=== PATIENT | female | born 1930 | race Caucasian/White ===

== ENCOUNTER → 2017-01-19 | Outpatient (CLI) | payer OTHER ==
[~2017-01-19] MED LIST: ALBU1AER9 INH; ASPCH81X PO; AZEL30SP NAE; CALC0.2510 PO; CALC500C3 PO; CEPH500C PO; CHOL20009 PO; DOCU100C31 PO; FLUC100T4 PO; FLUT0.15 NAE; FRS/40 PO; FURO-85 PO; INSDGI SC; INSU100I SQ; IPRASOL4 INH; KFL500 PO; LOSA1TAB PO; METO25TA56 PO; MONT1TAB3 PO; NTRSL3 UT; NYSCR30 EXT; PANT40TA PO; PRED20TA2 PO; SIME80CH PO; SYMIN160 INH; WARF5TAB90 PO
--- NOTE | 2017-01-19 14:24 | DIAGNOSTIC IMAGING REPORT ---
VIDEO SWALLOW STUDY CLINICAL HISTORY: Dyspepsia. COMPARISON STUDY: Video swallow dated 12/21/2009. Fluoroscopy time: 2.4 minutes. FINDINGS: Fluoroscopic guidance was provided to the department of speech pathology in performing a video swallow study. The patient consumed barium-impregnated pudding, cracker with paste, nectar thick liquid, and thin barium while the swallowing mechanism was observed in real-time. No penetration or aspiration was seen with any of the sampled textures. Mild esophageal dysmotility was observed. IMPRESSION: No penetration or aspiration was seen with any of the sampled textures. See dedicated speech pathology report for detailed findings and recommendations. Dictated: 01/19/2017 1:15 PM Transcribed: 01/19/2017 2:24 PM [facility] Electronically signed by: Dinh Skelton M.D. 01/19/2017 2:27 PM Dictated Date/Time: 01/19/2017 1:15 PM
--- NOTE | 2017-01-20 10:17 | SWALLOWING EVALUATION ---
HISTORY: This 86 year old woman was referred for a video swallow study at [facility] in order to rule out aspiration and identify the safest consistencies for optimal oral intake. The patient is reporting persistent solid food dysphagia. She often feels as though food becomes stuck in her throat, takes very small bites of food, and also reports frequent globus sensation. PMH is significant for heart failure, CAD, PVD, hypertension, hyperlipidemia, A-fib, DM type 2, asthma, CRI, and EF in the 50's. She has participated 2 previous EGD's (2013 and 2015) with dilatation and is scheduled for another in January 2017. An upper GI was performed in 2012 which identified esophageal dysmotility. A previous video swallow was completed as well in 2009, where poornima-pharyngeal swallowing was wnl, but had signs of esophageal dysfunction. Currently the patient describes a mechanical soft diet at home. PROCEDURE: The patient was seen in the Radiology Department of [facility] for the [facility]. Cursory examination of the oral cavity revealed upper and lower dentures of adequate fit. Movement of the articulators was wnl. The patient was seated upright in a wheelchair and was viewed in both the Anterior-Posterior (A-P) and Lateral planes. Volitional phonation exercises completed in the A-P plane revealed bilateral vocal fold movement and vocal intensity was judged to be low. In the lateral plane, the patient was given the following boluses: 1 tsp. thin liquid barium x 2, single swallow thin liquid barium self-presented from a cup, serial swallows of thin liquid barium self-presented via straw, 1 tsp. nectar-thick liquid barium, single swallow nectar-thick liquid barium self-presented from a cup, 1 tsp. barium pudding, and 1 club cracker with barium paste. The patient was then repositioned into the A-P plane and given the following boluses: 1 tsp. nectar-thick liquid barium and 1 tsp. barium pudding. Of note, this patient had difficulty with accepting any more than 1/2 teaspoon presentations. Even when she self-presented she took very small amounts. When educated and provided with prompts to take larger boluses for assessment purposes, she stated "I can't". RESULTS: Oral Stage: Lip closure was reduced as there was escape that progressed toward the mid-chin, mainly with teaspoon sips of liquids. The patient presented with premature spillage of less than half of the bolus during the liquid bolus task. Mastication and lingual motion for bolus transport was slow. There was trace retention lining the tongue and palate after the swallow. The initiation of the pharyngeal swallow was delayed, and triggered when the bolus head reached the pyriforms. Pharyngeal Stage: Soft palate elevation was complete. Laryngeal elevation revealed complete superior movement of the thyroid cartilage with complete approximation of the arytenoids to the epiglottic base. Anterior hyoid excursion and epiglottic deflection were complete. Laryngeal vestibular closure was complete with no evidence of contrast or air located in the vestibule at the height of the swallow. The pharyngeal stripping wave and pharyngeal contraction were also complete. The opening to the pharyngoesophageal segment (PES) was partially reduced, with partial distention and duration of the opening, but no significant bolus flow obstruction. Tongue base retraction was mildly reduced, with a narrow column of contrast being located between the tongue base and pharyngeal wall during the swallow. There was trace retention located in the valleculae and pyriforms after the swallow. There was no evidence of laryngeal penetration or aspiration during this study. Esophageal stage: There was mild mid esophageal retention noted. SUMMARY/RECOMMENDATIONS: This patient presents normal poornima-pharyngeal swallowing mechanics. She also presents with some mild signs and symptoms of esophageal dysfunction. The following is recommended: 1. Mechanical soft diet, slippery, and thin liquids. 2. Aspiration and GERD precautions. Fully upright for all p.o. intake and for 30-60 minutes after meals. HOB elevated to at least 30 degrees at all times, to include while sleeping. 3. Safe swallow strategies: Alternate solids and liquids as needed. Rest breaks and small frequent meals (already follows this). A summary of the results and recommendations was discussed with the patient with verbal understanding immediately following the study. She was also provided with both verbal and written education regarding a "slippery" diet to assist with improved comfort while eating. She typically already avoids dry, thick, and pasty foods as well. Verbal understanding was given. Thank you for referral of this patient. Please contact me at if any additional information is needed.
== END | disposition home or self-care (01) ==
LOC: C.RAD 10:29
PROVIDERS: ATTEND Nurse Practitioner Family
DX: R13.13 Dysphagia, pharyngeal phase (principal); K21.9 Gastro-esophageal reflux disease without esophagitis

== ENCOUNTER → 2017-02-01 | Day surgery (SDC) | payer OTHER ==
[2017-01-25 10:33] VITALS: Ht 165.1 cm; Wt 95.5 kg
[~2017-02-01] VITALS: Ht 165.1 cm; Wt 95.5 kg
[~2017-02-01] MED LIST changes: -CALC500C3 PO; -FLUC100T4 PO; -FURO-85 PO; +LIDOCAINE HCL 2% 2 ML VIAL (20MG/ML) ONE; -LOSA1TAB PO; -PRED20TA2 PO; +PROPOFOL IV EMULSION 10 MG/ML 20 ML VIAL IV ONE; -SIME80CH PO
[2017-02-01 08:20] VITALS: TEMP 36.4
--- NOTE | 2017-02-01 08:35 | Endo History and Physical ---
History & Physical Date of Service: February 01, 2017. Chief Complaint: dysphagia Referring Physician: Dr. Agustina Mock History of Present Illness History of recurrent solid food dysphagia + a tubular adenoma of the doudenum. Past Medical History Atrial Fibrillation, Diabetes, Angioplasty/Stent, Arthritis, Asthma, Gastrointestinal Disorder, Reflux, Blood Dyscrasias, High Cholesterol, Heart Disease, CHF, Hypertension, Kidney Disease Past Surgical History Hx Cardiac Surgery: Yes (CARDIAC CATH X 2 (5 TOTAL STENTS PLACED), CARDIOVERSION) Hx Internal Defibrillator: No Hx Pacemaker: No Hx Abdominal Surgery: Yes (BRIAN, NITHYA) Hx of Implantable Prosthesis: No Hx Post-Op Nausea and Vomiting: No Hx Cancer Surgery: No Hx Thoracic Surgery: No Hx Orthopedic: No Hx Urinary Tract Surgery: No Family History IBD Social History Smoking Status: Never Smoker Hx Substance Use: No Hx Alcohol Use: No Allergies Coded Allergies: Clofibrate (Verified Allergy, Severe, SWELLING, 01/25/17) SWELLING Rabeprazole (Verified Allergy, Intermediate, SOB/COUGHING AND THROAT FELT TIGHT/ABD. CRAMPING, 01/25/17) Fexofenadine (Verified Allergy, Mild, RASH, 01/25/17) Fluvastatin (Verified Allergy, Mild, HIVES, 01/25/17) Metformin (Verified Allergy, Mild, URINARY FREQUENCY/RASH/ITCH, 01/25/17) URINARY FREQUENCY Penicillins (Verified Allergy, Mild, HIVES, 01/25/17) (PER GEIGINGER NOTES, TOLERATES AMOXICILLIN FINE) Quinolones (Verified Allergy, Mild, RASH, 01/25/17) Chlorpropamide (Verified Allergy, Unknown, 01/25/17) Fibrates (Verified Allergy, Unknown, SWELLING, 01/25/17) Morphine and Related (Verified Allergy, Unknown, ITCHY/HIVES, 01/25/17) Moxifloxacin (Verified Allergy, Unknown, ITCHY/NAUSEA, 01/25/17) NSAIDs (Verified Allergy, Unknown, NAPROSYN, 01/25/17) Sulfa Drugs (Verified Allergy, Unknown, 01/25/17) Codeine (Verified Adverse Reaction, Mild, FEELS "HIGH" ON/ITCHING, 01/25/17) FEELS "HIGH" ON Gemfibrozil (Verified Adverse Reaction, Mild, ABDOMINAL CRAMPS AND DIZZINESS, 01/25/17) ABDOMINAL CRAMPS Rofecoxib (Verified Adverse Reaction, Mild, INDIGESTION, 01/25/17) INDIGESTION CI Pigment Blue 63 (Verified Adverse Reaction, Unknown, MYALGIAS AND CRAMPS, 01/25/17) Dexlansoprazole (Verified Adverse Reaction, Unknown, MYALGIAS AND CRAMPS, 01/25/17) Lisinopril (Verified Adverse Reaction, Unknown, COUGH, 01/25/17) Current Medications Reported Home Medications Medications Dose Route/Sig Max Daily Dose Days Date Category Dose Instructions Nystatin Cream (Nystatin) 90 Appln/30 Gm Cr 0 EXT PRN 01/25/17 Reported APPLY TO AFFECTED AREA BID Dymista (Azelastine Hcl-Fluticasone Pro) 1 Spr Spr 1 [place] JACOBO BID 30 01/25/17 Reported Vitamin D (Cholecalciferol) 2,000 Unit Tab 1 Tab PO BID 01/25/17 Reported Flonase Allergy Relief (Fluticasone Propionate (Nasal)) 50 Mcg/Act Spr 1 [place] JACOBO BID 01/25/17 Reported Symbicort 160/4.5 Inhaler (Budesonide/Formoterol Fumarate) Aero 2 Puffs INH BID 09/21/16 Reported Humalog (Insulin Lispro (Human)) 100 Unit/Ml Inj 2 Units SQ TIDM 09/21/16 Reported Lopressor (Metoprolol Tartrate) 25 Mg Tab 12.5 Mg PO BID 09/21/16 Reported Docusate Sodium 100 Mg Cap 100 Mg PO HS 09/21/16 Reported Lasix (Furosemide) 40 Mg Tab 40 Mg PO DAILY 09/21/16 Reported Nitrostat (Nitroglycerin) 0.3 Mg Tab 0.3 Mg UT UD PRN 08/31/[address] 1 TAB UNDER TONGUE EVERY 5 MINUTES NEEDED UP TO 3 DOSES IN 15 MINUTES Aspirin Chewable (Aspirin) 81 Mg Chew 81 Mg PO QPM 08/31/15 Reported Coumadin (Warfarin Sodium) 5 Mg Tab 5 Mg PO 2XWK 08/31/15 Reported TAKES MONDAY AND MONDAY Coumadin (Warfarin Sodium) 5 Mg Tab 2.5 Tab PO 4XWK 08/31/15 Reported TAKE 1/2 TABLET MONDAY, MONDAY, MON, MONDAY, MONDAY Proair Hfa (Albuterol) Aers 2 Puffs INH Q4 PRN 08/31/15 Reported Lantus (Insulin Glargine) Vial 24 Units SC QAM 07/11/14 Reported Duoneb (Ipratropium-Albuterol) 3 Ml Nebu 1 Treatment INH QID PRN 07/11/14 Reported Singulair (Montelukast Sodium) 10 Mg Tab 10 Mg PO QAM 07/11/14 Reported Rocaltrol Cap (Calcitriol) 0.25 Mcg Cap 0.25 Mcg PO QAM 07/11/14 Reported Protonix (Pantoprazole Sodium) 40 Mg Tab 40 Mg PO QAM 07/11/14 Reported Vital Signs Weight (Kilograms): 95.45 Height (Feet): 5 Height (Inches): 5 Date Time Temp Pulse Resp B/P Pulse Ox O2 Delivery O2 Flow Rate FiO2 02/01/17 08:20 36.4 73 20 180/65 98 Room Air Physical Exam General Appearance: no apparent distress Cardiovascular: Heart Auscultation: II/ ARTURO Abdomen: Inspection & Palpation: soft Liver: non-tender Assessment and Plan Evaluation for recurrent dysphagia, for EGD today. We have discussed the risks to include bleeding, infection, perforation, pain, and infection.
--- NOTE | 2017-02-01 09:05 | Discharge Instructions ---
Endoscopy Patient Instructions Date / Procedure(s) Performed February 01, 2017. EGD Allergy Information Coded Allergies: Clofibrate (Verified Allergy, Severe, SWELLING, 01/25/17) SWELLING Rabeprazole (Verified Allergy, Intermediate, SOB/COUGHING AND THROAT FELT TIGHT/ABD. CRAMPING, 01/25/17) Fexofenadine (Verified Allergy, Mild, RASH, 01/25/17) Fluvastatin (Verified Allergy, Mild, HIVES, 01/25/17) Metformin (Verified Allergy, Mild, URINARY FREQUENCY/RASH/ITCH, 01/25/17) URINARY FREQUENCY Penicillins (Verified Allergy, Mild, HIVES, 01/25/17) (PER GEIGINGER NOTES, TOLERATES AMOXICILLIN FINE) Quinolones (Verified Allergy, Mild, RASH, 01/25/17) Chlorpropamide (Verified Allergy, Unknown, 01/25/17) Fibrates (Verified Allergy, Unknown, SWELLING, 01/25/17) Morphine and Related (Verified Allergy, Unknown, ITCHY/HIVES, 01/25/17) Moxifloxacin (Verified Allergy, Unknown, ITCHY/NAUSEA, 01/25/17) NSAIDs (Verified Allergy, Unknown, NAPROSYN, 01/25/17) Sulfa Drugs (Verified Allergy, Unknown, 01/25/17) Codeine (Verified Adverse Reaction, Mild, FEELS "HIGH" ON/ITCHING, 01/25/17) FEELS "HIGH" ON Gemfibrozil (Verified Adverse Reaction, Mild, ABDOMINAL CRAMPS AND DIZZINESS, 01/25/17) ABDOMINAL CRAMPS Rofecoxib (Verified Adverse Reaction, Mild, INDIGESTION, 01/25/17) INDIGESTION CI Pigment Blue 63 (Verified Adverse Reaction, Unknown, MYALGIAS AND CRAMPS, 01/25/17) Dexlansoprazole (Verified Adverse Reaction, Unknown, MYALGIAS AND CRAMPS, 01/25/17) Lisinopril (Verified Adverse Reaction, Unknown, COUGH, 01/25/17) Discharge Date / Findings February 01, 2017. Normal esophagus 2 gastric polyps 1 small duodenal polyp Medication Instructions Stopped Medication(s): last dose Warfarin on Reported Home Medications Medications Dose Route/Sig Max Daily Dose Days Date Category Dose Instructions Nystatin Cream (Nystatin) 90 Appln/30 Gm Cr 0 EXT PRN 01/25/17 Reported APPLY TO AFFECTED AREA BID Dymista (Azelastine Hcl-Fluticasone Pro) 1 Spr Spr 1 [place] JACOBO BID 30 01/25/17 Reported Vitamin D (Cholecalciferol) 2,000 Unit Tab 1 Tab PO BID 01/25/17 Reported Flonase Allergy Relief (Fluticasone Propionate (Nasal)) 50 Mcg/Act Spr 1 [place] JACOBO BID 01/25/17 Reported Symbicort 160/4.5 Inhaler (Budesonide/Formoterol Fumarate) Aero 2 Puffs INH BID 09/21/16 Reported Humalog (Insulin Lispro (Human)) 100 Unit/Ml Inj 2 Units SQ TIDM 09/21/16 Reported Lopressor (Metoprolol Tartrate) 25 Mg Tab 12.5 Mg PO BID 09/21/16 Reported Docusate Sodium 100 Mg Cap 100 Mg PO HS 09/21/16 Reported Lasix (Furosemide) 40 Mg Tab 40 Mg PO DAILY 09/21/16 Reported Nitrostat (Nitroglycerin) 0.3 Mg Tab 0.3 Mg UT UD PRN 08/31/[address] 1 TAB UNDER TONGUE EVERY 5 MINUTES NEEDED UP TO 3 DOSES IN 15 MINUTES Aspirin Chewable (Aspirin) 81 Mg Chew 81 Mg PO QPM 08/31/15 Reported Coumadin (Warfarin Sodium) 5 Mg Tab 5 Mg PO 2XWK 08/31/15 Reported TAKES MONDAY AND MONDAY Coumadin (Warfarin Sodium) 5 Mg Tab 2.5 Tab PO 4XWK 08/31/15 Reported TAKE 1/2 TABLET MONDAY, MONDAY, MON, MONDAY, MONDAY Proair Hfa (Albuterol) Aers 2 Puffs INH Q4 PRN 08/31/15 Reported Lantus (Insulin Glargine) Vial 24 Units SC QAM 07/11/14 Reported Duoneb (Ipratropium-Albuterol) 3 Ml Nebu 1 Treatment INH QID PRN 07/11/14 Reported Singulair (Montelukast Sodium) 10 Mg Tab 10 Mg PO QAM 07/11/14 Reported Rocaltrol Cap (Calcitriol) 0.25 Mcg Cap 0.25 Mcg PO QAM 07/11/14 Reported Protonix (Pantoprazole Sodium) 40 Mg Tab 40 Mg PO QAM 07/11/14 Reported Provider Instructions Activity Restrictions - No exercising or heavy lifting for 24 hours. - Do not drink alcohol the day of the procedure. - Do not drive a car or operate machinery until the day after the procedure. - Do not make any important decisions or sign important papers in 24 hours after the procedure. Following Day: - Return to full activity which may include returning to work/school. Diet Start your diet with liquids and light foods (jello, soup, juice, toast). Then eat your usual diet if not nauseated. Treatment For Common After Affects For mild abdominal pain, bloating, or excessive gas: - Rest - Eat lightly - Lie on right side Follow-Up Information Follow-up with Dr. Agustina Mock as scheduled Await pathology results If difficulty swallowing persists would consider an ENT evaluation Anesthesia Information What You Should Know You have had a procedure that required some medicine to reduce anxiety and discomfort. This treatment is called moderate sedation. After receiving the treatment, you may be sleepy, but you will be able to breathe on your own. The effects of the treatment may last for several hours. Follow these instructions along with Activity/Diet recommendations noted above: * Do NOT do anything where dizziness or clumsiness would be dangerous. * Rest quietly at home today, then you can be up and about tomorrow. * Have a responsible person stay with you the rest of today. * You may have had an I.V. today. If so, you may take the dressing off later today. Recommendations Call your doctor if: * Trouble breathing * Continuous vomiting for more than 24 hours * Temperature above 101 degrees * Severe abdominal pain or bloating * Pain not relieved by pain medicine ordered * There is increased drainage or redness from any incision * A large amount of rectal bleeding greater than 2-3 tablespoons. (If you had a polyp/s removed or have hemorrhoids, a small amount of blood - from the rectum is to be expected.) * You have any unanswered questions or concerns. IN THE EVENT OF A SERIOUS EMERGENCY, GO TO THE NEAREST EMERGENCY ROOM Your discharge instructions were prepared by provider Gisselle Cooley. Patient Instructions Signature Page Traci Christensen Patient (or Guardian) Signature/Date: I have read and understand the instructions given to me by my caregivers. Caregiver/RN/Doctor Signature/Date: The above-named patient and/or guardian has received patient instructions on this date. + Original Patient Signature Page (only) stays with chart. Please make copy for patient.
[2017-02-01 09:30] VITALS: BP 133/51; PULSE 71; O2SAT 97
--- NOTE | 2017-02-01 09:44 | Anesthesiology Progress Note ---
Anesthesia Post Op Note Date & Time February 01, 2017 at 09:43 Vital Signs Pain Intensity: 0 Vital Signs Past 12 Hours Date Time Temp Pulse Resp B/P Pulse Ox O2 Delivery O2 Flow Rate FiO2 02/01/17 09:30 71 20 133/51 97 Room Air 02/01/17 09:15 71 20 130/52 98 Room Air 02/01/17 09:00 61 20 102/41 98 Room Air 02/01/17 08:20 36.4 73 20 180/65 98 Room Air Notes Mental Status: alert / awake / arousable, participated in evaluation Pt Amnestic to Procedure: Yes Nausea / Vomiting: adequately controlled Pain: adequately controlled Airway Patency, RR, SpO2: stable & adequate BP & HR: stable & adequate Hydration State: stable & adequate Anesthetic Complications: no major complications apparent
--- NOTE | 2017-02-01 09:46 | GI REPORT ---
Procedure Date: 02/01/2017 8:18 AM Procedure: Upper GI endoscopy Indications: Dysphagia Medicines: Monitored Anesthesia Care Complications: No immediate complications. Estimated blood loss: Minimal. Estimated Blood Loss: Estimated blood loss was minimal. Procedure: Pre-Anesthesia Assessment: - Prior to the procedure, a History and Physical was performed, and patient medications, allergies and sensitivities were reviewed. The patient's tolerance of previous anesthesia was reviewed. - The risks and benefits of the procedure and the sedation options and risks were discussed with the patient. All questions were answered and informed consent was obtained. - Patient identification and proposed procedure were verified prior to the procedure by the physician, the nurse and the system support developer. The procedure was verified in the procedure room. - Pre-procedure physical examination revealed no contraindications to sedation. - ASA Grade Assessment: III - A patient with severe systemic disease. - After reviewing the risks and benefits, the patient was deemed in satisfactory condition to undergo the procedure. - The anesthesia plan was to use monitored anesthesia care (MAC). - Immediately prior to administration of medications, the patient was re-assessed for adequacy to receive sedatives. - The heart rate, respiratory rate, oxygen saturations, blood pressure, adequacy of pulmonary ventilation, and response to care were monitored throughout the procedure. - The physical status of the patient was re-assessed after the procedure. After obtaining informed consent, the endoscope was passed under direct vision. Throughout the procedure, the patient's blood pressure, pulse, and oxygen saturations were monitored continuously. The scope was introduced through the mouth, and advanced to the second part of duodenum. The upper GI endoscopy was accomplished without difficulty. The patient tolerated the procedure well. Findings: No endoscopic abnormality was evident in the esophagus to explain the patient's complaint of dysphagia. It was decided, however, to proceed with dilation of the entire esophagus. A guidewire was placed and the scope was withdrawn. Dilation was performed with a Savary dilator with no resistance at 54 Fr. The endoscope was then reinserted to evaluate the success of the procedure. Estimated blood loss: none. The Z-line was regular and was found 36 cm from the incisors. Two 7 to 10 mm semi-sessile polyps with no bleeding and no stigmata of recent bleeding were found in the gastric body. Biopsies were taken with a cold forceps for histology. Estimated blood loss was minimal. The duodenal bulb was normal. One 5 mm sessile polyp with no bleeding was found in the second part of the duodenum. The polyp was removed with a cold biopsy forceps. Resection and retrieval were complete. Estimated blood loss was minimal. The gastric fundus, incisura and gastric antrum were normal. Impression: - No endoscopic esophageal abnormality to explain patient's dysphagia. Esophagus dilated. Dilated. - Z-line regular, 36 cm from the incisors. - Two gastric polyps. Biopsied. - Normal duodenal bulb. - One duodenal polyp. Resected and retrieved. - Normal gastric fundus, incisura and antrum. Recommendation: - Discharge patient to home (ambulatory). - Advance diet as tolerated today. - Observe patient's clinical course following today's procedure with therapeutic intervention. - Await pathology results. - Repeat the upper endoscopy PRN for retreatment. Consider ENT evalaution if symptoms persist. Gisselle Cooley D.O. Gisselle Cooley DO 02/01/2017 9:45:57 AM This report has been signed electronically. Note Initiated On: 02/01/2017 8:18 AM I attest to the content of the Intraoperative Record and orders documented therein, exceptions below
== END | disposition home or self-care (01) ==
LOC: C.GI 07:47
PROVIDERS: ATTEND Internal Medicine Gastroenterology
DX: R13.10 Dysphagia, unspecified (principal); K31.7 Polyp of stomach and duodenum; E11.22 Type 2 diabetes mellitus with diabetic chronic kidney disease; N18.3 Chronic kidney disease, stage 3 (moderate); I12.9 Hypertensive chronic kidney disease with stage 1 through stage 4 chronic kidney disease, or unspecified chronic kidney disease; I48.91 Unspecified atrial fibrillation; J45.909 Unspecified asthma, uncomplicated; E78.00 Pure hypercholesterolemia, unspecified; I50.9 Heart failure, unspecified; J44.9 Chronic obstructive pulmonary disease, unspecified; Z90.49 Acquired absence of other specified parts of digestive tract; Z88.0 Allergy status to penicillin; Z88.5 Allergy status to narcotic agent; Z88.2 Allergy status to sulfonamides; Z79.4 Long term (current) use of insulin; Z79.82 Long term (current) use of aspirin; Z79.01 Long term (current) use of anticoagulants; Z68.35 Body mass index [BMI] 35.0-35.9, adult

== ENCOUNTER 2018-05-04 10:51 | Inpatient (IN) | payer OTHER ==
[~2018-05-04] VITALS: Ht 162.6 cm; Wt 100.5 kg
[~2018-05-04 10:51] MED LIST changes: +ACET-1256 PO; -ALBU1AER9 INH; -CEPH500C PO; -CHOL20009 PO; -INSDGI SC; +INSU100I23 SC; +IPRA-64 INH; -IPRASOL4 INH; -KFL500 PO; +LCTX PO; -LIDOCAINE HCL 2% 2 ML VIAL (20MG/ML) ONE; -NYSCR30 EXT; -PROPOFOL IV EMULSION 10 MG/ML 20 ML VIAL IV ONE; +VNTHFA/IN INH
--- NOTE | 2018-05-04 11:49 | EMERGENCY ROOM VISIT NOTE ---
History Report prepared by Luis: Ly Huber Under the Supervision of: Dr. Yomi Denny M.D. 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 She states her wound is seeping and quite painful. She went to the wound clinic where she was supposed to receive an outpatient PICC line however, she had no one who could help her at home so she was sent to the ED for possible further evaluation. Pt has some nausea but denies any fevers, vomiting. She has a hx of diabetes. 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 A total of ten systems were reviewed and were otherwise negative. Past Medical & Surgical Medical Problems: (1) Bronchitis (2) Cellulitis (3) Chest pain (4) Open wound of left hip (5) Venous stasis Family History Heart disease Social History Smoking Status: Never Smoker Drug Use: none Marital Status: Occupation Status: retired Current/Historical Medications Scheduled Aspirin (Aspirin Chewable), 81 MG PO QPM Azelastine Hcl-Fluticasone Pro (Dymista), 2 SPRY JACOBO BID Budesonide/Formoterol Fumarate (Symbicort 160/4.5 Inhaler ), 2 PUFFS INH BID Calcitriol (Calcitriol), 0.5 MCG PO DAILY Furosemide (Lasix), 20 MG PO BID Hydrocortisone 2.5% (Rectal) (Anusol-Hc 2.5%), 1 APPLN TOP TID Hydrocortisone Acetate (Anucort-Hc), 1 SUPP AK BID Insulin Glargine (Basaglar Kwikpen), 30 UNITS SC DAILY Losartan Potassium (Losartan Potassium), 12.5 MG PO DAILY Metoprolol Tartrate (Lopressor) (Lopressor), 12.5 MG PO BID Montelukast Sodium (Singulair), 10 MG PO QAM Nystatin (Nystatin Cream), 0 EXT PRN Pantoprazole (Protonix), 40 MG PO QAM Warfarin Sodium (Coumadin), 2.5 TAB PO 3XWK Warfarin Sodium (Coumadin), 5 MG PO 4XWK Scheduled PRN Albuterol Hfa (Ventolin Hfa), 2 PUFFS INH Q4 PRN for SOB/Wheezing Allergies Coded Allergies: Clofibrate (Verified Allergy, Severe, SWELLING, 05/04/18) SWELLING Rabeprazole (Verified Allergy, Intermediate, SOB/COUGHING AND THROAT FELT TIGHT/ABD. CRAMPING, 05/04/18) Fexofenadine (Verified Allergy, Mild, RASH, 05/04/18) Fibrates (Verified Allergy, Mild, SWELLING, 05/04/18) Fluvastatin (Verified Allergy, Mild, HIVES, 05/04/18) Metformin (Verified Allergy, Mild, URINARY FREQUENCY/RASH/ITCH, 05/04/18) URINARY FREQUENCY Morphine and Related (Verified Allergy, Mild, ITCHY/HIVES, 05/04/18) Moxifloxacin (Verified Allergy, Mild, ITCHY/NAUSEA, 05/04/18) Penicillins (Verified Allergy, Mild, HIVES, 05/04/18) (PER GEIGINGER NOTES, TOLERATES AMOXICILLIN FINE) Quinolones (Verified Allergy, Mild, RASH, 05/04/18) Chlorpropamide (Verified Allergy, Unknown, UNKNOWN, 05/04/18) NSAIDs (Verified Allergy, Unknown, UNKNOWN, 05/04/18) Sulfa Drugs (Verified Allergy, Unknown, UNKNOWN, 05/04/18) CI Pigment Blue 63 (Verified Adverse Reaction, Mild, MYALGIAS AND CRAMPS, 05/04/18) Codeine (Verified Adverse Reaction, Mild, FEELS "HIGH" ON/ITCHING, 05/04/18 ) FEELS "HIGH" ON Dexlansoprazole (Verified Adverse Reaction, Mild, MYALGIAS AND CRAMPS, 07/12) Gemfibrozil (Verified Adverse Reaction, Mild, ABDOMINAL CRAMPS AND DIZZINESS, 05/04/18) ABDOMINAL CRAMPS Lisinopril (Verified Adverse Reaction, Mild, COUGH, 05/04/18) Rofecoxib (Verified Adverse Reaction, Mild, INDIGESTION, 05/04/18) INDIGESTION Physical Exam Vital Signs Date Time Temp Pulse Resp B/P (MAP) Pulse Ox O2 Delivery O2 Flow Rate FiO2 05/04/18 12:33 61 191/64 98 Room Air 05/04/18 10:55 36.3 69 18 174/69 99 Room Air Physical Exam Physical Exam GENERAL: She is oriented to person, place, and time. She appears well- developed and well-nourished. She does not appear distressed. HENT: Exam performed. Head: Normocephalic and atraumatic. Right Ear: External ear normal. No mastoid tenderness. Left Ear: External ear normal. No mastoid tenderness. Mouth/Throat: The oropharynx is clear and moist. No trismus in the jaw. No dental abscesses or uvula swelling. No oropharyngeal exudate or tonsillar abscesses. EYES: Conjunctivae and EOM are normal. Pupils are equal, round, and reactive to light. Right eye exhibits no discharge. Left eye exhibits no discharge. No scleral icterus. NECK: Normal range of motion. Neck supple. No JVD present. No spinous process tenderness present. No carotid bruit present. No rigidity. No tracheal deviation and normal range of motion present. No Brudzinski's sign and no Kernig 's sign noted. CV: Normal rate, regular rhythm, normal heart sounds and intact distal pulses. There is no peripheral edema. Palpable radial pulses bue. PULM/CHEST: Effort normal and breath sounds normal. No respiratory distress. No stridor. She has no wheezes. She has no rales. Chest Wall: She exhibits no tenderness. ABD: The abdomen is soft. Bowel sounds are normal. She has no distension. No mass is present. There is no tenderness. There is no rebound, no guarding, no Blanton's sign and no tenderness at McBurney's point. Rovsig negative MUSC/SKEL: Normal range of motion. There is no peripheral edema, tenderness or deformity. LYMPH: No cervical adenopathy. NEURO: She is alert and oriented to person, place, and time. She has normal strength. No cranial nerve deficit or sensory deficit. Coordination and gait normal. GCS eye subscore is 4. GCS verbal subscore is 5. GCS motor subscore is 6. Cerebellar tests wnl. SKIN: Skin is warm and dry. She is not diaphoretic. Stage II pressure ulcer with purulent foul-smelling discharge, minimal surrounding erythema. No fluctuance.. PSYCH: She has a normal mood and affect. Behavior is normal. Judgment and thought content normal. Medical Decision & Procedures Laboratory Results 05/04/18 12:19 Red Blood Count 3.71, Mean Corpuscular Volume 86.0, Mean Corpuscular Hemoglobin 27.5, Mean Corpuscular Hemoglobin Concent 32.0, Mean Platelet Volume 10.2, Neutrophils (%) (Auto) 72.9, Lymphocytes (%) (Auto) 18.5, Monocytes (%) (Auto) 6.5, Eosinophils (%) (Auto) 1.4, Basophils (%) (Auto) 0.5, Neutrophils # (Auto) 4.80, Lymphocytes # (Auto) 1.22, Monocytes # (Auto) 0.43, Eosinophils # (Auto) 0.09, Basophils # (Auto) 0.03 05/04/18 12:19 Test 05/04/18 11:22 05/04/18 12:19 Bedside Glucose 91 mg/dl (70-90) White Blood Count 6.58 K/uL (4.8-10.8) Red Blood Count 3.71 M/uL (4.2-5.4) Hemoglobin 10.2 g/dL (12.0-16.0) Hematocrit 31.9 % (37-47) Mean Corpuscular Volume 86.0 fL (80-100) Mean Corpuscular Hemoglobin 27.5 pg (25-34) Mean Corpuscular Hemoglobin Concent 32.0 g/dl (32-36) Platelet Count 203 K/uL (130-400) Mean Platelet Volume 10.2 fL (7.4-10.4) Neutrophils (%) (Auto) 72.9 % Lymphocytes (%) (Auto) 18.5 % Monocytes (%) (Auto) 6.5 % Eosinophils (%) (Auto) 1.4 % Basophils (%) (Auto) 0.5 % Neutrophils # (Auto) 4.80 K/uL (1.4-6.5) Lymphocytes # (Auto) 1.22 K/uL (1.2-3.4) Monocytes # (Auto) 0.43 K/uL (0.11-0.59) Eosinophils # (Auto) 0.09 K/uL (0-0.5) Basophils # (Auto) 0.03 K/uL (0-0.2) RDW Standard Deviation 51.2 fL (36.4-46.3) RDW Coefficient of Variation 16.2 % (11.5-14.5) Immature Granulocyte % (Auto) 0.2 % Immature Granulocyte # (Auto) 0.01 K/uL (0.00-0.02) Anion Gap 6.0 mmol/L (3-11) Estimated GFR () 30.5 Estimated GFR (Non- 26.3 BUN/Creatinine Ratio 21.9 (10-20) Lactic Acid Level 1.2 mmol/L (0.4-2.0) Calcium Level 9.8 mg/dl (8.5-10.1) Laboratory results reviewed by me Medications Administered Medications (Trade) Dose Ordered Sig/Amanda Route Start Time Stop Time Status Last Admin Dose Admin Cefepime HCl 1000 mg/Dextrose 111 ml @ 200 mls/hr NOW STAT IV 05/04/18 12:07 05/04/18 12:40 DC 05/04/18 12:32 200 MLS/HR ED Course 1138: The patient was evaluated in room C3. A complete history and physical exam was performed. 1204: Wound culture from April 23 grew out pseudomonas. There is a note on April 30 from the wound care center from Dr. Zuniga which stated that she cannot take quinolones due to her allergy and she wanted to start her on Cefepime. 1207: Ordered Cefepime HCl 1000 m /Dextrose 111 ml @ 200 mls/hr IV 1321: Labs within normal limits. [employer] Driller evaluated the patient and there is no way to set up for the patient have outpatient infusions of cefepime, therefore she will be admitted to the hospital. Discussed the patient's case with Dr. Suni Mcmillan PA-C. The patient will be evaluated for further treatment and disposition. Medical Decision 1138: The patient was evaluated in room C3. A complete history and physical exam was performed. 1204: Wound culture from April 23 grew out pseudomonas. There is a note on April 30 from the wound care center from Dr. Zuniga which stated that she cannot take quinolones due to her allergy and she wanted to start her on Cefepime. 1207: Ordered Cefepime HCl 1000 m /Dextrose 111 ml @ 200 mls/hr IV 1321: Labs within normal limits. [employer] Driller evaluated the patient and there is no way to set up for the patient have outpatient infusions of cefepime, therefore she will be admitted to the hospital. Discussed the patient's case with Dr. Suni Mcmillan PA-C. The patient will be evaluated for further treatment and disposition. Medication Reconcilliation Current Medication List: was personally reviewed by me Blood Pressure Screening Patient's blood pressure: Elevated blood pressure Referred to Hospitalist Consults Time Called: [id number] Consulting Physician: Dr. Suni Mcmillan PA-C Returned Call: 1321 Discussed the patient's case with Dr. Suni Mcmillan PA-C. The patient will be evaluated for further treatment and disposition. Impression Primary Impression: Pseudomonas aeruginosa infection Additional Impressions: Wound of skin Failure of outpatient treatment Scribe Attestation The scribe's documentation has been prepared under my direction and personally reviewed by me in its entirety. I confirm that the note above accurately reflects all work, treatment, procedures, and medical decision making performed by me. The chart was completed utilizing [employer] Speech voice recognition software. Grammatical errors, random word insertions, pronoun errors, and incomplete sentences are an occasional consequence of this system due to software limitations, ambient noise, and hardware issues. Any formal questions or concerns about the content, text, or information contained within the body of this dictation should be directly addressed to the physician for clarification. Departure Information Dispostion Being Evaluated By Hospitalist (Dr. Suni Mcmillan PA-C) Referrals Agustina Mock D.O. (PCP) Patient Instructions My [facility] Problem Qualifiers
[2018-05-04] MEDS ORDERED: CEFEPIME IV 1,000 MG in DEXTROSE 5% 100ML 100 ML IV STA (12:07)
[2018-05-04 12:32] LABS: BASO % 0.5 %; BASO ABS # 0.03 K/uL (0-0.2); EOS % 1.4 %; EOS ABS # 0.09 K/uL (0-0.5); HEMATOCRIT 31.9 % (37-47); HEMOGLOBIN 10.2 g/dL (12.0-16.0); IG# 0.01 K/uL (0.00-0.02); LYMPH % 18.5 %; LYMPH ABS # 1.22 K/uL (1.2-3.4); MEAN CORPUSCULAR HEMOGLOBIN 27.5 pg (25-34); MEAN PLATELET VOLUME 10.2 fL (7.4-10.4); MONO % 6.5 %; MONO ABS # 0.43 K/uL (0.11-0.59); NEUT % 72.9 %; PLATELET COUNT 203 K/uL (130-400); RED CELL DISTRIBUTION WIDTH CV 16.2 % (11.5-14.5); RED CELL DISTRIBUTION WIDTH SD 51.2 fL (36.4-46.3); WHITE BLOOD COUNT 6.58 K/uL (4.8-10.8)
[2018-05-04] MEDS ORDERED: CALC0.5C PO (12:38)
[2018-05-04] MEDS ORDERED: CZR25 PO (12:38)
[2018-05-04] MEDS ORDERED: FURO-85 PO (12:38)
[2018-05-04] MEDS ORDERED: HYDR2.5C37 TOP (12:38)
[2018-05-04] MEDS ORDERED: ANSHCS PR (12:38)
[2018-05-04 12:48] LABS: BLOOD UREA NITROGEN 38 mg/dl (7-18); CALCIUM 9.8 mg/dl (8.5-10.1); CARBON DIOXIDE 29 mmol/L (21-32); CREATININE 1.72 mg/dl (0.60-1.20); GLUCOSE 73 mg/dl (70-99); POTASSIUM 3.9 mmol/L (3.5-5.1); SODIUM 132 mmol/L (136-145)
[2018-05-04 13:45] VITALS: O2SAT 98; Ht 162.6 cm; Wt 100.5 kg
[2018-05-04] MEDS ORDERED: CARBOHYDRATES FOR HYPOGLYCEMIA PO PRN (14:15)
[2018-05-04] MEDS ORDERED: GLUCAGON FOR INJ 1 MG VIAL SQ PRN (14:15)
[2018-05-04] MEDS ORDERED: GLUCOSE 40% GEL 15 GM TUBE PO PRN (14:15)
[2018-05-04] MEDS ORDERED: GLUCOSE 10 TABS/TUBE PO PRN (14:15)
[2018-05-04] MEDS ORDERED: DEXTROSE 50% 50 ML SYR IV PRN (14:15)
[2018-05-04] MEDS ORDERED: FLUT0.15 (14:27)
[2018-05-04] MEDS ORDERED: DOCU-94 PO (14:27)
[2018-05-04] MEDS ORDERED: IV FLUIDS COMPLETED PRN (14:30)
--- NOTE | 2018-05-04 15:31 | History and Physical ---
History & Physical Date & Time of Service: May 04, 2018 at 14:47 Chief Complaint: Left Leg Infection Sent For Iv Meds,Hypoglycemia Primary Care Physician: Agustina Mock D.O. 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 Son is present at bedside. She was last seen in outpatient wound clinic on 04/30/18 in which she underwent debridement of left hip wound. She had recent wound culture done on 04/23/18 which grew pansensitive Pseudomonas. Due to patient's multiple drug allergies, failed outpatient Keflex therapy and it was recommended she begin IV cefepime [address] Zuniga. Patient lives alone at home and unable to administer antibiotics therefore she was referred to ED for admission for IV antibiotic therapy. She elicits she has had a wound for 2-3 months, unsure how obtained wound, denies fall, has been following wound clinic for 4 weeks. Her next follow-up is on 05/14/18. Overall she complains of chronic shortness of breath secondary to asthma, occassional cough that is productive with clear, white sputum, hemorrhoids, constipation, nausea. She denies fever, chills, sweats, lightheadedness, dizziness, chest pain, palpitations, hemoptysis, emesis, diarrhea. Last BM was yesterday, but difficulty moving bowels. Urinating with out difficulty and denies dysuria, hematuria, increased urgency with urination. She does complain of left hip pain however states, "it does not hurt as bad as it did." Lately her blood sugars have been running on the lower side in which he checks blood sugars regularly, usually runs between 120 and 140. Her last A1C was done on 01/31/18 and was 7.3 Past Medical/Surgical History Medical Problems: (1) Anemia of chronic disease Status: Chronic (2) Asthma, moderate Status: Chronic (3) CAD (coronary artery disease) Status: Chronic (4) Chronic a-fib Status: Chronic (5) CKD (chronic kidney disease), stage IV Status: Chronic (6) Diastolic CHF Permanent Comment: last echo 04/14/09 LVEF 60-65% with mild LVH Status: Chronic (7) Esophageal dysmotility Status: Chronic (8) GERD (gastroesophageal reflux disease) Status: Chronic (9) HTN (hypertension) Status: Chronic (10) Hyperparathyroidism Status: Chronic (11) Mild nonproliferative diabetic retinopathy associated with type 2 diabetes mellitus Status: Chronic (12) Obesity (BMI 30-39.9) Status: Chronic (13) PVD (peripheral vascular disease) Status: Chronic (14) Type 2 diabetes mellitus Status: Chronic (15) Venous stasis Status: Chronic Surgical Problems: (1) History of cholecystectomy Status: Chronic (2) History of coronary artery stent placement Permanent Comment: x 5 today, initially done 01/2007 at [facility] in [place], in 2006, and 2010 Status: Chronic (3) History of esophagogastroduodenoscopy (EGD) Permanent Comment: multiple done in past, most recent 03/2018 with dilation. 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 CRAMPING, 05/04/18) Fexofenadine (Verified Allergy, Mild, RASH, 05/04/18) Fibrates (Verified Allergy, Mild, SWELLING, 05/04/18) Fluvastatin (Verified Allergy, Mild, HIVES, 05/04/18) Metformin (Verified Allergy, Mild, URINARY FREQUENCY/RASH/ITCH, 05/04/18) URINARY FREQUENCY Morphine and Related (Verified Allergy, Mild, ITCHY/HIVES, 05/04/18) Moxifloxacin (Verified Allergy, Mild, ITCHY/NAUSEA, 05/04/18) Penicillins (Verified Allergy, Mild, HIVES, 05/04/18) (PER GEIGINGER NOTES, TOLERATES AMOXICILLIN FINE) Quinolones (Verified Allergy, Mild, RASH, 05/04/18) Chlorpropamide (Verified Allergy, Unknown, UNKNOWN, 05/04/18) NSAIDs (Verified Allergy, Unknown, UNKNOWN, 05/04/18) Sulfa Drugs (Verified Allergy, Unknown, UNKNOWN, 05/04/18) CI Pigment Blue 63 (Verified Adverse Reaction, Mild, MYALGIAS AND CRAMPS, 05/04/18) Codeine (Verified Adverse Reaction, Mild, FEELS "HIGH" ON/ITCHING, 05/04/18 ) FEELS "HIGH" ON Dexlansoprazole (Verified Adverse Reaction, Mild, MYALGIAS AND CRAMPS, 07/12) Gemfibrozil (Verified Adverse Reaction, Mild, ABDOMINAL CRAMPS AND DIZZINESS, 05/04/18) ABDOMINAL CRAMPS Lisinopril (Verified Adverse Reaction, Mild, COUGH, 05/04/18) Rofecoxib (Verified Adverse Reaction, Mild, INDIGESTION, 05/04/18) INDIGESTION Home Medications Scheduled Aspirin (Aspirin Chewable), 81 MG PO QPM Azelastine Hcl-Fluticasone Pro (Dymista), 2 SPRY JACOBO BID Budesonide/Formoterol Fumarate (Symbicort 160/4.5 Inhaler ), 2 PUFFS INH BID Calcitriol (Calcitriol), 0.5 MCG PO DAILY Docusate Sodium (Colace), 1 CAP PO BID Fluticasone Propionate (Nasal) (Flonase Allergy Relief), BID Furosemide (Lasix), 20 MG PO BID Hydrocortisone 2.5% (Rectal) (Anusol-Hc 2.5%), 1 APPLN TOP TID Hydrocortisone Acetate (Anucort-Hc), 1 SUPP FL BID Insulin Glargine (Basaglar Kwikpen), 28 UNITS SC DAILY Losartan Potassium (Losartan Potassium), 12.5 MG PO DAILY Metoprolol Tartrate (Lopressor) (Lopressor), 12.5 MG PO BID Montelukast Sodium (Singulair), 10 MG PO QAM Nystatin (Nystatin Cream), 0 EXT PRN Pantoprazole (Protonix), 40 MG PO QAM Warfarin Sodium (Coumadin), 2.5 TAB PO 3XWK Warfarin Sodium (Coumadin), 5 MG PO 4XWK Scheduled PRN Albuterol Hfa (Ventolin Hfa), 2 PUFFS INH Q4 PRN for SOB/Wheezing Review of Systems As noted per HPI, 10 systems reviewed and negative unless noted above. Physical Exam Vital Signs Date Time Temp Pulse Resp B/P (MAP) Pulse Ox O2 Delivery O2 Flow Rate FiO2 05/04/18 14:29 63 171/58 100 Room Air 05/04/18 13:45 98 Room Air 05/04/18 12:33 61 191/64 98 Room Air 05/04/18 10:55 36.3 69 18 174/69 99 Room Air General Appearance: WD/WN (Elderly female), no apparent distress, + obese Head: normocephalic, atraumatic Eyes: normal inspection, sclerae normal ENT: normal ENT inspection, hearing grossly normal, + pertinent finding (mucus membranes moist) Neck: supple, no adenopathy, no JVD Respiratory/Chest: chest non-tender, lungs clear, no accessory muscle use, + decreased breath sounds (poor inspiratory effort), + crackles (mild bibasilar) Cardiovascular: no murmur, + irregularly irregular, + abnormal peripheral pulses (diminished pedal pulses b/l, +1) Abdomen/GI: normal bowel sounds, non tender, soft, no organomegaly, + distended (secondary to obesity) Back: normal inspection, no CVA tenderness, no muscle spasm, normal range of motion Extremities/Musculoskelatal: no pedal edema, + pertinent finding (b/l lower extremity compression dressings bilaterally) Neurologic/Psych: alert, normal mood/affect, oriented x 3 Skin: normal color, no rash, + pertinent finding (+ left, lateral superifical hip wound x 2, erythematous base with minimal slough on periphery, no drainage, approx 1cm x 1cm) Diagnostics Laboratory Results Results Past 24 Hours Test 05/04/18 11:01 05/04/18 11:22 05/04/18 12:19 Range/Units Bedside Glucose 69 91 70-90 mg/dl White Blood Count 6.58 4.8-10.8 K/uL Red Blood Count 3.71 4.2-5.4 M/uL Hemoglobin 10.2 12.0-16.0 g/dL Hematocrit 31.9 37-47 % Mean Corpuscular Volume 86.0 80-100 fL Mean Corpuscular Hemoglobin 27.5 25-34 pg Mean Corpuscular Hemoglobin Concent 32.0 32-36 g/dl Platelet Count 203 130-400 K/uL Mean Platelet Volume 10.2 7.4-10.4 fL Neutrophils (%) (Auto) 72.9 % Lymphocytes (%) (Auto) 18.5 % Monocytes (%) (Auto) 6.5 % Eosinophils (%) (Auto) 1.4 % Basophils (%) (Auto) 0.5 % Neutrophils # (Auto) 4.80 1.4-6.5 K/uL Lymphocytes # (Auto) 1.22 1.2-3.4 K/uL Monocytes # (Auto) 0.43 0.11-0.59 K/uL Eosinophils # (Auto) 0.09 0-0.5 K/uL Basophils # (Auto) 0.03 0-0.2 K/uL RDW Standard Deviation 51.2 36.4-46.3 fL RDW Coefficient of Variation 16.2 11.5-14.5 % Immature Granulocyte % (Auto) 0.2 % Immature Granulocyte # (Auto) 0.01 0.00-0.02 K/uL Sodium Level 132 136-145 mmol/L Potassium Level 3.9 3.5-5.1 mmol/L Chloride Level 97 98-107 mmol/L Carbon Dioxide Level 29 21-32 mmol/L Anion Gap 6.0 3-11 mmol/L Blood Urea Nitrogen 38 7-18 mg/dl Creatinine 1.72 0.60-1.20 mg/dl Estimated GFR () 30.5 Estimated GFR (Non- 26.3 BUN/Creatinine Ratio 21.9 10-20 Random Glucose 73 70-99 mg/dl Lactic Acid Level 1.2 0.4-2.0 mmol/L Calcium Level 9.8 8.5-10.1 mg/dl Microbiology Results 05/04/18 Blood Culture, Received Pending 05/04/18 Blood Culture, Received Pending GRAM STAIN Final 04/24/18-920 RESULT NO ORGANISMS SEEN NO WBCs SEEN SURFACE WOUND CULTURE Final 04/25/18-834 Organism 1 PSEUDOMONAS AERUGINOSA QUANITY RARE SENS SENSITIVITY TO FOLLOW +MIXWOUND PLUS LOW COUNTS OF PROBABLE SKIN EVELIA 1. PSEUDOMONAS AERUGINOSA Target Route Dose RX AB Cost M.I.C. IQ ------ ----- ------ -- ------ -------- - ------ CEFTAZIDIME S 4 CEFEPIME S <=4 IMIPENEM S <=1 AZTREONAM S <=4 GENTAMICIN S <=4 TOBRAMYCIN S <=4 AMIKACIN S <=16 CIPROFLOXACIN S <=1 LEVOFLOXACIN S <=2 PIP/TAZO S <=16 S = SENSITIVE I = INTERMEDIATE R = RESISTANT Impression Assessment and Plan (1) Pseudomonas aeruginosa infection Assessment & Plan: This is a 88 year old F who has a significant PMH of insulin dependent T2DM, HTN, Chronic Afib on assisted warfarin therapy, CKD-4, DHF, CAD, PVD, Anemia of chronic disease, hyperparathyroidism and obesity who presents to [facility] secondary to 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 Son is present at bedside. She was last seen in outpatient wound clinic on 04/30/18 in which she underwent debridement of left hip wound. She had recent wound culture done on 04/23/18 which grew pansensitive Pseudomonas. Due to patient's multiple drug allergies, failed outpatient Keflex therapy, she will be admitted for IV antibiotic therapy [address] Zuniga. -IV Cefepime 2g daily x 14 days -Consult [facility] ID, Dr Toht for antibiotic management -Await blood cultures -Check CBC, BMP, INR, A1C in a.m. -Nursing wound care consult (2) Stage II pressure ulcer of left hip Assessment & Plan: Recently underwent debridement by wound clinic on 04/30/18. Consult wound nurse for local wound care (3) Type 2 diabetes mellitus Assessment & Plan: Last A1C 01/31/18 7.3. Repeat A1C in a.m. Place on Basaglar 9 units SQ q12 hour and novolog sliding scale At home she has been taking Basaglar 26units daily, but notes blood sugars have been on low side She is prescribed novolog 4 units with meals, but has not been taking this (4) Chronic a-fib Assessment & Plan: Continue metoprolol for rate and rhythm control Warfarin 2.5mg Tu//Sat and 5mg all other days. Last PT/INR was 1.7 on 04/27/18. (5) CKD (chronic kidney disease), stage IV Assessment & Plan: renal function at baseline monitor renal function avoid nephrotoxic agents (6) HTN (hypertension) Assessment & Plan: blood pressure high on admission. On Lasix, Metoprolol and Losartan. Monitor and adjust accordingly (7) CAD (coronary artery disease) Assessment & Plan: continue ASA, ARB, BB therapy. Has allergy to statin. No active chest pain or cardiac symptoms. Follows Dr. Harper on outpatient basis. (8) Asthma, moderate Assessment & Plan: controlled with symbicort and albuterol prn. (9) GERD (gastroesophageal reflux disease) Assessment & Plan: Continue PPI. recently had EGD on 04/18/[address] Bosch secondary to dysphagia (10) Esophageal dysmotility Assessment & Plan: recently had EGD on 04/18/[address] Bosch secondary to dysphagia s/p dilation. (11) Anemia of chronic disease Assessment & Plan: H/H Stable at 10.2 and 31.9. No s/sx of bleeding (12) Hyperparathyroidism Assessment & Plan: continue calcitriol (13) Obesity (BMI 30-39.9) Assessment & Plan: encourage lifestyle modifications Advanced Directives Existing Living Will: Yes Existing Power of Ux Designer: Yes (Luis Christensen, son) Resuscitation Status Full Code Discussed in detail with patient and son at bedside. Son is POA and she does have a living will. She wishes to be Full Code VTE Prophylaxis Will order VTE Prophylaxis: Yes (Patient on warfarin therapy) Note Dr. Lang Attending physician Addendum I have seen and examined the patient with our medical team's physician instructional assistant and agree with the assessment and plan as above and would like to comment that patient's left hip wounds are not very large in size and however given history of Pseudomonas and multiple drug allergies there appears to be a number of limitations on antibiotic choices. Patient received Cefepime in the ED x 1 dose. Will continue as daily dose for now unless infectious disease consult has alternative recommendations. Also awaiting blood culture results which were drawn in the ED and this may help guide the antibiotic therapy. Physical Exam General: no acute distress Heart rate: rate is normal Lungs: CTABL, no wheezing Abdomen: truncal obesity, soft, nontender, bowel sounds present Left hip has areas of 2 ulcers Extremities: moves extremities
[2018-05-04 17:00] VITALS: BP 191/72; PULSE 64; TEMP 36.3; O2SAT 99
[2018-05-04] MEDS: INSULIN ASPART 100 UNITS/ML 3 ML PEN SC SCH ×2 (17:53→19:46)
[2018-05-04] MEDS: FUROSEMIDE 20 MG TAB PO SCH (17:54)
[2018-05-04] MEDS ORDERED: ALUMINUM/MAGNESIUM SUSP 30 ML UDC PO STA (19:17)
[2018-05-04] MEDS ORDERED: ALUMINUM/MAGNESIUM SUSP 30 ML UDC PO PRN (19:30)
[2018-05-04] MEDS: WARFARIN SOD 5 MG TAB PO SCH (19:39)
[2018-05-04] MEDS: ASPIRIN 81 MG ECTAB PO SCH (19:40)
[2018-05-04] MEDS: DOCUSATE SODIUM 100 MG CAP PO SCH (19:41)
[2018-05-04] MEDS: BUDESONIDE/FORMOTEROL FUMARATE 160/4.5 60 PUFFS/INHALER INH SCH (19:43)
[2018-05-04] MEDS: FLUTICASONE PROPIONATE NA SPR 16 GM BTL SCH (19:44)
[2018-05-04] MEDS: METOPROLOL TARTRATE 25 MG TAB PO SCH (19:53)
[2018-05-04] MEDS: HYDROCORTISONE ACETATE 25 MG SUPP PR SCH (19:53)
[2018-05-04] MEDS: INSULIN GLARGINE SOLOSTAR 100 UNITS/ML 3 ML PEN SC SCH (19:55)
[2018-05-04] MEDS: ALUMINUM/MAGNESIUM/SIMETH (MAALOX MAX) 30 ML UDC PO PRN (21:31)
[2018-05-04] MEDS: ACETAMINOPHEN 325 MG TAB PO PRN (21:32)
[2018-05-05] VITALS (8 sets, daily range): BP systolic 129–191; BP diastolic 60–82; PULSE 57–87; TEMP 36.6–36.9; O2SAT 93–97
[2018-05-05] MEDS ORDERED: CLONIDINE HCL 0.1 MG TAB PO PRN (01:00)
[2018-05-05] MEDS ORDERED: HydrALAZINE HCL 20 MG/ML VIAL IV. PRN (01:15)
[2018-05-05] MEDS: ALBUTEROL HFA 8 GM INHALER INH PRN ×2 (04:28→21:50)
[2018-05-05 06:08] LABS: HEMATOCRIT 30.3 % (37-47); HEMOGLOBIN 9.8 g/dL (12.0-16.0); MEAN CELL VOLUME 85.4 fL (80-100); MEAN CORPUSCULAR HEMOGLOBIN 27.6 pg (25-34); MEAN CORPUSCULAR HGB CONC 32.3 g/dl (32-36); PLATELET COUNT 207 K/uL (130-400); RED CELL DISTRIBUTION WIDTH CV 16.1 % (11.5-14.5); WHITE BLOOD COUNT 6.18 K/uL (4.8-10.8)
[2018-05-05 06:39] LABS: CALCIUM 9.7 mg/dl (8.5-10.1); CREATININE 1.61 mg/dl (0.60-1.20); POTASSIUM 3.9 mmol/L (3.5-5.1)
[2018-05-05 07:17] LABS: HEMOGLOBIN A1C 6.8 % (4.5-5.6)
[2018-05-05] MEDS: HYDROCORTISONE ACETATE 25 MG SUPP PR SCH ×2 (08:00→20:53)
[2018-05-05] MEDS: BUDESONIDE/FORMOTEROL FUMARATE 160/4.5 60 PUFFS/INHALER INH SCH ×2 (08:16→20:45)
[2018-05-05] MEDS: INSULIN ASPART 100 UNITS/ML 3 ML PEN SC SCH ×4 (08:29→20:50)
[2018-05-05] MEDS: FLUTICASONE PROPIONATE NA SPR 16 GM BTL SCH ×2 (08:30→20:46)
[2018-05-05] MEDS: INSULIN GLARGINE SOLOSTAR 100 UNITS/ML 3 ML PEN SC SCH (08:30)
[2018-05-05] MEDS: FUROSEMIDE 20 MG TAB PO SCH ×2 (08:32→17:51)
[2018-05-05] MEDS: MONTELUKAST SOD 10 MG TAB PO SCH (08:33)
[2018-05-05] MEDS: CALCITRIOL 0.5 MCG CAP PO SCH (08:33)
[2018-05-05] MEDS: LOSARTAN POTASSIUM 25 MG TAB PO SCH (08:34)
[2018-05-05] MEDS: METOPROLOL TARTRATE 25 MG TAB PO SCH ×2 (08:35→20:48)
[2018-05-05] MEDS: PANTOprazole SOD 40 MG TAB PO SCH (08:35)
[2018-05-05] MEDS: DOCUSATE SODIUM 100 MG CAP PO SCH ×2 (08:35→20:47)
--- NOTE | 2018-05-05 08:35 | Progress Note ---
Progress Note Date of Service May 05, 2018. Progress Note ID Consult Dictated #[id number] A/P: 1. Left hip wound - pseudomonas -Continue cefepime x 14 days -Will follow in wound center post d/c, thank you
--- NOTE | 2018-05-05 08:47 | INFECT. DISEASE CONSULTATION ---
DATE OF CONSULTATION: 05/05/2018 HISTORY OF PRESENT ILLNESS: This is an 88-year-old female who was recently seen in the wound center. She has a left hip wound, which is growing pseudomonas. She has multiple allergies and the decision was made to place the patient on IV cefepime; however, she does not feel that she would be able to do this at home and she does not have transportation to come to [facility] for additional antibiotics. The decision was made to admit the patient and then transfer her to nursing home facility to complete a 14-day course of cefepime. She was started on this last night. She believes that the pain in her hip is improved. She denies any fevers or chills. Her only complaint is some shortness of breath and wheezing from underlying asthma. She is asking for nebulizer treatments. She denies any chest pain, cough. She denies any nausea, vomiting, diarrhea or abdominal pain. She is tolerating antibiotics well. She is eating breakfast on my examination. REVIEW OF SYSTEMS: Her remaining review of systems is reviewed and unremarkable. PAST MEDICAL HISTORY: Significant for anemia, asthma, coronary artery disease, AFib, chronic kidney disease, CHF, esophageal dysmotility with dilation, GERD, hypertension, hyperparathyroidism, diabetes, obesity, peripheral vascular disease, venous stasis ulcers on the left hip wound. PAST SURGICAL HISTORY: Significant for cholecystectomy, coronary artery stent, EGD, hysterectomy, ganglion cyst removal. FAMILY HISTORY: Noncontributory. SOCIAL HISTORY: Negative for tobacco use, alcohol use or drug use. She lives alone. ALLERGIES: SHE HAS MULTIPLE ALLERGIES INCLUDING LISINOPRIL, GEMFIBROZIL, DEXLANSOPRAZOLE, CODEINE, SULFA, NSAIDS, CHLORPROPAMIDE, QUINOLONES, PENICILLIN, MORPHINE, METFORMIN, FLUVASTATIN, CLOFIBRATE. CURRENT MEDICATIONS: Coumadin, cefepime, calcitriol, Cozaar, Singulair, Protonix, hydralazine, insulin, aspirin, Symbicort, Colace, Flonase, Lopressor, Maalox, Lasix, Ventolin, Tylenol. PHYSICAL EXAMINATION: VITAL SIGNS: She is afebrile, pulse 69, respiratory rate 18, blood pressure 146/78, oxygen saturation is 96% on room air. GENERAL: She is awake, alert and oriented x3. She is in no acute distress. HEENT: Mucous membranes are moist. Extraocular muscles are intact. HEART: Regular. LUNGS: Clear. ABDOMEN: Soft. There is no edema. LABORATORY STUDIES: CBC: White blood cell count 6.1, hemoglobin 9.8, platelets 207. Chemistry panel: Sodium 135, potassium 3.9, chloride 99, bicarbonate 28, BUN 38, creatinine 1.6, glucose 128. Blood cultures are pending. Previous wound culture is growing pseudomonas. ASSESSMENT AND PLAN: Infected left hip wound with pseudomonas. She will need 14 days of IV cefepime and likely transition to SNF to complete antibiotic course. Thank you for this consultation. She can follow with ID in the wound care center post discharge. GENARO
[2018-05-05] MEDS ORDERED: CEFEPIME IV 2,000 MG in DEXTROSE 5% 100ML 100 ML IV SCH (12:00)
[2018-05-05] MEDS ORDERED: ALBUTEROL 0.5% NEB SOLN 2.5 MG/0.5 ML VIAL INH PRN (13:00)
[2018-05-05] MEDS: CEFEPIME IV 2,000 MG in SYRINGE 7.5 ML IV SCH (13:01)
[2018-05-05] MEDS ORDERED: WARFARIN SOD 2.5 MG TAB PO SCH (16:00)
--- NOTE | 2018-05-05 16:28 | Progress Note ---
Progress Note Date of Service May 05, 2018. Progress Note Subjective: Patient reported feeling shortness of breath yesterday but feels better today. Patient reports of issues in the past with swallowing but denies recent choking. Patient denies chest pain or abdominal pain Physical Exam General Appearance: no apparent distress Head: normocephalic, atraumatic Eyes: normal inspection, sclerae normal ENT: normal ENT inspection, hearing grossly normal Neck: supple, no adenopathy, no JVD Respiratory/Chest: chest non-tender, lungs clear, no accessory muscle use Cardiovascular: no murmur, irregularly irregular Abdomen/GI: normal bowel sounds, non tender, soft, no organomegaly, obesity Back: normal inspection, no CVA tenderness, no muscle spasm, normal range of motion Extremities/Musculoskelatal: moves extremities Neurologic/Psych: alert, normal mood/affect, oriented x 3 Skin: left lateral superficial hip wound x 2, erythematous base with minimal slough on periphery, no drainage, approx 1cm x 1cm Assessment and Plan Pseudomonas aeruginosa infection / Stage II pressure ulcer of left hip -As per Infectious Disease consult patient will need 14 days of IV cefepime -wound care Type 2 diabetes mellitus -HbA1C 6.8 -Blood sugars appear well controlled, Will have on Lantus 9unit daily and sliding scale aspart Chronic a-fib -Continue metoprolol for rate and rhythm control -Warfarin 2.5mg //Sat and 5mg all other days -INR at goal between 2 to 3 CAD (coronary artery disease) continue ASA, ARB, BB therapy. Has allergy to statin. HTN (hypertension) On Lasix, Metoprolol and Losartan. CKD (chronic kidney disease) stage IV monitor renal function avoid nephrotoxic agents Anemia of chronic disease Asthma symbicort albuterol / nebulizer prn. GERD (gastroesophageal reflux disease) History of Esophageal dysmotility with EGD on 04/18/[address] Bosch and s/ p dilation -continue PPI Hyperparathyroidism Assessment & Plan: continue calcitriol Obesity (BMI 30-39.9) encourage activity PT/OT Disposition: inpatient for IV antibiotics for infection
[2018-05-05] MEDS: ASPIRIN 81 MG ECTAB PO SCH (20:49)
[2018-05-05] MEDS: ACETAMINOPHEN 325 MG TAB PO PRN (21:50)
[2018-05-05] MEDS ORDERED: COUGH DROP (SUGAR FREE) LOZ 24 LOZ/1 BOX LOZ PRN (22:15)
[2018-05-05] MEDS ORDERED: COUGH DROP (SUGAR FREE) LOZ 24 LOZ/1 BOX LOZ ONE (22:15)
[2018-05-06 07:49] VITALS: BP 156/72; PULSE 67; TEMP 36.8; O2SAT 94
[2018-05-06] MEDS: BUDESONIDE/FORMOTEROL FUMARATE 160/4.5 60 PUFFS/INHALER INH SCH ×2 (08:10→20:48)
[2018-05-06] MEDS: FLUTICASONE PROPIONATE NA SPR 16 GM BTL SCH ×2 (08:10→20:48)
[2018-05-06] MEDS: CALCITRIOL 0.5 MCG CAP PO SCH (08:11)
[2018-05-06] MEDS: PANTOprazole SOD 40 MG TAB PO SCH (08:11)
[2018-05-06] MEDS: HYDROCORTISONE ACETATE 25 MG SUPP PR SCH ×2 (08:11→20:50)
[2018-05-06] MEDS: DOCUSATE SODIUM 100 MG CAP PO SCH ×2 (08:12→20:50)
[2018-05-06] MEDS: MONTELUKAST SOD 10 MG TAB PO SCH (08:12)
[2018-05-06] MEDS: FUROSEMIDE 20 MG TAB PO SCH ×2 (08:12→17:42)
[2018-05-06] MEDS: LOSARTAN POTASSIUM 25 MG TAB PO SCH (08:13)
[2018-05-06] MEDS: METOPROLOL TARTRATE 25 MG TAB PO SCH ×2 (08:13→20:51)
[2018-05-06] MEDS: INSULIN ASPART 100 UNITS/ML 3 ML PEN SC SCH ×4 (08:21→21:15)
[2018-05-06] MEDS: INSULIN GLARGINE SOLOSTAR 100 UNITS/ML 3 ML PEN SC SCH (08:22)
--- NOTE | 2018-05-06 10:01 | Progress Note ---
Progress Note Date of Service May 06, 2018. Progress Note Subjective: Patient denies shortness of breath today Patient denies choking. She reports that she is aware that she is to eat meals slowly and in small portions Patient denies chest pain or abdominal pain Physical Exam General Appearance: no apparent distress Head: normocephalic, atraumatic Eyes: normal inspection, sclerae normal ENT: normal ENT inspection, hearing grossly normal Neck: supple, no adenopathy, no JVD Respiratory/Chest: chest non-tender, lungs clear, no accessory muscle use Cardiovascular: no murmur, irregularly irregular Abdomen/GI: normal bowel sounds, non tender, soft, no organomegaly, obesity Back: normal inspection, no CVA tenderness, no muscle spasm, normal range of motion Extremities/Musculoskelatal: moves extremities Neurologic/Psych: alert, normal mood/affect, oriented x 3 Skin: left lateral superficial hip wound x 2, erythematous base with minimal slough on periphery, no drainage, approx 1cm x 1cm Assessment and Plan Pseudomonas aeruginosa infection / Stage II pressure ulcer of left hip -As per Infectious Disease consult patient will need 14 days of IV cefepime -wound care Type 2 diabetes mellitus -HbA1C 6.8 -Blood sugars appear well controlled, -continue Lantus 9unit daily and sliding scale aspart Chronic a-fib -Continue metoprolol for rate and rhythm control -Warfarin 2.5mg //Mon and 5mg all other days -INR at goal between 2 to 3 CAD (coronary artery disease) continue ASA, ARB, BB therapy. Has allergy to statin. HTN (hypertension) On Lasix, Metoprolol and Losartan. CKD (chronic kidney disease) stage IV monitor renal function avoid nephrotoxic agents Anemia of chronic disease Asthma symbicort albuterol / nebulizer prn. GERD (gastroesophageal reflux disease) History of Esophageal dysmotility with EGD on 04/18/[address] Bosch and s/ p dilation -continue PPI Hyperparathyroidism continue calcitriol Obesity (BMI 30-39.9) encourage activity PT/OT As per Case management note on 05/05/18 "Case Management Note- Received consult for discharge planning. Per MD, patient is going to need 2 weeks total of IV abx. Met with patient at bedside. Patient states that she lives alone and her son is out of town for about a month. Discussed different options for IV abx. Patient would not have anyone to learn at home to assist with administration. She drives short distances only , so will not be able to come to [facility] every day. Patient agrees to a SNF and chose [facility]. Coagulator to fax referral. Patient declines to have her son notified at this time. Asked MD for admission order. Patient will need 3 midnight stay (until 05/08). " Disposition: inpatient for IV antibiotics for infection
[2018-05-06] MEDS: CEFEPIME IV 2,000 MG in SYRINGE 7.5 ML IV SCH (12:47)
[2018-05-06 15:38] VITALS: BP 171/70; PULSE 69; TEMP 36.9; O2SAT 98
[2018-05-06] MEDS: WARFARIN SOD 5 MG TAB PO SCH (15:54)
[2018-05-06] MEDS: ALBUTEROL HFA 8 GM INHALER INH PRN (15:54)
[2018-05-06] MEDS: ASPIRIN 81 MG ECTAB PO SCH (20:48)
[2018-05-06 21:07] VITALS: BP 167/76; PULSE 80
[2018-05-06 22:44] VITALS: BP 191/79; PULSE 71; TEMP 36.4; O2SAT 92
[2018-05-07 05:00] VITALS: BP 152/64
[2018-05-07 05:58] LABS: BASO % 0.9 %; BASO ABS # 0.06 K/uL (0-0.2); EOS ABS # 0.13 K/uL (0-0.5); HEMATOCRIT 30.7 % (37-47); HEMOGLOBIN 9.7 g/dL (12.0-16.0); IG# 0.01 K/uL (0.00-0.02); LYMPH % 24.4 %; LYMPH ABS # 1.61 K/uL (1.2-3.4); MEAN CELL VOLUME 86.2 fL (80-100); MEAN CORPUSCULAR HEMOGLOBIN 27.2 pg (25-34); MEAN CORPUSCULAR HGB CONC 31.6 g/dl (32-36); MEAN PLATELET VOLUME 9.7 fL (7.4-10.4); MONO % 7.1 %; MONO ABS # 0.47 K/uL (0.11-0.59); NEUT % 65.4 %; NEUT ABS # 4.31 K/uL (1.4-6.5); PLATELET COUNT 184 K/uL (130-400); RED CELL DISTRIBUTION WIDTH CV 16.2 % (11.5-14.5); RED CELL DISTRIBUTION WIDTH SD 51.5 fL (36.4-46.3); WHITE BLOOD COUNT 6.59 K/uL (4.8-10.8)
[2018-05-07 06:11] LABS: INR 1.8 (0.9-1.1)
[2018-05-07 06:36] LABS: ALBUMIN 2.6 gm/dl (3.4-5.0); CALCIUM 9.6 mg/dl (8.5-10.1); CREATININE 1.88 mg/dl (0.60-1.20); POTASSIUM 4.2 mmol/L (3.5-5.1)
[2018-05-07] MEDS ORDERED: WARFARIN SOD 1 MG TAB PO ONE (07:15)
[2018-05-07] MEDS: MONTELUKAST SOD 10 MG TAB PO SCH (07:39)
[2018-05-07] MEDS: FUROSEMIDE 20 MG TAB PO SCH ×2 (07:39→16:44)
[2018-05-07] MEDS: CALCITRIOL 0.5 MCG CAP PO SCH (07:39)
[2018-05-07] MEDS: DOCUSATE SODIUM 100 MG CAP PO SCH ×2 (07:39→20:41)
[2018-05-07 07:40] VITALS: BP 159/77; PULSE 59; TEMP 36.8; O2SAT 95
[2018-05-07] MEDS: HYDROCORTISONE ACETATE 25 MG SUPP PR SCH ×2 (07:40→11:46)
[2018-05-07] MEDS: LOSARTAN POTASSIUM 25 MG TAB PO SCH (07:40)
[2018-05-07] MEDS: FLUTICASONE PROPIONATE NA SPR 16 GM BTL SCH ×2 (07:40→20:40)
[2018-05-07] MEDS: BUDESONIDE/FORMOTEROL FUMARATE 160/4.5 60 PUFFS/INHALER INH SCH ×2 (07:40→20:40)
[2018-05-07] MEDS: METOPROLOL TARTRATE 25 MG TAB PO SCH ×2 (07:41→20:41)
[2018-05-07] MEDS: PANTOprazole SOD 40 MG TAB PO SCH (07:41)
[2018-05-07] MEDS ORDERED: AMLODIPINE BESYLATE 5 MG TAB PO STA (08:12)
[2018-05-07] MEDS: INSULIN GLARGINE SOLOSTAR 100 UNITS/ML 3 ML PEN SC SCH (08:16)
[2018-05-07] MEDS: INSULIN ASPART 100 UNITS/ML 3 ML PEN SC SCH ×4 (08:17→20:45)
[2018-05-07 10:52] VITALS: BP 167/75; PULSE 73; O2SAT 97
--- NOTE | 2018-05-07 11:00 | Progress Note ---
Internal Med Progress Note Date of Service: May 07, 2018. Provider Documentation: Subjective: Patient denies shortness of breath today Patient denies choking. She reports that she is aware that she is to eat meals slowly and in small portions Patient denies chest pain or abdominal pain Patient consented to placement of midline. Midline was placed Physical Exam General Appearance: no apparent distress Head: normocephalic, atraumatic Eyes: normal inspection, sclerae normal ENT: normal ENT inspection, hearing grossly normal Neck: supple, no adenopathy, no JVD Respiratory/Chest: chest non-tender, lungs clear, no accessory muscle use Cardiovascular: no murmur, irregularly irregular Abdomen/GI: normal bowel sounds, non tender, soft, no organomegaly, obesity Back: normal inspection, no CVA tenderness, no muscle spasm, normal range of motion Extremities/Musculoskelatal: moves extremities Neurologic/Psych: alert, normal mood/affect, oriented x 3 Skin: left lateral superficial hip wound x 2, erythematous base with minimal slough on periphery, no drainage, approx 1cm x 1cm ASSESSMENT & PLAN: This is a 88 year old F who has a significant PMH of insulin dependent T2DM, HTN , 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 She was seen in outpatient wound clinic on 04/30/18 in which she underwent debridement of left hip wound. She had recent wound culture done on 04/23/18 which grew pansensitive Pseudomonas. Due to patient's multiple drug allergies, failed outpatient Keflex therapy and it was recommended she begin IV cefepime [address] Zuniga. Patient lives alone at home and unable to administer antibiotics therefore she was referred to ED for admission for IV antibiotic therapy. Pseudomonas aeruginosa infection / Stage II pressure ulcer of left hip -As per Infectious Disease consult patient will need 14 days of IV cefepime (Cefepime was started on 05/04/18 on admission with last day of on 05/17/18) currently the cefepime dosage is 2 grams IV daily -Patient had midline placed on 05/07/18 -wound care Type 2 diabetes mellitus -HbA1C 6.8 -Blood sugars appear well controlled -at home patient takes Glargine 28 units daily -appears to be doing well on reduced insulin so far with Glargine 9 units daily and sliding scale aspart, continue Chronic a-fib -Continue metoprolol for rate and rhythm control -Warfarin 2.5mg //Mon and 5mg all other days -INR goal is between 2 to 3 -INR was 1.8 and additional 1 mg coumadin and to received usual scheduled dose of warfarin later today CAD (coronary artery disease) -continue ASA, ARB, BB therapy. Has allergy to statin. HTN (hypertension) -On Lasix, Metoprolol and Losartan -Amlodipine added today for hypertension and for daily CKD (chronic kidney disease) stage IV monitor renal function avoid nephrotoxic agents Anemia of chronic disease Asthma symbicort albuterol / nebulizer prn. GERD (gastroesophageal reflux disease) History of Esophageal dysmotility with EGD on 04/18/[address] Bosch and s/ p dilation -continue PPI Hyperparathyroidism continue calcitriol Obesity (BMI 30-39.9) encourage activity PT/OT requested OT evaluation on 05/06/18 that patient would benefit from short-term rehab at [facility] upon discharge Disposition: keep as inpatient for further IV antibiotics. Case Management is applying for placement to [facility] Vital Signs: Date Time Temp Pulse Resp B/P (MAP) Pulse Ox O2 Delivery O2 Flow Rate FiO2 05/07/18 08:10 Room Air 05/07/18 07:40 36.8 59 16 159/77 (104) 95 Room Air 05/07/18 05:00 152/64 (93) 05/06/18 22:44 36.4 71 18 191/79 (116) 92 Room Air 05/06/18 22:00 Room Air 05/06/18 21:07 80 167/76 (106) 05/06/18 15:38 36.9 69 18 171/70 (103) 98 Room Air Lab Results: Results Past 24 Hours Test 05/06/18 16:45 05/06/18 20:20 05/07/18 05:44 05/07/18 07:59 Range/Units Bedside Glucose 179 263 109 70-90 mg/dl White Blood Count 6.59 4.8-10.8 K/uL Red Blood Count 3.56 4.2-5.4 M/uL Hemoglobin 9.7 12.0-16.0 g/dL Hematocrit 30.7 37-47 % Mean Corpuscular Volume 86.2 80-100 fL Mean Corpuscular Hemoglobin 27.2 25-34 pg Mean Corpuscular Hemoglobin Concent 31.6 32-36 g/dl Platelet Count 184 130-400 K/uL Mean Platelet Volume 9.7 7.4-10.4 fL Neutrophils (%) (Auto) 65.4 % Lymphocytes (%) (Auto) 24.4 % Monocytes (%) (Auto) 7.1 % Eosinophils (%) (Auto) 2.0 % Basophils (%) (Auto) 0.9 % Neutrophils # (Auto) 4.31 1.4-6.5 K/uL Lymphocytes # (Auto) 1.61 1.2-3.4 K/uL Monocytes # (Auto) 0.47 0.11-0.59 K/uL Eosinophils # (Auto) 0.13 0-0.5 K/uL Basophils # (Auto) 0.06 0-0.2 K/uL RDW Standard Deviation 51.5 36.4-46.3 fL RDW Coefficient of Variation 16.2 11.5-14.5 % Immature Granulocyte % (Auto) 0.2 % Immature Granulocyte # (Auto) 0.01 0.00-0.02 K/uL Prothrombin Time 18.6 9.0-12.0 SECONDS Prothromb Time International Ratio 1.8 0.9-1.1 Sodium Level 137 136-145 mmol/L Potassium Level 4.2 3.5-5.1 mmol/L Chloride Level 101 98-107 mmol/L Carbon Dioxide Level 27 21-32 mmol/L Anion Gap 9.0 3-11 mmol/L Blood Urea Nitrogen 32 7-18 mg/dl Creatinine 1.88 0.60-1.20 mg/dl Est Creatinine Clear Calc Drug Dose 24.3 ml/min Estimated GFR () 27.3 Estimated GFR (Non- 23.6 BUN/Creatinine Ratio 17.0 10-20 Random Glucose 132 70-99 mg/dl Calcium Level 9.6 8.5-10.1 mg/dl Phosphorus Level 3.0 2.5-4.9 mg/dl Albumin 2.6 3.4-5.0 gm/dl Test 05/07/18 11:42 Range/Units Bedside Glucose 166 70-90 mg/dl
[2018-05-07] MEDS ORDERED: POLYETHYLENE (MIRALAX) 17 GM PACK PO PRN (12:00)
[2018-05-07] MEDS ORDERED: NURSING VERBAL MED ORDER ONE (12:00)
[2018-05-07] MEDS: CEFEPIME IV 2,000 MG in SYRINGE 7.5 ML IV SCH (12:39)
[2018-05-07 16:10] VITALS: BP 172/69; PULSE 82; TEMP 36.5; O2SAT 98
[2018-05-07] MEDS: WARFARIN SOD 5 MG TAB PO SCH (16:44)
[2018-05-07] MEDS: ALUMINUM/MAGNESIUM/SIMETH (MAALOX MAX) 30 ML UDC PO PRN (20:39)
[2018-05-07] MEDS: ASPIRIN 81 MG ECTAB PO SCH (20:42)
[2018-05-07] MEDS ORDERED: ALBUT/IPRATROP 3MG/0.5MG NEB 3 ML VIAL INH PRN (21:15)
[2018-05-07 21:31] VITALS: PULSE 79; O2SAT 95
[2018-05-07 23:22] VITALS: BP 177/77; PULSE 68; TEMP 36.5; O2SAT 95
[2018-05-08 06:09] LABS: BASO % 0.8 %; BASO ABS # 0.06 K/uL (0-0.2); EOS % 2.2 %; EOS ABS # 0.16 K/uL (0-0.5); HEMATOCRIT 29.7 % (37-47); HEMOGLOBIN 9.8 g/dL (12.0-16.0); IG# 0.02 K/uL (0.00-0.02); MEAN CELL VOLUME 86.3 fL (80-100); MEAN CORPUSCULAR HEMOGLOBIN 28.5 pg (25-34); MEAN PLATELET VOLUME 10.2 fL (7.4-10.4); MONO % 10.8 %; MONO ABS # 0.78 K/uL (0.11-0.59); NEUT % 67.9 %; NEUT ABS # 4.91 K/uL (1.4-6.5); PLATELET COUNT 189 K/uL (130-400); RED CELL DISTRIBUTION WIDTH CV 16.3 % (11.5-14.5); RED CELL DISTRIBUTION WIDTH SD 51.8 fL (36.4-46.3); WHITE BLOOD COUNT 7.23 K/uL (4.8-10.8)
[2018-05-08 06:30] LABS: INR 1.7 (0.9-1.1)
[2018-05-08 06:43] LABS: ALBUMIN 2.6 gm/dl (3.4-5.0); CALCIUM 9.5 mg/dl (8.5-10.1); CREATININE 1.67 mg/dl (0.60-1.20); PHOSPHORUS 2.8 mg/dl (2.5-4.9)
[2018-05-08 07:46] VITALS: BP 161/72; PULSE 63; TEMP 36.4; O2SAT 96
[2018-05-08] MEDS: LOSARTAN POTASSIUM 25 MG TAB PO SCH (08:27)
[2018-05-08] MEDS: PANTOprazole SOD 40 MG TAB PO SCH (08:28)
[2018-05-08] MEDS: METOPROLOL TARTRATE 25 MG TAB PO SCH (08:28)
[2018-05-08] MEDS: DOCUSATE SODIUM 100 MG CAP PO SCH (08:28)
[2018-05-08] MEDS: FLUTICASONE PROPIONATE NA SPR 16 GM BTL SCH (08:29)
[2018-05-08] MEDS: CALCITRIOL 0.5 MCG CAP PO SCH (08:29)
[2018-05-08] MEDS: BUDESONIDE/FORMOTEROL FUMARATE 160/4.5 60 PUFFS/INHALER INH SCH (08:29)
[2018-05-08] MEDS: FUROSEMIDE 20 MG TAB PO SCH (08:30)
[2018-05-08] MEDS: MONTELUKAST SOD 10 MG TAB PO SCH (08:30)
[2018-05-08] MEDS: INSULIN GLARGINE SOLOSTAR 100 UNITS/ML 3 ML PEN SC SCH (08:34)
[2018-05-08] MEDS: INSULIN ASPART 100 UNITS/ML 3 ML PEN SC SCH ×2 (08:37→12:25)
[2018-05-08] MEDS ORDERED: AMLODIPINE BESYLATE 5 MG TAB PO SCH (09:00)
[2018-05-08 11:17] VITALS: BP 161/72; PULSE 63; TEMP 36.4; O2SAT 96
[2018-05-08] MEDS: CEFEPIME IV 2,000 MG in SYRINGE 7.5 ML IV SCH (12:27)
--- NOTE | 2018-05-08 14:43 | Progress Note ---
Subjective Date of Service: May 08, 2018. Subjective Pt evaluation today including: conversation w/ patient, physical exam, lab review, review of studies, review of inpatient medication list Saw/examined the patient in room 411 She's c/o dysphagia issues - states she's had esophageal dilatations in the past Denies any other symptoms at this time Problem List Medical Problems: (1) Failure of outpatient treatment Status: Acute (2) Pseudomonas aeruginosa infection Status: Acute (3) Shortness of breath Status: Acute (4) Wound of skin Status: Acute Review of Systems Constitutional: No fever, No chills ENT: + trouble swallowing Respiratory: No cough, No sputum, No shortness of breath Cardiac: No chest pain, No edema, No palpitations Medications Current Inpatient Medications Medications (Trade) Dose Ordered Sig/Amanda Route Start Time Stop Time Status Last Admin Dose Admin Acetaminophen (Tylenol Tab) 650 mg Q4H PRN PO 05/04/18 14:15 06/03/18 14:14 05/05/18 21:50 650 MG Glucose (Glucose 40% Gel) 15-30 GRAMS 15 GRAMS... UD PRN PO 05/04/18 14:15 06/03/18 14:14 Glucose (Glucose Chew Tab) 4-8 Tablets 4 Tabl... UD PRN PO 05/04/18 14:15 06/03/18 14:14 Dextrose (Dextrose 50% 50ML Syringe) 25-50ML 25ML FOR ... UD PRN IV 05/04/18 14:15 06/03/18 14:14 Glucagon (Glucagon Inj) 1 mg UD PRN SQ 05/04/18 14:15 06/03/18 14:14 Carbohydrates (Carbohydrates For Hypoglycemia) 15-30 GRAMS 15 grams if BSG 54-69... UD PRN PO 05/04/18 14:15 06/03/18 14:14 Miscellaneous (Iv Fluids Completed) 1 ea PRN PRN N/A 05/04/18 14:30 05/04/19 14:29 Insulin Aspart (novoLOG ASPART) SLIDING SCALE If C... ACHS SC 05/04/18 16:00 06/03/18 15:59 05/08/18 08:37 6 UNITS Albuterol (Ventolin Hfa Inhaler) 2 puffs Q4 PRN INH 05/04/18 14:45 06/03/18 14:44 05/06/18 15:54 2 PUFFS Aspirin (Ecotrin Tab) 81 mg QPM PO 05/04/18 21:00 06/03/18 20:59 05/07/18 20:42 81 MG Budesonide/ Formoterol Fumarate (Symbicort 160/ 4.5 Inh) 2 puffs BID INH 05/04/18 20:00 06/03/18 20:59 05/08/18 08:29 2 PUFFS Calcitriol (Rocaltrol Cap) 0.5 mcg DAILY PO 05/05/18 08:00 06/04/18 08:59 05/08/18 08:29 0.5 MCG Docusate Sodium (coLACE CAP) 100 mg BID PO 05/04/18 20:00 06/03/18 20:59 05/08/18 08:28 100 MG Fluticasone Propionate (Flonase Nasal [place]) 1 sprays BID NA 05/04/18 20:00 06/03/18 20:59 05/08/18 08:29 1 SPRAYS Furosemide (Lasix Tab) 20 mg BID17 PO 05/04/18 17:00 06/03/18 16:59 05/08/18 08:30 20 MG Losartan Potassium (coZAAR TAB) 12.5 mg DAILY PO 05/05/18 08:00 06/04/18 08:59 05/08/18 08:27 12.5 MG Metoprolol Tartrate (Lopressor Tab) 12.5 mg BID PO 05/04/18 20:00 06/03/18 20:59 05/08/18 08:28 12.5 MG Montelukast Sodium (Singulair Tab) 10 mg QAM PO 05/05/18 08:00 06/04/18 08:59 05/08/18 08:30 10 MG Pantoprazole Sodium (Protonix Tab) 40 mg QAM PO 05/05/18 08:00 06/04/18 08:59 05/08/18 08:28 40 MG Warfarin Sodium (Coumadin Tab) 5 mg SuMoWeFr@1600 PO 05/04/18 18:30 06/03/18 15:59 05/07/18 16:44 5 MG Warfarin Sodium (Coumadin Tab) 2.5 mg TuThSa@1600 PO 05/05/18 16:00 06/04/18 15:59 05/05/18 16:50 2.5 MG Cefepime HCl 2000 mg/Syringe 20 ml @ 5 mls/min DAILY@1200 IV 05/05/18 12:00 05/14/18 11:59 05/08/18 12:27 5 MLS/MIN Al Hydrox/Mg Hydrox/Simethicone (Maalox Max Susp) 30 ml Q6H PRN PO 05/04/18 19:15 06/03/18 19:14 05/07/18 20:39 30 ML Al Hydroxide/Mg Hydroxide (Maalox Susp) 15 ml Q6H PRN PO 05/04/18 19:30 06/03/18 19:29 Insulin Glargine (Lantus Solostar Pen) 9 units DAILY SC 05/06/18 08:00 06/03/18 20:59 05/08/18 08:34 9 UNITS Menthol (Nice Tabitha) 1 tabitha PRN PRN TABITHA 05/05/18 22:15 06/04/18 22:14 Amlodipine Besylate (Norvasc Tab) 5 mg QAM PO 05/08/18 09:00 06/07/18 08:59 05/08/18 08:28 5 MG Polyethylene (Miralax Powder Packet) 17 gm DAILY PRN PO 05/07/18 12:00 06/06/18 11:59 05/07/18 12:38 17 GM Albuterol/ Ipratropium (Duoneb) 3 ml Q4R PRN INH 05/07/18 21:15 06/06/18 21:14 05/07/18 21:31 3 ML Heparin Sodium (Porcine) (Heparin 10 Unit/ ml 5 ml Flush) 5 ml PRN PRN FLUSH 05/08/18 00:30 06/07/18 00:29 05/08/18 05:50 5 ML Objective Vital Signs Date Time Temp Pulse Resp B/P (MAP) Pulse Ox O2 Delivery O2 Flow Rate FiO2 05/08/18 11:17 36.4 63 16 96 Room Air 05/08/18 08:58 Room Air 05/08/18 07:46 36.4 63 16 161/72 (101) 96 Room Air 05/07/18 23:22 36.5 68 20 177/77 (110) 95 Room Air 05/07/18 21:31 79 18 95 Room Air 05/07/18 17:15 Room Air 05/07/18 16:10 36.5 82 18 172/69 (103) 98 Room Air Physical Exam General Appearance: no apparent distress Respiratory/Chest: chest non-tender, lungs clear, normal breath sounds, no respiratory distress, no accessory muscle use Cardiovascular: regular rate, rhythm, no edema, no murmur Neurologic/Psychiatric: no motor/sensory deficits, alert, normal mood/affect Laboratory Results Last 24 Hours Test 05/07/18 16:43 05/07/18 20:36 05/08/18 05:49 05/08/18 07:57 Bedside Glucose 135 mg/dl 198 mg/dl 121 mg/dl White Blood Count 7.23 K/uL Red Blood Count 3.44 M/uL Hemoglobin 9.8 g/dL Hematocrit 29.7 % Mean Corpuscular Volume 86.3 fL Mean Corpuscular Hemoglobin 28.5 pg Mean Corpuscular Hemoglobin Concent 33.0 g/dl Platelet Count 189 K/uL Mean Platelet Volume 10.2 fL Neutrophils (%) (Auto) 67.9 % Lymphocytes (%) (Auto) 18.0 % Monocytes (%) (Auto) 10.8 % Eosinophils (%) (Auto) 2.2 % Basophils (%) (Auto) 0.8 % Neutrophils # (Auto) 4.91 K/uL Lymphocytes # (Auto) 1.30 K/uL Monocytes # (Auto) 0.78 K/uL Eosinophils # (Auto) 0.16 K/uL Basophils # (Auto) 0.06 K/uL RDW Standard Deviation 51.8 fL RDW Coefficient of Variation 16.3 % Immature Granulocyte % (Auto) 0.3 % Immature Granulocyte # (Auto) 0.02 K/uL Prothrombin Time 17.7 SECONDS Prothromb Time International Ratio 1.7 Sodium Level 135 mmol/L Potassium Level 4.0 mmol/L Chloride Level 99 mmol/L Carbon Dioxide Level 29 mmol/L Anion Gap 7.0 mmol/L Blood Urea Nitrogen 33 mg/dl Creatinine 1.67 mg/dl Est Creatinine Clear Calc Drug Dose 27.4 ml/min Estimated GFR () 31.6 Estimated GFR (Non- 27.2 BUN/Creatinine Ratio 19.8 Random Glucose 120 mg/dl Calcium Level 9.5 mg/dl Phosphorus Level 2.8 mg/dl Albumin 2.6 gm/dl Test 05/08/18 11:43 Bedside Glucose 130 mg/dl Assessment and Plan This is an 88 year old female with a past medical history of insulin dependent DM2, chronic atrial fibrillation on long-term anticoagulation, CKD stage 4, chronic diastolic CHF, CAD, PVD, anemia of chronic disease, hyperparathyroidism and obesity - presents with an infected L hip pressure wound Infected L Hip Wound Ulcerations - failed outpatient Keflex - multiple abx. allergies noted - pansensitive pseudomonas noted on cultures - Cefepime recommended as per ID x14 days - midline placed - plan for d/c to [facility] Insulin Dependent DM2 - Ha1c = 6.8% - lower dose of Lantus and insulin sliding scale - can monitor BSGs at [facility] and adjust accordingly Chronic A. Fib - continue b-abi - continue Coumadin with goal INR of 2-3 Chronic/Recurrent Dysphagia - outpatient GI follow-up, may need another esophageal dilatation CAD - continue aspirin, b-abi, ARB HTN - On Lasix, Metoprolol and Losartan - will increase Amlodipine for discharge CKD (chronic kidney disease) stage IV - monitor renal function - avoid nephrotoxic agents Anemia of chronic disease Asthma - continue Symbicort Hyperparathyroidism - continue calcitriol DVT ppx - Coumadin FULL CODE
[2018-05-08] MEDS ORDERED: NRV/10 PO (14:54)
[2018-05-08] MEDS ORDERED: INSU100I23 SC (14:54)
--- NOTE | 2018-05-08 15:00 | Discharge Instructions ---
Discharge Instructions Date of Service May 08, 2018. Admission Reason for Admission: Wound Infection Discharge Discharge Diagnosis / Problem: Infected Wound of Left hip Discharge Goals Goal(s): Decrease discomfort, Improve function, Diagnostic testing, Therapeutic intervention Activity Recommendations Activity Level: Up Ad Luz Therapies: Physical Therapy, Occupational Therapy, Speech Therapy Lifting Limitations: none Exercise/Sports Limitations: none Shower/Bathe: no limitations . Additional Information Patient informed of condition: Yes Advance Directives: No DNR: No Level of Care: Skilled Communicable Disease: No Prognosis: Stable Espinosa Catheter: No Instructions / Follow-Up Instructions / Follow-Up Please follow-up with primary care physician after stay at [facility] INR goal of 2-3 Cefepime 2 Grams for a total of 14 days, last dose on 05/17 outpatient GI evaluation for dysphagia, possible esophageal dilatation Current Hospital Diet Patient's current hospital diet: Diabetes Type 2 Diet, AHA Diet (Heart Healthy) Discharge Diet Recommended Diet: AHA Diet (Heart Healthy), Diabetes Type 2 Diet Pending Studies Studies pending at discharge: no Laboratory Results Hemoglobin A1c Test 05/05/18 05:47 Range/Units Estimated Average Glucose 148 mg/dl Hemoglobin A1c 6.8 H 4.5-5.6 % Medical Emergencies . Who to Call and When: Medical Emergencies: If at any time you feel your situation is an emergency, please call 911 immediately. . Non-Emergent Contact Non-Emergency issues call your: Primary Care Provider, Application Integrator . . "Provider Documentation" section prepared by Alba Morales. . Core Measure Problem Core Measures: None
[2018-05-08] MEDS ORDERED: CEFE2INJ2 IV (15:02)
--- NOTE | 2018-05-08 15:12 | Discharge Summary ---
Discharge Summary Date of Service May 08, 2018. Discharge Summary Admission Date: May 05, 2018 at 13:22 Discharge Date: May 08, 2018 Discharge Disposition: group home facility Principal Diagnosis: Infected L Hip Wound Ulceration Insulin Dependent DM2 CAD Medication Reconciliation New Medications: Cefepime Hcl (Cefepime) 2 Gm Inj 2 GM IV DAILY for 9 Days, GM Amlodipine Besylate (Amlodipine Besylate) 10 Mg Tab 10 MG PO DAILY for 30 Days, #30 TABS Changed Medications: Insulin Glargine (Basaglar Kwikpen) 100 Unit/Ml Inj 20 UNITS SC DAILY for 30 Days, #1 PEN (Changed from: 28 UNITS) Continued Medications: Albuterol Hfa (Ventolin Hfa) 200 Puffs/39005 Mcg Aers 2 PUFFS INH Q4 PRN for SOB/Wheezing, #1 INHALER Aspirin (Aspirin Chewable) 81 Mg Chew 81 MG PO QPM Azelastine Hcl-Fluticasone Pro (Dymista) 1 Spr Spr 2 SPRY JACOBO BID Budesonide/Formoterol Fumarate (Symbicort 160/4.5 Inhaler ) Aero 2 PUFFS INH BID, INHALER Calcitriol (Calcitriol) 0.5 Mcg Cap 0.5 MCG PO DAILY Docusate Sodium (Colace) 100 Mg Cap 1 CAP PO BID for 15 Days, #30 CAP Fluticasone Propionate (Nasal) (Flonase Allergy Relief) 50 Mcg/Act Spr BID Furosemide (Lasix) 20 Mg Tab 20 MG PO BID TAKE AT LEAST 4 HOURS APART Hydrocortisone 2.5% (Rectal) (Anusol-Hc 2.5%) 2.5 % Cre 1 APPLN TOP TID Losartan Potassium (Losartan Potassium) 25 Mg Tab 12.5 MG PO DAILY 1/2 OF A 25 MG TABLET Metoprolol Tartrate (Lopressor) (Lopressor) 25 Mg Tab 12.5 MG PO BID 1/2 OF A 25 MG TABLET TWICE DAILY Montelukast Sodium (Singulair) 10 Mg Tab 10 MG PO QAM Nystatin (Nystatin Cream) 90 Appln/30 Gm Cr 0 EXT PRN, #15 GM APPLY TO AFFECTED AREA BID Pantoprazole (Protonix) 40 Mg Tab 40 MG PO QAM Warfarin Sodium (Coumadin) 5 Mg Tab 2.5 TAB PO 3XWK HALF OF A 5 MG TABLET ON , , SAT Warfarin Sodium (Coumadin) 5 Mg Tab 5 MG PO 4XWK ONE 5 MG TABLET ON SUN, MON, WED, FRI Admission Information HPI (per Admitting provider): This is a 88 year old F who has a significant PMH of insulin dependent T2DM, HTN , 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 Son is present at bedside. She was last seen in outpatient wound clinic on 04/30/18 in which she underwent debridement of left hip wound. She had recent wound culture done on 04/23/18 which grew pansensitive Pseudomonas. Due to patient's multiple drug allergies, failed outpatient Keflex therapy and it was recommended she begin IV cefepime [address] Zuniga. Patient lives alone at home and unable to administer antibiotics therefore she was referred to ED for admission for IV antibiotic therapy. She elicits she has had a wound for 2-3 months, unsure how obtained wound, denies fall, has been following wound clinic for 4 weeks. Her next follow-up is on 05/14/18. Overall she complains of chronic shortness of breath secondary to asthma, occassional cough that is productive with clear, white sputum, hemorrhoids, constipation, nausea. She denies fever, chills, sweats, lightheadedness, dizziness, chest pain, palpitations, hemoptysis, emesis, diarrhea. Last BM was yesterday, but difficulty moving bowels. Urinating with out difficulty and denies dysuria, hematuria, increased urgency with urination. She does complain of left hip pain however states, "it does not hurt as bad as it did." Lately her blood sugars have been running on the lower side in which he checks blood sugars regularly, usually runs between 120 and 140. Her last A1C was done on 01/31/18 and was 7.3 Physical Exam (per Admitting): General Appearance: WD/WN (Elderly female), no apparent distress, + obese Head: normocephalic, atraumatic Eyes: normal inspection, sclerae normal ENT: normal ENT inspection, hearing grossly normal, + pertinent finding ( mucus membranes moist) Neck: supple, no adenopathy, no JVD Respiratory/Chest: chest non-tender, lungs clear, no accessory muscle use, + decreased breath sounds (poor inspiratory effort), + crackles (mild bibasilar) Cardiovascular: no murmur, + irregularly irregular, + abnormal peripheral pulses (diminished pedal pulses b/l, +1) Abdomen/GI: normal bowel sounds, non tender, soft, no organomegaly, + distended (secondary to obesity) Back: normal inspection, no CVA tenderness, no muscle spasm, normal range of motion Extremities/Musculoskelatal: no pedal edema, + pertinent finding (b/l lower extremity compression dressings bilaterally) Neurologic/Psych: alert, normal mood/affect, oriented x 3 Skin: normal color, no rash, + pertinent finding (+ left, lateral superifical hip wound x 2, erythematous base with minimal slough on periphery, no drainage, approx 1cm x 1cm) Hospital Course This is an 88 year old female with a past medical history of insulin dependent DM2, chronic atrial fibrillation on long-term anticoagulation, CKD stage 4, chronic diastolic CHF, CAD, PVD, anemia of chronic disease, hyperparathyroidism and obesity - presents with an infected L hip pressure wound Infected L Hip Wound Ulcerations - failed outpatient Keflex - multiple abx. allergies noted - pansensitive pseudomonas noted on cultures - Cefepime recommended as per ID x14 days - midline placed - plan for d/c to [facility] Insulin Dependent DM2 - Ha1c = 6.8% - lower dose of Lantus and insulin sliding scale - can monitor BSGs at [facility] and adjust accordingly Chronic A. Fib - continue b-abi - continue Coumadin with goal INR of 2-3 Chronic/Recurrent Dysphagia - outpatient GI follow-up, may need another esophageal dilatation CAD - continue aspirin, b-abi, ARB HTN - On Lasix, Metoprolol and Losartan - will increase Amlodipine for discharge CKD (chronic kidney disease) stage IV - monitor renal function - avoid nephrotoxic agents Anemia of chronic disease Asthma - continue Symbicort Hyperparathyroidism - continue calcitriol DVT ppx - Coumadin FULL CODE Total time spent on discharge = 50 minutes This includes examination of the patient, discharge planning, medication reconciliation, and communication with other providers. Discharge Instructions Please follow-up with primary care physician after stay at [facility] INR goal of 2-3 Cefepime 2 Grams for a total of 14 days, last dose on 05/17 outpatient GI evaluation for dysphagia, possible esophageal dilatation
[2018-05-09] MEDS ORDERED: NYSCR30 EXT (10:48)
[2018-05-09] MEDS ORDERED: ZINC20OI TOP (23:48)
[2018-05-10] MEDS ORDERED: [UNRECOGNIZED DRUG - CODE] IV (23:29)
== END 2018-05-08 15:00 | DRG 603 ==
LOC: C.EDB 10:52 → C.4E 14:19 → ENRESERV 15:27 → OBSVTOIN 05-05 13:22
PROVIDERS: ADMIT Hospitalist; ATTEND Family Medicine
PROC: 02HV33Z Insertion of Infusion Device into Superior Vena Cava, Percutaneous Approach (ICD-10-PCS; principal; 2018-05-07)
DX: L03.116 Cellulitis of left lower limb (principal); I13.0 Hypertensive heart and chronic kidney disease with heart failure and stage 1 through stage 4 chronic kidney disease, or unspecified chronic kidney disease; I50.30 Unspecified diastolic (congestive) heart failure; N18.4 Chronic kidney disease, stage 4 (severe); Z79.82 Long term (current) use of aspirin; Z79.01 Long term (current) use of anticoagulants; Z88.2 Allergy status to sulfonamides; Z88.8 Allergy status to other drugs, medicaments and biological substances; I87.8 Other specified disorders of veins; Z88.5 Allergy status to narcotic agent; Z88.0 Allergy status to penicillin; B96.5 Pseudomonas (aeruginosa) (mallei) (pseudomallei) as the cause of diseases classified elsewhere; E11.649 Type 2 diabetes mellitus with hypoglycemia without coma; I48.2 Chronic atrial fibrillation; E11.3299 Type 2 diabetes mellitus with mild nonproliferative diabetic retinopathy without macular edema, unspecified eye; E66.9 Obesity, unspecified; Z68.39 Body mass index [BMI] 39.0-39.9, adult; E21.3 Hyperparathyroidism, unspecified; E11.51 Type 2 diabetes mellitus with diabetic peripheral angiopathy without gangrene; Z83.3 Family history of diabetes mellitus

== ENCOUNTER 2018-05-13 20:17 | Inpatient (IN) | payer OTHER ==
[~2018-05-13] VITALS: Ht 162.6 cm; Wt 97.0 kg
[~2018-05-13 20:17] MED LIST changes: -ACET-1256 PO; -CALC0.2510 PO; +CALC0.5C PO; +CEFE2INJ2 IV; +CZR25 PO; +DOCU-94 PO; -DOCU100C31 PO; +FLUT0.15; -FLUT0.15 NAE; -FRS/40 PO; +FURO-85 PO; +HYDR2.5C37 TOP; -INSU100I SQ; -IPRA-64 INH; -LCTX PO; +NRV/10 PO; -NTRSL3 UT; +NYSCR30 EXT; +ZINC20OI TOP; +[UNRECOGNIZED DRUG - CODE] IV
--- NOTE | 2018-05-13 21:27 | DIAGNOSTIC IMAGING REPORT ---
CHEST ONE VIEW PORTABLE CLINICAL HISTORY: Altered mental status. COMPARISON STUDY: Chest radiograph and chest CT August 31, 2015. FINDINGS: Patient is rotated. Allowing for patient rotation, cardiomediastinal silhouette is stable. There is no evidence for pulmonary edema. No lobar consolidation is present. Lung volumes are within normal limits. IMPRESSION: No acute cardiopulmonary findings. Rotated study. Electronically signed by: Declan Person M.D. 05/13/2018 9:26 PM Dictated Date/Time: 05/13/2018 9:25 PM
[2018-05-13 21:44] LABS: BASO % 0.5 %; BASO ABS # 0.05 K/uL (0-0.2); EOS % 0.4 %; EOS ABS # 0.04 K/uL (0-0.5); HEMATOCRIT 35.8 % (37-47); HEMOGLOBIN 11.4 g/dL (12.0-16.0); IG# 0.03 K/uL (0.00-0.02); LYMPH % 10.8 %; LYMPH ABS # 1.19 K/uL (1.2-3.4); MEAN CELL VOLUME 87.3 fL (80-100); MEAN CORPUSCULAR HEMOGLOBIN 27.8 pg (25-34); MEAN CORPUSCULAR HGB CONC 31.8 g/dl (32-36); MEAN PLATELET VOLUME 9.9 fL (7.4-10.4); MONO % 8.7 %; MONO ABS # 0.96 K/uL (0.11-0.59); NEUT % 79.3 %; NEUT ABS # 8.74 K/uL (1.4-6.5); PLATELET COUNT 232 K/uL (130-400); RED CELL DISTRIBUTION WIDTH CV 16.3 % (11.5-14.5); RED CELL DISTRIBUTION WIDTH SD 52.4 fL (36.4-46.3); WHITE BLOOD COUNT 11.01 K/uL (4.8-10.8)
--- NOTE | 2018-05-13 21:50 | DIAGNOSTIC IMAGING REPORT ---
CT OF THE HEAD WITHOUT CONTRAST CLINICAL HISTORY: Altered mental status. COMPARISON STUDY: No previous studies for comparison. CT DOSE: 537.48 mGy.cm TECHNIQUE: Helical axial images of the head were obtained without IV contrast. Automated exposure control was utilized for the study. A dose lowering technique was utilized adhering to the principles of ALARA. FINDINGS: No acute intracranial hemorrhage, midline shift or mass effect is present. Ventricular system is unremarkable for age. Basilar cisterns are patent. There are no extra axial collections. Mild atrophy is noted. White matter hypodensity suggests small vessel disease. There are no findings to suggest acute dural sinus thrombosis or acute territorial infarct. Visualized portions of the sinuses and mastoid air cells are clear. There are no significant calvarial abnormalities. IMPRESSION: No acute intracranial findings. Electronically signed by: Declan Person M.D. 05/13/2018 9:48 PM Dictated Date/Time: 05/13/2018 9:46 PM
[2018-05-13 22:02] LABS: INR 2.6 (0.9-1.1); PTT PATIENT 43.3 SECONDS (21.0-31.0)
[2018-05-13 22:05] LABS: ALBUMIN 2.8 gm/dl (3.4-5.0); CALCIUM 9.8 mg/dl (8.5-10.1); CREATININE 2.04 mg/dl (0.60-1.20); POTASSIUM 3.5 mmol/L (3.5-5.1); TOTAL PROTEIN 7.6 gm/dl (6.4-8.2)
--- NOTE | 2018-05-13 22:38 | EMERGENCY ROOM VISIT NOTE ---
History Report prepared by Luis: Anna Perez Under the Supervision of: Dr. Yemi Llanos D.O. First contact with patient: 20:39 Chief Complaint: ALTERED MENTAL STATUS Stated Complaint: AMS History of Present Illness The patient is an 88 year old female who presents to the Emergency Room with complaints of sudden altered mental status starting yesterday. The patient's son states that she was in the hospital till 5 days ago for an infected ulcer on her left hip. He states that she has been doing well since leaving, but yesterday he received a call from Alicia Benjamin stating that she had fallen in the bathroom. He states that she did not truly fall as she was caught by staff and they laid her on the floor. He states that since then she has been lethargic, weak, and confused. He states that when you ask her any questions she responds with I don't know which is unlike her baseline. He states that prior to this the patient was able to drive herself to the grocery store to do grocery shopping. The patient complains of leg weakness. The patient's son complains of the patient not eating for the past few days. The patient's son denies the patient having a history of dementia. The patient denies abdominal pain, chest pain, cough, runny nose, numbness, vomiting, and arm weakness. Source of History: patient Onset: yesterday Position: head Quality: other (altered mental status) Timing: other (sudden) Associated Symptoms: + weakness (leg), No cough, No chest pain, No vomiting , No abdominal pain, No numbness Note: The patient's son complains of the patient being lethargic, confused, and not eating for the past few days. The patient denies a runny nose and arm weakness. Review of Systems See HPI for pertinent positives & negatives. A total of 10 systems reviewed and were otherwise negative. Past Medical & Surgical Medical Problems: (1) Anemia of chronic disease (2) Asthma, moderate (3) Bronchitis (4) CAD (coronary artery disease) (5) Chronic a-fib (6) CKD (chronic kidney disease), stage IV (7) Delirium (8) Diastolic CHF (9) Esophageal dysmotility (10) GERD (gastroesophageal reflux disease) (11) HTN (hypertension) (12) Hyperparathyroidism (13) Mild nonproliferative diabetic retinopathy associated with type 2 diabetes mellitus (14) Obesity (BMI 30-39.9) (15) Pseudomonas infection (16) PVD (peripheral vascular disease) (17) Stage II pressure ulcer of left hip (18) Type 2 diabetes mellitus (19) Venous stasis Surgical Problems: (1) History of cholecystectomy (2) History of coronary artery stent placement (3) History of esophagogastroduodenoscopy (EGD) (4) History of hysterectomy (5) History of surgical removal of ganglion cyst Family History Diabetes mellitus BROTHER SON Heart disease MOTHER (Heart Valve disorder, age 72) SISTER ( of [place] at age 63) Hypertension SON Simple silicosis FATHER ( at 56) Social History Smoking Status: Never Smoker Drug Use: none Marital Status: Occupation Status: retired Current/Historical Medications Scheduled Amlodipine (Norvasc), 10 MG PO DAILY Antacid (Antacid), 30 ML PO AC Aspirin (Aspirin Chewable), 81 MG PO QPM Azelastine Hcl-Fluticasone Pro (Dymista), 2 SPRY JACOBO BID Budesonide/Formoterol Fumarate (Symbicort 160/4.5 Inhaler ), 2 PUFFS INH BID Calcitriol (Calcitriol), 0.5 MCG PO DAILY Cefepime Hcl (Maxipime), 2 GM IV DAILY Docusate Sodium (Colace), 1 CAP PO BID Furosemide (Lasix), 20 MG PO BID Hydrocortisone (Hydrocortisone), 1 APPLN TOP UD Insulin Glargine (Basaglar Kwikpen), 20 UNITS SQ DAILY Losartan Potassium (Losartan Potassium), 12.5 MG PO DAILY Metoprolol Tartrate (Lopressor) (Lopressor), 12.5 MG PO BID Montelukast Sodium (Singulair), 10 MG PO QAM Montelukast Sodium (Singulair), 10 MG PO DAILY Nutritional Supplements (Nutritional Supplement), 90 ML PO TID Nystatin (Nystatin Cream), 1 APPLN EXT BID Pantoprazole (Protonix), 40 MG PO QAM Tuberculin Ppd (Tubersol), 0.1 ML ID UD Wound Dressings (Allevyn Gentle Border Lit), 1 TD UD Zinc Oxide (Topical) (Zinc Oxide), 1 APPLN TOP QS Scheduled PRN Acetaminophen (Tylenol), 650 MG PO Q4 PRN for Pain Acetaminophen (Tylenol), 650 MG PO Q4 PRN for Fever Albuterol Hfa (Ventolin Hfa), 2 PUFFS INH Q4 PRN for SOB/Wheezing Hydrocortisone 2.5% (Rectal) (Anusol-Hc 2.5%), 1 APPLN TOP TID PRN for discomfort Lorazepam (Ativan), 0.25 MG PO TID PRN for Anxiety Allergies Coded Allergies: Clofibrate (Verified Allergy, Severe, SWELLING, 05/13/18) SWELLING Rabeprazole (Verified Allergy, Intermediate, SOB/COUGHING AND THROAT FELT TIGHT/ABD. CRAMPING, 05/13/18) Fexofenadine (Verified Allergy, Mild, RASH, 05/13/18) Fibrates (Verified Allergy, Mild, SWELLING, 05/13/18) Fluvastatin (Verified Allergy, Mild, HIVES, 05/13/18) Metformin (Verified Allergy, Mild, URINARY FREQUENCY/RASH/ITCH, 05/13/18) URINARY FREQUENCY Morphine and Related (Verified Allergy, Mild, ITCHY/HIVES, 05/13/18) Moxifloxacin (Verified Allergy, Mild, ITCHY/NAUSEA, 05/13/18) Penicillins (Verified Allergy, Mild, HIVES, 05/13/18) (PER GEIGINGER NOTES, TOLERATES AMOXICILLIN FINE) Quinolones (Verified Allergy, Mild, RASH, 05/13/18) Chlorpropamide (Verified Allergy, Unknown, UNKNOWN, 05/13/18) NSAIDs (Verified Allergy, Unknown, UNKNOWN, 05/13/18) Sulfa Drugs (Verified Allergy, Unknown, UNKNOWN, 05/13/18) CI Pigment Blue 63 (Verified Adverse Reaction, Mild, MYALGIAS AND CRAMPS, 05/13/18) Codeine (Verified Adverse Reaction, Mild, FEELS "HIGH" ON/ITCHING, 05/13/18 ) FEELS "HIGH" ON Dexlansoprazole (Verified Adverse Reaction, Mild, MYALGIAS AND CRAMPS, ) Gemfibrozil (Verified Adverse Reaction, Mild, ABDOMINAL CRAMPS AND DIZZINESS, 05/13/18) ABDOMINAL CRAMPS Lisinopril (Verified Adverse Reaction, Mild, COUGH, 05/13/18) Rofecoxib (Verified Adverse Reaction, Mild, INDIGESTION, 05/13/18) INDIGESTION Physical Exam Vital Signs Date Time Temp Pulse Resp B/P (MAP) Pulse Ox O2 Delivery O2 Flow Rate FiO2 05/14/18 00:07 80 18 146/67 98 Room Air 05/13/18 22:24 84 18 162/99 94 Room Air 05/13/18 20:52 37.4 93 16 180/75 95 Room Air Physical Exam GENERAL: Sitting up in bed, confused, disheveled, chronically ill appearing EYE EXAM: normal conjunctiva. OROPHARYNX: Dry mucous membranes with thrush on tongue NECK: supple, no nuchal rigidity, no adenopathy, non-tender LUNGS: Clear to auscultation. Normal chest wall mechanics HEART: no murmurs, S1 normal and S2 normal ABDOMEN: abdomen soft, non-tender, normo-active bowel sounds, no masses, no rebound or guarding. BACK: Back is symmetrical on inspection and there is no deformity, no midline tenderness, no CVA tenderness. SKIN: no rashes and no bruising UPPER EXTREMITIES: upper extremities are grossly normal. LOWER EXTREMITIES: No pitting edema. NEURO EXAM: Awake. Oriented to person, but not year or month. Moving all extremities. Nonfocal. Medical Decision & Procedures ER Provider Diagnostic Interpretation: Radiology results as stated below per my review and the radiologist's interpretation: CT OF THE HEAD WITHOUT CONTRAST CLINICAL HISTORY: Altered mental status. COMPARISON STUDY: No previous studies for comparison. CT DOSE: 537.48 mGy.cm TECHNIQUE: Helical axial images of the head were obtained without IV contrast. Automated exposure control was utilized for the study. A dose lowering technique was utilized adhering to the principles of ALARA. FINDINGS: No acute intracranial hemorrhage, midline shift or mass effect is present. Ventricular system is unremarkable for age. Basilar cisterns are patent. There are no extra axial collections. Mild atrophy is noted. White matter hypodensity suggests small vessel disease. There are no findings to suggest acute dural sinus thrombosis or acute territorial infarct. Visualized portions of the sinuses and mastoid air cells are clear. There are no significant calvarial abnormalities. IMPRESSION: No acute intracranial findings. Electronically signed by: Declan Person M.D. 05/13/2018 9:48 PM Dictated Date/Time: 05/13/2018 9:46 PM CHEST ONE VIEW PORTABLE CLINICAL HISTORY: Altered mental status. COMPARISON STUDY: Chest radiograph and chest CT August 31, 2015. FINDINGS: Patient is rotated. Allowing for patient rotation, cardiomediastinal silhouette is stable. There is no evidence for pulmonary edema. No lobar consolidation is present. Lung volumes are within normal limits. IMPRESSION: No acute cardiopulmonary findings. Rotated study. Electronically signed by: Declan Person M.D. 05/13/2018 9:26 PM Dictated Date/Time: 05/13/2018 9:25 PM Laboratory Results 05/13/18 21:30 Red Blood Count 4.10, Mean Corpuscular Volume 87.3, Mean Corpuscular Hemoglobin 27.8, Mean Corpuscular Hemoglobin Concent 31.8, Mean Platelet Volume 9.9, Neutrophils (%) (Auto) 79.3, Lymphocytes (%) (Auto) 10.8, Monocytes (%) (Auto) 8.7, Eosinophils (%) (Auto) 0.4, Basophils (%) (Auto) 0.5, Neutrophils # (Auto) 8.74, Lymphocytes # (Auto) 1.19, Monocytes # (Auto) 0.96, Eosinophils # (Auto) 0.04, Basophils # (Auto) 0.05 05/13/18 21:30 Test 05/13/18 21:30 05/13/18 22:15 05/14/18 00:14 White Blood Count 11.01 K/uL (4.8-10.8) Red Blood Count 4.10 M/uL (4.2-5.4) Hemoglobin 11.4 g/dL (12.0-16.0) Hematocrit 35.8 % (37-47) Mean Corpuscular Volume 87.3 fL (80-100) Mean Corpuscular Hemoglobin 27.8 pg (25-34) Mean Corpuscular Hemoglobin Concent 31.8 g/dl (32-36) Platelet Count 232 K/uL (130-400) Mean Platelet Volume 9.9 fL (7.4-10.4) Neutrophils (%) (Auto) 79.3 % Lymphocytes (%) (Auto) 10.8 % Monocytes (%) (Auto) 8.7 % Eosinophils (%) (Auto) 0.4 % Basophils (%) (Auto) 0.5 % Neutrophils # (Auto) 8.74 K/uL (1.4-6.5) Lymphocytes # (Auto) 1.19 K/uL (1.2-3.4) Monocytes # (Auto) 0.96 K/uL (0.11-0.59) Eosinophils # (Auto) 0.04 K/uL (0-0.5) Basophils # (Auto) 0.05 K/uL (0-0.2) RDW Standard Deviation 52.4 fL (36.4-46.3) RDW Coefficient of Variation 16.3 % (11.5-14.5) Immature Granulocyte % (Auto) 0.3 % Immature Granulocyte # (Auto) 0.03 K/uL (0.00-0.02) Prothrombin Time 26.4 SECONDS (9.0-12.0) Prothromb Time International Ratio 2.6 (0.9-1.1) Activated Partial Thromboplast Time 43.3 SECONDS (21.0-31.0) Partial Thromboplastin Ratio 1.7 Anion Gap 11.0 mmol/L (3-11) Est Creatinine Clear Calc Drug Dose 21.5 ml/min Estimated GFR () 24.8 Estimated GFR (Non- 21.4 BUN/Creatinine Ratio 21.6 (10-20) Calcium Level 9.8 mg/dl (8.5-10.1) Total Bilirubin 0.5 mg/dl (0.2-1) Direct Bilirubin 0.2 mg/dl (0-0.2) Aspartate Amino Transf (AST/SGOT) 18 U/L (15-37) Alanine Aminotransferase (ALT/SGPT) 16 U/L (12-78) Alkaline Phosphatase 87 U/L (45-117) Troponin I 0.030 ng/ml (0-0.045) Total Protein 7.6 gm/dl (6.4-8.2) Albumin 2.8 gm/dl (3.4-5.0) Thyroid Stimulating Hormone (TSH) 0.782 uIu/ml (0.300-4.500) Urine Color YELLOW Urine Appearance CLEAR (CLEAR) Urine pH 5.0 (4.5-7.5) Urine Specific [employer] 1.013 (1.000-1.030) Urine Protein 2+ (NEG) Urine Glucose (UA) NEG (NEG) Urine Ketones NEG (NEG) Urine Occult Blood 1+ (NEG) Urine Nitrite NEG (NEG) Urine Bilirubin NEG (NEG) Urine Urobilinogen NEG (NEG) Urine Leukocyte Esterase NEG (NEG) Urine WBC (Auto) 0 /hpf (0-5) Urine RBC (Auto) 0-4 /hpf (0-4) Urine Hyaline Casts (Auto) 0 /lpf (0-5) Urine Epithelial Cells (Auto) 0-5 /lpf (0-5) Urine Bacteria (Auto) NEG (NEG) Laboratory results per my review. Medications Administered Medications (Trade) Dose Ordered Sig/Amanda Route Start Time Stop Time Status Last Admin Dose Admin Lactated Ringer's 1,000 ml @ 50 mls/hr Q20H IV 05/13/18 22:45 06/12/18 22:44 05/13/18 23:34 50 MLS/HR Nystatin (Mycostatin Susp) 5 ml NOW STAT PO 05/13/18 22:44 05/13/18 22:46 DC 05/13/18 23:19 5 ML ECG Per My Interpretation Indication: altered mental status Rate (beats per minute): 85 Rhythm: atrial fibrillation Findings: PVC, Q waves (Septal), ST depression (inferior, anterior, and lateral leads), left axis deviation Comparison ECG Date: 09/01/2018 Change: Septal Q waves are old. Inferior is old. Anterior ST depressions are new. Atrial fibrillation is old. ED Course ED COURSE: Vital signs were reviewed and showed situational hypertension. The patients medical record was reviewed The above diagnostic studies were performed and reviewed. ED treatments and interventions as stated above. 9: The patient was evaluated in room A10. A complete history and physical examination was performed. 7: Upon reevaluation, the patient is resting comfortably. I discussed my findings with the patient and her family and they understand and agree with the treatment plan. Based on the patients age, coexisting illnesses, exam and lab findings the decision to treat as an inpatient was made. The patient remained stable while under my care. The patient will be evaluated for further management. 2243: I reviewed the patient's case with Dr. Sanchez Hospitalist. He will evaluate the patient for further management. 2244: Ordered Nystatin 5 ml PO. Medical Decision Differential diagnoses includes but is not limited to toxic, metabolic, infectious, traumatic, cardiac, neurologic, hematologic, psychiatric and inflammatory etiologies. Patient is an 88-year-old female who presents the ER for confusion. She lives at [facility] and has been on antibiotics for left hip infection. Family notes she has been very tired and lethargic. CBC shows a mild leukocytosis BMP with a creatinine of 2. LFTs and bilirubin was unremarkable. Troponin was detectable but not positive. TSH was normal. UA was negative. INR was 2.6. CT head was negative. Chest x-ray was unremarkable. EKG shows slightly worsening ST changes. Patient denies any chest pain/shortness of breath. Patient is neurologically intact without signs of a stroke. UA was unremarkable. Family was updated bedside and discussed with the hospitalist due to confusion patient will be observed overnight. No new medications. No benzos for the past 24 hours. Medication Reconcilliation Current Medication List: was personally reviewed by me Blood Pressure Screening Patient's blood pressure: Elevated blood pressure Blood pressure disposition: Elevated BP felt to be situational Consults Time Called: 2241 Consulting Physician: Dr. Sanchez Hospitalist Returned Call: [phone] I reviewed the patient's case with Dr. Daniel Ayersist. He will evaluate the patient for further management. Impression Primary Impression: Altered mental status Additional Impression: Thrush Scribe Attestation The scribe's documentation has been prepared under my direction and personally reviewed by me in its entirety. I confirm that the note above accurately reflects all work, treatment, procedures, and medical decision making performed by me. Departure Information Dispostion Being Evaluated By Hospitalist Referrals Agustina Mock D.O. (PCP) Patient Instructions My [facility] Problem Qualifiers Primary Impression: Altered mental status Altered mental status type: unspecified Qualified Codes: R41.82 - Altered mental status, unspecified
[2018-05-13] MEDS ORDERED: NYSTATIN SUSP 500,000 U/5 ML UDC PO STA (22:44)
[2018-05-13] MEDS ORDERED: LACTATED RINGER'S 1000ML 1,000 ML IV SCH (22:45)
[2018-05-13] MEDS ORDERED: ANT PO (23:26)
[2018-05-13] MEDS ORDERED: AMLO10TA3 PO (23:31)
[2018-05-13] MEDS ORDERED: AMLO5TAB3 PO (23:31)
[2018-05-13] MEDS ORDERED: NUTR1LIQ55 PO (23:34)
[2018-05-13] MEDS ORDERED: MONT1TAB3 PO (23:34)
[2018-05-13] MEDS ORDERED: TUBE5INJ3 ID (23:36)
[2018-05-13] MEDS ORDERED: LORA-741 PO (23:37)
[2018-05-13] MEDS ORDERED: INSU100I23 SQ (23:38)
[2018-05-13] MEDS ORDERED: HYDR2.5C37 TOP (23:43)
[2018-05-13] MEDS ORDERED: ACET-1311 PO (23:45)
[2018-05-13] MEDS ORDERED: HYDCR25 TOP (23:52)
[2018-05-13] MEDS ORDERED: WOUN1PAD TD (23:55)
[2018-05-13] MEDS ORDERED: [UNRECOGNIZED DRUG - CODE] TD (23:57)
[2018-05-14] VITALS (8 sets, daily range): BP systolic 123–178; BP diastolic 39–84; PULSE 59–86; TEMP 36.6–37.6; O2SAT 91–100; Ht 162.6 cm; Wt 97.0 kg
[2018-05-14] MEDS ORDERED: TRAMADOL HCL 50 MG TAB PO PRN (00:30)
[2018-05-14] MEDS ORDERED: ACETAMINOPHEN 325 MG TAB PO PRN (00:30)
[2018-05-14] MEDS ORDERED: PROCHLORPERAZINE INJ 5 MG in SYRINGE 4 ML IV PRN (00:30)
[2018-05-14] MEDS ORDERED: GLUCOSE 40% GEL 15 GM TUBE PO PRN (00:30)
[2018-05-14] MEDS ORDERED: DEXTROSE 50% 50 ML SYR IV PRN (00:30)
[2018-05-14] MEDS ORDERED: GLUCOSE 10 TABS/TUBE PO PRN (00:30)
[2018-05-14] MEDS ORDERED: GLUCAGON FOR INJ 1 MG VIAL SQ PRN (00:30)
[2018-05-14] MEDS ORDERED: CARBOHYDRATES FOR HYPOGLYCEMIA PO PRN (00:30)
[2018-05-14] MEDS ORDERED: HYDROmorphone INJ 0.5 MG/0.5 ML SYR IV PRN (00:30)
[2018-05-14] MEDS ORDERED: NITROGLYCERIN 0.4 MG SL PER TAB CHARGE SL PRN (00:30)
[2018-05-14] MEDS ORDERED: FLUCONAZOLE / NSS 200 MG in PREMIXED NSS 100 ML IV ONE (01:30)
[2018-05-14] MEDS ORDERED: INSULIN ASPART 100 UNITS/ML 3 ML PEN SC ONE (01:45)
--- NOTE | 2018-05-14 03:30 | HISTORY & PHYSICAL EXAMINATION ---
DATE OF ADMISSION: 05/13/2018 PRIMARY CARE DOCTOR: Dr. Capone. CHIEF COMPLAINT: Confusion as per records. HISTORY OF PRESENT ILLNESS: History obtained from the patient, family, records. Limited history from patient secondary to confusion. Medical history is significant for hypertension, chronic diastolic heart failure. coronary artery disease sp stenting, peripheral vascular disease as per records ; atrial fibrillation on Coumadin, DM2, insulin requiring, esophageal dysmotility as per records, chronic kidney disease (baseline creatinine of 1.6). Recent confinement last week for infected left hip wound ulceration (Pseudomonas on growth). IV Cefepime recommended for 2 weeks via PICC line, last dose 05/17/2018 as per discharge summary. Patient discharged to [facility] rehab/facilitation of IV antibiotics. As per [facility] rehab notes, patient is having issues with chronic dysphagia, throat burning, difficulty eating. No improvement with antacid regimen. No concerns from [facility] speech therapy as per notes. Lorazepam started for anxiety. Patient was subsequently noted to be more confused at the home in the last two days. Mechanical fall from leg weakness. No head trauma. Somewhat sleepy, poor appetite, having trouble swallowing. "White stuff" in the mouth noted. Patient denies chest pain, shortness of breath, abdominal pain. Tonight the patient pulled out her PICC line. Patient brought to the Emergency Room by family. At the ER, the patient noted to be coughing following with oral Nystatin order. MEDICAL HISTORY: As above. Most recent EGD from March 2018 showed no endoscopic abnormality to explain dysphagia, esophagus dilated. OPERATIONS: She has had cholecystectomy, hysterectomy, ganglion cyst removal. HOME MEDICATIONS: Include Coumadin, Colace, Lasix, fluticasone, Anusol, Losartan, Ventolin, aspirin, Symbicort, calcitriol, Metoprolol ALLERGIES: CHLORPROPAMIDE, CODEINE, GEMFIBROZIL, LISINOPRIL, METFORMIN, SIMVASTATIN, FEXOFENADINE, OMEPRAZOLE, ROFECOXIB, MOXIFLOXACIN, PENICILLIN, SULFA, QUINOLONE, NSAIDS, MORPHINE. FAMILY HISTORY: Could not be obtained. PERSONAL AND SOCIAL HISTORY: Could not be obtained. REVIEW OF SYSTEMS: Could not be obtained. PHYSICAL EXAMINATION: VITAL SIGNS: Blood pressure was noted to be 180/75, later 160/99, pulse rate 84, RR 18, temperature 37, sats 94 on room air. GENERAL: Noted to be laconic, hard of hearing. Oriented to month. Obese. SKIN: Pallor, warm. HEENT: Bespectacled. Pale palpebral conjunctivae. No ptosis. White patches on the tongue. No posterior pharyngeal wall plaques. NECK: Short, supple. CHEST: Decreased breath sounds. No tenderness. HEART: Irregular, no murmur. ABDOMEN: Some distention, nontender. EXTREMITIES: Dressing on the left hip. Minimal LE edema, no tenderness. NEUROLOGIC: Coherent, but hard of hearing, but is oriented to month. No facial asymmetry. Gait and stance not assessed. LABORATORY DATA: Hemoglobin was 11.4, hematocrit 35.8, white blood cells 11, platelets noted to be 200. Sodium 141, potassium 3.5, BUN 44, creatinine 2, glucose 175. Serum ammonia was less than 10. Troponin 0.03. INR was noted to be 2.6. Hemoglobin A1c from April 2018 was 6.8. Chest x-ray rotated. No infiltrate EKG as per my interpretation, rate 85, AFib. ST depression on the inferolateral leads, PVCs, PRWP. UA, epithelial cells. ASSESSMENT: 1. Delirium multifactorial : Hypertensive urgency. Acute renal failure on chronic renal insufficiency secondary to poor p.o. intake secondary to thrush/swallowing issues Recent benzodiazapine as needed medication for anxiety possibly contributory. 2. Atrial fibrillation, rate controlled on Coumadin. INR therapeutic. 3. Coronary artery disease status post stenting 4. Chronic diastolic heart failure, patient slightly on the dry side 5. chronic anemia secondary to chronic kidney disease. Hemoglobin at baseline. 6. DM2, insulin requiring, well controlled as of recent inpatient HgA1c. 7. Left hip wound (Pseudomonas), on Cefepime completion rx until 05/17/18 via PICC line PICC line pulled out by patient secondary to delirium. PLAN: PCU. Continue anti-HTN meds, may need titration. Monitor creatinine response to IV fluids. Hold home ARB/diuretic for now until creatinine at baseline. Swallow eval RE aspiration risk IV fluconazole for now for thrush due to concerns about aspiration risk until swallow eval completed Hold Lorazepam, add to ADR list Consider MRI of the brain if patient's mentation is not improved in AM to rule out CVA. Wound care nurse consult RE L hip wound May need PICC line reinsertion to facilitate IV Cefepime outpatient beyond 05/17 if warranted pending evaluation. basal insulin adjusted for n.p.o. state until swallow evaluation done. ISS BG goal 140-180. Deep venous thrombosis prophylaxis, Coumadin, INR 2-3. Full code. The patient's son requesting for updates from providers. Mr. Luis Christensen, contact number is [phone], . [facility]
[2018-05-14] MEDS: INSULIN ASPART 100 UNITS/ML 3 ML PEN SC SCH ×5 (06:00→21:25)
[2018-05-14] MEDS: CEFEPIME IV 2,000 MG in SYRINGE 7.5 ML IV SCH (06:13)
[2018-05-14 06:29] LABS: BASO % 0.5 %; BASO ABS # 0.05 K/uL (0-0.2); EOS % 0.7 %; EOS ABS # 0.07 K/uL (0-0.5); HEMATOCRIT 34.7 % (37-47); HEMOGLOBIN 11.1 g/dL (12.0-16.0); IG# 0.03 K/uL (0.00-0.02); LYMPH % 12.3 %; LYMPH ABS # 1.19 K/uL (1.2-3.4); MEAN CELL VOLUME 87.2 fL (80-100); MEAN CORPUSCULAR HEMOGLOBIN 27.9 pg (25-34); MONO % 8.6 %; MONO ABS # 0.83 K/uL (0.11-0.59); NEUT % 77.6 %; NEUT ABS # 7.49 K/uL (1.4-6.5); PLATELET COUNT 206 K/uL (130-400); RED CELL DISTRIBUTION WIDTH CV 16.3 % (11.5-14.5); RED CELL DISTRIBUTION WIDTH SD 52.3 fL (36.4-46.3); WHITE BLOOD COUNT 9.66 K/uL (4.8-10.8)
[2018-05-14 06:41] LABS: INR 2.7 (0.9-1.1); PTT PATIENT 44.4 SECONDS (21.0-31.0)
[2018-05-14 07:02] LABS: CALCIUM 9.3 mg/dl (8.5-10.1); CREATININE 2.16 mg/dl (0.60-1.20); POTASSIUM 3.5 mmol/L (3.5-5.1)
[2018-05-14] MEDS ORDERED: LACTATED RINGER'S 1000ML 1,000 ML IV SCH (07:45)
[2018-05-14] MEDS ORDERED: CEFEPIME CONSULT ACTIVE PRN (09:00)
[2018-05-14] MEDS: INSULIN GLARGINE SOLOSTAR 100 UNITS/ML 3 ML PEN SQ SCH (10:50)
[2018-05-14] MEDS: METOPROLOL TARTRATE 25 MG TAB PO SCH ×2 (11:13→21:22)
[2018-05-14] MEDS: DOCUSATE SODIUM 100 MG CAP PO SCH ×2 (11:13→21:21)
[2018-05-14] MEDS: MONTELUKAST SOD 10 MG TAB PO SCH (11:13)
[2018-05-14] MEDS: AMLODIPINE BESYLATE 5 MG TAB PO SCH (11:13)
[2018-05-14] MEDS: PANTOprazole SOD 40 MG TAB PO SCH (11:14)
[2018-05-14] MEDS ORDERED: NURSING VERBAL MED ORDER ONE (15:30)
--- NOTE | 2018-05-14 18:51 | Progress Note ---
Subjective Date of Service: May 14, 2018. Subjective Pt evaluation today including: conversation w/ patient, physical exam, lab review, review of studies, review of inpatient medication list Saw/examined the patient in room 203 She is more alert today, oriented x2 (person and place) Denies any shortness of breath/chest pain c/o dysphagia even to liquids; spitting up her food Problem List Medical Problems: (1) Altered mental status Status: Acute (2) Failure of outpatient treatment Status: Acute (3) Pseudomonas aeruginosa infection Status: Acute (4) Shortness of breath Status: Acute (5) Thrush Status: Acute (6) Wound of skin Status: Acute Review of Systems Constitutional: No fever, No chills ENT: + trouble swallowing Respiratory: No cough, No sputum, No shortness of breath Cardiac: No chest pain, No edema, No palpitations Abdomen: No pain, No nausea, No vomiting, No diarrhea Musculoskeletal: No joint pain Medications Current Inpatient Medications Medications (Trade) Dose Ordered Sig/Amanda Route Start Time Stop Time Status Last Admin Dose Admin Acetaminophen (Tylenol Tab) 650 mg Q4H PRN PO 05/14/18 00:30 06/13/18 00:29 Nitroglycerin (Nitrostat Tab) 0.4 mg UD PRN SL 05/14/18 00:30 06/13/18 00:29 Glucose (Glucose 40% Gel) 15-30 GRAMS 15 GRAMS... UD PRN PO 05/14/18 00:30 06/13/18 00:29 Glucose (Glucose Chew Tab) 4-8 Tablets 4 Tabl... UD PRN PO 05/14/18 00:30 06/13/18 00:29 Dextrose (Dextrose 50% 50ML Syringe) 25-50ML 25ML FOR ... UD PRN IV 05/14/18 00:30 06/13/18 00:29 Glucagon (Glucagon Inj) 1 mg UD PRN SQ 05/14/18 00:30 06/13/18 00:29 Carbohydrates (Carbohydrates For Hypoglycemia) 15-30 GRAMS 15 grams if BSG 54-69... UD PRN PO 05/14/18 00:30 06/13/18 00:29 Hydromorphone HCl (Dilaudid Inj) 0.25 mg Q6H PRN IV 05/14/18 00:30 05/28/18 00:29 Tramadol HCl (Ultram Tab) 25 mg Q6H PRN PO 05/14/18 00:30 06/13/18 00:29 Amlodipine Besylate (Norvasc Tab) 10 mg DAILY PO 05/14/18 09:00 06/13/18 08:59 05/14/18 11:13 10 MG Aspirin (Aspirin Chew) 81 mg QPM PO 05/14/18 21:00 06/13/18 20:59 Docusate Sodium (coLACE CAP) 100 mg BID PO 05/14/18 09:00 06/13/18 08:59 05/14/18 11:13 100 MG Insulin Glargine (Lantus Solostar Pen) 5 units DAILY SQ 05/14/18 09:00 06/13/18 08:59 05/14/18 10:50 5 UNITS Metoprolol Tartrate (Lopressor Tab) 12.5 mg BID PO 05/14/18 09:00 06/13/18 08:59 05/14/18 11:13 12.5 MG Montelukast Sodium (Singulair Tab) 10 mg DAILY PO 05/14/18 09:00 06/13/18 08:59 05/14/18 11:13 10 MG Pantoprazole Sodium (Protonix Tab) 40 mg QAM PO 05/14/18 09:00 06/13/18 08:59 05/14/18 11:14 40 MG Miscellaneous Information (Order Awaiting Action) 1 ea QS N/A 05/14/18 08:00 06/13/18 07:59 Prochlorperazine Edisylate 5 mg/ Syringe 5 ml @ 5 mls/min Q6H PRN IV 05/14/18 00:30 06/13/18 00:29 Cefepime HCl (Consult) 1 ea UD PRN N/A 05/14/18 09:00 05/18/18 08:59 Cefepime HCl 2000 mg/Syringe 20 ml @ 5 mls/min Q24H IV 05/14/18 06:00 05/18/18 05:59 05/14/18 06:13 5 MLS/MIN Insulin Aspart (novoLOG ASPART) SLIDING SCALE If C... ACHS SC 05/14/18 16:15 06/13/18 16:14 05/14/18 17:47 3 UNITS Objective Vital Signs Date Time Temp Pulse Resp B/P (MAP) Pulse Ox O2 Delivery O2 Flow Rate FiO2 05/14/18 13:01 62 16 154/59 (90) 95 Room Air 05/14/18 12:00 36.6 64 16 139/77 (97) 100 Nasal Cannula 2.0 05/14/18 08:00 Nasal Cannula 2.0 05/14/18 08:00 36.6 86 178/74 (108) 99 Nasal Cannula 2.0 05/14/18 04:00 Room Air 05/14/18 03:41 37.0 59 16 130/72 (91) 92 Room Air 05/14/18 00:59 36.6 84 18 154/65 95 Room Air 05/14/18 00:07 80 18 146/67 98 Room Air 05/13/18 22:24 84 18 162/99 94 Room Air 05/13/18 20:52 37.4 93 16 180/75 95 Room Air Physical Exam General Appearance: no apparent distress, + pertinent finding (underlying dementia, pleasant; spitting up food; coughing) Respiratory/Chest: lungs clear, normal breath sounds, no respiratory distress, no accessory muscle use Cardiovascular: regular rate, rhythm, no edema, no murmur Extremities: normal inspection, no pedal edema Neurologic/Psychiatric: no motor/sensory deficits, alert, normal mood/affect, + pertinent finding (oriented x2) Laboratory Results Last 24 Hours Test 05/13/18 21:30 05/13/18 22:15 05/14/18 00:14 05/14/18 01:51 White Blood Count 11.01 K/uL Red Blood Count 4.10 M/uL Hemoglobin 11.4 g/dL Hematocrit 35.8 % Mean Corpuscular Volume 87.3 fL Mean Corpuscular Hemoglobin 27.8 pg Mean Corpuscular Hemoglobin Concent 31.8 g/dl Platelet Count 232 K/uL Mean Platelet Volume 9.9 fL Neutrophils (%) (Auto) 79.3 % Lymphocytes (%) (Auto) 10.8 % Monocytes (%) (Auto) 8.7 % Eosinophils (%) (Auto) 0.4 % Basophils (%) (Auto) 0.5 % Neutrophils # (Auto) 8.74 K/uL Lymphocytes # (Auto) 1.19 K/uL Monocytes # (Auto) 0.96 K/uL Eosinophils # (Auto) 0.04 K/uL Basophils # (Auto) 0.05 K/uL RDW Standard Deviation 52.4 fL RDW Coefficient of Variation 16.3 % Immature Granulocyte % (Auto) 0.3 % Immature Granulocyte # (Auto) 0.03 K/uL Prothrombin Time 26.4 SECONDS Prothromb Time International Ratio 2.6 Activated Partial Thromboplast Time 43.3 SECONDS Partial Thromboplastin Ratio 1.7 Sodium Level 141 mmol/L Potassium Level 3.5 mmol/L Chloride Level 103 mmol/L Carbon Dioxide Level 27 mmol/L Anion Gap 11.0 mmol/L Blood Urea Nitrogen 44 mg/dl Creatinine 2.04 mg/dl Est Creatinine Clear Calc Drug Dose 21.5 ml/min Estimated GFR () 24.8 Estimated GFR (Non- 21.4 BUN/Creatinine Ratio 21.6 Random Glucose 175 mg/dl Calcium Level 9.8 mg/dl Total Bilirubin 0.5 mg/dl Direct Bilirubin 0.2 mg/dl Aspartate Amino Transf (AST/SGOT) 18 U/L Alanine Aminotransferase (ALT/SGPT) 16 U/L Alkaline Phosphatase 87 U/L Troponin I 0.030 ng/ml Total Protein 7.6 gm/dl Albumin 2.8 gm/dl Thyroid Stimulating Hormone (TSH) 0.782 uIu/ml Urine Color YELLOW Urine Appearance CLEAR Urine pH 5.0 Urine Specific [place] 1.013 Urine Protein 2+ Urine Glucose (UA) NEG Urine Ketones NEG Urine Occult Blood 1+ Urine Nitrite NEG Urine Bilirubin NEG Urine Urobilinogen NEG Urine Leukocyte Esterase NEG Urine WBC (Auto) 0 /hpf Urine RBC (Auto) 0-4 /hpf Urine Hyaline Casts (Auto) 0 /lpf Urine Epithelial Cells (Auto) 0-5 /lpf Urine Bacteria (Auto) NEG Ammonia < 10.0 umol/L Bedside Glucose 170 mg/dl Test 05/14/18 06:09 05/14/18 06:11 05/14/18 11:11 05/14/18 16:09 Bedside Glucose 138 mg/dl 155 mg/dl 233 mg/dl White Blood Count 9.66 K/uL Red Blood Count 3.98 M/uL Hemoglobin 11.1 g/dL Hematocrit 34.7 % Mean Corpuscular Volume 87.2 fL Mean Corpuscular Hemoglobin 27.9 pg Mean Corpuscular Hemoglobin Concent 32.0 g/dl Platelet Count 206 K/uL Mean Platelet Volume 10.0 fL Neutrophils (%) (Auto) 77.6 % Lymphocytes (%) (Auto) 12.3 % Monocytes (%) (Auto) 8.6 % Eosinophils (%) (Auto) 0.7 % Basophils (%) (Auto) 0.5 % Neutrophils # (Auto) 7.49 K/uL Lymphocytes # (Auto) 1.19 K/uL Monocytes # (Auto) 0.83 K/uL Eosinophils # (Auto) 0.07 K/uL Basophils # (Auto) 0.05 K/uL RDW Standard Deviation 52.3 fL RDW Coefficient of Variation 16.3 % Immature Granulocyte % (Auto) 0.3 % Immature Granulocyte # (Auto) 0.03 K/uL Prothrombin Time 28.3 SECONDS Prothromb Time International Ratio 2.7 Activated Partial Thromboplast Time 44.4 SECONDS Partial Thromboplastin Ratio 1.7 Sodium Level 141 mmol/L Potassium Level 3.5 mmol/L Chloride Level 104 mmol/L Carbon Dioxide Level 27 mmol/L Anion Gap 10.0 mmol/L Blood Urea Nitrogen 48 mg/dl Creatinine 2.16 mg/dl Est Creatinine Clear Calc Drug Dose 20.3 ml/min Estimated GFR () 23.1 Estimated GFR (Non- 19.9 BUN/Creatinine Ratio 22.2 Random Glucose 147 mg/dl Calcium Level 9.3 mg/dl Assessment and Plan This is an 88 year old female with a past medical history of insulin dependent DM2, chronic atrial fibrillation on long-term anticoagulation, CKD stage 4, chronic diastolic CHF, CAD, PVD, anemia of chronic disease, hyperparathyroidism and obesity - presents with confusion; dysphagia Dysphagia Esophageal Stricture? - patient presented with difficulty swallowing - she is spitting up food, even broth - denies any chest pain/shortness of breath - has had a hx. of esophageal stricture s/p esophageal dilatation about 3-4 weeks ago at [place] - speech eval placed - GI consulted Altered Mental Status - possible underlying dementia - received some Ativan in the SNF - oriented x2; will monitor Infected Hip Wound Ulceration - patient had been on Cefepime - last dose was to be on 05/17 - PICC line was pulled out by the patient when she her mental status was altered - plan to continue Cefepime while here until 05/17 Insulin Dependent DM2 - continue Lantus and sliding scale - monitor BSGs Chronic Atrial Fibrillation - on long-term anticoagulation - continue Coumadin in AM (it is currently held) - continue b-abi DVT ppx - Coumadin, INR goal of 2-3 FULL CODE
[2018-05-14] MEDS: ASPIRIN 81 MG CHEW PO SCH (21:21)
[2018-05-15] VITALS (8 sets, daily range): BP systolic 135–171; BP diastolic 60–84; PULSE 62–88; TEMP 36.4–37.6; O2SAT 92–94
[2018-05-15] MEDS: CEFEPIME IV 2,000 MG in SYRINGE 7.5 ML IV SCH (05:20)
[2018-05-15 06:30] LABS: INR 3.1 (0.9-1.1)
[2018-05-15 06:52] LABS: CALCIUM 9.3 mg/dl (8.5-10.1); CREATININE 2.65 mg/dl (0.60-1.20); POTASSIUM 3.7 mmol/L (3.5-5.1)
[2018-05-15] MEDS: INSULIN ASPART 100 UNITS/ML 3 ML PEN SC SCH ×4 (07:00→21:02)
--- NOTE | 2018-05-15 07:34 | Clinical Documentation Query ---
CLINICAL DOCUMENTATION QUERY 88 yo female admitted with confusion and AMS. In your clinical opinion is this patient being managed for: ( ) Encephalopathy ( ) Not Agree ( ) Other explanation of clinical findings (No explanation is considered a No Response) ( x ) Unable to determine ( ) Need to Discuss (Phone CDS or qliq) (No discussion is considered a No Response) The medical record reflects the following clinical findings, treatment, and risk factors. Clinical Indicators: As above Treatment: Wound consult, ICU, IV Cefepime, IV hydration, fall/aspiration precautions Risk Factors: WBC 11.01, infected ulceration left hip, dysphagia, JOANN, +MRSA Please clarify and document your clinical opinion in the progress notes and discharge summary. Terms such as "probable", "suspected", "likely", "questionable", "possible", or "still to be ruled out" are acceptable. IF IN AGREEMENT, YOU MUST DOCUMENT ABOVE DIAGNOSTIC STATEMENT IN DAILY PROGRESS NOTES AND DISCHARGE SUMMARY. This document is not part of the patient's record. Thank You, Jessica Dunn RN, MSN [id number]
[2018-05-15] MEDS: SODIUM CHLORIDE 0.9% 1000ML 1,000 ML IV SCH ×2 (08:31→20:41)
[2018-05-15] MEDS: AMLODIPINE BESYLATE 5 MG TAB PO SCH (09:00)
[2018-05-15] MEDS: METOPROLOL TARTRATE 25 MG TAB PO SCH ×2 (09:28→21:00)
[2018-05-15] MEDS: PANTOprazole SOD 40 MG TAB PO SCH (09:28)
[2018-05-15] MEDS: DOCUSATE SODIUM 100 MG CAP PO SCH ×2 (09:29→20:58)
[2018-05-15] MEDS: MONTELUKAST SOD 10 MG TAB PO SCH (09:29)
[2018-05-15] MEDS: INSULIN GLARGINE SOLOSTAR 100 UNITS/ML 3 ML PEN SQ SCH (09:31)
--- NOTE | 2018-05-15 10:59 | Gastrointestinal Consultation ---
Gastrointestinal Consultation Date of Consultation: May 15, 2018 Attending Physician: Meng Lang Consulting Physician: Gisselle Cooley Reason for Consultation: ? esophageal stricture History of Present Illness Patient is a 88 year old female seen for possible esophageal stricture. She presented to ED yesterday w confusion. Recently admitted for infected L hip wound (Pseudomonas), currently on Cefepime. WBC 11 on presentation. Cr rising now 2.6. Ammonia leve was [address] negative for acute changes. This AM pt is awake, alert and answering questions appropriately. She has been c/o chronic dysphagia, seen in outpt GI clinic by Dr. Cooley and HASEEB Kelley previously. She has trouble with food sticking in mid neck area. Can swallow soft foods well. Has trouble with big pills being stuck as well. Denies any painful swallowing. She feels neck is swollen sometimes. It was also noted on admission H&P that there are reports of "white stuff" on mouth. Has improvement of dysphagia previously with esophageal dilation. Last EGD w dilation done on 04/18/[address] Bosch w/o improvement of dysphagia symptoms. Esophagus and stomach exams were unremarkable then. She denies any associated n/v, abd pain. She does c/o constipation, on Colace 100mg BID now. She had been evaluated by speech therapist and recommended to be on slipper, dental soft diet. Past Medical/Surgical History Medical Problems: (1) Altered mental status Status: Acute (2) Failure of outpatient treatment Status: Acute (3) Pseudomonas aeruginosa infection Status: Acute (4) Shortness of breath Status: Acute (5) Thrush Status: Acute (6) Wound of skin Status: Acute Past Medical History: See above, also HTN, chronic diastolic HF, CAD s/p stent placement, PVD, Afib on Coumadin, DM II, CKD. Past Surgical History: As above, also hysterectomy, ganglion cyst removal, cholecystectomy Family History Diabetes mellitus BROTHER SON Heart disease MOTHER (Heart Valve disorder, age 72) SISTER ( of [place] at age 63) Hypertension SON Simple silicosis FATHER ( at 56) Social History Smoking Status: Never Smoker Drug Use: none Marital Status: Occupation Status: retired Allergies Coded Allergies: Clofibrate (Verified Allergy, Severe, SWELLING, 05/13/18) SWELLING Rabeprazole (Verified Allergy, Intermediate, SOB/COUGHING AND THROAT FELT TIGHT/ABD. CRAMPING, 05/13/18) Fexofenadine (Verified Allergy, Mild, RASH, 05/13/18) Fibrates (Verified Allergy, Mild, SWELLING, 05/13/18) Fluvastatin (Verified Allergy, Mild, HIVES, 05/13/18) Metformin (Verified Allergy, Mild, URINARY FREQUENCY/RASH/ITCH, 05/13/18) URINARY FREQUENCY Morphine and Related (Verified Allergy, Mild, ITCHY/HIVES, 05/13/18) Moxifloxacin (Verified Allergy, Mild, ITCHY/NAUSEA, 05/13/18) Penicillins (Verified Allergy, Mild, HIVES, 05/13/18) (PER GEIGINGER NOTES, TOLERATES AMOXICILLIN FINE) Quinolones (Verified Allergy, Mild, RASH, 05/13/18) Chlorpropamide (Verified Allergy, Unknown, UNKNOWN, 05/13/18) NSAIDs (Verified Allergy, Unknown, UNKNOWN, 05/13/18) Sulfa Drugs (Verified Allergy, Unknown, UNKNOWN, 05/13/18) CI Pigment Blue 63 (Verified Adverse Reaction, Mild, MYALGIAS AND CRAMPS, 05/13/18) Codeine (Verified Adverse Reaction, Mild, FEELS "HIGH" ON/ITCHING, 05/13/18 ) FEELS "HIGH" ON Dexlansoprazole (Verified Adverse Reaction, Mild, MYALGIAS AND CRAMPS, ) Gemfibrozil (Verified Adverse Reaction, Mild, ABDOMINAL CRAMPS AND DIZZINESS, 05/13/18) ABDOMINAL CRAMPS Lisinopril (Verified Adverse Reaction, Mild, COUGH, 05/13/18) Lorazepam (Verified Adverse Reaction, Mild, 0, 05/14/18) confusion Rofecoxib (Verified Adverse Reaction, Mild, INDIGESTION, 05/13/18) INDIGESTION Current Medications Home Meds and Scripts Medications Dose Route/Sig Max Daily Dose Days Date Category Dose Instructions Allevyn Gentle Border Lit (Wound Dressings) 1 Pad Pad 1 TD UD 05/13/18 Reported apply aquacel ag to left hip pressure ulcers cleanse wound with normal saline,pat dry,apply skin pre an dapply allevyn gentle border lite every 5 days and prn. Hydrocortisone 90 Appln/30 Gm Cr 1 Appln TOP UD 05/13/18 Reported apply thin layer of cream along left hip incision before application of allevyn q 3 days Zinc Oxide (Zinc Oxide (Topical)) 20 % Oin 1 Appln TOP QS 05/13/18 Reported apply to buttocks begin 05/09/18 end 05/29/18 Tylenol (Acetaminophen) 325 Mg Tab 650 Mg PO Q4 PRN 05/13/18 Reported use for temp > 100 do not exceed 3000mg/24hr Tylenol (Acetaminophen) 325 Mg Tab 650 Mg PO Q4 PRN 05/13/18 Reported do not exceed 3000mg/24hr Anusol-Hc 2.5% (Hydrocortisone 2.5% (Rectal)) 2.5 % Cre 1 Appln TOP TID PRN 05/13/18 Reported apply to rectal hemorrhoids as needed for discomfort Basaglar Kwikpen (Insulin Glargine) 100 Unit/Ml Inj 20 Units SQ DAILY 05/13/18 Reported Ativan (Lorazepam) 0.5 Mg Tab 0.25 Mg PO TID PRN 05/13/18 Reported 1/2 tablet dose Tubersol (Tuberculin Ppd) 5 Unit/0.1 Ml Inj 0.1 Ml ID UD 05/13/18 Reported ( 2nd ) step-administer 0.1 ml intradermal 7 days after 1st step Singulair (Montelukast Sodium) 10 Mg Tab 10 Mg PO DAILY 05/13/18 Reported Nutritional Supplement (Nutritional Supplements) 1 Liq Liq 90 Ml PO TID 05/13/18 Reported med pass supplement Norvasc (Amlodipine Besylate) 10 Mg Tab 10 Mg PO DAILY 05/13/18 Reported Maxipime (Cefepime Hcl) 2 Gm Inj 2 Gm IV DAILY 05/13/18 Reported 2 gm in 50 ml normal saline iv over 30 minutes daily start 05/10/18 end 05/17/18 Antacid (Miscellaneous) . 30 Ml PO AC 05/13/18 Reported Colace (Docusate Sodium) 100 Mg Cap 1 Cap PO BID 15 05/04/18 Reported Lasix (Furosemide) 20 Mg Tab 20 Mg PO BID 05/04/18 Reported TAKE AT LEAST 4 HOURS APART Losartan Potassium 25 Mg Tab 12.5 Mg PO DAILY 05/04/18 Reported 1/2 OF A 25 MG TABLET Calcitriol 0.5 Mcg Cap 0.5 Mcg PO DAILY 05/04/18 Reported Ventolin Hfa (Albuterol) 200 Puffs/11742 Mcg Aers 2 Puffs INH Q4 PRN 04/13/18 Reported Nystatin Cream (Nystatin) 90 Appln/30 Gm Cr 1 Appln EXT BID 01/25/17 Reported apply to bilateral groin end 05/29/18 Dymista (Azelastine Hcl-Fluticasone Pro) 1 Spr Spr 2 Blessing JACOBO BID 01/25/17 Reported Symbicort 160/4.5 Inhaler (Budesonide/Formoterol Fumarate) Aero 2 Puffs INH BID 09/21/16 Reported Lopressor (Metoprolol Tartrate) 25 Mg Tab 12.5 Mg PO BID 09/21/16 Reported 1/2 OF A 25 MG TABLET TWICE DAILY Aspirin Chewable (Aspirin) 81 Mg Chew 81 Mg PO QPM 08/31/15 Reported Singulair (Montelukast Sodium) 10 Mg Tab 10 Mg PO QAM 07/11/14 Reported Protonix (Pantoprazole Sodium) 40 Mg Tab 40 Mg PO QAM 07/11/14 Reported Review of Systems Constitutional: No fever ENT: + trouble swallowing, No pain on swallowing Respiratory: No cough, No shortness of breath Cardiac: No chest pain Abdomen: + constipation, No pain, No nausea, No vomiting Skin: No rash, No itch Physical Exam Date Time Temp Pulse Resp B/P (MAP) Pulse Ox O2 Delivery O2 Flow Rate FiO2 05/15/18 10:00 36.4 76 19 93 2.0 05/15/18 08:00 Room Air 05/15/18 07:36 36.4 76 19 171/84 (113) 93 Room Air 05/15/18 04:30 37.2 71 20 140/60 (86) 93 Room Air 05/14/18 23:05 37.3 75 20 123/39 (67) 91 Room Air 05/14/18 20:00 92 Room Air 05/14/18 19:18 37.6 70 26 148/84 (105) 92 Room Air 05/14/18 13:01 62 16 154/59 (90) 95 Room Air 05/14/18 12:00 36.6 64 16 139/77 (97) 100 Nasal Cannula 2.0 General Appearance: WD/WN, no apparent distress Eyes: normal inspection, PERRL, EOMI ENT: pharynx normal, + pertinent finding (whitish coating on tongue. ) Neck: supple, no JVD, trachea midline Respiratory/Chest: normal breath sounds, no respiratory distress, no accessory muscle use Cardiovascular: regular rate, rhythm, no gallop, no murmur Abdomen: normal bowel sounds, non tender, soft Extremities: normal inspection, no pedal edema, no calf tenderness Neurologic/Psych: alert, normal mood/affect, oriented x 3 Skin: normal color, no jaundice, no rash Laboratory Results Last 24 Hours Test 05/14/18 11:11 05/14/18 16:09 05/14/18 20:36 05/15/18 06:08 Bedside Glucose 155 mg/dl 233 mg/dl 183 mg/dl Prothrombin Time 32.1 SECONDS Prothromb Time International Ratio 3.1 Sodium Level 141 mmol/L Potassium Level 3.7 mmol/L Chloride Level 105 mmol/L Carbon Dioxide Level 28 mmol/L Anion Gap 8.0 mmol/L Blood Urea Nitrogen 62 mg/dl Creatinine 2.65 mg/dl Est Creatinine Clear Calc Drug Dose 16.6 ml/min Estimated GFR () 18.1 Estimated GFR (Non- 15.6 BUN/Creatinine Ratio 23.4 Random Glucose 144 mg/dl Calcium Level 9.3 mg/dl Test 05/15/18 07:20 Bedside Glucose 148 mg/dl Impression Patient is a 88 year old female seen for possible esophageal stricture. She has chronic issues of dysphagia, previously improved w empiric dilation of esophagus during EGD procedures. However symptoms not improved after dilation done on 04/18/18. Esophagus and stomach exams are grossly normal otherwise. On exam today may have thrush on tongue. Plan - No indication for repeat EGD - Will obtain UGI series to r/o esophageal dysmotility, diverticulum - Start Nystatin 5mL QID for thrush. - Advance diet per ST recommendations. Continue eval and treatment w ST - Another consideration is Neurology eval for neurogenic causes of dysphagia if confusion & difficulty swallowing continues. - Will consider esophageal manometry study in the future once she is DC'd if symptoms persist I saw and evaluated the patient. We are consulted for evaluation of recurrent dysphagia The patient has long history of difficulty swallowing and recently had an upper endoscopy with in late March were a large diameter dilation was performed. Of note he saw no obvious cause of her symptoms during the examination. Patient reports having some solids and occasionally tablets. She has been seen by speech pathology in the past was suggested have a slippery diet. Physical examination No obvious distress, pleasant appearing elderly female No scleral icterus noted Impression: Patient with recurrent solid food dysphagia with a negative endoscopic evaluation. Given this in the recent dilation there is no obvious role of a repeat endoscopic evaluation or dilation for the present time. Her symptoms do not appear to be esophageal in nature and are likely related to transfer dysphagia. Perhaps the patient would benefit from an upper GI series. If this is negative for evidence of achalasia or a Zenker's diverticulum I would suggest further evaluation with speech pathology and perhaps ENT or neurology. Recommendations Consider an upper GI series If upper GI series is negative would suggest further evaluation with speech pathology and perhaps ENT. Please call with any questions or concerns
[2018-05-15] MEDS: NYSTATIN SUSP 500,000 U/5 ML UDC PO SCH ×3 (12:58→21:00)
--- NOTE | 2018-05-15 15:58 | Progress Note ---
Progress Note Date of Service May 15, 2018. Progress Note Subjective Patient seen and examined at bedside. She cannot tell hospitalist the course of her previous hospital stay and subsequent discharge to [facility]. Patient's family at bedside did report that her memory and cognition appears better but they report that the patient's memory is not at baseline. Patient denies headache or chest pain or shortness of breath or abdominal pain. Patient was transferred from telemetry pederson to medical pederson. Patient has chronic atrial fibrillation Physical Exam General: obese Neck: No JVD Lungs: lungs clear, normal breath sounds, no respiratory distress, no accessory muscle use Heart: rate controlled, irregular rhythm Abdomen: soft, nontender, nondistended Neurology: awake, verbal, responds to questions Assessment and Plan This is an 88 year old female with a past medical history of insulin dependent DM2, chronic atrial fibrillation on long-term anticoagulation, CKD stage 4, chronic diastolic CHF, CAD, PVD, anemia of chronic disease, hyperparathyroidism and obesity - presents with confusion; dysphagia Altered mental status Admission CT head negative Confusion appears to be resolving as per patient's family member However concern whether there is still memory deficits - continue to monitor it is unclear as to what initially led to the confusion at [facility] during which patient was on IV antibiotic of Cefepime Infected Hip Wound Ulceration patient had been on Cefepime from previous hospital admission and last dose is due on 05/17/18 patient no longer has midline which was placed from previous admission since it was pulled out by her when the mental status was presumed to be worse continue Cefepime last dose to be on 05/17 Dysphagia; hx. of esophageal stricture s/p esophageal dilatation -Speech Therapy Discharge Instructions It is recommended that the patient continue a SLIPPERY Dental Soft diet upon discharge. This diet includes avoiding foods that are "pasty", "doughy", thick or dry, adding condiments or extra sauce/gravy to foods to make the moist/wet/slippery in texture, and choosing softer foods that will be easy for the patient to chew without dentures. It is recommended that the patient utilize the following aspiration/GERD precautions: Straws are okay to use; the patient should be sitting FULLY upright during and for up to 30 minutes following meals; the head of bed should be elevated to 30 degrees at ALL TIMES to unclude while sleeping; the patient should alternate liquids and solids during meals (one sip for every bite of food); the patient should take her time while eating to allow food to move through her esophagus; and she should take small bites and sips. Drinking a warm beverage before or during meals is also suggested. - GI service recommended swallowing studies Insulin Dependent DM2 - continue Lantus and sliding scale - monitor BSGs Chronic Atrial Fibrillation - continue b-abi - history of coumadin use -INR on 05/15/18 is 3.1. will continue to hold coumadin for now DVT ppx - Coumadin, INR goal of 2-3 FULL CODE
[2018-05-15] MEDS: ASPIRIN 81 MG CHEW PO SCH (21:06)
[2018-05-16] MEDS: CEFEPIME IV 2,000 MG in SYRINGE 7.5 ML IV SCH (05:16)
[2018-05-16 07:15] VITALS: BP 174/75; PULSE 84; TEMP 37.2; O2SAT 92
[2018-05-16] MEDS: INSULIN ASPART 100 UNITS/ML 3 ML PEN SC SCH ×4 (07:15→21:44)
[2018-05-16 07:30] VITALS: O2SAT 92
[2018-05-16 07:33] LABS: INR 3.1 (0.9-1.1)
[2018-05-16 07:54] LABS: CALCIUM 9.7 mg/dl (8.5-10.1); CREATININE 2.45 mg/dl (0.60-1.20); POTASSIUM 3.6 mmol/L (3.5-5.1)
[2018-05-16] MEDS: AMLODIPINE BESYLATE 5 MG TAB PO SCH (08:05)
[2018-05-16] MEDS: DOCUSATE SODIUM 100 MG CAP PO SCH ×2 (08:05→21:40)
[2018-05-16] MEDS: SODIUM CHLORIDE 0.9% 1000ML 1,000 ML IV SCH (08:05)
[2018-05-16] MEDS: NYSTATIN SUSP 500,000 U/5 ML UDC PO SCH ×4 (08:05→21:45)
[2018-05-16] MEDS: PANTOprazole SOD 40 MG TAB PO SCH (08:05)
[2018-05-16] MEDS: METOPROLOL TARTRATE 25 MG TAB PO SCH ×2 (08:05→21:41)
[2018-05-16] MEDS: MONTELUKAST SOD 10 MG TAB PO SCH (08:06)
[2018-05-16] MEDS: INSULIN GLARGINE SOLOSTAR 100 UNITS/ML 3 ML PEN SQ SCH ×2 (08:11→21:45)
[2018-05-16 09:31] VITALS: BP 138/67; PULSE 77; TEMP 36.8; O2SAT 90
[2018-05-16] MEDS ORDERED: NURSING DECISION MEDICATION ORDER SCH (10:00)
[2018-05-16] MEDS ORDERED: MICONAZOLE NITRATE POWDER 43 GM EXT PRN (10:15)
--- NOTE | 2018-05-16 10:48 | Progress Note ---
Progress Note Date of Service May 16, 2018. Progress Note GI short note: I was contacted by Radiology yesterday - pt unable to stand for prolonged period of time enough to complete UGI series. Recommended to have video swallow study instead. This is already ordered, awaiting Speech Therapy to perform. Will f/u results once completed.
--- NOTE | 2018-05-16 12:34 | DIAGNOSTIC IMAGING REPORT ---
VIDEO SWALLOW CLINICAL HISTORY: dysphagia COMPARISON STUDY: Modified barium swallow January 19, 2017. Fluoroscopy time: 3.3 minutes. FINDINGS: Cine fluoroscopic imaging was performed. No penetration or aspiration was noted within liquids, nectar thick liquids, honey thick liquids or pudding consistencies. Mild residual were noted within the vallecula. IMPRESSION: 1. No tracheal aspiration. 2. Full recommendations by speech pathology to follow. Electronically signed by: Declan Person M.D. 05/16/2018 12:33 PM Dictated Date/Time: 05/16/2018 12:31 PM
--- NOTE | 2018-05-16 14:32 | Progress Note ---
Progress Note Date of Service May 16, 2018. Progress Note Subjective Patient seen and examined at bedside. She reports that she is in hospital in [facility]. She denies acute pain. She denies shortness of breath. Patient has been behaving appropriately as per nursing staff Physical Exam General: obese Neck: No JVD Lungs: lungs clear, normal breath sounds, no respiratory distress, no accessory muscle use Heart: rate controlled, irregular rhythm Abdomen: soft, nontender, nondistended Neurology: awake, verbal, responds to questions Assessment and Plan This is an 88 year old female with a past medical history of insulin dependent DM2, chronic atrial fibrillation on long-term anticoagulation, CKD stage 4, chronic diastolic CHF, CAD, PVD, anemia of chronic disease, hyperparathyroidism and obesity - presents with confusion; dysphagia Altered mental status Admission CT head negative Confusion appears to be resolving it is unclear as to what initially led to the confusion at [facility] during which patient was on IV antibiotic of Cefepime Infected Hip Wound Ulceration patient had been on Cefepime from previous hospital admission and last dose is due on 05/17/18 patient no longer has midline which was placed from previous admission since it was pulled out by her when the mental status was presumed to be worse continue Cefepime last dose to be on 05/17 Dysphagia; hx. of esophageal stricture s/p esophageal dilatation -Speech Therapy services evaluated the patient -GI service recommended swallowing studies -videofluoroscopy No tracheal aspiration JOANN on CKD -on admission creatinine was 2 with subsequent rise to 2.65 -after being on IV fluids, creatinine is downtrending to 2.45 -continue IV fluids Insulin Dependent DM2 - continue Lantus and sliding scale - monitor BSGs Chronic Atrial Fibrillation - continue b-abi - history of coumadin use -INR on 05/15/18 is 3.1. INR on 05/16/18 remains 3.1. will continue to hold coumadin for now DVT ppx - Coumadin, INR goal of 2-3 FULL CODE
[2018-05-16 15:30] VITALS: BP 172/74; PULSE 92; TEMP 36.6; O2SAT 95
[2018-05-16] MEDS: ASPIRIN 81 MG CHEW PO SCH (21:45)
[2018-05-16 23:58] VITALS: BP 146/65; PULSE 75; TEMP 37.2; O2SAT 92
[2018-05-17] MEDS: SODIUM CHLORIDE 0.9% 1000ML 1,000 ML IV SCH (01:18)
[2018-05-17] MEDS ORDERED: NURSING VERBAL MED ORDER ONE (01:30)
[2018-05-17] MEDS: CEFEPIME IV 2,000 MG in SYRINGE 7.5 ML IV SCH (05:56)
[2018-05-17] MEDS: INSULIN ASPART 100 UNITS/ML 3 ML PEN SC SCH ×2 (06:30→12:34)
[2018-05-17 07:11] LABS: BASO % 0.5 %; BASO ABS # 0.04 K/uL (0-0.2); EOS % 1.5 %; EOS ABS # 0.13 K/uL (0-0.5); HEMATOCRIT 30.1 % (37-47); HEMOGLOBIN 9.5 g/dL (12.0-16.0); IG# 0.02 K/uL (0.00-0.02); LYMPH % 14.1 %; LYMPH ABS # 1.22 K/uL (1.2-3.4); MEAN CELL VOLUME 86.7 fL (80-100); MEAN CORPUSCULAR HEMOGLOBIN 27.4 pg (25-34); MEAN CORPUSCULAR HGB CONC 31.6 g/dl (32-36); MONO % 6.5 %; MONO ABS # 0.56 K/uL (0.11-0.59); NEUT % 77.2 %; NEUT ABS # 6.71 K/uL (1.4-6.5); PLATELET COUNT 207 K/uL (130-400); RED CELL DISTRIBUTION WIDTH CV 16.2 % (11.5-14.5); RED CELL DISTRIBUTION WIDTH SD 51.6 fL (36.4-46.3); WHITE BLOOD COUNT 8.68 K/uL (4.8-10.8)
[2018-05-17 07:29] VITALS: BP 171/74; PULSE 92; TEMP 37.2; O2SAT 92
[2018-05-17 07:33] LABS: INR 2.9 (0.9-1.1)
[2018-05-17 07:49] LABS: ALBUMIN 2.2 gm/dl (3.4-5.0); CALCIUM 9.3 mg/dl (8.5-10.1); CREATININE 2.23 mg/dl (0.60-1.20); POTASSIUM 3.6 mmol/L (3.5-5.1); TOTAL PROTEIN 6.8 gm/dl (6.4-8.2)
[2018-05-17 08:10] VITALS: O2SAT 92
[2018-05-17] MEDS: NYSTATIN SUSP 500,000 U/5 ML UDC PO SCH ×2 (08:29→12:32)
[2018-05-17] MEDS: METOPROLOL TARTRATE 25 MG TAB PO SCH (08:29)
[2018-05-17] MEDS: MONTELUKAST SOD 10 MG TAB PO SCH (08:29)
[2018-05-17] MEDS: PANTOprazole SOD 40 MG TAB PO SCH (08:29)
[2018-05-17] MEDS: AMLODIPINE BESYLATE 5 MG TAB PO SCH (08:30)
[2018-05-17] MEDS: DOCUSATE SODIUM 100 MG CAP PO SCH (08:30)
[2018-05-17] MEDS: INSULIN GLARGINE SOLOSTAR 100 UNITS/ML 3 ML PEN SQ SCH (08:33)
[2018-05-17] MEDS ORDERED: INSULIN GLARGINE SOLOSTAR 100 UNITS/ML 3 ML PEN SQ SCH (09:00)
[2018-05-17] MEDS ORDERED: WARFARIN SOD 2 MG TAB PO STA (09:56)
--- NOTE | 2018-05-17 11:49 | Progress Note ---
Progress Note Date of Service May 17, 2018. (Marai Elena Brown CRNP) Progress Note GI short note: Pt f/u for dysphagia. Completed Video swallow eval yesterday. No aspiration noted. She does have esophageal dysmotility w oral dysphagia, delayed transfer of food to posterior mouth which ST noted may be anxiety related or fear of not being able to swallow food. Recommended to be on MS, slippery diet w thin liquids, possible downgrade to puree, aspiration and GERD precautions. Pt seen up in bed, taking a nap, easily woken up when name called. Tolerated diet this AM w/o abd pain, n/v, swallowing well. She is going to be transferred to [place] today. VS, labs reviewed. Exam: Awake, oriented to self mostly HR regular no murmur or gallops Chest slightly diminished bilaterally Abd soft, non tender, BS present RECS: - No new GI plans; pt wouldn't benefit from repeat EGD w dilation - Continue diet per ST recommendations. - Consider ENT or Neurology eval in the future if dysphagia continues (Maria Elena Brown CRNP) I saw and evaluated the patient with Ms. Brown agree with her assessment as above. The patient's swallowing study does not seem to indicate an esophageal nature of her dysphagia. It appears the patient does have transfer dysphagia. I would suggest continued follow-up with speech pathology. If further guidance is needed perhaps the patient would benefit from an ear nose and throat evaluation. Please call with any additional questions or concerns (Gisselle Cooley, )
--- NOTE | 2018-05-17 12:05 | Progress Note ---
Internal Med Progress Note Date of Service: May 17, 2018. Provider Documentation: Subjective Patient seen and examined at bedside. She denies acute pain. She denies shortness of breath. She denies problems with urination or bowel movements Physical Exam General: obese Neck: No JVD Lungs: lungs clear, normal breath sounds, no respiratory distress, no accessory muscle use Heart: rate controlled, irregular rhythm Abdomen: soft, nontender, nondistended Neurology: awake, verbal, responds to questions ASSESSMENT & PLAN: Hospital Course and Discharge Plans This is an 88 year old female with a past medical history of insulin dependent DM2, chronic atrial fibrillation on long-term anticoagulation, CKD stage 4, chronic diastolic CHF, CAD, PVD, anemia of chronic disease, hyperparathyroidism and obesity - presents with confusion; dysphagia Altered mental status Admission CT head negative Confusion appears to be resolving it is unclear as to what initially led to the confusion at [facility] during which patient was on IV antibiotic of Cefepime mental status has improved during hospital stay and patient finished last dose of 2 week course of cefepime on 05/17/18 Infected Hip Wound Ulceration patient had been on Cefepime from previous hospital admission and last dose is due on 05/17/18 patient no longer has midline which was placed from previous admission since it was pulled out by her when the mental status was presumed to be worse patient finished last dose of 2 week course of cefepime on 05/17/18 Dysphagia; hx. of esophageal stricture s/p esophageal dilatation -Speech Therapy services evaluated the patient -GI service recommended swallowing studies -videofluoroscopy No tracheal aspiration Discharge speech recommendations 1. Mechanical soft slippery diet with thin liquids 2. Downgrade to puree if pt. is not consuming adequate amounts of mechanical soft food items. 3. Aspiration precautions alternate consistencies, make sure pt. is alert and awake befire feeding 4. GERD precautions upright for all intake, remain upright for 30 min after all intake, no intake 30 min before bed, keep head of bed elevated at least 30 degrees at all times even for sleep JOANN on CKD -on admission creatinine was 2 with subsequent rise to 2.65 -after being on IV fluids, creatinine has downtrended to 2.23 -IV fluids stopped on 05/17/18 -patient can resume home dose Losartan -patient to be discharged on reduced dose of Lasix as Lasix 20 mg daily instead of BID Hypertension -on amlodipine 10 mg daily -can resume Losartan history of chronic diastolic CHF -patient did not have breathing difficulties hwen she was off the Lasix due to JOANN -patient to be discharged on reduced dose of Lasix as Lasix 20 mg daily instead of BID Insulin Dependent DM2 -Patient to be discharged on reduced dose of Glargine as 10 units daily rather than 28 units daily to avoid hypoglycemia Chronic Atrial Fibrillation - continue Metoprolol - history of coumadin use -during hospital tsay patient's INR has been high normal levels of INR or mildly supratherapeutic with INR 3.1 on 05/15/18 to 05/16/18 despite having coumadin held. INR is 2.9 on 05/17/18. 2 mg of coumadin given on 05/17/18. Patient should resume outpatient regimen as coumadin 2mg daily starting on and needs follow up INR check and has appointment for 05/18/2018 6:15 PM [facility], [facility] Discharge Instructions Patient is discharged with prescriptions for reduced Lasix and Coumadin and Glargine insulin dosing Follow up with 05/18/2018 6:15 PM [facility], [facility] 05/23/2018 11:00 AM Kylah Carroll MD Internal Medicine [facility] 05/29/2018 2:40 PM Jessica Sutton PA-C Internal Medicine [facility] 06/07/2018 11:45 AM Estefanía Cooley MD General Surgery, [facility] 06/12/2018 3:00 PM John Goldstein DO Cardiology [facility] 06/18/2018 10:00 AM Deandra Heredia PA-C Allergy/Immunology [facility] 06/28/2018 11:10 AM Wendie Samaniego MD Nephrology [facility] Discharge speech recommendations 1. Mechanical soft slippery diet with thin liquids 2. Downgrade to puree if pt. is not consuming adequate amounts of mechanical soft food items. 3. Aspiration precautions alternate consistencies, make sure pt. is alert and awake befire feeding 4. GERD precautions upright for all intake, remain upright for 30 min after all intake, no intake 30 min before bed, keep head of bed elevated at least 30 degrees at all times even for sleep Vital Signs: Date Time Temp Pulse Resp B/P (MAP) Pulse Ox O2 Delivery O2 Flow Rate FiO2 05/17/18 08:10 92 Room Air 05/17/18 07:29 37.2 92 18 171/74 (106) 92 Room Air 05/17/18 00:00 Room Air 05/16/18 23:58 37.2 75 20 146/65 (92) 92 Room Air 05/16/18 16:10 Room Air 05/16/18 15:30 36.6 92 20 172/74 (106) 95 Room Air Lab Results: Results Past 24 Hours Test 05/16/18 16:41 05/16/18 20:18 05/17/18 06:28 05/17/18 07:46 Range/Units Bedside Glucose 265 200 164 70-90 mg/dl White Blood Count 8.68 4.8-10.8 K/uL Red Blood Count 3.47 4.2-5.4 M/uL Hemoglobin 9.5 12.0-16.0 g/dL Hematocrit 30.1 37-47 % Mean Corpuscular Volume 86.7 80-100 fL Mean Corpuscular Hemoglobin 27.4 25-34 pg Mean Corpuscular Hemoglobin Concent 31.6 32-36 g/dl Platelet Count 207 130-400 K/uL Mean Platelet Volume 10.0 7.4-10.4 fL Neutrophils (%) (Auto) 77.2 % Lymphocytes (%) (Auto) 14.1 % Monocytes (%) (Auto) 6.5 % Eosinophils (%) (Auto) 1.5 % Basophils (%) (Auto) 0.5 % Neutrophils # (Auto) 6.71 1.4-6.5 K/uL Lymphocytes # (Auto) 1.22 1.2-3.4 K/uL Monocytes # (Auto) 0.56 0.11-0.59 K/uL Eosinophils # (Auto) 0.13 0-0.5 K/uL Basophils # (Auto) 0.04 0-0.2 K/uL RDW Standard Deviation 51.6 36.4-46.3 fL RDW Coefficient of Variation 16.2 11.5-14.5 % Immature Granulocyte % (Auto) 0.2 % Immature Granulocyte # (Auto) 0.02 0.00-0.02 K/uL Prothrombin Time 29.6 9.0-12.0 SECONDS Prothromb Time International Ratio 2.9 0.9-1.1 Sodium Level 142 136-145 mmol/L Potassium Level 3.6 3.5-5.1 mmol/L Chloride Level 109 98-107 mmol/L Carbon Dioxide Level 24 21-32 mmol/L Anion Gap 9.0 3-11 mmol/L Blood Urea Nitrogen 62 7-18 mg/dl Creatinine 2.23 0.60-1.20 mg/dl Est Creatinine Clear Calc Drug Dose 20.1 ml/min Estimated GFR () 22.2 Estimated GFR (Non- 19.2 BUN/Creatinine Ratio 27.7 10-20 Random Glucose 155 70-99 mg/dl Calcium Level 9.3 8.5-10.1 mg/dl Total Bilirubin 0.3 0.2-1 mg/dl Aspartate Amino Transf (AST/SGOT) 12 15-37 U/L Alanine Aminotransferase (ALT/SGPT) 12 12-78 U/L Alkaline Phosphatase 73 45-117 U/L Total Protein 6.8 6.4-8.2 gm/dl Albumin 2.2 3.4-5.0 gm/dl Globulin 4.6 2.5-4.0 gm/dl Albumin/Globulin Ratio 0.5 0.9-2 Test 05/17/18 11:40 Range/Units Bedside Glucose 232 70-90 mg/dl
[2018-05-17] MEDS ORDERED: FURO-85 PO (12:09)
[2018-05-17] MEDS ORDERED: INSDGIPEN SQ (12:09)
[2018-05-17] MEDS ORDERED: CMD2 OR (12:16)
[2018-05-17] MEDS ORDERED: LOSARTAN POTASSIUM 25 MG TAB PO STA (12:36)
--- NOTE | 2018-05-17 12:45 | Discharge Instructions ---
Discharge Instructions Date of Service May 17, 2018. Admission Reason for Admission: Delirium Discharge Discharge Diagnosis / Problem: Altered mental status possibly from delirium, acute kidney Injury, IV abx Discharge Goals Goal(s): Improve disease control Activity Recommendations Activity Limitations: per Instructions/Follow-up section . Instructions / Follow-Up Instructions / Follow-Up Hospital Course and Discharge Plans This is an 88 year old female with a past medical history of insulin dependent DM2, chronic atrial fibrillation on long-term anticoagulation, CKD stage 4, chronic diastolic CHF, CAD, PVD, anemia of chronic disease, hyperparathyroidism and obesity - presents with confusion; dysphagia Altered mental status Admission CT head negative Confusion appears to be resolving it is unclear as to what initially led to the confusion at [facility] during which patient was on IV antibiotic of Cefepime mental status has improved during hospital stay and patient finished last dose of 2 week course of cefepime on 05/17/18 Infected Hip Wound Ulceration patient had been on Cefepime from previous hospital admission and last dose is due on 05/17/18 patient no longer has midline which was placed from previous admission since it was pulled out by her when the mental status was presumed to be worse patient finished last dose of 2 week course of cefepime on 05/17/18 Dysphagia; hx. of esophageal stricture s/p esophageal dilatation -Speech Therapy services evaluated the patient -GI service recommended swallowing studies -videofluoroscopy No tracheal aspiration Discharge speech recommendations 1. Mechanical soft slippery diet with thin liquids 2. Downgrade to puree if pt. is not consuming adequate amounts of mechanical soft food items. 3. Aspiration precautions alternate consistencies, make sure pt. is alert and awake befire feeding 4. GERD precautions upright for all intake, remain upright for 30 min after all intake, no intake 30 min before bed, keep head of bed elevated at least 30 degrees at all times even for sleep JOANN on CKD -on admission creatinine was 2 with subsequent rise to 2.65 -after being on IV fluids, creatinine has downtrended to 2.23 -IV fluids stopped on 05/17/18 -patient can resume home dose Losartan -patient to be discharged on reduced dose of Lasix as Lasix 20 mg daily instead of BID Hypertension -on amlodipine 10 mg daily -can resume Losartan history of chronic diastolic CHF -patient did not have breathing difficulties hwen she was off the Lasix due to JOANN -patient to be discharged on reduced dose of Lasix as Lasix 20 mg daily instead of BID Insulin Dependent DM2 -Patient to be discharged on reduced dose of Glargine as 10 units daily rather than 28 units daily to avoid hypoglycemia Chronic Atrial Fibrillation - continue Metoprolol - history of coumadin use -during hospital tsay patient's INR has been high normal levels of INR or mildly supratherapeutic with INR 3.1 on 05/15/18 to 05/16/18 despite having coumadin held. INR is 2.9 on 05/17/18. 2 mg of coumadin given on 05/17/18. Patient should resume outpatient regimen as coumadin 2mg daily starting on and needs follow up INR check and has appointment for 05/18/2018 6:15 PM [facility], [facility] Discharge Instructions Patient is discharged with prescriptions for reduced Lasix and Coumadin and Glargine insulin dosing Follow up with 05/18/2018 6:15 PM [facility], [facility] 05/23/2018 11:00 AM Kylah Carroll MD Internal Medicine [facility] 05/29/2018 2:40 PM Jessica Sutton PA-C Internal Medicine [facility] 06/07/2018 11:45 AM Estefanía Cooley MD General Surgery, [facility] 06/12/2018 3:00 PM John Goldstein DO Cardiology [facility] 06/18/2018 10:00 AM Deandra Heredia PA-C Allergy/Immunology [facility] 06/28/2018 11:10 AM Wendie Samaniego MD Nephrology [facility] Discharge speech recommendations 1. Mechanical soft slippery diet with thin liquids 2. Downgrade to puree if pt. is not consuming adequate amounts of mechanical soft food items. 3. Aspiration precautions alternate consistencies, make sure pt. is alert and awake befire feeding 4. GERD precautions upright for all intake, remain upright for 30 min after all intake, no intake 30 min before bed, keep head of bed elevated at least 30 degrees at all times even for sleep Current Hospital Diet Patient's current hospital diet: Diabetes Type 2 Diet Discharge Diet Recommended Diet: Diabetes Type 2 Diet Pending Studies Studies pending at discharge: no Laboratory Results 05/17/18 06:28 Red Blood Count 3.47, Mean Corpuscular Volume 86.7, Mean Corpuscular Hemoglobin 27.4, Mean Corpuscular Hemoglobin Concent 31.6, Mean Platelet Volume 10.0, Neutrophils (%) (Auto) 77.2, Lymphocytes (%) (Auto) 14.1, Monocytes (%) (Auto) 6.5, Eosinophils (%) (Auto) 1.5, Basophils (%) (Auto) 0.5, Neutrophils # (Auto) 6.71, Lymphocytes # (Auto) 1.22, Monocytes # (Auto) 0.56, Eosinophils # (Auto) 0.13, Basophils # (Auto) 0.04 05/17/18 06:28 Test 05/13/18 21:30 05/13/18 22:15 05/14/18 00:14 05/14/18 06:11 Direct Bilirubin 0.2 mg/dl (0-0.2) Troponin I 0.030 ng/ml (0-0.045) Thyroid Stimulating Hormone (TSH) 0.782 uIu/ml (0.300-4.500) Urine Color YELLOW Urine Appearance CLEAR (CLEAR) Urine pH 5.0 (4.5-7.5) Urine Specific [place] 1.013 (1.000-1.030) Urine Protein 2+ (NEG) Urine Glucose (UA) NEG (NEG) Urine Ketones NEG (NEG) Urine Occult Blood 1+ (NEG) Urine Nitrite NEG (NEG) Urine Bilirubin NEG (NEG) Urine Urobilinogen NEG (NEG) Urine Leukocyte Esterase NEG (NEG) Urine WBC (Auto) 0 /hpf (0-5) Urine RBC (Auto) 0-4 /hpf (0-4) Urine Hyaline Casts (Auto) 0 /lpf (0-5) Urine Epithelial Cells (Auto) 0-5 /lpf (0-5) Urine Bacteria (Auto) NEG (NEG) Ammonia < 10.0 umol/L (11-32) Activated Partial Thromboplast Time 44.4 SECONDS (21.0-31.0) Partial Thromboplastin Ratio 1.7 Test 05/17/18 06:28 05/17/18 11:40 White Blood Count 8.68 K/uL (4.8-10.8) Red Blood Count 3.47 M/uL (4.2-5.4) Hemoglobin 9.5 g/dL (12.0-16.0) Hematocrit 30.1 % (37-47) Mean Corpuscular Volume 86.7 fL (80-100) Mean Corpuscular Hemoglobin 27.4 pg (25-34) Mean Corpuscular Hemoglobin Concent 31.6 g/dl (32-36) Platelet Count 207 K/uL (130-400) Mean Platelet Volume 10.0 fL (7.4-10.4) Neutrophils (%) (Auto) 77.2 % Lymphocytes (%) (Auto) 14.1 % Monocytes (%) (Auto) 6.5 % Eosinophils (%) (Auto) 1.5 % Basophils (%) (Auto) 0.5 % Neutrophils # (Auto) 6.71 K/uL (1.4-6.5) Lymphocytes # (Auto) 1.22 K/uL (1.2-3.4) Monocytes # (Auto) 0.56 K/uL (0.11-0.59) Eosinophils # (Auto) 0.13 K/uL (0-0.5) Basophils # (Auto) 0.04 K/uL (0-0.2) RDW Standard Deviation 51.6 fL (36.4-46.3) RDW Coefficient of Variation 16.2 % (11.5-14.5) Immature Granulocyte % (Auto) 0.2 % Immature Granulocyte # (Auto) 0.02 K/uL (0.00-0.02) Prothrombin Time 29.6 SECONDS (9.0-12.0) Prothromb Time International Ratio 2.9 (0.9-1.1) Anion Gap 9.0 mmol/L (3-11) Est Creatinine Clear Calc Drug Dose 20.1 ml/min Estimated GFR () 22.2 Estimated GFR (Non- 19.2 BUN/Creatinine Ratio 27.7 (10-20) Calcium Level 9.3 mg/dl (8.5-10.1) Total Bilirubin 0.3 mg/dl (0.2-1) Aspartate Amino Transf (AST/SGOT) 12 U/L (15-37) Alanine Aminotransferase (ALT/SGPT) 12 U/L (12-78) Alkaline Phosphatase 73 U/L (45-117) Total Protein 6.8 gm/dl (6.4-8.2) Albumin 2.2 gm/dl (3.4-5.0) Globulin 4.6 gm/dl (2.5-4.0) Albumin/Globulin Ratio 0.5 (0.9-2) Bedside Glucose 232 mg/dl (70-90) Date/Time Source Procedure Growth Status 05/14/18 01:50 Nasal MRSA DNA Surveillance Screen - Final Specimen Positive for MRSA by DNA Probe Complete Hemoglobin A1c Test 05/05/18 05:47 Range/Units Estimated Average Glucose 148 mg/dl Hemoglobin A1c 6.8 H 4.5-5.6 % Medical Emergencies . Who to Call and When: Medical Emergencies: If at any time you feel your situation is an emergency, please call 911 immediately. . Non-Emergent Contact Non-Emergency issues call your: Primary Care Provider Call Non-Emergent contact if: you have any medication questions . . "Provider Documentation" section prepared by Meng Lang. .
--- NOTE | 2018-05-17 12:46 | Discharge Summary ---
Discharge Summary Date of Service May 17, 2018. 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, diabetes controlled Chronic Atrial Fibrillation anticoagulated on coumadin, INR monitoring Medication Reconciliation New Medications: Warfarin Sod (Coumadin) 2 Mg Tab 2 MG OR DAILY for 30 Days, #30 TAB Insulin Glargine (Lantus Solostar) 100 Unit/Ml Inj 10 UNITS SQ DAILY for 30 Days, #30 PEN Changed Medications: Furosemide (Lasix) 20 Mg Tab 20 MG PO DAILY for 30 Days, #30 TAB (Changed from: BID) TAKE AT LEAST 4 HOURS APART Continued Medications: Acetaminophen (Tylenol) 325 Mg Tab 650 MG PO Q4 PRN for Pain do not exceed 3000mg/24hr Acetaminophen (Tylenol) 325 Mg Tab 650 MG PO Q4 PRN for Fever use for temp > 100 do not exceed 3000mg/24hr Albuterol Hfa (Ventolin Hfa) 200 Puffs/12423 Mcg Aers 2 PUFFS INH Q4 PRN for SOB/Wheezing, #1 INHALER Amlodipine (Norvasc) 10 Mg Tab 10 MG PO DAILY, TAB Antacid (Antacid) . 30 ML PO AC Aspirin (Aspirin Chewable) 81 Mg Chew 81 MG PO QPM Azelastine Hcl-Fluticasone Pro (Dymista) 1 Spr Spr 2 SPRY JACOBO BID Budesonide/Formoterol Fumarate (Symbicort 160/4.5 Inhaler ) Aero 2 PUFFS INH BID, INHALER Calcitriol (Calcitriol) 0.5 Mcg Cap 0.5 MCG PO DAILY Docusate Sodium (Colace) 100 Mg Cap 1 CAP PO BID for 15 Days, #30 CAP Hydrocortisone (Hydrocortisone) 90 Appln/30 Gm Cr 1 APPLN TOP UD apply thin layer of cream along left hip incision before application of allevyn q 3 days Hydrocortisone 2.5% (Rectal) (Anusol-Hc 2.5%) 2.5 % Cre 1 APPLN TOP TID PRN for discomfort apply to rectal hemorrhoids as needed for discomfort Lorazepam (Ativan) 0.5 Mg Tab 0.25 MG PO TID PRN for Anxiety 1/2 tablet dose Losartan Potassium (Losartan Potassium) 25 Mg Tab 12.5 MG PO DAILY 1/2 OF A 25 MG TABLET Metoprolol Tartrate (Lopressor) (Lopressor) 25 Mg Tab 12.5 MG PO BID 1/2 OF A 25 MG TABLET TWICE DAILY Montelukast Sodium (Singulair) 10 Mg Tab 10 MG PO QAM Montelukast Sodium (Singulair) 10 Mg Tab 10 MG PO DAILY, TAB Nutritional Supplements (Nutritional Supplement) 1 Liq Liq 90 ML PO TID med pass supplement Nystatin (Nystatin Cream) 90 Appln/30 Gm Cr 1 APPLN EXT BID apply to bilateral groin end 05/29/18 Pantoprazole (Protonix) 40 Mg Tab 40 MG PO QAM Wound Dressings (Allevyn Gentle Border Lit) 1 Pad Pad 1 TD UD apply aquacel ag to left hip pressure ulcers cleanse wound with normal saline,pat dry,apply skin pre an dapply allevyn gentle border lite every 5 days and prn. Zinc Oxide (Topical) (Zinc Oxide) 20 % Oin 1 APPLN TOP QS apply to buttocks begin 05/09/18 end 05/29/18 Discontinued Medications: Cefepime Hcl (Maxipime) 2 Gm Inj 2 GM IV DAILY 2 gm in 50 ml normal saline iv over 30 minutes daily start 05/10/18 end 05/17/18 Insulin Glargine (Basaglar Kwikpen) 100 Unit/Ml Inj 20 UNITS SQ DAILY Tuberculin Ppd (Tubersol) 5 Unit/0.1 Ml Inj 0.1 ML ID UD ( 2nd ) step-administer 0.1 ml intradermal 7 days after 1st step Admission Information HPI (per Admitting provider): CHIEF COMPLAINT: Confusion as per records. HISTORY OF PRESENT ILLNESS: History obtained from the patient, family, records. Limited history from patient secondary to confusion. Medical history is significant for hypertension, chronic diastolic heart failure. coronary artery disease sp stenting, peripheral vascular disease as per records ; atrial fibrillation on Coumadin, DM2, insulin requiring, esophageal dysmotility as per records, chronic kidney disease (baseline creatinine of 1.6). Recent confinement last week for infected left hip wound ulceration (Pseudomonas on growth). IV Cefepime recommended for 2 weeks via PICC line, last dose 05/17/2018 as per discharge summary. Patient discharged to [facility] rehab/facilitation of IV antibiotics. As per [facility] rehab notes, patient is having issues with chronic dysphagia, throat burning, difficulty eating. No improvement with antacid regimen. No concerns from [facility] speech therapy as per notes. Lorazepam started for anxiety. Patient was subsequently noted to be more confused at the home in the last two days. Mechanical fall from leg weakness. No head trauma. Somewhat sleepy, poor appetite, having trouble swallowing. "White stuff" in the mouth noted. Patient denies chest pain, shortness of breath, abdominal pain. Tonight the patient pulled out her PICC line. Patient brought to the Emergency Room by family. At the ER, the patient noted to be coughing following with oral Nystatin order. MEDICAL HISTORY: As above. Most recent EGD from March 2018 showed no endoscopic abnormality to explain dysphagia, esophagus dilated. OPERATIONS: She has had cholecystectomy, hysterectomy, ganglion cyst removal. HOME MEDICATIONS: Include Coumadin, Colace, Lasix, fluticasone, Anusol, Losartan, Ventolin, aspirin, Symbicort, calcitriol, Metoprolol ALLERGIES: CHLORPROPAMIDE, CODEINE, GEMFIBROZIL, LISINOPRIL, METFORMIN, SIMVASTATIN, FEXOFENADINE, OMEPRAZOLE, ROFECOXIB, MOXIFLOXACIN, PENICILLIN, SULFA, QUINOLONE, NSAIDS, MORPHINE. FAMILY HISTORY: Could not be obtained. PERSONAL AND SOCIAL HISTORY: Could not be obtained. REVIEW OF SYSTEMS: Could not be obtained. Physical Exam (per Admitting): PHYSICAL EXAMINATION: VITAL SIGNS: Blood pressure was noted to be 180/75, later 160/99, pulse rate 84, RR 18, temperature 37, sats 94 on room air. GENERAL: Noted to be laconic, hard of hearing. Oriented to month. Obese. SKIN: Pallor, warm. HEENT: Bespectacled. Pale palpebral conjunctivae. No ptosis. White patches on the tongue. No posterior pharyngeal wall plaques. NECK: Short, supple. CHEST: Decreased breath sounds. No tenderness. HEART: Irregular, no murmur. ABDOMEN: Some distention, nontender. EXTREMITIES: Dressing on the left hip. Minimal LE edema, no tenderness. NEUROLOGIC: Coherent, but hard of hearing, but is oriented to month. No facial asymmetry. Gait and stance not assessed. Hospital Course Hospital Course and Discharge Plans This is an 88 year old female with a past medical history of insulin dependent DM2, chronic atrial fibrillation on long-term anticoagulation, CKD stage 4, chronic diastolic CHF, CAD, PVD, anemia of chronic disease, hyperparathyroidism and obesity - presents with confusion; dysphagia Altered mental status Admission CT head negative Confusion appears to be resolving it is unclear as to what initially led to the confusion at [facility] during which patient was on IV antibiotic of Cefepime mental status has improved during hospital stay and patient finished last dose of 2 week course of cefepime on 05/17/18 Infected Hip Wound Ulceration patient had been on Cefepime from previous hospital admission and last dose is due on 05/17/18 patient no longer has midline which was placed from previous admission since it was pulled out by her when the mental status was presumed to be worse patient finished last dose of 2 week course of cefepime on 05/17/18 Dysphagia; hx. of esophageal stricture s/p esophageal dilatation -Speech Therapy services evaluated the patient -GI service recommended swallowing studies -videofluoroscopy No tracheal aspiration Discharge speech recommendations 1. Mechanical soft slippery diet with thin liquids 2. Downgrade to puree if pt. is not consuming adequate amounts of mechanical soft food items. 3. Aspiration precautions alternate consistencies, make sure pt. is alert and awake befire feeding 4. GERD precautions upright for all intake, remain upright for 30 min after all intake, no intake 30 min before bed, keep head of bed elevated at least 30 degrees at all times even for sleep JOANN on CKD -on admission creatinine was 2 with subsequent rise to 2.65 -after being on IV fluids, creatinine has downtrended to 2.23 -IV fluids stopped on 05/17/18 -patient can resume home dose Losartan -patient to be discharged on reduced dose of Lasix as Lasix 20 mg daily instead of BID Hypertension -on amlodipine 10 mg daily -can resume Losartan history of chronic diastolic CHF -patient did not have breathing difficulties hwen she was off the Lasix due to JOANN -patient to be discharged on reduced dose of Lasix as Lasix 20 mg daily instead of BID Insulin Dependent DM2 -Patient to be discharged on reduced dose of Glargine as 10 units daily rather than 28 units daily to avoid hypoglycemia Chronic Atrial Fibrillation - continue Metoprolol - history of coumadin use -during hospital tsay patient's INR has been high normal levels of INR or mildly supratherapeutic with INR 3.1 on 05/15/18 to 05/16/18 despite having coumadin held. INR is 2.9 on 05/17/18. 2 mg of coumadin given on 05/17/18. Patient should resume outpatient regimen as coumadin 2mg daily starting on and needs follow up INR check and has appointment for 05/18/2018 6:15 PM [facility] Patient is discharged with prescriptions for reduced Lasix and Coumadin and Glargine insulin dosing Follow up with 05/18/2018 6:15 PM [facility], [facility] 05/23/2018 11:00 AM Kylah Carroll MD Internal Medicine [facility] 05/29/2018 2:40 PM Jessica Sutton PA-C Internal Medicine [facility] 06/07/2018 11:45 AM Estefanía Cooley MD General Surgery, [facility] 06/12/2018 3:00 PM John Goldstein DO Cardiology [facility] 06/18/2018 10:00 AM Deandra Heredia PA-C Allergy/Immunology [facility] 06/28/2018 11:10 AM Wendie Samaniego MD Nephrology [facility] Discharge speech recommendations 1. Mechanical soft slippery diet with thin liquids 2. Downgrade to puree if pt. is not consuming adequate amounts of mechanical soft food items. 3. Aspiration precautions alternate consistencies, make sure pt. is alert and awake befire feeding 4. GERD precautions upright for all intake, remain upright for 30 min after all intake, no intake 30 min before bed, keep head of bed elevated at least 30 degrees at all times even for sleep Total time spent on discharge = 40 minutes This includes examination of the patient, discharge planning, medication reconciliation, and communication with other providers. Discharge Instructions see above
[2018-05-17 13:47] VITALS: BP 171/74; PULSE 92; TEMP 37.2; O2SAT 92
== END 2018-05-17 17:58 | DRG 392 ==
LOC: EDBD 20:17 → C.EDA 20:18 → C.2T 23:49 → ENRESERV 05-14 00:06 → C.MSICU 05-14 05:54 → C.2E 05-14 15:45 → ENRESERV 05-15 09:12 → C.MS2W 05-15 10:38
PROVIDERS: ADMIT Internal Medicine; ATTEND Hospitalist
DX: R13.10 Dysphagia, unspecified (principal); I13.0 Hypertensive heart and chronic kidney disease with heart failure and stage 1 through stage 4 chronic kidney disease, or unspecified chronic kidney disease; N17.9 Acute kidney failure, unspecified; I50.32 Chronic diastolic (congestive) heart failure; B37.0 Candidal stomatitis; E11.22 Type 2 diabetes mellitus with diabetic chronic kidney disease; N18.4 Chronic kidney disease, stage 4 (severe); D63.1 Anemia in chronic kidney disease; I16.0 Hypertensive urgency; I25.10 Atherosclerotic heart disease of native coronary artery without angina pectoris; I48.2 Chronic atrial fibrillation; K21.9 Gastro-esophageal reflux disease without esophagitis; L89.222 Pressure ulcer of left hip, stage 2; R41.0 Disorientation, unspecified; Z79.82 Long term (current) use of aspirin; Z79.899 Other long term (current) drug therapy

== ENCOUNTER 2019-03-05 11:25 | Inpatient (IN) ==
[2019-03-05] MEDS ORDERED: FUROSEMIDE 40 MG/4 ML VIAL IV STA (11:56)
--- NOTE | 2019-03-05 12:20 | XRay Report ---
XR chest 1V portable HISTORY: 89 years-old Female Chest Pain acute atypical chest pain with shortness of breath COMPARISON: Chest radiograph 05/13/2018 TECHNIQUE: Portable AP view of the chest FINDINGS: Cardiac silhouette is mildly enlarged. 10 mm nodular opacity of the left midlung. Calcification of th e thoracic aortic arch. No pneumothorax. Small bilateral pleural effusions with bibasilar opacities. No overt pulmonary edema. Degenerative changes of the shoulders and spine. IMPRESSION: 1. Small bilateral pleural effusions with bibasilar opacities suggestive of atelectasis or pneumoniti s. 2. Mild cardiomegaly without overt pulmonary edema. 3. 10 mm left midlung opacity may reflect summation density from pulmonary vasculature. The above report was generated using voice recognition software. It may contain grammatical, syntax o r spelling errors. Electronically signed by: Beto Eddy M.D. 03/05/2019 12:19 PM
[2019-03-05 12:26] LABS: Basophils # (auto) 0.03 K/uL (0-0.2); Basophils % (auto) 0.4 %; Eosinophils # (auto) 0.26 K/uL (0-0.5); Eosinophils % (auto) 3.1 %; Hematocrit (blood only) 33.8 % (37-47); Hemoglobin 11.2 g/dL (12.0-16.0); Immature Granulocytes # (auto) 0.02 K/uL (0.00-0.02); Immature Granulocytes % (auto) 0.2 %; Lymphocytes # (auto) 1.62 K/uL (1.2-3.4); Lymphocytes % (auto) 19.1 %; Mean Corpuscular Hgb Conc 33.1 g/dL (32-36); Mean Corpuscular Volume 96.3 fL (80-100); Mean Platelet Volume 9.9 fL (7.4-10.4); Monocytes # (auto) 0.39 K/uL (0.11-0.59); Monocytes % (auto) 4.6 %; Neutrophils # (auto) 6.18 K/uL (1.4-6.5); Neutrophils % (auto) 72.6 %; Platelet Count 185 K/uL (130-400); RDW Coefficient of Variation 15.1 % (11.5-14.5); RDW Standard Deviation 52.9 fL (36.4-46.3); Red Blood Count 3.51 M/uL (4.2-5.4)
[2019-03-05 12:33] LABS: Appearance Urine Clear (Clear); Bacteria Urine Automated 1+ (Negative); Bilirubin Urine Negative (Negative); Blood Urine Negative (Negative); Cast Urine Automated 0 /lpf (0-5); Color Urine Yellow; Glucose Urine UA Negative (Negative); Ketones Urine Negative (Negative); Leukocyte Esterase Urine 1+ (Negative); Nitrite Urine Negative (Negative); Protein Urine Negative (Negative); Specific Gravity Urine 1.014 (1.000-1.030); Urobilinogen Urine Negative (Negative)
[2019-03-05 12:47] LABS: Alanine Aminotransferase 18 U/L (12-78); Albumin Level 2.9 gm/dl (3.4-5.0); Aspartate Aminotransferase 19 U/L (15-37); BUN Creatinine Ratio 23.7 (10-20); Blood Urea Nitrogen 45 mg/dl (7-18); Calcium 9.4 mg/dl (8.5-10.1); Carbon Dioxide 30 mmol/L (21-32); Chloride 104 mmol/L (98-107); Creatinine Clr Calc Pharmacy 23.9 ml/min; Est GFR (African American) 26.6; Glucose 106 mg/dl (70-99); Potassium 4.1 mmol/L (3.5-5.1); Sodium 141 mmol/L (136-145)
[2019-03-05 12:51] LABS: RBC Urine Automated 0-4 /hpf (0-4)
[2019-03-05 12:52] LABS: Albumin Globulin Ratio 0.7 (0.9-2); Alkaline Phosphatase 140 U/L (45-117); Bilirubin,Total 0.3 mg/dl (0.2-1); Creatine Kinase 76 U/L (26-192); Creatine Kinase MB 2.3 ng/ml (0.5-3.6); Globulin 4.2 gm/dl (2.5-4.0); NT Pro B Type Natriuretic Pept 4424 pg/ml (0-1800); Total Protein 7.1 gm/dl (6.4-8.2); Troponin I < 0.015 ng/ml (0-0.045)
--- NOTE | 2019-03-05 13:06 | History & Physical Report ---
Date of Service March 05, 2019 Assessment & Plan (1) CHF exacerbation: Acute on chronic Diastolic CHF exacerbation Hypoxia CXR showed: Small bilateral pleural effusions with bibasilar opacities suggestive of atelectasis or pneumonitis. Mild cardiomegaly without overt pulmonary edema. Last ECHO: EF:55-59% Hold PO diuretics Start IV Lasix 40mg BID Update ECHO Daily weight, I/Os, Low sodium diet Oxygen support PRN Monitor renal function/electrolytes Cardiology consulted Abnormal UA: Presents with dysuria Start Rocephin Urine Culture:pending No signs of sepsis Atrial fibrillation Rate Controlled PT/INR:2.9 Continue Metoprolol, Coumadin CKD stage IV Cr at baseline Monitor renal function while on IV diuretics Hold Losartan for now--Likely need to be discontinued CAD Peripheral vascular disease s/p stents Continue aspirin, metoprolol Losartan L Intolerance to statins Asthma No signs of exacerbation Continue home inhalers Nebs as needed DM II Last A1c: 6.8 on 05/05/18 Continue ISS, basal insulin Monitor BGs GERD Continue PPI Chronic dysphagia No acute issues Pured diet DVT Px: Coumadin CODE STATUS: Full code Disposition: Expect to discharge home in stable PT OT prior to discharge May need 2 step prior to discharge History of Present Illness Chief Complaint: Shortness of breath, hypoxia Primary Care Provider: Agustina Mock DO Patient is an 83-year-old female with history of atrial fibrillation on chronic anticoagulation, CKD stage IV, coronary artery disease S/P stents, asthma, peripheral vascular disease,DM II, GERD, hypertension, hyperparathyroidism, dysphagia and other problems presents with shortness of breath, hypoxia. Patient is a very poor historian. Patient was evaluated by her PCP today for worsening shortness of breath and was found to be hypoxic at 80% on room air. She was sent to ED for further evaluation. Patient complains of worsening shortness of breath on exertion since last 2 days. Currently she is not on home oxygen. She was also noted to be hypoxic yesterday while getting physical therapy. Reports bilateral lower extremity edema which has been gradually worsening since 1 week. Also reports having dysuria since 3 weeks duration, denies hematuria, increased urinary frequency. She was noted to have small bilateral pleural effusions with bibasilar opacities suggestive of possible atelectasis. Procalcitonin was normal. She was hypoxic at 88% on room air in ED. Denies any history of chest pain, dizziness, diaphoresis, cough, hemoptysis, fever, chills, headache, nausea, vomiting, abdominal pain, blood in stools, diarrhea, hematuria, recent change in medications Allergies Allergy/AdvReac Type Severity Reaction Status Date / Time clofibrate Allergy Severe SWELLING Verified 03/05/19 12:21 rabeprazole Allergy Intermediate SOB/COUGHING Verified 03/05/19 12:21 AND THROAT FELT TIGHT/ABD. CRAMPING fexofenadine Allergy Mild RASH Verified 03/05/19 12:21 Fibrate Anti-Lipidemics Allergy Mild SWELLING Verified 03/05/19 12:21 fluvastatin Allergy Mild HIVES Verified 03/05/19 12:21 metformin Allergy Mild URINARY Verified 03/05/19 12:21 FREQUENCY/RASH/ITCH morphine Allergy Mild ITCHY/HIVES Verified 03/05/19 12:21 moxifloxacin Allergy Mild ITCHY/NAUSE Verified 03/05/19 12:21 A Penicillins Allergy Mild HIVES Verified 03/05/19 14:48 Quinolones Allergy Mild RASH Verified 03/05/19 12:21 chlorpropamide Allergy Unknown UNKNOWN Verified 03/05/19 12:21 NSAIDS (Non-Steroidal Allergy Unknown UNKNOWN Verified 03/05/19 12:21 Anti-Inflamma Sulfa (Sulfonamide Allergy Unknown UNKNOWN Verified 03/05/19 12:21 Antibiotics) blue dye AdvReac Mild MYALGIAS Verified 03/05/19 12:21 AND CRAMPS codeine AdvReac Mild FEELS Verified 03/05/19 12:21 "HIGH" ON/ITCHING dexlansoprazole AdvReac Mild MYALGIAS Verified 03/05/19 12:21 AND CRAMPS gemfibrozil AdvReac Mild ABDOMINAL Verified 03/05/19 12:21 CRAMPS AND DIZZINESS lisinopril AdvReac Mild COUGH Verified 03/05/19 12:21 lorazepam AdvReac Mild 0 Verified 03/05/19 12:21 rofecoxib AdvReac Mild INDIGESTION Verified 03/05/19 12:21 Home Medications Home Medications Medication Instructions Recorded Confirmed Type albuterol sulfate HFA 90 2 puffs INH Q4H PRN gm 01/22/19 03/05/19 History mcg/actuation aerosol inhaler amlodipine 10 mg tablet 10 mg PO DAILY 01/22/19 03/05/19 History aspirin 81 mg tablet,delayed 81 mg PO DAILY 01/22/19 03/05/19 History release azelastine 137 mcg (0.1 %) nasal 1 sprays INTNAS BID 01/22/19 03/05/19 History spray aerosol docusate sodium 100 mg capsule 100 mg PO BID 01/22/19 03/05/19 History hydrocortisone 2.5 % topical cream 1 appln TOP BID PRN 01/22/19 03/05/19 History lorazepam 0.5 mg tablet 0.25 mg PO TID PRN tab 01/22/19 03/05/19 History losartan 25 mg tablet 12.5 mg PO DAILY tab 01/22/19 03/05/19 History metoprolol tartrate 50 mg tablet 12.5 mg PO BID tab 01/22/19 03/05/19 History montelukast 10 mg tablet 10 mg PO QPM 01/22/19 03/05/19 History nystatin 100,000 unit/gram topical 1 appln TOP BID 01/22/19 03/05/19 History cream zinc oxide 22 % topical cream 20 % TOP TID gm 01/22/19 03/05/19 History allopurinol 200 mg PO DAILY 03/05/19 03/05/19 History calcium carbonate 400 mg PO TIDM 03/05/19 03/05/19 History docusate sodium 100 mg PO BID 03/05/19 03/05/19 History fluticasone propion-salmeterol 1 inh INHALATION BID 03/05/19 03/05/19 History [Advair Diskus] fluticasone propionate [Flonase 2 spray INTRANASAL DAILY 03/05/19 03/05/19 History Allergy Relief] furosemide 40 mg PO BID 03/05/19 03/05/19 History insulin glargine [Basaglar KwikPen 28 unit SUBCUT DAILY 03/05/19 03/05/19 History U-100 Insulin] loratadine 10 mg PO DAILY 03/05/19 03/05/19 History multivitamin 1 tab PO DAILY 03/05/19 03/05/19 History omeprazole 20 mg PO DAILY 03/05/19 03/05/19 History sennosides-docusate sodium 1 tab PO BID 03/05/19 03/05/19 History [Senna-S] warfarin 2.5 mg PO UD 03/05/19 03/05/19 History warfarin 5 mg PO UD 03/05/19 03/05/19 History Past Med/Surg History Medical History Anemia (Chronic) Asthma (Chronic) CAD (coronary atherosclerotic disease) (Chronic) CKD (chronic kidney disease) stage 4, GFR 15-29 ml/min (Chronic) Diabetes (Chronic) GERD (gastroesophageal reflux disease) (Chronic) HTN, goal to be determined (Chronic) Hyperparathyroidism (Chronic) Obesity (Chronic) PVD (peripheral vascular disease) (Chronic) Surgical History H/O right coronary artery stent placement (Resolved) S/P abdominal hysterectomy (Resolved) S/P cholecystectomy (Resolved) Social History Preferred Language: Andorran Visual Impairment: Limited Hearing Ability: Hard of Hearing Beliefs That Will Affect Care: None marital status: / Current Living Situation: Alone current occupational status: retired Feels Safe at Home: Yes Smoking Status: Never smoker Hx Alcohol Use: No Hx Substance Use: No Review of Systems Review of Systems: All systems reviewed & are unremarkable except as noted in HPI & below Physical Exam Physical Exam: Physical Exam: Vitals signs as noted above General Appearance:Obese, no apparent distress Head: normocephalic, Atraumatic Eyes: normal inspection, EOMI Neck: supple, Trachea midline Respiratory/Chest: Normal breath sounds, + Basal Crackles Cardiovascular: Irregularly irregular ,No murmur Abdomen/GI:Soft, Non tender, Bowel sounds present Extremities/Musculoskelatal:normal inspection, 2 + B/L LE edema Neurologic/Psych:AAOX3, grossly no focal neurological deficits Skin: normal color, warm Results & Data Vital Signs (Past 12 Hours) Vital Signs Temp Pulse Pulse Resp BP BP Pulse Ox 03/05/19 12:30 67 20 155/61 H 94 03/05/19 12:00 71 20 157/71 H 94 03/05/19 11:25 37 C 66 66 20 171/70 H 171/70 H 94 Laboratory Results Short CBC 03/05/19 Range/Units 12:12 WBC 8.50 (4.8-10.8) K/uL Hgb 11.2 L (12.0-16.0) g/dL Hct 33.8 L (37-47) % Plt Count 185 (130-400) K/uL BMP 03/05/19 12:12 Sodium 141 Potassium 4.1 Chloride 104 Carbon Dioxide 30 BUN 45 H Creatinine 1.91 H Glucose 106 H Calcium 9.4 Cardiac Enzymes 03/05/19 Range/Units 12:12 Total Creatine Kinase 76 (26-192) U/L CK-MB (CK-2) 2.3 (0.5-3.6) ng/ml Troponin I < 0.015 (0-0.045) ng/ml Liver Function 03/05/19 Range/Units 12:12 Total Bilirubin 0.3 (0.2-1) mg/dl AST 19 (15-37) U/L ALT 18 (12-78) U/L Alkaline Phosphatase 140 H (45-117) U/L Albumin 2.9 L (3.4-5.0) gm/dl Urine 03/05/19 Range/Units 11:44 Urine Color Yellow Urine Appearance Clear (Clear) Urine pH 7.0 (4.5-7.5) Ur Specific Tyner 1.014 (1.000-1.030) Urine Protein Negative (Negative) Urine Glucose (UA) Negative (Negative) Diagnostic Findings CXR: 1. Small bilateral pleural effusions with bibasilar opacities suggestive of atelectasis or pneumonitis. 2. Mild cardiomegaly without overt pulmonary edema. 3. 10 mm left midlung opacity may reflect summation density from pulmonary vasculature. EKG: Atrial fibrillation Left axis deviation QTc 440 (1) CHF exacerbation Heart failure type: unspecified Qualified Code(s): I50.9 - Heart failure, unspecified
[2019-03-05] MEDS ORDERED: CARBOHYDRATES FOR HYPOGLYCEMIA PO PRN (15:07)
[2019-03-05] MEDS ORDERED: GLUCOSE 10 TABS/TUBE PO PRN (15:07)
[2019-03-05] MEDS ORDERED: ALBUT/IPRATROP 3MG/0.5MG NEB 3 ML VIAL NEB PRN (15:07)
[2019-03-05] MEDS ORDERED: GLUCOSE 40% GEL 15 GM TUBE PO PRN (15:07)
[2019-03-05] MEDS ORDERED: ONDANSETRON INJ 2 MG/ML 2 ML VIAL IV PRN (15:07)
[2019-03-05] MEDS ORDERED: DEXTROSE 50% 50 ML SYRINGE IV PRN (15:07)
[2019-03-05] MEDS ORDERED: GLUCAGON FOR INJ 1 MG VIAL SQ PRN (15:07)
[2019-03-05] MEDS ORDERED: LORazepam 0.5 MG TAB PO PRN (15:07)
[2019-03-05] MEDS ORDERED: POLYETHYLENE (MIRALAX) 17 GM PACK PO PRN (15:07)
[2019-03-05] MEDS: cefTRIAXone SODIUM 2,000 MG in DEXTROSE 5% 50 ML IV SCH (16:00)
[2019-03-05 16:02] LABS: Prothrombin Time 19.3 Seconds (9.0-12.0)
[2019-03-05] MEDS ORDERED: WARFARIN SOD 2.5 MG TAB PO SCH (16:30)
[2019-03-05] MEDS: FUROSEMIDE 40 MG in SYRINGE 0 ML IV SCH (17:02)
[2019-03-05] MEDS: INSULIN ASPART 100 UNITS/ML 3 ML PEN SC SCH ×2 (17:25→20:48)
[2019-03-05] MEDS ORDERED: Nursing to Pharmacy Communication ONE (17:29)
[2019-03-05] MEDS: DOCUSATE SODIUM 100 MG CAP PO SCH (22:00)
[2019-03-05] MEDS: MONTELUKAST SODIUM 10 MG TABLET PO SCH (22:01)
[2019-03-05] MEDS: WARFARIN SOD 2.5 MG TAB PO SCH (22:01)
[2019-03-05] MEDS: ACETAMINOPHEN 325 MG TAB PO PRN (22:01)
[2019-03-05] MEDS: METOPROLOL TARTRATE 25 MG TAB PO SCH (22:04)
[2019-03-05] MEDS: DOCUSATE SODIUM/SENNA 50/8.6MG TAB PO SCH (22:04)
[2019-03-05] MEDS: FLUTICASONE/SALMETEROL 250/50 (ADVAIR) 14 PUFF/1 INHALER INH SCH (22:06)
[2019-03-06 06:13] LABS: Hematocrit (blood only) 31.5 % (37-47); Hemoglobin 10.2 g/dL (12.0-16.0); Mean Corpuscular Hgb Conc 32.4 g/dL (32-36); Mean Corpuscular Volume 96.9 fL (80-100); Mean Platelet Volume 9.7 fL (7.4-10.4); Platelet Count 169 K/uL (130-400); RDW Standard Deviation 53.6 fL (36.4-46.3); Red Blood Count 3.25 M/uL (4.2-5.4); White Blood Count 6.02 K/uL (4.8-10.8)
[2019-03-06 06:31] LABS: Prothrombin Time 19.8 Seconds (9.0-12.0)
[2019-03-06 06:35] LABS: Estimated Average Glucose 160 mg/dl; Hemoglobin A1C 7.2 % (4.5-5.6)
[2019-03-06 06:44] LABS: BUN Creatinine Ratio 23.7 (10-20); Calcium 9.1 mg/dl (8.5-10.1); Creatinine Clr Calc Pharmacy 22.9 ml/min; Est GFR (African American) 24.7; Est GFR (Non-African American) 21.4; Magnesium 2.2 mg/dl (1.8-2.4); Potassium 4.3 mmol/L (3.5-5.1)
[2019-03-06] MEDS: ALLOPURINOL 100 MG TAB PO SCH (08:28)
[2019-03-06] MEDS: FLUTICASONE/SALMETEROL 250/50 (ADVAIR) 14 PUFF/1 INHALER INH SCH ×2 (08:28→20:59)
[2019-03-06] MEDS: PANTOprazole 40 MG TAB PO SCH (08:29)
[2019-03-06] MEDS: DOCUSATE SODIUM 100 MG CAP PO SCH ×2 (08:29→21:37)
[2019-03-06] MEDS: AMLODIPINE BESYLATE 5 MG TAB PO SCH (08:29)
[2019-03-06] MEDS: ASPIRIN 81 MG ECTAB PO SCH (08:30)
[2019-03-06] MEDS: METOPROLOL TARTRATE 25 MG TAB PO SCH (08:30)
[2019-03-06] MEDS: DOCUSATE SODIUM/SENNA 50/8.6MG TAB PO SCH ×2 (08:31→21:36)
[2019-03-06] MEDS: LORATADINE 10 MG TAB PO SCH (08:31)
[2019-03-06] MEDS: INSULIN GLARGINE SOLOSTAR 100 UNITS/ML 3 ML PEN SQ SCH (08:32)
[2019-03-06] MEDS: INSULIN ASPART 100 UNITS/ML 3 ML PEN SC SCH ×4 (08:32→21:05)
[2019-03-06] MEDS: FLUTICASONE PROPIONATE NA SPR 16 GM BTL SCH (08:32)
[2019-03-06] MEDS: FUROSEMIDE 40 MG in SYRINGE 0 ML IV SCH ×2 (08:48→16:19)
--- NOTE | 2019-03-06 13:24 | Hospitalist Progress Note ---
Date of Service March 06, 2019 Assessment & Plan (1) CHF exacerbation: Acute on chronic Diastolic CHF exacerbation Hypoxia on admission -CXR showed: Small bilateral pleural effusions with bibasilar opacities suggestive of atelectasis or pneumonitis. Mild cardiomegaly without overt pulmonary edema. -EF is 55 % with severely dilated left atrium -was started on on IV Lasix 40mg BID in place of home oral Lasix, will continue IV Lasix at this time -patient breathing on room air as of 03/06/19 -Daily weight, I/Os, Low sodium diet Chronic Atrial fibrillation -Rate Controlled -change Metoprolol 12.5 mg BID to daily to avoid night time bradycardia -Continue Coumadin , INR is 2 CKD stage IV -hold home dose losartan while on IV Lasix CAD Peripheral vascular disease -continue aspirin, on metoprolol Urinary Tract Infection -continue Ceftriaxone -awaiting speciation of urine culture with gram negative bacilli CAD Continue aspirin, metoprolol Asthma -Continue home inhalers -Nebs as needed Diabetes Mellitus Type II controlled with penitentiary current use of insulin -HbA1c 7.2 -Continue ISS, basal insulin -Monitor BGs GERD -Continue PPI Chronic dysphagia -Pured diet DVT Px: Coumadin CODE STATUS: Full code patient's son Luis ([phone]; [phone]) Subjective Patient seen and examined this AM breathing on room air. has godfrey. patient's son Luis ([phone]; [phone]) at bedside. Patient reports the main reason for her to come to hospital was shortness of breath. Currently she is feeling better. Lung exam with some congestion. patient is not in distress. denies chest pain. denies abdomen pain. patient's family concerned about patient with urinary tract infection symptoms prior to coming to the hospital. Patient is on IV antibiotics. patient's family notes that patient does not follow salt restrictions at home. night time bradycardia into the 30s noted on telemetry overnight . Physical Exam Constitutional: WD/WN, vitals as above Eyes: PERRL, conjunctivae normal, anicteric sclerae EOM intact bilaterally ENMT: external ear and nose normal, oropharynx normal Neck: trachea midline, no thyromegaly normal visual inspection Respiratory: normal respiratory effort Auscultation: + diminished lung s ounds Cardiovascular: Rate/Rhythm: + bradycardic and + irregularly irregular Gastrointestinal (Abdomen): normal bowel sounds, soft, nontender, no hepatosplenomegaly Musculoskeletal: Head/Neck/Chest: normocephalic and head atraumatic Neurologic: PERRL, EOMI, accommodation nl, no face palsy, no dysarthria CN's II-XI intact bilaterally Psychiatric: A+Ox3, euthymic affect Results & Data Vital Signs (Past 12 Hours) Vital Signs Temp Pulse Resp BP Pulse Ox Pulse Ox 03/06/19 11:37 96 03/06/19 11:28 36.3 C L 60 21 149/63 H 98 03/06/19 06:55 36.4 C L 59 L 17 149/75 H 98 03/06/19 03:55 36.8 C 65 18 114/56 L 94 (1) CHF exacerbation Heart failure type: unspecified Qualified Code(s): I50.9 - Heart failure, unspecified
--- NOTE | 2019-03-06 15:16 | Emergency Department Note ---
Entered by Cindy Cisneros acting as a scribe for History of Present Illness General Chief complaint: Shortness of Breath/Dyspnea Time Seen by Provider: 03/05/19 11:47 Source: patient and RN notes reviewed Mode of arrival: EMS Limitations: no limitations History of Present Illness Provider complaint: SOB Onset (ago): day(s) (a few) Location: chest Pain Consistency: + other (persistent) Quality: + other (BA) Exacerbated By: + movement (exertion) Associated symptoms: no chest pain The patient is an 89 year old female with a past medical history of CHF and stage 4 kidney disease who presents to the ER via EMS with complaints of a persistent shortness of breath that began a few days ago. The patient reports that she was being evaluated at her PCPs office this morning and was referred here secondary to her symptoms. She denies any chest pain. She RN states that the patients symptoms are worse with exertion and explains that her oxygen saturation went down to 87% when she was walking. The patient notes that she does have 5 stents in her heart. She also reports that she feels as if she is filled with fluid. Home Medications Home Medications Medication Instructions Recorded Confirmed Type albuterol sulfate HFA 90 2 puffs INH Q4H PRN gm 01/22/19 03/05/19 History mcg/actuation aerosol inhaler amlodipine 10 mg tablet 10 mg PO DAILY 01/22/19 03/05/19 History aspirin 81 mg tablet,delayed 81 mg PO DAILY 01/22/19 03/05/19 History release azelastine 137 mcg (0.1 %) nasal 1 sprays INTNAS BID 01/22/19 03/05/19 History spray aerosol docusate sodium 100 mg capsule 100 mg PO BID 01/22/19 03/05/19 History hydrocortisone 2.5 % topical cream 1 appln TOP BID PRN 01/22/19 03/05/19 History lorazepam 0.5 mg tablet 0.25 mg PO TID PRN tab 01/22/19 03/05/19 History losartan 25 mg tablet 12.5 mg PO DAILY tab 01/22/19 03/05/19 History metoprolol tartrate 50 mg tablet 12.5 mg PO BID tab 01/22/19 03/05/19 History montelukast 10 mg tablet 10 mg PO QPM 01/22/19 03/05/19 History nystatin 100,000 unit/gram topical 1 appln TOP BID 01/22/19 03/05/19 History cream zinc oxide 22 % topical cream 20 % TOP TID gm 01/22/19 03/05/19 History allopurinol 200 mg PO DAILY 03/05/19 03/05/19 History calcium carbonate 400 mg PO TIDM 03/05/19 03/05/19 History docusate sodium 100 mg PO BID 03/05/19 03/05/19 History fluticasone propion-salmeterol 1 inh INHALATION BID 03/05/19 03/05/19 History [Advair Diskus] fluticasone propionate [Flonase 2 spray INTRANASAL DAILY 03/05/19 03/05/19 History Allergy Relief] furosemide 40 mg PO BID 03/05/19 03/05/19 History insulin glargine [Basaglar KwikPen 28 unit SUBCUT DAILY 03/05/19 03/05/19 History U-100 Insulin] loratadine 10 mg PO DAILY 03/05/19 03/05/19 History multivitamin 1 tab PO DAILY 03/05/19 03/05/19 History omeprazole 20 mg PO DAILY 03/05/19 03/05/19 History sennosides-docusate sodium 1 tab PO BID 03/05/19 03/05/19 History [Senna-S] warfarin 2.5 mg PO UD 03/05/19 03/05/19 History warfarin 5 mg PO UD 03/05/19 03/05/19 History Allergies Allergy/AdvReac Type Severity Reaction Status Date / Time clofibrate Allergy Severe SWELLING Verified 03/05/19 12:21 rabeprazole Allergy Intermediate SOB/COUGHING Verified 03/05/19 12:21 AND THROAT FELT TIGHT/ABD. CRAMPING fexofenadine Allergy Mild RASH Verified 03/05/19 12:21 Fibrate Anti-Lipidemics Allergy Mild SWELLING Verified 03/05/19 12:21 fluvastatin Allergy Mild HIVES Verified 03/05/19 12:21 metformin Allergy Mild URINARY Verified 03/05/19 12:21 FREQUENCY/RASH/ITCH morphine Allergy Mild ITCHY/HIVES Verified 03/05/19 12:21 moxifloxacin Allergy Mild ITCHY/NAUSE Verified 03/05/19 12:21 A Penicillins Allergy Mild HIVES Verified 03/05/19 14:48 Quinolones Allergy Mild RASH Verified 03/05/19 12:21 chlorpropamide Allergy Unknown UNKNOWN Verified 03/05/19 12:21 NSAIDS (Non-Steroidal Allergy Unknown UNKNOWN Verified 03/05/19 12:21 Anti-Inflamma Sulfa (Sulfonamide Allergy Unknown UNKNOWN Verified 03/05/19 12:21 Antibiotics) blue dye AdvReac Mild MYALGIAS Verified 03/05/19 12:21 AND CRAMPS codeine AdvReac Mild FEELS Verified 03/05/19 12:21 "HIGH" ON/ITCHING dexlansoprazole AdvReac Mild MYALGIAS Verified 03/05/19 12:21 AND CRAMPS gemfibrozil AdvReac Mild ABDOMINAL Verified 03/05/19 12:21 CRAMPS AND DIZZINESS lisinopril AdvReac Mild COUGH Verified 03/05/19 12:21 lorazepam AdvReac Mild 0 Verified 03/05/19 12:21 rofecoxib AdvReac Mild INDIGESTION Verified 03/05/19 12:21 Past Med/Surg History Medical History Anemia (Chronic) Asthma (Chronic) CAD (coronary atherosclerotic disease) (Chronic) CKD (chronic kidney disease) stage 4, GFR 15-29 ml/min (Chronic) Diabetes (Chronic) GERD (gastroesophageal reflux disease) (Chronic) HTN, goal to be determined (Chronic) Hyperparathyroidism (Chronic) Obesity (Chronic) PVD (peripheral vascular disease) (Chronic) Surgical History H/O right coronary artery stent placement (Resolved) S/P abdominal hysterectomy (Resolved) S/P cholecystectomy (Resolved) Social History Preferred Language: Filipino Communication Ability: Effective Visual Impairment: Limited Hearing Ability: Hard of Hearing Knitted Garment Finisher Required: No Beliefs That Will Affect Care: None marital status: / Current Living Situation: Personal Care Facility Current Living Situation Comment: [place] [employer] current occupational status: retired Other Information That Helps Us Care for You: No Feels Safe at Home: Yes Safety Concerns: Feels Safe At This Time Smoking Status: Never smoker Hx Alcohol Use: No Hx Substance Use: No Review of Systems See HPI for pertinent positives & negatives. and A total of 10 systems reviewed and were otherwise negative Physical Exam Vital Signs Vital Signs - 24 hr 03/05/19 11:25 03/05/19 12:00 03/05/19 12:30 Temperature 98.6 F Temperature Source Oral Sepsis Recent Fever Within 48 Hours No Sepsis New/Unexplained Change in Mental Status No Sepsis Action Taken by Nursing No Action Required Pulse Rate 66 Pulse Rate [Apical] 66 71 67 Pulse Rhythm Irregular Pulse Rhythm [Apical] Irregular Irregular Irregular Respiratory Rate 20 20 20 Respiratory Effort / Characteristics SOB on Exertion SOB on Exertion SOB on Exertion Respiratory Depth Normal Normal Normal Respiratory Pattern Regular Regular Regular Blood Pressure 171/70 H Blood Pressure [Left Arm] 171/70 H 157/71 H 155/61 H Blood Pressure Mean 103 Blood Pressure Mean [Left Arm] 103 99 92 Blood Pressure Position Sitting Blood Pressure Position [Left Arm] Sitting Sitting Sitting Pulse Oximetry 94 94 94 Oxygen Delivery Method Room Air Room Air Room Air GENERAL: Awake, alert, well-appearing, in no acute distress HENT: Normocephalic, atraumatic. Oropharynx unremarkable. EYES: Normal conjunctiva. Sclera non-icteric. NECK: Supple. No nuchal rigidity. FROM. No JVD. RESPIRATORY: Rales at the bases. CARDIAC: Regular rate, normal rhythm. Extremities warm and well perfused. Pulses equal. ABDOMEN: Soft, non-distended. No tenderness to palpation. No rebound or guarding. No masses. RECTAL: Deferred. MUSCULOSKELETAL: Chest examination reveals no tenderness. The back is symmetrical on inspection without obvious abnormality. There is no CVA tenderness to palpation. No joint edema. LOWER EXTREMITIES: Calves are equal size bilaterally and non-tender. No edema. No discoloration. NEURO: Normal sensorium. No sensory or motor deficits noted. SKIN: No rash or jaundice noted. Course 1151: Past medical records reviewed. The patient was evaluated in room C3. A complete history and physical examination was performed. 1301: I reviewed the patient's case with Dr. Rigo Mabry Hospitalist. He will evaluate the patient for further management. 1310: I updated the patient and she is agreeable with the treatment plan. Administered Medications Acetaminophen (Tylenol) 650 mg PO Q4H PRN PRN Reason: Pain or Fever Stop: 04/04/19 15:06 Last Admin: 03/05/19 22:01 Dose: 650 mg Documented by: [id number] Allopurinol (Zyloprim) 200 mg PO DAILY [facility] Stop: 04/05/19 08:59 Last Admin: 03/06/19 08:28 Dose: 200 mg Documented by: [id number] Amlodipine Besylate (Norvasc) 10 mg PO DAILY [facility] Stop: 04/05/19 08:59 Last Admin: 03/06/19 08:29 Dose: 10 mg Documented by: [id number] Aspirin (Ecotrin Ectab) 81 mg PO DAILY [facility] Stop: 04/05/19 08:59 Last Admin: 03/06/19 08:30 Dose: 81 mg Documented by: [id number] Docusate Sodium (Colace) 100 mg PO BID [facility] Stop: 04/04/19 20:59 Last Admin: 03/06/19 08:29 Dose: 100 mg Documented by: [id number] Admin: 03/05/19 22:00 Dose: 100 mg Documented by: [id number] Fluticasone Propionate (Flonase) 2 sprays NA DAILY [facility] Stop: 04/05/19 08:59 Last Admin: 03/06/19 08:32 Dose: Not Given Documented by: [id number] Furosemide 40 mg/ Syringe 4 mls @ 4 mls/min IV [id number] [facility] Stop: 04/04/19 16:59 Last Admin: 03/06/19 08:48 Dose: 4 mls/min Documented by: [id number] Admin: 03/05/19 17:02 Dose: 4 mls/min Documented by: [id number] Ceftriaxone Sodium 2,000 mg/ (Dextrose) 50 mls @ 100 mls/hr IV Q24H [facility]; Protocol Stop: 03/10/19 15:29 Last Infusion: 03/05/19 17:02 Dose: 0 mls/hr Documented by: [id number] Admin: 03/05/19 16:00 Dose: 100 mls/hr Documented by: [id number] Insulin Aspart (Novolog Flexpen) 0 units SC ACHS [facility] Stop: 04/04/19 16:29 Last Admin: 03/06/19 12:36 Dose: 4 units Documented by: [id number] Cosigned by: [id number] Admin: 03/06/19 08:32 Dose: Not Given Documented by: [id number] Cosigned by: [id number] Admin: 03/05/19 20:48 Dose: Not Given Documented by: [id number] Admin: 03/05/19 17:25 Dose: Not Given Documented by: [id number] Cosigned by: [id number] Insulin Glargine (Lantus Solostar Pen) 28 units SQ DAILY [facility] Stop: 04/05/19 08:59 Last Admin: 03/06/19 08:32 Dose: 28 units Documented by: [id number] Cosigned by: [id number] Loratadine (Claritin) 10 mg PO DAILY [facility] Stop: 04/05/19 08:59 Last Admin: 03/06/19 08:31 Dose: 10 mg Documented by: [id number] Montelukast Sodium (Singulair) 10 mg PO QPM [facility] Stop: 04/04/19 20:59 Last Admin: 03/05/19 22:01 Dose: 10 mg Documented by: [id number] Pantoprazole Sodium (Protonix) 40 mg PO QAM [facility]; Protocol Stop: 04/05/19 08:59 Last Admin: 03/06/19 08:29 Dose: 40 mg Documented by: [id number] Fluticasone/Salmeterol (Advair Diskus 250/50) 1 puffs INH BID [facility] Stop: 04/04/19 20:59 Last Admin: 03/06/19 08:28 Dose: 1 puffs Documented by: [id number] Admin: 03/05/19 22:06 Dose: Not Given Documented by: [id number] Senna/Docusate Sodium (Senokot S) 1 tab PO BID [facility] Stop: 04/04/19 20:59 Last Admin: 03/06/19 08:31 Dose: 1 tab Documented by: [id number] Admin: 03/05/19 22:04 Dose: 1 tab Documented by: [id number] Warfarin Sodium (Coumadin) 2.5 mg PO TuThSa@2100 [facility] Stop: 04/04/19 20:59 Last Admin: 03/05/19 22:01 Dose: 2.5 mg Documented by: [id number] Discontinued Medications Furosemide (Lasix) 40 mg IV NOW [facility] Stop: 03/05/19 11:57 Last Admin: 03/05/19 12:31 Dose: 40 mg Documented by: [id number] Metoprolol Tartrate (Lopressor) 12.5 mg PO BID [facility] Stop: 04/04/19 20:59 Last Admin: 03/06/19 08:30 Dose: 12.5 mg Documented by: [id number] Admin: 03/05/19 22:04 Dose: 12.5 mg Documented by: [id number] Miscellaneous (Order Awaiting Action) 1 ea N/A QS [facility] Stop: 04/04/19 15:59 Last Admin: 03/06/19 08:28 Dose: Not Given Documented by: [id number] Admin: 03/05/19 23:54 Dose: Not Given Documented by: [id number] Admin: 03/05/19 16:03 Dose: Not Given Documented by: [id number] Warfarin Sodium (Coumadin) 2.5 mg PO TuThSa@1600 [facility] Stop: 04/04/19 16:29 Last Admin: 03/05/19 18:43 Dose: Not Given Documented by: [id number] Medical Decision Making Differential Diagnosis Differential diagnoses includes: pneumonia, bronchitis, COPD/Asthma exacerbation, pneumothorax, pulmonary embolism, congestive heart failure, and acute coronary syndrome amongst others. Medical Records Attestation: I reviewed the patient's medical records. Home Medications Current Medication List: was personally reviewed by me Laboratory Data Attestation: I reviewed the patient's lab results. Result diagrams: 03/06/19 06:02 03/06/19 06:02 Lab Results 03/05/19 03/05/19 03/05/19 Range/Units 11:44 12:12 12:12 WBC 8.50 (4.8-10.8) K/uL RBC 3.51 L (4.2-5.4) M/uL Hgb 11.2 L (12.0-16.0) g/dL Hct 33.8 L (37-47) % MCV 96.3 (80-100) fL MCH 31.9 (25-34) pg MCHC 33.1 (32-36) g/dL RDW Std Deviation 52.9 H (36.4-46.3) fL RDW Coeff of Adolph 15.1 H (11.5-14.5) % Plt Count 185 (130-400) K/uL MPV 9.9 (7.4-10.4) fL Immature Gran % (Auto) 0.2 % Neut % (Auto) 72.6 % Lymph % (Auto) 19.1 % Williams % (Auto) 4.6 % Eos % (Auto) 3.1 % Baso % (Auto) 0.4 % Immature Gran # (Auto) 0.02 (0.00-0.02) K/uL Neut # (Auto) 6.18 (1.4-6.5) K/uL Lymph # (Auto) 1.62 (1.2-3.4) K/uL Williams # (Auto) 0.39 (0.11-0.59) K/uL Eos # (Auto) 0.26 (0-0.5) K/uL Baso # (Auto) 0.03 (0-0.2) K/uL Sodium 141 (136-145) mmol/L Potassium 4.1 (3.5-5.1) mmol/L Chloride 104 (98-107) mmol/L Carbon Dioxide 30 (21-32) mmol/L Anion Gap 8.0 (3-11) BUN 45 H (7-18) mg/dl Creatinine 1.91 H (0.6-1.2) mg/dl Est Cr Clr Drug Dosing 23.9 ml/min Est GFR ( Amer) 26.6 Est GFR (Non-Af Amer) 23.0 BUN/Creatinine Ratio 23.7 H (10-20) Glucose 106 H (70-99) mg/dl Calcium 9.4 (8.5-10.1) mg/dl Total Bilirubin 0.3 (0.2-1) mg/dl AST 19 (15-37) U/L ALT 18 (12-78) U/L Alkaline Phosphatase 140 H (45-117) U/L Total Creatine Kinase 76 (26-192) U/L CK-MB (CK-2) 2.3 (0.5-3.6) ng/ml CK/CKMB % Calc 3.0 (0-3.0) Troponin I < 0.015 (0-0.045) ng/ml NT-Pro-B Natriuret Pep 4424 H (0-1800) pg/ml Total Protein 7.1 (6.4-8.2) gm/dl Albumin 2.9 L (3.4-5.0) gm/dl Globulin 4.2 H (2.5-4.0) gm/dl Albumin/Globulin Ratio 0.7 L (0.9-2) Lipase 52 L (73-393) U/L Procalcitonin (0-0.5) ng/ml Urine Color Yellow Urine Appearance Clear (Clear) Urine pH 7.0 (4.5-7.5) Ur Specific [place] 1.014 (1.000-1.030) Urine Protein Negative (Negative) Urine Glucose (UA) Negative (Negative) Urine Ketones Negative (Negative) Urine Blood Negative (Negative) Urine Nitrite Negative (Negative) Urine Bilirubin Negative (Negative) Urine Urobilinogen Negative (Negative) Ur Leukocyte Esterase 1+ H (Negative) Urine WBC (Auto) 5-10 H (0-5) /hpf Urine RBC (Auto) 0-4 (0-4) /hpf U Hyaline Cast (Auto) 0 (0-5) /lpf U Epithel Cells (Auto) 10-20 H (0-5) /lpf Urine Bacteria (Auto) 1+ H (Negative) 03/05/19 Range/Units 12:12 WBC (4.8-10.8) K/uL RBC (4.2-5.4) M/uL Hgb (12.0-16.0) g/dL Hct (37-47) % MCV (80-100) fL MCH (25-34) pg MCHC (32-36) g/dL RDW Std Deviation (36.4-46.3) fL RDW Coeff of Adolph (11.5-14.5) % Plt Count (130-400) K/uL MPV (7.4-10.4) fL Immature Gran % (Auto) % Neut % (Auto) % Lymph % (Auto) % Williams % (Auto) % Eos % (Auto) % Baso % (Auto) % Immature Gran # (Auto) (0.00-0.02) K/uL Neut # (Auto) (1.4-6.5) K/uL Lymph # (Auto) (1.2-3.4) K/uL Williams # (Auto) (0.11-0.59) K/uL Eos # (Auto) (0-0.5) K/uL Baso # (Auto) (0-0.2) K/uL Sodium (136-145) mmol/L Potassium (3.5-5.1) mmol/L Chloride (98-107) mmol/L Carbon Dioxide (21-32) mmol/L Anion Gap (3-11) BUN (7-18) mg/dl Creatinine (0.6-1.2) mg/dl Est Cr Clr Drug Dosing ml/min Est GFR ( Amer) Est GFR (Non-Af Amer) BUN/Creatinine Ratio (10-20) Glucose (70-99) mg/dl Calcium (8.5-10.1) mg/dl Total Bilirubin (0.2-1) mg/dl AST (15-37) U/L ALT (12-78) U/L Alkaline Phosphatase (45-117) U/L Total Creatine Kinase (26-192) U/L CK-MB (CK-2) (0.5-3.6) ng/ml CK/CKMB % Calc (0-3.0) Troponin I (0-0.045) ng/ml NT-Pro-B Natriuret Pep (0-1800) pg/ml Total Protein (6.4-8.2) gm/dl Albumin (3.4-5.0) gm/dl Globulin (2.5-4.0) gm/dl Albumin/Globulin Ratio (0.9-2) Lipase (73-393) U/L Procalcitonin < 0.05 (0-0.5) ng/ml Urine Color Urine Appearance (Clear) Urine pH (4.5-7.5) Ur Specific [place] (1.000-1.030) Urine Protein (Negative) Urine Glucose (UA) (Negative) Urine Ketones (Negative) Urine Blood (Negative) Urine Nitrite (Negative) Urine Bilirubin (Negative) Urine Urobilinogen (Negative) Ur Leukocyte Esterase (Negative) Urine WBC (Auto) (0-5) /hpf Urine RBC (Auto) (0-4) /hpf U Hyaline Cast (Auto) (0-5) /lpf U Epithel Cells (Auto) (0-5) /lpf Urine Bacteria (Auto) (Negative) Imaging Data Radiologist's Impression: Radiology results as stated below per my review and the radiologist's interpretation: XR chest 1V portable HISTORY: 89 years-old Female Chest Pain acute atypical chest pain with shortness of breath COMPARISON: Chest radiograph 05/13/2018 TECHNIQUE: Portable AP view of the chest FINDINGS: Cardiac silhouette is mildly enlarged. 10 mm nodular opacity of the left midlung. Calcification of the thoracic aortic arch. No pneumothorax. Small bilateral pleural effusions with bibasilar opacities. No overt pulmonary edema. Degenerative changes of the shoulders and spine. IMPRESSION: 1. Small bilateral pleural effusions with bibasilar opacities suggestive of atelectasis or pneumonitis. 2. Mild cardiomegaly without overt pulmonary edema. 3. 10 mm left midlung opacity may reflect summation density from pulmonary vasculature. The above report was generated using voice recognition software. It may contain grammatical, syntax or spelling errors. Electronically signed by: Beto dEdy M.D. 03/05/2019 12:19 PM ECG Data Attestation: I personally reviewed and interpreted this ECG as follows: Indication: SOB/dyspnea Rate (beats per minute): 70 Findings: + other (old anteroseptal infarct); no ST depression and no ST elevation Comparison ECG Date: from (13-MAY-2018) Change: no significant change Blood Pressure Blood Pressure Findings: Elevated blood pressure Blood Pressure Disposition: further management by hospitalist MDM Narrative This is an 89-year-old female who presents emergency department complaining of shortness of breath. The patient was given Lasix here in the emergency department. She is hypoxic therefore I did discuss the case with the hospitalist service who agreed to admit the patient. Patient family were in agreement with the treatment plan. Impression & Plan CHF exacerbation Discharge Plan Visit Data *Final* Discharge Date/Time: 03/05/19 14:40 Chief Complaint: Shortness of Breath/Dyspnea ED Provider: Ankit Topete Discharge Problem: CHF exacerbation Patient Disposition: Admitted As Inpatient Discharge Instructions Interventions: ED Discharge Assessment Last Done: 03/05/19 14:40 Discharge Problem: CHF exacerbation Qualifiers: Heart failure type: unspecified Qualified Code(s): I50.9 - Heart failure, unspecified The scribe's documentation has been prepared under my direction and personally reviewed by me in its entirety. I confirm that the note above accurately reflects all work, treatment, procedures, and medical decision making performed by me.
[2019-03-06] MEDS ORDERED: WARFARIN SOD 5 MG TAB PO SCH ×2 (16:00→21:00)
[2019-03-06] MEDS: cefTRIAXone SODIUM 2,000 MG in DEXTROSE 5% 50 ML IV SCH (16:19)
--- NOTE | 2019-03-06 20:31 | Cardiology Consultation ---
Date of Consultation March 06, 2019 Assessment & Plan (1) (HFpEF) heart failure with preserved ejection fraction: Acute on chronic heart failure with preserved ejection fraction. Echocardiogram performed today revealed mild concentric left ventricular hypertrophy with preserved LVEF, 55 percent. Mild mitral regurgitation Mild tricuspid regurgitation Review of historical creatinine levels reveal baseline in the range of 1.9-2.5. Her current creatinine level of 2.03 mg/dL is therefore reasonable. Continue furosemide 40 mg IV twice daily. Patient is on low-dose metoprolol tartrate 12.5 mg twice daily. Due to slow rates while hospitalized, this was reduced to once per day, will continue this for now. Future considerations include weaning down her amlodipine dose because of her chronic venous insufficiency and edema, but it does appear that she has significant hypertension, and therefore this medication may be necessary, and certainly still heart would not tolerate additional AV whit blocking blood pressure medications. Hydralazine as a alternative would potentially also co ntribute to fluid retention. So we will reassess this as her hospital stay develops. Continue Coumadin. Continue aspirin. (2) Chronic a-fib: (3) Chronic venous insufficiency: History of Present Illness Attending Physician: Meng Lang MD History of Present Illness Traci Christensen is an 89 year old female seen in cardiology consultation per the request of Dr Sierra for the evaluation of congestive heart failure. On the day of admission she had been evaluated by primary care and was found to be hypoxic with a pulse oximetry of 80% on room air. She has chronic bilateral lower extremity edema, which was worse on arrival. She also reports recent dysuria. Chest x-ray was suggestive of bilateral pleural effusions. She has received several doses of IV furosemide, and had 3.3 L of urine output as of 659 this morning, continues to have good urine output in the meantime. She notes feeling markedly improved. Although residual lower extremity edema is present, she states it is improved. 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 History of coronary heart disease, previous coronary stents placed many years ago in [place], anatomical details unavailable. History of decubitus ulcer on her left hip after which she spent 6 months at [facility] before returning to home. Chronic atrial fibrillation Allergies Allergy/AdvReac Type Severity Reaction Status Date / Time clofibrate Allergy Severe SWELLING Verified 03/05/19 12:21 rabeprazole Allergy Intermediate SOB/COUGHING Verified 03/05/19 12:21 AND THROAT FELT TIGHT/ABD. CRAMPING fexofenadine Allergy Mild RASH Verified 03/05/19 12:21 Fibrate Anti-Lipidemics Allergy Mild SWELLING Verified 03/05/19 12:21 fluvastatin Allergy Mild HIVES Verified 03/05/19 12:21 metformin Allergy Mild URINARY Verified 03/05/19 12:21 FREQUENCY/RASH/ITCH morphine Allergy Mild ITCHY/HIVES Verified 03/05/19 12:21 moxifloxacin Allergy Mild ITCHY/NAUSE Verified 03/05/19 12:21 A Penicillins Allergy Mild HIVES Verified 03/05/19 14:48 Quinolones Allergy Mild RASH Verified 03/05/19 12:21 chlorpropamide Allergy Unknown UNKNOWN Verified 03/05/19 12:21 NSAIDS (Non-Steroidal Allergy Unknown UNKNOWN Verified 03/05/19 12:21 Anti-Inflamma Sulfa (Sulfonamide Allergy Unknown UNKNOWN Verified 03/05/19 12:21 Antibiotics) blue dye AdvReac Mild MYALGIAS Verified 03/05/19 12:21 AND CRAMPS codeine AdvReac Mild FEELS Verified 03/05/19 12:21 "HIGH" ON/ITCHING dexlansoprazole AdvReac Mild MYALGIAS Verified 03/05/19 12:21 AND CRAMPS gemfibrozil AdvReac Mild ABDOMINAL Verified 03/05/19 12:21 CRAMPS AND DIZZINESS lisinopril AdvReac Mild COUGH Verified 03/05/19 12:21 lorazepam AdvReac Mild 0 Verified 03/05/19 12:21 rofecoxib AdvReac Mild INDIGESTION Verified 03/05/19 12:21 Home Medications Home Medications Medication Instructions Recorded Confirmed Type albuterol sulfate HFA 90 2 puffs INH Q4H PRN gm 01/22/19 03/05/19 History mcg/actuation aerosol inhaler amlodipine 10 mg tablet 10 mg PO DAILY 01/22/19 03/05/19 History aspirin 81 mg tablet,delayed 81 mg PO DAILY 01/22/19 03/05/19 History release azelastine 137 mcg (0.1 %) nasal 1 sprays INTNAS BID 01/22/19 03/05/19 History spray aerosol docusate sodium 100 mg capsule 100 mg PO BID 01/22/19 03/05/19 History hydrocortisone 2.5 % topical cream 1 appln TOP BID PRN 01/22/19 03/05/19 History lorazepam 0.5 mg tablet 0.25 mg PO TID PRN tab 01/22/19 03/05/19 History losartan 25 mg tablet 12.5 mg PO DAILY tab 01/22/19 03/05/19 History metoprolol tartrate 50 mg tablet 12.5 mg PO BID tab 01/22/19 03/05/19 History montelukast 10 mg tablet 10 mg PO QPM 01/22/19 03/05/19 History nystatin 100,000 unit/gram topical 1 appln TOP BID 01/22/19 03/05/19 History cream zinc oxide 22 % topical cream 20 % TOP TID gm 01/22/19 03/05/19 History allopurinol 200 mg PO DAILY 03/05/19 03/05/19 History calcium carbonate 400 mg PO TIDM 03/05/19 03/05/19 History docusate sodium 100 mg PO BID 03/05/19 03/05/19 History fluticasone propion-salmeterol 1 inh INHALATION BID 03/05/19 03/05/19 History [Advair Diskus] fluticasone propionate [Flonase 2 spray INTRANASAL DAILY 03/05/19 03/05/19 History Allergy Relief] furosemide 40 mg PO BID 03/05/19 03/05/19 History insulin glargine [Basaglar KwikPen 28 unit SUBCUT DAILY 03/05/19 03/05/19 History U-100 Insulin] loratadine 10 mg PO DAILY 03/05/19 03/05/19 History multivitamin 1 tab PO DAILY 03/05/19 03/05/19 History omeprazole 20 mg PO DAILY 03/05/19 03/05/19 History sennosides-docusate sodium 1 tab PO BID 03/05/19 03/05/19 History [Senna-S] warfarin 2.5 mg PO UD 03/05/19 03/05/19 History warfarin 5 mg PO UD 03/05/19 03/05/19 History Patient History Medical History Anemia (Chronic) Asthma (Chronic) CAD (coronary atherosclerotic disease) (Chronic) CKD (chronic kidney disease) stage 4, GFR 15-29 ml/min (Chronic) Diabetes (Chronic) GERD (gastroesophageal reflux disease) (Chronic) HTN, goal to be determined (Chronic) Hyperparathyroidism (Chronic) Obesity (Chronic) PVD (peripheral vascular disease) (Chronic) Surgical History H/O right coronary artery stent placement (Resolved) S/P abdominal hysterectomy (Resolved) S/P cholecystectomy (Resolved) Social History Preferred Language: Maltese Communication Ability: Effective Visual Impairment: Limited Hearing Ability: Hard of Hearing 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 Beliefs That Will Affect Care: None marital status: / Current Living Situation: Personal Care Facility Current Living Situation Comment: [facility] current occupational status: retired Other Information That Helps Us Care for You: No Feels Safe at Home: Yes Safety Concerns: Feels Safe At This Time Smoking Status: Never smoker Hx Alcohol Use: No Hx Substance Use: No Physical Exam Physical Exam: General: no acute distress and stated age Eyes: conjunctiva are pink and non-injected, sclera clear Neck: normal jugular venous pulse, no hepatojugular reflux Chest: normal shape and normal respiratory effort Lungs: Mildly decreased breath sounds at the base Cardiac Exam: -Regular rhythm, 1/6 systolic murmur Abdomen: abdomen soft, non-tender, no abnormal masses and no hepatosplenomegaly Extremities: 1+ bilateral lower extremity edema Neuro:awake, coversant, follows commands, no focal motor deficits Results & Data Vital Signs (Past 12 Hours) Vital Signs Temp Pulse Resp BP BP Pulse Ox Pulse Ox 03/06/19 19:45 36.3 C L 65 19 150/65 H 96 03/06/19 15:41 36.5 C 66 19 142/59 H 93 03/06/19 11:37 96 03/06/19 11:28 36.3 C L 60 21 149/63 H 98 Laboratory Results Coagulation INR 03/06/2019: 2 03/06/19 Range/Units 06:02 PT 19.8 H (9.0-12.0) Seconds CBC 03/06/19 Range/Units 06:02 WBC 6.02 (4.8-10.8) K/uL RBC 3.25 L (4.2-5.4) M/uL Hgb 10.2 L (12.0-16.0) g/dL Hct 31.5 L (37-47) % Plt Count 169 (130-400) K/uL Comprehensive Metabolic Panel 03/06/19 Range/Units 06:02 Sodium 140 (136-145) mmol/L Potassium 4.3 (3.5-5.1) mmol/L Chloride 105 (98-107) mmol/L Carbon Dioxide 33 H (21-32) mmol/L BUN 48 H (7-18) mg/dl Creatinine 2.03 H (0.6-1.2) mg/dl Glucose 93 (70-99) mg/dl Calcium 9.1 (8.5-10.1) mg/dl Intake and Output 03/06/19 03/06/19 03/06/19 06:59 14:59 22:59 Intake Total 120 / 645 915 / 965 50 / 965 Output Total 300 / 3351 500 / 500 Balance -180 / -2706 415 / 465 50 / 465 Intake: IV 50 / 50 Rocephin 2,000 mg In D5w 50 ml 50 / 50 @ 100 mls/hr IV Q24H [facility] Rx#: [id number] Oral 120 / 595 915 / 915 Output: Urine Amount (Catheter) 300 / 300 500 / 500 Espinosa/Indwelling 300 / 300 500 / 500 Other: Weight 107.2 kg 107.2 kg Patient Weight 03/07/19 06:59 Weight 107.2 kg Diagnostic Findings EKG performed 03/05/2019 revealed atrial fibrillation 70 bpm, age undetermined anteroseptal infarction with poor R wave progression noted in leads V2 and V3, unchanged compared to 2015. Repeat EKG 03/06/2019: Atrial fibrillation at 52 bpm, ongoing septal infarction pattern, unchanged, no significant ST changes
[2019-03-06] MEDS: AZELASTINE SCH (20:57)
[2019-03-06] MEDS: MONTELUKAST SODIUM 10 MG TABLET PO SCH (21:37)
[2019-03-06] MEDS ORDERED: D5W AND NSS 1,000 ML IV SCH (22:15)
[2019-03-06] MEDS: ACETAMINOPHEN 325 MG TAB PO PRN (22:22)
[2019-03-07 06:35] LABS: Basophils # (auto) 0.04 K/uL (0-0.2); Basophils % (auto) 0.7 %; Eosinophils # (auto) 0.26 K/uL (0-0.5); Eosinophils % (auto) 4.5 %; Hematocrit (blood only) 31.8 % (37-47); Hemoglobin 10.4 g/dL (12.0-16.0); Immature Granulocytes # (auto) 0.01 K/uL (0.00-0.02); Immature Granulocytes % (auto) 0.2 %; Lymphocytes # (auto) 1.81 K/uL (1.2-3.4); Lymphocytes % (auto) 31.4 %; Mean Corpuscular Hgb Conc 32.7 g/dL (32-36); Mean Corpuscular Volume 95.8 fL (80-100); Mean Platelet Volume 10.8 fL (7.4-10.4); Monocytes # (auto) 0.39 K/uL (0.11-0.59); Monocytes % (auto) 6.8 %; Neutrophils # (auto) 3.26 K/uL (1.4-6.5); Neutrophils % (auto) 56.4 %; Platelet Count 185 K/uL (130-400); RDW Standard Deviation 52.5 fL (36.4-46.3); Red Blood Count 3.32 M/uL (4.2-5.4); White Blood Count 5.77 K/uL (4.8-10.8)
[2019-03-07 06:42] LABS: INR 1.6 (0.9-1.1); Prothrombin Time 16.1 Seconds (9.0-12.0)
[2019-03-07 07:05] LABS: Albumin Level 2.5 gm/dl (3.4-5.0); BUN Creatinine Ratio 28.9 (10-20); Calcium 9.1 mg/dl (8.5-10.1); Creatinine Clr Calc Pharmacy 21.1 ml/min; Est GFR (African American) 22.7; Est GFR (Non-African American) 19.6; Magnesium 2.2 mg/dl (1.8-2.4); Potassium 4.5 mmol/L (3.5-5.1)
[2019-03-07 07:08] LABS: Albumin Globulin Ratio 0.7 (0.9-2); Bilirubin,Total 0.2 mg/dl (0.2-1); Globulin 3.8 gm/dl (2.5-4.0); Total Protein 6.3 gm/dl (6.4-8.2)
[2019-03-07] MEDS: INSULIN ASPART 100 UNITS/ML 3 ML PEN SC SCH ×5 (08:21→22:11)
[2019-03-07] MEDS: INSULIN GLARGINE SOLOSTAR 100 UNITS/ML 3 ML PEN SQ SCH (08:22)
[2019-03-07] MEDS: DOCUSATE SODIUM 100 MG CAP PO SCH ×2 (08:23→21:50)
[2019-03-07] MEDS: FUROSEMIDE 40 MG in SYRINGE 0 ML IV SCH (08:23)
[2019-03-07] MEDS: FLUTICASONE/SALMETEROL 250/50 (ADVAIR) 14 PUFF/1 INHALER INH SCH ×2 (08:23→21:49)
[2019-03-07] MEDS: DOCUSATE SODIUM/SENNA 50/8.6MG TAB PO SCH ×2 (08:23→21:52)
[2019-03-07] MEDS: AZELASTINE SCH ×2 (08:24→21:51)
[2019-03-07] MEDS: METOPROLOL TARTRATE 25 MG TAB PO SCH (08:24)
[2019-03-07] MEDS: FLUTICASONE PROPIONATE NA SPR 16 GM BTL SCH (08:25)
[2019-03-07] MEDS: LORATADINE 10 MG TAB PO SCH (09:13)
[2019-03-07] MEDS: PANTOprazole 40 MG TAB PO SCH (09:13)
[2019-03-07] MEDS: ASPIRIN 81 MG ECTAB PO SCH (09:13)
[2019-03-07] MEDS: ALLOPURINOL 100 MG TAB PO SCH (09:14)
[2019-03-07] MEDS: AMLODIPINE BESYLATE 5 MG TAB PO SCH (09:14)
--- NOTE | 2019-03-07 13:38 | XRay Report ---
TWO VIEW CHEST CLINICAL HISTORY: Follow-up airspace consolidation. FINDINGS: AP and lateral chest radiographs are compared to study dated 03/05/2019 and correlated with chest CT dated 08/31/2015. The AP view is degraded by patient rotation. The heart is mildly enlarged a nd there is atherosclerotic calcification of the thoracic aorta. The pulmonary vasculature is noncong ested. There are small pleural effusions with bibasilar airspace opacities. There is no pneumothorax. The skeletal structures are osteopenic. Degenerative change and scoliosis are noted in the thoracic spine. Arthritic change is seen in the shoulders. IMPRESSION: 1. Cardiomegaly without radiographic evidence of congestive failure. 2. Small pleural effusions with bibasilar airspace opacities. This likely represents atelectasis. Cli nical correlation will be required. Electronically signed by: Dinh Skelton M.D. 03/07/2019 1:36 PM
--- NOTE | 2019-03-07 15:49 | Hospitalist Progress Note ---
Date of Service March 07, 2019 Assessment & Plan (1) CHF exacerbation: Acute on chronic Diastolic CHF exacerbation Hypoxia on admission -BNP 4400 on admission -admission CXR showed: Small bilateral pleural effusions with bibasilar opacities suggestive of atelectasis or pneumonitis. Mild cardiomegaly without overt pulmonary edema. -EF is 55 % with severely dilated left atrium -was started on on IV Lasix 40mg BID in place of home oral Lasix -patient breathing on room air as of 03/06/19 -follow up CXR on 03/07/19 :Cardiomegaly without radiographic evidence of congestive failure; Small pleural effusions with bibasilar airspace opacities. -imaging with overall improvements and with continued clinical stability, patient will be transition from IV lasix to home dose oral Lasix on 03/07/19 -Low sodium diet Chronic Atrial fibrillation -Rate Controlled -had changed Metoprolol 12.5 mg BID to daily to avoid night time bradycardia, continue single daily dose metoprolol -Continue Coumadin , INR is 1.6 on 03/07/19 which is first subtherapeutic INR, continue home regimen and adjust if needed CKD stage IV -hold home dose losartan while on increase diuretic during hospital stay CAD Peripheral vascular disease -continue aspirin, on metoprolol Urinary Tract Infection -speciation of urine culture with gram negative bacilli as pansensitive -patient has received ceftriaxone 2 gram IV daily from 03/05/19 to current, will continue for now -remove godfrey and do trial of void on 03/07/19, plan to repeat urine analysis when patient voids without godfrey CAD -Continue aspirin, metoprolol Asthma -Continue home inhalers -Nebs as needed 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 breathing on room air and has godfrey. She subjectively does not feel that her breathing is significantly better but lung exam is improved and Chest Xray imaging better. no labored breathing. no use of acessory muscles. no chest pain. no abdomen pain. no vomiting. no fever. patient has godfrey and will need trial of void Physical Exam Constitutional: WD/WN, vitals as above Eyes: PERRL, conjunctivae normal, anicteric sclerae EOM intact bilaterally ENMT: external ear and nose normal, oropharynx normal Neck: trachea midline, no thyromegaly normal visual inspection Respiratory: normal respiratory effort, lungs clear to auscultation Cardiovascular: Rate/Rhythm: + bradycardic and + irregularly irregular Gastrointestinal (Abdomen): normal bowel sounds, soft, nontender, no hepatosplenomegaly Musculoskeletal: Head/Neck/Chest: normocephalic and head atraumatic Neurologic: PERRL, EOMI, accommodation nl, no face palsy, no dysarthria CN's II-XI intact bilaterally Psychiatric: A+Ox3, euthymic affect Results & Data Vital Signs (Past 12 Hours) Vital Signs Temp Pulse Pulse Resp BP BP Pulse Ox 03/07/19 15:01 36.3 C L 60 20 157/82 H 97 03/07/19 11:30 36.3 C L 47 L 18 151/62 H 94 03/07/19 07:17 67 03/07/19 07:00 36.5 C 69 17 146/76 H 95 03/07/19 04:00 36.7 C 70 17 147/74 H 95 (1) CHF exacerbation Heart failure type: unspecified Qualified Code(s): I50.9 - Heart failure, unspecified
[2019-03-07] MEDS: cefTRIAXone SODIUM 2,000 MG in DEXTROSE 5% 50 ML IV SCH (17:06)
[2019-03-07] MEDS: FUROSEMIDE 40 MG TAB PO SCH (17:09)
[2019-03-07] MEDS: WARFARIN SOD 2.5 MG TAB PO SCH (21:50)
[2019-03-07] MEDS: MONTELUKAST SODIUM 10 MG TABLET PO SCH (21:52)
[2019-03-07 23:26] LABS: Appearance Urine Clear (Clear); Bacteria Urine Automated Negative (Negative); Bilirubin Urine Negative (Negative); Blood Urine Negative (Negative); Color Urine Yellow; Glucose Urine UA Negative (Negative); Ketones Urine Negative (Negative); Leukocyte Esterase Urine Trace (Negative); Nitrite Urine Negative (Negative); Protein Urine Negative (Negative); RBC Urine Automated 0-4 /hpf (0-4); Specific Gravity Urine 1.013 (1.000-1.030); Urobilinogen Urine Negative (Negative); pH Urine 6.5 (4.5-7.5)
[2019-03-08 06:50] LABS: INR 1.6 (0.9-1.1); Prothrombin Time 15.5 Seconds (9.0-12.0)
[2019-03-08 07:09] LABS: Albumin Level 2.6 gm/dl (3.4-5.0); BUN Creatinine Ratio 35.2 (10-20); Calcium 9.5 mg/dl (8.5-10.1); Est GFR (African American) 23.8; Est GFR (Non-African American) 20.5; Magnesium 2.2 mg/dl (1.8-2.4); Potassium 4.3 mmol/L (3.5-5.1)
[2019-03-08 07:12] LABS: Albumin Globulin Ratio 0.7 (0.9-2); Bilirubin,Total 0.2 mg/dl (0.2-1); Globulin 3.8 gm/dl (2.5-4.0); Total Protein 6.4 gm/dl (6.4-8.2)
[2019-03-08] MEDS: FLUTICASONE/SALMETEROL 250/50 (ADVAIR) 14 PUFF/1 INHALER INH SCH (08:52)
[2019-03-08] MEDS: LORATADINE 10 MG TAB PO SCH (08:52)
[2019-03-08] MEDS: DOCUSATE SODIUM 100 MG CAP PO SCH (08:53)
[2019-03-08] MEDS: ASPIRIN 81 MG ECTAB PO SCH (08:54)
[2019-03-08] MEDS: FLUTICASONE PROPIONATE NA SPR 16 GM BTL SCH (08:56)
[2019-03-08] MEDS: FUROSEMIDE 40 MG TAB PO SCH (08:57)
[2019-03-08] MEDS: AZELASTINE SCH (08:58)
[2019-03-08] MEDS: AMLODIPINE BESYLATE 5 MG TAB PO SCH (08:59)
[2019-03-08] MEDS: PANTOprazole 40 MG TAB PO SCH (08:59)
[2019-03-08] MEDS: DOCUSATE SODIUM/SENNA 50/8.6MG TAB PO SCH (08:59)
[2019-03-08] MEDS: ALLOPURINOL 100 MG TAB PO SCH (09:00)
[2019-03-08] MEDS ORDERED: SENNA 8.6 MG TAB PO SCH (09:00)
--- NOTE | 2019-03-08 09:02 | Hospitalist Progress Note ---
Date of Service March 08, 2019 Assessment & Plan (1) CHF exacerbation: Acute on chronic Diastolic CHF exacerbation Hypoxia on admission -BNP 4400 on admission -admission CXR showed: Small bilateral pleural effusions with bibasilar opacities suggestive of atelectasis or pneumonitis. Mild cardiomegaly without overt pulmonary edema. -EF is 55 % with severely dilated left atrium -was started on on IV Lasix 40mg BID in place of home oral Lasix -patient breathing on room air as of 03/06/19 -follow up CXR on 03/07/19 :Cardiomegaly without radiographic evidence of congestive failure; Small pleural effusions with bibasilar airspace opacities. -imaging with overall improvements and with continued clinical stability, patient will be transition from IV lasix to home dose oral Lasix on 03/07/19 -Low sodium diet -continue home Lasix 40 mg BID on discharge Chronic Atrial fibrillation -Rate Controlled -had changed Metoprolol 12.5 mg BID to daily to avoid night time bradycardia, continue single daily dose metoprolol -Continue Coumadin , INR is 1.6 on 03/07/19 which is first subtherapeutic INR, I NR continues to be 1.6 on 03/08/19 -discharge day INR is 1.6, will expect patient's INR levels to be between 2 to 3 as she continues her home dose coumadin and usual home diet but will recommend salt restrictions in the food to less than 2 grams as per congestive heart failure discharge instructions -Patient should have INR checked by outpatient providers while on coumadi CKD stage IV -may resume home dose losartan which was held while on IV Lasix CAD Peripheral vascular disease -continue aspirin, on metoprolol Urinary Tract Infection -speciation of urine culture with gram negative bacilli as pansensitive -patient has received ceftriaxone 2 gram IV daily from 03/05/19 to 03/07/19, will continue for now -remove godfrey and do trial of void on 03/07/19, repeat urine analysis when patient voided without godfrey with no bacteria -completed antibiotic treatment at this time CAD -Continue aspirin, metoprolol Asthma -Continue home inhalers 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 current use of insulin -HbA1c 7.2 -ISS, basal insulin while inpatient -patient may resume home dose insulin on discharge GERD -Continue PPI Chronic dysphagia -Pured diet DVT Px: Coumadin CODE STATUS: Full code patient's son Luis ([phone]; [phone]) Discharge Diagnosis Acute on chronic Diastolic CHF exacerbation, urinary tract infection, Diabetes Mellitus Type II controlled with jail current use of insulin, chronic atrial fibrillation, anticoagulated on coumadin, CKD stage IV Discharge to home -discharge day INR is 1.6, will expect patient's INR levels to be between 2 to 3 as she continues her home dose coumadin and usual home diet but will recommend salt restrictions in the food to less than 2 grams as per congestive heart failure discharge instructions -Patient should have INR checked by outpatient providers while on coumadin 03/11/2019 11:30 AM Provider Wendie Samaniego MD Department Nephrology [facility] 03/12/2019 10:00 AM Provider Kylah Carroll MD Department Internal Medicine [facility] 04/11/2019 4:00 PM Provider John Goldstein DO Department Cardiology [facility] CHF Instructions Call your Primary Care doctor if any of the following symptoms or problems start or get worse: * Shortness of breath or difficulty breathing * Wake up at night short of breath * Chest pain * Cough * Swelling of your hands, feet, or legs * More fatigued or tired with your normal activity * Palpitations - sudden fast heart beats WEIGHT * Weigh yourself every morning after using the bathroom. * Use the same scale. * Wear the same amount of clothing. * Write your weight down on a chart. * Call your Primary Care doctor if you gain more than 2-3 pounds in 1-2 days. MEDICATIONS * Use this discharge instruction sheet for medication instructions. * Take your medications at the time your doctor ordered. * Do not skip a dose of your medicines. * If you miss a dose of medicine, take it as soon as possible, but DO NOT DOUBLE A DOSE. * Read your medicine information when you get home. * Know all of the side effects of your medicine. If in doubt, ask your pharmacist * Call your Primary Care doctor's office if you have any side effects. * Be sure all of your doctors know what medicine and herbs you take (including cold, flu, and herbal medicine). Take the following with you to your follow-up doctor appointments: * Weight Chart * Medication List * List of questions Do not drink excessive alcohol, beer or wine. Subjective Patient was able to void without godfrey. urine analysis with no bacteria. patient breathing on room air and subjectively feels that her breathing is improved. no chest pain. no abdomen pain. no vomiting. heart rate controlled. chronic atrial fibrillation Physical Exam Constitutional: WD/WN, vitals as above Eyes: PERRL, conjunctivae normal, anicteric sclerae EOM intact bilaterally ENMT: external ear and nose normal, oropharynx normal Neck: trachea midline, no thyromegaly normal visual inspection Respiratory: normal respiratory effort, lungs clear to auscultation Cardiovascular: Rate/Rhythm: regular rhythm and + irregularly irregular Gastrointestinal (Abdomen): normal bowel sounds, soft, nontender, no hepatosplenomegaly Musculoskeletal: Head/Neck/Chest: normocephalic and head atraumatic Neurologic: PERRL, EOMI, accommodation nl, no face palsy, no dysarthria CN's II-XI intact bilaterally Psychiatric: A+Ox3, euthymic affect Results & Data Vital Signs (Past 12 Hours) Vital Signs Temp Pulse Resp BP BP Pulse Ox 03/08/19 07:00 36.7 C 70 20 136/75 95 03/08/19 04:31 36.7 C 71 19 148/79 H 95 03/07/19 23:05 36.5 C 75 20 168/74 H 98 (1) CHF exacerbation Heart failure type: unspecified Qualified Code(s): I50.9 - Heart failure, unspecified
--- NOTE | 2019-03-08 09:10 | Discharge Summary ---
Date of Service March 08, 2019 Admission HPI Per Admitting Provider Patient is an 83-year-old female with history of atrial fibrillation on chronic anticoagulation, CKD stage IV, coronary artery disease S/P stents, asthma, peripheral vascular disease,DM II, GERD, hypertension, hyperparathyroidism, dysphagia and other problems presents with shortness of breath, hypoxia. Patient is a very poor historian. Patient was evaluated by her PCP today for worsening shortness of breath and was found to be hypoxic at 80% on room air. She was sent to ED for further evaluation. Patient complains of worsening shortness of breath on exertion since last 2 days. Currently she is not on home oxygen. She was also noted to be hypoxic yesterday while getting physical therapy. Reports bilateral lower extremity edema which has been gradually worsening since 1 week. Also reports having dysuria since 3 weeks duration, denies hematuria, increased urinary frequency. She was noted to have small bilateral pleural effusions with bibasilar opacities suggestive of possible atelectasis. Procalcitonin was normal. She was hypoxic at 88% on room air in ED. Denies any history of chest pain, dizziness, diaphoresis, cough, hemoptysis, fever, chills, headache, nausea, vomiting, abdominal pain, blood in stools, diarrhea, hematuria, recent change in medications Admission Exam Per Admitting Provider Physical Exam: Vitals signs as noted above General Appearance:Obese, no apparent distress Head: normocephalic, Atraumatic Eyes: normal inspection, EOMI Neck: supple, Trachea midline Respiratory/Chest: Normal breath sounds, + Basal Crackles Cardiovascular: Irregularly irregular ,No murmur Abdomen/GI:Soft, Non tender, Bowel sounds present Extremities/Musculoskelatal:normal inspection, 2 + B/L LE edema Neurologic/Psych:AAOX3, grossly no focal neurological deficits Skin: normal color, warm Principal Diagnosis Acute on chronic Diastolic CHF exacerbation, urinary tract infection, Diabetes Mellitus Type II 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, chronic atrial fibrillation, anticoagulated on coumadin, CKD stage IV Discharge Exam Constitutional WD/WN, vitals as above Eyes PERRL, conjunctivae normal, anicteric sclerae EOM intact bilaterally ENMT external ear and nose normal, oropharynx normal Neck trachea midline, no thyromegaly normal visual inspection Respiratory normal respiratory effort, lungs clear to auscultation Cardiovascular Rate/Rhythm: regular rhythm and + irregularly irregular Gastrointestinal (Abdomen) normal bowel sounds, soft, nontender, no hepatosplenomegaly Musculoskeletal Head/Neck/Chest: normocephalic and head atraumatic Neurologic PERRL, EOMI, accommodation nl, no face palsy, no dysarthria CN's II-XI intact bilaterally Psychiatric A+Ox3, euthymic affect Discharge Data Allergies Allergy/AdvReac Type Severity Reaction Status Date / Time clofibrate Allergy Severe SWELLING Verified 03/05/19 12:21 rabeprazole Allergy Intermediate SOB/COUGHING Verified 03/05/19 12:21 AND THROAT FELT TIGHT/ABD. CRAMPING fexofenadine Allergy Mild RASH Verified 03/05/19 12:21 Fibrate Anti-Lipidemics Allergy Mild SWELLING Verified 03/05/19 12:21 fluvastatin Allergy Mild HIVES Verified 03/05/19 12:21 metformin Allergy Mild URINARY Verified 03/05/19 12:21 FREQUENCY/RASH/ITCH morphine Allergy Mild ITCHY/HIVES Verified 03/05/19 12:21 moxifloxacin Allergy Mild ITCHY/NAUSE Verified 03/05/19 12:21 A Penicillins Allergy Mild HIVES Verified 03/05/19 14:48 Quinolones Allergy Mild RASH Verified 03/05/19 12:21 chlorpropamide Allergy Unknown UNKNOWN Verified 03/05/19 12:21 NSAIDS (Non-Steroidal Allergy Unknown UNKNOWN Verified 03/05/19 12:21 Anti-Inflamma Sulfa (Sulfonamide Allergy Unknown UNKNOWN Verified 03/05/19 12:21 Antibiotics) blue dye AdvReac Mild MYALGIAS Verified 03/05/19 12:21 AND CRAMPS codeine AdvReac Mild FEELS Verified 03/05/19 12:21 "HIGH" ON/ITCHING dexlansoprazole AdvReac Mild MYALGIAS Verified 03/05/19 12:21 AND CRAMPS gemfibrozil AdvReac Mild ABDOMINAL Verified 03/05/19 12:21 CRAMPS AND DIZZINESS lisinopril AdvReac Mild COUGH Verified 03/05/19 12:21 lorazepam AdvReac Mild 0 Verified 03/05/19 12:21 rofecoxib AdvReac Mild INDIGESTION Verified 03/05/19 12:21 Consultations 03/05/19 13:02 ED Decision to Admit Stat 03/05/19 15:07 Consult Cardiology Routine Consult Case Management - Discharge Planning Routine Hospital Course (1) CHF exacerbation: Acute on chronic Diastolic CHF exacerbation Hypoxia on admission -BNP 4400 on admission -admission CXR showed: Small bilateral pleural effusions with bibasilar opacities suggestive of atelectasis or pneumonitis. Mild cardiomegaly without overt pulmonary edema. -EF is 55 % with severely dilated left atrium -was started on on IV Lasix 40mg BID in place of home oral Lasix -patient breathing on room air as of 03/06/19 -follow up CXR on 03/07/19 :Cardiomegaly without radiographic evidence of congestive failure; Small pleural effusions with bibasilar airspace opacities. -imaging with overall improvements and with continued clinical stability, patient will be transition from IV lasix to home dose oral Lasix on 03/07/19 -Low sodium diet -continue home Lasix 40 mg BID on discharge Chronic Atrial fibrillation -Rate Controlled -had changed Metoprolol 12.5 mg BID to daily to avoid night time bradycardia, continue single daily dose metoprolol -Continue Coumadin , INR is 1.6 on 03/07/19 which is first subtherapeutic INR, INR continues to be 1.6 on 03/08/19 -discharge day INR is 1.6, will expect patient's INR levels to be between 2 to 3 as she continues her home dose coumadin and usual home diet but will recommend salt restrictions in the food to less than 2 grams as per congestive heart failure discharge instructions -Patient should have INR checked by outpatient providers while on coumadi CKD stage IV -may resume home dose losartan which was held while on IV Lasix CAD Peripheral vascular disease -continue aspirin, on metoprolol Urinary Tract Infection -speciation of urine culture with gram negative bacilli as pansensitive -patient has received ceftriaxone 2 gram IV daily from 03/05/19 to 03/07/19, will continue for now -remove godfrey and do trial of void on 03/07/19, repeat urine analysis when patient voided without godfrey with no bacteria -completed antibiotic treatment at this time CAD -Continue aspirin, metoprolol Asthma -Continue home inhalers Diabetes Mellitus Type II 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 -HbA1c 7.2 -ISS, basal insulin while inpatient -patient may resume home dose insulin on discharge GERD -Continue PPI Chronic dysphagia -Pured diet DVT Px: Coumadin CODE STATUS: Full code patient's son Luis ([phone]; [phone]) Discharge Diagnosis Acute on chronic Diastolic CHF exacerbation, urinary tract infection, Diabetes Mellitus Type II controlled with prison current use of insulin, chronic atrial fibrillation, anticoagulated on coumadin, CKD stage IV Discharge to home -discharge day INR is 1.6, will expect patient's INR levels to be between 2 to 3 as she continues her home dose coumadin and usual home diet but will recommend salt restrictions in the food to less than 2 grams as per congestive heart failure discharge instructions -Patient should have INR checked by outpatient providers while on coumadin 03/11/2019 11:30 AM Provider Wendie Samaniego MD Department Nephrology [facility] 03/12/2019 10:00 AM Provider Kylah Carroll MD Department Internal Medicine [facility] 04/11/2019 4:00 PM Provider John Goldstein DO Department Cardiology [facility] CHF Instructions Call your Primary Care doctor if any of the following symptoms or problems start or get worse: * Shortness of breath or difficulty breathing * Wake up at night short of breath * Chest pain * Cough * Swelling of your hands, feet, or legs * More fatigued or tired with your normal activity * Palpitations - sudden fast heart beats WEIGHT * Weigh yourself every morning after using the bathroom. * Use the same scale. * Wear the same amount of clothing. * Write your weight down on a chart. * Call your Primary Care doctor if you gain more than 2-3 pounds in 1-2 days. MEDICATIONS * Use this discharge instruction sheet for medication instructions. * Take your medications at the time your doctor ordered. * Do not skip a dose of your medicines. * If you miss a dose of medicine, take it as soon as possible, but DO NOT DOUBLE A DOSE. * Read your medicine information when you get home. * Know all of the side effects of your medicine. If in doubt, ask your pharmacist * Call your Primary Care doctor's office if you have any side effects. * Be sure all of your doctors know what medicine and herbs you take (including cold, flu, and herbal medicine). Take the following with you to your follow-up doctor appointments: * Weight Chart * Medication List * List of questions Do not drink excessive alcohol, beer or wine. Total Time Total Time Spent Total Time Spent (In Minutes): 40 Total Time Includes: Examination of the Patient, Discharge Planning, Medication Reconciliation and Communication With Other Providers Discharge Plan Discharge Items Patient Disposition: Home - Home Health Services Reason For Visit: SHORTNESS OF BREATH Discharge Diagnosis: Acute on chronic Diastolic CHF exacerbation, urinary tract infection, Diabetes Mellitus Type II 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, chronic atrial fibrillation, anticoagulated on coumadin, CKD stage IV Condition: Good Discharge Goals: Improve disease control Activity: Resume your previous activity Non-emergency contact: Primary Care Provider Call non-emergency contact if: you have any medication questions Follow-up/Referrals: Agustina Mock DO [Primary Care Provider] - Diet: Carb Consistent or DM2 and Low Sodium (2gm) Diet Texture: Pureed (blended smooth) Addtl Provider Instructions: Discharge to home -discharge day INR is 1.6, will expect patient's INR levels to be between 2 to 3 as she continues her home dose coumadin and usual home diet but will recommend salt restrictions in the food to less than 2 grams as per congestive heart failure discharge instructions -Patient should have INR checked by outpatient providers while on coumadin 03/11/2019 11:30 AM Provider Wendie Samaniego MD Department Nephrology [facility] 03/12/2019 10:00 AM Provider Kylah Carroll MD Department Internal Medicine [facility] 04/11/2019 4:00 PM Provider John Goldstein DO Department Cardiology [facility] CHF Instructions Call your Primary Care doctor if any of the following symptoms or problems start or get worse: * Shortness of breath or difficulty breathing * Wake up at night short of breath * Chest pain * Cough * Swelling of your hands, feet, or legs * More fatigued or tired with your normal activity * Palpitations - sudden fast heart beats WEIGHT * Weigh yourself every morning after using the bathroom. * Use the same scale. * Wear the same amount of clothing. * Write your weight down on a chart. * Call your Primary Care doctor if you gain more than 2-3 pounds in 1-2 days. MEDICATIONS * Use this discharge instruction sheet for medication instructions. * Take your medications at the time your doctor ordered. * Do not skip a dose of your medicines. * If you miss a dose of medicine, take it as soon as possible, but DO NOT DOUBLE A DOSE. * Read your medicine information when you get home. * Know all of the side effects of your medicine. If in doubt, ask your pharmacist * Call your Primary Care doctor's office if you have any side effects. * Be sure all of your doctors know what medicine and herbs you take (including cold, flu, and herbal medicine). Take the following with you to your follow-up doctor appointments: * Weight Chart * Medication List * List of questions Do not drink excessive alcohol, beer or wine. Prescriptions: Continued albuterol sulfate 90 mcg/actuation HFA aerosol inhaler 2 puffs INH Q4H PRN (Reason: wheezing) RF: 0 amlodipine [Norvasc] 10 mg tablet 10 mg PO DAILY RF: 0 aspirin [Adult Aspirin Regimen] 81 mg tablet,delayed release (DR/EC) 81 mg PO DAILY RF: 0 azelastine 137 mcg (0.1 %) aerosol,spray 1 sprays INTNAS BID RF: 0 docusate sodium [Colace] 100 mg capsule 100 mg PO BID RF: 0 hydrocortisone 2.5 % cream 1 appln TOP BID PRN (Reason: Rash) RF: 0 lorazepam [Ativan] 0.5 mg tablet 0.25 mg PO TID PRN (Reason: Anxiety) RF: 0 losartan 25 mg tablet 12.5 mg PO DAILY RF: 0 metoprolol tartrate [Lopressor] 50 mg tablet 12.5 mg PO BID RF: 0 montelukast [Singulair] 10 mg tablet 10 mg PO QPM RF: 0 nystatin 100,000 unit/gram cream 1 appln TOP BID RF: 0 zinc oxide 22 % cream 20 % TOP TID RF: 0 multivitamin Tablet 1 tab PO DAILY RF: 0 furosemide 40 mg tablet 40 mg PO BID RF: 0 sennosides-docusate sodium [Senna-S] 8.6-50 mg Tablet 1 tab PO BID RF: 0 warfarin 2.5 mg tablet 2.5 mg PO UD RF: 0 warfarin 2.5 mg tablet 5 mg PO UD RF: 0 allopurinol 100 mg tablet 200 mg PO DAILY RF: 0 omeprazole 20 mg Capsule,Delayed Release(Dr/Ec) 20 mg PO DAILY RF: 0 fluticasone propionate [Flonase Allergy Relief] 50 mcg/actuation [place],Suspension 2 spray INTRANASAL DAILY RF: 0 Basaglar KwikPen U-100 Insulin 100 unit/mL (3 mL) insulin pen 28 unit subcut DAILY RF: 0 calcium carbonate 400 mg/5 mL Suspension 400 mg PO TIDM RF: 0 fluticasone propion-salmeterol [Advair Diskus] 250-50 mcg/dose Blister With Device 1 inh INHALATION BID RF: 0 docusate sodium 100 mg Tablet 100 mg PO BID RF: 0 loratadine 10 mg Tablet 10 mg PO DAILY RF: 0 Stand-Alone Forms: [facility] Discharge Orders: Discharge Order (Routine); Ordered 03/08/19 Ordered By: Meng Lang Admission Data Admit Date/Time: 03/05/19 13:59 Attending Provider: Meng Lang Admit Provider: Carlos Sierra Primary Care Provider: Agustina Mock Other Providers: Carlos Sierra ; Aguila Lee Service: Telemetry Medical
[2019-03-08] MEDS: METOPROLOL TARTRATE 25 MG TAB PO SCH (09:54)
[2019-03-08] MEDS: INSULIN ASPART 100 UNITS/ML 3 ML PEN SC SCH (09:57)
[2019-03-08] MEDS: INSULIN GLARGINE SOLOSTAR 100 UNITS/ML 3 ML PEN SQ SCH (09:58)
== END 2019-03-08 11:55 | disposition home health service (06) | DRG 291 ==
LOC: ED 11:25 → 2N 13:59 → SUATTDRO 13:59 → 2N 14:40

== ENCOUNTER 2020-06-23 13:36 | Inpatient (IN) ==
[2020-06-23] MEDS ORDERED: SODIUM CHLORIDE 0.9% 1000ML 500 ML IV ONE (13:53)
[2020-06-23 14:01] LABS: Basophils # (auto) 0.01 K/uL (0-0.2); Basophils % (auto) 0.1 %; Hematocrit (blood only) 40.4 % (37-47); Hemoglobin 13.4 g/dL (12.0-16.0); Immature Granulocytes # (auto) 0.05 K/uL (0.00-0.02); Immature Granulocytes % (auto) 0.3 %; Lymphocytes # (auto) 0.89 K/uL (1.2-3.4); Mean Corpuscular Hemoglobin 32.3 pg (25-34); Mean Corpuscular Hgb Conc 33.2 g/dL (32-36); Mean Corpuscular Volume 97.3 fL (80-100); Mean Platelet Volume 13.1 fL (7.4-10.4); Monocytes # (auto) 0.74 K/uL (0.11-0.59); Monocytes % (auto) 4.2 %; Neutrophils # (auto) 16.02 K/uL (1.4-6.5); Neutrophils % (auto) 90.4 %; Platelet Count 181 K/uL (130-400); RDW Coefficient of Variation 16.8 % (11.5-14.5); Red Blood Count 4.15 M/uL (4.2-5.4); White Blood Count 17.71 K/uL (4.8-10.8)
[2020-06-23 14:30] LABS: Albumin Globulin Ratio 0.6 (0.9-2); Albumin Level 2.5 gm/dl (3.4-5.0); BUN Creatinine Ratio 24.3 (10-20); Bilirubin,Total 0.8 mg/dl (0.2-1); Calcium 9.3 mg/dl (8.5-10.1); Creatinine Clr Calc Pharmacy 12.8 ml/min; Est GFR (African American) 15.2; Est GFR (Non-African American) 13.1; Magnesium 2.4 mg/dl (1.8-2.4); Total Protein 6.5 gm/dl (6.4-8.2); Troponin I 0.574 ng/ml (0-0.045)
[2020-06-23 14:57] LABS: Appearance Urine Cloudy (Clear); Bacteria Urine Automated 4+ (Negative); Blood Urine Negative (Negative); Color Urine Dark Yellow; Epithelial Cell Urine Auto 0-5 /lpf (0-5); Glucose Urine UA Negative (Negative); Ketones Urine Trace (Negative); Leukocyte Esterase Urine 3+ (Negative); Nitrite Urine Negative (Negative); Protein Urine 1+ (Negative); RBC Urine Automated 0-4 /hpf (0-4); Specific Gravity Urine 1.014 (1.000-1.030); Urobilinogen Urine Negative (Negative); WBC Urine Automated >30 /hpf (0-5)
--- NOTE | 2020-06-23 15:05 | Emergency Department Note ---
Impression & Plan Urinary tract infection, Acute kidney injury, Fever, Abnormal EKG ED Provider Note NAME: JOSE GODINEZ AGE: 89 SEX: F : 1930 ARRIVES VIA: Ambulance INFORMANT: Patient, prehospital personnel ED PROVIDER(S): Fernando Warren DO CHIEF COMPLAINT: Fever HPI: The patient is an 89-year-old female who presented to the emergency depa rtment from a personal [place] health care facility for an evaluation of difficulty breathing and fever. The patient has had exposure to COVID-19 according to the prehospital personnel. She started having difficulty breathing yesterday. Difficulty breathing worsened throughout the day. She was noted to have a fever today and was sent to the emergency department for further evaluation. The patient herself does not complain of any swelling in the legs but does complain of difficulty breathing. She does complain of a cough which is nonproductive. She also complains of lower abdominal tenderness. She denies having any dysuria or frequency. She denies having any back pain or rashes. ROS: See above HPI for pertinent positives & negatives. A total of 10 systems reviewed and were otherwise negative. PAST MEDICAL HISTORY: See Below PAST SURGICAL HISTORY: See Below FAMILY HISTORY: See Below SOCIAL HISTORY: See Below HOME MEDICATIONS: See Below ALLERGIES: See Below VITALS: See Below PHYSICAL EXAMINATION: GENERAL: The patient is awake and alert. She is somewhat listless appearing. EYES: The conjunctivae are clear. The pupils are round and reactive. EARS, NOSE, MOUTH AND THROAT: The nose is without any evidence of any deformity. Mucous membranes are dry. NECK: The neck is nontender and supple. RESPIRATORY: Shallow respirations were noted. There were diminished breath sounds in the right lung field. CARDIOVASCULAR: Regular rate and rhythm noted there no murmurs rubs or gallops normal S1 normal S2. GASTROINTESTINAL: The abdomen is soft. Abdomen is nontender. MUSCULOSKELETAL/EXTREMITIES: There is no evidence of gross deformity full range of motion is noted in the hips and shoulders. SKIN: There is no obvious evidence of any rash. Trace pedal edema was noted b ilaterally. NEUROLOGIC: The patient is awake and alert. She makes good eye contact and follows commands. Strength is diminished but symmetric. MEDICAL DECISION MAKING: The patient is an 89-year-old female who presented to the emergency department for an evaluation of fever. The patient also complained of some shortness of breath as well as some flank pain. The patient presented from a personal [place] health care facility with known COVID-19 exposure. Her COVID-19 swab here was negative. The patient was treated with IV fluids and IV antibiotics for presumed urinary tract infection noted on urinalysis. She was also noted to have a significant elevation in her creatinine from baseline as well as an elevation in her white blood cell count. Given these findings I [facility] the [facility] have agreed to evaluate the patient in the emergency department for further management and disposition. The patient may require further imaging specifically of her chest abdomen and pelvis to evaluate the cause of her abnormal findings on EKG. Her troponin was also abnormal. Triage Nursing notes reviewed. Prior medical records reviewed Vital Signs: reviewed and remarkable for no significant abnormalities Differential diagnosis: Viral syndrome, otitis, pharyngitis, pneumonia, influenza, meningitis, urinary tract infection, sepsis, bacteremia, as well as other pathologies. ER treatment provided: See below Diagnostics interpreted by me: ECG: EKG was obtained in the emergency department. My interpretation is atrial fibrillation at [address] and lateral [address] depressions were noted. Inferior and lateral T wave versions were noted. This was compared to a tracing from September 162018. The T wave abnormalities are new compared to the previous tracing. Cardiac Monitoring: An order was placed for continuous cardiac monitoring. The monitor shows a rate of 95 bpm with sinus rhythm. Laboratory studies: As stated above and show below. Imaging studies: See below Consultation(s): [id number]: I discussed this case with Kuldeep Fair. [facility] ED COURSE: Procedures: none PDMP:reviewed and no issues Critical Care: None Past Med/Surg History Medical History Anemia Asthma CAD (coronary atherosclerotic disease) CKD (chronic kidney disease) stage 4, GFR 15-29 ml/min Diabetes GERD (gastroesophageal reflux disease) HTN, goal to be determined Hyperparathyroidism Obesity PVD (peripheral vascular disease) Surgical History H/O right coronary artery stent placement S/P abdominal hysterectomy S/P cholecystectomy Family History Other No pertinent family history in first degree relatives Social History Smoking Status: Never smoker Hx Alcohol Use: No Hx Substance Use: No Preferred Language: Ukrainian Communication Ability: Effective Visual Impairment: Limited Hearing Ability: Hard of Hearing Dye Winch Operator Required: No Beliefs That Will Affect Care: None marital status: / Current Living Situation: Personal Care Facility Current Living Situation Comment: [facility] current occupational status: retired Feels Safe at Home: Yes Assistive Devices: Denture - Upper, Denture - Lower, Glasses and Walker Allergies Allergies Allergy/AdvReac Type Severity Reaction Status Date / Time clofibrate Allergy Severe SWELLING Verified 09/16/19 00:55 rabeprazole Allergy Intermediate SOB/COUGHING Verified 09/16/19 00:55 AND THROAT FELT TIGHT/ABD. CRAMPING fexofenadine Allergy Mild RASH Verified 09/16/19 00:55 Fibrate Anti-Lipidemics Allergy Mild SWELLING Verified 09/16/19 00:55 fluvastatin Allergy Mild HIVES Verified 09/16/19 00:55 metformin Allergy Mild URINARY Verified 09/16/19 00:55 FREQUENCY/RASH/ITCH morphine Allergy Mild ITCHY/HIVES Verified 09/16/19 00:55 moxifloxacin Allergy Mild ITCHY/NAUSE Verified 09/16/19 00:55 A Penicillins Allergy Mild HIVES Verified 09/16/19 00:55 Quinolones Allergy Mild RASH Verified 09/16/19 00:55 chlorpropamide Allergy Unknown UNKNOWN Verified 09/16/19 00:55 NSAIDS (Non-Steroidal Allergy Unknown UNKNOWN Verified 09/16/19 00:55 Anti-Inflamma Sulfa (Sulfonamide Allergy Unknown UNKNOWN Verified 09/16/19 00:55 Antibiotics) blue dye AdvReac Mild MYALGIAS Verified 09/16/19 00:55 AND CRAMPS codeine AdvReac Mild FEELS Verified 09/16/19 00:55 "HIGH" ON/ITCHING dexlansoprazole AdvReac Mild MYALGIAS Verified 09/16/19 00:55 AND CRAMPS gemfibrozil AdvReac Mild ABDOMINAL Verified 09/16/19 00:55 CRAMPS AND DIZZINESS lisinopril AdvReac Mild COUGH Verified 09/16/19 00:55 lorazepam AdvReac Mild 0 Verified 09/16/19 00:55 rofecoxib AdvReac Mild INDIGESTION Verified 09/16/19 00:55 Home Meds Home Medications Medication Instructions Recorded Confirmed albuterol sulfate 90 mcg/actuation 2 puffs INH Q4H PRN gm 01/22/19 09/16/19 aerosol inhaler amlodipine 10 mg tablet 10 mg PO DAILY 01/22/19 09/16/19 azelastine 137 mcg (0.1 %) nasal 1 sprays INTNAS BID 01/22/19 09/16/19 spray aerosol docusate sodium 100 mg capsule 100 mg PO BID 01/22/19 09/16/19 hydrocortisone 2.5 % topical cream 1 appln TOP BID PRN 01/22/19 09/16/19 lorazepam 0.5 mg tablet 0.25 mg PO TID PRN tab 01/22/19 09/16/19 losartan 25 mg tablet 12.5 mg PO DAILY tab 01/22/19 09/16/19 montelukast 10 mg tablet 10 mg PO QPM 01/22/19 09/16/19 nystatin 100,000 unit/gram topical 1 appln TOP BID 01/22/19 09/16/19 cream zinc oxide 22 % topical cream 20 % TOP TID gm 01/22/19 09/16/19 Basaglar MariikPen U-100 Insulin 28 unit SUBCUT QID 03/05/19 09/16/19 allopurinol 200 mg PO DAILY 03/05/19 09/16/19 calcium carbonate 400 mg PO TIDM 03/05/19 09/16/19 fluticasone propion-salmeterol 1 inh INHALATION BID 03/05/19 09/16/19 [Advair Diskus] fluticasone propionate [Flonase 2 spray INTRANASAL DAILY 03/05/19 09/16/19 Allergy Relief] furosemide 40 mg PO BID 03/05/19 09/16/19 loratadine 10 mg PO DAILY 03/05/19 09/16/19 multivitamin 1 tab PO DAILY 03/05/19 09/16/19 omeprazole 20 mg PO DAILY 03/05/19 09/16/19 sennosides-docusate sodium 1 tab PO BID 03/05/19 09/16/19 [Senna-S] warfarin 2.5 mg PO UD 03/05/19 09/16/19 warfarin 5 mg PO UD 03/05/19 09/16/19 metoclopramide HCl 5 mg PO BIDM 06/23/19 09/16/19 metolazone 2.5 mg PO UD 06/23/19 09/16/19 metoprolol tartrate 12.5 mg PO DAILY 06/23/19 09/16/19 ticjlnccddmh-kqmj-lzfqd acid 1 tab PO DAILY 06/23/19 09/16/19 [Cerovite Advanced Formula] Previous Rx's Medication Instructions Recorded clobetasol 0.05 % topical cream 1 appln TOP DAILY #15 gm 04/29/19 Results & Data (ED) Vital Signs Vital Signs - 24 hr 06/23/20 13:53 06/23/20 14:00 06/23/20 14:15 Temperature 37.1 C Temperature Source Oral Pulse Rate 95 H 105 H 93 H Pulse Rate from SpO2 Sensor 102 H 100 H Respiratory Rate 22 22 24 Respiratory Effort / Characteristics Non-Labored Spontaneous Short of Breath Respiratory Depth Normal Blood Pressure 101/67 117/57 L 117/60 Blood Pressure Mean 78 81 89 Blood Pressure Position Lying Pulse Oximetry 96 97 97 Oxygen Delivery Method Room Air Sepsis Recent Fever Within 48 Hours Yes Sepsis New/Unexplained Change in Mental Status No Sepsis Action Taken by Nursing No Action Required 06/23/20 14:30 06/23/20 14:45 06/23/20 15:15 Temperature Temperature Source Pulse Rate 92 H 102 H 90 Pulse Rate from SpO2 Sensor 94 H 92 H Respiratory Rate 21 20 24 Respiratory Effort / Characteristics Respiratory Depth Blood Pressure 121/55 L 124/70 137/78 Blood Pressure Mean 82 85 91 Blood Pressure Position Pulse Oximetry 97 96 Oxygen Delivery Method Sepsis Recent Fever Within 48 Hours Sepsis New/Unexplained Change in Mental Status Sepsis Action Taken by Correction Medications Current Medication List: was personally reviewed by me Laboratory Data Attestation: I reviewed the patient's lab results. Result diagrams: 06/23/20 13:12 06/23/20 13:12 Lab Results 06/23/20 06/23/20 06/23/20 Range/Units 13:12 13:12 13:12 WBC 17.71 H (4.8-10.8) K/uL RBC 4.15 L (4.2-5.4) M/uL Hgb 13.4 (12.0-16.0) g/dL Hct 40.4 (37-47) % MCV 97.3 (80-100) fL MCH 32.3 (25-34) pg MCHC 33.2 (32-36) g/dL RDW Std Deviation 59.0 H (36.4-46.3) fL RDW Coeff of Adolph 16.8 H (11.5-14.5) % Plt Count 181 (130-400) K/uL MPV 13.1 H (7.4-10.4) fL Immature Gran % (Auto) 0.3 % Neut % (Auto) 90.4 % Lymph % (Auto) 5.0 % Ida % (Auto) 4.2 % Eos % (Auto) 0.0 % Baso % (Auto) 0.1 % Neut # (Auto) 16.02 H (1.4-6.5) K/uL Lymph # (Auto) 0.89 L (1.2-3.4) K/uL Ida # (Auto) 0.74 H (0.11-0.59) K/uL Eos # (Auto) 0.00 (0-0.5) K/uL Baso # (Auto) 0.01 (0-0.2) K/uL Immature Gran # (Auto) 0.05 H (0.00-0.02) K/uL PT Cancelled INR Cancelled APTT Cancelled PTT Ratio Cancelled Sodium 143 (136-145) mmol/L Potassium 5.0 (3.5-5.1) mmol/L Chloride 107 (98-107) mmol/L Carbon Dioxide 23 (21-32) mmol/L Anion Gap 13.0 H (3-11) BUN 73 H (7-18) mg/dl Creatinine 3.02 H (0.6-1.2) mg/dl Est Cr Clr Drug Dosing 12.8 ml/min Est GFR ( Amer) 15.2 Est GFR (Non-Af Amer) 13.1 BUN/Creatinine Ratio 24.3 H (10-20) Glucose 149 H (70-99) mg/dl Lactate (0.4-2.0) mmol/L Calcium 9.3 (8.5-10.1) mg/dl Magnesium 2.4 (1.8-2.4) mg/dl Total Bilirubin 0.8 (0.2-1) mg/dl AST 15 (15-37) U/L ALT 10 L (12-78) U/L Alkaline Phosphatase 104 (45-117) U/L Troponin I 0.574 H* (0-0.045) ng/ml Total Protein 6.5 (6.4-8.2) gm/dl Albumin 2.5 L (3.4-5.0) gm/dl Globulin 4.0 (2.5-4.0) gm/dl Albumin/Globulin Ratio 0.6 L (0.9-2) Procalcitonin (0-0.5) ng/ml Specimen Hemolysis Urine Color Urine Appearance (Clear) Urine pH (4.5-7.5) Ur Specific [place] (1.000-1.030) Urine Protein (Negative) Urine Glucose (UA) (Negative) Urine Ketones (Negative) Urine Blood (Negative) Urine Nitrite (Negative) Urine Bilirubin (Negative) Urine Urobilinogen (Negative) Ur Leukocyte Esterase (Negative) Urine WBC (Auto) (0-5) /hpf Urine RBC (Auto) (0-4) /hpf U Hyaline Cast (Auto) (0-5) /lpf U Epithel Cells (Auto) (0-5) /lpf Urine Bacteria (Auto) (Negative) Urine Yeast COVID-19 Eval Order COVID-19 PCR (Negative) Influenza Type A (PCR) (Neg) Influenza Type B (PCR) (Neg) 06/23/20 06/23/20 06/23/20 Range/Units 13:12 13:57 13:57 WBC (4.8-10.8) K/uL RBC (4.2-5.4) M/uL Hgb (12.0-16.0) g/dL Hct (37-47) % MCV (80-100) fL MCH (25-34) pg MCHC (32-36) g/dL RDW Std Deviation (36.4-46.3) fL RDW Coeff of Adolph (11.5-14.5) % Plt Count (130-400) K/uL MPV (7.4-10.4) fL Immature Gran % (Auto) % Neut % (Auto) % Lymph % (Auto) % Ida % (Auto) % Eos % (Auto) % Baso % (Auto) % Neut # (Auto) (1.4-6.5) K/uL Lymph # (Auto) (1.2-3.4) K/uL Ida # (Auto) (0.11-0.59) K/uL Eos # (Auto) (0-0.5) K/uL Baso # (Auto) (0-0.2) K/uL Immature Gran # (Auto) (0.00-0.02) K/uL PT INR APTT PTT Ratio Sodium (136-145) mmol/L Potassium (3.5-5.1) mmol/L Chloride (98-107) mmol/L Carbon Dioxide (21-32) mmol/L Anion Gap (3-11) BUN (7-18) mg/dl Creatinine (0.6-1.2) mg/dl Est Cr Clr Drug Dosing ml/min Est GFR ( Amer) Est GFR (Non-Af Amer) BUN/Creatinine Ratio (10-20) Glucose (70-99) mg/dl Lactate (0.4-2.0) mmol/L Calcium (8.5-10.1) mg/dl Magnesium (1.8-2.4) mg/dl Total Bilirubin (0.2-1) mg/dl AST (15-37) U/L ALT (12-78) U/L Alkaline Phosphatase (45-117) U/L Troponin I (0-0.045) ng/ml Total Protein (6.4-8.2) gm/dl Albumin (3.4-5.0) gm/dl Globulin (2.5-4.0) gm/dl Albumin/Globulin Ratio (0.9-2) Procalcitonin 0.69 H (0-0.5) ng/ml Specimen Hemolysis Urine Color Urine Appearance (Clear) Urine pH (4.5-7.5) Ur Specific [place] (1.000-1.030) Urine Protein (Negative) Urine Glucose (UA) (Negative) Urine Ketones (Negative) Urine Blood (Negative) Urine Nitrite (Negative) Urine Bilirubin (Negative) Urine Urobilinogen (Negative) Ur Leukocyte Esterase (Negative) Urine WBC (Auto) (0-5) /hpf Urine RBC (Auto) (0-4) /hpf U Hyaline Cast (Auto) (0-5) /lpf U Epithel Cells (Auto) (0-5) /lpf Urine Bacteria (Auto) (Negative) Urine Yeast COVID-19 Eval Order Covid19 Done at [facility] COVID-19 PCR (Negative) Influenza Type A (PCR) Neg for Influ A (Neg) Influenza Type B (PCR) Neg for Influ B (Neg) 06/23/20 06/23/20 06/23/20 Range/Units 13:57 14:06 15:10 WBC (4.8-10.8) K/uL RBC (4.2-5.4) M/uL Hgb (12.0-16.0) g/dL Hct (37-47) % MCV (80-100) fL MCH (25-34) pg MCHC (32-36) g/dL RDW Std Deviation (36.4-46.3) fL RDW Coeff of Adolph (11.5-14.5) % Plt Count (130-400) K/uL MPV (7.4-10.4) fL Immature Gran % (Auto) % Neut % (Auto) % Lymph % (Auto) % Ida % (Auto) % Eos % (Auto) % Baso % (Auto) % Neut # (Auto) (1.4-6.5) K/uL Lymph # (Auto) (1.2-3.4) K/uL Ida # (Auto) (0.11-0.59) K/uL Eos # (Auto) (0-0.5) K/uL Baso # (Auto) (0-0.2) K/uL Immature Gran # (Auto) (0.00-0.02) K/uL PT INR APTT PTT Ratio Sodium (136-145) mmol/L Potassium (3.5-5.1) mmol/L Chloride (98-107) mmol/L Carbon Dioxide (21-32) mmol/L Anion Gap (3-11) BUN (7-18) mg/dl Creatinine (0.6-1.2) mg/dl Est Cr Clr Drug Dosing ml/min Est GFR ( Amer) Est GFR (Non-Af Amer) BUN/Creatinine Ratio (10-20) Glucose (70-99) mg/dl Lactate 2.0 (0.4-2.0) mmol/L Calcium (8.5-10.1) mg/dl Magnesium (1.8-2.4) mg/dl Total Bilirubin (0.2-1) mg/dl AST (15-37) U/L ALT (12-78) U/L Alkaline Phosphatase (45-117) U/L Troponin I (0-0.045) ng/ml Total Protein (6.4-8.2) gm/dl Albumin (3.4-5.0) gm/dl Globulin (2.5-4.0) gm/dl Albumin/Globulin Ratio (0.9-2) Procalcitonin (0-0.5) ng/ml Specimen Hemolysis Urine Color Dark Yellow Urine Appearance Cloudy A (Clear) Urine pH 6.0 (4.5-7.5) Ur Specific [place] 1.014 (1.000-1.030) Urine Protein 1+ H (Negative) Urine Glucose (UA) Negative (Negative) Urine Ketones Trace H (Negative) Urine Blood Negative (Negative) Urine Nitrite Negative (Negative) Urine Bilirubin Negative (Negative) Urine Urobilinogen Negative (Negative) Ur Leukocyte Esterase 3+ H (Negative) Urine WBC (Auto) >30 H (0-5) /hpf Urine RBC (Auto) 0-4 (0-4) /hpf U Hyaline Cast (Auto) 1-5 (0-5) /lpf U Epithel Cells (Auto) 0-5 (0-5) /lpf Urine Bacteria (Auto) 4+ H (Negative) Urine Yeast Not Reportable COVID-19 Eval Order COVID-19 PCR NEGATIVE (Negative) Influenza Type A (PCR) (Neg) Influenza Type B (PCR) (Neg) 06/23/20 Range/Units 15:10 WBC (4.8-10.8) K/uL RBC (4.2-5.4) M/uL Hgb (12.0-16.0) g/dL Hct (37-47) % MCV (80-100) fL MCH (25-34) pg MCHC (32-36) g/dL RDW Std Deviation (36.4-46.3) fL RDW Coeff of Adolph (11.5-14.5) % Plt Count (130-400) K/uL MPV (7.4-10.4) fL Immature Gran % (Auto) % Neut % (Auto) % Lymph % (Auto) % Ida % (Auto) % Eos % (Auto) % Baso % (Auto) % Neut # (Auto) (1.4-6.5) K/uL Lymph # (Auto) (1.2-3.4) K/uL Ida # (Auto) (0.11-0.59) K/uL Eos # (Auto) (0-0.5) K/uL Baso # (Auto) (0-0.2) K/uL Immature Gran # (Auto) (0.00-0.02) K/uL PT Cancelled INR Cancelled APTT Cancelled PTT Ratio Cancelled Sodium (136-145) mmol/L Potassium (3.5-5.1) mmol/L Chloride (98-107) mmol/L Carbon Dioxide (21-32) mmol/L Anion Gap (3-11) BUN (7-18) mg/dl Creatinine (0.6-1.2) mg/dl Est Cr Clr Drug Dosing ml/min Est GFR ( Amer) Est GFR (Non-Af Amer) BUN/Creatinine Ratio (10-20) Glucose (70-99) mg/dl Lactate (0.4-2.0) mmol/L Calcium (8.5-10.1) mg/dl Magnesium (1.8-2.4) mg/dl Total Bilirubin (0.2-1) mg/dl AST (15-37) U/L ALT (12-78) U/L Alkaline Phosphatase (45-117) U/L Troponin I (0-0.045) ng/ml Total Protein (6.4-8.2) gm/dl Albumin (3.4-5.0) gm/dl Globulin (2.5-4.0) gm/dl Albumin/Globulin Ratio (0.9-2) Procalcitonin (0-0.5) ng/ml Specimen Hemolysis Urine Color Urine Appearance (Clear) Urine pH (4.5-7.5) Ur Specific [place] (1.000-1.030) Urine Protein (Negative) Urine Glucose (UA) (Negative) Urine Ketones (Negative) Urine Blood (Negative) Urine Nitrite (Negative) Urine Bilirubin (Negative) Urine Urobilinogen (Negative) Ur Leukocyte Esterase (Negative) Urine WBC (Auto) (0-5) /hpf Urine RBC (Auto) (0-4) /hpf U Hyaline Cast (Auto) (0-5) /lpf U Epithel Cells (Auto) (0-5) /lpf Urine Bacteria (Auto) (Negative) Urine Yeast COVID-19 Eval Order COVID-19 PCR (Negative) Influenza Type A (PCR) (Neg) Influenza Type B (PCR) (Neg) Administered Medications Discontinued Medications Sodium Chloride (Nss 1000ml) 500 mls @ 999 mls/hr IV .Q31M ONE Stop: 06/23/20 14:23 Last Infusion: 06/23/20 15:07 Dose: 0 mls/hr Documented by: [id number] Admin: 06/23/20 14:25 Dose: 999 mls/hr Documented by: [id number] Ceftriaxone Sodium (Rocephin) 1,000 mg in 50 mls @ 100 mls/hr IV NOW STA Stop: 06/23/20 15:35 Last Admin: 06/23/20 15:54 Dose: 100 mls/hr Documented by: [id number] Imaging Data Radiologist's Impression: KUB HISTORY: Generalized abdominal pain COMPARISON: None. FINDINGS: Mildly dilated gas-filled loops of small bowel seen within the right side of the abdomen. There is gas within the nondistended colon and stomach. Fi ndings favor a mild ileus. Vascular calcifications are noted. Cholecystectomy. No renal calculi. No ureteral calculi. No pneumoperitoneum or pneumatosis. IMPRESSION: A few mildly dilated gas-filled loops of small bowel seen within the right side of the abdomen. This may represent a mild ileus. No evidence for bowel obstruction. ACT 112: Negative or not required by law. Electronically signed by: Zoltan Correia M.D. 06/23/2020 4:00 PM Dictated: 06/23/20 1558 Transcribed: 06/23/20 1558 XR chest 1V portable CLINICAL HISTORY: SEPSIS COMPARISON STUDY: Chest radiograph September 16, 2019. FINDINGS: Lung volumes are diminished. There is mild left basilar opacity which favors atelectasis. Cardiomegaly is noted without evidence for pulmonary edema. There is no pneumothorax or pleural effusion. IMPRESSION: Low lung volumes with left basilar opacity that favors atelectasis. ACT 112: Negative or not required by law. Electronically signed by: Declan Person M.D. 06/23/2020 3:56 PM Dictated: 06/23/20 1554 Transcribed: 06/23/20 1555 Blood Pressure Blood Pressure Findings: Normal blood pressure Discharge Plan Visit Data Chief Complaint: Fever ED Provider: Fernando Warren Discharge Problem: Urinary tract infection, Acute kidney injury, Fever, Abnormal EKG Patient Disposition: Being Evaluated by Hospitalist Condition: Good Forms Stand Alone Forms: [facility] Prescriptions Prescriptions: No Action albuterol sulfate 90 mcg/actuation HFA aerosol inhaler 2 puffs INH Q4H PRN (Reason: wheezing) RF: 0 amlodipine [Norvasc] 10 mg tablet 10 mg PO DAILY RF: 0 azelastine 137 mcg (0.1 %) aerosol,spray 1 sprays INTNAS BID RF: 0 docusate sodium [Colace] 100 mg capsule 100 mg PO BID RF: 0 hydrocortisone 2.5 % cream 1 appln TOP BID PRN (Reason: Rash) RF: 0 lorazepam [Ativan] 0.5 mg tablet 0.25 mg PO TID PRN (Reason: Anxiety) RF: 0 losartan 25 mg tablet 12.5 mg PO DAILY RF: 0 montelukast [Singulair] 10 mg tablet 10 mg PO QPM RF: 0 nystatin 100,000 unit/gram cream 1 appln TOP BID RF: 0 zinc oxide 22 % cream 20 % TOP TID RF: 0 clobetasol 0.05 % cream 1 appln TOP DAILY Qty: 15 RF: 1 multivitamin Tablet 1 tab PO DAILY RF: 0 furosemide 40 mg tablet 40 mg PO BID RF: 0 sennosides-docusate sodium [Senna-S] 8.6-50 mg Tablet 1 tab PO BID RF: 0 warfarin 2.5 mg tablet 2.5 mg PO UD RF: 0 warfarin 2.5 mg tablet 5 mg PO UD RF: 0 allopurinol 100 mg tablet 200 mg PO DAILY RF: 0 omeprazole 20 mg Capsule,Delayed Release(Dr/Ec) 20 mg PO DAILY RF: 0 fluticasone propionate [Flonase Allergy Relief] 50 mcg/actuation [place],Suspension 2 spray INTRANASAL DAILY RF: 0 Basaglar KwikPen U-100 Insulin 100 unit/mL (3 mL) insulin pen 28 unit subcut QID RF: 0 calcium carbonate 400 mg/5 mL Suspension 400 mg PO TIDM RF: 0 fluticasone propion-salmeterol [Advair Diskus] 250-50 mcg/dose Blister With Device 1 inh INHALATION BID RF: 0 loratadine 10 mg Tablet 10 mg PO DAILY RF: 0 metolazone 2.5 mg Tablet 2.5 mg PO UD RF: 0 metoclopramide HCl 5 mg Tablet 5 mg PO BIDM RF: 0 metoprolol tartrate 25 mg Tablet 12.5 mg PO DAILY RF: 0 Cerovite Advanced Formula 18-400 mg-mcg Tablet 1 tab PO DAILY RF: 0 Referrals Referrals: Agustina Mock DO [Primary Care Provider] - Discharge Problem: Urinary tract infection Qualifiers: Urinary tract infection type: site unspecified Hematuria presence: without jone turia Qualified Code(s): N39.0 - Urinary tract infection, site not specified Fever Qualifiers: Fever type: unspecified Qualified Code(s): R50.9 - Fever, unspecified
[2020-06-23] MEDS ORDERED: cefTRIAXone SODIUM 1,000 MG/50 ML BAG IV STA (15:06)
[2020-06-23 15:10] LABS: Bilirubin Urine Negative (Negative); Ictotest Urine Negative (Negative)
[2020-06-23 15:19] LABS: Influenza A virus by PCR Neg for Influ A (Neg); Influenza B virus by PCR Neg for Influ B (Neg)
--- NOTE | 2020-06-23 15:58 | XRay Report ---
XR chest 1V portable CLINICAL HISTORY: SEPSIS COMPARISON STUDY: Chest radiograph September 16, 2019. FINDINGS: Lung volumes are diminished. There is mild left basilar opacity which favors atelectasis. C ardiomegaly is noted without evidence for pulmonary edema. There is no pneumothorax or pleural effusi on. IMPRESSION: Low lung volumes with left basilar opacity that favors atelectasis. ACT 112: Negative or not required by law. Electronically signed by: Declan Person M.D. 06/23/2020 3:56 PM
--- NOTE | 2020-06-23 16:01 | XRay Report ---
KUB HISTORY: Generalized abdominal pain COMPARISON: None. FINDINGS: Mildly dilated gas-filled loops of small bowel seen within the right side of the abdomen. T here is gas within the nondistended colon and stomach. Findings favor a mild ileus. Vascular calcific ations are noted. Cholecystectomy. No renal calculi. No ureteral calculi. No pneumoperitoneum or pne umatosis. IMPRESSION: A few mildly dilated gas-filled loops of small bowel seen within the right side of the abdomen. This may represent a mild ileus. No evidence for bowel obstruction. ACT 112: Negative or not required by law. Electronically signed by: Zoltan Correia M.D. 06/23/2020 4:00 PM
[2020-06-23 16:31] LABS: Partial Thromboplastin Ratio 0.9; Partial Thromboplastin Time 25.4 Seconds (21.0-31.0); Prothrombin Time 10.9 Seconds (9.0-12.0)
--- NOTE | 2020-06-23 17:53 | History & Physical Report ---
Date of Service June 23, 2020 Assessment & Plan (1) Urinary tract infection: Presented with anorexia and nausea with vomiting Noted to have high white count of 17,000 with urine examination suggestive of infection Did not have any fever at presentation and tachycardia did not persist. Doubt any sepsis Urine has been sent for culture and blood has been sent for culture to Started with intravenous ceftriaxone Covid-Negative (2) Acute kidney injury superimposed on chronic kidney disease: Has history of chronic kidney disease stage IV Has acute on chronic kidney disease secondary to dehydration and use of diuretics and lisinopril Will hold diuretics and lisinopril for now Start adequate amount of intravenous fluid Monitor PRP (3) Esophageal dysmotility: Under care of [facility] Will ask for speech therapy evaluation The left clears orally as of today (4) (HFpEF) heart failure with preserved ejection fraction: Has history of atrial fibrillation and heart failure with preserved EF No signs of fluid overload Will give cautious amount of intravenous fluid for acute dehydration Hold lisinopril and furosemide for now Mild elevation of troponin Acute secondary to acute on chronic kidney disease EKG shows atrial fibrillation with right axis deviation, inferior infarct age undetermined lateral T wave inversion Doubt any ACS will repeat second set of troponin (5) Type 2 diabetes mellitus: Continue current medications Her on SSI (6) Asthma, moderate: No acute symptoms (7) Chronic a-fib: Chronic atrial fibrillation Rate is controlled now As per the epic note she has not been on any Coumadin DVT prophylaxis Heparin SQ CODE STATUS Full History of Present Illness Chief Complaint: Decreased oral intake, nausea vomiting, fever with shortness of breath Primary Care Provider: Agustina Mock DO She is an 89-year-old female with significant past medical history of CAD, CHF, atrial fibrillation, CKD stage IV with anemia, diabetes with PVD apparently was sent in from [facility] with multitude of symptoms. The main complaints seems to be failure to thrive with weight loss and decreased oral intake with decreasing appetite. Also noted to have nausea with vomiting and fever with shortness of breath. She has been a poor historian and she has been telling that she has shortness of breath denies any other symptoms. She has seen by her primary care this morning at [facility] and following discussion with the POA , her son for further evaluation. She denies any chest pain and/or palpitation, any abdominal pain, denies any problem with urine and her bowel habit, noted to have fever and some sweating, has been very weak and lethargic. She did not have any neurological symptoms. She was noted to have very high white count with a UA suggestive of infection. She also has severe dehydration and from that point she was admitted to medical telemetry unit for continuation of care. Allergies Allergy/AdvReac Type Severity Reaction Status Date / Time clofibrate Allergy Severe SWELLING Verified 06/23/20 18:17 rabeprazole Allergy Intermediate SOB/COUGHING Verified 06/23/20 18:17 AND THROAT FELT TIGHT/ABD. CRAMPING fexofenadine Allergy Mild RASH Verified 06/23/20 18:17 Fibrate Anti-Lipidemics Allergy Mild SWELLING Verified 06/23/20 18:17 fluvastatin Allergy Mild HIVES Verified 06/23/20 18:17 metformin Allergy Mild URINARY Verified 06/23/20 18:17 FREQUENCY/RASH/ITCH morphine Allergy Mild ITCHY/HIVES Verified 06/23/20 18:17 moxifloxacin Allergy Mild ITCHY/NAUSE Verified 06/23/20 18:17 A Penicillins Allergy Mild HIVES Verified 06/23/20 18:17 Quinolones Allergy Mild RASH Verified 06/23/20 18:17 amoxicillin Allergy Unknown Unknown Verified 06/23/20 18:17 chlorpropamide Allergy Unknown UNKNOWN Verified 06/23/20 18:17 NSAIDS (Non-Steroidal Allergy Unknown UNKNOWN Verified 06/23/20 18:17 Anti-Inflamma ranitidine Allergy Unknown Unknown Verified 06/23/20 18:17 Sulfa (Sulfonamide Allergy Unknown UNKNOWN Verified 06/23/20 18:17 Antibiotics) blue dye AdvReac Mild MYALGIAS Verified 06/23/20 18:17 AND CRAMPS codeine AdvReac Mild FEELS Verified 06/23/20 18:17 "HIGH" ON/ITCHING dexlansoprazole AdvReac Mild MYALGIAS Verified 06/23/20 18:17 AND CRAMPS gemfibrozil AdvReac Mild ABDOMINAL Verified 06/23/20 18:17 CRAMPS AND DIZZINESS lisinopril AdvReac Mild COUGH Verified 06/23/20 18:17 lorazepam AdvReac Mild 0 Verified 06/23/20 18:17 rofecoxib AdvReac Mild INDIGESTION Verified 06/23/20 18:17 Home Medications Home Medications Medication Instructions Recorded Confirmed Type losartan 25 mg tablet 25 mg PO DAILY tab 01/22/19 06/23/20 History montelukast 10 mg tablet 10 mg PO DAILY 01/22/19 06/23/20 History Yao Dior U-100 Insulin 4 unit SUBCUT DAILY 03/05/19 06/23/20 History allopurinol 200 mg PO DAILY 03/05/19 06/23/20 History fluticasone propionate [Flonase 2 spray INTRANASAL DAILY 03/05/19 06/23/20 History Allergy Relief] loratadine 10 mg PO DAILY 03/05/19 06/23/20 History sennosides-docusate sodium 2 tab PO BID 03/05/19 06/23/20 History [Senna-S] metoprolol tartrate 25 mg PO QAM 06/23/19 06/23/20 History Aroma Therapy See Rx Instructions .ROUTE .COMPLEX 06/23/20 06/23/20 History acetaminophen 500 mg PO HS MDD 3000 MG APAP/24 06/23/20 06/23/20 History HOURS acetaminophen 650 mg PO Q4H PRN MDD 3000 MG 06/23/20 06/23/20 History APAP/24 HOURS alum-mag hydroxide-simeth [Antacid 30 ml PO ACHS 06/23/20 06/23/20 History Anti-Gas] amlodipine 5 mg PO DAILY 06/23/20 06/23/20 History aspirin 81 mg PO DAILY 06/23/20 06/23/20 History azelastine 2 spray INTRANASAL AMHS 06/23/20 06/23/20 History bumetanide 1 mg PO DAILY 06/23/20 06/23/20 History fluticasone furoate-vilanterol 1 inh INHALATION DAILY 06/23/20 06/23/20 History [Breo Ellipta] ipratropium-albuterol 3 ml INHALATION BID 06/23/20 06/23/20 History ipratropium-albuterol 3 ml INHALATION Q4H PRN 06/23/20 06/23/20 History iron,carbonyl-vitamin C [Vitron-C] 1 tab PO DAILY 06/23/20 06/23/20 History isosorbide dinitrate 30 mg PO QAM 06/23/20 06/23/20 History lanolin gvnumjp-kz-k.pet-ceres 1 applic TOPICAL BID 06/23/20 06/23/20 History [Eucerin] mirtazapine 30 mg PO HS 06/23/20 06/23/20 History omeprazole 40 mg PO QAM 06/23/20 06/23/20 History ondansetron HCl [Zofran] 4 mg PO Q6H PRN 06/23/20 06/23/20 History polyethylene glycol 3350 17 g PO DAILY 06/23/20 06/23/20 History sodium chloride [Saline Nasal] 2 spray INTRANASAL DIRECTED 06/23/20 06/23/20 History Past Med/Surg History Medical History Anemia Asthma CAD (coronary atherosclerotic disease) CKD (chronic kidney disease) stage 4, GFR 15-29 ml/min Diabetes GERD (gastroesophageal reflux disease) HTN, goal to be determined Hyperparathyroidism Obesity PVD (peripheral vascular disease) Surgical History H/O right coronary artery stent placement S/P abdominal hysterectomy S/P cholecystectomy Family History Other No pertinent family history in first degree relatives Social History Smoking Status: Unknown if ever smoked Hx Alcohol Use: No Hx Substance Use: No Preferred Language: French Communication Ability: Effective Visual Impairment: Limited Hearing Ability: Hard of Hearing 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 Beliefs That Will Affect Care: None marital status: / Current Living Situation: Personal Care Facility Current Living Situation Comment: [facility] current occupational status: retired Feels Safe at Home: Yes Assistive Devices: Glasses Review of Systems Review of Systems: All systems reviewed & are unremarkable except as noted in HPI & below Physical Exam Physical Exam: Lying in bed comfortably Constitutional: + thin; no acute distress and not ill appearing Eyes: PERRL, conjunctivae normal, anicteric sclerae ENMT: external ear and nose normal, oropharynx normal Neck: trachea midline, no thyromegaly Respiratory: normal respiratory effort; no respiratory distress Auscultation: lungs clear to auscultation bilaterally Cardiovascular: Rate/Rhythm: + abnormal rate and + abnormal rhythm Heart Sounds: + murmur (2/6 ESM over precordium) Gastrointestinal (Abdomen): Inspection/Auscultation: abdomen normal to inspection and normal bowel sounds; abdomen not distended Percussion/Palpation: abdomen soft Musculoskeletal: No acute arthritis involving any joints Neurologic: moves all extremities; no focal motor deficits Lymphatic: no cervical or axillary lymphadenopathy Results & Data Results & Data ([facility]) Vital Signs (Past 12 Hours) Vital Signs Temp Pulse Resp BP Pulse Ox 06/23/20 16:45 94 H 15 98 06/23/20 16:31 94 H 24 151/71 H 98 06/23/20 16:30 85 28 H 98 06/23/20 16:15 88 21 99 06/23/20 16:00 93 H 24 150/99 H 95 06/23/20 15:45 93 H 19 98 06/23/20 15:30 107 H 29 H 96 06/23/20 15:15 90 24 137/78 96 06/23/20 14:45 102 H 20 124/70 06/23/20 14:30 92 H 21 121/55 L 97 06/23/20 14:15 93 H 24 117/60 97 06/23/20 14:00 105 H 22 117/57 L 97 06/23/20 13:53 37.1 C 95 H 22 101/67 96 Laboratory Results Short CBC 06/23/20 Range/Units 13:12 WBC 17.71 H (4.8-10.8) K/uL Hgb 13.4 (12.0-16.0) g/dL Hct 40.4 (37-47) % Plt Count 181 (130-400) K/uL BMP 06/23/20 13:12 Sodium 143 Potassium 5.0 Chloride 107 Carbon Dioxide 23 BUN 73 H Creatinine 3.02 H Glucose 149 H Calcium 9.3 Cardiac Enzymes 06/23/20 Range/Units 13:12 Troponin I 0.574 H* (0-0.045) ng/ml Liver Function 06/23/20 Range/Units 13:12 Total Bilirubin 0.8 (0.2-1) mg/dl AST 15 (15-37) U/L ALT 10 L (12-78) U/L Alkaline Phosphatase 104 (45-117) U/L Albumin 2.5 L (3.4-5.0) gm/dl Urine 06/23/20 Range/Units 14:06 Urine Color Dark Yellow Urine Appearance Cloudy A (Clear) Urine pH 6.0 (4.5-7.5) Ur Specific Simpson 1.014 (1.000-1.030) Urine Protein 1+ H (Negative) Urine Glucose (UA) Negative (Negative) Medications Administered Current Inpatient Medications Heparin Sodium (Porcine) (Heparin Sod 5,000 Unit/0.5 Ml Vial) 5,000 units SQ Q12 BRANDON Stop: 07/23/20 20:59 Ceftriaxone Sodium 1,000 mg/ (Dextrose) 50 mls @ 100 mls/hr IV Q24H BRANDON; Protocol Stop: 06/28/20 17:44 Sodium Chloride (Nss 1000ml) 1,000 mls @ 125 mls/hr IV .Q8H BRANDON Stop: 06/24/20 17:44 Code Status & VTE Plan VTE Prophylaxis Plan VTE Prophylaxis will be ordered: Yes (1) Urinary tract infection Hematuria presence: without hematuria Urinary tract infection type: site unspecified Qualified Code(s): N39.0 - Urinary tract infection, site not specified
[2020-06-23] MEDS ORDERED: HYDROCORTISONE 2.5% CR 30 GM TUBE EXT PRN (19:14)
[2020-06-23] MEDS ORDERED: LORazepam 0.5 MG TAB PO PRN (19:14)
[2020-06-23] MEDS ORDERED: PNEUMOCOCCAL ADMINISTRATION CHARGE ONE (19:31)
[2020-06-23] MEDS ORDERED: PNEUMOCOCCAL POLYSACCHARIDES 25 MCG/0.5 ML VIAL/SYR IM ONE (19:31)
[2020-06-23] MEDS: SODIUM CHLORIDE 0.9% 1000ML 1,000 ML IV SCH (19:39)
[2020-06-23] MEDS ORDERED: GLUCOSE 10 TABS/TUBE PO PRN (19:45)
[2020-06-23] MEDS ORDERED: GLUCOSE 40% GEL 15 GM TUBE PO PRN (19:45)
[2020-06-23] MEDS ORDERED: CARBOHYDRATES FOR HYPOGLYCEMIA PO PRN (19:45)
[2020-06-23] MEDS ORDERED: DEXTROSE 50% 50 ML SYRINGE IV PRN (19:45)
[2020-06-23] MEDS ORDERED: GLUCAGON FOR INJ 1 MG VIAL IM PRN (19:45)
[2020-06-23] MEDS: BUTT PASTE (ZINC OXIDE 16%) 171 APPLN/57 GM JAR EXT SCH (20:52)
[2020-06-23] MEDS: NYSTATIN CR 15 GM TUBE EXT SCH (20:53)
[2020-06-23] MEDS: DOCUSATE SODIUM/SENNA 50/8.6MG TAB PO SCH (20:53)
[2020-06-23] MEDS: FLUTICASONE/VILANTEROL 100/25MCG 14 PUFFS/INHALER INH SCH (20:53)
[2020-06-23] MEDS: MONTELUKAST SODIUM 10 MG TABLET PO SCH (20:54)
[2020-06-23] MEDS: HEPARIN SOD 5,000 UNIT/0.5 ML VIAL SQ SCH (20:54)
[2020-06-23] MEDS: METOPROLOL TARTRATE 25 MG TAB PO SCH (20:54)
[2020-06-23] MEDS ORDERED: XOPENEX/ATROVENT 1.25mg/0.5MG NEB COMBO NEB STA (21:09)
[2020-06-23] MEDS ORDERED: IPRATROPIUM BROMIDE NEB SOLN 0.02% 2.5 ML VIAL INH ONE (21:16)
[2020-06-23] MEDS ORDERED: LEVALBUTEROL 1.25MG/0.5ML NEB INH ONE (21:17)
[2020-06-23] MEDS ORDERED: PROMETHAZINE HCL 6.25 MG in SODIUM CHLORIDE 0.9% 50 ML IV ONE (21:20)
[2020-06-23] MEDS ORDERED: ERTAPENEM SODIUM 10 ML IV STA (21:31)
--- NOTE | 2020-06-23 21:32 | Communication Note ---
Date of Service: June 23, 2020 Made aware by RN of patient complaint of shortness of breath and junky cough symptoms productive of yellow-green sputum. Concern for aspiration as per RN. Chest x-ray as per my interpretation: Bibasilar infiltrates, atelectasis CT abdomen pelvis initial read: Groundglass infiltrates lung bases concerning for pneumonia. AP Aspiration pneumonia Ertapenem to cover pulmonary and UTI pathogens DC ceftriaxone for UTI Aspiration precautions, swallow eval Will relay to AM provider.
[2020-06-23] MEDS ORDERED: methylPREDNISolone 20 MG in SYRINGE 0 ML IV STA (21:33)
[2020-06-23] MEDS: ERTAPENEM SODIUM 500 MG in SODIUM CHLORIDE 0.9% 50 ML IV SCH (21:57)
[2020-06-24] MEDS: SODIUM CHLORIDE 0.9% 1000ML 1,000 ML IV SCH ×2 (04:23→12:15)
--- NOTE | 2020-06-24 06:09 | Electrocardiogram Report ---
Test Reason : Blood Pressure : / mmHG Vent. Rate : 096 BPM Atrial Rate : 105 BPM P-R Int : 000 ms QRS Dur : 078 ms QT Int : 352 ms P-R-T Axes : 000 269 229 degrees QTc Int : 444 ms Atrial fibrillation Right superior axis deviation Low voltage QRS Inferior infarct , age undetermined Anterior infarct Abnormal ECG When compared with ECG of 16-SEP-2019 00:50, T wave inversion more evident in Inferior leads T wave inversion now evident in Anterior leads Confirmed by Raza Ybarra ([id number]) on 06/24/2020 6:08:56 AM Referred By: REFERRED SELF Confirmed By:Raza Ybarra
--- NOTE | 2020-06-24 07:07 | XRay Report ---
XR chest 1V portable CLINICAL HISTORY: Shortness of breath COMPARISON STUDY: 06/23/2020 FINDINGS: The heart is mildly enlarged. There is mild basilar interstitial thickening. There is sligh tly more prominent right basilar markings as when compared the prior study. While likely atelectatic, an infectious/inflammatory processes could appear similar. There is no failure. There are no signifi cant pleural effusions.[ IMPRESSION: 1. Nonspecific right basilar opacities, atelectatic versus infectious/inflammatory ACT 112: Negative or not required by law. Electronically signed by: Yury Pierre M.D. 06/24/2020 7:06 AM
--- NOTE | 2020-06-24 07:38 | CT Scan Report ---
CT SCAN OF THE ABDOMEN AND PELVIS WITHOUT CONTRAST CLINICAL HISTORY: This generalized abdominal pain COMPARISON STUDY: 08/31/2015 TECHNIQUE: CT scan of the abdomen and pelvis was performed from the lung bases to the proximal femurs . Images are reviewed in the axial, sagittal, and coronal planes. IV contrast was not administered fo r this examination. A dose lowering technique was utilized adhering to the principles of ALARA. CT DOSE: 816.42 mGycm FINDINGS: Lower chest: There are bilateral pulmonary airspace opacities suspicious for a pneumonia. Clinical co rrelation advocated. The heart is enlarged with coronary calcifications. Liver: The unenhanced liver is normal in size, contour, and attenuation. There is no intrahepatic sg iary ductal dilatation. Gallbladder: Surgically absent Spleen: Normal in size and attenuation. Pancreas: Marked fatty atrophy Adrenal glands: Unremarkable. Kidneys: There are vascular calcifications. No renal, ureteral, or bladder calculi are visualized Bowel: There are no transition zones to indicate bowel obstruction. There is no evidence of acute div erticulitis. There are no findings to indicate acute appendicitis. Peritoneum: There is no intraperitoneal free air or abdominal ascites. Vasculature: There are extensive vascular calcifications. There is no evidence of abdominal aortic an eurysm. Adenopathy: None. Pelvic viscera: The uterus is surgically absent. There is trace gas in the bladder likely iatrogenic Skeletal structures: No destructive osseous lesions are seen. IMPRESSION: 1. No evidence of bowel obstruction. No evidence of free air 2. Advanced atherosclerotic calcification 3. Bilateral lower lobe pulmonary airspace opacity suspicious for pneumonia. Given the appearance, a viral pneumonia such as Covid-19 must be considered within the differential ACT 112: Negative or not required by law. Electronically signed by: Yury Pierre M.D. 06/24/2020 7:36 AM
[2020-06-24] MEDS: CEROVITE ADV FORMULA TAB PO SCH (07:43)
[2020-06-24] MEDS: amLODIPine BESYLATE 5 MG TAB PO SCH (07:43)
[2020-06-24] MEDS: CALCIUM CARBONATE 500 MG CHEWABLE TAB PO SCH ×3 (07:43→16:19)
[2020-06-24] MEDS: METOCLOPRAMIDE HCL 5 MG TABLET PO SCH ×2 (07:43→16:19)
[2020-06-24] MEDS: METOPROLOL TARTRATE 25 MG TAB PO SCH (07:44)
[2020-06-24] MEDS: PANTOprazole 40 MG TAB PO SCH (07:44)
[2020-06-24] MEDS: LORATADINE 10 MG TAB PO SCH (07:44)
[2020-06-24] MEDS: DOCUSATE SODIUM/SENNA 50/8.6MG TAB PO SCH ×2 (07:44→20:51)
[2020-06-24] MEDS: CLOBETASOL PROPIONATE 0.05% OINT 15 GM TUBE EXT SCH (07:45)
[2020-06-24] MEDS: BUTT PASTE (ZINC OXIDE 16%) 171 APPLN/57 GM JAR EXT SCH ×3 (07:45→21:37)
[2020-06-24] MEDS: FLUTICASONE PROPIONATE NA SPR 16 GM BTL SCH (07:45)
[2020-06-24] MEDS: NYSTATIN CR 15 GM TUBE EXT SCH ×2 (07:45→21:37)
[2020-06-24] MEDS: HEPARIN SOD 5,000 UNIT/0.5 ML VIAL SQ SCH ×2 (07:46→21:36)
[2020-06-24] MEDS: INSULIN GLARGINE SOLOSTAR 100 UNITS/ML 3 ML PEN SQ SCH (07:47)
[2020-06-24 08:15] LABS: Basophils # (auto) 0.01 K/uL (0-0.2); Basophils % (auto) 0.1 %; Hematocrit (blood only) 40.4 % (37-47); Hemoglobin 13.2 g/dL (12.0-16.0); Immature Granulocytes # (auto) 0.04 K/uL (0.00-0.02); Immature Granulocytes % (auto) 0.2 %; Lymphocytes # (auto) 0.74 K/uL (1.2-3.4); Lymphocytes % (auto) 3.9 %; Mean Corpuscular Hemoglobin 32.1 pg (25-34); Mean Corpuscular Volume 98.3 fL (80-100); Mean Platelet Volume 12.5 fL (7.4-10.4); Monocytes # (auto) 0.43 K/uL (0.11-0.59); Monocytes % (auto) 2.3 %; Neutrophils # (auto) 17.76 K/uL (1.4-6.5); Neutrophils % (auto) 93.5 %; Platelet Count 150 K/uL (130-400); RDW Coefficient of Variation 16.8 % (11.5-14.5); RDW Standard Deviation 60.5 fL (36.4-46.3); Red Blood Count 4.11 M/uL (4.2-5.4); White Blood Count 18.98 K/uL (4.8-10.8)
[2020-06-24 08:18] LABS: Mean Corpuscular Hgb Conc 32.7 g/dL (32-36)
[2020-06-24 08:26] LABS: BUN Creatinine Ratio 26.9 (10-20); Calcium 9.1 mg/dl (8.5-10.1); Creatinine Clr Calc Pharmacy 13.3 ml/min; Est GFR (African American) 16.2; Phosphorus 4.1 mg/dl (2.5-4.9)
[2020-06-24 08:45] LABS: Potassium 5.3 mmol/L (3.5-5.1)
[2020-06-24 08:46] LABS: Magnesium 2.3 mg/dl (1.8-2.4)
[2020-06-24] MEDS ORDERED: MULTIVITAMIN TAB PO SCH (09:00)
[2020-06-24] MEDS ORDERED: CONSULT PHARMACY PRN (09:00)
--- NOTE | 2020-06-24 13:26 | Hospitalist Progress Note ---
Date of Service June 24, 2020 Assessment & Plan (1) Urinary tract infection: Presented with anorexia and nausea with vomiting Noted to have high white count of 17,000 with urine examination suggestive of infection Did not have any fever at presentation and tachycardia did not persist. Doubt any sepsis Urine has been sent for culture and blood has been sent for culture to Started with intravenous ceftriaxone Covid-Negative Ceftriaxone has been discontinued Possible aspiration pneumonia Has history of esophageal dysmotility and as below Antibiotic has been changed to intravenous ertapenem Sacral decubiti ulcer Dry and does not look like acutely infected Continue with wound care (2) Acute kidney injury superimposed on chronic kidney disease: Has history of chronic kidney disease stage IV Has acute on chronic kidney disease secondary to dehydration and use of diuretics and lisinopril Will hold diuretics and lisinopril for now Start adequate amount of intravenous fluid Creatinine has been improving We will advise increase fluid intake orally (3) Esophageal dysmotility: Under care of [facility] Will ask for speech therapy evaluation Awaiting speech therapy evaluation (4) (HFpEF) heart failure with preserved ejection fraction: Has history of atrial fibrillation and heart failure with preserved EF No signs of fluid overload Will give cautious amount of intravenous fluid for acute dehydration Hold lisinopril and furosemide for now Events of fluid overload Mild elevation of troponin Acute secondary to acute on chronic kidney disease EKG shows atrial fibrillation with right axis deviation, inferior infarct age undetermined lateral T wave inversion Doubt any ACS will repeat second set of troponin Second set of troponin improved Troponin elevation is secondary to acute on chronic kidney disease No ACS of any kind (5) Type 2 diabetes mellitus: Continue current medications Her on SSI (6) Asthma, moderate: No acute symptoms (7) Chronic a-fib: Chronic atrial fibrillation Rate is controlled now As per the epic note she has not been on any Coumadin DVT prophylaxis Heparin SQ CODE STATUS Full Admission and Anticipated Discharge Date Admission Date: June 23, 2020 Subjective 06/24/20 Patient was seen and examined in medical telemetry unit She has had episodes of shortness of breath with coughing last night and the x- ray did show right lower lobe infiltration likely secondary to aspiration Has been doing much better this morning Denies any significant symptoms Review of Systems Review of Systems: All systems reviewed and are unremarkable except as noted below Respiratory: + cough; no dyspnea Physical Exam Physical Exam: Lying in bed comfortably Constitutional: + thin; no acute distress and not ill appearing Eyes: PERRL, conjunctivae normal, anicteric sclerae ENMT: external ear and nose normal, oropharynx normal Neck: trachea midline, no thyromegaly Respiratory: normal respiratory effort; no respiratory distress Auscultation: + crackles (Right basilar crackles) Cardiovascular: Rate/Rhythm: + abnormal rate and + abnormal rhythm Heart Sounds: + murmur (2/6 ESM over precordium) Gastrointestinal (Abdomen): Inspection/Auscultation: abdomen normal to inspection and normal bowel sounds; abdomen not distended Percussion/Palpatio n: abdomen soft Neurologic: moves all extremities; no focal motor deficits Psychiatric: A+Ox3, euthymic affect Lymphatic: no cervical or axillary lymphadenopathy Results & Data Results & Data ([facility]) Vital Signs (Past 12 Hours) Vital Signs Temp Pulse Pulse Resp BP Pulse Ox 06/24/20 12:05 36.5 C 70 18 118/73 94 06/24/20 07:26 68 06/24/20 07:13 36.3 C L 77 18 113/60 95 06/24/20 04:00 36.4 C L 77 18 107/70 95 Laboratory Results Short CBC 06/23/20 06/24/20 06/24/20 Range/Units 13:12 07:27 08:03 WBC 17.71 H Cancelled 18.98 H (4.8-10.8) K/uL Hgb 13.4 Cancelled 13.2 (12.0-16.0) g/dL Hct 40.4 Cancelled 40.4 (37-47) % Plt Count 181 Cancelled 150 (130-400) K/uL BMP 06/23/20 06/24/20 06/24/20 13:12 07:27 08:07 Sodium 143 146 H Potassium 5.0 5.3 H Chloride 107 112 H Carbon Dioxide 23 22 BUN 73 H 77 H Creatinine 3.02 H 2.87 H Glucose 149 H 190 H Calcium 9.3 9.1 Cardiac Enzymes 06/23/20 06/24/20 Range/Units 13:12 07:27 Troponin I 0.574 H* 0.373 H* (0-0.045) ng/ml Liver Function 06/23/20 Range/Units 13:12 Total Bilirubin 0.8 (0.2-1) mg/dl AST 15 (15-37) U/L ALT 10 L (12-78) U/L Alkaline Phosphatase 104 (45-117) U/L Albumin 2.5 L (3.4-5.0) gm/dl Urine 06/23/20 Range/Units 14:06 Urine Color Dark Yellow Urine Appearance Cloudy A (Clear) Urine pH 6.0 (4.5-7.5) Ur Specific Ridge 1.014 (1.000-1.030) Urine Protein 1+ H (Negative) Urine Glucose (UA) Negative (Negative) Medications Administered Current Inpatient Medications Albuterol (Albuterol Hfa 8 Gm Inhaler) 2 puffs INH Q4H PRN PRN Reason: wheezing Stop: 07/23/20 19:13 Amlodipine Besylate (Amlodipine Besylate 5 Mg Tab) 10 mg PO DAILY BR[facility]ON Stop: 07/24/20 08:59 Last Admin: 06/24/20 07:43 Dose: 10 mg Documented by: Calcium Carbonate (Calcium Carbonate 500 Mg Chewable Tab) 500 mg PO TIDM BRANDON Stop: 07/24/20 07:59 Last Admin: 06/24/20 12:15 Dose: 500 mg Documented by: Clobetasol Propionate (Clobetasol Propionate 0.05% Oint 15 Gm Tube) 1 appln EXT DAILY BRANDON Stop: 07/24/20 08:59 Last Admin: 06/24/20 07:45 Dose: 1 appln Documented by: Dextrose (Dextrose 50% 50 Ml Syringe) 25 - 50 ml IV UD PRN; Protocol PRN Reason: Hypoglycemia Protocol Stop: 07/23/20 19:44 Fluticasone Propionate (Fluticasone Propionate Na Spr 16 Gm Btl) 2 sprays NA DAILY BRANDON Stop: 07/24/20 08:59 Last Admin: 06/24/20 07:45 Dose: 2 sprays Documented by: Fluticasone/Vilanterol (Fluticasone/Vilanterol 100/25mcg 14 Puffs/Inhaler) 1 puffs INH HS BRANDON Stop: 07/23/20 20:59 Last Admin: 06/23/20 20:53 Dose: 1 puffs Documented by: Glucagon (Glucagon For Inj 1 Mg Vial) 1 mg IM UD PRN; Protocol PRN Reason: Hypoglycemia Protocol Stop: 07/23/20 19:44 Glucose (Glucose 40% Gel 15 Gm Tube) 15 - 30 gm PO UD PRN; Protocol PRN Reason: Hypoglycemia Protocol Stop: 07/23/20 19:44 Glucose (Glucose 10 Tabs/Tube) 4 - 8 tabs PO UD PRN; Protocol PRN Reason: Hypoglycemia Protocol Stop: 07/23/20 19:44 Heparin Sodium (Porcine) (Heparin Sod 5,000 Unit/0.5 Ml Vial) 5,000 units SQ Q12 BRANDON Stop: 07/23/20 20:59 Last Admin: 06/24/20 07:46 Dose: 5,000 units Documented by: Hydrocortisone (Hydrocortisone 2.5% Cr 30 Gm Tube) 1 appln EXT BID PRN PRN Reason: Rash Stop: 07/23/20 19:13 Sodium Chloride (Nss 1000ml) 1,000 mls @ 125 mls/hr IV .Q8H BRANDON Stop: 06/24/20 18:14 Last Admin: 06/24/20 12:15 Dose: 125 mls/hr Documented by: Ertapenem 500 mg/ Sodium (Chloride) 55 mls @ 110 mls/hr IV Q24H BR[facility]ON Stop: 06/30/20 21:59 Last Infusion: 06/23/20 22:29 Dose: Infused Documented by: Insulin Glargine (Insulin Glargine Solostar 100 Units/Ml 3 Ml Pen) 4 units SQ DAILY BRANDON Stop: 07/24/20 08:59 Last Admin: 06/24/20 07:47 Dose: 4 units Documented by: Loratadine (Loratadine 10 Mg Tab) 10 mg PO DAILY BR[facility]ON Stop: 07/24/20 08:59 Last Admin: 06/24/20 07:44 Dose: 10 mg Documented by: Lorazepam (Lorazepam 0.5 Mg Tab) 0.25 mg PO TID PRN PRN Reason: Anxiety Stop: 07/23/20 19:13 Metoclopramide HCl (Metoclopramide Hcl 5 Mg Tablet) 5 mg PO BIDM BRANDON Stop: 07/24/20 07:59 Last Admin: 06/24/20 07:43 Dose: 5 mg Documented by: Metoprolol Tartrate (Metoprolol Tartrate 25 Mg Tab) 12.5 mg PO DAILY BRANDON Stop: 07/23/20 19:13 Last Admin: 06/24/20 07:44 Dose: 12.5 mg Documented by: Miscellaneous (Azelastine Order Awaiting Action) 1 ea N/A QS [facility] Stop: 07/24/20 00:00 Last Admin: 06/24/20 07:42 Dose: Not Given Documented by: Miscellaneous (Carbohydrates For Hypoglycemia ) 15 - 30 gm PO UD PRN PRN Reason: Hypoglycemia Treatment Stop: 07/23/20 19:44 Miscellaneous Information (Consult Pharmacy) 1 ea N/A UD PRN PRN Reason: Consult Stop: 07/24/20 08:59 Montelukast Sodium (Montelukast Sodium 10 Mg Tablet) 10 mg PO QPM [facility] Stop: 07/23/20 20:59 Last Admin: 06/23/20 20:54 Dose: 10 mg Documented by: Multivitamins/Minerals (Cerovite Adv Formula Tab) 1 tab PO DAILY [facility] Stop: 07/24/20 08:59 Last Admin: 06/24/20 07:43 Dose: 1 tab Documented by: Nystatin (Nystatin Cr 15 Gm Tube) 1 appln EXT BID [facility] Stop: 07/23/20 20:59 Last Admin: 06/24/20 07:45 Dose: 1 appln Documented by: Pantoprazole Sodium (Pantoprazole 40 Mg Tab) 40 mg PO DAILY [facility] Stop: 07/24/20 08:59 Last Admin: 06/24/20 07:44 Dose: 40 mg Documented by: Petrolatum (Butt Paste (Zinc Oxide 16%) 171 Appln/57 Gm Jar) 1 appln EXT TID [facility]; Protocol Stop: 07/23/20 20:59 Last Admin: 06/24/20 13:06 Dose: 1 appln Documented by: Senna/Docusate Sodium (Docusate Sodium/Senna 50/8.6mg Tab) 1 tab PO BID [facility] Stop: 07/23/20 20:59 Last Admin: 06/24/20 07:44 Dose: 1 tab Documented by: (1) Urinary tract infection Hematuria presence: without hematuria Urinary tract infection type: site unspecified Qualified Code(s): N39.0 - Urinary tract infection, site not specified
[2020-06-24] MEDS ORDERED: cefTRIAXone SODIUM 1,000 MG in DEXTROSE 5% 50 ML IV SCH (16:00)
[2020-06-24] MEDS: FLUTICASONE/VILANTEROL 100/25MCG 14 PUFFS/INHALER INH SCH (20:51)
[2020-06-24] MEDS: MONTELUKAST SODIUM 10 MG TABLET PO SCH (20:51)
[2020-06-24] MEDS: ERTAPENEM SODIUM 500 MG in SODIUM CHLORIDE 0.9% 50 ML IV SCH (21:31)
[2020-06-25 06:27] LABS: Mean Corpuscular Hgb Conc 32.4 g/dL (32-36)
[2020-06-25 06:39] LABS: Hematocrit (blood only) 33.9 % (37-47); Mean Corpuscular Hemoglobin 31.5 pg (25-34); Mean Corpuscular Volume 97.1 fL (80-100); RDW Coefficient of Variation 16.9 % (11.5-14.5); RDW Standard Deviation 59.9 fL (36.4-46.3); Red Blood Count 3.49 M/uL (4.2-5.4); White Blood Count 10.39 K/uL (4.8-10.8)
[2020-06-25 06:52] LABS: BUN Creatinine Ratio 29.7 (10-20); Basophils # (auto) 0.01 K/uL (0-0.2); Basophils % (auto) 0.1 %; Calcium 8.6 mg/dl (8.5-10.1); Creatinine Clr Calc Pharmacy 13.8 ml/min; Est GFR (Non-African American) 14.6; Immature Granulocytes # (auto) 0.03 K/uL (0.00-0.02); Immature Granulocytes % (auto) 0.3 %; Lymphocytes # (auto) 0.96 K/uL (1.2-3.4); Lymphocytes % (auto) 9.2 %; Mean Platelet Volume 12.7 fL (7.4-10.4); Monocytes # (auto) 0.44 K/uL (0.11-0.59); Monocytes % (auto) 4.2 %; Neutrophils # (auto) 8.95 K/uL (1.4-6.5); Neutrophils % (auto) 86.2 %; Platelet Count 133 K/uL (130-400); Platelet Estimate Decreased (Normal); Potassium 4.8 mmol/L (3.5-5.1); RBC Morphology Unremarkable
[2020-06-25] MEDS ORDERED: ACETAMINOPHEN 325 MG TAB PO PRN (07:43)
[2020-06-25] MEDS: ALBUTEROL HFA 8 GM INHALER INH PRN ×2 (07:44→21:41)
[2020-06-25] MEDS: HEPARIN SOD 5,000 UNIT/0.5 ML VIAL SQ SCH ×2 (07:54→21:14)
[2020-06-25] MEDS: amLODIPine BESYLATE 5 MG TAB PO SCH (07:54)
[2020-06-25] MEDS: DOCUSATE SODIUM/SENNA 50/8.6MG TAB PO SCH ×2 (07:54→21:16)
[2020-06-25] MEDS: LORATADINE 10 MG TAB PO SCH (07:55)
[2020-06-25] MEDS: PANTOprazole 40 MG TAB PO SCH (07:55)
[2020-06-25] MEDS: BUTT PASTE (ZINC OXIDE 16%) 171 APPLN/57 GM JAR EXT SCH ×3 (07:55→21:15)
[2020-06-25] MEDS: CALCIUM CARBONATE 500 MG CHEWABLE TAB PO SCH ×3 (07:55→17:26)
[2020-06-25] MEDS: METOPROLOL TARTRATE 25 MG TAB PO SCH (07:55)
[2020-06-25] MEDS: METOCLOPRAMIDE HCL 5 MG TABLET PO SCH ×2 (07:55→17:26)
[2020-06-25] MEDS: INSULIN GLARGINE SOLOSTAR 100 UNITS/ML 3 ML PEN SQ SCH (07:56)
[2020-06-25] MEDS: CEROVITE ADV FORMULA TAB PO SCH (07:56)
[2020-06-25] MEDS: NYSTATIN CR 15 GM TUBE EXT SCH ×2 (07:56→21:15)
[2020-06-25] MEDS: CLOBETASOL PROPIONATE 0.05% OINT 15 GM TUBE EXT SCH (07:57)
[2020-06-25] MEDS: FLUTICASONE PROPIONATE NA SPR 16 GM BTL SCH (07:57)
[2020-06-25] MEDS ORDERED: BUMETANIDE 1 MG in SYRINGE 0 ML IV STA (09:44)
--- NOTE | 2020-06-25 15:48 | Hospitalist Progress Note ---
Date of Service June 25, 2020 Assessment & Plan (1) Urinary tract infection: Presented with anorexia and nausea with vomiting Noted to have high white count of 17,000 with urine examination suggestive of infection Did not have any fever at presentation and tachycardia did not persist. Doubt any sepsis Urine has been sent for culture and blood has been sent for culture to Started with intravenous ceftriaxone Covid-Negative Ceftriaxone has been discontinued Possible aspiration pneumonia Has history of esophageal dysmotility and as below Antibiotic has been changed to intravenous ertapenem Clinically a lot better and no evidence of lobar consolidation Will de-escalate antibiotic to intravenous ceftriaxone for now Sacral decubiti ulcer stage III Dry and does not look like acutely infected Continue with wound care (2) Acute kidney injury superimposed on chronic kidney disease: Has history of chronic kidney disease stage IV Has acute on chronic kidney disease secondary to dehydration and use of diuretics and lisinopril Will hold diuretics and lisinopril for now Start adequate amount of intravenous fluid Creatinine has been improving We will advise increase fluid intake orally Seems to be having fluid overload-we will restrict oral intake to 1200 mL a day (3) Esophageal dysmotility: Under care of [facility] Will ask for speech therapy evaluation Failed bedside swallowing evaluation and did not go for barium swallow due to risk of aspiration CT scan of the abdomen pelvis is unremarkable [facility] consulted for possible EGD and dilatation with history of esophageal dilatation in the past (4) (HFpEF) heart failure with preserved ejection fraction: Has history of atrial fibrillation and heart failure with preserved EF No signs of fluid overload Will give cautious amount of intravenous fluid for acute dehydration Hold lisinopril and furosemide for now Events of fluid overload Will get Bumex 1 mg IV and reduce oral intake to 1200 mL a day Mild elevation of troponin Acute secondary to acute on chronic kidney disease EKG shows atrial fibrillation with right axis deviation, inferior infarct age undetermined lateral T wave inversion Doubt any ACS will repeat second set of troponin Second set of troponin improved Troponin elevation is secondary to acute on chronic kidney disease No ACS of any kind (5) Type 2 diabetes mellitus: Continue current medications Her on SSI (6) Asthma, moderate: No acute symptoms (7) Chronic a-fib: Chronic atrial fibrillation Rate is controlled now As per the epic note she has not been on any Coumadin DVT prophylaxis Heparin SQ CODE STATUS Full Discussed with the son in detailed Admission and Anticipated Discharge Date Admission Date: June 23, 2020 Subjective 06/24/20 Patient was seen and examined in medical telemetry unit She has had episodes of shortness of breath with coughing last night and the x- ray did show right lower lobe infiltration likely secondary to aspiration Has been doing much better this morning Denies any significant symptoms 06/25/2020 The patient was seen and examined in medical telemetry unit She complains today of some shortness of breath but does not look to be short of breath She failed bedside swallowing test and the did not go for barium swallow due to high risk of aspiration Review of Systems Review of Systems: All systems reviewed and are unremarkable except as noted below Respiratory: + cough; no dyspnea Physical Exam Physical Exam: Lying in bed comfortably Constitutional: + thin; no acute distress and not ill appearing Eyes: PERRL, conjunctivae normal, anicteric sclerae ENMT: external ear and nose normal, oropharynx normal Neck: trachea midline, no thyromegaly Respiratory: normal respiratory effort; no respiratory distress Auscultation: + diminished lung sounds and + crackles (Right basilar crackles) Cardiovascular: Rate/Rhythm: + abnormal rate and + abnormal rhythm Heart Sounds: + murmur (2/6 ESM over precordium) Gastrointestinal (Abdomen): Inspection/Auscultation: abdomen normal to inspection and normal bowel sounds; abdomen not distended Per cussion/Palpation: abdomen soft Musculoskeletal: No acute arthritis involving any joints Neurologic: moves all extremities; no focal motor deficits Psychiatric: A+Ox3, euthymic affect Lymphatic: no cervical or axillary lymphadenopathy Results & Data Results & Data ([facility]) Vital Signs (Past 12 Hours) Vital Signs Temp Pulse Resp BP BP Pulse Ox 06/25/20 15:17 36.4 C L 81 21 118/74 99 06/25/20 12:18 36.9 C 77 20 124/76 97 06/25/20 08:07 36.6 C 69 18 130/81 97 06/25/20 07:49 102 H 24 90 Laboratory Results Short CBC 06/25/20 Range/Units 06:05 WBC 10.39 (4.8-10.8) K/uL Hgb 11.0 L (12.0-16.0) g/dL Hct 33.9 L (37-47) % Plt Count 133 (130-400) K/uL BMP 06/25/20 06:05 Sodium 149 H Potassium 4.8 Chloride 116 H Carbon Dioxide 28 BUN 82 H Creatinine 2.76 H Glucose 96 Calcium 8.6 Medications Administered Current Inpatient Medications Acetaminophen (Acetaminophen 325 Mg Tab) 650 mg PO Q4H PRN PRN Reason: Pain or Fever Stop: 07/25/20 07:42 Last Admin: 06/25/20 07:53 Dose: 650 mg Documented by: Albuterol (Albuterol Hfa 8 Gm Inhaler) 2 puffs INH Q4H PRN PRN Reason: wheezing Stop: 07/23/20 19:13 Last Admin: 06/25/20 07:44 Dose: 2 puffs Documented by: Amlodipine Besylate (Amlodipine Besylate 5 Mg Tab) 10 mg PO DAILY BRANDON Stop: 07/24/20 08:59 Last Admin: 06/25/20 07:54 Dose: 10 mg Documented by: Calcium Carbonate (Calcium Carbonate 500 Mg Chewable Tab) 500 mg PO TIDM BRANDON Stop: 07/24/20 07:59 Last Admin: 06/25/20 12:16 Dose: 500 mg Documented by: Clobetasol Propionate (Clobetasol Propionate 0.05% Oint 15 Gm Tube) 1 appln EXT DAILY BRANDON Stop: 07/24/20 08:59 Last Admin: 06/25/20 07:57 Dose: 1 appln Documented by: Dextrose (Dextrose 50% 50 Ml Syringe) 25 - 50 ml IV UD PRN; Protocol PRN Reason: Hypoglycemia Protocol Stop: 07/23/20 19:44 Fluticasone Propionate (Fluticasone Propionate Na Spr 16 Gm Btl) 2 sprays NA DAILY BRANDON Stop: 07/24/20 08:59 Last Admin: 06/25/20 07:57 Dose: 2 sprays Documented by: Fluticasone/Vilanterol (Fluticasone/Vilanterol 100/25mcg 14 Puffs/Inhaler) 1 puffs INH HS BRANDON Stop: 07/23/20 20:59 Last Admin: 06/24/20 20:51 Dose: Not Given Documented by: Glucagon (Glucagon For Inj 1 Mg Vial) 1 mg IM UD PRN; Protocol PRN Reason: Hypoglycemia Protocol Stop: 07/23/20 19:44 Glucose (Glucose 40% Gel 15 Gm Tube) 15 - 30 gm PO UD PRN; Protocol PRN Reason: Hypoglycemia Protocol Stop: 07/23/20 19:44 Glucose (Glucose 10 Tabs/Tube) 4 - 8 tabs PO UD PRN; Protocol PRN Reason: Hypoglycemia Protocol Stop: 07/23/20 19:44 Heparin Sodium (Porcine) (Heparin Sod 5,000 Unit/0.5 Ml Vial) 5,000 units SQ Q12 BRANDON Stop: 07/23/20 20:59 Last Admin: 06/25/20 07:54 Dose: 5,000 units Documented by: Hydrocortisone (Hydrocortisone 2.5% Cr 30 Gm Tube) 1 appln EXT BID PRN PRN Reason: Rash Stop: 07/23/20 19:13 Ceftriaxone Sodium 1,000 mg/ (Dextrose) 50 mls @ 100 mls/hr IV Q24H BRANDON Stop: 06/29/20 18:29 Insulin Glargine (Insulin Glargine Solostar 100 Units/Ml 3 Ml Pen) 4 units SQ DAILY BRANDON Stop: 07/24/20 08:59 Last Admin: 06/25/20 07:56 Dose: 4 units Documented by: Loratadine (Loratadine 10 Mg Tab) 10 mg PO DAILY BRANDON Stop: 07/24/20 08:59 Last Admin: 06/25/20 07:55 Dose: 10 mg Documented by: Lorazepam (Lorazepam 0.5 Mg Tab) 0.25 mg PO TID PRN PRN Reason: Anxiety Stop: 07/23/20 19:13 Metoclopramide HCl (Metoclopramide Hcl 5 Mg Tablet) 5 mg PO BIDM BRANDON Stop: 07/24/20 07:59 Last Admin: 06/25/20 07:55 Dose: 5 mg Documented by: Metoprolol Tartrate (Metoprolol Tartrate 25 Mg Tab) 12.5 mg PO DAILY BRANDON Stop: 07/23/20 19:13 Last Admin: 06/25/20 07:55 Dose: 12.5 mg Documented by: Miconazole Nitrate (Miconazole Nitrate Powder 43 Gm) 1 appln EXT PRN PRN PRN Reason: Affected Skin Folds Stop: 07/25/20 11:02 Miscellaneous (Azelastine Order Awaiting Action) 1 ea N/A QS BRANDON Stop: 07/24/20 00:00 Last Admin: 06/25/20 08:56 Dose: Not Given Documented by: Miscellaneous (Carbohydrates For Hypoglycemia ) 15 - 30 gm PO UD PRN PRN Reason: Hypoglycemia Treatment Stop: 07/23/20 19:44 Miscellaneous Information (Consult Pharmacy) 1 ea N/A UD PRN PRN Reason: Consult Stop: 07/24/20 08:59 Montelukast Sodium (Montelukast Sodium 10 Mg Tablet) 10 mg PO QPM [facility] Stop: 07/23/20 20:59 Last Admin: 06/24/20 20:51 Dose: Not Given Documented by: Multivitamins/Minerals (Cerovite Adv Formula Tab) 1 tab PO DAILY BRANDON Stop: 07/24/20 08:59 Last Admin: 06/25/20 07:56 Dose: 1 tab Documented by: Nystatin (Nystatin Cr 15 Gm Tube) 1 appln EXT BID [facility] Stop: 07/23/20 20:59 Last Admin: 06/25/20 07:56 Dose: 1 appln Documented by: Pantoprazole Sodium (Pantoprazole 40 Mg Tab) 40 mg PO DAILY [facility] Stop: 07/24/20 08:59 Last Admin: 06/25/20 07:55 Dose: 40 mg Documented by: Petrolatum (Butt Paste (Zinc Oxide 16%) 171 Appln/57 Gm Jar) 1 appln EXT TID [facility]; Protocol Stop: 07/23/20 20:59 Last Admin: 06/25/20 14:34 Dose: Not Given Documented by: Senna/Docusate Sodium (Docusate Sodium/Senna 50/8.6mg Tab) 1 tab PO BID [facility] Stop: 07/23/20 20:59 Last Admin: 06/25/20 07:54 Dose: 1 tab Documented by: (1) Urinary tract infection Hematuria presence: without hematuria Urinary tract infection type: site unspecified Qualified Code(s): N39.0 - Urinary tract infection, site not specified
[2020-06-25] MEDS: cefTRIAXone SODIUM 1,000 MG in DEXTROSE 5% 50 ML IV SCH (17:27)
[2020-06-25] MEDS: FLUTICASONE/VILANTEROL 100/25MCG 14 PUFFS/INHALER INH SCH (20:12)
[2020-06-25] MEDS: MONTELUKAST SODIUM 10 MG TABLET PO SCH (21:14)
[2020-06-26 06:30] LABS: Mean Corpuscular Hemoglobin 31.6 pg (25-34); Mean Corpuscular Hgb Conc 32.4 g/dL (32-36); Mean Corpuscular Volume 97.4 fL (80-100); Mean Platelet Volume 12.3 fL (7.4-10.4); Platelet Count 112 K/uL (130-400); RDW Coefficient of Variation 16.8 % (11.5-14.5); RDW Standard Deviation 59.3 fL (36.4-46.3); White Blood Count 7.87 K/uL (4.8-10.8)
[2020-06-26 06:31] LABS: Basophils # (auto) 0.01 K/uL (0-0.2); Basophils % (auto) 0.1 %; Eosinophils # (auto) 0.03 K/uL (0-0.5); Eosinophils % (auto) 0.4 %; Immature Granulocytes # (auto) 0.02 K/uL (0.00-0.02); Immature Granulocytes % (auto) 0.3 %; Lymphocytes # (auto) 0.88 K/uL (1.2-3.4); Lymphocytes % (auto) 11.2 %; Monocytes # (auto) 0.33 K/uL (0.11-0.59); Monocytes % (auto) 4.2 %; Neutrophils % (auto) 83.8 %
[2020-06-26 06:50] LABS: BUN Creatinine Ratio 37.7 (10-20); Calcium 9.4 mg/dl (8.5-10.1); Est GFR (African American) 21.6; Est GFR (Non-African American) 18.6
[2020-06-26] MEDS: METOPROLOL TARTRATE 25 MG TAB PO SCH (08:16)
[2020-06-26] MEDS: PANTOprazole 40 MG TAB PO SCH (08:16)
[2020-06-26] MEDS: FLUTICASONE PROPIONATE NA SPR 16 GM BTL SCH (08:16)
[2020-06-26] MEDS: HEPARIN SOD 5,000 UNIT/0.5 ML VIAL SQ SCH ×2 (08:16→21:47)
[2020-06-26] MEDS: amLODIPine BESYLATE 5 MG TAB PO SCH (08:16)
[2020-06-26] MEDS: METOCLOPRAMIDE HCL 5 MG TABLET PO SCH ×2 (08:16→18:29)
[2020-06-26] MEDS: LORATADINE 10 MG TAB PO SCH (08:16)
[2020-06-26] MEDS: MICONAZOLE NITRATE POWDER 43 GM EXT PRN (08:17)
[2020-06-26] MEDS: CLOBETASOL PROPIONATE 0.05% OINT 15 GM TUBE EXT SCH (08:17)
[2020-06-26] MEDS: NYSTATIN CR 15 GM TUBE EXT SCH ×2 (08:18→21:44)
[2020-06-26] MEDS: CEROVITE ADV FORMULA TAB PO SCH (08:18)
[2020-06-26] MEDS: BUTT PASTE (ZINC OXIDE 16%) 171 APPLN/57 GM JAR EXT SCH ×3 (08:18→21:44)
[2020-06-26] MEDS: CALCIUM CARBONATE 500 MG CHEWABLE TAB PO SCH ×3 (08:19→18:29)
[2020-06-26] MEDS: DOCUSATE SODIUM/SENNA 50/8.6MG TAB PO SCH ×2 (08:19→21:48)
[2020-06-26] MEDS: INSULIN GLARGINE SOLOSTAR 100 UNITS/ML 3 ML PEN SQ SCH (10:04)
--- NOTE | 2020-06-26 12:48 | Gastrointestinal Consultation ---
Date of Consultation June 26, 2020 Assessment & Plan (1) Oropharyngeal dysphagia: After tx of UTI and possible pneumonia, then would consider full video swallow. If still with oropharyngeal dysphagia, and if family wishes for PEG tube then it could be arranged. Prefer to avoid EGD now as would likely necessitate doing repeat if normal EGD and PEG is requested by family. Present on Admission?: Yes Supervising Physician Co-Signing Physician Notes Attending attestation I have seen, examined this patient, and agree with the findings and above by our mid-level provider HASEEB Lara, with the following additions: Patient appears debilitated, I carefully read the speech evaluation from yesterday who remarked on desire for video swallow. Based upon that history as well as the history that she has become acutely weakened during this hospitalization which is exacerbated the symptoms, then I would encourage treatment with IV fluids IV antibiotics & p.o. as tolerated and reevaluate her clinical status, per her history I do not think that a EGD would likely be therapeutic in nature and therefore if family desires to pursue feeding tube, this can be accomplished under one anesthesia given her weakness and high risk state. History of Present Illness Reason for Consultation: Dysphagia Requesting Physician: Dr. Salas Attending Physician: Jamal Salas MD History of Present Illness Ms. Traci Christensen is an 89yr old female pt of Jess Cortez PA-C who lives at [facility]. She carries a hx of DM-2, CKD-IV, HTN, CAD, CHF, PVD, diabetic retinopathy, pressure ulcers. She was admitted for weakness. She is being tx for UTI, possible pneumonia. G= She has a long hx of dysphagia, having undergone EGDs in 2016 and 2018 with empiric dilation. She was seen in GI clinic a month ago and when asked reported esophageal dilation did not help her symptoms in the past and for this reason EGD was deferred with plans for UGI series. Most recent prior EGD in 2018 did not show any cause of dysphagia. During this hospitalization, she was seen at the bedside by speech path who documented signs of aspiration with all textures. Video swallow was deferred. Allergies Allergy/AdvReac Type Severity Reaction Status Date / Time clofibrate Allergy Severe SWELLING Verified 06/23/20 18:17 rabeprazole Allergy Intermediate SOB/COUGHING Verified 06/23/20 18:17 AND THROAT FELT TIGHT/ABD. CRAMPING fexofenadine Allergy Mild RASH Verified 06/23/20 18:17 Fibrate Anti-Lipidemics Allergy Mild SWELLING Verified 06/23/20 18:17 fluvastatin Allergy Mild HIVES Verified 06/23/20 18:17 metformin Allergy Mild URINARY Verified 06/23/20 18:17 FREQUENCY/RASH/ITCH morphine Allergy Mild ITCHY/HIVES Verified 06/23/20 18:17 moxifloxacin Allergy Mild ITCHY/NAUSE Verified 06/23/20 18:17 A Penicillins Allergy Mild HIVES Verified 06/25/20 13:30 Quinolones Allergy Mild RASH Verified 06/23/20 18:17 amoxicillin Allergy Unknown Unknown Verified 06/23/20 18:17 chlorpropamide Allergy Unknown UNKNOWN Verified 06/23/20 18:17 NSAIDS (Non-Steroidal Allergy Unknown UNKNOWN Verified 06/23/20 18:17 Anti-Inflamma ranitidine Allergy Unknown Unknown Verified 06/23/20 18:17 Sulfa (Sulfonamide Allergy Unknown UNKNOWN Verified 06/23/20 18:17 Antibiotics) blue dye AdvReac Mild MYALGIAS Verified 06/23/20 18:17 AND CRAMPS codeine AdvReac Mild FEELS Verified 06/23/20 18:17 "HIGH" ON/ITCHING dexlansoprazole AdvReac Mild MYALGIAS Verified 06/23/20 18:17 AND CRAMPS gemfibrozil AdvReac Mild ABDOMINAL Verified 06/23/20 18:17 CRAMPS AND DIZZINESS lisinopril AdvReac Mild COUGH Verified 06/23/20 18:17 lorazepam AdvReac Mild 0 Verified 06/23/20 18:17 rofecoxib AdvReac Mild INDIGESTION Verified 06/23/20 18:17 Home Medications Home Medications Medication Instructions Recorded Confirmed Type losartan 25 mg tablet 25 mg PO DAILY tab 01/22/19 06/23/20 History montelukast 10 mg tablet 10 mg PO DAILY 01/22/19 06/23/20 History Basaglar KwikPen U-100 Insulin 4 unit SUBCUT DAILY 03/05/19 06/23/20 History allopurinol 200 mg PO DAILY 03/05/19 06/23/20 History fluticasone propionate [Flonase 2 spray INTRANASAL DAILY 03/05/19 06/23/20 History Allergy Relief] loratadine 10 mg PO DAILY 03/05/19 06/23/20 History sennosides-docusate sodium 2 tab PO BID 03/05/19 06/23/20 History [Senna-S] metoprolol tartrate 25 mg PO QAM 06/23/19 06/23/20 History Aroma Therapy See Rx Instructions .ROUTE .COMPLEX 06/23/20 06/23/20 History acetaminophen 500 mg PO HS MDD 3000 MG APAP/24 06/23/20 06/23/20 History HOURS acetaminophen 650 mg PO Q4H PRN MDD 3000 MG 06/23/20 06/23/20 History APAP/24 HOURS alum-mag hydroxide-simeth [Antacid 30 ml PO ACHS 06/23/20 06/23/20 History Anti-Gas] amlodipine 5 mg PO DAILY 06/23/20 06/23/20 History aspirin 81 mg PO DAILY 06/23/20 06/23/20 History azelastine 2 spray INTRANASAL AMHS 06/23/20 06/23/20 History bumetanide 1 mg PO DAILY 06/23/20 06/23/20 History fluticasone furoate-vilanterol 1 inh INHALATION DAILY 06/23/20 06/23/20 History [Breo Ellipta] ipratropium-albuterol 3 ml INHALATION BID 06/23/20 06/23/20 History ipratropium-albuterol 3 ml INHALATION Q4H PRN 06/23/20 06/23/20 History iron,carbonyl-vitamin C [Vitron-C] 1 tab PO DAILY 06/23/20 06/23/20 History isosorbide dinitrate 30 mg PO QAM 06/23/20 06/23/20 History lanolin [id number] 1 applic TOPICAL BID 06/23/20 06/23/20 History [Eucerin] mirtazapine 30 mg PO HS 06/23/20 06/23/20 History omeprazole 40 mg PO QAM 06/23/20 06/23/20 History ondansetron HCl [Zofran] 4 mg PO Q6H PRN 06/23/20 06/23/20 History polyethylene glycol 3350 17 g PO DAILY 06/23/20 06/23/20 History sodium chloride [Saline Nasal] 2 spray INTRANASAL DIRECTED 06/23/20 06/23/20 History Patient History Medical History Anemia Asthma CAD (coronary atherosclerotic disease) CKD (chronic kidney disease) stage 4, GFR 15-29 ml/min Diabetes GERD (gastroesophageal reflux disease) HTN, goal to be determined Hyperparathyroidism Obesity PVD (peripheral vascular disease) Surgical History H/O right coronary artery stent placement S/P abdominal hysterectomy S/P cholecystectomy Family History Other No pertinent family history in first degree relatives Social History Smoking Status: Unknown if ever smoked Hx Alcohol Use: No Hx Substance Use: No Preferred Language: Thai Communication Ability: Effective Visual Impairment: Limited Hearing Ability: Hard of Hearing Transportation Solutions Manager Required: No Beliefs That Will Affect Care: None marital status: / Current Living Situation: Personal Care Facility Current Living Situation Comment: [facility] current occupational status: retired Feels Safe at Home: Yes Assistive Devices: Glasses and Oxygen - Continuous Review of Systems Review of Systems: Pt answered "no" or didn't answer when asked the ROS questions, except indicated that she has difficulty swallowing and points to her mid chest. Poor historian and minimally conversational. Physical Exam Constitutional: + ill appearing (chronically), + obese and + physical limitations (globally weak) Eyes: PERRL, conjunctivae normal, anicteric sclerae ENMT: external ear and nose normal, oropharynx normal Neck: trachea midline, no thyromegaly Respiratory: normal respiratory effort, lungs clear to auscultation Auscultation: + diminished lung sounds Cardiovascular: Rate/Rhythm: regular rate 2/6 systolic murmur Gastrointestinal (Abdomen): normal bowel sounds, soft, nontender, no hepatosplenomegaly Skin: + turgor decreased and + lesion (pressure dressing on heal) Neurologic: PERRL, EOMI, accommodation nl, no face palsy, no dysarthria Psychiatric: Orientation: alert Affect: + flat affect Insight: + poor insight Lymphatic: no cervical or axillary lymphadenopathy Results & Data ([facility]) Vital Signs (Past 12 Hours) Vital Signs Temp Pulse Resp BP BP Pulse Ox 10/02/20 11:17 36.1 C L 99 H 16 170/79 H 92 06/26/20 07:59 36.5 C 92 H 16 165/70 H 97 06/26/20 03:23 36.3 C L 60 16 113/[address] abd/pelvis w/o contrast 06/23/20: 1. No evidence of bowel obstruction. No evidence of free air 2. Advanced atherosclerotic calcification 3. Bilateral lower lobe pulmonary airspace opacity suspicious for pneumonia. Given the appearance, a viral pneumonia such as Covid-19 must be considered within the differential CXR 06/23/20: Nonspecific right basilar opacities, atelectatic versus infectious/inflammatoru
--- NOTE | 2020-06-26 14:17 | Hospitalist Progress Note ---
Date of Service June 26, 2020 Assessment & Plan (1) Esophageal dysmotility: [facility] Will ask for speech therapy evaluation Failed bedside swallowing evaluation and did not go for barium swallow due to risk of aspiration CT scan of the abdomen pelvis is unremarkable [facility] consulted for possible EGD and dilatation with history of esophageal dilatation in the past Has had esophageal dilation in the past without any improvement on swallowing Her swallowing is seems to be cricopharyngeal and likely not to get any better with esophageal dilatation as per GI Plan to have reevaluation by speech since the patient is getting better from infection The problem of swallowing and aspiration persist, the next option would be PEG tube placement if everyone agrees on that (2) Urinary tract infection: Presented with anorexia and nausea with vomiting Noted to have high white count of 17,000 with urine examination suggestive of infection Did not have any fever at presentation and tachycardia did not persist. Doubt any sepsis Urine has been sent for culture and blood has been sent for culture to Started with intravenous ceftriaxone Covid-Negative Ceftriaxone has been discontinued Ertapenem has been discontinued and ceftriaxone has been restarted Possible aspiration pneumonia Has history of esophageal dysmotility and as below Antibiotic has been changed to intravenous ertapenem Clinically a lot better and no evidence of lobar consolidation Will de-escalate antibiotic to intravenous ceftriaxone for now Sacral decubiti ulcer stage III Dry and does not look like acutely infected Continue with wound care (3) Acute kidney injury superimposed on chronic kidney disease: Has history of chronic kidney disease stage IV Has acute on chronic kidney disease secondary to dehydration and use of diuretics and lisinopril Will hold diuretics and lisinopril for now Start adequate amount of intravenous fluid Creatinine has been improving We will advise increase fluid intake orally Seems to be having fluid overload-we will restrict oral intake to 1200 mL a day (4) (HFpEF) heart failure with preserved ejection fraction: Has history of atrial fibrillation and heart failure with preserved EF No signs of fluid overload Will give cautious amount of intravenous fluid for acute dehydration Hold lisinopril and furosemide for now Events of fluid overload Will get Bumex 1 mg IV and reduce oral intake to 1200 mL a day Clinically a lot better today Mild elevation of troponin Acute secondary to acute on chronic kidney disease EKG shows atrial fibrillation with right axis deviation, inferior infarct age undetermined lateral T wave inversion Doubt any ACS will repeat second set of troponin Second set of troponin improved Troponin elevation is secondary to acute on chronic kidney disease No ACS of any kind (5) Type 2 diabetes mellitus: Continue current medications Her on SSI (6) Asthma, moderate: No acute symptoms (7) Chronic a-fib: Chronic atrial fibrillation Rate is controlled now As per the epic note she has not been on any Coumadin DVT prophylaxis Heparin SQ CODE STATUS Full Discussed with the son in detailed Admission and Anticipated Discharge Date Admission Date: June 23, 2020 Subjective 06/24/20 Patient was seen and examined in medical telemetry unit She has had episodes of shortness of breath with coughing last night and the x- ray did show right lower lobe infiltration likely secondary to aspiration Has been doing much better this morning Denies any significant symptoms 06/25/2020 The patient was seen and examined in medical telemetry unit She complains today of some shortness of breath but does not look to be short of breath She failed bedside swallowing test and the did not go for barium swallow due to high risk of aspiration 06/26/2020 The patient was seen and examined in detail telemetry unit in presence of the son She has been doing much better today Still has a problem of aspiration while eating Review of Systems Review of Systems: All systems reviewed and are unremarkable except as noted below Respiratory: + cough; no dyspnea Physical Exam Physical Exam: Lying in bed comfortably Constitutional: + thin; no acute distress and not ill appearing Eyes: PERRL, conjunctivae normal, anicteric sclerae ENMT: external ear and nose normal, oropharynx normal Neck: trachea midline, no thyromegaly Respiratory: normal respiratory effort; no respiratory distress Auscultation: + diminished lung sounds and + crackles (Right basilar crackles) Cardiovascular: Rate/Rhythm: + abnormal rate and + abnormal rhythm Heart Sounds: + murmur (2/6 ESM over precordium) Gastrointestinal (Abdomen): Inspection/Auscultation: abdomen normal to inspection and normal bowel sounds; abdomen not distended Percussion/Palpation: abdomen soft Musculoskeletal: No acute arthritis involving any joint Neurologic: moves all extremities; no focal motor deficits Psychiatric: A+Ox3, euthymic affect Lymphatic: no cervical or axillary lymphadenopathy Results & Data Results & Data ([facility]) Vital Signs (Past 12 Hours) Vital Signs Temp Pulse Resp BP BP Pulse Ox 06/26/20 11:17 36.1 C L 99 H 16 170/79 H 92 06/26/20 07:59 36.5 C 92 H 16 165/70 H 97 06/26/20 03:23 36.3 C L 60 16 113/69 92 Laboratory Results Short CBC 06/26/20 Range/Units 06:00 WBC 7.87 (4.8-10.8) K/uL Hgb 12.0 (12.0-16.0) g/dL Hct 37.0 (37-47) % Plt Count 112 L (130-400) K/uL BMP 06/26/20 06/26/20 06:00 07:22 Sodium 147 H Potassium 4.6 Chloride 114 H Carbon Dioxide 25 BUN 85 H Creatinine 2.26 H D Glucose 86 Calcium 9.4 Medications Administered Current Inpatient Medications Acetaminophen (Acetaminophen 325 Mg Tab) 650 mg PO Q4H PRN PRN Reason: Pain or Fever Stop: 07/25/20 07:42 Last Admin: 06/25/20 07:53 Dose: 650 mg Documented by: Albuterol (Albuterol Hfa 8 Gm Inhaler) 2 puffs INH Q4H PRN PRN Reason: wheezing Stop: 07/23/20 19:13 Last Admin: 06/25/20 21:41 Dose: 2 puffs Documented by: Amlodipine Besylate (Amlodipine Besylate 5 Mg Tab) 10 mg PO DAILY BRANDON Stop: 07/24/20 08:59 Last Admin: 06/26/20 08:16 Dose: 10 mg Documented by: Calcium Carbonate (Calcium Carbonate 500 Mg Chewable Tab) 500 mg PO TIDM BRANDON Stop: 07/24/20 07:59 Last Admin: 06/26/20 11:24 Dose: Not Given Documented by: Clobetasol Propionate (Clobetasol Propionate 0.05% Oint 15 Gm Tube) 1 appln EXT DAILY BRANDON Stop: 07/24/20 08:59 Last Admin: 06/26/20 08:17 Dose: 1 appln Documented by: Dextrose (Dextrose 50% 50 Ml Syringe) 25 - 50 ml IV UD PRN; Protocol PRN Reason: Hypoglycemia Protocol Stop: 07/23/20 19:44 Fluticasone Propionate (Fluticasone Propionate Na Spr 16 Gm Btl) 2 sprays NA DAILY BRANDON Stop: 07/24/20 08:59 Last Admin: 06/26/20 08:16 Dose: 2 sprays Documented by: Fluticasone/Vilanterol (Fluticasone/Vilanterol 100/25mcg 14 Puffs/Inhaler) 1 puffs INH HS BRANDON Stop: 07/23/20 20:59 Last Admin: 06/25/20 20:12 Dose: 1 puffs Documented by: Glucagon (Glucagon For Inj 1 Mg Vial) 1 mg IM UD PRN; Protocol PRN Reason: Hypoglycemia Protocol Stop: 07/23/20 19:44 Glucose (Glucose 40% Gel 15 Gm Tube) 15 - 30 gm PO UD PRN; Protocol PRN Reason: Hypoglycemia Protocol Stop: 07/23/20 19:44 Glucose (Glucose 10 Tabs/Tube) 4 - 8 tabs PO UD PRN; Protocol PRN Reason: Hypoglycemia Protocol Stop: 07/23/20 19:44 Heparin Sodium (Porcine) (Heparin Sod 5,000 Unit/0.5 Ml Vial) 5,000 units SQ Q12 BRANDON Stop: 07/23/20 20:59 Last Admin: 06/26/20 08:16 Dose: 5,000 units Documented by: Hydrocortisone (Hydrocortisone 2.5% Cr 30 Gm Tube) 1 appln EXT BID PRN PRN Reason: Rash Stop: 07/23/20 19:13 Ceftriaxone Sodium 1,000 mg/ (Dextrose) 50 mls @ 100 mls/hr IV Q24H BRANDON Stop: 06/29/20 18:29 Last Infusion: 06/25/20 17:59 Dose: Infused Documented by: Insulin Glargine (Insulin Glargine Solostar 100 Units/Ml 3 Ml Pen) 4 units SQ DAILY BRANDON Stop: 07/24/20 08:59 Last Admin: 06/26/20 10:04 Dose: Not Given Documented by: Loratadine (Loratadine 10 Mg Tab) 10 mg PO DAILY BRANDON Stop: 07/24/20 08:59 Last Admin: 06/26/20 08:16 Dose: 10 mg Documented by: Lorazepam (Lorazepam 0.5 Mg Tab) 0.25 mg PO TID PRN PRN Reason: Anxiety Stop: 07/23/20 19:13 Metoclopramide HCl (Metoclopramide Hcl 5 Mg Tablet) 5 mg PO BIDM BRANDON Stop: 07/24/20 07:59 Last Admin: 06/26/20 08:16 Dose: 5 mg Documented by: Metoprolol Tartrate (Metoprolol Tartrate 25 Mg Tab) 12.5 mg PO DAILY [facility] Stop: 07/23/20 19:13 Last Admin: 06/26/20 08:16 Dose: 12.5 mg Documented by: Miconazole Nitrate (Miconazole Nitrate Powder 43 Gm) 1 appln EXT PRN PRN PRN Reason: Affected Skin Folds Stop: 07/25/20 11:02 Last Admin: 06/26/20 08:17 Dose: 1 appln Documented by: Miscellaneous (Azelastine Order Awaiting Action) 1 ea N/A QS [facility] Stop: 07/24/20 00:00 Last Admin: 06/26/20 08:18 Dose: Not Given Documented by: Miscellaneous (Carbohydrates For Hypoglycemia ) 15 - 30 gm PO UD PRN PRN Reason: Hypoglycemia Treatment Stop: 07/23/20 19:44 Montelukast Sodium (Montelukast Sodium 10 Mg Tablet) 10 mg PO QPM [facility] Stop: 07/23/20 20:59 Last Admin: 06/25/20 21:14 Dose: 10 mg Documented by: Multivitamins/Minerals (Cerovite Adv Formula Tab) 1 tab PO DAILY [facility] Stop: 07/24/20 08:59 Last Admin: 06/26/20 08:18 Dose: 1 tab Documented by: Nystatin (Nystatin Cr 15 Gm Tube) 1 appln EXT BID [facility] Stop: 07/23/20 20:59 Last Admin: 06/26/20 08:18 Dose: 1 appln Documented by: Pantoprazole Sodium (Pantoprazole 40 Mg Tab) 40 mg PO DAILY [facility] Stop: 07/24/20 08:59 Last Admin: 06/26/20 08:16 Dose: 40 mg Documented by: Petrolatum (Butt Paste (Zinc Oxide 16%) 171 Appln/57 Gm Jar) 1 appln EXT TID [facility]; Protocol Stop: 07/23/20 20:59 Last Admin: 06/26/20 12:32 Dose: Not Given Documented by: Senna/Docusate Sodium (Docusate Sodium/Senna 50/8.6mg Tab) 1 tab PO BID [facility] Stop: 07/23/20 20:59 Last Admin: 06/26/20 08:19 Dose: 1 tab Documented by: (1) Urinary tract infection Hematuria presence: without hematuria Urinary tract infection type: site unspecified Qualified Code(s): N39.0 - Urinary tract infection, site not sp ecified
[2020-06-26] MEDS: cefTRIAXone SODIUM 1,000 MG in DEXTROSE 5% 50 ML IV SCH (18:43)
[2020-06-26] MEDS: FLUTICASONE/VILANTEROL 100/25MCG 14 PUFFS/INHALER INH SCH (21:44)
[2020-06-26] MEDS: MONTELUKAST SODIUM 10 MG TABLET PO SCH (21:45)
[2020-06-27] MEDS: LORATADINE 10 MG TAB PO SCH (08:05)
[2020-06-27] MEDS: amLODIPine BESYLATE 5 MG TAB PO SCH (08:06)
[2020-06-27] MEDS: METOPROLOL TARTRATE 25 MG TAB PO SCH (08:06)
[2020-06-27] MEDS: PANTOprazole 40 MG TAB PO SCH (08:08)
[2020-06-27] MEDS: METOCLOPRAMIDE HCL 5 MG TABLET PO SCH ×2 (08:08→17:47)
[2020-06-27] MEDS: CEROVITE ADV FORMULA TAB PO SCH (08:08)
[2020-06-27] MEDS: FLUTICASONE PROPIONATE NA SPR 16 GM BTL SCH (08:09)
[2020-06-27] MEDS: CLOBETASOL PROPIONATE 0.05% OINT 15 GM TUBE EXT SCH (08:10)
[2020-06-27] MEDS: BUTT PASTE (ZINC OXIDE 16%) 171 APPLN/57 GM JAR EXT SCH ×3 (08:10→20:53)
[2020-06-27] MEDS: NYSTATIN CR 15 GM TUBE EXT SCH ×2 (08:10→20:55)
[2020-06-27] MEDS: HEPARIN SOD 5,000 UNIT/0.5 ML VIAL SQ SCH ×2 (08:12→20:55)
[2020-06-27] MEDS: INSULIN GLARGINE SOLOSTAR 100 UNITS/ML 3 ML PEN SQ SCH (08:12)
[2020-06-27] MEDS: DOCUSATE SODIUM/SENNA 50/8.6MG TAB PO SCH ×2 (08:15→20:56)
[2020-06-27] MEDS: CALCIUM CARBONATE 500 MG CHEWABLE TAB PO SCH ×3 (08:15→17:51)
--- NOTE | 2020-06-27 13:58 | Hospitalist Progress Note ---
Date of Service June 27, 2020 Assessment & Plan (1) Esophageal dysmotility: [facility] Will ask for speech therapy evaluation Failed bedside swallowing evaluation and did not go for barium swallow due to risk of aspiration CT scan of the abdomen pelvis is unremarkable [facility] consulted for possible EGD and dilatation with history of esophageal dilatation in the past Has had esophageal dilation in the past without any improvement on swallowing Her swallowing is seems to be cricopharyngeal and likely not to get any better with esophageal dilatation as per GI Plan to have reevaluation by speech since the patient is getting better from infection The problem of swallowing and aspiration persist, the next option would be PEG tube placement if everyone agrees on that (2) Urinary tract infection: Presented with anorexia and nausea with vomiting Noted to have high white count of 17,000 with urine examination suggestive of infection Did not have any fever at presentation and tachycardia did not persist. Doubt any sepsis Urine has been sent for culture and blood has been sent for culture to Started with intravenous ceftriaxone Covid-Negative Ceftriaxone has been discontinued Ertapenem has been discontinued and ceftriaxone has been restarted Possible aspiration pneumonia Has history of esophageal dysmotility and as below Antibiotic has been changed to intravenous ertapenem Clinically a lot better and no evidence of lobar consolidation Will de-escalate antibiotic to intravenous ceftriaxone for now Advised to concentrate while swallowing to prevent aspiration Sacral decubiti ulcer stage III Dry and does not look like acutely infected Continue with wound care (3) Acute kidney injury superimposed on chronic kidney disease: Has history of chronic kidney disease stage IV Has acute on chronic kidney disease secondary to dehydration and use of diuretics and lisinopril Will hold diuretics and lisinopril for now Start adequate amount of intravenous fluid Creatinine has been improving We will advise increase fluid intake orally Seems to be having fluid overload-we will restrict oral intake to 1200 mL a day (4) (HFpEF) heart failure with preserved ejection fraction: Has history of atrial fibrillation and heart failure with preserved EF No signs of fluid overload Will give cautious amount of intravenous fluid for acute dehydration Hold lisinopril and furosemide for now Events of fluid overload Will get Bumex 1 mg IV and reduce oral intake to 1200 mL a day Minimally short of breath today and will give Bumex 1 mg IV We will try Bumex 1 mg p.o. daily from tomorrow Mild elevation of troponin Acute secondary to acute on chronic kidney disease EKG shows atrial fibrillation with right axis deviation, inferior infarct age undetermined lateral T wave inversion Doubt any ACS will repeat second set of troponin Second set of troponin improved Troponin elevation is secondary to acute on chronic kidney disease No ACS of any kind (5) Type 2 diabetes mellitus: Continue current medications Her on SSI (6) Asthma, moderate: No acute symptoms (7) Chronic a-fib: Chronic atrial fibrillation Rate is controlled now As per the epic note she has not been on any Coumadin DVT prophylaxis Heparin SQ CODE STATUS Full Discussed with the son in detailed Admission and Anticipated Discharge Date Admission Date: June 23, 2020 Subjective 06/24/20 Patient was seen and examined in medical telemetry unit She has had episodes of shortness of breath with coughing last night and the x- ray did show right lower lobe infiltration likely secondary to aspiration Has been doing much better this morning Denies any significant symptoms 06/25/2020 The patient was seen and examined in medical telemetry unit She complains today of some shortness of breath but does not look to be short of breath She failed bedside swallowing test and the did not go for barium swallow due to high risk of aspiration 06/26/2020 The patient was seen and examined in detail telemetry unit in presence of the son She has been doing much better today Still has a problem of aspiration while eating 06/27/2020 The patient was seen and examined in medical telemetry unit She complains today of shortness of breath at rest denies any other symptoms Continues to have aspiration while eating Review of Systems Review of Systems: All systems reviewed and are unremarkable except as noted below Respiratory: + cough; no dyspnea Physical Exam Physical Exam: Lying in bed comfortably Constitutional: + thin; no acute distress and not ill appearing Eyes: PERRL, conjunctivae normal, anicteric sclerae ENMT: external ear and nose normal, oropharynx normal Neck: trachea midline, no thyromegaly Respiratory: normal respiratory effort; no respiratory distress Auscultation: + diminished lung sounds and + crackles (Bilateral at the bases) Cardiovascular: Rate/Rhythm: + abnormal rate and + abnormal rhythm Heart Sounds: + murmur (2/6 ESM over precordium) Gastrointestinal (Abdomen): Inspection/Auscultation: abdomen normal to inspection and normal bowel sounds; abdomen not distended Percussion/Palpation: abdomen soft Musculoskeletal: No acute arthritis involving any joint Neurologic: moves all extremities; no focal motor deficits Psychiatric: A+Ox3, euthymic affect Lymphatic: no cervical or axillary lymphadenopathy Results & Data Results & Data ([facility]) Vital Signs (Past 12 Hours) Vital Signs Temp Pulse Resp BP Pulse Ox 06/27/20 12:02 36.4 C L 80 20 145/75 H 98 06/27/20 08:06 36.7 C 69 18 149/74 H 100 06/27/20 03:48 36.3 C L 82 18 143/81 H 98 Medications Administered Current Inpatient Medications Acetaminophen (Acetaminophen 325 Mg Tab) 650 mg PO Q4H PRN PRN Reason: Pain or Fever Stop: 07/25/20 07:42 Last Admin: 06/25/20 07:53 Dose: 650 mg Documented by: Albuterol (Albuterol Hfa 8 Gm Inhaler) 2 puffs INH Q4H PRN PRN Reason: wheezing Stop: 07/23/20 19:13 Last Admin: 06/25/20 21:41 Dose: 2 puffs Documented by: Amlodipine Besylate (Amlodipine Besylate 5 Mg Tab) 10 mg PO DAILY BRANDON Stop: 07/24/20 08:59 Last Admin: 06/27/20 08:06 Dose: 10 mg Documented by: Calcium Carbonate (Calcium Carbonate 500 Mg Chewable Tab) 500 mg PO TIDM BRANDON Stop: 07/24/20 07:59 Last Admin: 06/27/20 13:41 Dose: Not Given Documented by: Clobetasol Propionate (Clobetasol Propionate 0.05% Oint 15 Gm Tube) 1 appln EXT DAILY BRANDON Stop: 07/24/20 08:59 Last Admin: 06/27/20 08:10 Dose: 1 appln Documented by: Dextrose (Dextrose 50% 50 Ml Syringe) 25 - 50 ml IV UD PRN; Protocol PRN Reason: Hypoglycemia Protocol Stop: 07/23/20 19:44 Fluticasone Propionate (Fluticasone Propionate Na Spr 16 Gm Btl) 2 sprays NA DAILY BRANDON Stop: 07/24/20 08:59 Last Admin: 06/27/20 08:09 Dose: 2 sprays Documented by: Fluticasone/Vilanterol (Fluticasone/Vilanterol 100/25mcg 14 Puffs/Inhaler) 1 puffs INH HS BRANDON Stop: 07/23/20 20:59 Last Admin: 06/26/20 21:44 Dose: 1 puffs Documented by: Glucagon (Glucagon For Inj 1 Mg Vial) 1 mg IM UD PRN; Protocol PRN Reason: Hypoglycemia Protocol Stop: 07/23/20 19:44 Glucose (Glucose 40% Gel 15 Gm Tube) 15 - 30 gm PO UD PRN; Protocol PRN Reason: Hypoglycemia Protocol Stop: 07/23/20 19:44 Glucose (Glucose 10 Tabs/Tube) 4 - 8 tabs PO UD PRN; Protocol PRN Reason: Hypoglycemia Protocol Stop: 07/23/20 19:44 Heparin Sodium (Porcine) (Heparin Sod 5,000 Unit/0.5 Ml Vial) 5,000 units SQ Q12 BRANDON Stop: 07/23/20 20:59 Last Admin: 06/27/20 08:12 Dose: 5,000 units Documented by: Hydrocortisone (Hydrocortisone 2.5% Cr 30 Gm Tube) 1 appln EXT BID PRN PRN Reason: Rash Stop: 07/23/20 19:13 Ceftriaxone Sodium 1,000 mg/ (Dextrose) 50 mls @ 100 mls/hr IV Q24H BRANDON Stop: 06/29/20 18:29 Last Infusion: 06/26/20 18:48 Dose: 0 mls/hr Documented by: Insulin Glargine (Insulin Glargine Solostar 100 Units/Ml 3 Ml Pen) 4 units SQ DAILY BRANDON Stop: 07/24/20 08:59 Last Admin: 06/27/20 08:12 Dose: 4 units Documented by: Loratadine (Loratadine 10 Mg Tab) 10 mg PO DAILY BRANDON Stop: 07/24/20 08:59 Last Admin: 06/27/20 08:05 Dose: 10 mg Documented by: Lorazepam (Lorazepam 0.5 Mg Tab) 0.25 mg PO TID PRN PRN Reason: Anxiety Stop: 07/23/20 19:13 Metoclopramide HCl (Metoclopramide Hcl 5 Mg Tablet) 5 mg PO BIDM BRANDON Stop: 07/24/20 07:59 Last Admin: 06/27/20 08:08 Dose: 5 mg Documented by: Metoprolol Tartrate (Metoprolol Tartrate 25 Mg Tab) 12.5 mg PO DAILY BRANDON Stop: 07/23/20 19:13 Last Admin: 06/27/20 08:06 Dose: 12.5 mg Documented by: Miconazole Nitrate (Miconazole Nitrate Powder 43 Gm) 1 appln EXT PRN PRN PRN Reason: Affected Skin Folds Stop: 07/25/20 11:02 Last Admin: 06/26/20 08:17 Dose: 1 appln Documented by: Miscellaneous (Azelastine Order Awaiting Action) 1 ea N/A QS BRANDON Stop: 07/24/20 00:00 Last Admin: 06/27/20 08:04 Dose: Not Given Documented by: Miscellaneous (Carbohydrates For Hypoglycemia ) 15 - 30 gm PO UD PRN PRN Reason: Hypoglycemia Treatment Stop: 07/23/20 19:44 Montelukast Sodium (Montelukast Sodium 10 Mg Tablet) 10 mg PO QPM BRANDON Stop: 07/23/20 20:59 Last Admin: 06/26/20 21:45 Dose: 10 mg Documented by: Multivitamins/Minerals (Cerovite Adv Formula Tab) 1 tab PO DAILY [facility] Stop: 07/24/20 08:59 Last Admin: 06/27/20 08:08 Dose: 1 tab Documented by: Nystatin (Nystatin Cr 15 Gm Tube) 1 appln EXT BID [facility] Stop: 07/23/20 20:59 Last Admin: 06/27/20 08:10 Dose: 1 appln Documented by: Pantoprazole Sodium (Pantoprazole 40 Mg Tab) 40 mg PO DAILY [facility] Stop: 07/24/20 08:59 Last Admin: 06/27/20 08:08 Dose: 40 mg Documented by: Petrolatum (Butt Paste (Zinc Oxide 16%) 171 Appln/57 Gm Jar) 1 appln EXT TID [facility]; Protocol Stop: 07/23/20 20:59 Last Admin: 06/27/20 08:10 Dose: 1 appln Documented by: Senna/Docusate Sodium (Docusate Sodium/Senna 50/8.6mg Tab) 1 tab PO BID [facility] Stop: 07/23/20 20:59 Last Admin: 06/27/20 08:15 Dose: 1 tab Documented by: (1) Urinary tract infection Hematuria presence: without hematuria Urinary tract infection type: site unspecified Qualified Code(s): N39.0 - Urinary tract infection, site not specified
[2020-06-27] MEDS ORDERED: BUMETANIDE 1 MG in SYRINGE 0 ML IV ONE (14:15)
[2020-06-27] MEDS: cefTRIAXone SODIUM 1,000 MG in DEXTROSE 5% 50 ML IV SCH (17:47)
[2020-06-27] MEDS: FLUTICASONE/VILANTEROL 100/25MCG 14 PUFFS/INHALER INH SCH (20:54)
[2020-06-27] MEDS: MONTELUKAST SODIUM 10 MG TABLET PO SCH (20:56)
[2020-06-28 07:57] LABS: BUN Creatinine Ratio 50.2 (10-20); Calcium 8.6 mg/dl (8.5-10.1); Est GFR (African American) 42.5; Est GFR (Non-African American) 36.7; Potassium 4.2 mmol/L (3.5-5.1)
[2020-06-28] MEDS: amLODIPine BESYLATE 5 MG TAB PO SCH (09:49)
[2020-06-28] MEDS: METOCLOPRAMIDE HCL 5 MG TABLET PO SCH ×2 (09:56→17:57)
[2020-06-28] MEDS: CEROVITE ADV FORMULA TAB PO SCH (09:57)
[2020-06-28] MEDS: METOPROLOL TARTRATE 25 MG TAB PO SCH (09:57)
[2020-06-28] MEDS: LORATADINE 10 MG TAB PO SCH (09:57)
[2020-06-28] MEDS: CALCIUM CARBONATE 500 MG CHEWABLE TAB PO SCH ×4 (11:43→18:03)
[2020-06-28] MEDS: FLUTICASONE PROPIONATE NA SPR 16 GM BTL SCH (11:44)
[2020-06-28] MEDS: HEPARIN SOD 5,000 UNIT/0.5 ML VIAL SQ SCH ×2 (11:47→20:39)
[2020-06-28] MEDS: INSULIN GLARGINE SOLOSTAR 100 UNITS/ML 3 ML PEN SQ SCH (11:52)
[2020-06-28] MEDS: MICONAZOLE NITRATE POWDER 43 GM EXT PRN (11:57)
[2020-06-28] MEDS: BUTT PASTE (ZINC OXIDE 16%) 171 APPLN/57 GM JAR EXT SCH ×3 (11:57→20:39)
[2020-06-28] MEDS: NYSTATIN CR 15 GM TUBE EXT SCH ×2 (11:58→20:39)
[2020-06-28] MEDS: BUMETANIDE 1 MG TAB PO SCH (12:35)
[2020-06-28] MEDS: DOCUSATE SODIUM/SENNA 50/8.6MG TAB PO SCH ×2 (12:36→20:43)
[2020-06-28] MEDS: PANTOprazole 40 MG TAB PO SCH (12:36)
--- NOTE | 2020-06-28 12:58 | Hospitalist Progress Note ---
Date of Service June 28, 2020 Assessment & Plan (1) Esophageal dysmotility: Under care of [facility] Will ask for speech therapy evaluation Failed bedside swallowing evaluation and did not go for barium swallow due to risk of aspiration CT scan of the abdomen pelvis is unremarkable [facility] consulted for possible EGD and dilatation with history of esophageal dilatation in the past Has had esophageal dilation in the past without any improvement on swallowing Her swallowing is seems to be cricopharyngeal and likely not to get any better with esophageal dilatation as per GI Plan to have reevaluation by speech since the patient is getting better from infection The problem of swallowing and aspiration persist, the next option would be PEG tube placement if everyone agrees on that We will get reevaluation from speech on Monday (2) Urinary tract infection: Presented with anorexia and nausea with vomiting Noted to have high white count of 17,000 with urine examination suggestive of infection Did not have any fever at presentation and tachycardia did not persist. Doubt any sepsis Urine has been sent for culture and blood has been sent for culture to Started with intravenous ceftriaxone Covid-Negative Ceftriaxone has been discontinued Ertapenem has been discontinued and ceftriaxone has been restarted Denies any symptoms Possible aspiration pneumonia Has history of esophageal dysmotility and as below Antibiotic has been changed to intravenous ertapenem Clinically a lot better and no evidence of lobar consolidation Will de-escalate antibiotic to intravenous ceftriaxone for now Advised to concentrate while swallowing to prevent aspiration No more cough and/or shortness of breath Sacral decubiti ulcer stage III Dry and does not look like acutely infected Continue with wound care (3) Acute kidney injury superimposed on chronic kidney disease: Has history of chronic kidney disease stage IV Has acute on chronic kidney disease secondary to dehydration and use of diuretics and lisinopril Will hold diuretics and lisinopril for now Start adequate amount of intravenous fluid Creatinine has been improving We will advise increase fluid intake orally Seems to be having fluid overload-we will restrict oral intake to 1200 mL a day Has been receiving very small amount of Lasix (4) (HFpEF) heart failure with preserved ejection fraction: Has history of atrial fibrillation and heart failure with preserved EF No signs of fluid overload Will give cautious amount of intravenous fluid for acute dehydration Hold lisinopril and furosemide for now Events of fluid overload Will get Bumex 1 mg IV and reduce oral intake to 1200 mL a day Minimally short of breath today and will give Bumex 1 mg IV We will try Bumex 1 mg p.o. daily from tomorrow Mild elevation of troponin Acute secondary to acute on chronic kidney disease EKG shows atrial fibrillation with right axis deviation, inferior infarct age undetermined lateral T wave inversion Doubt any ACS will repeat second set of troponin Second set of troponin improved Troponin elevation is secondary to acute on chronic kidney disease No ACS of any kind (5) Type 2 diabetes mellitus: Continue current medications Her on SSI (6) Asthma, moderate: No acute symptoms (7) Chronic a-fib: Chronic atrial fibrillation Rate is controlled now As per the epic note she has not been on any Coumadin DVT prophylaxis Heparin SQ CODE STATUS Full Discussed with the son in detailed Admission and Anticipated Discharge Date Admission Date: June 23, 2020 Subjective 06/24/20 Patient was seen and examined in medical telemetry unit She has had episodes of shortness of breath with coughing last night and the x- ray did show right lower lobe infiltration likely secondary to aspiration Has been doing much better this morning Denies any significant symptoms 06/25/2020 The patient was seen and examined in medical telemetry unit She complains today of some shortness of breath but does not look to be short of breath She failed bedside swallowing test and the did not go for barium swallow due to high risk of aspiration 06/26/2020 The patient was seen and examined in detail telemetry unit in presence of the son She has been doing much better today Still has a problem of aspiration while eating 06/27/2020 The patient was seen and examined in medical telemetry unit She complains today of shortness of breath at rest denies any other symptoms Continues to have aspiration while eating 06/28/2020 The patient was seen and examined in medical telemetry unit She has been stable and feeling lot better Denies any shortness of breath today but he still complains to a problem with swallowing Review of Systems Review of Systems: All systems reviewed and are unremarkable except as noted below Respiratory: + cough; no dyspnea Physical Exam Physical Exam: Lying in bed comfortably Constitutional: + thin; no acute distress and not ill appearing Eyes: PERRL, conjunctivae normal, anicteric sclerae ENMT: external ear and nose normal, oropharynx normal Neck: trachea midline, no thyromegaly Respiratory: normal respiratory effort; no respiratory distress Auscultation: + diminished lung sounds and + crackles (Bilateral at the bases) Cardiovascular: Rate/Rhythm: + abnormal rate and + abnormal rhythm Heart Sounds: + murmur (2/6 ESM over precordium) Gastrointestinal (Abdomen): Inspection/Auscultation: abdomen normal to inspection and normal bowel sounds; abdomen not distended Percussion/Palpation: abdomen soft Musculoskeletal: No acute arthritis involving any joint Neurologic: moves all extremities; no focal motor deficits Psychiatric: A+Ox3, euthymic affect Lymphatic: no cervical or axillary lymphadenopathy Results & Data Results & Data ([facility]) Vital Signs (Past 12 Hours) Vital Signs Temp Pulse Pulse Resp BP Pulse Ox 06/28/20 11:24 36.6 C 72 18 152/81 H 100 06/28/20 07:09 74 06/28/20 06:53 36.6 C 73 20 112/75 97 06/28/20 03:00 36.4 C L 86 20 115/69 96 Laboratory Results [facility] 06/28/20 07:01 Sodium 145 Potassium 4.2 Chloride 112 H Carbon Dioxide 26 BUN 65 H Creatinine 1.29 H Glucose 79 Calcium 8.6 Medications Administered Current Inpatient Medications Acetaminophen (Acetaminophen 325 Mg Tab) 650 mg PO Q4H PRN PRN Reason: Pain or Fever Stop: 07/25/20 07:42 Last Admin: 06/25/20 07:53 Dose: 650 mg Documented by: Albuterol (Albuterol Hfa 8 Gm Inhaler) 2 puffs INH Q4H PRN PRN Reason: wheezing Stop: 07/23/20 19:13 Last Admin: 06/25/20 21:41 Dose: 2 puffs Documented by: Amlodipine Besylate (Amlodipine Besylate 5 Mg Tab) 10 mg PO DAILY [facility] Stop: 07/24/20 08:59 Last Admin: 06/28/20 09:49 Dose: Not Given Documented by: Bumetanide (Bumetanide 1 Mg Tab) 1 mg PO QAM [facility] Stop: 07/28/20 08:59 Last Admin: 06/28/20 12:35 Dose: Not Given Documented by: Calcium Carbonate (Calcium Carbonate 500 Mg Chewable Tab) 500 mg PO TIDM [facility] Stop: 07/24/20 07:59 Last Admin: 06/28/20 12:36 Dose: Not Given Documented by: Clobetasol Propionate (Clobetasol Propionate 0.05% Oint 15 Gm Tube) 1 appln EXT DAILY [facility] Stop: 07/24/20 08:59 Last Admin: 06/27/20 08:10 Dose: 1 appln Documented by: Dextrose (Dextrose 50% 50 Ml Syringe) 25 - 50 ml IV UD PRN; Protocol PRN Reason: Hypoglycemia Protocol Stop: 07/23/20 19:44 Fluticasone Propionate (Fluticasone Propionate Na Spr 16 Gm Btl) 2 sprays NA DAILY [facility] Stop: 07/24/20 08:59 Last Admin: 06/28/20 11:44 Dose: 2 sprays Documented by: Fluticasone/Vilanterol (Fluticasone/Vilanterol 100/25mcg 14 Puffs/Inhaler) 1 puffs INH HS [facility] Stop: 07/23/20 20:59 Last Admin: 06/27/20 20:54 Dose: 1 puffs Documented by: Glucagon (Glucagon For Inj 1 Mg Vial) 1 mg IM UD PRN; Protocol PRN Reason: Hypoglycemia Protocol Stop: 07/23/20 19:44 Glucose (Glucose 40% Gel 15 Gm Tube) 15 - 30 gm PO UD PRN; Protocol PRN Reason: Hypoglycemia Protocol Stop: 07/23/20 19:44 Glucose (Glucose 10 Tabs/Tube) 4 - 8 tabs PO UD PRN; Protocol PRN Reason: Hypoglycemia Protocol Stop: 07/23/20 19:44 Heparin Sodium (Porcine) (Heparin Sod 5,000 Unit/0.5 Ml Vial) 5,000 units SQ Q12 [facility] Stop: 07/23/20 20:59 Last Admin: 06/28/20 11:47 Dose: 5,000 units Documented by: Hydrocortisone (Hydrocortisone 2.5% Cr 30 Gm Tube) 1 appln EXT BID PRN PRN Reason: Rash Stop: 07/23/20 19:13 Ceftriaxone Sodium 1,000 mg/ (Dextrose) 50 mls @ 100 mls/hr IV Q24H [facility] Stop: 06/29/20 18:29 Last Infusion: 06/27/20 18:18 Dose: Infused Documented by: Insulin Glargine (Insulin Glargine Solostar 100 Units/Ml 3 Ml Pen) 4 units SQ DAILY [facility] Stop: 07/24/20 08:59 Last Admin: 06/28/20 11:52 Dose: 4 units Documented by: Loratadine (Loratadine 10 Mg Tab) 10 mg PO DAILY [facility] Stop: 07/24/20 08:59 Last Admin: 06/28/20 09:57 Dose: Not Given Documented by: Lorazepam (Lorazepam 0.5 Mg Tab) 0.25 mg PO TID PRN PRN Reason: Anxiety Stop: 07/23/20 19:13 Metoclopramide HCl (Metoclopramide Hcl 5 Mg Tablet) 5 mg PO BIDM [facility] Stop: 07/24/20 07:59 Last Admin: 06/28/20 09:56 Dose: Not Given Documented by: Metoprolol Tartrate (Metoprolol Tartrate 25 Mg Tab) 12.5 mg PO DAILY [facility] Stop: 07/23/20 19:13 Last Admin: 06/28/20 09:57 Dose: Not Given Documented by: Miconazole Nitrate (Miconazole Nitrate Powder 43 Gm) 1 appln EXT PRN PRN PRN Reason: Affected Skin Folds Stop: 07/25/20 11:02 Last Admin: 06/28/20 11:57 Dose: 1 appln Documented by: Miscellaneous (Azelastine Order Awaiting Action) 1 ea N/A QS [facility] Stop: 07/24/20 00:00 Last Admin: 06/28/20 11:11 Dose: Not Given Documented by: Miscellaneous (Carbohydrates For Hypoglycemia ) 15 - 30 gm PO UD PRN PRN Reason: Hypoglycemia Treatment Stop: 07/23/20 19:44 Montelukast Sodium (Montelukast Sodium 10 Mg Tablet) 10 mg PO QPM [facility] Stop: 07/23/20 20:59 Last Admin: 06/27/20 20:56 Dose: Not Given Documented by: Multivitamins/Minerals (Cerovite Adv Formula Tab) 1 tab PO DAILY [facility] Stop: 07/24/20 08:59 Last Admin: 06/28/20 09:57 Dose: Not Given Documented by: Nystatin (Nystatin Cr 15 Gm Tube) 1 appln EXT BID [facility] Stop: 07/23/20 20:59 Last Admin: 06/28/20 11:58 Dose: 1 appln Documented by: Pantoprazole Sodium (Pantoprazole 40 Mg Tab) 40 mg PO DAILY [facility] Stop: 07/24/20 08:59 Last Admin: 06/28/20 12:36 Dose: Not Given Documented by: Petrolatum (Butt Paste (Zinc Oxide 16%) 171 Appln/57 Gm Jar) 1 appln EXT TID [facility]; Protocol Stop: 07/23/20 20:59 Last Admin: 06/28/20 11:57 Dose: 1 appln Documented by: Senna/Docusate Sodium (Docusate Sodium/Senna 50/8.6mg Tab) 1 tab PO BID [facility] Stop: 07/23/20 20:59 Last Admin: 06/28/20 12:36 Dose: Not Given Documented by: (1) Urinary tract infection Hematuria presence: without hematuria Urinary tract infection type: site unspecified Qualified Code(s): N39.0 - Urinary tract infection, site not specified
[2020-06-28] MEDS: CLOBETASOL PROPIONATE 0.05% OINT 15 GM TUBE EXT SCH (14:16)
[2020-06-28] MEDS: ONDANSETRON INJ 2 MG/ML 2 ML VIAL IV PRN (17:55)
[2020-06-28] MEDS: cefTRIAXone SODIUM 1,000 MG in DEXTROSE 5% 50 ML IV SCH (17:56)
[2020-06-28] MEDS: FLUTICASONE/VILANTEROL 100/25MCG 14 PUFFS/INHALER INH SCH (20:39)
[2020-06-28] MEDS: MONTELUKAST SODIUM 10 MG TABLET PO SCH (20:43)
[2020-06-29] MEDS: METOCLOPRAMIDE HCL 5 MG TABLET PO SCH ×2 (08:32→16:16)
[2020-06-29] MEDS: LORATADINE 10 MG TAB PO SCH (08:32)
[2020-06-29] MEDS: BUMETANIDE 1 MG TAB PO SCH (08:32)
[2020-06-29] MEDS: CALCIUM CARBONATE 500 MG CHEWABLE TAB PO SCH ×3 (08:32→16:16)
[2020-06-29] MEDS: FLUTICASONE PROPIONATE NA SPR 16 GM BTL SCH (08:32)
[2020-06-29] MEDS: METOPROLOL TARTRATE 25 MG TAB PO SCH (08:32)
[2020-06-29] MEDS: CEROVITE ADV FORMULA TAB PO SCH (08:33)
[2020-06-29] MEDS: amLODIPine BESYLATE 5 MG TAB PO SCH (08:33)
[2020-06-29] MEDS: PANTOprazole 40 MG TAB PO SCH (08:33)
[2020-06-29] MEDS: DOCUSATE SODIUM/SENNA 50/8.6MG TAB PO SCH ×2 (08:33→20:35)
[2020-06-29] MEDS: NYSTATIN CR 15 GM TUBE EXT SCH ×2 (08:33→20:37)
[2020-06-29] MEDS: HEPARIN SOD 5,000 UNIT/0.5 ML VIAL SQ SCH ×2 (09:02→20:37)
[2020-06-29] MEDS: BUTT PASTE (ZINC OXIDE 16%) 171 APPLN/57 GM JAR EXT SCH ×3 (09:03→20:37)
[2020-06-29] MEDS: CLOBETASOL PROPIONATE 0.05% OINT 15 GM TUBE EXT SCH (09:03)
[2020-06-29] MEDS: ALBUTEROL HFA 8 GM INHALER INH PRN (09:23)
[2020-06-29] MEDS: ONDANSETRON INJ 2 MG/ML 2 ML VIAL IV PRN ×3 (09:32→17:03)
[2020-06-29] MEDS: INSULIN GLARGINE SOLOSTAR 100 UNITS/ML 3 ML PEN SQ SCH (09:46)
--- NOTE | 2020-06-29 11:50 | Hospitalist Progress Note ---
Date of Service June 29, 2020 Assessment & Plan (1) Esophageal dysmotility: Under care of [facility] Will ask for speech therapy evaluation Failed bedside swallowing evaluation and did not go for barium swallow due to risk of aspiration CT scan of the abdomen pelvis is unremarkable [facility] consulted for possible EGD and dilatation with history of esophageal dilatation in the past Has had esophageal dilation in the past without any improvement on swallowing Her swallowing is seems to be cricopharyngeal and likely not to get any better with esophageal dilatation as per GI Plan to have reevaluation by speech since the patient is getting better from infection The problem of swallowing and aspiration persist, the next option would be PEG tube placement if everyone agrees on that Ongoing dysphagia Seems to be secondary to upper esophageal/pharyngeal issue Dysphagia did not improve with prior esophageal dilatation Plan to get a reevaluation from speech therapy today If dysphagia persist with significant aspiration then the patient will need to have PEG tube placement for feeding Discussed with the patient and she is agreeable to have a PEG tube Will need to discuss with the family members (2) Urinary tract infection: Presented with anorexia and nausea with vomiting Noted to have high white count of 17,000 with urine examination suggestive of infection Did not have any fever at presentation and tachycardia did not persist. Doubt any sepsis Urine has been sent for culture and blood has been sent for culture to Started with intravenous ceftriaxone Covid-Negative Ceftriaxone has been discontinued Ertapenem has been discontinued and ceftriaxone has been restarted Denies any symptoms Possible aspiration pneumonia Has history of esophageal dysmotility and as below Antibiotic has been changed to intravenous ertapenem Clinically a lot better and no evidence of lobar consolidation Will de-escalate antibiotic to intravenous ceftriaxone for now Advised to concentrate while swallowing to prevent aspiration No more cough and/or shortness of breath Sacral decubiti ulcer stage III Dry and does not look like acutely infected Continue with wound care (3) Acute kidney injury superimposed on chronic kidney disease: Has history of chronic kidney disease stage IV Has acute on chronic kidney disease secondary to dehydration and use of diuretics and lisinopril Will hold diuretics and lisinopril for now Start adequate amount of intravenous fluid Creatinine has been improving We will advise increase fluid intake orally Seems to be having fluid overload-we will restrict oral intake to 1200 mL a day Has been receiving very small amount of Lasix (4) (HFpEF) heart failure with preserved ejection fraction: Has history of atrial fibrillation and heart failure with preserved EF No signs of fluid overload Will give cautious amount of intravenous fluid for acute dehydration Hold lisinopril and furosemide for now Events of fluid overload Will get Bumex 1 mg IV and reduce oral intake to 1200 mL a day Minimally short of breath today and will give Bumex 1 mg IV We will try Bumex 1 mg p.o. daily from tomorrow Mild elevation of troponin Acute secondary to acute on chronic kidney disease EKG shows atrial fibrillation with right axis deviation, inferior infarct age undetermined lateral T wave inversion Doubt any ACS will repeat second set of troponin Second set of troponin improved Troponin elevation is secondary to acute on chronic kidney disease No ACS of any kind (5) Type 2 diabetes mellitus: Continue current medications Her on SSI (6) Asthma, moderate: No acute symptoms (7) Chronic a-fib: Chronic atrial fibrillation Rate is controlled now As per the epic note she has not been on any Coumadin DVT prophylaxis Heparin SQ CODE STATUS Full Discussed with the son in detailed Admission and Anticipated Discharge Date Admission Date: June 23, 2020 Subjective 06/24/20 Patient was seen and examined in medical telemetry unit She has had episodes of shortness of breath with coughing last night and the x- ray did show right lower lobe infiltration likely secondary to aspiration Has been doing much better this morning Denies any significant symptoms 06/25/2020 The patient was seen and examined in medical telemetry unit She complains today of some shortness of breath but does not look to be short of breath She failed bedside swallowing test and the did not go for barium swallow due to high risk of aspiration 06/26/2020 The patient was seen and examined in detail telemetry unit in presence of the son She has been doing much better today Still has a problem of aspiration while eating 06/27/2020 The patient was seen and examined in medical telemetry unit She complains today of shortness of breath at rest denies any other symptoms Continues to have aspiration while eating 06/28/2020 The patient was seen and examined in medical telemetry unit She has been stable and feeling lot better Denies any shortness of breath today but he still complains to a problem with swallowing 06/29/2020 The patient was seen and examined in medical telemetry unit She has been complaining of dysphagia which has been ongoing for a long time and that did not improve even with esophageal dilatation in the past She will have a reevaluation of her swallowing by the speech therapist today Denies any other significant symptoms Review of Systems Review of Systems: All systems reviewed and are unremarkable except as noted below Respiratory: + cough; no dyspnea Physical Exam Physical Exam: Lying in bed comfortably Constitutional: + thin; no acute distress and not ill appearing Eyes: PERRL, conjunctivae normal, anicteric sclerae ENMT: external ear and nose normal, oropharynx normal Neck: trachea midline, no thyromegaly Respiratory: normal respiratory effort; no respiratory distress Auscultation: + diminished lung sounds and + crackles (Bilateral at the bases) Cardiovascular: Rate/Rhythm: + abnormal rate and + abnormal rhythm Heart Sounds: + murmur (2/6 ESM over precordium) Gastrointestinal (Abdomen): Inspection/Auscultation: abdomen normal to inspec tion and normal bowel sounds; abdomen not distended Percussion/Palpation: abdomen soft Musculoskeletal: No acute arthritis involving any joints Neurologic: moves all extremities; no focal motor deficits Psychiatric: A+Ox3, euthymic affect Lymphatic: no cervical or axillary lymphadenopathy Results & Data Results & Data ([facility]) Vital Signs (Past 12 Hours) Vital Signs Temp Pulse Pulse Resp BP BP Pulse Ox 06/29/20 11:41 36.5 C 78 78 18 120/69 91 06/29/20 09:23 68 18 97 06/29/20 07:15 36.5 C 72 20 150/83 H 100 06/29/20 03:17 36.6 C 71 18 128/67 100 Medications Administered Current Inpatient Medications Acetaminophen (Acetaminophen 325 Mg Tab) 650 mg PO Q4H PRN PRN Reason: Pain or Fever Stop: 07/25/20 07:42 Last Admin: 06/25/20 07:53 Dose: 650 mg Documented by: Albuterol (Albuterol Hfa 8 Gm Inhaler) 2 puffs INH Q4H PRN PRN Reason: wheezing Stop: 07/23/20 19:13 Last Admin: 06/29/20 09:23 Dose: 2 puffs Documented by: Amlodipine Besylate (Amlodipine Besylate 5 Mg Tab) 10 mg PO DAILY [facility] Stop: 07/24/20 08:59 Last Admin: 06/29/20 08:33 Dose: Not Given Documented by: Bumetanide (Bumetanide 1 Mg Tab) 1 mg PO QAM [facility] Stop: 07/28/20 08:59 Last Admin: 06/29/20 08:32 Dose: Not Given Documented by: Calcium Carbonate (Calcium Carbonate 500 Mg Chewable Tab) 500 mg PO TIDM [facility] Stop: 07/24/20 07:59 Last Admin: 06/29/20 11:29 Dose: Not Given Documented by: Clobetasol Propionate (Clobetasol Propionate 0.05% Oint 15 Gm Tube) 1 appln EXT DAILY [facility] Stop: 07/24/20 08:59 Last Admin: 06/29/20 09:03 Dose: 1 appln Documented by: Dextrose (Dextrose 50% 50 Ml Syringe) 25 - 50 ml IV UD PRN; Protocol PRN Reason: Hypoglycemia Protocol Stop: 07/23/20 19:44 Fluticasone Propionate (Fluticasone Propionate Na Spr 16 Gm Btl) 2 sprays NA DAILY [facility] Stop: 07/24/20 08:59 Last Admin: 06/29/20 08:32 Dose: Not Given Documented by: Fluticasone/Vilanterol (Fluticasone/Vilanterol 100/25mcg 14 Puffs/Inhaler) 1 puffs INH HS [facility] Stop: 07/23/20 20:59 Last Admin: 06/28/20 20:39 Dose: 1 puffs Documented by: Glucagon (Glucagon For Inj 1 Mg Vial) 1 mg IM UD PRN; Protocol PRN Reason: Hypoglycemia Protocol Stop: 07/23/20 19:44 Glucose (Glucose 40% Gel 15 Gm Tube) 15 - 30 gm PO UD PRN; Protocol PRN Reason: Hypoglycemia Protocol Stop: 07/23/20 19:44 Glucose (Glucose 10 Tabs/Tube) 4 - 8 tabs PO UD PRN; Protocol PRN Reason: Hypoglycemia Protocol Stop: 07/23/20 19:44 Heparin Sodium (Porcine) (Heparin Sod 5,000 Unit/0.5 Ml Vial) 5,000 units SQ Q12 [facility] Stop: 07/23/20 20:59 Last Admin: 06/29/20 09:02 Dose: 5,000 units Documented by: Hydrocortisone (Hydrocortisone 2.5% Cr 30 Gm Tube) 1 appln EXT BID PRN PRN Reason: Rash Stop: 07/23/20 19:13 Ceftriaxone Sodium 1,000 mg/ (Dextrose) 50 mls @ 100 mls/hr IV Q24H [facility] Stop: 06/29/20 18:29 Last Infusion: 10/04/20 19:34 Dose: Infused Documented by: Insulin Glargine (Insulin Glargine Solostar 100 Units/Ml 3 Ml Pen) 4 units SQ DAILY [facility] Stop: 07/24/20 08:59 Last Admin: 06/29/20 09:46 Dose: Not Given Documented by: Loratadine (Loratadine 10 Mg Tab) 10 mg PO DAILY [facility] Stop: 07/24/20 08:59 Last Admin: 06/29/20 08:32 Dose: Not Given Documented by: Lorazepam (Lorazepam 0.5 Mg Tab) 0.25 mg PO TID PRN PRN Reason: Anxiety Stop: 07/23/20 19:13 Metoclopramide HCl (Metoclopramide Hcl 5 Mg Tablet) 5 mg PO BIDM [facility] Stop: 07/24/20 07:59 Last Admin: 06/29/20 08:32 Dose: Not Given Documented by: Metoprolol Tartrate (Metoprolol Tartrate 25 Mg Tab) 12.5 mg PO DAILY [facility] Stop: 07/23/20 19:13 Last Admin: 06/29/20 08:32 Dose: Not Given Documented by: Miconazole Nitrate (Miconazole Nitrate Powder 43 Gm) 1 appln EXT PRN PRN PRN Reason: Affected Skin Folds Stop: 07/25/20 11:02 Last Admin: 06/28/20 11:57 Dose: 1 appln Documented by: Miscellaneous (Azelastine Order Awaiting Action) 1 ea N/A QS [facility] Stop: 07/24/20 00:00 Last Admin: 06/29/20 08:32 Dose: Not Given Documented by: Miscellaneous (Carbohydrates For Hypoglycemia ) 15 - 30 gm PO UD PRN PRN Reason: Hypoglycemia Treatment Stop: 07/23/20 19:44 Montelukast Sodium (Montelukast Sodium 10 Mg Tablet) 10 mg PO QPM [facility] Stop: 07/23/20 20:59 Last Admin: 06/28/20 20:43 Dose: Not Given Documented by: Multivitamins/Minerals (Cerovite Adv Formula Tab) 1 tab PO DAILY [facility] Stop: 07/24/20 08:59 Last Admin: 06/29/20 08:33 Dose: Not Given Documented by: Nystatin (Nystatin Cr 15 Gm Tube) 1 appln EXT BID [facility] Stop: 07/23/20 20:59 Last Admin: 06/29/20 08:33 Dose: Not Given Documented by: Ondansetron HCl (Ondansetron Inj 2 Mg/Ml 2 Ml Vial) 4 mg IV Q6H PRN PRN Reason: Nausea Stop: 07/28/20 16:21 Last Admin: 06/29/20 10:47 Dose: 4 mg Documented by: Pantoprazole Sodium (Pantoprazole 40 Mg Tab) 40 mg PO DAILY [facility] Stop: 07/24/20 08:59 Last Admin: 06/29/20 08:33 Dose: Not Given Documented by: Petrolatum (Butt Paste (Zinc Oxide 16%) 171 Appln/57 Gm Jar) 1 appln EXT TID [facility]; Protocol Stop: 07/23/20 20:59 Last Admin: 06/29/20 09:03 Dose: 1 appln Documented by: Senna/Docusate Sodium (Docusate Sodium/Senna 50/8.6mg Tab) 1 tab PO BID [facility] Stop: 07/23/20 20:59 Last Admin: 06/29/20 08:33 Dose: Not Given Documented by: (1) Urinary tract infection Hematuria presence: without hematuria Urinary tract infection type: site unspecified Qualified Code(s): N39.0 - Urinary tract infection, site not specified
[2020-06-29] MEDS ORDERED: BUMETANIDE 1 MG in SYRINGE 0 ML IV ONE (14:00)
[2020-06-29] MEDS: cefTRIAXone SODIUM 1,000 MG in DEXTROSE 5% 50 ML IV SCH (17:59)
[2020-06-29] MEDS: MONTELUKAST SODIUM 10 MG TABLET PO SCH (20:35)
[2020-06-29] MEDS: FLUTICASONE/VILANTEROL 100/25MCG 14 PUFFS/INHALER INH SCH (20:37)
[2020-06-30] MEDS: FLUTICASONE PROPIONATE NA SPR 16 GM BTL SCH (07:34)
[2020-06-30] MEDS: METOCLOPRAMIDE HCL 5 MG TABLET PO SCH ×2 (07:34→16:19)
[2020-06-30] MEDS: BUTT PASTE (ZINC OXIDE 16%) 171 APPLN/57 GM JAR EXT SCH ×3 (07:34→21:41)
[2020-06-30] MEDS: CALCIUM CARBONATE 500 MG CHEWABLE TAB PO SCH ×3 (07:34→16:19)
[2020-06-30] MEDS: LORATADINE 10 MG TAB PO SCH (07:34)
[2020-06-30] MEDS: BUMETANIDE 1 MG TAB PO SCH (07:34)
[2020-06-30] MEDS: METOPROLOL TARTRATE 25 MG TAB PO SCH (07:35)
[2020-06-30] MEDS: CEROVITE ADV FORMULA TAB PO SCH (07:35)
[2020-06-30] MEDS: CLOBETASOL PROPIONATE 0.05% OINT 15 GM TUBE EXT SCH (07:35)
[2020-06-30] MEDS: PANTOprazole 40 MG TAB PO SCH (07:35)
[2020-06-30] MEDS: amLODIPine BESYLATE 5 MG TAB PO SCH (07:35)
[2020-06-30] MEDS: DOCUSATE SODIUM/SENNA 50/8.6MG TAB PO SCH ×2 (07:35→21:41)
--- NOTE | 2020-06-30 08:18 | Gastroenterology Progress Note ---
Date of Service June 30, 2020 Assessment & Plan (1) Oropharyngeal dysphagia: Pt is a 89 y/o female followed for dysphagia and aspiration. She is noted to aspirate all forms of diet texture per Speech Therapist. She is scheduled for PEG placement today. She understands indication for this. - Keep NPO for PEG placement by Dr. Vegas. - GI will give further recs after PEG is placed Admission and Anticipated Discharge Date Admission Date: June 23, 2020 Supervising Physician Co-Signing Physician Notes I performed a history and physical examination of the patient today, including specifically on physical exam - soft abdomen. I have discussed the patient's management with the advanced practitioner. Please refer to the nurse practitioner's note for the documented findings and plan of care. Patient agreed for PEG tube placement. I have explained the risk, benefit and alternatives. Subjective Pt has been NPO for planned EGD w PEG placement today. Denies abd pain, n/v. + productive cough Review of Systems Review of Systems: All systems reviewed & are unremarkable except as noted in HPI & below Physical Exam Constitutional: WD/WN, vitals as above well groomed, cooperative and comfortable Eyes: PERRL, conjunctivae normal, anicteric sclerae ENMT: external ear and nose normal, oropharynx normal Respiratory: normal respiratory effort and + cough; no respiratory distress and does not use accessory muscles Auscultation: + diminished lung sounds (at bases) Cardiovascular: RRR, no murmur, no edema Gastrointestinal (Abdomen): normal bowel sounds, soft, nontender, no hepatosplenomegaly Skin: no rashes, warm and dry no jaundice Psychiatric: A+Ox3, euthymic affect Lymphatic: no lymphedema Results & Data ([facility]) Vital Signs (Past 12 Hours) Vital Signs Temp Pulse Pulse Resp BP Pulse Ox 06/30/20 07:32 36.5 C 73 18 148/70 H 99 06/30/20 03:09 36.5 C 69 16 104/54 L 98 06/30/20 00:01 76 06/29/20 23:46 36.5 C 76 16 92/55 L 99
--- NOTE | 2020-06-30 08:31 | Anesthesiology Consultation ---
Date of Service June 30, 2020 Assessment & Plan (1) Encounter for pre-operative examination: Chart Review Chart Review: Acceptable Risk for Surgery History Surgery Operation Date: 06/30/20 08:30 Proposed Procedures p EGD Gastric Tube Placement - Mera Vegas MD Height/Weight Height: 5 ft 4 in Weight: 78.5 kg Allergies Allergy/AdvReac Type Severity Reaction Status Date / Time clofibrate Allergy Severe SWELLING Verified 06/23/20 18:17 rabeprazole Allergy Intermediate SOB/COUGHING Verified 06/23/20 18:17 AND THROAT FELT TIGHT/ABD. CRAMPING fexofenadine Allergy Mild RASH Verified 06/23/20 18:17 Fibrate Anti-Lipidemics Allergy Mild SWELLING Verified 06/23/20 18:17 fluvastatin Allergy Mild HIVES Verified 06/23/20 18:17 metformin Allergy Mild URINARY Verified 06/23/20 18:17 FREQUENCY/RASH/ITCH morphine Allergy Mild ITCHY/HIVES Verified 06/23/20 18:17 moxifloxacin Allergy Mild ITCHY/NAUSE Verified 06/23/20 18:17 A Penicillins Allergy Mild HIVES Verified 06/25/20 13:30 Quinolones Allergy Mild RASH Verified 06/23/20 18:17 amoxicillin Allergy Unknown Unknown Verified 06/23/20 18:17 chlorpropamide Allergy Unknown UNKNOWN Verified 06/23/20 18:17 NSAIDS (Non-Steroidal Allergy Unknown UNKNOWN Verified 06/23/20 18:17 Anti-Inflamma ranitidine Allergy Unknown Unknown Verified 06/23/20 18:17 Sulfa (Sulfonamide Allergy Unknown UNKNOWN Verified 06/23/20 18:17 Antibiotics) blue dye AdvReac Mild MYALGIAS Verified 06/23/20 18:17 AND CRAMPS codeine AdvReac Mild FEELS Verified 06/23/20 18:17 "HIGH" ON/ITCHING dexlansoprazole AdvReac Mild MYALGIAS Verified 06/23/20 18:17 AND CRAMPS gemfibrozil AdvReac Mild ABDOMINAL Verified 06/23/20 18:17 CRAMPS AND DIZZINESS lisinopril AdvReac Mild COUGH Verified 06/23/20 18:17 lorazepam AdvReac Mild 0 Verified 06/23/20 18:17 rofecoxib AdvReac Mild INDIGESTION Verified 06/23/20 18:17 Medications Home Medications Medication Instructions Recorded Confirmed Last Taken losartan 25 mg tablet 25 mg PO DAILY tab 01/22/19 06/23/20 06/23/20 09:01 montelukast 10 mg tablet 10 mg PO DAILY 01/22/19 06/23/20 06/22/20 21:01 Yao Dior U-100 Insulin 4 unit SUBCUT DAILY 03/05/19 06/23/20 06/23/20 09:01 allopurinol 200 mg PO DAILY 03/05/19 06/23/20 06/23/20 09:01 fluticasone propionate [Flonase 2 spray INTRANASAL DAILY 03/05/19 06/23/20 06/23/20 09:01 Allergy Relief] loratadine 10 mg PO DAILY 03/05/19 06/23/20 06/23/20 09:01 sennosides-docusate sodium 2 tab PO BID 03/05/19 06/23/20 06/23/20 09:01 [Senna-S] metoprolol tartrate 25 mg PO QAM 06/23/19 06/23/20 06/23/20 09:01 Aroma Therapy See Rx Instructions .ROUTE .COMPLEX 06/23/20 06/23/20 06/23/20 11:31 acetaminophen 500 mg PO HS MDD 3000 MG APAP/24 06/23/20 06/23/20 06/22/20 21:01 HOURS acetaminophen 650 mg PO Q4H PRN MDD 3000 MG 06/23/20 06/23/20 Unknown APAP/24 HOURS alum-mag hydroxide-simeth [Antacid 30 ml PO ACHS 06/23/20 06/23/20 06/23/20 11:31 Anti-Gas] amlodipine 5 mg PO DAILY 06/23/20 06/23/20 06/23/20 09:01 aspirin 81 mg PO DAILY 06/23/20 06/23/20 06/23/20 09:01 azelastine 2 spray INTRANASAL AMHS 06/23/20 06/23/20 06/23/20 09:01 bumetanide 1 mg PO DAILY 06/23/20 06/23/20 06/23/20 09:01 fluticasone furoate-vilanterol 1 inh INHALATION DAILY 06/23/20 06/23/20 06/23/20 09:01 [Breo Ellipta] ipratropium-albuterol 3 ml INHALATION BID 06/23/20 06/23/20 06/23/20 09:01 ipratropium-albuterol 3 ml INHALATION Q4H PRN 06/23/20 06/23/20 06/21/20 iron,carbonyl-vitamin C [Vitron-C] 1 tab PO DAILY 06/23/20 06/23/20 06/23/20 09:01 isosorbide dinitrate 30 mg PO QAM 06/23/20 06/23/20 06/23/20 09:01 lanolin ceftpou-ay-z.pet-ceres 1 applic TOPICAL BID 06/23/20 06/23/20 06/23/20 [Eucerin] AM SHIFT mirtazapine 30 mg PO HS 06/23/20 06/23/20 06/22/20 21:01 omeprazole 40 mg PO QAM 06/23/20 06/23/20 06/23/20 07:01 ondansetron HCl [Zofran] 4 mg PO Q6H PRN 06/23/20 06/23/20 06/22/20 polyethylene glycol 3350 17 g PO DAILY 06/23/20 06/23/20 06/23/20 09:01 sodium chloride [Saline Nasal] 2 spray INTRANASAL DIRECTED 06/23/20 06/23/20 06/23/20 09:01 Active Medications Generic Name Dose Route Start Last Admin Trade Name Freq PRN Reason Stop Dose Admin Acetaminophen 650 mg 06/25/20 07:43 06/25/20 07:53 Acetaminophen 325 Mg Tab PO 07/25/20 07:42 650 mg Q4H PRN Administration Pain or Fever Albuterol 2 puffs 06/23/20 19:14 06/29/20 09:23 Albuterol Hfa 8 Gm Inhaler INH 07/23/20 19:13 2 puffs Q4H PRN Administration wheezing Amlodipine Besylate 10 mg 06/24/20 09:00 06/30/20 07:35 Amlodipine Besylate 5 Mg Tab PO 07/24/20 08:59 Not Given DAILY BRANDON Bumetanide 1 mg 06/28/20 09:00 06/30/20 07:34 Bumetanide 1 Mg Tab PO 07/28/20 08:59 Not Given QAM BRANDON Calcium Carbonate 500 mg 06/24/20 08:00 06/30/20 07:34 Calcium Carbonate 500 Mg Chewable Tab PO 07/24/20 07:59 Not Given TIDM BRANDON Clobetasol Propionate 1 appln 06/24/20 09:00 06/30/20 07:35 Clobetasol Propionate 0.05% Oint 15 Gm Tube EXT 07/24/20 08:59 Not Given DAILY BRANDON Dextrose 25 - 50 ml 06/23/20 19:45 06/29/20 21:42 Dextrose 50% 50 Ml Syringe IV 07/23/20 19:44 25 ml UD PRN Administration Hypoglycemia Protocol Protocol Fluticasone Propionate 2 sprays 06/24/20 09:00 06/30/20 07:34 Fluticasone Propionate Na Spr 16 Gm Btl NA 07/24/20 08:59 Not Given DAILY BRANDON Fluticasone/Vilanterol 1 puffs 06/23/20 21:00 06/29/20 20:37 Fluticasone/Vilanterol 100/25mcg 14 Puffs/Inhaler INH 07/23/20 20:59 1 puff s HS BRANDON Administration Heparin Sodium (Porcine) 5,000 units 06/23/20 21:00 06/29/20 20:37 Heparin Sod 5,000 Unit/0.5 Ml Vial SQ 07/23/20 20:59 5,000 units Q12 BRANDON Administration Insulin Glargine 4 units 06/24/20 09:00 06/29/20 09:46 Insulin Glargine Solostar 100 Units/Ml 3 Ml Pen SQ 07/24/20 08:59 Not Given DAILY BRANDON Loratadine 10 mg 06/24/20 09:00 06/30/20 07:34 Loratadine 10 Mg Tab PO 07/24/20 08:59 Not Given DAILY BRANDON Metoclopramide HCl 5 mg 06/24/20 08:00 06/30/20 07:34 Metoclopramide Hcl 5 Mg Tablet PO 07/24/20 07:59 Not Given BIDM BRANDON Metoprolol Tartrate 12.5 mg 06/23/20 19:14 06/30/20 07:35 Metoprolol Tartrate 25 Mg Tab PO 07/23/20 19:13 Not Given DAILY [facility] Miconazole Nitrate 1 appln 06/25/20 11:03 06/28/20 11:57 Miconazole Nitrate Powder 43 Gm EXT 07/25/20 11:02 1 appln PRN PRN Administration Affected Skin Folds Miscellaneous 1 ea 06/24/20 00:00 06/30/20 07:34 Azelastine Order Awaiting Action N/A 07/24/20 00:00 Not Given QS BRANDON Montelukast Sodium 10 mg 06/23/20 21:00 06/29/20 20:35 Montelukast Sodium 10 Mg Tablet PO 07/23/20 20:59 Not Given QPM BRANDON Multivitamins/Minerals 1 tab 06/24/20 09:00 06/30/20 07:35 Cerovite Adv Formula Tab PO 07/24/20 08:59 Not Given DAILY BRANDON Nystatin 1 appln 06/23/20 21:00 06/29/20 20:37 Nystatin Cr 15 Gm Tube EXT 07/23/20 20:59 1 appln BID BRANDON Administration Ondansetron HCl 4 mg 06/28/20 16:22 06/29/20 17:03 Ondansetron Inj 2 Mg/Ml 2 Ml Vial IV 07/28/20 16:21 4 mg Q6H PRN Administration Nausea Pantoprazole Sodium 40 mg 06/24/20 09:00 06/30/20 07:35 Pantoprazole 40 Mg Tab PO 07/24/20 08:59 Not Given DAILY BRANDON Petrolatum 1 appln 06/23/20 21:00 06/30/20 07:34 Butt Paste (Zinc Oxide 16%) 171 Appln/57 Gm Jar EXT 07/23/20 20:59 Not Given TID [facility] Protocol Senna/Docusate Sodium 1 tab 06/23/20 21:00 06/30/20 07:35 Docusate Sodium/Senna 50/8.6mg Tab PO 07/23/20 20:59 Not Given BID BRANDON NPO Date Last Intake of Fluids: 06/29/20 Time Last Intake of Fluids: 21:00 Last Intake of Fluids Comment: Swabbed Mouth Date Last Intake of Solids: 06/29/20 Past Medical History Medical History (Updated 06/30/20 @ 08:31 by Dionisio Joy MD) Anemia Asthma CAD (coronary atherosclerotic disease) CKD (chronic kidney disease) stage 4, GFR 15-29 ml/min Diabetes GERD (gastroesophageal reflux disease) HTN, goal to be determined Hyperparathyroidism Obesity Oropharyngeal dysphagia PVD (peripheral vascular disease) Past Family History Family History Other No pertinent family history in first degree relatives Past Surgical History Surgical History H/O right coronary artery stent placement S/P abdominal hysterectomy S/P cholecystectomy Social History Smoking Status: Unknown if ever smoked Hx Alcohol Use: No Hx Substance Use: No substance use type: does not use Physical Exam Vital Signs Last Vital Signs Temp 36.5 C 06/30/20 07:32 Pulse 73 06/30/20 07:32 Resp 18 06/30/20 07:32 BP 148/70 H 06/30/20 07:32 Pulse Ox 99 06/30/20 07:32 Testing Laboratory Results 06/26/20 06:00 06/28/20 07:01 PT 10.9 Seconds (9.0-12.0) 06/23/20 15:56 INR 1.0 (0.9-1.1) 06/23/20 15:56 APTT 25.4 Seconds (21.0-31.0) 06/23/20 15:56 Urine Color Dark Yellow 06/23/20 14:06 Urine Appearance Cloudy (Clear) A 06/23/20 14:06 Urine pH 6.0 (4.5-7.5) 06/23/20 14:06 Ur Specific [place] 1.014 (1.000-1.030) 06/23/20 14:06 Urine Protein 1+ (Negative) H 06/23/20 14:06 Urine Glucose (UA) Negative (Negative) 06/23/20 14:06 Urine Ketones Trace (Negative) H 06/23/20 14:06 Urine Nitrite Negative (Negative) 06/23/20 14:06 Ur Leukocyte Esterase 3+ (Negative) H 06/23/20 14:06 Urine WBC (Auto) >30 /hpf (0-5) H 06/23/20 14:06 Urine RBC (Auto) 0-4 /hpf (0-4) 06/23/20 14:06 U Hyaline Cast (Auto) 1-5 /lpf (0-5) 06/23/20 14:06 U Epithel Cells (Auto) 0-5 /lpf (0-5) 06/23/20 14:06 Urine Bacteria (Auto) 4+ (Negative) H 06/23/20 14:06 06/23/20 15:10 Aerobic Blood Culture - Final Blood No growth in Aerobic bottle after 5 days. Anaerobic Blood Culture - Final 06/23/20 14:15 Aerobic Blood Culture - Final Blood No growth in Aerobic bottle after 5 days. Anaerobic Blood Culture - Final No growth in Anaerobic bottle after 5 days. 06/23/20 14:06 Urine Culture - Final Urine,Clean Catch Escherichia coli Proteus mirabilis 06/30/20 06/30/20 06/29/20 07:46 02:13 22:01 POC Glucose 87 91 120 H Electrocardiogram Date: 06/23/20 Findings: + AFIB @ (96) Chest X-Ray Date: 06/23/20 nonspecific right basilar opacities Echocardiogram Date: 03/05/19 EF: 55% LV Function: normal Valvular Disease: + no significant valvular disease
[2020-06-30] MEDS ORDERED: ceFAZolin 2000MG 2,000 MG/15 ML SYR IV ONE (08:33)
[2020-06-30] MEDS: INSULIN GLARGINE SOLOSTAR 100 UNITS/ML 3 ML PEN SQ SCH (08:47)
--- NOTE | 2020-06-30 09:26 | GI REPORT ---
Patient Name: Traci Christensen Procedure Date: 06/30/2020 8:43 AM Date of : 1930 Admit Type: Inpatient Age: 89 Gender: Female Attending MD: Mera Vegas MD Procedure: Upper GI endoscopy Providers: Mera Vegas MD Referring MD: Jamal Salas Indications: Place PEG due to dysphagia, impaired swallowing, aspiration risk Medicines: Propofol per Anesthesia, Ancef 2000 mg IV Complications: No immediate complications. Estimated Blood Loss: Estimated blood loss: none. Procedure: Pre-Anesthesia Assessment: - Prior to the procedure, a History and Physical was performed, and patient medications, allergies and sensitivities were reviewed. The patient's tolerance of previous anesthesia was reviewed. - The risks and benefits of the procedure and the sedation options and risks were discussed with the patient. All questions were answered and informed consent was obtained. - Patient identification and proposed procedure were verified prior to the procedure by the physician and the nurse. The procedure was verified in the procedure room. - Pre-procedure physical examination revealed no contraindications to sedation. After obtaining informed consent, the endoscope was passed under direct vision. Throughout the procedure, the patient's blood pressure, pulse, and oxygen saturations were monitored continuously. The Endoscope was introduced through the mouth, and advanced to the second part of duodenum. The upper GI endoscopy was accomplished without difficulty. The patient tolerated the procedure well. Findings: The examined esophagus was normal. The entire examined stomach was normal. The patient was placed in the supine position for PEG placement. The stomach was insufflated to appose gastric and abdominal harman. A site was located in the body of the stomach with excellent transillumination and manual external pressure for placement. The abdominal wall was marked and prepped in a sterile manner. The area was anesthetized with 2 mL of 1% lidocaine. The trocar needle was introduced through the abdominal wall and into the stomach under direct endoscopic view. A snare was introduced through the endoscope and opened in the gastric lumen. The guide wire was passed through the trocar and into the open snare. The snare was closed around the guide wire. The endoscope and snare were removed, pulling the wire out through the mouth. A skin incision was made at the site of needle insertion. The externally removable 20 Fr Tavares-Cook gastrostomy tube was lubricated. The G-tube was tied to the guide wire and pulled through the mouth and into the stomach. The trocar needle was removed, and the gastrostomy tube was pulled out from the stomach through the skin. The external bumper was attached to the gastrostomy tube, and the tube was cut to remove the guide wire. The final position of the gastrostomy tube was confirmed by relook endoscopy, and skin marking noted to be 2 cm at the external bumper. The final tension and compression of the abdominal wall by the PEG tube and external bumper were checked and revealed that the bumper was moderately tight and mildly deforming the skin. The feeding tube was capped, and the tube site cleaned and dressed. The duodenal bulb and second portion of the duodenum were normal. Impression: - Normal esophagus. - Normal stomach. - Normal duodenal bulb and second portion of the duodenum. - An externally removable PEG placement was successfully completed. - No specimens collected. Recommendation: - Return patient to [facility] for [facility] care. - Please follow the post-PEG recommendations including: Nutrition consult for formula and volume, dry dressing only, NPO x4 hrs then water today and may use PEG tomorrow for feedings. Mera Vegas MD 06/30/2020 9:26:02 AM This report has been signed electronically. Note Initiated On: 06/30/2020 8:43 AM Number of Addenda: 0 I attest to the content of the Intraoperative Record and orders documented therein, exceptions below {[id number]}
[2020-06-30] MEDS ORDERED: PROPOFOL IV EMULSION 10 MG/ML 20 ML VIAL IV ONE (09:38)
[2020-06-30] MEDS ORDERED: LIDOCAINE HCL 2% 2 ML VIAL/AMP(20MG/ML) INFIL ONE (09:38)
--- NOTE | 2020-06-30 09:53 | Anesthesiology Progress Note ---
Date of Service June 30, 2020 Anesthesia Post Procedure Vital Signs Vital Signs: Temp Pulse Pulse Pulse Resp BP Pulse Ox 06/30/20 09:38 73 18 144/68 H 98 06/30/20 09:23 86 18 127/74 100 06/30/20 08:32 36.2 C L 82 18 155/80 H 100 06/30/20 07:32 36.5 C 73 18 148/70 H 99 06/30/20 03:09 36.5 C 69 16 104/54 L 98 06/30/20 00:01 76 06/29/20 23:46 36.5 C 76 16 92/55 L 99 06/29/20 19:47 36.4 C L 76 16 96/53 L 97 06/29/20 14:57 36.4 C L 72 18 122/71 100 06/29/20 14:19 69 06/29/20 11:41 36.5 C 78 78 18 120/69 91 Pain Intensity Buttock: Pain Intensity: 0 Abdomen: Pain Intensity: 3 Transfer of Care Handoff Completed per policy Notes Mental Status: alert / awake / arousable Patient Amnestic to Procedure: Yes Nausea / Vomiting: adequately controlled Pain: adequately controlled Airway Patency, RR, SpO2: stable & adequate BP & HR: stable & adequate Hydration State: stable & adequate Anesthetic Complications: no major complications apparent
[2020-06-30] MEDS: MICONAZOLE NITRATE POWDER 43 GM EXT PRN (10:27)
[2020-06-30] MEDS: ONDANSETRON INJ 2 MG/ML 2 ML VIAL IV PRN (10:27)
[2020-06-30] MEDS: NYSTATIN CR 15 GM TUBE EXT SCH ×2 (10:50→21:41)
[2020-06-30] MEDS ORDERED: PROMETHAZINE HCL 12.5 MG in SODIUM CHLORIDE 0.9% 50 ML IV PRN (13:49)
--- NOTE | 2020-06-30 16:05 | Hospitalist Progress Note ---
Date of Service June 30, 2020 Assessment & Plan (1) Esophageal dysmotility: Under care of [facility] GI Will ask for speech therapy evaluation Failed bedside swallowing evaluation and did not go for barium swallow due to risk of aspiration CT scan of the abdomen pelvis is unremarkable [facility] consulted for possible EGD and dilatation with history of esophageal dilatation in the past Has had esophageal dilation in the past without any improvement on swallowing Her swallowing is seems to be cricopharyngeal and likely not to get any better with esophageal dilatation as per GI Plan to have reevaluation by speech since the patient is getting better from infection The problem of swallowing and aspiration persist, the next option would be PEG tube placement if everyone agrees on that Ongoing dysphagia Seems to be secondary to upper esophageal/pharyngeal issue Dysphagia did not improve with prior esophageal dilatation Plan to get a reevaluation from speech therapy today If dysphagia persist with significant aspiration then the patient will need to have PEG tube placement for feeding Discussed with the patient and she is agreeable to have a PEG tube Discussed with the family members especially the son and the the patient herself and the son wanted to have the PEG tube placement Status post PEG tube placement on 06/30/2020 Nutrition consult for PEG tube feeding, will be started from tomorrow To be discharged tomorrow (2) Urinary tract infection: Presented with anorexia and nausea with vomiting Noted to have high white count of 17,000 with urine examination suggestive of infection Did not have any fever at presentation and tachycardia did not persist. Doubt any sepsis Urine has been sent for culture and blood has been sent for culture to Started with intravenous ceftriaxone Covid-Negative Ceftriaxone has been discontinued Ertapenem has been discontinued and ceftriaxone has been restarted Denies any symptoms Will DC ceftriaxone Possible aspiration pneumonia Has history of esophageal dysmotility and as below Antibiotic has been changed to intravenous ertapenem Clinically a lot better and no evidence of lobar consolidation Will de-escalate antibiotic to intravenous ceftriaxone for now Advised to concentrate while swallowing to prevent aspiration No more cough and/or shortness of breath Sacral decubiti ulcer stage III Dry and does not look like acutely infected Continue with wound care (3) Acute kidney injury superimposed on chronic kidney disease: Has history of chronic kidney disease stage IV Has acute on chronic kidney disease secondary to dehydration and use of diuretics and lisinopril Will hold diuretics and lisinopril for now Start adequate amount of intravenous fluid Creatinine has been improving We will advise increase fluid intake orally Seems to be having fluid overload-we will restrict oral intake to 1200 mL a day Has been receiving very small amount of Lasix (4) (HFpEF) heart failure with preserved ejection fraction: Has history of atrial fibrillation and heart failure with preserved EF No signs of fluid overload Will give cautious amount of intravenous fluid for acute dehydration Hold lisinopril and furosemide for now Events of fluid overload Mild elevation of troponin Acute secondary to acute on chronic kidney disease EKG shows atrial fibrillation with right axis deviation, inferior infarct age undetermined lateral T wave inversion Doubt any ACS will repeat second set of troponin Second set of troponin improved Troponin elevation is secondary to acute on chronic kidney disease No ACS of any kind (5) Type 2 diabetes mellitus: Continue current medications Her on SSI (6) Asthma, moderate: No acute symptoms (7) Chronic a-fib: Chronic atrial fibrillation Rate is controlled now As per the epic note she has not been on any Coumadin DVT prophylaxis Heparin SQ CODE STATUS Full Discussed with the son in detailed Likely discharge tomorrow Admission and Anticipated Discharge Date Admission Date: June 23, 2020 Subjective 06/24/20 Patient was seen and examined in medical telemetry unit She has had episodes of shortness of breath with coughing last night and the x- ray did show right lower lobe infiltration likely secondary to aspiration Has been doing much better this morning Denies any significant symptoms 06/25/2020 The patient was seen and examined in medical telemetry unit She complains today of some shortness of breath but does not look to be short of breath She failed bedside swallowing test and the did not go for barium swallow due to high risk of aspiration 06/26/2020 The patient was seen and examined in detail telemetry unit in presence of the son She has been doing much better today Still has a problem of aspiration while eating 06/27/2020 The patient was seen and examined in medical telemetry unit She complains today of shortness of breath at rest denies any other symptoms Continues to have aspiration while eating 06/28/2020 The patient was seen and examined in medical telemetry unit She has been stable and feeling lot better Denies any shortness of breath today but he still complains to a problem with swallowing 06/29/2020 The patient was seen and examined in medical telemetry unit She has been complaining of dysphagia which has been ongoing for a long time and that did not improve even with esophageal dilatation in the past She will have a reevaluation of her swallowing by the speech therapist today Denies any other significant symptoms 06/30/2020 The patient was seen and examined in medical telemetry unit She is a status post PEG tube placement Complains some epigastric discomfort and nausea but denies any other symptoms Review of Systems Review of Systems: All systems reviewed and are unremarkable except as noted below Respiratory: + cough; no dyspnea Physical Exam Physical Exam: Lying in bed comfortably Constitutional: + thin; no acute distress and not ill appearing Eyes: PERRL, conjunctivae normal, anicteric sclerae ENMT: external ear and nose normal, oropharynx normal Neck: trachea midline, no thyromegaly Respiratory: normal respiratory effort; no respiratory distress Auscultation: + diminished lung sounds and + crackles (Bilateral at the bases) Cardiovascular: Rate/Rhythm: + abnormal rate and + abnormal rhythm Heart Sounds: + murmur (2/6 ESM over precordium) Gastrointestinal (Abdomen): Inspection/Auscultation: abdomen normal to inspection and normal bowel sounds; abdomen not distended Percussion/Palpation: + abdomen tender (Epigastrium) and abdomen soft Status post PEG tube placement Musculoskeletal: No acute arthritis in any joints Neurologic: moves all extremities; no focal motor deficits Alert awake and oriented x3, Psychiatric: A+Ox3, euthymic affect Lymphatic: no cervical or axillary lymphadenopathy Results & Data Results & Data ([facility]) Vital Signs (Past 12 Hours) Vital Signs Temp Pulse Resp BP BP Pulse Ox 06/30/20 15:02 36.3 C L 70 16 145/78 H 100 06/30/20 11:11 37.0 C 82 18 135/79 100 06/30/20 10:30 37.0 C 86 158/67 H 94 06/30/20 09:53 87 18 163/76 H 100 06/30/20 09:38 73 18 144/68 H 98 06/30/20 09:23 86 18 127/74 100 06/30/20 08:32 36.2 C L 82 18 155/80 H 100 06/30/20 07:32 36.5 C 73 18 148/70 H 99 Medications Administered Current Inpatient Medications Acetaminophen (Acetaminophen 325 Mg Tab) 650 mg PO Q4H PRN PRN Reason: Pain or Fever Stop: 07/25/20 07:42 Last Admin: 06/25/20 07:53 Dose: 650 mg Documented by: Albuterol (Albuterol Hfa 8 Gm Inhaler) 2 puffs INH Q4H PRN PRN Reason: wheezing Stop: 07/23/20 19:13 Last Admin: 06/29/20 09:23 Dose: 2 puffs Documented by: Amlodipine Besylate (Amlodipine Besylate 5 Mg Tab) 10 mg PO DAILY BRANDON Stop: 07/24/20 08:59 Last Admin: 06/30/20 07:35 Dose: Not Given Documented by: Bumetanide (Bumetanide 1 Mg Tab) 1 mg PO QAM BRANDON Stop: 07/28/20 08:59 Last Admin: 06/30/20 07:34 Dose: Not Given Documented by: Calcium Carbonate (Calcium Carbonate 500 Mg Chewable Tab) 500 mg PO TIDM BRANDON Stop: 07/24/20 07:59 Last Admin: 06/30/20 12:13 Dose: Not Given Documented by: Clobetasol Propionate (Clobetasol Propionate 0.05% Oint 15 Gm Tube) 1 appln EXT DAILY BRANDON Stop: 07/24/20 08:59 Last Admin: 06/30/20 07:35 Dose: Not Given Documented by: Dextrose (Dextrose 50% 50 Ml Syringe) 25 - 50 ml IV UD PRN; Protocol PRN Reason: Hypoglycemia Protocol Stop: 07/23/20 19:44 Last Admin: 06/29/20 21:42 Dose: 25 ml Documented by: Fluticasone Propionate (Fluticasone Propionate Na Spr 16 Gm Btl) 2 sprays NA DAILY BRANDON Stop: 07/24/20 08:59 Last Admin: 06/30/20 07:34 Dose: Not Given Documented by: Fluticasone/Vilanterol (Fluticasone/Vilanterol 100/25mcg 14 Puffs/Inhaler) 1 puffs INH HS BRANDON Stop: 07/23/20 20:59 Last Admin: 06/29/20 20:37 Dose: 1 puffs Documented by: Glucagon (Glucagon For Inj 1 Mg Vial) 1 mg IM UD PRN; Protocol PRN Reason: Hypoglycemia Protocol Stop: 07/23/20 19:44 Glucose (Glucose 40% Gel 15 Gm Tube) 15 - 30 gm PO UD PRN; Protocol PRN Reason: Hypoglycemia Protocol Stop: 07/23/20 19:44 Glucose (Glucose 10 Tabs/Tube) 4 - 8 tabs PO UD PRN; Protocol PRN Reason: Hypoglycemia Protocol Stop: 07/23/20 19:44 Heparin Sodium (Porcine) (Heparin Sod 5,000 Unit/0.5 Ml Vial) 5,000 units SQ Q12 BRANDON Stop: 07/23/20 20:59 Last Admin: 06/29/20 20:37 Dose: 5,000 units Documented by: Hydrocortisone (Hydrocortisone 2.5% Cr 30 Gm Tube) 1 appln EXT BID PRN PRN Reason: Rash Stop: 07/23/20 19:13 Promethazine HCl 12.5 mg/ (Sodium Chloride) 50.5 mls @ 202 mls/hr IV Q6H PRN PRN Reason: Nausea And Vomiting Stop: 07/30/20 13:48 Insulin Glargine (Insulin Glargine Solostar 100 Units/Ml 3 Ml Pen) 4 units SQ DAILY [facility] Stop: 07/24/20 08:59 Last Admin: 06/30/20 08:47 Dose: Not Given Documented by: Loratadine (Loratadine 10 Mg Tab) 10 mg PO DAILY BRANDON Stop: 07/24/20 08:59 Last Admin: 06/30/20 07:34 Dose: Not Given Documented by: Lorazepam (Lorazepam 0.5 Mg Tab) 0.25 mg PO TID PRN PRN Reason: Anxiety Stop: 07/23/20 19:13 Metoclopramide HCl (Metoclopramide Hcl 5 Mg Tablet) 5 mg PO BIDM [facility] Stop: 07/24/20 07:59 Last Admin: 06/30/20 07:34 Dose: Not Given Documented by: Metoprolol Tartrate (Metoprolol Tartrate 25 Mg Tab) 12.5 mg PO DAILY [facility] Stop: 07/23/20 19:13 Last Admin: 06/30/20 07:35 Dose: Not Given Documented by: Miconazole Nitrate (Miconazole Nitrate Powder 43 Gm) 1 appln EXT PRN PRN PRN Reason: Affected Skin Folds Stop: 07/25/20 11:02 Last Admin: 06/30/20 10:27 Dose: 1 appln Documented by: Miscellaneous (Azelastine Order Awaiting Action) 1 ea N/A QS BRANDON Stop: 07/24/20 00:00 Last Admin: 06/30/20 15:09 Dose: Not Given Documented by: Miscellaneous (Carbohydrates For Hypoglycemia ) 15 - 30 gm PO UD PRN PRN Reason: Hypoglycemia Treatment Stop: 07/23/20 19:44 Montelukast Sodium (Montelukast Sodium 10 Mg Tablet) 10 mg PO QPM [facility] Stop: 07/23/20 20:59 Last Admin: 06/29/20 20:35 Dose: Not Given Documented by: Multivitamins/Minerals (Cerovite Adv Formula Tab) 1 tab PO DAILY [facility] Stop: 07/24/20 08:59 Last Admin: 06/30/20 07:35 Dose: Not Given Documented by: Nystatin (Nystatin Cr 15 Gm Tube) 1 appln EXT BID [facility] Stop: 07/23/20 20:59 Last Admin: 06/30/20 10:50 Dose: Not Given Documented by: Ondansetron HCl (Ondansetron Inj 2 Mg/Ml 2 Ml Vial) 4 mg IV Q6H PRN PRN Reason: Nausea Stop: 07/28/20 16:21 Last Admin: 06/30/20 10:27 Dose: 4 mg Documented by: Pantoprazole Sodium (Pantoprazole 40 Mg Tab) 40 mg PO DAILY [facility] Stop: 07/24/20 08:59 Last Admin: 06/30/20 07:35 Dose: Not Given Documented by: Petrolatum (Butt Paste (Zinc Oxide 16%) 171 Appln/57 Gm Jar) 1 appln EXT TID [facility]; Protocol Stop: 07/23/20 20:59 Last Admin: 06/30/20 13:43 Dose: Not Given Documented by: Senna/Docusate Sodium (Docusate Sodium/Senna 50/8.6mg Tab) 1 tab PO BID [facility] Stop: 07/23/20 20:59 Last Admin: 06/30/20 07:35 Dose: Not Given Documented by: (1) Urinary tract infection Hematuria presence: without hematuria Urinary tract infection type: site unspecified Qualified Code(s): N39.0 - Urinary tract infection, site not specified
[2020-06-30] MEDS: FLUTICASONE/VILANTEROL 100/25MCG 14 PUFFS/INHALER INH SCH (21:40)
[2020-06-30] MEDS: MONTELUKAST SODIUM 10 MG TABLET PO SCH (21:42)
[2020-07-01 07:12] LABS: Mean Corpuscular Hgb Conc 32.2 g/dL (32-36)
[2020-07-01 07:46] LABS: Eosinophils # (auto) 0.09 K/uL (0-0.5); Eosinophils % (auto) 1.9 %; Hematocrit (blood only) 36.7 % (37-47); Hemoglobin 11.8 g/dL (12.0-16.0); Immature Granulocytes # (auto) 0.03 K/uL (0.00-0.02); Immature Granulocytes % (auto) 0.6 %; Lymphocytes # (auto) 0.82 K/uL (1.2-3.4); Lymphocytes % (auto) 17.2 %; Mean Corpuscular Hemoglobin 31.5 pg (25-34); Mean Corpuscular Volume 97.9 fL (80-100); Monocytes # (auto) 0.36 K/uL (0.11-0.59); Monocytes % (auto) 7.6 %; Neutrophils # (auto) 3.46 K/uL (1.4-6.5); Neutrophils % (auto) 72.7 %; Platelet Count 93 K/uL (130-400); Platelet Estimate Decreased (Normal); RDW Coefficient of Variation 16.5 % (11.5-14.5); RDW Standard Deviation 58.9 fL (36.4-46.3); Red Blood Count 3.75 M/uL (4.2-5.4); White Blood Count 4.76 K/uL (4.8-10.8)
[2020-07-01 07:55] LABS: Calcium 9.1 mg/dl (8.5-10.1); Est GFR (African American) 48.3; Est GFR (Non-African American) 41.7; Magnesium 2.1 mg/dl (1.8-2.4); Phosphorus 2.6 mg/dl (2.5-4.9); Potassium 4.6 mmol/L (3.5-5.1)
[2020-07-01] MEDS: BUMETANIDE 1 MG TAB PO SCH (09:36)
[2020-07-01] MEDS: LORATADINE 10 MG TAB PO SCH (09:36)
[2020-07-01] MEDS: BUTT PASTE (ZINC OXIDE 16%) 171 APPLN/57 GM JAR EXT SCH ×3 (09:36→20:21)
[2020-07-01] MEDS: MICONAZOLE NITRATE POWDER 43 GM EXT PRN (09:36)
[2020-07-01] MEDS: METOPROLOL TARTRATE 25 MG TAB PO SCH (09:37)
[2020-07-01] MEDS: PANTOprazole 40 MG TAB PO SCH (09:39)
[2020-07-01] MEDS: METOCLOPRAMIDE HCL 5 MG TABLET PO SCH ×2 (09:39→16:58)
[2020-07-01] MEDS: amLODIPine BESYLATE 5 MG TAB PO SCH (09:40)
[2020-07-01] MEDS: CEROVITE ADV FORMULA TAB PO SCH (09:40)
[2020-07-01] MEDS: DOCUSATE SODIUM/SENNA 50/8.6MG TAB PO SCH ×2 (09:40→20:18)
[2020-07-01] MEDS: FLUTICASONE PROPIONATE NA SPR 16 GM BTL SCH (09:41)
[2020-07-01] MEDS: CLOBETASOL PROPIONATE 0.05% OINT 15 GM TUBE EXT SCH (09:42)
[2020-07-01] MEDS: CALCIUM CARBONATE 500 MG CHEWABLE TAB PO SCH ×3 (09:44→16:58)
[2020-07-01] MEDS: NYSTATIN CR 15 GM TUBE EXT SCH ×2 (09:48→20:22)
--- NOTE | 2020-07-01 10:00 | Communication Note ---
Date of Service: July 01, 2020 GI note: Pt s/p PEG placement by Dr. Vegas yesterday. PEG checked this AM, bumper to 2cm secured w twist tie. No redness, bleeding, discharge noted. OK to use PEG for feeding and med administration today, routine flushes of PEG with water per PEG protocol
--- NOTE | 2020-07-01 11:38 | Hospitalist Progress Note ---
Date of Service July 01, 2020 Assessment & Plan (1) Esophageal dysmotility: Under care of [facility] Speech therapy evaluation obtained Failed bedside swallowing evaluation and did not go for barium swallow due to risk of aspiration CT scan of the abdomen pelvis is unremarkable [facility] consulted for possible EGD and dilatation with history of esophageal dilatation in the past Has had esophageal dilation in the past without any improvement on swallowing Her swallowing is seems to be cricopharyngeal and likely not to get any better with esophageal dilatation as per GI Plan to have reevaluation by speech since the patient is getting better from infection The problem of swallowing and aspiration persist, the next option would be PEG tube placement if everyone agrees on that Ongoing dysphagia Seems to be secondary to upper esophageal/pharyngeal issue Dysphagia did not improve with prior esophageal dilatation Plan to get a reevaluation from speech therapy today If dysphagia persist with significant aspiration then the patient will need to have PEG tube placement for feeding Discussed with the patient and she is agreeable to have a PEG tube Discussed with the family members especially the son and the the patient herself and the son wanted to have the PEG tube placement Status post PEG tube placement on 06/30/2020 Nutrition consult for PEG tube feeding, will be started from tomorrow To be discharged tomorrow (2) Urinary tract infection: Presented with anorexia and nausea with vomiting Noted to have high white count of 17,000 with urine examination suggestive of infection Did not have any fever at presentation and tachycardia did not persist. Doubt any sepsis Urine has been sent for culture and blood has been sent for culture to Started with intravenous ceftriaxone Covid-Negative Ceftriaxone has been discontinued Ertapenem has been discontinued and ceftriaxone has been restarted Denies any symptoms Will DC ceftriaxone Possible aspiration pneumonia Has history of esophageal dysmotility and as below Antibiotic has been changed to intravenous ertapenem Clinically a lot better and no evidence of lobar consolidation De-escalate antibiotic to intravenous ceftriaxone for now No more cough and/or shortness of breath Sacral decubiti ulcer stage III Dry and does not look like acutely infected, on admission Continue with wound care (3) Acute kidney injury superimposed on chronic kidney disease: Has history of chronic kidney disease stage IV Has acute on chronic kidney disease secondary to dehydration and use of diuretics and lisinopril Will hold diuretics and lisinopril for now Received adequate amount of intravenous fluid Creatinine has been improving Had episode of mild fluid overload-we will restrict oral intake to 1200 mL a day Has been receiving very small amount of diuretics (4) (HFpEF) heart failure with preserved ejection fraction: Has history of atrial fibrillation and heart failure with preserved EF No signs of fluid overload Will give cautious amount of intravenous fluid for acute dehydration Hold lisinopril and furosemide for now Events of fluid overload Mild elevation of troponin Acute secondary to acute on chronic kidney disease EKG shows atrial fibrillation with right axis deviation, inferior infarct age undetermined lateral T wave inversion Doubt any ACS will repeated troponin, Second set of troponin improved Troponin elevation is secondary to acute on chronic kidney disease No ACS of any kind (5) Type 2 diabetes mellitus: Continue current medications Her on SSI (6) Asthma, moderate: No acute symptoms (7) Chronic a-fib: Chronic atrial fibrillation Rate is controlled now As per the epic note she has not been on any Coumadin DVT prophylaxis Heparin SQ CODE STATUS Full Discussed with the son Likely discharge tomorrow Admission and Anticipated Discharge Date Admission Date: June 23, 2020 Subjective Patient is lying in bed, in no acute distress, tube feeds have been started, so far patient has been tolerating well. No fevers, chills, chest pain, shortness of breath. Some mild epigastric discomfort. No vomiting or nausea. Review of Systems Review of Systems: All systems reviewed & are unremarkable except as noted in HPI & below Constitutional: no fever and no chills Respiratory: no dyspnea Cardiovascular: no chest pain Gastrointestinal: no abdominal pain, no nausea and no vomiting Physical Exam Physical Exam: Physical Exam: Elderly female,lying in bed comfortably, ongoing tube feeds started Constitutional: + thin; no acute distress and not ill appearing Eyes: PERRL, EOMI, conjunctivae normal, anicteric sclerae ENMT: external ear and nose normal, oropharynx normal Neck: trachea midline, no thyromegaly Respiratory: normal respiratory effort; no respiratory distress Auscultation: + diminished lung sounds and + mild crackles (Bilateral at the bases) Cardiovascular: Rate/Rhythm: + abnormal rate and + abnormal rhythm Heart Sounds: + murmur (2/6 ESM over precordium) Gastrointestinal (Abdomen): Inspection/Auscultation: abdomen normal to inspection and normal bowel sounds; abdomen not distended Percussion/Palpation: + abdomen mildly tender (Epigastrium) and abdomen soft Status post PEG tube placement Musculoskeletal: No acute arthritis in any joints Neurologic: moves all extremities; no focal motor deficits, Alert awake and oriented x3, Psychiatric: A+Ox3, euthymic affect Results & Data Results & Data ([facility]) Vital Signs (Past 12 Hours) Vital Signs Temp Pulse Pulse Resp BP Pulse Ox 07/01/20 07:46 36.7 C 60 18 137/84 99 07/01/20 03:50 36.4 C L 78 18 135/70 98 07/01/20 00:01 75 Laboratory Results 07/01/20 07/01/20 07/01/20 Range/Units 11:22 07:24 06:48 WBC (4.8-10.8) K/uL RBC (4.2-5.4) M/uL Hgb (12.0-16.0) g/dL Hct (37-47) % MCV (80-100) fL MCH (25-34) pg MCHC (32-36) g/dL RDW Std Deviation (36.4-46.3) fL RDW Coeff of Adolph (11.5-14.5) % Plt Count (130-400) K/uL Immature Gran % (Auto) % Neut % (Auto) % Lymph % (Auto) % Hemphill % (Auto) % Eos % (Auto) % Baso % (Auto) % Neut # (Auto) (1.4-6.5) K/uL Lymph # (Auto) (1.2-3.4) K/uL Hemphill # (Auto) (0.11-0.59) K/uL Eos # (Auto) (0-0.5) K/uL Baso # (Auto) (0-0.2) K/uL Immature Gran # (Auto) (0.00-0.02) K/uL Platelet Estimate (Normal) Sodium 146 H (136-145) mmol/L Potassium 4.6 (3.5-5.1) mmol/L Chloride 115 H (98-107) mmol/L Carbon Dioxide 25 (21-32) mmol/L Anion Gap 6.0 (3-11) BUN 56 H (7-18) mg/dl Creatinine 1.16 (0.6-1.2) mg/dl Est Cr Clr Drug Dosing 33.0 ml/min Est GFR ( Amer) 48.3 Est GFR (Non-Af Amer) 41.7 BUN/Creatinine Ratio 48.0 H (10-20) Glucose 87 (70-99) mg/dl POC Glucose 108 H 91 (70-99) mg/dl Calcium 9.1 (8.5-10.1) mg/dl Phosphorus 2.6 (2.5-4.9) mg/dl Magnesium 2.1 (1.8-2.4) mg/dl Specimen Hemolysis 07/01/20 06/30/20 06/30/20 Range/Units 06:48 20:40 16:36 WBC 4.76 L (4.8-10.8) K/uL RBC 3.75 L (4.2-5.4) M/uL Hgb 11.8 L (12.0-16.0) g/dL Hct 36.7 L (37-47) % MCV 97.9 (80-100) fL MCH 31.5 (25-34) pg MCHC 32.2 (32-36) g/dL RDW Std Deviation 58.9 H (36.4-46.3) fL RDW Coeff of Adolph 16.5 H (11.5-14.5) % Plt Count 93 L (130-400) K/uL Immature Gran % (Auto) 0.6 % Neut % (Auto) 72.7 % Lymph % (Auto) 17.2 % Hemphill % (Auto) 7.6 % Eos % (Auto) 1.9 % Baso % (Auto) 0.0 % Neut # (Auto) 3.46 (1.4-6.5) K/uL Lymph # (Auto) 0.82 L (1.2-3.4) K/uL Hemphill # (Auto) 0.36 (0.11-0.59) K/uL Eos # (Auto) 0.09 (0-0.5) K/uL Baso # (Auto) 0.00 (0-0.2) K/uL Immature Gran # (Auto) 0.03 H (0.00-0.02) K/uL Platelet Estimate Decreased L (Normal) Sodium (136-145) mmol/L Potassium (3.5-5.1) mmol/L Chloride (98-107) mmol/L Carbon Dioxide (21-32) mmol/L Anion Gap (3-11) BUN (7-18) mg/dl Creatinine (0.6-1.2) mg/dl Est Cr Clr Drug Dosing ml/min Est GFR ( Amer) Est GFR (Non-Af Amer) BUN/Creatinine Ratio (10-20) Glucose (70-99) mg/dl POC Glucose 91 111 H (70-99) mg/dl Calcium (8.5-10.1) mg/dl Phosphorus (2.5-4.9) mg/dl Magnesium (1.8-2.4) mg/dl Specimen Hemolysis Medications Administered Current Inpatient Medications Acetaminophen (Acetaminophen 325 Mg Tab) 650 mg PO Q4H PRN PRN Reason: Pain or Fever Stop: 07/25/20 07:42 Last Admin: 06/25/20 07:53 Dose: 650 mg Documented by: Albuterol (Albuterol Hfa 8 Gm Inhaler) 2 puffs INH Q4H PRN PRN Reason: wheezing Stop: 07/23/20 19:13 Last Admin: 06/29/20 09:23 Dose: 2 puffs Documented by: Amlodipine Besylate (Amlodipine Besylate 5 Mg Tab) 10 mg PO DAILY BRANDON Stop: 07/24/20 08:59 Last Admin: 07/01/20 09:40 Dose: 10 mg Documented by: Bumetanide (Bumetanide 1 Mg Tab) 1 mg PO QAM BRANDON Stop: 07/28/20 08:59 Last Admin: 07/01/20 09:36 Dose: 1 mg Documented by: Calcium Carbonate (Calcium Carbonate 500 Mg Chewable Tab) 500 mg PO TIDM BRADNON Stop: 07/24/20 07:59 Last Admin: 07/01/20 09:44 Dose: 500 mg Documented by: Clobetasol Propionate (Clobetasol Propionate 0.05% Oint 15 Gm Tube) 1 appln EXT DAILY BRANDON Stop: 07/24/20 08:59 Last Admin: 07/01/20 09:42 Dose: 1 appln Documented by: Dextrose (Dextrose 50% 50 Ml Syringe) 25 - 50 ml IV UD PRN; Protocol PRN Reason: Hypoglycemia Protocol Stop: 07/23/20 19:44 Last Admin: 06/29/20 21:42 Dose: 25 ml Documented by: Enteral Nutritional Formula (Fibersource Hn 1.2 Bhavin 1000 Ml Bag) 1,000 ml GT UD BRANDON; Protocol Stop: 07/31/20 07:59 Fluticasone Propionate (Fluticasone Propionate Na Spr 16 Gm Btl) 2 sprays NA DAILY BRANDON Stop: 07/24/20 08:59 Last Admin: 07/01/20 09:41 Dose: 2 sprays Documented by: Fluticasone/Vilanterol (Fluticasone/Vilanterol 100/25mcg 14 Puffs/Inhaler) 1 puffs INH HS BRANDON Stop: 07/23/20 20:59 Last Admin: 06/30/20 21:40 Dose: 1 puffs Documented by: Glucagon (Glucagon For Inj 1 Mg Vial) 1 mg IM UD PRN; Protocol PRN Reason: Hypoglycemia Protocol Stop: 07/23/20 19:44 Glucose (Glucose 40% Gel 15 Gm Tube) 15 - 30 gm PO UD PRN; Protocol PRN Reason: Hypoglycemia Protocol Stop: 07/23/20 19:44 Glucose (Glucose 10 Tabs/Tube) 4 - 8 tabs PO UD PRN; Protocol PRN Reason: Hypoglycemia Protocol Stop: 07/23/20 19:44 Heparin Sodium (Porcine) (Heparin Sod 5,000 Unit/0.5 Ml Vial) 5,000 units SQ Q12 BRANDON Stop: 07/23/20 20:59 Last Admin: 06/29/20 20:37 Dose: 5,000 units Documented by: Hydrocortisone (Hydrocortisone 2.5% Cr 30 Gm Tube) 1 appln EXT BID PRN PRN Reason: Rash Stop: 07/23/20 19:13 Promethazine HCl 12.5 mg/ (Sodium Chloride) 50.5 mls @ 202 mls/hr IV Q6H PRN PRN Reason: Nausea And Vomiting Stop: 07/30/20 13:48 Insulin Glargine (Insulin Glargine Solostar 100 Units/Ml 3 Ml Pen) 4 units SQ DAILY BRANDON Stop: 07/24/20 08:59 Last Admin: 06/30/20 08:47 Dose: Not Given Documented by: Loratadine (Loratadine 10 Mg Tab) 10 mg PO DAILY BRANODN Stop: 07/24/20 08:59 Last Admin: 07/01/20 09:36 Dose: 10 mg Documented by: Lorazepam (Lorazepam 0.5 Mg Tab) 0.25 mg PO TID PRN PRN Reason: Anxiety Stop: 07/23/20 19:13 Metoclopramide HCl (Metoclopramide Hcl 5 Mg Tablet) 5 mg PO BIDM [facility] Stop: 07/24/20 07:59 Last Admin: 07/01/20 09:39 Dose: 5 mg Documented by: Metoprolol Tartrate (Metoprolol Tartrate 25 Mg Tab) 12.5 mg PO DAILY [facility] Stop: 07/23/20 19:13 Last Admin: 07/01/20 09:37 Dose: 12.5 mg Documented by: Miconazole Nitrate (Miconazole Nitrate Powder 43 Gm) 1 appln EXT PRN PRN PRN Reason: Affected Skin Folds Stop: 07/25/20 11:02 Last Admin: 07/01/20 09:36 Dose: 1 appln Documented by: Miscellaneous (Azelastine Order Awaiting Action) 1 ea N/A QS [facility] Stop: 07/24/20 00:00 Last Admin: 07/01/20 09:35 Dose: Not Given Documented by: Miscellaneous (Carbohydrates For Hypoglycemia ) 15 - 30 gm PO UD PRN PRN Reason: Hypoglycemia Treatment Stop: 07/23/20 19:44 Montelukast Sodium (Montelukast Sodium 10 Mg Tablet) 10 mg PO QPM [facility] Stop: 07/23/20 20:59 Last Admin: 06/30/20 21:42 Dose: Not Given Documented by: Multivitamins/Minerals (Cerovite Adv Formula Tab) 1 tab PO DAILY [facility] Stop: 07/24/20 08:59 Last Admin: 07/01/20 09:40 Dose: 1 tab Documented by: Nystatin (Nystatin Cr 15 Gm Tube) 1 appln EXT BID [facility] Stop: 07/23/20 20:59 Last Admin: 07/01/20 09:48 Dose: 1 appln Documented by: Ondansetron HCl (Ondansetron Inj 2 Mg/Ml 2 Ml Vial) 4 mg IV Q6H PRN PRN Reason: Nausea Stop: 07/28/20 16:21 Last Admin: 06/30/20 10:27 Dose: 4 mg Documented by: Pantoprazole Sodium (Pantoprazole 40 Mg Tab) 40 mg PO DAILY [facility] Stop: 07/24/20 08:59 Last Admin: 07/01/20 09:39 Dose: 40 mg Documented by: Petrolatum (Butt Paste (Zinc Oxide 16%) 171 Appln/57 Gm Jar) 1 appln EXT TID [facility]; Protocol Stop: 07/23/20 20:59 Last Admin: 07/01/20 09:36 Dose: 1 appln Documented by: Senna/Docusate Sodium (Docusate Sodium/Senna 50/8.6mg Tab) 1 tab PO BID [facility] Stop: 07/23/20 20:59 Last Admin: 07/01/20 09:40 Dose: 1 tab Documented by: (1) Urinary tract infection Hematuria presence: without hematuria Urinary tract infection type: site unspecified Qualified Code(s): N39.0 - Urinary tract infection, site not specified
[2020-07-01] MEDS: FIBERSOURCE HN 1.2 CAL 1000 ML BAG GT SCH (13:04)
[2020-07-01] MEDS: INSULIN GLARGINE SOLOSTAR 100 UNITS/ML 3 ML PEN SQ SCH (13:32)
[2020-07-01] MEDS: MONTELUKAST SODIUM 10 MG TABLET PO SCH (20:18)
[2020-07-01] MEDS: FLUTICASONE/VILANTEROL 100/25MCG 14 PUFFS/INHALER INH SCH (20:21)
[2020-07-02 08:24] LABS: BUN Creatinine Ratio 47.2 (10-20); Calcium 9.3 mg/dl (8.5-10.1); Creatinine Clr Calc Pharmacy 31.7 ml/min; Est GFR (African American) 45.9; Est GFR (Non-African American) 39.6; Magnesium 2.1 mg/dl (1.8-2.4); Phosphorus 1.7 mg/dl (2.5-4.9); Potassium 4.1 mmol/L (3.5-5.1)
[2020-07-02] MEDS ORDERED: POTASSIUM PHOS 3 MMOL/1 ML INFUSION IV STA (09:21)
--- NOTE | 2020-07-02 09:21 | Hospitalist Progress Note ---
Date of Service July 02, 2020 Assessment & Plan (1) Esophageal dysmotility: Under care of [facility] Speech therapy evaluation obtained Failed bedside swallowing evaluation and did not go for barium swallow due to risk of aspiration CT scan of the abdomen pelvis unremarkable [facility] consulted for possible EGD and dilatation with history of esophageal dilatation in the past Has had esophageal dilation in the past without any improvement on swallowing Her swallowing is seems to be cricopharyngeal and likely not to get any better with esophageal dilatation as per GI Plan to have reevaluation by speech since the patient is getting better from infection The problem of swallowing and aspiration persist, the next option would be PEG tube placement if everyone agrees on that Ongoing dysphagia Seems to be secondary to upper esophageal/pharyngeal issue Dysphagia did not improve with prior esophageal dilatation Plan to get a reevaluation from speech therapy today If dysphagia persist with significant aspiration then the patient will need to have PEG tube placement for feeding Discussed with the patient and she is agreeable to have a PEG tube Discussed with the family members especially the son and the the patient herself and the son wanted to have the PEG tube placement Status post PEG tube placement on 06/30/2020 Nutrition consult for PEG tube feeding, tube feeds started, tolerates well To be likely discharged tomorrow (2) Urinary tract infection: Presented with anorexia and nausea with vomiting Noted to have high white count of 17,000 with urine examination suggestive of infection Did not have any fever at presentation and tachycardia did not persist. Doubt any sepsis Urine has been sent for culture and blood has been sent for culture to Started with intravenous ceftriaxone Covid-Negative Ceftriaxone has been discontinued Ertapenem has been discontinued and ceftriaxone has been restarted Denies any symptoms DC'ed ceftriaxone Possible aspiration pneumonia Has history of esophageal dysmotility and as below Antibiotic has been changed to intravenous ertapenem Clinically a lot better and no evidence of lobar consolidation De-escalate antibiotic to intravenous ceftriaxone for now No more cough and/or shortness of breath Sacral decubiti ulcer stage III Dry and does not look like acutely infected, on admission Continue with wound care (3) Acute kidney injury superimposed on chronic kidney disease: Has history of chronic kidney disease stage IV Has acute on chronic kidney disease secondary to dehydration and use of diuretics and lisinopril held diuretics initially Received adequate amount of intravenous fluid Creatinine has been improving restarted diuretics (4) (HFpEF) heart failure with preserved ejection fraction: Has history of atrial fibrillation and heart failure with preserved EF No signs of fluid overload received cautious amount of intravenous fluid for acute dehydration Held diuretics initially Events of fluid overload, diuretics re-started Mild elevation of troponin Acute secondary to acute on chronic kidney disease EKG shows atrial fibrillation with right axis deviation, inferior infarct age undetermined lateral T wave inversion Doubt any ACS will repeated troponin, Second set of troponin improved Troponin elevation is secondary to acute on chronic kidney disease No ACS of any kind (5) Type 2 diabetes mellitus: Continue current medications Her on SSI (6) Asthma, moderate: No acute symptoms (7) Chronic a-fib: Chronic atrial fibrillation Rate is controlled now As per the epic note she has not been on any Coumadin DVT prophylaxis Heparin SQ CODE STATUS Full Discussed with the [id number] 07/02 Likely discharge tomorrow Admission and Anticipated Discharge Date Admission Date: June 23, 2020 Subjective Patient is lying in bed, in no acute distress, tube feeds have been started, so far patient has been tolerating well. No fevers, chills, chest pain, shortness of breath. Some mild epigastric discomfort. No vomiting or nausea. She reports she had a bowel movement yesterday however when discussed with nursing staff, bowel movement not noted. Will have to pay close attention to make sure patient is moving her bowels. Discussed with case management and dietitian, patient can be discharged to [facility] with tube feeds. Updated [id number] over the phone. Review of Systems Review of Systems: All systems reviewed & are unremarkable except as noted in HPI & below Constitutional: no fever and no chills Respiratory: no cough and no dyspnea Cardiovascular: no chest pain and no palpitations Gastrointestinal: + abdominal pain (some discomfort); no nausea and no vomiting Physical Exam Physical Exam: Physical Exam: Elderly female,lying in bed comfortably, ongoing tube feeds started Constitutional: + thin; no acute distress, + chronically ill appearing Eyes: PERRL, EOMI, conjunctivae normal, anicteric sclerae ENMT: external ear and nose normal, oropharynx normal Neck: trachea midline, no thyromegaly Respiratory: normal respiratory effort; no respiratory distress Auscultation: + diminished lung sounds, no wheezes noted Cardiovascular: Rate/Rhythm: + abnormal rate and + abnormal rhythm Heart Sounds: + murmur (2/6 ESM over precordium) Gastrointestinal (Abdomen): Inspection/Auscultation: abdomen normal to inspection and normal bowel sounds; abdomen not distended Percussion/Palpation: + abdomen mildly tender (Epigastrium) and abdomen soft Status post PEG tube placement Musculoskeletal: No acute arthritis in any joints Neurologic: moves all extremities; no focal motor deficits, Alert awake and oriented x3, Psychiatric: A+Ox3, appears somewhat depressed Results & Data Results & Data ([facility]) Vital Signs (Past 12 Hours) Vital Signs Temp Pulse Pulse Resp BP Pulse Ox 07/02/20 07:58 36.5 C 76 18 124/86 98 07/01/20 23:55 9 L 07/01/20 23:16 36.7 C 80 20 128/78 98 Laboratory Results 07/02/20 07/02/20 07/01/20 Range/Units 07:24 02:21 20:13 Sodium 148 H (136-145) mmol/L Potassium 4.1 (3.5-5.1) mmol/L Chloride 115 H (98-107) mmol/L Carbon Dioxide 28 (21-32) mmol/L Anion Gap 5.0 (3-11) BUN 57 H (7-18) mg/dl Creatinine 1.21 H (0.6-1.2) mg/dl Est Cr Clr Drug Dosing 31.7 ml/min Est GFR ( Amer) 45.9 Est GFR (Non-Af Amer) 39.6 BUN/Creatinine Ratio 47.2 H (10-20) Glucose 167 H (70-99) mg/dl POC Glucose 130 H 116 H (70-99) mg/dl Calcium 9.3 (8.5-10.1) mg/dl Phosphorus 1.7 L (2.5-4.9) mg/dl Magnesium 2.1 (1.8-2.4) mg/dl 07/01/20 07/01/20 Range/Units 16:41 11:22 Sodium (136-145) mmol/L Potassium (3.5-5.1) mmol/L Chloride (98-107) mmol/L Carbon Dioxide (21-32) mmol/L Anion Gap (3-11) BUN (7-18) mg/dl Creatinine (0.6-1.2) mg/dl Est Cr Clr Drug Dosing ml/min Est GFR ( Amer) Est GFR (Non-Af Amer) BUN/Creatinine Ratio (10-20) Glucose (70-99) mg/dl POC Glucose 124 H 108 H (70-99) mg/dl Calcium (8.5-10.1) mg/dl Phosphorus (2.5-4.9) mg/dl Magnesium (1.8-2.4) mg/dl (1) Urinary tract infection Hematuria presence: without hematuria Urinary tract infection type: site unspecified Qualified Code(s): N39.0 - Urinary tract infection, site not speci fied
[2020-07-02] MEDS: NYSTATIN CR 15 GM TUBE EXT SCH ×2 (09:23→20:07)
[2020-07-02] MEDS: BUTT PASTE (ZINC OXIDE 16%) 171 APPLN/57 GM JAR EXT SCH ×3 (09:23→20:07)
[2020-07-02] MEDS ORDERED: METOPROLOL TARTRATE 25 MG TAB PO SCH (09:23)
[2020-07-02] MEDS: CLOBETASOL PROPIONATE 0.05% OINT 15 GM TUBE EXT SCH (09:23)
[2020-07-02] MEDS: FLUTICASONE PROPIONATE NA SPR 16 GM BTL SCH (09:24)
[2020-07-02] MEDS ORDERED: ACETAMINOPHEN 325 MG TAB PEG PRN (09:25)
[2020-07-02] MEDS ORDERED: POTASSIUM PHOSPHATE 9 MMOL in SODIUM CHLORIDE 0.9% 250 ML IV ONE (09:30)
[2020-07-02] MEDS: INSULIN GLARGINE SOLOSTAR 100 UNITS/ML 3 ML PEN SQ SCH (09:32)
[2020-07-02] MEDS: DOCUSATE SODIUM/SENNA 50/8.6MG TAB PO SCH ×2 (09:43→20:06)
[2020-07-02] MEDS: BUMETANIDE 1 MG TAB PEG SCH (09:46)
[2020-07-02] MEDS: amLODIPine BESYLATE 5 MG TAB PEG SCH (09:47)
[2020-07-02] MEDS: CEROVITE ADV FORMULA TAB PO SCH (09:48)
[2020-07-02] MEDS: LORATADINE 10 MG TAB PEG SCH (09:48)
[2020-07-02] MEDS: METOCLOPRAMIDE HCL 5 MG TABLET PO SCH ×2 (09:49→16:08)
[2020-07-02] MEDS: METOPROLOL TARTRATE 25 MG TAB PO SCH ×2 (09:49→10:41)
[2020-07-02] MEDS: CALCIUM CARBONATE 500 MG CHEWABLE TAB PO SCH ×3 (09:53→16:08)
[2020-07-02] MEDS: LANSOPRAZOLE 30 MG SOLTAB PEG SCH (10:02)
[2020-07-02] MEDS: LORATADINE 10 MG TAB PO SCH (10:41)
[2020-07-02] MEDS: amLODIPine BESYLATE 5 MG TAB PO SCH (10:41)
[2020-07-02] MEDS: BUMETANIDE 1 MG TAB PO SCH (10:41)
[2020-07-02] MEDS: PANTOprazole 40 MG TAB PO SCH (10:41)
[2020-07-02] MEDS: FIBERSOURCE HN 1.2 CAL 1000 ML BAG GT SCH (13:58)
[2020-07-02] MEDS: MONTELUKAST SODIUM 10 MG TABLET PEG SCH (20:07)
[2020-07-02] MEDS: FLUTICASONE/VILANTEROL 100/25MCG 14 PUFFS/INHALER INH SCH (20:07)
--- NOTE | 2020-07-02 20:58 | XRay Report ---
XR chest 1V portable CLINICAL HISTORY: follow up cxr COMPARISON STUDY: Chest radiograph June 23, 2019. FINDINGS: There is no pneumothorax. Small left and trace right pleural effusions have developed. Righ t infrahilar opacity has increased. Left basilar opacity has also increased. There is no evidence for pulmonary edema. Moderate cardiomegaly is noted. IMPRESSION: 1. Increase in bibasilar opacities which may reflect pneumonia or atelectasis. Radiographic follow-up is recommended. 2. Small left and trace right pleural effusions. 3. No evidence for pulmonary edema. ACT 112: Negative or not required by law. Electronically signed by: Declan Person M.D. 07/02/2020 8:56 PM
[2020-07-02] MEDS: CHLORHEXIDINE GLUCONATE 0.12% 480 ML MT SCH (22:03)
[2020-07-03] MEDS ORDERED: METOCLOPRAMIDE HCL 5 MG/5 ML UDP PEG SCH (06:00)
[2020-07-03] MEDS ORDERED: INSULIN GLARGINE SOLOSTAR 100 UNITS/ML 3 ML PEN SC STA (06:31)
[2020-07-03] MEDS ORDERED: GLUCAGON FOR INJ 1 MG VIAL SQ PRN (06:32)
[2020-07-03] MEDS ORDERED: GLUCOSE 40% GEL 15 GM TUBE PO PRN (06:32)
[2020-07-03] MEDS ORDERED: GLUCOSE 10 TABS/TUBE PO PRN (06:32)
[2020-07-03] MEDS ORDERED: CARBOHYDRATES FOR HYPOGLYCEMIA PO PRN (06:32)
[2020-07-03] MEDS ORDERED: DEXTROSE 50% 50 ML SYRINGE IV PRN (06:32)
[2020-07-03] MEDS ORDERED: Nursing to Pharmacy Communication SCH (06:45)
[2020-07-03] MEDS: INSULIN ASPART 100 UNITS/ML 3 ML PEN SC SCH ×3 (07:15→19:48)
[2020-07-03] MEDS ORDERED: INSULIN ASPART 100 UNITS/ML 3 ML PEN SC SCH (07:30)
[2020-07-03 08:24] LABS: Estimated Average Glucose 128 mg/dl; Hemoglobin A1C 6.1 % (4.5-5.6)
[2020-07-03 08:40] LABS: BUN Creatinine Ratio 47.5 (10-20); Creatinine Clr Calc Pharmacy 32.8 ml/min; Est GFR (African American) 47.4; Est GFR (Non-African American) 40.9; Potassium 4.4 mmol/L (3.5-5.1)
[2020-07-03] MEDS: FIBERSOURCE HN 1.2 CAL 1000 ML BAG GT SCH (08:44)
[2020-07-03 08:58] LABS: Phosphorus 1.4 mg/dl (2.5-4.9)
[2020-07-03] MEDS: BUTT PASTE (ZINC OXIDE 16%) 171 APPLN/57 GM JAR EXT SCH ×3 (09:00→21:01)
[2020-07-03] MEDS: CLOBETASOL PROPIONATE 0.05% OINT 15 GM TUBE EXT SCH (09:00)
[2020-07-03] MEDS: NYSTATIN CR 15 GM TUBE EXT SCH ×2 (09:01→21:01)
[2020-07-03] MEDS ORDERED: POTASSIUM PHOS 3 MMOL/1 ML INFUSION IV STA ×2 (09:34→20:30)
[2020-07-03] MEDS ORDERED: POTASSIUM PHOSPHATE 15 MMOL in SODIUM CHLORIDE 0.9% 250 ML IV ONE (10:00)
[2020-07-03] MEDS: CHLORHEXIDINE GLUCONATE 0.12% 480 ML MT SCH ×2 (11:01→21:01)
[2020-07-03] MEDS: METOPROLOL TARTRATE 25 MG TAB PO SCH (11:05)
[2020-07-03] MEDS: LANSOPRAZOLE 30 MG SOLTAB PEG SCH (11:08)
[2020-07-03] MEDS: METOCLOPRAMIDE HCL 5 MG TABLET PO SCH ×2 (11:08→17:49)
[2020-07-03] MEDS: BUMETANIDE 1 MG TAB PEG SCH (11:08)
[2020-07-03] MEDS: CALCIUM CARBONATE 500 MG CHEWABLE TAB PO SCH ×3 (11:08→17:49)
[2020-07-03] MEDS: amLODIPine BESYLATE 5 MG TAB PEG SCH (11:08)
[2020-07-03] MEDS: CEROVITE ADV FORMULA TAB PO SCH (11:08)
[2020-07-03] MEDS: LORATADINE 10 MG TAB PEG SCH (11:08)
[2020-07-03] MEDS: FLUTICASONE PROPIONATE NA SPR 16 GM BTL SCH (11:08)
[2020-07-03] MEDS: DOCUSATE SODIUM/SENNA 50/8.6MG TAB PO SCH ×2 (11:09→21:02)
[2020-07-03 17:30] LABS: Calcium 8.5 mg/dl (8.5-10.1); Creatinine Clr Calc Pharmacy 32.8 ml/min; Est GFR (African American) 47.4; Est GFR (Non-African American) 40.9; Potassium 4.8 mmol/L (3.5-5.1)
--- NOTE | 2020-07-03 20:35 | Hospitalist Progress Note ---
Date of Service July 03, 2020 Assessment & Plan (1) Esophageal dysmotility: Under care of [facility] Speech therapy evaluation obtained Failed bedside swallowing evaluation and did not go for barium swallow due to risk of aspiration CT scan of the abdomen pelvis unremarkable [facility] consulted for possible EGD and dilatation with history of esophageal dilatation in the past Has had esophageal dilation in the past without any improvement on swallowing Her swallowing is seems to be cricopharyngeal and likely not to get any better with esophageal dilatation as per GI Plan to have reevaluation by speech since the patient is getting better from infection The problem of swallowing and aspiration persisted, the next option - PEG tube placement if everyone agrees on that Ongoing dysphagia Seems to be secondary to upper esophageal/pharyngeal issue Dysphagia did not improve with prior esophageal dilatation Reevaluated from speech therapy If dysphagia persist with significant aspiration then the patient will need to have PEG tube placement for feeding Discussed with the patient and she is agreeable to have a PEG tube Discussed with the family members especially the son and the the patient herself and the son wanted to have the PEG tube placement Status post PEG tube placement on 06/30/2020 Nutrition consult for PEG tube feeding, tube feeds started, tolerates well To be likely discharged tomorrow (2) Urinary tract infection: Presented with anorexia and nausea with vomiting Noted to have high white count of 17,000 with urine examination suggestive of infection Did not have any fever at presentation and tachycardia did not persist. Doubt any sepsis Urine has been sent for culture and blood has been sent for culture too Started with intravenous ceftriaxone Covid-Negative Ceftriaxone has been discontinued Ertapenem has been discontinued and ceftriaxone has been restarted Denies any symptoms DC'ed ceftriaxone Possible aspiration pneumonia Has history of esophageal dysmotility and as below Antibiotic has been changed to intravenous ertapenem Clinically a lot better and no evidence of lobar consolidation De-escalate antibiotic to intravenous ceftriaxone for now No more cough and/or shortness of breath Sacral decubiti ulcer stage III Dry and does not look like acutely infected, on admission Continue with wound care (3) Acute kidney injury superimposed on chronic kidney disease: Has history of chronic kidney disease stage IV Has acute on chronic kidney disease secondary to dehydration and use of diuretics and lisinopril held diuretics initially Received adequate amount of intravenous fluid Creatinine has been improving restarted diuretics (4) (HFpEF) heart failure with preserved ejection fraction: Has history of atrial fibrillation and heart failure with preserved EF No signs of fluid overload received cautious amount of intravenous fluid for acute dehydration Held diuretics initially Events of fluid overload, diuretics re-started Mild elevation of troponin Acute secondary to acute on chronic kidney disease EKG shows atrial fibrillation with right axis deviation, inferior infarct age undetermined lateral T wave inversion Doubt any ACS will repeated troponin, Second set of troponin improved Troponin elevation is secondary to acute on chronic kidney disease No ACS of any kind (5) Type 2 diabetes mellitus: Continue current medications Her on SSI (6) Asthma, moderate: No acute symptoms (7) Chronic a-fib: Chronic atrial fibrillation Rate is controlled now As per the epic note she has not been on any Coumadin DVT prophylaxis Heparin SQ CODE STATUS Full Discussed with the [id number]-yae 07/02 and son 0n 07/03 Likely discharge tomorrow Admission and Anticipated Discharge Date Admission Date: June 23, 2020 Subjective Patient is lying in bed, in no acute distress, tube feeds have been started, so far patient has been tolerating well. No fevers, chills, chest pain, shortness of breath. Some mild epigastric discomfort. No vomiting or nausea. Pt had a large bowel movement this morning. Discussed with case management and dietitian, patient can be discharged to [facility] with tube feeds. Updated son at the bedside. Review of Systems Review of Systems: All systems reviewed & are unremarkable except as noted in HPI & below All systems reviewed and are unremarkable except as noted below Constitutional: no fever and no chills Respiratory: no cough and no dyspnea Cardiovascular: no chest pain and no palpitations Gastrointestinal: + abdominal pain (some discomfort); no nausea and no vomiting Physical Exam Physical Exam: Physical Exam: Elderly female,lying in bed comfortably, ongoing tube feeds started Constitutional: + thin; no acute distress, + chronically ill appearing Eyes: PERRL, EOMI, conjunctivae normal, anicteric sclerae ENMT: external ear and nose normal, oropharynx normal Neck: trachea midline, no thyromegaly Respiratory: normal respiratory effort; no respiratory distress Auscultation: + diminished lung sounds, no wheezes noted Cardiovascular: Rate/Rhythm: + abnormal rate and + abnormal rhythm Heart Sounds: + murmur (2/6 ESM over precordium) Gastrointestinal (Abdomen): Inspection/Auscultation: abdomen normal to inspection and normal bowel sounds; abdomen not distended Percussion/Palpation: + abdomen mildly tender (Epigastrium) and abdomen soft Status post PEG tube placement Musculoskeletal: No acute arthritis in any joints Neurologic: moves all extremities; no focal motor deficits, Alert awake and oriented x3, Psychiatric: A+Ox3, appears somewhat depressed Results & Data Results & Data ([facility]) Vital Signs (Past 12 Hours) Vital Signs Temp Pulse Pulse Resp BP BP Pulse Ox 07/03/20 07:24 36.4 C L 77 18 128/69 95 07/03/20 03:11 36.5 C 71 18 130/74 96 07/02/20 23:59 71 07/02/20 23:51 36.6 C 67 18 146/79 H 95 Laboratory Results 07/03/20 07/03/20 07/03/20 Range/Units 16:57 11:34 07:27 Sodium 146 H (136-145) mmol/L Potassium 4.8 (3.5-5.1) mmol/L Chloride 114 H (98-107) mmol/L Carbon Dioxide 29 (21-32) mmol/L Anion Gap 3.0 (3-11) BUN 57 H (7-18) mg/dl Creatinine 1.18 (0.6-1.2) mg/dl Est Cr Clr Drug Dosing 32.8 ml/min Est GFR ( Amer) 47.4 Est GFR (Non-Af Amer) 40.9 BUN/Creatinine Ratio 48.0 H (10-20) Glucose 254 H (70-99) mg/dl POC Glucose 239 H (70-99) mg/dl Estimat Average Glucose 128 mg/dl Hemoglobin A1c 6.1 H (4.5-5.6) % Calcium 8.5 (8.5-10.1) mg/dl Phosphorus 2.0 L (2.5-4.9) mg/dl Magnesium (1.8-2.4) mg/dl 07/03/20 07/03/20 Range/Units 07:27 06:18 Sodium 147 H (136-145) mmol/L Potassium 4.4 (3.5-5.1) mmol/L Chloride 114 H (98-107) mmol/L Carbon Dioxide 28 (21-32) mmol/L Anion Gap 5.0 (3-11) BUN 56 H (7-18) mg/dl Creatinine 1.18 (0.6-1.2) mg/dl Est Cr Clr Drug Dosing 32.8 ml/min Est GFR ( Amer) 47.4 Est GFR (Non-Af Amer) 40.9 BUN/Creatinine Ratio 47.5 H (10-20) Glucose 263 H (70-99) mg/dl POC Glucose 259 H (70-99) mg/dl Estimat Average Glucose mg/dl Hemoglobin A1c (4.5-5.6) % Calcium 9.0 (8.5-10.1) mg/dl Phosphorus 1.4 L* (2.5-4.9) mg/dl Magnesium 2.0 (1.8-2.4) mg/dl Medications Administered 07/03/20 07/03/20 07/03/20 Range/Units 16:57 11:34 07:27 Sodium 146 H (136-145) mmol/L Potassium 4.8 (3.5-5.1) mmol/L Chloride 114 H (98-107) mmol/L Carbon Dioxide 29 (21-32) mmol/L Anion Gap 3.0 (3-11) BUN 57 H (7-18) mg/dl Creatinine 1.18 (0.6-1.2) mg/dl Est Cr Clr Drug Dosing 32.8 ml/min Est GFR ( Amer) 47.4 Est GFR (Non-Af Amer) 40.9 BUN/Creatinine Ratio 48.0 H (10-20) Glucose 254 H (70-99) mg/dl POC Glucose 239 H (70-99) mg/dl Estimat Average Glucose 128 mg/dl Hemoglobin A1c 6.1 H (4.5-5.6) % Calcium 8.5 (8.5-10.1) mg/dl Phosphorus 2.0 L (2.5-4.9) mg/dl Magnesium (1.8-2.4) mg/dl 07/03/20 07/03/20 Range/Units 07:27 06:18 Sodium 147 H (136-145) mmol/L Potassium 4.4 (3.5-5.1) mmol/L Chloride 114 H (98-107) mmol/L Carbon Dioxide 28 (21-32) mmol/L Anion Gap 5.0 (3-11) BUN 56 H (7-18) mg/dl Creatinine 1.18 (0.6-1.2) mg/dl Est Cr Clr Drug Dosing 32.8 ml/min Est GFR ( Amer) 47.4 Est GFR (Non-Af Amer) 40.9 BUN/Creatinine Ratio 47.5 H (10-20) Glucose 263 H (70-99) mg/dl POC Glucose 259 H (70-99) mg/dl Estimat Average Glucose mg/dl Hemoglobin A1c (4.5-5.6) % Calcium 9.0 (8.5-10.1) mg/dl Phosphorus 1.4 L* (2.5-4.9) mg/dl Magnesium 2.0 (1.8-2.4) mg/dl (1) Urinary tract infection Hematuria presence: without hematuria Urinary tract infection type: site unspecified Qualified Code(s): N39.0 - Urinary tract infection, site not specified
[2020-07-03] MEDS ORDERED: POTASSIUM PHOSPHATE 6 MMOL in SODIUM CHLORIDE 0.9% 250 ML IV ONE (21:00)
[2020-07-03] MEDS: MICONAZOLE NITRATE POWDER 43 GM EXT PRN (21:01)
[2020-07-03] MEDS: FLUTICASONE/VILANTEROL 100/25MCG 14 PUFFS/INHALER INH SCH (21:01)
[2020-07-03] MEDS: MONTELUKAST SODIUM 10 MG TABLET PEG SCH (21:02)
[2020-07-04] MEDS: INSULIN ASPART 100 UNITS/ML 3 ML PEN SC SCH ×4 (00:26→19:20)
[2020-07-04] MEDS: FIBERSOURCE HN 1.2 CAL 1000 ML BAG GT SCH ×2 (00:28→17:39)
[2020-07-04 06:07] LABS: Calcium 8.1 mg/dl (8.5-10.1); Creatinine Clr Calc Pharmacy 36.5 ml/min; Est GFR (African American) 53.9; Est GFR (Non-African American) 46.5; Phosphorus 1.6 mg/dl (2.5-4.9)
[2020-07-04] MEDS ORDERED: INSULIN GLARGINE SOLOSTAR 100 UNITS/ML 3 ML PEN SQ SCH (09:00)
[2020-07-04] MEDS ORDERED: SODIUM PHOSPHATE 3 MMOL/1 ML INFUSION IV STA ×2 (09:11→16:42)
[2020-07-04] MEDS: BUTT PASTE (ZINC OXIDE 16%) 171 APPLN/57 GM JAR EXT SCH ×3 (09:11→20:37)
[2020-07-04] MEDS: METOCLOPRAMIDE HCL 5 MG TABLET PO SCH ×2 (09:13→17:13)
[2020-07-04] MEDS: CALCIUM CARBONATE 500 MG CHEWABLE TAB PO SCH ×3 (09:13→17:19)
--- NOTE | 2020-07-04 09:13 | Hospitalist Progress Note ---
Date of Service July 04, 2020 Assessment & Plan (1) Esophageal dysmotility: Under care of [facility] Speech therapy evaluation obtained Failed bedside swallowing evaluation and did not go for barium swallow due to risk of aspiration CT scan of the abdomen pelvis unremarkable [facility] consulted for possible EGD and dilatation with history of esophageal dilatation in the past Has had esophageal dilation in the past without any improvement on swallowing Her swallowing is seems to be cricopharyngeal and likely not to get any better with esophageal dilatation as per GI Plan to have reevaluation by speech since the patient is getting better from infection The problem of swallowing and aspiration persisted, the next option - PEG tube placement if everyone agrees on that Ongoing dysphagia Seems to be secondary to upper esophageal/pharyngeal issue Dysphagia did not improve with prior esophageal dilatation Reevaluated from speech therapy If dysphagia persist with significant aspiration then the patient will need to have PEG tube placement for feeding Discussed with the patient and she is agreeable to have a PEG tube Discussed with the family members especially the son and the the patient herself and the son wanted to have the PEG tube placement Status post PEG tube placement on 06/30/2020 Nutrition consult for PEG tube feeding, tube feeds started, tolerates well To be likely discharged tomorrow Hypophosphatemia -Concern for possible refeeding syndrome, replete and monitor phosphorus level -Recommend to have rechecked phosphorus level after discharge within the next 2 days (2) Urinary tract infection: Presented with anorexia and nausea with vomiting Noted to have high white count of 17,000 with urine examination suggestive of infection Did not have any fever at presentation and tachycardia did not persist. Doubt any sepsis Urine has been sent for culture and blood has been sent for culture too Started with intravenous ceftriaxone Covid-Negative Ceftriaxone has been discontinued Ertapenem has been discontinued and ceftriaxone has been restarted Denies any symptoms DC'ed ceftriaxone Possible aspiration pneumonia Has history of esophageal dysmotility and as below Antibiotic has been changed to intravenous ertapenem Clinically a lot better and no evidence of lobar consolidation De-escalate antibiotic to intravenous ceftriaxone for now No more cough and/or shortness of breath Sacral decubiti ulcer stage III Dry and does not look like acutely infected, on admission Continue with wound care (3) Acute kidney injury superimposed on chronic kidney disease: Has history of chronic kidney disease stage IV Has acute on chronic kidney disease secondary to dehydration and use of diuretics and lisinopril held diuretics initially Received adequate amount of intravenous fluid Creatinine has been improving restarted diuretics (4) (HFpEF) heart failure with preserved ejection fraction: Has history of atrial fibrillation and heart failure with preserved EF No signs of fluid overload received cautious amount of intravenous fluid for acute dehydration Held diuretics initially Events of fluid overload, diuretics re-started Mild elevation of troponin Acute secondary to acute on chronic kidney disease EKG shows atrial fibrillation with right axis deviation, inferior infarct age undetermined lateral T wave inversion Doubt any ACS will repeated troponin, Second set of troponin improved Troponin elevation is secondary to acute on chronic kidney disease No ACS of any kind (5) Type 2 diabetes mellitus: Continue current medications Her on SSI (6) Asthma, moderate: No acute symptoms (7) Chronic a-fib: Chronic atrial fibrillation Rate is controlled now As per the epic note she has not been on any Coumadin DVT prophylaxis: Heparin SQ CODE STATUS: Full Discussed with the [id number] 07/02 and son on 07/03 Likely discharge Monday to [facility] Admission and Anticipated Discharge Date Admission Date: June 23, 2020 Subjective Patient is lying in bed, in no acute distress, tube feeds have been started, so far patient has been tolerating well. No fevers, chills, chest pain, shortness of breath. Some mild epigastric discomfort. No vomiting or nausea. Discussed with case management and dietitian, patient can be discharged to [facility] with tube feeds. Review of Systems Review of Systems: All systems reviewed & are unremarkable except as noted in HPI & below Constitutional: no fever and no chills Respiratory: no cough and no dyspnea Cardiovascular: no chest pain and no palpitations Gastrointestinal: + abdominal pain (mild discomfort at new PEG tube site); no nausea and no vomiting Physical Exam Physical Exam: Physical Exam: Elderly female,lying in bed comfortably, ongoing tube feeds started Constitutional: + thin; no acute distress, + chronically ill appearing Eyes: PERRL, EOMI, conjunctivae normal, anicteric sclerae ENMT: external ear and nose normal, oropharynx normal Neck: trachea midline, no thyromegaly Respiratory: normal respiratory effort; no respiratory distress Auscultation: + diminished lung sounds, no wheezes noted Cardiovascular: Rate/Rhythm: + abnormal rate and + abnormal rhythm Heart Sounds: + murmur (2/6 ESM over precordium) Gastrointestinal (Abdomen): Inspection/Auscultation: abdomen normal to inspection and normal bowel sounds; abdomen not distended Percussion/Palpation: + abdomen mildly tender (Epigastrium) and abdomen soft Status post PEG tube placement Musculoskeletal: No acute arthritis in any joints Neurologic: moves all extremities; no focal motor deficits, Alert awake and oriented x3, Psychiatric: A+Ox3, appears somewhat depressed Results & Data Results & Data ([facility]) Vital Signs (Past 12 Hours) Vital Signs Temp Pulse Pulse Resp BP BP Pulse Ox 07/04/20 08:14 36.9 C 70 18 123/74 99 07/04/20 07:24 68 07/04/20 04:17 37 C 56 L 16 127/62 93 07/03/20 23:45 36.8 C 74 16 108/70 96 Laboratory Results 07/04/20 07/04/20 07/04/20 Range/Units 05:21 05:17 00:12 Sodium 146 H (136-145) mmol/L Potassium 5.0 (3.5-5.1) mmol/L Chloride 115 H (98-107) mmol/L Carbon Dioxide 29 (21-32) mmol/L Anion Gap 2.0 L (3-11) BUN 56 H (7-18) mg/dl Creatinine 1.06 (0.6-1.2) mg/dl Est Cr Clr Drug Dosing 36.5 ml/min Est GFR ( Amer) 53.9 Est GFR (Non-Af Amer) 46.5 BUN/Creatinine Ratio 53.0 H (10-20) Glucose 198 H (70-99) mg/dl POC Glucose 189 H 291 H (70-99) mg/dl Calcium 8.1 L (8.5-10.1) mg/dl Phosphorus 1.6 L (2.5-4.9) mg/dl 07/03/20 07/03/20 Range/Units 16:57 11:34 Sodium 146 H (136-145) mmol/L Potassium 4.8 (3.5-5.1) mmol/L Chloride 114 H (98-107) mmol/L Carbon Dioxide 29 (21-32) mmol/L Anion Gap 3.0 (3-11) BUN 57 H (7-18) mg/dl Creatinine 1.18 (0.6-1.2) mg/dl Est Cr Clr Drug Dosing 32.8 ml/min Est GFR ( Amer) 47.4 Est GFR (Non-Af Amer) 40.9 BUN/Creatinine Ratio 48.0 H (10-20) Glucose 254 H (70-99) mg/dl POC Glucose 239 H (70-99) mg/dl Calcium 8.5 (8.5-10.1) mg/dl Phosphorus 2.0 L (2.5-4.9) mg/dl Medications Administered Current Inpatient Medications Acetaminophen (Acetaminophen 325 Mg Tab) 650 mg PEG Q4H PRN PRN Reason: Pain or Fever Stop: 07/25/20 07:42 Last Admin: 07/02/20 12:44 Dose: 650 mg Documented by: Albuterol (Albuterol Hfa 8 Gm Inhaler) 2 puffs INH Q4H PRN PRN Reason: wheezing Stop: 07/23/20 19:13 Last Admin: 06/29/20 09:23 Dose: 2 puffs Documented by: Amlodipine Besylate (Amlodipine Besylate 5 Mg Tab) 10 mg PEG DAILY BRANDON Stop: 08/01/20 09:29 Last Admin: 07/03/20 11:08 Dose: 10 mg Documented by: Bumetanide (Bumetanide 1 Mg Tab) 1 mg PEG QAM BRANDON Stop: 08/01/20 09:29 Last Admin: 07/03/20 11:08 Dose: 1 mg Documented by: Calcium Carbonate (Calcium Carbonate 500 Mg Chewable Tab) 500 mg PO TIDM BRANDON Stop: 07/24/20 07:59 Last Admin: 07/03/20 17:49 Dose: 500 mg Documented by: Chlorhexidine Gluconate (Chlorhexidine Gluconate 0.12% 480 Ml) 15 ml MT BID BRANDON Stop: 08/01/20 20:59 Last Admin: 07/03/20 21:01 Dose: 15 ml Documented by: Clobetasol Propionate (Clobetasol Propionate 0.05% Oint 15 Gm Tube) 1 appln EXT DAILY BRANDON Stop: 07/24/20 08:59 Last Admin: 07/03/20 09:00 Dose: 1 appln Documented by: Dextrose (Dextrose 50% 50 Ml Syringe) 25 - 50 ml IV UD PRN; Protocol PRN Reason: Hypoglycemia Protocol Stop: 07/23/20 19:44 Last Admin: 06/29/20 21:42 Dose: 25 ml Documented by: Enteral Nutritional Formula (Fibersource Hn 1.2 Bhavin 1000 Ml Bag) 1,000 ml GT UD BRANDON; Protocol Stop: 07/31/20 07:59 Last Admin: 07/04/20 00:28 Dose: 1,000 ml Documented by: Fluticasone Propionate (Fluticasone Propionate Na Spr 16 Gm Btl) 2 sprays NA DAILY BRANDON Stop: 07/24/20 08:59 Last Admin: 07/03/20 11:08 Dose: 2 sprays Documented by: Fluticasone/Vilanterol (Fluticasone/Vilanterol 100/25mcg 14 Puffs/Inhaler) 1 puffs INH HS BRANDON Stop: 07/23/20 20:59 Last Admin: 07/03/20 21:01 Dose: Not Given Documented by: Glucagon (Glucagon For Inj 1 Mg Vial) 1 mg IM UD PRN; Protocol PRN Reason: Hypoglycemia Protocol Stop: 07/23/20 19:44 Glucose (Glucose 40% Gel 15 Gm Tube) 15 - 30 gm PO UD PRN; Protocol PRN Reason: Hypoglycemia Protocol Stop: 07/23/20 19:44 Glucose (Glucose 10 Tabs/Tube) 4 - 8 tabs PO UD PRN; Protocol PRN Reason: Hypoglycemia Protocol Stop: 07/23/20 19:44 Heparin Sodium (Porcine) (Heparin Sod 5,000 Unit/0.5 Ml Vial) 5,000 units SQ Q12 BRANDON Stop: 07/23/20 20:59 Last Admin: 06/29/20 20:37 Dose: 5,000 units Documented by: Hydrocortisone (Hydrocortisone 2.5% Cr 30 Gm Tube) 1 appln EXT BID PRN PRN Reason: Rash Stop: 07/23/20 19:13 Promethazine HCl 12.5 mg/ (Sodium Chloride) 50.5 mls @ 202 mls/hr IV Q6H PRN PRN Reason: Nausea And Vomiting Stop: 07/30/20 13:48 Insulin Aspart (Insulin Aspart 100 Units/Ml 3 Ml Pen) 0 units SC Q6 BRANDON Stop: 08/02/20 06:44 Last Admin: 07/04/20 05:37 Dose: 1 units Documented by: Insulin Glargine (Insulin Glargine Solostar 100 Units/Ml 3 Ml Pen) 10 units SQ DAILY BRANDON Stop: 11/09/20 08:59 Lansoprazole (Lansoprazole 30 Mg Soltab) 30 mg PEG DAILY BRANDON Stop: 08/01/20 09:59 Last Admin: 07/03/20 11:08 Dose: 30 mg Documented by: Loratadine (Loratadine 10 Mg Tab) 10 mg PEG DAILY BRANDON Stop: 08/01/20 09:29 Last Admin: 07/03/20 11:08 Dose: 10 mg Documented by: Lorazepam (Lorazepam 0.5 Mg Tab) 0.25 mg PO TID PRN PRN Reason: Anxiety Stop: 07/23/20 19:13 Metoclopramide HCl (Metoclopramide Hcl 5 Mg Tablet) 5 mg PO BIDM BRANDON Stop: 07/24/20 07:59 Last Admin: 07/03/20 17:49 Dose: 5 mg Documented by: Metoprolol Tartrate (Metoprolol Tartrate 25 Mg Tab) 12.5 mg PO DAILY BRANDON Stop: 07/23/20 19:13 Last Admin: 07/03/20 11:05 Dose: 12.5 mg Documented by: Miconazole Nitrate (Miconazole Nitrate Powder 43 Gm) 1 appln EXT PRN PRN PRN Reason: Affected Skin Folds Stop: 07/25/20 11:02 Last Admin: 07/03/20 21:01 Dose: 1 appln Documented by: Miscellaneous (Azelastine Order Awaiting Action) 1 ea N/A QS [facility], [facility] Stop: 07/24/20 00:00 Last Admin: 07/04/20 08:56 Dose: Not Given Documented by: Miscellaneous (Carbohydrates For Hypoglycemia ) 15 - 30 gm PO UD PRN PRN Reason: Hypoglycemia Treatment Stop: 07/23/20 19:44 Montelukast Sodium (Montelukast Sodium 10 Mg Tablet) 10 mg PEG QPM BRANDON Stop: 07/23/20 20:59 Last Admin: 07/03/20 21:02 Dose: 10 mg Documented by: Multivitamins/Minerals (Cerovite Adv Formula Tab) 1 tab PO DAILY BRANDON Stop: 07/24/20 08:59 Last Admin: 07/03/20 11:08 Dose: 1 tab Documented by: Nystatin (Nystatin Cr 15 Gm Tube) 1 appln EXT BID BRANDON Stop: 07/23/20 20:59 Last Admin: 07/03/20 21:01 Dose: 1 appln Documented by: Ondansetron HCl (Ondansetron Inj 2 Mg/Ml 2 Ml Vial) 4 mg IV Q6H PRN PRN Reason: Nausea Stop: 07/28/20 16:21 Last Admin: 06/30/20 10:27 Dose: 4 mg Documented by: Petrolatum (Butt Paste (Zinc Oxide 16%) 171 Appln/57 Gm Jar) 1 appln EXT TID BRANDON; Protocol Stop: 07/23/20 20:59 Last Admin: 07/03/20 21:01 Dose: 1 appln Documented by: Senna/Docusate Sodium (Docusate Sodium/Senna 50/8.6mg Tab) 1 tab PO BID BRANDON Stop: 07/23/20 20:59 Last Admin: 07/03/20 21:02 Dose: Not Given Documented by: Sodium Phosphate (Sodium Phosphate 3 Mmol/1 Ml Infusion) 12 mmol IV NOW STA Stop: 07/04/20 09:12 (1) Urinary tract infection Hematuria presence: without hematuria Urinary tract infection type: site unspecified Qualified Code(s): N39.0 - Urinary tract infection, site not specified
[2020-07-04] MEDS: BUMETANIDE 1 MG TAB PEG SCH (09:14)
[2020-07-04] MEDS: LORATADINE 10 MG TAB PEG SCH (09:14)
[2020-07-04] MEDS: NYSTATIN CR 15 GM TUBE EXT SCH ×2 (09:15→20:37)
[2020-07-04] MEDS: CLOBETASOL PROPIONATE 0.05% OINT 15 GM TUBE EXT SCH (09:15)
[2020-07-04] MEDS: FLUTICASONE PROPIONATE NA SPR 16 GM BTL SCH (09:16)
[2020-07-04] MEDS: CEROVITE ADV FORMULA TAB PO SCH (09:17)
[2020-07-04] MEDS: METOPROLOL TARTRATE 25 MG TAB PO SCH (09:17)
[2020-07-04] MEDS: LANSOPRAZOLE 30 MG SOLTAB PEG SCH (09:18)
[2020-07-04] MEDS: amLODIPine BESYLATE 5 MG TAB PEG SCH (09:18)
[2020-07-04] MEDS: DOCUSATE SODIUM/SENNA 50/8.6MG TAB PO SCH ×2 (09:19→20:36)
[2020-07-04] MEDS: CHLORHEXIDINE GLUCONATE 0.12% 480 ML MT SCH ×2 (09:23→20:36)
[2020-07-04] MEDS ORDERED: SODIUM PHOSPHATE 12 MMOL in SODIUM CHLORIDE 0.9% 250 ML IV ONE (10:00)
[2020-07-04 16:06] LABS: BUN Creatinine Ratio 51.8 (10-20); Calcium 7.9 mg/dl (8.5-10.1); Creatinine Clr Calc Pharmacy 35.8 ml/min; Est GFR (African American) 52.7; Est GFR (Non-African American) 45.5; Phosphorus 2.1 mg/dl (2.5-4.9)
[2020-07-04] MEDS ORDERED: SODIUM PHOSPHATE 9 MMOL in SODIUM CHLORIDE 0.9% 250 ML IV ONE (17:00)
[2020-07-04] MEDS: MONTELUKAST SODIUM 10 MG TABLET PEG SCH (20:36)
[2020-07-04] MEDS: FLUTICASONE/VILANTEROL 100/25MCG 14 PUFFS/INHALER INH SCH (20:37)
[2020-07-05] MEDS ORDERED: INSULIN GLARGINE SOLOSTAR 100 UNITS/ML 3 ML PEN SC STA (00:17)
[2020-07-05] MEDS ORDERED: SODIUM CHLORIDE 0.45 % 1,000 ML IV ONE (00:28)
[2020-07-05] MEDS: INSULIN ASPART 100 UNITS/ML 3 ML PEN SC SCH ×4 (01:02→18:06)
[2020-07-05] MEDS: FIBERSOURCE HN 1.2 CAL 1000 ML BAG GT SCH (06:26)
--- NOTE | 2020-07-05 07:44 | Hospitalist Progress Note ---
Date of Service July 05, 2020 Assessment & Plan (1) Esophageal dysmotility: Under care of [facility] Speech therapy evaluation obtained Failed bedside swallowing evaluation and did not go for barium swallow due to risk of aspiration CT scan of the abdomen pelvis unremarkable [facility] consulted for possible EGD and dilatation with history of esophageal dilatation in the past Has had esophageal dilation in the past without any improvement on swallowing Her swallowing is seems to be cricopharyngeal and likely not to get any better with esophageal dilatation as per GI Plan to have reevaluation by speech since the patient is getting better from infection The problem of swallowing and aspiration persisted, the next option - PEG tube placement if everyone agrees on that Ongoing dysphagia Seems to be secondary to upper esophageal/pharyngeal issue Dysphagia did not improve with prior esophageal dilatation Reevaluated from speech therapy If dysphagia persist with significant aspiration then the patient will need to have PEG tube placement for feeding Discussed with the patient and she is agreeable to have a PEG tube Discussed with the family members especially the son and the the patient herself and the son wanted to have the PEG tube placement Status post PEG tube placement on 06/30/2020 Nutrition consult for PEG tube feeding, tube feeds started, tolerates well To be likely discharged tomorrow Hypophosphatemia -Concern for possible refeeding syndrome, replete and monitor phosphorus level -Recommend to have rechecked phosphorus level after discharge within the next 2 days Hyperkalemia, hyperglycemia -Give Kayexalate, recheck level -Insulin management by pharmacy (2) Urinary tract infection: Presented with anorexia and nausea with vomiting Noted to have high white count of 17,000 with urine examination suggestive of infection Did not have any fever at presentation and tachycardia did not persist. Doubt any sepsis Urine has been sent for culture and blood has been sent for culture too Started with intravenous ceftriaxone Covid-Negative Ceftriaxone has been discontinued Ertapenem has been discontinued and ceftriaxone has been restarted Denies any symptoms DC'ed ceftriaxone Possible aspiration pneumonia Has history of esophageal dysmotility and as below Antibiotic has been changed to intravenous ertapenem Clinically a lot better and no evidence of lobar consolidation De-escalate antibiotic to intravenous ceftriaxone for now No more cough and/or shortness of breath Sacral decubiti ulcer stage III Dry and does not look like acutely infected, on admission Continue with wound care (3) Acute kidney injury superimposed on chronic kidney disease: Has history of chronic kidney disease stage IV Has acute on chronic kidney disease secondary to dehydration and use of diuretics and lisinopril held diuretics initially Received adequate amount of intravenous fluid Creatinine has been improving restarted diuretics (4) (HFpEF) heart failure with preserved ejection fraction: Has history of atrial fibrillation and heart failure with preserved EF No signs of fluid overload received cautious amount of intravenous fluid for acute dehydration Held diuretics initially Events of fluid overload, diuretics re-started Mild elevation of troponin Acute secondary to acute on chronic kidney disease EKG shows atrial fibrillation with right axis deviation, inferior infarct age undetermined lateral T wave inversion Doubt any ACS will repeated troponin, Second set of troponin improved Troponin elevation is secondary to acute on chronic kidney disease No ACS of any kind (5) Type 2 diabetes mellitus: Continue current medications Her on SSI (6) Asthma, moderate: No acute symptoms (7) Chronic a-fib: Chronic atrial fibrillation Rate is controlled now As per the epic note she has not been on any Coumadin CODE STATUS: Full Discussed with the [id number] and son Likely discharge Monday to [facility] Admission and Anticipated Discharge Date Admission Date: June 23, 2020 Subjective Patient reports some shortness of breath however she is lying in bed comfortable.Patient is lying in bed, in no acute distress, tube feeds have been started, so far patient has been tolerating well. No fevers, chills, chest pain. Patient reports some shortness of breath however she is lying in bed comfortable. Some mild epigastric discomfort. No vomiting or nausea. [id number] updated at the bedside. Review of Systems Review of Systems: All systems reviewed & are unremarkable except as noted in HPI & below Constitutional: no fever and no chills Respiratory: + dyspnea; no cough Cardiovascular: no chest pain and no palpitations Gastrointestinal: no nausea and no vomiting Physical Exam Physical Exam: Physical Exam: Elderly female,lying in bed comfortably, ongoing tube feeds started Constitutional: + thin; no acute distress, + chronically ill appearing Eyes: PERRL, EOMI, conjunctivae normal, anicteric sclerae ENMT: external ear and nose normal, oropharynx normal Neck: trachea midline, no thyromegaly Respiratory: normal respiratory effort; no respiratory distress Auscultation: + diminished lung sounds, no wheezes, rhonchi, crackles noted Cardiovascular: Rate/Rhythm: + abnormal rate and + abnormal rhythm Heart Sounds: + murmur (2/6 ESM over precordium) Gastrointestinal (Abdomen): Inspection/Auscultation: abdomen normal to inspection and normal bowel sounds; abdomen not distended Percussion/Palpation: + abdomen mildly tender (Epigastrium) and abdomen soft Status post PEG tube placement Musculoskeletal: No acute arthritis in any joints Neurologic: moves all extremities; no focal motor deficits, Alert awake and oriented x3, Psychiatric: A+Ox3, appears somewhat depressed Results & Data Results & Data ([facility]) Vital Signs (Past 12 Hours) Vital Signs Temp Pulse Pulse Resp BP BP Pulse Ox 07/05/20 07:28 36.4 C L 64 18 116/68 99 07/05/20 07:20 68 07/05/20 03:54 36.8 C 60 18 119/73 95 07/04/20 23:24 65 07/04/20 22:59 36.8 C 70 19 136/60 96 07/04/20 19:56 37.0 C 78 19 134/74 97 (1) Urinary tract infection Hematuria presence: without hematuria Urinary tract infection type: site unspecified Qualified Code(s): N39.0 - Urinary tract infection, site not specified
[2020-07-05 08:26] LABS: BUN Creatinine Ratio 54.2 (10-20); Creatinine Clr Calc Pharmacy 36.4 ml/min; Est GFR (African American) 53.9; Est GFR (Non-African American) 46.5; Potassium 5.2 mmol/L (3.5-5.1)
[2020-07-05] MEDS ORDERED: SODIUM PHOSPHATE 3 MMOL/1 ML INFUSION IV STA (08:40)
[2020-07-05] MEDS ORDERED: INSULIN GLARGINE SOLOSTAR 100 UNITS/ML 3 ML PEN SQ SCH (09:00)
[2020-07-05] MEDS ORDERED: SODIUM POLYSTYRENE SULFONATE 15G/60ML SUSP GT ONE (09:15)
[2020-07-05] MEDS: BUTT PASTE (ZINC OXIDE 16%) 171 APPLN/57 GM JAR EXT SCH ×3 (09:29→21:17)
[2020-07-05] MEDS: BUMETANIDE 1 MG TAB PEG SCH (09:30)
[2020-07-05] MEDS: CALCIUM CARBONATE 500 MG CHEWABLE TAB PO SCH ×3 (09:30→16:34)
[2020-07-05] MEDS: LORATADINE 10 MG TAB PEG SCH (09:30)
[2020-07-05] MEDS: METOCLOPRAMIDE HCL 5 MG TABLET PO SCH ×2 (09:30→16:32)
[2020-07-05] MEDS: CLOBETASOL PROPIONATE 0.05% OINT 15 GM TUBE EXT SCH (09:31)
[2020-07-05] MEDS: FLUTICASONE PROPIONATE NA SPR 16 GM BTL SCH (09:31)
[2020-07-05] MEDS: CEROVITE ADV FORMULA TAB PO SCH (09:32)
[2020-07-05] MEDS: METOPROLOL TARTRATE 25 MG TAB PO SCH (09:32)
[2020-07-05] MEDS: CHLORHEXIDINE GLUCONATE 0.12% 480 ML MT SCH ×2 (09:33→21:17)
[2020-07-05] MEDS: NYSTATIN CR 15 GM TUBE EXT SCH ×2 (09:33→21:17)
[2020-07-05] MEDS: LANSOPRAZOLE 30 MG SOLTAB PEG SCH (09:33)
[2020-07-05] MEDS: DOCUSATE SODIUM/SENNA 50/8.6MG TAB PO SCH (09:33)
[2020-07-05] MEDS: amLODIPine BESYLATE 5 MG TAB PEG SCH (09:33)
[2020-07-05] MEDS ORDERED: SODIUM PHOSPHATE 15 MMOL in SODIUM CHLORIDE 0.9% 250 ML IV ONE (09:45)
[2020-07-05 16:18] LABS: Calcium 7.8 mg/dl (8.5-10.1); Creatinine Clr Calc Pharmacy 34.7 ml/min; Potassium 5.9 mmol/L (3.5-5.1)
[2020-07-05] MEDS ORDERED: SODIUM POLYSTYRENE SULFONATE 15G/60ML SUSP PO STA (17:09)
[2020-07-05] MEDS ORDERED: CALCIUM GLUCONATE 10% 1,000 MG in SODIUM CHLORIDE 0.9% 50 ML IV ONE (17:30)
[2020-07-05] MEDS ORDERED: PHARMACY GLYCEMIC MGMT CONSULT PRN (17:36)
--- NOTE | 2020-07-05 19:46 | XRay Report ---
SINGLE VIEW CHEST CLINICAL HISTORY: Dyspnea. FINDINGS: An AP, portable, upright chest radiograph is compared to study dated 07/02/2020. Correlation is made with chest CT dated 08/31/2015. The examination is degraded by portable technique, apical miguel angel dotic positioning, and patient rotation. The heart is mildly enlarged noting atherosclerotic calcific ation of the thoracic aorta. The pulmonary vasculature is noncongested. There are small pleural effus ions with bibasilar consolidation. No pneumothorax is seen. The skeletal structures are osteopenic. T he bony thorax is grossly intact. Degenerative changes noted in the left shoulder. IMPRESSION: 1. Cardiomegaly without radiographic evidence of congestive failure. 2. Layering pleural effusions with bibasilar consolidation. This could represent atelectasis and/or a n infectious/inflammatory pneumonitis. Clinical correlation will be required ACT 112: Negative or not required by law. Electronically signed by: Dinh Skelton M.D. 07/05/2020 7:45 PM
[2020-07-05 20:37] LABS: Allen Test Pos (Pos); Base Excess ABG 1.8 mEq/L (-9-1.8); HCO3 ABG 26 mmol/L (19-24); PCO2 ABG 37 mmHg (35-46); PO2 ABG 89 mmHg (80-95); pH ABG 7.46 (7.35-7.45)
[2020-07-05 21:06] LABS: Albumin Level 1.8 gm/dl (3.4-5.0); BUN Creatinine Ratio 52.1 (10-20); Bilirubin Direct 0.1 mg/dl (0-0.2); Bilirubin,Total 0.4 mg/dl (0.2-1); Calcium 8.5 mg/dl (8.5-10.1); Creatinine Clr Calc Pharmacy 36.4 ml/min; Est GFR (African American) 53.9; Est GFR (Non-African American) 46.5; Potassium 4.4 mmol/L (3.5-5.1); Total Protein 5.1 gm/dl (6.4-8.2)
[2020-07-05] MEDS: FLUTICASONE/VILANTEROL 100/25MCG 14 PUFFS/INHALER INH SCH (21:16)
[2020-07-05] MEDS: MONTELUKAST SODIUM 10 MG TABLET PEG SCH (21:17)
[2020-07-06] MEDS: INSULIN ASPART 100 UNITS/ML 3 ML PEN SC SCH ×5 (00:15→21:20)
--- NOTE | 2020-07-06 07:26 | Communication Note ---
Date of Service: July 05, 2020 Fibersource HN tube feeds held for now given hyperkalemia and hyperglycemia. Will request AM provider to discuss alternative tube feed formula for patient given above metabolic issues.
--- NOTE | 2020-07-06 07:55 | Hospitalist Progress Note ---
Date of Service July 06, 2020 Assessment & Plan (1) Esophageal dysmotility: Under care of [facility] GI Speech therapy evaluation obtained Failed bedside swallowing evaluation and did not go for barium swallow due to risk of aspiration CT scan of the abdomen pelvis unremarkable [facility] consulted for possible EGD and dilatation with history of esophageal dilatation in the past Has had esophageal dilation in the past without any improvement on swallowing Her swallowing is seems to be cricopharyngeal and likely not to get any better with esophageal dilatation as per GI Plan to have reevaluation by speech since the patient is getting better from infection The problem of swallowing and aspiration persisted, the next option - PEG tube placement if everyone agrees on that Ongoing dysphagia Seems to be secondary to upper esophageal/pharyngeal issue Dysphagia did not improve with prior esophageal dilatation Reevaluated from speech therapy If dysphagia persist with significant aspiration then the patient will need to have PEG tube placement for feeding Discussed with the patient and she is agreeable to have a PEG tube Discussed with the family members especially the son and the the patient herself and the son wanted to have the PEG tube placement Status post PEG tube placement on 06/30/2020 Nutrition consult for PEG tube feeding, tube feeds started, tolerates well To be likely discharged tomorrow Hypophosphatemia -Concern for possible refeeding syndrome, replete and monitor phosphorus level -Recommend to have rechecked phosphorus level after discharge within the next 2 days Hyperkalemia, hyperglycemia -Give Kayexalate, recheck level -Insulin management by pharmacy -After recheck of her blood work, patient still hyperglycemic and hyperkalemic, tube feeds stopped overnight -Discussed with dietitian today, July 06, who recommends to restart tube feeds, not to change the formula, and monitor BMP and phosphorus level. Stop Calcium carbonate which could be causing low phosphorus levels. Hyperkalemia may be due to frequent repletion of electrolytes. We will continue to closely monitor. (2) Urinary tract infection: Presented with anorexia and nausea with vomiting Noted to have high white count of 17,000 with urine examination suggestive of infection Did not have any fever at presentation and tachycardia did not persist. Doubt any sepsis Urine has been sent for culture and blood has been sent for culture too Started with intravenous ceftriaxone Covid-Negative Ceftriaxone has been discontinued Ertapenem has been discontinued and ceftriaxone has been restarted Denies any symptoms DC'ed ceftriaxone Possible aspiration pneumonia Has history of esophageal dysmotility and as below Antibiotic has been changed to intravenous ertapenem Clinically a lot better and no evidence of lobar consolidation De-escalate antibiotic to intravenous ceftriaxone for now No more cough and/or shortness of breath Sacral decubiti ulcer stage III Dry and does not look like acutely infected, on admission Continue with wound care (3) Acute kidney injury superimposed on chronic kidney disease: Has history of chronic kidney disease stage IV Has acute on chronic kidney disease secondary to dehydration and use of diuretics and lisinopril held diuretics initially Received adequate amount of intravenous fluid Creatinine has been improving restarted diuretics (4) (HFpEF) heart failure with preserved ejection fraction: Has history of atrial fibrillation and heart failure with preserved EF No signs of fluid overload received cautious amount of intravenous fluid for acute dehydration Held diuretics initially Events of fluid overload, diuretics re-started Mild elevation of troponin Acute secondary to acute on chronic kidney disease EKG shows atrial fibrillation with right axis deviation, inferior infarct age undetermined lateral T wave inversion Doubt any ACS will repeated troponin, Second set of troponin improved Troponin elevation is secondary to acute on chronic kidney disease No ACS of any kind (5) Type 2 diabetes mellitus: Continue current medications Her on SSI (6) Asthma, moderate: No acute symptoms (7) Chronic a-fib: Chronic atrial fibrillation Rate is controlled now As per the epic note she has not been on any Coumadin CODE STATUS: Full Discussed with the [id number] and son Plan to [facility] tomorrow Admission and Anticipated Discharge Date Admission Date: June 23, 2020 Subjective Patient is lying in bed, in no acute distress, resting comfortably. Currently has no complaints. No fevers, chills, chest pain. Due to hyperkalemia and hyperglycemia, tube feeds stopped overnight. This morning discussed with dietitian if different tube feeds should be started. Dietitian does not recommend to change and recommends to restart. Will restart at 15 cc/h and will go up to 60/h. We will closely monitor BMP and Phos levels. Will stop calcium carbonate as possible cause for low phos. Review of Systems Review of Systems: All systems reviewed & are unremarkable except as noted in HPI & below Constitutional: no fever and no chills Respiratory: no cough and no dyspnea Cardiovascular: no chest pain and no palpitations Gastrointestinal: no abdominal pain and no vomiting Physical Exam Physical Exam: Physical Exam: Elderly female,lying in bed comfortably, ongoing tube feeds started Constitutional: + thin; no acute distress, + chronically ill appearing Eyes: PERRL, EOMI, conjunctivae normal, anicteric sclerae ENMT: external ear and nose normal, oropharynx normal Neck: trachea midline, no thyromegaly Respiratory: normal respiratory effort; no respiratory distress Auscultation: + diminished lung sounds, no wheezes, rhonchi, crackles noted Cardiovascular: Rate/Rhythm: + abnormal rate and + abnormal rhythm Heart Sounds: + murmur (2/6 ESM over precordium) Gastrointestinal (Abdomen): Inspection/Auscultation: abdomen normal to inspection and normal bowel sounds; abdomen not distended Percussion/Palpation: + abdomen mildly tender (Epigastrium) and abdomen soft Status post PEG tube placement Musculoskeletal: No acute arthritis in any joints Neurologic: moves all extremities; no focal motor deficits, Alert awake and oriented x3, Psychiatric: A+Ox3, appears somewhat depressed Results & Data Results & Data ([facility]) Vital Signs (Past 12 Hours) Vital Signs Temp Pulse Pulse Resp BP BP Pulse Ox 07/06/20 07:45 36.6 C 73 18 122/75 99 07/06/20 03:00 37.2 C 67 20 130/77 96 07/05/20 23:59 75 07/05/20 23:38 37.1 C 61 20 122/63 95 Laboratory Results 07/06/20 07/06/20 07/06/20 Range/Units 16:45 11:41 07:26 WBC (4.8-10.8) K/uL RBC (4.2-5.4) M/uL Hgb (12.0-16.0) g/dL Hct (37-47) % MCV (80-100) fL MCH (25-34) pg MCHC (32-36) g/dL RDW Std Deviation (36.4-46.3) fL RDW Coeff of Adolph (11.5-14.5) % Plt Count (130-400) K/uL MPV (7.4-10.4) fL Immature Gran % (Auto) % Neut % (Auto) % Lymph % (Auto) % [place] % (Auto) % Eos % (Auto) % Baso % (Auto) % Neut # (Auto) (1.4-6.5) K/uL Lymph # (Auto) (1.2-3.4) K/uL [place] # (Auto) (0.11-0.59) K/uL Eos # (Auto) (0-0.5) K/uL Baso # (Auto) (0-0.2) K/uL Immature Gran # (Auto) (0.00-0.02) K/uL Platelet Estimate (Normal) ABG pH (7.35-7.45) ABG pCO2 (35-46) mmHg ABG pO2 (80-95) mmHg ABG HCO3 (19-24) mmol/L ABG O2 Saturation (90-95) % ABG Base Excess (-9-1.8) mEq/L Jose Test (Pos) Barometric Pressure mm/Hg Oxygen Given Sodium (136-145) mmol/L Potassium (3.5-5.1) mmol/L Chloride (98-107) mmol/L Carbon Dioxide (21-32) mmol/L Anion Gap (3-11) BUN (7-18) mg/dl Creatinine (0.6-1.2) mg/dl Est Cr Clr Drug Dosing ml/min Est GFR ( Amer) Est GFR (Non-Af Amer) BUN/Creatinine Ratio (10-20) Glucose (70-99) mg/dl POC Glucose 252 H 159 H 115 H (70-99) mg/dl Calcium (8.5-10.1) mg/dl Phosphorus (2.5-4.9) mg/dl Total Bilirubin (0.2-1) mg/dl Direct Bilirubin (0-0.2) mg/dl AST (15-37) U/L ALT (12-78) U/L Alkaline Phosphatase (45-117) U/L Total Creatine Kinase (26-192) U/L Total Protein (6.4-8.2) gm/dl Albumin (3.4-5.0) gm/dl Stl C. diff Tox B Gene (Neg) 07/06/20 07/06/20 07/06/20 Range/Units 07:10 07:10 06:20 WBC 7.50 (4.8-10.8) K/uL RBC 3.27 L (4.2-5.4) M/uL Hgb 10.2 L (12.0-16.0) g/dL Hct 31.8 L (37-47) % MCV 97.2 (80-100) fL MCH 31.2 (25-34) pg MCHC 32.1 (32-36) g/dL RDW Std Deviation 58.6 H (36.4-46.3) fL RDW Coeff of Adolph 16.6 H (11.5-14.5) % Plt Count 120 L (130-400) K/uL MPV 13.6 H (7.4-10.4) fL Immature Gran % (Auto) 0.7 % Neut % (Auto) 71.9 % Lymph % (Auto) 19.1 % [place] % (Auto) 6.3 % Eos % (Auto) 1.7 % Baso % (Auto) 0.3 % Neut # (Auto) 5.40 (1.4-6.5) K/uL Lymph # (Auto) 1.43 (1.2-3.4) K/uL [place] # (Auto) 0.47 (0.11-0.59) K/uL Eos # (Auto) 0.13 (0-0.5) K/uL Baso # (Auto) 0.02 (0-0.2) K/uL Immature Gran # (Auto) 0.05 H (0.00-0.02) K/uL Platelet Estimate Decreased L (Normal) ABG pH (7.35-7.45) ABG pCO2 (35-46) mmHg ABG pO2 (80-95) mmHg ABG HCO3 (19-24) mmol/L ABG O2 Saturation (90-95) % ABG Base Excess (-9-1.8) mEq/L Jose Test (Pos) Barometric Pressure mm/Hg Oxygen Given Sodium 145 (136-145) mmol/L Potassium 4.3 (3.5-5.1) mmol/L Chloride 111 H (98-107) mmol/L Carbon Dioxide 30 (21-32) mmol/L Anion Gap 4.0 (3-11) BUN 51 H (7-18) mg/dl Creatinine 0.98 (0.6-1.2) mg/dl Est Cr Clr Drug Dosing 39.8 ml/min Est GFR ( Amer) 59.3 Est GFR (Non-Af Amer) 51.1 BUN/Creatinine Ratio 51.6 H (10-20) Glucose 112 H (70-99) mg/dl POC Glucose 118 H (70-99) mg/dl Calcium 8.2 L (8.5-10.1) mg/dl Phosphorus 2.7 (2.5-4.9) mg/dl Total Bilirubin (0.2-1) mg/dl Direct Bilirubin (0-0.2) mg/dl AST (15-37) U/L ALT (12-78) U/L Alkaline Phosphatase (45-117) U/L Total Creatine Kinase (26-192) U/L Total Protein (6.4-8.2) gm/dl Albumin (3.4-5.0) gm/dl Stl C. diff Tox B Gene (Neg) 07/06/20 07/05/20 07/05/20 Range/Units 00:09 21:35 21:13 WBC (4.8-10.8) K/uL RBC (4.2-5.4) M/uL Hgb (12.0-16.0) g/dL Hct (37-47) % MCV (80-100) fL MCH (25-34) pg MCHC (32-36) g/dL RDW Std Deviation (36.4-46.3) fL RDW Coeff of Adolph (11.5-14.5) % Plt Count (130-400) K/uL MPV (7.4-10.4) fL Immature Gran % (Auto) % Neut % (Auto) % Lymph % (Auto) % [place] % (Auto) % Eos % (Auto) % Baso % (Auto) % Neut # (Auto) (1.4-6.5) K/uL Lymph # (Auto) (1.2-3.4) K/uL [place] # (Auto) (0.11-0.59) K/uL Eos # (Auto) (0-0.5) K/uL Baso # (Auto) (0-0.2) K/uL Immature Gran # (Auto) (0.00-0.02) K/uL Platelet Estimate (Normal) ABG pH (7.35-7.45) ABG pCO2 (35-46) mmHg ABG pO2 (80-95) mmHg ABG HCO3 (19-24) mmol/L ABG O2 Saturation (90-95) % ABG Base Excess (-9-1.8) mEq/L Jose Test (Pos) Barometric Pressure mm/Hg Oxygen Given Sodium (136-145) mmol/L Potassium (3.5-5.1) mmol/L Chloride (98-107) mmol/L Carbon Dioxide (21-32) mmol/L Anion Gap (3-11) BUN (7-18) mg/dl Creatinine (0.6-1.2) mg/dl Est Cr Clr Drug Dosing ml/min Est GFR ( Amer) Est GFR (Non-Af Amer) BUN/Creatinine Ratio (-20) Glucose (70-99) mg/dl POC Glucose 127 H 220 H (70-99) mg/dl Calcium (8.5-10.1) mg/dl Phosphorus (2.5-4.9) mg/dl Total Bilirubin (0.2-1) mg/dl Direct Bilirubin (0-0.2) mg/dl AST (15-37) U/L ALT (12-78) U/L Alkaline Phosphatase (45-117) U/L Total Creatine Kinase (26-192) U/L Total Protein (6.4-8.2) gm/dl Albumin (3.4-5.0) gm/dl Stl C. diff Tox B Gene Negative Cdiff Gene (Neg) 07/05/20 07/05/20 07/05/20 Range/Units 20:17 20:17 18:03 WBC (4.8-10.8) K/uL RBC (4.2-5.4) M/uL Hgb (12.0-16.0) g/dL Hct (37-47) % MCV (80-100) fL MCH (25-34) pg MCHC (32-36) g/dL RDW Std Deviation (36.4-46.3) fL RDW Coeff of Adolph (11.5-14.5) % Plt Count (130-400) K/uL MPV (7.4-10.4) fL Immature Gran % (Auto) % Neut % (Auto) % Lymph % (Auto) % [place] % (Auto) % Eos % (Auto) % Baso % (Auto) % Neut # (Auto) (1.4-6.5) K/uL Lymph # (Auto) (1.2-3.4) K/uL [place] # (Auto) (0.11-0.59) K/uL Eos # (Auto) (0-0.5) K/uL Baso # (Auto) (0-0.2) K/uL Immature Gran # (Auto) (0.00-0.02) K/uL Platelet Estimate (Normal) ABG pH 7.46 H (7.35-7.45) ABG pCO2 37 (35-46) mmHg ABG pO2 89 (80-95) mmHg ABG HCO3 26 H (19-24) mmol/L ABG O2 Saturation 97.0 H (90-95) % ABG Base Excess 1.8 (-9-1.8) mEq/L Jose Test Pos (Pos) Barometric Pressure 734.6 mm/Hg Oxygen Given 2 Sodium 144 (136-145) mmol/L Potassium 4.4 D (3.5-5.1) mmol/L Chloride 110 H (98-107) mmol/L Carbon Dioxide 28 (21-32) mmol/L Anion Gap 6.0 (3-11) BUN 55 H (7-18) mg/dl Creatinine 1.06 (0.6-1.2) mg/dl Est Cr Clr Drug Dosing 36.4 ml/min Est GFR ( Amer) 53.9 Est GFR (Non-Af Amer) 46.5 BUN/Creatinine Ratio 52.1 H (10-20) Glucose 221 H (70-99) mg/dl POC Glucose 225 H (70-99) mg/dl Calcium 8.5 (8.5-10.1) mg/dl Phosphorus (2.5-4.9) mg/dl Total Bilirubin 0.4 (0.2-1) mg/dl Direct Bilirubin 0.1 (0-0.2) mg/dl AST 17 (15-37) U/L ALT 10 L (12-78) U/L Alkaline Phosphatase 159 H (45-117) U/L Total Creatine Kinase 20 L (26-192) U/L Total Protein 5.1 L (6.4-8.2) gm/dl Albumin 1.8 L (3.4-5.0) gm/dl Stl C. diff Tox B Gene (Neg) Medications Administered Current Inpatient Medications Acetaminophen (Acetaminophen 325 Mg Tab) 650 mg PEG Q4H PRN PRN Reason: Pain or Fever Stop: 07/25/20 07:42 Last Admin: 07/02/20 12:44 Dose: 650 mg Documented by: Albuterol (Albuterol Hfa 8 Gm Inhaler) 2 puffs INH Q4H PRN PRN Reason: wheezing Stop: 07/23/20 19:13 Last Admin: 06/29/20 09:23 Dose: 2 puffs Documented by: Amlodipine Besylate (Amlodipine Besylate 5 Mg Tab) 10 mg PEG DAILY BRANDON Stop: 08/01/20 09:29 Last Admin: 07/06/20 09:16 Dose: 10 mg Documented by: Bumetanide (Bumetanide 1 Mg Tab) 1 mg PEG QAM BRANDON Stop: 08/01/20 09:29 Last Admin: 07/06/20 09:10 Dose: 1 mg Documented by: Chlorhexidine Gluconate (Chlorhexidine Gluconate 0.12% 480 Ml) 15 ml MT BID BRANDON Stop: 08/01/20 20:59 Last Admin: 07/06/20 09:15 Dose: 15 ml Documented by: Clobetasol Propionate (Clobetasol Propionate 0.05% Oint 15 Gm Tube) 1 appln EXT DAILY BRANDON Stop: 07/24/20 08:59 Last Admin: 07/06/20 09:11 Dose: Not Given Documented by: Dextrose (Dextrose 50% 50 Ml Syringe) 25 - 50 ml IV UD PRN; Protocol PRN Reason: Hypoglycemia Protocol Stop: 07/23/20 19:44 Last Admin: 06/29/20 21:42 Dose: 25 ml Documented by: Enteral Nutritional Formula (Fibersource Hn 1.2 Bhavin 1000 Ml Bag) 1,000 ml GT UD BRANDON; Protocol Stop: 07/31/20 07:59 Last Admin: 07/06/20 11:14 Dose: 1,000 ml Documented by: Fluticasone Propionate (Fluticasone Propionate Na Spr 16 Gm Btl) 2 sprays NA DAILY BRANDON Stop: 07/24/20 08:59 Last Admin: 07/06/20 09:11 Dose: 2 sprays Documented by: Fluticasone/Vilanterol (Fluticasone/Vilanterol 100/25mcg 14 Puffs/Inhaler) 1 puffs INH HS BRANDON Stop: 07/23/20 20:59 Last Admin: 07/05/20 21:16 Dose: 1 puffs Documented by: Glucagon (Glucagon For Inj 1 Mg Vial) 1 mg IM UD PRN; Protocol PRN Reason: Hypoglycemia Protocol Stop: 07/23/20 19:44 Glucose (Glucose 40% Gel 15 Gm Tube) 15 - 30 gm PO UD PRN; Protocol PRN Reason: Hypoglycemia Protocol Stop: 07/23/20 19:44 Glucose (Glucose 10 Tabs/Tube) 4 - 8 tabs PO UD PRN; Protocol PRN Reason: Hypoglycemia Protocol Stop: 07/23/20 19:44 Heparin Sodium (Porcine) (Heparin Sod 5,000 Unit/0.5 Ml Vial) 5,000 units SQ Q12 BRANDON Stop: 07/23/20 20:59 Last Admin: 06/29/20 20:37 Dose: 5,000 units Documented by: Hydrocortisone (Hydrocortisone 2.5% Cr 30 Gm Tube) 1 appln EXT BID PRN PRN Reason: Rash Stop: 07/23/20 19:13 Promethazine HCl 12.5 mg/ (Sodium Chloride) 50.5 mls @ 202 mls/hr IV Q6H PRN PRN Reason: Nausea And Vomiting Stop: 07/30/20 13:48 Insulin Aspart (Insulin Aspart 100 Units/Ml 3 Ml Pen) 0 units SC Q4 BRANDON Stop: 08/02/20 06:44 Last Admin: 07/06/20 16:53 Dose: 10 units Documented by: Insulin Glargine (Insulin Glargine Solostar 100 Units/Ml 3 Ml Pen) 15 units SQ DAILY BRANDON Stop: 08/05/20 08:59 Last Admin: 07/06/20 09:15 Dose: Not Given Documented by: Lansoprazole (Lansoprazole 30 Mg Soltab) 30 mg PEG DAILY BRANDON Stop: 08/01/20 09:59 Last Admin: 07/06/20 09:16 Dose: 30 mg Documented by: Loratadine (Loratadine 10 Mg Tab) 10 mg PEG DAILY BRANDON Stop: 08/01/20 09:29 Last Admin: 07/06/20 09:11 Dose: 10 mg Documented by: Lorazepam (Lorazepam 0.5 Mg Tab) 0.25 mg PO TID PRN PRN Reason: Anxiety Stop: 07/23/20 19:13 Metoclopramide HCl (Metoclopramide Hcl 5 Mg Tablet) 5 mg PO BIDM [facility] Stop: 07/24/20 07:59 Last Admin: 07/06/20 16:44 Dose: 5 mg Documented by: Metoprolol Tartrate (Metoprolol Tartrate 25 Mg Tab) 12.5 mg PO DAILY [facility] Stop: 07/23/20 19:13 Last Admin: 07/06/20 09:13 Dose: 12.5 mg Documented by: Miconazole Nitrate (Miconazole Nitrate Powder 43 Gm) 1 appln EXT PRN PRN PRN Reason: Affected Skin Folds Stop: 07/25/20 11:02 Last Admin: 07/06/20 09:31 Dose: 1 appln Documented by: Miscellaneous (Azelastine Order Awaiting Action) 1 ea N/A QS [facility] Stop: 07/24/20 00:00 Last Admin: 07/06/20 16:44 Dose: Not Given Documented by: Miscellaneous (Carbohydrates For Hypoglycemia ) 15 - 30 gm PO UD PRN PRN Reason: Hypoglycemia Treatment Stop: 07/23/20 19:44 Miscellaneous Information (Pharmacy Glycemic Mgmt Consult) 1 ea N/A UD PRN PRN Reason: Consult Stop: 08/04/20 17:35 Montelukast Sodium (Montelukast Sodium 10 Mg Tablet) 10 mg PEG QPM [facility] Stop: 07/23/20 20:59 Last Admin: 07/05/20 21:17 Dose: 10 mg Documented by: Multivitamins/Minerals (Cerovite Adv Formula Tab) 1 tab PO DAILY [facility] Stop: 07/24/20 08:59 Last Admin: 07/06/20 09:16 Dose: 1 tab Documented by: Nystatin (Nystatin Cr 15 Gm Tube) 1 appln EXT BID [facility] Stop: 07/23/20 20:59 Last Admin: 07/06/20 09:15 Dose: Not Given Documented by: Ondansetron HCl (Ondansetron Inj 2 Mg/Ml 2 Ml Vial) 4 mg IV Q6H PRN PRN Reason: Nausea Stop: 07/28/20 16:21 Last Admin: 07/06/20 09:55 Dose: 4 mg Documented by: Petrolatum (Butt Paste (Zinc Oxide 16%) 171 Appln/57 Gm Jar) 1 appln EXT TID [facility]; Protocol Stop: 07/23/20 20:59 Last Admin: 07/06/20 15:04 Dose: 1 appln Documented by: (1) Urinary tract infection Hematuria presence: without hematuria Urinary tract infection type: site unspecified Qualified Code(s): N39.0 - Urinary tract infection, site not specified
[2020-07-06 08:20] LABS: BUN Creatinine Ratio 51.6 (10-20); Calcium 8.2 mg/dl (8.5-10.1); Creatinine Clr Calc Pharmacy 39.8 ml/min; Est GFR (African American) 59.3; Est GFR (Non-African American) 51.1; Phosphorus 2.7 mg/dl (2.5-4.9); Potassium 4.3 mmol/L (3.5-5.1)
[2020-07-06 08:34] LABS: Basophils # (auto) 0.02 K/uL (0-0.2); Basophils % (auto) 0.3 %; Eosinophils # (auto) 0.13 K/uL (0-0.5); Eosinophils % (auto) 1.7 %; Hematocrit (blood only) 31.8 % (37-47); Hemoglobin 10.2 g/dL (12.0-16.0); Immature Granulocytes # (auto) 0.05 K/uL (0.00-0.02); Immature Granulocytes % (auto) 0.7 %; Lymphocytes # (auto) 1.43 K/uL (1.2-3.4); Lymphocytes % (auto) 19.1 %; Mean Corpuscular Hemoglobin 31.2 pg (25-34); Mean Corpuscular Hgb Conc 32.1 g/dL (32-36); Mean Corpuscular Volume 97.2 fL (80-100); Mean Platelet Volume 13.6 fL (7.4-10.4); Monocytes # (auto) 0.47 K/uL (0.11-0.59); Monocytes % (auto) 6.3 %; Neutrophils % (auto) 71.9 %; Platelet Count 120 K/uL (130-400); Platelet Estimate Decreased (Normal); RDW Coefficient of Variation 16.6 % (11.5-14.5); RDW Standard Deviation 58.6 fL (36.4-46.3); Red Blood Count 3.27 M/uL (4.2-5.4)
[2020-07-06] MEDS ORDERED: INSULIN GLARGINE SOLOSTAR 100 UNITS/ML 3 ML PEN SQ SCH (09:00)
[2020-07-06] MEDS: CALCIUM CARBONATE 500 MG CHEWABLE TAB PO SCH (09:09)
[2020-07-06] MEDS: BUTT PASTE (ZINC OXIDE 16%) 171 APPLN/57 GM JAR EXT SCH ×3 (09:09→21:21)
[2020-07-06] MEDS: METOCLOPRAMIDE HCL 5 MG TABLET PO SCH ×2 (09:10→16:44)
[2020-07-06] MEDS: BUMETANIDE 1 MG TAB PEG SCH (09:10)
[2020-07-06] MEDS: CLOBETASOL PROPIONATE 0.05% OINT 15 GM TUBE EXT SCH (09:11)
[2020-07-06] MEDS: LORATADINE 10 MG TAB PEG SCH (09:11)
[2020-07-06] MEDS: FLUTICASONE PROPIONATE NA SPR 16 GM BTL SCH (09:11)
[2020-07-06] MEDS: METOPROLOL TARTRATE 25 MG TAB PO SCH (09:13)
[2020-07-06] MEDS: CHLORHEXIDINE GLUCONATE 0.12% 480 ML MT SCH ×2 (09:15→21:22)
[2020-07-06] MEDS: NYSTATIN CR 15 GM TUBE EXT SCH ×2 (09:15→21:22)
[2020-07-06] MEDS: INSULIN GLARGINE SOLOSTAR 100 UNITS/ML 3 ML PEN SQ SCH (09:15)
[2020-07-06] MEDS: LANSOPRAZOLE 30 MG SOLTAB PEG SCH (09:16)
[2020-07-06] MEDS: CEROVITE ADV FORMULA TAB PO SCH (09:16)
[2020-07-06] MEDS: amLODIPine BESYLATE 5 MG TAB PEG SCH (09:16)
[2020-07-06] MEDS: MICONAZOLE NITRATE POWDER 43 GM EXT PRN (09:31)
[2020-07-06] MEDS: ONDANSETRON INJ 2 MG/ML 2 ML VIAL IV PRN (09:55)
[2020-07-06] MEDS: FIBERSOURCE HN 1.2 CAL 1000 ML BAG GT SCH (11:14)
--- NOTE | 2020-07-06 12:20 | Pharmacy Report ---
Pharmacy Glycemic Short Note 2 - Date of Service July 06, 2020 - Glycemic Short BSG Results (Last 24 hours): 07/05/20 07/05/20 07/05/20 12:11 15:46 18:03 Glucose 258 H POC Glucose 285 H 225 H 07/05/20 07/05/20 07/06/20 20:17 21:13 00:09 Glucose 221 H POC Glucose 220 H 127 H 07/06/20 07/06/20 07/06/20 06:20 07:10 07:26 Glucose 112 H POC Glucose 118 H 115 H 07/06/20 11:41 Glucose POC Glucose 159 H OUTPATIENT ANTIDIABETIC REGIMEN: * Basaglar 4 units daily * A1c 6.1% 07/03/20 ASSESSMENT: * Ms. Christensen's BSGs were significantly elevated over the previous 24-48 hrs- patient was receiving tube feeds without carb coverage * Received 25 units of lantus yesterday + 23 units of correctional insulin, tube feeds held overnight and fasting was down to 115 mg/dL this morning * TF resumed this morning back at 15 mL/hr, will adjust insulin regimen to q4H as this will better align with novolog activity time. * Will slightly reduce lantus this morning with additional tonight if needed PLAN FOR INPATIENT GLYCEMIC CONTROL: * Hold outpatient oral diabetes medications * Basal insulin * Lantus 15 units SQ x1, scale for pm 0-10 units * Bolus insulin * NovoLog per scale ACHS or Q6hrs while NPO * Goal Range: Low 120 mg/dL - High 150 mg/dL * Correction Factor: 15 mg/dL/unit * Nutritional / Prandial insulin per carb ratio of 1 unit per 10 grams CHO consumed
[2020-07-06] MEDS: FLUTICASONE/VILANTEROL 100/25MCG 14 PUFFS/INHALER INH SCH (21:21)
[2020-07-06] MEDS: MONTELUKAST SODIUM 10 MG TABLET PEG SCH (21:23)
[2020-07-06 22:36] LABS: BUN Creatinine Ratio 41.7 (10-20); Calcium 8.4 mg/dl (8.5-10.1); Creatinine Clr Calc Pharmacy 33.7 ml/min; Est GFR (African American) 48.3; Est GFR (Non-African American) 41.7; Phosphorus 3.2 mg/dl (2.5-4.9); Potassium 4.5 mmol/L (3.5-5.1)
[2020-07-07] MEDS: INSULIN ASPART 100 UNITS/ML 3 ML PEN SC SCH ×4 (00:06→12:45)
[2020-07-07 08:26] LABS: BUN Creatinine Ratio 42.7 (10-20); Calcium 8.6 mg/dl (8.5-10.1); Creatinine Clr Calc Pharmacy 33.2 ml/min; Est GFR (African American) 46.9; Est GFR (Non-African American) 40.4; Phosphorus 2.9 mg/dl (2.5-4.9); Potassium 4.2 mmol/L (3.5-5.1)
[2020-07-07] MEDS: METOPROLOL TARTRATE 25 MG TAB PO SCH (08:44)
[2020-07-07] MEDS: CHLORHEXIDINE GLUCONATE 0.12% 480 ML MT SCH (08:46)
[2020-07-07] MEDS: CEROVITE ADV FORMULA TAB PO SCH (08:46)
[2020-07-07] MEDS: LORATADINE 10 MG TAB PEG SCH (08:46)
[2020-07-07] MEDS: LANSOPRAZOLE 30 MG SOLTAB PEG SCH (08:46)
[2020-07-07] MEDS: amLODIPine BESYLATE 5 MG TAB PEG SCH (08:46)
[2020-07-07] MEDS: INSULIN GLARGINE SOLOSTAR 100 UNITS/ML 3 ML PEN SQ SCH (08:47)
[2020-07-07] MEDS: FLUTICASONE PROPIONATE NA SPR 16 GM BTL SCH (08:49)
[2020-07-07] MEDS: CLOBETASOL PROPIONATE 0.05% OINT 15 GM TUBE EXT SCH (08:49)
[2020-07-07] MEDS: METOCLOPRAMIDE HCL 5 MG TABLET PO SCH (08:50)
[2020-07-07] MEDS: BUTT PASTE (ZINC OXIDE 16%) 171 APPLN/57 GM JAR EXT SCH ×2 (08:50→12:49)
[2020-07-07] MEDS: NYSTATIN CR 15 GM TUBE EXT SCH (08:50)
[2020-07-07] MEDS: BUMETANIDE 1 MG TAB PEG SCH (08:51)
--- NOTE | 2020-07-07 12:34 | Hospitalist Progress Note ---
Date of Service July 07, 2020 Assessment & Plan (1) Esophageal dysmotility: Under care of [facility] Speech therapy evaluation obtained Failed bedside swallowing evaluation and did not go for barium swallow due to risk of aspiration CT scan of the abdomen pelvis unremarkable [facility] consulted for possible EGD and dilatation with history of esophageal dilatation in the past Has had esophageal dilation in the past without any improvement on swallowing Her swallowing is seems to be cricopharyngeal and likely not to get any better with esophageal dilatation as per GI Plan to have reevaluation by speech since the patient is getting better from infection The problem of swallowing and aspiration persisted, the next option - PEG tube placement if everyone agrees on that Ongoing dysphagia Seems to be secondary to upper esophageal/pharyngeal issue Dysphagia did not improve with prior esophageal dilatation Reevaluated from speech therapy If dysphagia persist with significant aspiration then the patient will need to have PEG tube placement for feeding Discussed with the patient and she is agreeable to have a PEG tube Discussed with the family members especially the son and the the patient herself and the son wanted to have the PEG tube placement Status post PEG tube placement on 06/30/2020 Nutrition consult for PEG tube feeding, tube feeds started, tolerates well Keep head of the bed elevated while patient using tube feeds. Continue chlorhexidine mouthwash twice daily due to aspiration risk. Change Reglan to as needed. Use Fibersource HN tube feed, at 60 mils per hour continuous. Continue 150 mL free water flush every 4 hours. Titrate flushes as needed. Recommend BMP and phosphorus level in 2 to 3 days. Further evaluation by dietitian at [facility] Hypophosphatemia -Concern for possible refeeding syndrome, replete and monitor phosphorus level -Recommend to have rechecked phosphorus level after discharge within the next 2 days Hyperkalemia, hyperglycemia -Give Kayexalate, recheck level -Insulin management by pharmacy -After recheck of her blood work, patient was hyperglycemic and hyperkalemic, tube feeds stopped overnight -Discussed with dietitian today, July 06, who recommends to restart tube feeds, not to change the formula, and monitor BMP and phosphorus level. Stop Calcium carbonate which could be causing low phosphorus levels. Hyperkalemia may be due to frequent repletion of electrolytes. We will continue to closely monitor. -BMP rechecked again in July 06 and today, October 13 a.m. BMP unremarkable -Recommend to recheck BMP and phosphorus level in 2 to 3 days (2) Urinary tract infection: Presented with anorexia and nausea with vomiting Noted to have high white count of 17,000 with urine examination suggestive of infection Did not have any fever at presentation and tachycardia did not persist. Doubt any sepsis Urine has been sent for culture and blood has been sent for culture too Started with intravenous ceftriaxone Covid-Negative Ceftriaxone has been discontinued Ertapenem has been discontinued and ceftriaxone has been restarted Denies any symptoms DC'ed ceftriaxone Possible aspiration pneumonia Has history of esophageal dysmotility and as below Antibiotic has been changed to intravenous ertapenem Clinically a lot better and no evidence of lobar consolidation De-escalate antibiotic to intravenous ceftriaxone for now No more cough and/or shortness of breath Sacral decubiti ulcer stage III Dry and does not look like acutely infected, on admission Continue with wound care (3) Acute kidney injury superimposed on chronic kidney disease: Has history of chronic kidney disease stage IV Has acute on chronic kidney disease secondary to dehydration and use of diuretics and lisinopril held diuretics initially Received adequate amount of intravenous fluid Creatinine has been improving restarted diuretics (4) (HFpEF) heart failure with preserved ejection fraction: Has history of atrial fibrillation and heart failure with preserved EF No signs of fluid overload received cautious amount of intravenous fluid for acute dehydration Held diuretics initially Event of fluid overload, diuretics re-started Mild elevation of troponin Acute secondary to acute on chronic kidney disease EKG shows atrial fibrillation with right axis deviation, inferior infarct age undetermined lateral T wave inversion Doubt any ACS will repeated troponin, Second set of troponin improved Troponin elevation is secondary to acute on chronic kidney disease No ACS of any kind (5) Type 2 diabetes mellitus: Continue current medications Her on SSI (6) Asthma, moderate: No acute symptoms (7) Chronic a-fib: Chronic atrial fibrillation Rate is controlled now As per the epic note she has not been on any Coumadin CODE STATUS: Full Discussed with the [id number] and son Plan to discharge to [facility] tomorrow Admission and Anticipated Discharge Date Admission Date: June 23, 2020 Subjective Patient is lying in bed, in no acute distress, resting comfortably. Currently has no complaints. No fevers, chills, chest pain. Encouraged incentive spirometer use. Review of Systems Review of Systems: All systems reviewed & are unremarkable except as noted in HPI & below Constitutional: no fever and no chills Respiratory: no cough and no dyspnea Cardiovascular: no chest pain and no palpitations Gastrointestinal: no abdominal pain, no nausea and no vomiting Physical Exam Physical Exam: Physical Exam: Elderly female,lying in bed comfortably, ongoing tube feeds started Constitutional: + thin; no acute distress, + chronically ill appearing Eyes: PERRL, EOMI, conjunctivae normal, anicteric sclerae ENMT: external ear and nose normal, oropharynx normal Neck: trachea midline, no thyromegaly Respiratory: normal respiratory effort; no respiratory distress Auscultation: + diminished lung sounds, no wheezes, rhonchi, crackles noted Cardiovascular: Rate/Rhythm: + abnormal rate and + abnormal rhythm Heart Sounds: + murmur (2/6 ESM over precordium) Gastrointestinal (Abdomen): Inspection/Auscultation: abdomen normal to inspection and normal bowel sounds; abdomen not distended, nontender. percussion/Palpation: abdomen soft Status post PEG tube placement Musculoskeletal: No acute arthritis in any joints Neurologic: moves all extremities; no focal motor deficits, Alert awake and oriented x3, Psychiatric: A+Ox3, appears somewhat depressed Results & Data Results & Data ([facility]) Vital Signs (Past 12 Hours) Vital Signs Temp Pulse Pulse Resp BP Pulse Ox 07/07/20 11:41 36.5 C 84 18 116/77 95 07/07/20 08:02 77 07/07/20 06:58 36.8 C 78 20 128/73 95 07/07/20 04:26 36.8 C 85 20 130/54 L 93 Laboratory Results 07/07/20 07/07/20 07/07/20 Range/Units 11:25 07:23 07:11 Sodium 143 (136-145) mmol/L Potassium 4.2 (3.5-5.1) mmol/L Chloride 109 H (98-107) mmol/L Carbon Dioxide 29 (21-32) mmol/L Anion Gap 5.0 (3-11) BUN 51 H (7-18) mg/dl Creatinine 1.19 (0.6-1.2) mg/dl Est Cr Clr Drug Dosing 33.2 ml/min Est GFR ( Amer) 46.9 Est GFR (Non-Af Amer) 40.4 BUN/Creatinine Ratio 42.7 H (10-20) Glucose 166 H (70-99) mg/dl POC Glucose 156 H 175 H (70-99) mg/dl Calcium 8.6 (8.5-10.1) mg/dl Phosphorus 2.9 (2.5-4.9) mg/dl 07/07/20 07/07/20 07/06/20 Range/Units 05:07 00:06 21:58 Sodium 143 (136-145) mmol/L Potassium 4.5 (3.5-5.1) mmol/L Chloride 111 H (98-107) mmol/L Carbon Dioxide 29 (21-32) mmol/L Anion Gap 3.0 (3-11) BUN 48 H (7-18) mg/dl Creatinine 1.16 (0.6-1.2) mg/dl Est Cr Clr Drug Dosing 33.7 ml/min Est GFR ( Amer) 48.3 Est GFR (Non-Af Amer) 41.7 BUN/Creatinine Ratio 41.7 H (10-20) Glucose 243 H (70-99) mg/dl POC Glucose 236 H 273 H (70-99) mg/dl Calcium 8.4 L (8.5-10.1) mg/dl Phosphorus 3.2 (2.5-4.9) mg/dl 07/06/20 07/06/20 Range/Units 21:18 16:45 Sodium (136-145) mmol/L Potassium (3.5-5.1) mmol/L Chloride (98-107) mmol/L Carbon Dioxide (21-32) mmol/L Anion Gap (3-11) BUN (7-18) mg/dl Creatinine (0.6-1.2) mg/dl Est Cr Clr Drug Dosing ml/min Est GFR ( Amer) Est GFR (Non-Af Amer) BUN/Creatinine Ratio (10-20) Glucose (70-99) mg/dl POC Glucose 258 H 252 H (70-99) mg/dl Calcium (8.5-10.1) mg/dl Phosphorus (2.5-4.9) mg/dl (1) Urinary tract infection Hematuria presence: without hematuria Urinary tract infection type: site unspecified Qualified Code(s): N39.0 - Urinary tract infection, site not specified
--- NOTE | 2020-07-07 13:07 | Discharge Summary ---
Date of Service July 07, 2020 Admission HPI Per Admitting Provider She is an 89-year-old female with significant past medical history of CAD, CHF, atrial fibrillation, CKD stage IV with anemia, diabetes with PVD apparently was sent in from [facility] with multitude of symptoms. The main complaints seems to be failure to thrive with weight loss and decreased oral intake with decreasing appetite. Also noted to have nausea with vomiting and fever with shortness of breath. She has been a poor historian and she has been telling that she has shortness of breath denies any other symptoms. She has seen by her primary care this morning at [facility] and following discussion with the POA , her son for further evaluation. She denies any chest pain and/or palpitation, any abdominal pain, denies any problem with urine and her bowel habit, noted to have fever and some sweating, has been very weak and lethargic. She did not have any neurological symptoms. She was noted to have very high white count with a UA suggestive of infection. She also has severe dehydration and from that point she was admitted to medical telemetry unit for continuation of care. Admission Exam Per Admitting Provider Physical Exam: Lying in bed comfortably Constitutional: + thin; no acute distress and not ill appearing Eyes: PERRL, conjunctivae normal, anicteric sclerae ENMT: external ear and nose normal, oropharynx normal Neck: trachea midline, no thyromegaly Respiratory: normal respiratory effort; no respiratory distress Auscultation: lungs clear to auscultation bilaterally Cardiovascular: Rate/Rhythm: + abnormal rate and + abnormal rhythm Heart Sounds: + murmur (2/6 ESM over precordium) Gastrointestinal (Abdomen): Inspection/Auscultation: abdomen normal to inspection and normal bowel sounds; abdomen not distended Percussion/Palpation: abdomen soft Musculoskeletal: No acute arthritis involving any joints Neurologic: moves all extremities; no focal motor deficits Lymphatic: no cervical or axillary lymphadenopathy Principal Diagnosis UTI JOANN Dysphagia, aspiration Status post PEG tube placement, NG tube feeds started Discharge Exam Physical Exam: Elderly female,lying in bed comfortably, ongoing tube feeds started Constitutional: + thin; no acute distress, + chronically ill appearing Eyes: PERRL, EOMI, conjunctivae normal, anicteric sclerae ENMT: external ear and nose normal, oropharynx normal Neck: trachea midline, no thyromegaly Respiratory: normal respiratory effort; no respiratory distress Auscultation: + diminished lung sounds, no wheezes, rhonchi, crackles noted Cardiovascular: Rate/Rhythm: + abnormal rate and + abnormal rhythm Heart Sounds: + murmur (2/6 ESM over precordium) Gastrointestinal (Abdomen): Inspection/Auscultation: abdomen normal to inspection and normal bowel sounds; abdomen not distended, nontender. percussion/Palpation: abdomen soft Status post PEG tube placement Musculoskeletal: No acute arthritis in any joints Neurologic: moves all extremities; no focal motor deficits, Alert awake and oriented x3, Psychiatric: A+Ox3, appears somewhat depressed Discharge Data Allergies Allergy/AdvReac Type Severity Reaction Status Date / Time clofibrate Allergy Severe SWELLING Verified 06/23/20 18:17 rabeprazole Allergy Intermediate SOB/COUGHING Verified 06/23/20 18:17 AND THROAT FELT TIGHT/ABD. CRAMPING fexofenadine Allergy Mild RASH Verified 06/23/20 18:17 Fibrate Anti-Lipidemics Allergy Mild SWELLING Verified 06/23/20 18:17 fluvastatin Allergy Mild HIVES Verified 06/23/20 18:17 metformin Allergy Mild URINARY Verified 06/23/20 18:17 FREQUENCY/RASH/ITCH morphine Allergy Mild ITCHY/HIVES Verified 06/23/20 18:17 moxifloxacin Allergy Mild ITCHY/NAUSE Verified 06/23/20 18:17 A Penicillins Allergy Mild HIVES Verified 06/25/20 13:30 Quinolones Allergy Mild RASH Verified 06/23/20 18:17 amoxicillin Allergy Unknown Unknown Verified 06/23/20 18:17 chlorpropamide Allergy Unknown UNKNOWN Verified 06/23/20 18:17 NSAIDS (Non-Steroidal Allergy Unknown UNKNOWN Verified 06/23/20 18:17 Anti-Inflamma ranitidine Allergy Unknown Unknown Verified 06/23/20 18:17 Sulfa (Sulfonamide Allergy Unknown UNKNOWN Verified 06/23/20 18:17 Antibiotics) blue dye AdvReac Mild MYALGIAS Verified 06/23/20 18:17 AND CRAMPS codeine AdvReac Mild FEELS Verified 06/23/20 18:17 "HIGH" ON/ITCHING dexlansoprazole AdvReac Mild MYALGIAS Verified 06/23/20 18:17 AND CRAMPS gemfibrozil AdvReac Mild ABDOMINAL Verified 06/23/20 18:17 CRAMPS AND DIZZINESS lisinopril AdvReac Mild COUGH Verified 06/23/20 18:17 lorazepam AdvReac Mild 0 Verified 06/23/20 18:17 rofecoxib AdvReac Mild INDIGESTION Verified 06/23/20 18:17 Consultations 06/25/20 15:05 Consult Gastroenterology Routine Procedures Performed Operation Date: 06/30/20 08:30 Actual Procedures p EGD Gastric Tube Placement - Mera Vegas MD Ordered Studies 06/23/20 21:08 CT abd pelvis wo con Urgent IMPRESSION: 1. No evidence of bowel obstruction. No evidence of free air 2. Advanced atherosclerotic calcification 3. Bilateral lower lobe pulmonary airspace opacity suspicious for pneumonia. Given the appearance, a viral pneumonia such as Covid-19 must be considered within the differential Hospital Course (1) Esophageal dysmotility: Under care of [facility] Speech therapy evaluation obtained Failed bedside swallowing evaluation and did not go for barium swallow due to risk of aspiration CT scan of the abdomen pelvis unremarkable [facility] consulted for possible EGD and dilatation with history of esophageal dilatation in the past Has had esophageal dilation in the past without any improvement on swallowing Her swallowing is seems to be cricopharyngeal and likely not to get any better with esophageal dilatation as per GI Plan to have reevaluation by speech since the patient is getting better from infection The problem of swallowing and aspiration persisted, the next option - PEG tube placement if everyone agrees on that Ongoing dysphagia Seems to be secondary to upper esophageal/pharyngeal issue Dysphagia did not improve with prior esophageal dilatation Reevaluated from speech therapy If dysphagia persist with significant aspiration then the patient will need to have PEG tube placement for feeding Discussed with the patient and she is agreeable to have a PEG tube Discussed with the family members especially the son and the the patient herself and the son wanted to have the PEG tube placement Status post PEG tube placement on 06/30/2020 Nutrition consult for PEG tube feeding, tube feeds started, tolerates well Keep head of the bed elevated while patient using tube feeds. Continue chlorhexidine mouthwash twice daily due to aspiration risk. Change Reglan to as needed. Use Fibersource HN tube feed, at 60 mils per hour continuous. Continue 150 mL free water flush every 4 hours. Titrate flushes as needed. Recommend BMP and phosphorus level in 2 to 3 days. Further evaluation by dietitian at [facility] recommended Insulin requirements have changed since patient been on tube feeds, please review in detail below DISCHARGE RECOMMENDATIONS: If continues on Fibersource tube feeds at 60 ml/hr: - Lantus 15 units SQ QAM - Novolog every 6 hour check: use sliding scale below: Blood Sugar 70-150 administer 3 units Blood Sugar 151-200 administer 5 units Blood Sugar 201-250 administer 7 units Blood Sugar 251-300 administer 9 units Blood Sugar 301-350 administer 11 units Blood Sugar 351-400 administer 13 units Blood Sugar >400 administer 15 units and call MD If NOT ON Fibersource, then give only Lantus 5 units SQ QAM and no Novolog. Hypophosphatemia -Concern for possible refeeding syndrome, replete and monitor phosphorus level -Recommend to have rechecked phosphorus level after discharge within the next 2 days Hyperkalemia, hyperglycemia -Give Kayexalate, recheck level -Insulin management by pharmacy -After recheck of her blood work, patient was hyperglycemic and hyperkalemic, tube feeds stopped overnight -Discussed with dietitian today, July 06, who recommends to restart tube feeds, not to change the formula, and monitor BMP and phosphorus level. Stop Calcium carbonate which could be causing low phosphorus levels. Hyperkalemia may be due to frequent repletion of electrolytes. We will continue to closely monitor. -BMP rechecked again in July 06 and today, July 07 a.m. BMP unremarkable -Recommend to recheck BMP and phosphorus level in 2 to 3 days (2) Urinary tract infection: Presented with anorexia and nausea with vomiting Noted to have high white count of 17,000 with urine examination suggestive of infection Did not have any fever at presentation and tachycardia did not persist. Doubt any sepsis Urine has been sent for culture and blood has been sent for culture too Started with intravenous ceftriaxone Covid-Negative Ceftriaxone has been discontinued Ertapenem has been discontinued and ceftriaxone has been restarted Denies any symptoms DC'ed ceftriaxone Possible aspiration pneumonia Has history of esophageal dysmotility and as below Antibiotic has been changed to intravenous ertapenem Clinically a lot better and no evidence of lobar consolidation De-escalate antibiotic to intravenous ceftriaxone for now No more cough and/or shortness of breath Sacral decubiti ulcer stage III Dry and does not look like acutely infected, on admission Continue with wound care (3) Acute kidney injury superimposed on chronic kidney disease: Has history of chronic kidney disease stage IV Has acute on chronic kidney disease secondary to dehydration and use of diuretics and lisinopril held diuretics initially Received adequate amount of intravenous fluid Creatinine has been improving restarted diuretics (4) (HFpEF) heart failure with preserved ejection fraction: Has history of atrial fibrillation and heart failure with preserved EF No signs of fluid overload received cautious amount of intravenous fluid for acute dehydration Held diuretics initially Event of fluid overload, diuretics re-started Mild elevation of troponin Acute secondary to acute on chronic kidney disease EKG shows atrial fibrillation with right axis deviation, inferior infarct age undetermined lateral T wave inversion Doubt any ACS will repeated troponin, Second set of troponin improved Troponin elevation is secondary to acute on chronic kidney disease No ACS of any kind (5) Type 2 diabetes mellitus: Continue current medications Her on SSI Insulin dose was adjusted by glycemic pharmacist given that her insulin requirements are now higher Please see detailed instructions above (6) Asthma, moderate: No acute symptoms (7) Chronic a-fib: Chronic atrial fibrillation Rate is controlled now As per the epic note she has not been on any Coumadin CODE STATUS: Full Discussed with the [id number] and son Plan to discharge to [facility] today Total Time Total Time Spent Total Time Spent (In Minutes): 40 Total Time Includes: Examination of the Patient, Discharge Planning, Medication Reconciliation and Communication With Other Providers Discharge Plan Discharge Items Patient Disposition: Transfer Intermediate Fac Reason For Visit: UTI, JOANN Discharge Diagnosis: UTI JOANN Dysphagia, aspiration Status post PEG tube placement, NG tube feeds started Condition on Discharge: Good Activity: Per Instructions section Non-emergency contact: Primary Care Provider Call non-emergency contact if: you have any medication questions and your symptoms worsen Follow-up/Referrals: Agustina Mock DO [Primary Care Provider] - Diet: Other - See Diet Comment Diet Comment: Patient should be n.p.o. at all times as she is very high aspiration risk, continue tube feeds 60 mL per hour, 150 mL of free water every 4 hours, titrate per discretion of dietitian at [facility] Attending Provider Instructions: Patient should be n.p.o. at all times as she is very high aspiration risk. PEG tube was placed, and patient was started on tube feeds, Fibersource HN, continue at 60 mils per hour. Use 150 mils free water every 4 hours. Titrate flushes as needed. Further evaluation by dietitian at [facility] recommended. Keep head of bed elevated. Continue chlorhexidine mouthwash twice daily due to aspiration risk. Insulin requirements have changed since patient been on tube feeds, please review in detail below DISCHARGE RECOMMENDATIONS: If continues on Fibersource tube feeds at 60 ml/hr: - Lantus 15 units SQ QAM - Novolog every 6 hour check: use sliding scale below: Blood Sugar 70-150 administer 3 units Blood Sugar 151-200 administer 5 units Blood Sugar 201-250 administer 7 units Blood Sugar 251-300 administer 9 units Blood Sugar 301-350 administer 11 units Blood Sugar 351-400 administer 13 units Blood Sugar >400 administer 15 units and call MD If NOT ON Fibersource, then give only Lantus 5 units SQ QAM and no Novolog. Pending Studies at Discharge: No Stand-Alone Forms: My [facility] Skilled Items Patient informed of condition?: Yes DNR: No Discharge Level of Care: Skilled Communicable Disease: No Discharge Prognosis: Stable Lines: None Urinary Catheter: No Medications and DC Order Prescriptions: New metoclopramide HCl 5 mg Tablet 5 mg PO BIDM PRN (Reason: nausea and vomiting) Qty: 10 RF: 0 chlorhexidine gluconate 0.12 % Mouthwash 15 ml MT BID 30 Days Qty: 118 RF: 0 Lantus Solostar U-100 Insulin 100 unit/mL (3 mL) Insulin Pen 15 unit subcut DAILY 30 Days Qty: 4.5 RF: 0 insulin aspart U-100 [Novolog Flexpen U-100 Insulin] 100 unit/mL (3 mL) In sulin Pen See Rx Instructions .ROUTE .COMPLEX 10 Days Qty: 3 RF: 0 Boudreauxs Butt Paste 16 % Ointment 1 applic EXT TID 14 Days Qty: 2016 RF: 0 Desenex 2 % Powder 1 applic EXT PRN PRN (Reason: rash) 30 Days Qty: 43 RF: 0 nystatin 100,000 unit/gram Cream 1 applic EXT BID Qty: 30 RF: 0 Continued montelukast [Singulair] 10 mg tablet 10 mg PO DAILY RF: 0 amlodipine 5 mg tablet 5 mg PO DAILY RF: 0 acetaminophen 500 mg Tablet 500 mg PO HS MDD 3000 MG APAP/24 HOURS RF: 0 aspirin 81 mg Tablet,Chewable 81 mg PO DAILY RF: 0 azelastine 0.15 % (205.5 mcg) spray,non-aerosol 2 spray INTRANASAL AMHS RF: 0 ipratropium-albuterol 0.5 mg-3 mg(2.5 mg base)/3 mL solution for nebulization 3 ml INHALATION BID RF: 0 omeprazole 40 mg capsule,delayed release(DR/EC) 40 mg PO QAM RF: 0 mirtazapine 30 mg tablet 30 mg PO HS RF: 0 bumetanide 1 mg tablet 1 mg PO DAILY RF: 0 sodium chloride [Saline Nasal] 0.65 % Aerosol,[place] 2 spray INTRANASAL DIRECTED RF: 0 Eucerin Cream 1 applic TOPICAL BID RF: 0 Vitron-C 65 mg iron- 125 mg Tablet,Delayed Release (Dr/Ec) 1 tab PO DAILY RF: 0 Breo Ellipta 200-25 mcg/dose blister with device 1 inh INHALATION DAILY RF: 0 acetaminophen 325 mg Tablet 650 mg PO Q4H MDD 3000 MG APAP/24 HOURS PRN (Reason: Fever Or Pain) RF: 0 ipratropium-albuterol 0.5 mg-3 mg(2.5 mg base)/3 mL solution for nebulization 3 ml INHALATION Q4H PRN (Reason: Wheezing) RF: 0 ondansetron HCl [Zofran] 4 mg Tablet 4 mg PO Q6H PRN (Reason: Nausea/Vomiting) RF: 0 Aroma Therapy See Rx Instructions .ROUTE .COMPLEX RF: 0 sennosides-docusate sodium [Senna-S] 8.6-50 mg Tablet 2 tab PO BID RF: 0 allopurinol 100 mg tablet 200 mg PO DAILY RF: 0 fluticasone propionate [Flonase Allergy Relief] 50 mcg/actuation [place],Suspension 2 spray INTRANASAL DAILY RF: 0 loratadine 10 mg Tablet 10 mg PO DAILY RF: 0 Changed losartan 25 mg tablet 12.5 mg PO DAILY Qty: 0 RF: 0 metoprolol tartrate 25 mg Tablet 12.5 mg PO QAM Qty: 0 RF: 0 Discontinued alum-mag hydroxide-simeth [Antacid Anti-Gas] 200-200-20 mg/5 mL suspension 30 ml PO ACHS RF: 0 isosorbide dinitrate 30 mg tablet 30 mg PO QAM RF: 0 polyethylene glycol 3350 17 gram/dose powder 17 g PO DAILY RF: 0 Basaglar KwikPen U-100 Insulin 100 unit/mL (3 mL) insulin pen 4 unit subcut DAILY RF: 0 Discharge Orders: Discharge Order (Routine); Ordered 07/07/20 Ordered By: Juan Ramos Admission Data Admit Date/Time: 06/23/20 17:29 Attending Provider: Juan Ramos Admit Provider: Jamal Salas Primary Care Provider: Agustina Mock Other Providers: Amy Johns ; Jaspreet Pennington ; Jamal Salas Other Interventions: Discharge Summary Assessment (RN) Last Done: 06/30/20 10:00
--- NOTE | 2020-07-07 13:14 | Pharmacy Report ---
Pharmacy Glycemic Short Note 2 - Date of Service July 07, 2020 - Glycemic Short BSG Results (Last 24 hours): 07/06/20 07/06/20 07/06/20 16:45 21:18 21:58 Glucose 243 H POC Glucose 252 H 258 H 07/07/20 07/07/20 07/07/20 00:06 05:07 07:11 Glucose 166 H POC Glucose 273 H 236 H 07/07/20 07/07/20 07:23 11:25 Glucose POC Glucose 175 H 156 H OUTPATIENT ANTIDIABETIC REGIMEN: * Basaglar 4 units daily * A1c 6.1% 07/03/20 ASSESSMENT: * Ms. Christensen's tube feeds were resumed yesterday which has resulted in elevated BSGs. * Patient could use tube feeds with lower carbs such as Peptamen bariatric. * Patient received total of 51 units of insulin yesterday: 15 units of basal and 36 units of bolus. * With current tube feeds, she can use basal Lantus 15 units daily in the morn ing but dose should be lowered if tube feeds are stopped. See recommendations below. * Use Novolog sliding scale while patient continues on Fibersource tube feeds- see recommendations below. PLAN FOR INPATIENT GLYCEMIC CONTROL: * Basal insulin * Lantus 15 units SQ daily in the AM * Bolus insulin * NovoLog per scale ACHS or Q6hrs while NPO * Goal Range: Low 120 mg/dL - High 150 mg/dL * Correction Factor: 15 mg/dL/unit * Nutritional / Prandial insulin per carb ratio of 1 unit per 7 grams CHO consumed. DISCHARGE RECOMMENDATIONS: * If continues on Fibersource tube feeds at 60 ml/hr: - Lantus 15 units SQ QAM - Novolog every 6 hour check: use sliding scale below: Blood Sugar 70-150 administer 3 units Blood Sugar 151-200 administer 5 units Blood Sugar 201-250 administer 7 units Blood Sugar 251-300 administer 9 units Blood Sugar 301-350 administer 11 units Blood Sugar 351-400 administer 13 units Blood Sugar >400 administer 15 units and call MD * If NOT ON Fibersource, then give only Lantus 5 units SQ QAM and no Novolog.
== END 2020-07-07 16:20 | DRG 391 ==
LOC: ED 13:36 → SUATTDRO 17:29 → 2N 17:29

== ENCOUNTER 2020-07-24 17:20 | Inpatient (IN) ==
[~2020-07-24 17:20] MED LIST changes: -ASPCH81X PO; -AZEL30SP NAE; -CALC0.5C PO; -CEFE2INJ2 IV; +CEFEPIME 2,000 MG in SYRINGE 0 ML IV STA; -CZR25 PO; -DOCU-94 PO; -FLUT0.15; -FURO-85 PO; -HYDR2.5C37 TOP; -INSU100I23 SC; -METO25TA56 PO; -MONT1TAB3 PO; -NRV/10 PO; -NYSCR30 EXT; -PANT40TA PO; -SYMIN160 INH; -VNTHFA/IN INH; -WARF5TAB90 PO; -ZINC20OI TOP; -[UNRECOGNIZED DRUG - CODE] IV
--- NOTE | 2020-07-24 17:43 | Emergency Department Note ---
Impression & Plan Respiratory failure, JOANN (acute kidney injury), Pneumonia, Unresponsive episode, Lethargy ED Provider Note NAME: JOSE GODINEZ AGE: 89 SEX: F : 1930 ARRIVES VIA: Ambulance INFORMANT: [ems, nursing] ED PROVIDER(S): [Dinh Jacobs MD] CHIEF COMPLAINT: Unresponsive HISTORY OF PRESENT ILLNESS: The patient is an 89-year-old female who presents unresponsive. Her last known well was this morning, around 10 to 12 hours ago. She was found this evening quite confused. Apparently, she had been developing some confusion throughout the day and then suddenly was quite confused and pretty much unresponsive. Patient did have a blood sugar in the 200s on the way here. As per EMS, the patient seemed to improve after some uni-hywfm-tkvs ventilation. Given the mental status change and lethargy, no further history obtainable. Of note, the patient is a DNR. REVIEW OF SYSTEMS: Unobtainable given her lethargy and mental state. PMHx/PSHx: See Below SOCIAL HISTORY: See Below. PHYSICAL EXAM: GENERAL: Patient is in mild respiratory distress. HEENT: No acute trauma, normocephalic atraumatic, mucous membranes dry, no nasal congestion, no scleral icterus. Pupils equal and reactive to light. NECK: No stridor, no adenopathy, no meningismus, trachea is midline. LUNGS: Clear to auscultation bilaterally when listening anterior, no wheeze, no rhonchi, breath sounds equal. Mild respiratory distress noted HEART: Without murmurs gallops or rubs, mildly tachycardic, irregular rhythm. ABDOMEN: Soft, nontender, bowel sounds positive, no hernias, no peritonitis. EXTREMITIES: No cyanosis, mild bilateral pedal edema, chronic bilateral skin change, full range of motion of all the joints without pain or difficulty, no signs for acute trauma. NEUROLOGIC: Moves extremities equally, withdraws from pain, reaches up to the chest with a sternal rub. Moaning, does not answer any questions. Does not follow commands. SKIN: No rash, no jaundice, no diaphoresis. DIFFERENTIAL DIAGNOSIS: Infection, dehydration, metabolic abnormality, intracranial bleeding, stroke, pneumonia, coronavirus, hypo/hyperglycemia, electrolyte disturbance, anemia, hypoxia, cardiac sources, intracerebral event, toxicologic, neurologic, as well as other pathologies. EMERGENCY DEPARTMENT COURSE/PROCEDURES: ECG: Indication was unresponsive. The ECG shows atrial fibrillation with a rate of 108. There is diffuse nonspecific ST change. No ST elevation, no PVCs. The QTc is 458. 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 Continuous Cardiac Monitoring: An order was placed for continuous cardiac monitoring. The monitor shows a rate of 100 with atrial fibrillation. Critical Care Note: I have personally spent 47 minutes of critical care time in the direct management of this patient. This includes bedside care, interpretation of diagnostic studies, and testing, discussion with consultants, patient, and family members, and other required patient management activities. This 47 minutes is in excess of all separately billable procedures. MEDICAL DECISION MAKING: There is a moderate leukocytosis which would be consistent with infection. The patient is very mildly anemic. There is a normal platelet count. No coagulopathy. Renal panel testing shows acute renal failure with a creatinine of 2.62. Potassium was normal at 4.2. Lactic acid level was not elevated making severe sepsis less likely. There was no worrisome liver enzyme elevation. The patient appeared to be in a euthyroid state. Urinalysis showed some contamination, no obvious infection. Coronavirus testing was negative. Influenza testing was negative. Brain CT showed no acute bleed or mass-effect. Chest film showed a bilateral pneumonia. ECG shows atrial fibrillation, no acute ischemia. Cardiac enzyme testing x1 is not consistent with acute cardiac injury. The patient presents with an unresponsive episode. She seemed to improve as per EMS with his-bzwso-loef ventilation. The patient was a DNR, she was not to be intubated. She was placed on oxygen via mask. She has done fairly well with the supplemental oxygen. The patient received IV saline, she was given a total of 1 L while here in the ED. She received IV cefepime as empiric antibiotic coverage. She was given a dose of rectal Tylenol for her fever. Patient is responsive the pain. She has remained nonverbal while here in the ED. She is going to require a hospital stay. She may not survive this hospitalization. She clearly is doing quite poorly. Her family is aware of her poor status. I spoke to case management, the on-call hospitalist has been consulted. Past Med/Surg History Medical History Anemia Asthma CAD (coronary atherosclerotic disease) CKD (chronic kidney disease) stage 4, GFR 15-29 ml/min Diabetes GERD (gastroesophageal reflux disease) HTN, goal to be determined Hyperparathyroidism Obesity Oropharyngeal dysphagia PVD (peripheral vascular disease) Surgical History H/O right coronary artery stent placement S/P abdominal hysterectomy S/P cholecystectomy Family History Other No pertinent family history in first degree relatives Social History Smoking Status: Unknown if ever smoked Hx Alcohol Use: No Hx Substance Use: No Preferred Language: Egyptian Communication Ability: Effective Visual Impairment: Limited Hearing Ability: Hard of Hearing Corset Maker Required: No Beliefs That Will Affect Care: None marital status: / Current Living Situation: Personal Care Facility Current Living Situation Comment: [facility] current occupational status: retired Feels Safe at Home: Yes Assistive Devices: Oxygen - Continuous Allergies Allergies Allergy/AdvReac Type Severity Reaction Status Date / Time clofibrate Allergy Severe SWELLING Verified 07/24/20 19:09 rabeprazole Allergy Intermediate SOB/COUGHING Verified 07/24/20 19:09 AND THROAT FELT TIGHT/ABD. CRAMPING fexofenadine Allergy Mild RASH Verified 07/24/20 19:09 Fibrate Anti-Lipidemics Allergy Mild SWELLING Verified 07/24/20 19:09 fluvastatin Allergy Mild HIVES Verified 07/24/20 19:09 metformin Allergy Mild URINARY Verified 07/24/20 19:09 FREQUENCY/RASH/ITCH morphine Allergy Mild ITCHY/HIVES Verified 07/24/20 19:09 moxifloxacin Allergy Mild ITCHY/NAUSE Verified 07/24/20 19:09 A Penicillins Allergy Mild HIVES Verified 07/24/20 19:09 Quinolones Allergy Mild RASH Verified 07/24/20 19:09 amoxicillin Allergy Unknown Unknown Verified 07/24/20 19:09 chlorpropamide Allergy Unknown UNKNOWN Verified 07/24/20 19:09 NSAIDS (Non-Steroidal Allergy Unknown UNKNOWN Verified 07/24/20 19:09 Anti-Inflamma ranitidine Allergy Unknown Unknown Verified 07/24/20 19:09 Sulfa (Sulfonamide Allergy Unknown UNKNOWN Verified 07/24/20 19:09 Antibiotics) blue dye AdvReac Mild MYALGIAS Verified 07/24/20 19:09 AND CRAMPS codeine AdvReac Mild FEELS Verified 07/24/20 19:09 "HIGH" ON/ITCHING dexlansoprazole AdvReac Mild MYALGIAS Verified 07/24/20 19:09 AND CRAMPS gemfibrozil AdvReac Mild ABDOMINAL Verified 07/24/20 19:09 CRAMPS AND DIZZINESS lisinopril AdvReac Mild COUGH Verified 07/24/20 19:09 lorazepam AdvReac Mild 0 Verified 07/24/20 19:09 rofecoxib AdvReac Mild INDIGESTION Verified 07/24/20 19:09 Home Meds Home Medications Medication Instructions Recorded Confirmed montelukast 10 mg tablet 10 mg PO DAILY 01/22/19 07/24/20 allopurinol 200 mg PO DAILY 03/05/19 07/24/20 fluticasone propionate [Flonase 2 spray INTRANASAL DAILY 03/05/19 07/24/20 Allergy Relief] loratadine 10 mg PO DAILY 03/05/19 07/24/20 sennosides-docusate sodium 2 tab PO BID 03/05/19 07/24/20 [Senna-S] Aroma Therapy See Rx Instructions .ROUTE .COMPLEX 06/23/20 07/24/20 Breo Ellipta 1 inh INHALATION DAILY 06/23/20 07/24/20 Eucerin 1 applic TOPICAL BID 06/23/20 07/24/20 Vitron-C 1 tab PO DAILY 06/23/20 07/24/20 acetaminophen 500 mg PO HS MDD 3000 MG APAP/24 06/23/20 07/24/20 HOURS acetaminophen 650 mg PO Q4H PRN MDD 3000 MG 06/23/20 07/24/20 APAP/24 HOURS amlodipine 5 mg PO DAILY 06/23/20 07/24/20 aspirin 81 mg PO DAILY 06/23/20 07/24/20 azelastine 2 spray INTRANASAL AMHS 06/23/20 07/24/20 bumetanide 1 mg PO DAILY 06/23/20 07/24/20 ipratropium-albuterol 3 ml INHALATION Q4H PRN 06/23/20 07/24/20 mirtazapine 30 mg PO HS 06/23/20 07/24/20 omeprazole 40 mg PO QAM 06/23/20 07/24/20 ondansetron HCl [Zofran] 4 mg PO Q6H PRN 06/23/20 07/24/20 sodium chloride [Saline Nasal] 2 spray INTRANASAL DIRECTED 06/23/20 07/24/20 chlorhexidine gluconate 15 ml PO BID 07/24/20 07/24/20 glucagon (human recombinant) 0 mg SUBCUT UD 07/24/20 07/24/20 [Glucagon Emergency Kit (human)] nut.tx.impaired dige fxn-fiber 0 ea FEEDING TUBE UD 07/24/20 07/24/20 [Vital 1.0 Bhavin] Previous Rx's Medication Instructions Recorded insulin glargine [Lantus Solostar 15 unit SUBCUT DAILY 30 Days #4.5 07/07/20 U-100 Insulin] ml losartan 12.5 mg PO DAILY #0 tab 07/07/20 metoclopramide HCl 5 mg PO BIDM PRN #10 tab 07/07/20 metoprolol tartrate 12.5 mg PO QAM #0 tab 07/07/20 miconazole nitrate [Desenex] 1 applic EXT PRN PRN 30 Days #43 g 07/07/20 nystatin 1 applic EXT BID #30 g 07/07/20 Results & Data (ED) Vital Signs Vital Signs - 24 hr 07/24/20 17:25 07/24/20 17:28 07/24/20 17:30 Temperature Temperature Source Pulse Rate 103 H 96 H 114 H Pulse Rate [Right Finger] Pulse Rate from SpO2 Sensor 120 H 120 H Pulse Rhythm Pulse Strength Respiratory Rate Respiratory Effort / Characteristics Respiratory Depth Respiratory Pattern Blood Pressure 144/114 H 139/77 Blood Pressure [Right Arm] Blood Pressure Mean 121 86 Blood Pressure Mean [Right Arm] Blood Pressure Position [Right Arm] Pulse Oximetry 77 L 64 L Oxygen Delivery Method Oxygen Flow Rate Sepsis Recent Fever Within 48 Hours Sepsis New/Unexplained Change in Mental Status Sepsis Action Taken by Nursing End-Tidal CO2 19 22 19 07/24/20 17:31 07/24/20 17:40 07/24/20 17:45 Temperature Temperature Source Pulse Rate 101 H 104 H 126 H Pulse Rate [Right Finger] Pulse Rate from SpO2 Sensor 101 H Pulse Rhythm Pulse Strength Respiratory Rate Respiratory Effort / Characteristics Respiratory Depth Respiratory Pattern Blood Pressure 141/84 H Blood Pressure [Right Arm] Blood Pressure Mean 122 Blood Pressure Mean [Right Arm] Blood Pressure Position [Right Arm] Pulse Oximetry 98 Oxygen Delivery Method Oxygen Flow Rate Sepsis Recent Fever Within 48 Hours Sepsis New/Unexplained Change in Mental Status Sepsis Action Taken by Nursing End-Tidal CO2 19 14 17 07/24/20 17:50 07/24/20 18:00 07/24/20 18:01 Temperature 37.9 C H Temperature Source Rectal Pulse Rate 118 H 175 H 115 H Pulse Rate [Right Finger] Pulse Rate from SpO2 Sensor 100 H Pulse Rhythm Regular Pulse Strength Normal Respiratory Rate 28 H Respiratory Effort / Characteristics Non-Labored Spontaneous Respiratory Depth Normal Respiratory Pattern Regular Blood Pressure 159/80 H 159/80 H Blood Pressure [Right Arm] Blood Pressure Mean 92 106 Blood Pressure Mean [Right Arm] Blood Pressure Position [Right Arm] Pulse Oximetry 95 95 Oxygen Delivery Method Oxymask Oxygen Flow Rate 6 Sepsis Recent Fever Within 48 Hours No Sepsis New/Unexplained Change in Mental Status Yes Sepsis Action Taken by Nursing Physician Notified End-Tidal CO2 19 17 07/24/20 18:10 07/24/20 18:16 07/24/20 18:34 Temperature Temperature Source Pulse Rate 114 H 111 H 115 H Pulse Rate [Right Finger] Pulse Rate from SpO2 Sensor 113 H 116 H 126 H Pulse Rhythm Pulse Strength Respiratory Rate Respiratory Effort / Characteristics Respiratory Depth Respiratory Pattern Blood Pressure 151/78 H 104/92 Blood Pressure [Right Arm] Blood Pressure Mean 108 97 Blood Pressure Mean [Right Arm] Blood Pressure Position [Right Arm] Pulse Oximetry 96 95 95 Oxygen Delivery Method Oxygen Flow Rate Sepsis Recent Fever Within 48 Hours Sepsis New/Unexplained Change in Mental Status Sepsis Action Taken by Nursing End-Tidal CO2 10 22 07/24/20 18:40 07/24/20 18:50 07/24/20 19:00 Temperature Temperature Source Pulse Rate 113 H 116 H 129 H Pulse Rate [Right Finger] Pulse Rate from SpO2 Sensor Pulse Rhythm Pulse Strength Respiratory Rate Respiratory Effort / Characteristics Respiratory Depth Respiratory Pattern Blood Pressure Blood Pressure [Right Arm] Blood Pressure Mean Blood Pressure Mean [Right Arm] Blood Pressure Position [Right Arm] Pulse Oximetry Oxygen Delivery Method Oxygen Flow Rate Sepsis Recent Fever Within 48 Hours Sepsis New/Unexplained Change in Mental Status Sepsis Action Taken by Nursing End-Tidal CO2 07/24/20 19:08 07/24/20 19:10 07/24/20 19:11 Temperature Temperature Source Pulse Rate 117 H 126 H Pulse Rate [Right Finger] 133 H Pulse Rate from SpO2 Sensor Pulse Rhythm Pulse Strength Respiratory Rate 18 Respiratory Effort / Characteristics Respiratory Depth Normal Respiratory Pattern Blood Pressure 140/82 Blood Pressure [Right Arm] Blood Pressure Mean 112 Blood Pressure Mean [Right Arm] Blood Pressure Position [Right Arm] Lying Pulse Oximetry Oxygen Delivery Method Oxymask Oxygen Flow Rate 6 Sepsis Recent Fever Within 48 Hours Sepsis New/Unexplained Change in Mental Status Sepsis Action Taken by Nursing End-Tidal CO2 07/24/20 19:15 07/24/20 19:20 07/24/20 19:30 Temperature Temperature Source Pulse Rate 117 H 133 H 132 H Pulse Rate [Right Finger] Pulse Rate from SpO2 Sensor 123 H 116 H Pulse Rhythm Pulse Strength Respiratory Rate Respiratory Effort / Characteristics Respiratory Depth Respiratory Pattern Blood Pressure 142/80 H Blood Pressure [Right Arm] Blood Pressure Mean 118 Blood Pressure Mean [Right Arm] Blood Pressure Position [Right Arm] Pulse Oximetry 100 92 Oxygen Delivery Method Oxymask Oxymask Oxygen Flow Rate 6 6 Sepsis Recent Fever Within 48 Hours Sepsis New/Unexplained Change in Mental Status Sepsis Action Taken by Nursing End-Tidal CO2 07/24/20 19:40 07/24/20 19:49 07/24/20 19:50 Temperature Temperature Source Pulse Rate 127 H 115 H 126 H Pulse Rate [Right Finger] Pulse Rate from SpO2 Sensor 123 H Pulse Rhythm Pulse Strength Respiratory Rate Respiratory Effort / Characteristics Respiratory Depth Respiratory Pattern Blood Pressure 126/74 Blood Pressure [Right Arm] Blood Pressure Mean 89 Blood Pressure Mean [Right Arm] Blood Pressure Position [Right Arm] Pulse Oximetry 92 Oxygen Delivery Method Oxymask Oxymask Oxymask Oxygen Flow Rate 6 6 6 Sepsis Recent Fever Within 48 Hours Sepsis New/Unexplained Change in Mental Status Sepsis Action Taken by Nursing End-Tidal CO2 07/24/20 20:00 07/24/20 20:01 07/24/20 20:10 Temperature Temperature Source Pulse Rate 117 H 118 H 109 H Pulse Rate [Right Finger] 101 H Pulse Rate from SpO2 Sensor 118 H 111 H 101 H Pulse Rhythm Pulse Strength Respiratory Rate 16 Respiratory Effort / Characteristics Respiratory Depth Normal Respiratory Pattern Blood Pressure 132/87 Blood Pressure [Right Arm] 112/51 L Blood Pressure Mean 91 Blood Pressure Mean [Right Arm] 71 Blood Pressure Position [Right Arm] Lying Pulse Oximetry 94 98 97 Oxygen Delivery Method Oxymask Oxymask Oxygen Flow Rate 6 6 Sepsis Recent Fever Within 48 Hours Sepsis New/Unexplained Change in Mental Status Sepsis Action Taken by Nursing End-Tidal CO2 07/24/20 20:16 07/24/20 20:20 07/24/20 20:30 Temperature Temperature Source Pulse Rate 108 H 106 H 104 H Pulse Rate [Right Finger] Pulse Rate from SpO2 Sensor 108 H 106 H Pulse Rhythm Pulse Strength Respiratory Rate 20 Respiratory Effort / Characteristics Respiratory Depth Respiratory Pattern Blood Pressure 127/60 115/61 Blood Pressure [Right Arm] Blood Pressure Mean 75 65 Blood Pressure Mean [Right Arm] Blood Pressure Position [Right Arm] Pulse Oximetry 98 100 Oxygen Delivery Method Oxymask Oxymask Oxygen Flow Rate 6 6 Sepsis Recent Fever Within 48 Hours Sepsis New/Unexplained Change in Mental Status Sepsis Action Taken by Nursing End-Tidal CO2 07/24/20 20:40 07/24/20 20:45 07/24/20 21:00 Temperature Temperature Source Pulse Rate 101 H 115 H 102 H Pulse Rate [Right Finger] Pulse Rate from SpO2 Sensor 103 H 115 H 100 H Pulse Rhythm Pulse Strength Respiratory Rate 20 20 Respiratory Effort / Characteristics Respiratory Depth Respiratory Pattern Blood Pressure 112/51 L 130/56 L Blood Pressure [Right Arm] Blood Pressure Mean 62 75 Blood Pressure Mean [Right Arm] Blood Pressure Position [Right Arm] Pulse Oximetry 97 100 100 Oxygen Delivery Method Oxymask Oxymask Oxymask Oxygen Flow Rate 6 6 6 Sepsis Recent Fever Within 48 Hours Sepsis New/Unexplained Change in Mental Status Sepsis Action Taken by Nursing End-Tidal CO2 07/24/20 21:30 Temperature 38.0 C H Temperature Source Rectal Pulse Rate Pulse Rate [Right Finger] 100 H Pulse Rate from SpO2 Sensor Pulse Rhythm Pulse Strength Respiratory Rate 18 Respiratory Effort / Characteristics Respiratory Depth Normal Respiratory Pattern Blood Pressure Blood Pressure [Right Arm] 134/65 Blood Pressure Mean Blood Pressure Mean [Right Arm] 88 Blood Pressure Position [Right Arm] Lying Pulse Oximetry 100 Oxygen Delivery Method Oxymask Oxygen Flow Rate 6 Sepsis Recent Fever Within 48 Hours Sepsis New/Unexplained Change in Mental Status Sepsis Action Taken by Nursing End-Tidal CO2 Home Medications Current Medication List: was personally reviewed by me Laboratory Data Attestation: I reviewed the patient's lab results. Result diagrams: 07/24/20 20:19 07/24/20 20:19 Lab Results 07/24/20 07/24/20 07/24/20 Range/Units 17:55 19:19 19:19 WBC (4.8-10.8) K/uL RBC (4.2-5.4) M/uL Hgb (12.0-16.0) g/dL POC Hgb (12.0-16.0) g/dl Hct (37-47) % POC Hct (37-47) % MCV (80-100) fL MCH (25-34) pg MCHC (32-36) g/dL RDW Std Deviation (36.4-46.3) fL RDW Coeff of Adolph (11.5-14.5) % Plt Count (130-400) K/uL MPV (7.4-10.4) fL Immature Gran % (Auto) % Neut % (Auto) % Lymph % (Auto) % [place] % (Auto) % Eos % (Auto) % Baso % (Auto) % Neut # (Auto) (1.4-6.5) K/uL Lymph # (Auto) (1.2-3.4) K/uL [place] # (Auto) (0.11-0.59) K/uL Eos # (Auto) (0-0.5) K/uL Baso # (Auto) (0-0.2) K/uL Immature Gran # (Auto) (0.00-0.02) K/uL PT (9.0-12.0) Seconds INR (0.9-1.1) APTT (21.0-31.0) Seconds PTT Ratio POC Sodium (135-144) mmol/L Sodium (136-145) mmol/L POC Potassium (3.3-5.0) mmol/L Potassium (3.5-5.1) mmol/L POC Chloride (101-112) mmol/L Chloride (98-107) mmol/L Carbon Dioxide (21-32) mmol/L POC Total CO2 (24-31) mmol/L Anion Gap (3-11) POC Anion Gap (16-25) mmol/L POC BUN (7-18) mg/dl BUN (7-18) mg/dl Creatinine (0.6-1.2) mg/dl POC Creatinine (0.6-1.3) mg/dl Est Cr Clr Drug Dosing ml/min Est GFR ( Amer) Est GFR (Non-Af Amer) BUN/Creatinine Ratio (10-20) Glucose (70-99) mg/dl POC Glucose (other) (70-99) mg/dl Lactate (0.4-2.0) mmol/L Calcium (8.5-10.1) mg/dl POC Ioniz Calcium Lucía (1.12-1.32) mmol/l Magnesium (1.8-2.4) mg/dl Total Bilirubin (0.2-1) mg/dl AST (15-37) U/L ALT (12-78) U/L Alkaline Phosphatase (45-117) U/L Troponin I (0-0.045) ng/ml Total Protein (6.4-8.2) gm/dl Albumin (3.4-5.0) gm/dl Globulin (2.5-4.0) gm/dl Albumin/Globulin Ratio (0.9-2) TSH (0.300-4.500) uIu/ml Urine Color Dark Yellow Urine Appearance Clear (Clear) Urine pH 5.0 (4.5-7.5) Ur Specific [place] 1.020 (1.000-1.030) Urine Protein Trace H (Negative) Urine Glucose (UA) Negative (Negative) Urine Ketones Trace H (Negative) Urine Blood Negative (Negative) Urine Nitrite Positive A (Negative) Urine Bilirubin Negative (Negative) Urine Urobilinogen Negative (Negative) Ur Leukocyte Esterase Negative (Negative) Urine WBC (Auto) 1-5 (0-5) /hpf Urine RBC (Auto) 0-4 (0-4) /hpf U Hyaline Cast (Auto) 10-30 H (0-5) /lpf U Epithel Cells (Auto) 20-30 H (0-5) /lpf Urine Bacteria (Auto) Negative (Negative) COVID-19 Eval Order Covid19 Done at [facility] COVID-19 PCR NEGATIVE (Negative) Influ A Molecular Assay (Negative) Influ B Molecular Assay (Negative) 07/24/20 07/24/20 07/24/20 Range/Units 19:20 20:19 20:19 WBC 16.74 H (4.8-10.8) K/uL RBC 3.53 L (4.2-5.4) M/uL Hgb 11.3 L (12.0-16.0) g/dL POC Hgb (12.0-16.0) g/dl Hct 33.7 L (37-47) % POC Hct (37-47) % MCV 95.5 (80-100) fL MCH 32.0 (25-34) pg MCHC 33.5 (32-36) g/dL RDW Std Deviation 59.8 H (36.4-46.3) fL RDW Coeff of Adolph 17.3 H (11.5-14.5) % Plt Count 225 (130-400) K/uL MPV 11.2 H (7.4-10.4) fL Immature Gran % (Auto) 0.5 % Neut % (Auto) 91.7 % Lymph % (Auto) 3.5 % [place] % (Auto) 4.2 % Eos % (Auto) 0.0 % Baso % (Auto) 0.1 % Neut # (Auto) 15.34 H (1.4-6.5) K/uL Lymph # (Auto) 0.59 L (1.2-3.4) K/uL [place] # (Auto) 0.71 H (0.11-0.59) K/uL Eos # (Auto) 0.00 (0-0.5) K/uL Baso # (Auto) 0.02 (0-0.2) K/uL Immature Gran # (Auto) 0.08 H (0.00-0.02) K/uL PT 11.5 (9.0-12.0) Seconds INR 1.1 (0.9-1.1) APTT 31.0 (21.0-31.0) Seconds PTT Ratio 1.1 POC Sodium (135-144) mmol/L Sodium (136-145) mmol/L POC Potassium (3.3-5.0) mmol/L Potassium (3.5-5.1) mmol/L POC Chloride (101-112) mmol/L Chloride (98-107) mmol/L Carbon Dioxide (21-32) mmol/L POC Total CO2 (24-31) mmol/L Anion Gap (3-11) POC Anion Gap (16-25) mmol/L POC BUN (7-18) mg/dl BUN (7-18) mg/dl Creatinine (0.6-1.2) mg/dl POC Creatinine (0.6-1.3) mg/dl Est Cr Clr Drug Dosing ml/min Est GFR ( Amer) Est GFR (Non-Af Amer) BUN/Creatinine Ratio (10-20) Glucose (70-99) mg/dl POC Glucose (other) (70-99) mg/dl Lactate (0.4-2.0) mmol/L Calcium (8.5-10.1) mg/dl POC Ioniz Calcium Lucía (1.12-1.32) mmol/l Magnesium (1.8-2.4) mg/dl Total Bilirubin (0.2-1) mg/dl AST (15-37) U/L ALT (12-78) U/L Alkaline Phosphatase (45-117) U/L Troponin I (0-0.045) ng/ml Total Protein (6.4-8.2) gm/dl Albumin (3.4-5.0) gm/dl Globulin (2.5-4.0) gm/dl Albumin/Globulin Ratio (0.9-2) TSH (0.300-4.500) uIu/ml Urine Color Urine Appearance (Clear) Urine pH (4.5-7.5) Ur Specific [place] (1.000-1.030) Urine Protein (Negative) Urine Glucose (UA) (Negative) Urine Ketones (Negative) Urine Blood (Negative) Urine Nitrite (Negative) Urine Bilirubin (Negative) Urine Urobilinogen (Negative) Ur Leukocyte Esterase (Negative) Urine WBC (Auto) (0-5) /hpf Urine RBC (Auto) (0-4) /hpf U Hyaline Cast (Auto) (0-5) /lpf U Epithel Cells (Auto) (0-5) /lpf Urine Bacteria (Auto) (Negative) COVID-19 Eval Order COVID-19 PCR (Negative) Influ A Molecular Assay Negative (Negative) Influ B Molecular Assay Negative (Negative) 07/24/20 07/24/20 07/24/20 Range/Units 20:19 20:19 20:22 WBC (4.8-10.8) K/uL RBC (4.2-5.4) M/uL Hgb (12.0-16.0) g/dL POC Hgb 14.3 (12.0-16.0) g/dl Hct (37-47) % POC Hct 42 (37-47) % MCV (80-100) fL MCH (25-34) pg MCHC (32-36) g/dL RDW Std Deviation (36.4-46.3) fL RDW Coeff of Adolph (11.5-14.5) % Plt Count (130-400) K/uL MPV (7.4-10.4) fL Immature Gran % (Auto) % Neut % (Auto) % Lymph % (Auto) % [place] % (Auto) % Eos % (Auto) % Baso % (Auto) % Neut # (Auto) (1.4-6.5) K/uL Lymph # (Auto) (1.2-3.4) K/uL [place] # (Auto) (0.11-0.59) K/uL Eos # (Auto) (0-0.5) K/uL Baso # (Auto) (0-0.2) K/uL Immature Gran # (Auto) (0.00-0.02) K/uL PT (9.0-12.0) Seconds INR (0.9-1.1) APTT (21.0-31.0) Seconds PTT Ratio POC Sodium 133 L (135-144) mmol/L Sodium 133 L (136-145) mmol/L POC Potassium 5.5 H (3.3-5.0) mmol/L Potassium 4.2 (3.5-5.1) mmol/L POC Chloride 99 L (101-112) mmol/L Chloride 102 (98-107) mmol/L Carbon Dioxide 20 L (21-32) mmol/L POC Total CO2 21 L (24-31) mmol/L Anion Gap 11.0 (3-11) POC Anion Gap 19.0 (16-25) mmol/L POC BUN 73 H (7-18) mg/dl BUN 70 H (7-18) mg/dl Creatinine 2.62 H (0.6-1.2) mg/dl POC Creatinine 2.7 H (0.6-1.3) mg/dl Est Cr Clr Drug Dosing 15.1 ml/min Est GFR ( Amer) 18.1 Est GFR (Non-Af Amer) 15.6 BUN/Creatinine Ratio 26.8 H (10-20) Glucose 255 H (70-99) mg/dl POC Glucose (other) 216 H (70-99) mg/dl Lactate 1.8 (0.4-2.0) mmol/L Calcium 8.4 L (8.5-10.1) mg/dl POC Ioniz Calcium Lucía 1.12 (1.12-1.32) mmol/l Magnesium 1.9 (1.8-2.4) mg/dl Total Bilirubin 0.6 (0.2-1) mg/dl AST 15 (15-37) U/L ALT 13 (12-78) U/L Alkaline Phosphatase 126 H (45-117) U/L Troponin I 0.033 (0-0.045) ng/ml Total Protein 6.0 L (6.4-8.2) gm/dl Albumin 2.0 L (3.4-5.0) gm/dl Globulin 4.0 (2.5-4.0) gm/dl Albumin/Globulin Ratio 0.5 L (0.9-2) TSH 1.310 (0.300-4.500) uIu/ml Urine Color Urine Appearance (Clear) Urine pH (4.5-7.5) Ur Specific [place] (1.000-1.030) Urine Protein (Negative) Urine Glucose (UA) (Negative) Urine Ketones (Negative) Urine Blood (Negative) Urine Nitrite (Negative) Urine Bilirubin (Negative) Urine Urobilinogen (Negative) Ur Leukocyte Esterase (Negative) Urine WBC (Auto) (0-5) /hpf Urine RBC (Auto) (0-4) /hpf U Hyaline Cast (Auto) (0-5) /lpf U Epithel Cells (Auto) (0-5) /lpf Urine Bacteria (Auto) (Negative) COVID-19 Eval Order COVID-19 PCR (Negative) Influ A Molecular Assay (Negative) Influ B Molecular Assay (Negative) Administered Medications Discontinued Medications Acetaminophen (Acetaminophen 650 Mg Supp) 650 mg ME NOW STA Stop: 07/24/20 19:26 Last Admin: 07/24/20 19:40 Dose: 650 mg Documented by: [id number] Cefepime HCl (Cefepime 2,000 Mg/20 Ml Vial) Confirm Administered Dose 2,000 mg .ROUTE .STK-MED ONE Stop: 07/24/20 19:00 Last Admin: 07/24/20 19:40 Dose: Not Given Documented by: [id number] Sodium Chloride (Nss) 500 mls @ 999 mls/hr IV .Q31M BRANDON Stop: 07/24/20 18:15 Last Infusion: 07/24/20 21:52 Dose: 0 mls/hr Documented by: [id number] Admin: 07/24/20 18:42 Dose: 999 mls/hr Documented by: [id number] Cefepime HCl 2,000 mg/ Syringe 20 mls @ 5 mls/min IV NOW STA Stop: 07/24/20 19:29 Last Admin: 07/24/20 19:50 Dose: 5 mls/min Documented by: [id number] Sodium Chloride (Nss 1000ml) 500 mls @ 999 mls/hr IV .Q31M ONE Stop: 07/24/20 20:43 Last Infusion: 07/24/20 21:52 Dose: 0 mls/hr Documented by: [id number] Admin: 07/24/20 21:08 Dose: 999 mls/hr Documented by: [id number] Imaging Data Radiologist's Impression: XR chest 1V portable HISTORY: 89 years-old Female weakness acute shortness of breath COMPARISON: Chest radiograph 07/05/2020, CT abdomen and pelvis 06/24/2020 TECHNIQUE: Portable upright AP view of the chest FINDINGS: Cardiac silhouette is mildly enlarged. Coronary artery stent. Pulmonary vascular congestion with interstitial coarsening. Small pleural effusions. No pneumothorax. Bibasilar airspace opacities. Degenerative changes of the sh oulders and spine. IMPRESSION: 1. Bibasilar airspace opacities are concerning for pneumonia. Follow-up imaging to document resolution is needed. 2. Cardiomegaly with pulmonary edema and small pleural effusions. CT head/brain wo con CLINICAL HISTORY: 89 years-old Female with confusion. Acutely altered mental status TECHNIQUE: Multiple axial CT images of the head were obtained without contrast. A dose lowering technique was utilized adhering to the principles of ALARA. CT DOSE: 614.27 mGy.cm COMPARISON: Head CT 09/16/2019 FINDINGS: No acute intracranial hemorrhage, midline shift, intracranial mass, hydrocephalus, territorial ischemia or abnormal extra-axial collection. Age- related involutional changes. Patchy white matter hypodensities suggestive of chronic microvascular ischemic disease. Calcifications of the falx cerebri. Cerebral vascular calcifications. The calvarium is intact. Prior bilateral lens replacement. The paranasal s inuses, mastoid air cells, and middle ear cavities are clear. IMPRESSION: No acute intracranial abnormality. Discharge Plan Visit Data Chief Complaint: Unresponsive ED Provider: Dinh Jacobs Discharge Problem: Respiratory failure, JOANN (acute kidney injury), Pneumonia, Unresponsive episode, Lethargy Patient Disposition: Admitted As Inpatient Condition: Serious Forms Stand Alone Forms: [facility] Prescriptions Prescriptions: No Action montelukast [Singulair] 10 mg tablet 10 mg PO DAILY RF: 0 amlodipine 5 mg tablet 5 mg PO DAILY RF: 0 acetaminophen 500 mg Tablet 500 mg PO HS MDD 3000 MG APAP/24 HOURS RF: 0 aspirin 81 mg Tablet,Chewable 81 mg PO DAILY RF: 0 azelastine 0.15 % (205.5 mcg) spray,non-aerosol 2 spray INTRANASAL AMHS RF: 0 omeprazole 40 mg capsule,delayed release(DR/EC) 40 mg PO QAM RF: 0 mirtazapine 30 mg tablet 30 mg PO HS RF: 0 bumetanide 1 mg tablet 1 mg PO DAILY RF: 0 sodium chloride [Saline Nasal] 0.65 % Aerosol,[place] 2 spray INTRANASAL DIRECTED RF: 0 Eucerin Cream 1 applic TOPICAL BID RF: 0 Vitron-C 65 mg iron- 125 mg Tablet,Delayed Release (Dr/Ec) 1 tab PO DAILY RF: 0 Breo Ellipta 200-25 mcg/dose blister with device 1 inh INHALATION DAILY RF: 0 acetaminophen 325 mg Tablet 650 mg PO Q4H MDD 3000 MG APAP/24 HOURS PRN (Reason: Fever Or Pain) RF: 0 ipratropium-albuterol 0.5 mg-3 mg(2.5 mg base)/3 mL solution for nebulization 3 ml INHALATION Q4H PRN (Reason: Wheezing) RF: 0 ondansetron HCl [Zofran] 4 mg Tablet 4 mg PO Q6H PRN (Reason: Nausea/Vomiting) RF: 0 Aroma Therapy See Rx Instructions .ROUTE .COMPLEX RF: 0 nystatin 100,000 unit/gram Cream 1 applic EXT BID Qty: 30 RF: 0 Desenex 2 % Powder 1 applic EXT PRN PRN (Reason: rash) 30 Days Qty: 43 RF: 0 metoclopramide HCl 5 mg Tablet 5 mg PO BIDM PRN (Reason: nausea and vomiting) Qty: 10 RF: 0 losartan 25 mg tablet 12.5 mg PO DAILY Qty: 0 RF: 0 Lantus Solostar U-100 Insulin 100 unit/mL (3 mL) Insulin Pen 15 unit subcut DAILY 30 Days Qty: 4.5 RF: 0 metoprolol tartrate 25 mg Tablet 12.5 mg PO QAM Qty: 0 RF: 0 sennosides-docusate sodium [Senna-S] 8.6-50 mg Tablet 2 tab PO BID RF: 0 allopurinol 100 mg tablet 200 mg PO DAILY RF: 0 fluticasone propionate [Flonase Allergy Relief] 50 mcg/actuation [place],Suspens ion 2 spray INTRANASAL DAILY RF: 0 loratadine 10 mg Tablet 10 mg PO DAILY RF: 0 Glucagon Emergency Kit (human) 1 mg recon soln 0 mg subcut UD RF: 0 Vital 1.0 Bhavin 0.04 gram- 1 kcal/mL Liquid 0 ea feeding tube UD RF: 0 chlorhexidine gluconate 0.12 % mouthwash 15 ml PO BID RF: 0 Referrals Referrals: Agustina Mock DO [Primary Care Provider] - Discharge Problem: Respiratory failure Qualifiers: Chronicity: acute Respiratory failure complication: unspecified whether with hy poxia or hypercapnia Qualified Code(s): J96.00 - Acute respiratory failure, unspecified whether with hypoxia or hypercapnia Pneumonia Qualifiers: Pneumonia type: due to unspecified organism Laterality: bilateral Lung location: unspecified part of lung Qualified Code(s): J18.9 - Pneumonia, unspecified organism
[2020-07-24] MEDS ORDERED: SODIUM CHLORIDE 0.9% 500 ML IV SCH ×2 (17:45→22:00)
--- NOTE | 2020-07-24 18:12 | XRay Report ---
XR chest 1V portable HISTORY: 89 years-old Female weakness acute shortness of breath COMPARISON: Chest radiograph 07/05/2020, CT abdomen and pelvis 06/24/2020 TECHNIQUE: Portable upright AP view of the chest FINDINGS: Cardiac silhouette is mildly enlarged. Coronary artery stent. Pulmonary vascular congestion with inte rstitial coarsening. Small pleural effusions. No pneumothorax. Bibasilar airspace opacities. Degenera tive changes of the shoulders and spine. IMPRESSION: 1. Bibasilar airspace opacities are concerning for pneumonia. Follow-up imaging to document resolutio n is needed. 2. Cardiomegaly with pulmonary edema and small pleural effusions. ACT 112: Negative or not required by law. The above report was generated using voice recognition software. It may contain grammatical, syntax o r spelling errors. Electronically signed by: Beto Eddy M.D. 07/24/2020 6:11 PM
[2020-07-24 18:22] LABS: Appearance Urine Clear (Clear); Bacteria Urine Automated Negative (Negative); Bilirubin Urine Negative (Negative); Blood Urine Negative (Negative); Color Urine Dark Yellow; Epithelial Cell Urine Auto 20-30 /lpf (0-5); Glucose Urine UA Negative (Negative); Ketones Urine Trace (Negative); Leukocyte Esterase Urine Negative (Negative); Nitrite Urine Positive (Negative); Protein Urine Trace (Negative); RBC Urine Automated 0-4 /hpf (0-4); Urobilinogen Urine Negative (Negative)
[2020-07-24] MEDS ORDERED: CEFEPIME 2,000 MG/20 ML VIAL ONE (18:59)
--- NOTE | 2020-07-24 19:00 | CT Scan Report ---
CT head/brain wo con CLINICAL HISTORY: 89 years-old Female with confusion. Acutely altered mental status TECHNIQUE: Multiple axial CT images of the head were obtained without contrast. A dose lowering tech nique was utilized adhering to the principles of ALARA. CT DOSE: 614.27 mGy.cm COMPARISON: Head CT 09/16/2019 FINDINGS: No acute intracranial hemorrhage, midline shift, intracranial mass, hydrocephalus, territorial ischem ia or abnormal extra-axial collection. Age-related involutional changes. Patchy white matter hypodens ities suggestive of chronic microvascular ischemic disease. Calcifications of the falx cerebri. Cereb ral vascular calcifications. The calvarium is intact. Prior bilateral lens replacement. The paranasal sinuses, mastoid air cells, and middle ear cavities are clear. IMPRESSION: No acute intracranial abnormality. ACT 112: Negative or not required by law. The above report was generated using voice recognition software. It may contain grammatical, syntax o r spelling errors. Electronically signed by: Beto Eddy M.D. 07/24/2020 6:58 PM
[2020-07-24] MEDS ORDERED: ACETAMINOPHEN 650 MG SUPP PR STA (19:25)
[2020-07-24] MEDS ORDERED: CEFEPIME 2,000 MG in SYRINGE 0 ML IV STA ×2 (19:26→21:54)
[2020-07-24 19:40] LABS: Influenza A virus by PCR Negative (Negative); Influenza B virus by PCR Negative (Negative)
[2020-07-24] MEDS ORDERED: SODIUM CHLORIDE 0.9% 1000ML 500 ML IV ONE (20:13)
[2020-07-24 20:35] LABS: iSTAT Creatinine 2.7 mg/dl (0.6-1.3); iSTAT Hemoglobin 14.3 g/dl (12.0-16.0); iSTAT Ionized Calcium 1.12 mmol/l (1.12-1.32); iSTAT Potassium 5.5 mmol/L (3.3-5.0)
[2020-07-24 20:39] LABS: Basophils # (auto) 0.02 K/uL (0-0.2); Basophils % (auto) 0.1 %; Hematocrit (blood only) 33.7 % (37-47); Hemoglobin 11.3 g/dL (12.0-16.0); Immature Granulocytes # (auto) 0.08 K/uL (0.00-0.02); Immature Granulocytes % (auto) 0.5 %; Lymphocytes # (auto) 0.59 K/uL (1.2-3.4); Lymphocytes % (auto) 3.5 %; Mean Corpuscular Hgb Conc 33.5 g/dL (32-36); Mean Corpuscular Volume 95.5 fL (80-100); Mean Platelet Volume 11.2 fL (7.4-10.4); Monocytes # (auto) 0.71 K/uL (0.11-0.59); Monocytes % (auto) 4.2 %; Neutrophils # (auto) 15.34 K/uL (1.4-6.5); Neutrophils % (auto) 91.7 %; Platelet Count 225 K/uL (130-400); RDW Coefficient of Variation 17.3 % (11.5-14.5); RDW Standard Deviation 59.8 fL (36.4-46.3); Red Blood Count 3.53 M/uL (4.2-5.4); White Blood Count 16.74 K/uL (4.8-10.8)
[2020-07-24 20:52] LABS: INR 1.1 (0.9-1.1); Partial Thromboplastin Ratio 1.1; Prothrombin Time 11.5 Seconds (9.0-12.0)
[2020-07-24 20:54] LABS: BUN Creatinine Ratio 26.8 (10-20); Calcium 8.4 mg/dl (8.5-10.1); Creatinine Clr Calc Pharmacy 15.1 ml/min; Est GFR (African American) 18.1; Est GFR (Non-African American) 15.6; Magnesium 1.9 mg/dl (1.8-2.4); Potassium 4.2 mmol/L (3.5-5.1)
[2020-07-24 21:05] LABS: Albumin Globulin Ratio 0.5 (0.9-2); Bilirubin,Total 0.6 mg/dl (0.2-1); Thyroid Stimulating Hormone 1.31 uIu/ml (0.300-4.500); Troponin I 0.033 ng/ml (0-0.045)
--- NOTE | 2020-07-24 21:42 | History & Physical Report ---
Date of Service July 24, 2020 Assessment & Plan (1) Pneumonia: Met sepsis criteria on admission with tachycardia, high white count and confusion Bibasilar infiltration Could be due to aspiration Blood cultures have been taken Received 1 dose of intravenous cefepime and will continue and add IV doxycycline to cover atypicals Will give oxygen as needed (2) Unresponsive episode: Reported to have unresponsive episode at the senior care and also in the hospital Likely cause could be the illness Responsive to vocal commands during my examination (3) Oropharyngeal dysphagia: Status post PEG tube placement during last admission Continue with PEG tube feeding and medications (4) (HFpEF) heart failure with preserved ejection fraction: Has been getting bumetanide 1 mg daily Will give 500 mL of normal saline IV And continue bumetanide from tomorrow (5) Type 2 diabetes mellitus: Continue current insulin Put her on sliding scale coverage (6) PVD (peripheral vascular disease): Has chronic skin changes bilaterally May have sacral and heel decubiti (7) Asthma, moderate: No acute exacerbation DVT prophylaxis Subcu heparin CODE STATUS DNR Discussed with the son History of Present Illness Chief Complaint: She was brought in from [facility] with the decreased responsiveness and confusion Primary Care Provider: Agustina Mock DO She is an 89-year-old female with significant past medical history of CAD, CHF, atrial fibrillation, CKD stage IV with anemia, diabetes, peripheral vascular disease and dysphagia status post PEG tube placement apparently was brought in from [facility] with decreased responsiveness and increasing confusion since this morning. She was at the [facility] recently and the following discharge from hospital she was in isolation for about 14 days. She came out of isolation this morning and she was noted to be very confused with decrease in saturation and decreased responsiveness and she was sent to emergency room for further evaluation. She was semiresponsive during my examination in the emergency room and she was moaning at times but without any other apparent distress. She was noted to be febrile with increased white count and chest x-ray did show bibasilar pneumonia. She is started with intravenous cefepime and as above advised for admission. Allergies Allergy/AdvReac Type Severity Reaction Status Date / Time clofibrate Allergy Severe SWELLING Verified 07/24/20 19:09 rabeprazole Allergy Intermediate SOB/COUGHING Verified 07/24/20 19:09 AND THROAT FELT TIGHT/ABD. CRAMPING fexofenadine Allergy Mild RASH Verified 07/24/20 19:09 Fibrate Anti-Lipidemics Allergy Mild SWELLING Verified 07/24/20 19:09 fluvastatin Allergy Mild HIVES Verified 07/24/20 19:09 metformin Allergy Mild URINARY Verified 07/24/20 19:09 FREQUENCY/RASH/ITCH morphine Allergy Mild ITCHY/HIVES Verified 07/24/20 19:09 moxifloxacin Allergy Mild ITCHY/NAUSE Verified 07/24/20 19:09 A Penicillins Allergy Mild HIVES Verified 07/24/20 19:09 Quinolones Allergy Mild RASH Verified 07/24/20 19:09 amoxicillin Allergy Unknown Unknown Verified 07/24/20 19:09 chlorpropamide Allergy Unknown UNKNOWN Verified 07/24/20 19:09 NSAIDS (Non-Steroidal Allergy Unknown UNKNOWN Verified 07/24/20 19:09 Anti-Inflamma ranitidine Allergy Unknown Unknown Verified 07/24/20 19:09 Sulfa (Sulfonamide Allergy Unknown UNKNOWN Verified 07/24/20 19:09 Antibiotics) blue dye AdvReac Mild MYALGIAS Verified 07/24/20 19:09 AND CRAMPS codeine AdvReac Mild FEELS Verified 07/24/20 19:09 "HIGH" ON/ITCHING dexlansoprazole AdvReac Mild MYALGIAS Verified 07/24/20 19:09 AND CRAMPS gemfibrozil AdvReac Mild ABDOMINAL Verified 07/24/20 19:09 CRAMPS AND DIZZINESS lisinopril AdvReac Mild COUGH Verified 07/24/20 19:09 lorazepam AdvReac Mild 0 Verified 07/24/20 19:09 rofecoxib AdvReac Mild INDIGESTION Verified 07/24/20 19:09 Home Medications Home Medications Medication Instructions Recorded Confirmed Type montelukast 10 mg tablet 10 mg PO DAILY 01/22/19 07/24/20 History allopurinol 200 mg PO DAILY 03/05/19 07/24/20 History fluticasone propionate [Flonase 2 spray INTRANASAL DAILY 03/05/19 07/24/20 History Allergy Relief] loratadine 10 mg PO DAILY 03/05/19 07/24/20 History sennosides-docusate sodium 2 tab PO BID 03/05/19 07/24/20 History [Senna-S] Aroma Therapy See Rx Instructions .ROUTE .COMPLEX 06/23/20 07/24/20 History Breo Ellipta 1 inh INHALATION DAILY 06/23/20 07/24/20 History Eucerin 1 applic TOPICAL BID 06/23/20 07/24/20 History Vitron-C 1 tab PO DAILY 06/23/20 07/24/20 History acetaminophen 500 mg PO HS MDD 3000 MG APAP/24 06/23/20 07/24/20 History HOURS acetaminophen 650 mg PO Q4H PRN MDD 3000 MG 06/23/20 07/24/20 History APAP/24 HOURS amlodipine 5 mg PO DAILY 06/23/20 07/24/20 History aspirin 81 mg PO DAILY 06/23/20 07/24/20 History azelastine 2 spray INTRANASAL AMHS 06/23/20 07/24/20 History bumetanide 1 mg PO DAILY 06/23/20 07/24/20 History ipratropium-albuterol 3 ml INHALATION Q4H PRN 06/23/20 07/24/20 History mirtazapine 30 mg PO HS 06/23/20 07/24/20 History omeprazole 40 mg PO QAM 06/23/20 07/24/20 History ondansetron HCl [Zofran] 4 mg PO Q6H PRN 06/23/20 07/24/20 History sodium chloride [Saline Nasal] 2 spray INTRANASAL DIRECTED 06/23/20 07/24/20 History insulin glargine [Lantus Solostar 15 unit SUBCUT DAILY 30 Days #4.5 07/07/20 07/24/20 Rx U-100 Insulin] ml losartan 12.5 mg PO DAILY #0 tab 07/07/20 07/24/20 Rx metoclopramide HCl 5 mg PO BIDM PRN #10 tab 07/07/20 07/24/20 Rx metoprolol tartrate 12.5 mg PO QAM #0 tab 07/07/20 07/24/20 Rx miconazole nitrate [Desenex] 1 applic EXT PRN PRN 30 Days #43 g 07/07/20 07/24/20 Rx nystatin 1 applic EXT BID #30 g 07/07/20 07/24/20 Rx chlorhexidine gluconate 15 ml PO BID 07/24/20 07/24/20 History glucagon (human recombinant) 0 mg SUBCUT UD 07/24/20 07/24/20 History [Glucagon Emergency Kit (human)] nut.tx.impaired dige fxn-fiber 0 ea FEEDING TUBE UD 07/24/20 07/24/20 History [Vital 1.0 Bhavin] Past Med/Surg History Medical History (Updated 07/24/20 @ 21:38 by Jamal Salas MD) Anemia Asthma CAD (coronary atherosclerotic disease) CKD (chronic kidney disease) stage 4, GFR 15-29 ml/min Diabetes GERD (gastroesophageal reflux disease) HTN, goal to be determined Hyperparathyroidism Obesity Oropharyngeal dysphagia PVD (peripheral vascular disease) Surgical History H/O right coronary artery stent placement S/P abdominal hysterectomy S/P cholecystectomy Family History Other No pertinent family history in first degree relatives Social History Smoking Status: Unknown if ever smoked Hx Alcohol Use: No Hx Substance Use: No Preferred Language: Bengali Communication Ability: Effective Visual Impairment: Limited Hearing Ability: Hard of Hearing Property Officer Required: No Beliefs That Will Affect Care: None marital status: / Current Living Situation: Personal Care Facility Current Living Situation Comment: [facility] current occupational status: retired Feels Safe at Home: Yes Assistive Devices: Oxygen - Continuous Review of Systems Review of Systems: Unobtainable due to cognitive status Physical Exam Physical Exam: Lying in bed moaning Constitutional: + acute distress (Morning at times without any shortness of breath), + ill appearing and + thin Eyes: Closed ENMT: external ear and nose normal, oropharynx normal Neck: trachea midline, no thyromegaly Respiratory: + respiratory distress (Minimal shortness of breath) Auscultation: + diminished lung sounds (Bibasilar crackles) Cardiovascular: Rate/Rhythm: + abnormal rate and + abnormal rhythm Heart Sounds: + murmur Gastrointestinal (Abdomen): Inspection/Auscultation: normal bowel sounds; abdomen not distended Percussion/Palpation: abdomen soft; abdomen nontender Neurologic: Minimal response to vocal commands. Lymphatic: no cervical or axillary lymphadenopathy Results & Data Results & Data ([facility]) Vital Signs (Past 12 Hours) Vital Signs Temp Pulse Pulse Resp BP BP Pulse Ox 07/24/20 21:00 102 H 20 130/56 L 100 07/24/20 20:45 115 H 20 112/51 L 100 07/24/20 20:40 101 H 97 07/24/20 20:30 104 H 115/61 100 07/24/20 20:20 106 H 07/24/20 20:16 108 H 20 127/60 98 07/24/20 20:10 109 H 97 07/24/20 20:01 118 H 98 07/24/20 20:00 117 H 101 H 16 132/87 112/51 L 94 07/24/20 19:50 126 H 92 07/24/20 19:49 115 H 126/74 07/24/20 19:40 127 H 07/24/20 19:30 132 H 92 07/24/20 19:20 133 H 07/24/20 19:15 117 H 142/80 H 100 07/24/20 19:11 126 H 07/24/20 19:10 117 H 140/82 07/24/20 19:08 133 H 18 07/24/20 19:00 129 H 07/24/20 18:50 116 H 07/24/20 18:40 113 H 07/24/20 18:34 115 H 104/92 95 07/24/20 18:16 111 H 151/78 H 95 07/24/20 18:10 114 H 96 07/24/20 18:01 37.9 C H 115 H 28 H 159/80 H 95 07/24/20 18:00 175 H 159/80 H 95 07/24/20 17:50 118 H 07/24/20 17:45 126 H 141/84 H 07/24/20 17:40 104 H 98 07/24/20 17:31 101 H 07/24/20 17:30 114 H 139/77 07/24/20 17:28 96 H 64 L 07/24/20 17:25 103 H 144/114 H 77 L Laboratory Results Short CBC 07/24/20 Range/Units 20:19 WBC 16.74 H (4.8-10.8) K/uL Hgb 11.3 L (12.0-16.0) g/dL Hct 33.7 L (37-47) % Plt Count 225 (130-400) K/uL BMP 07/24/20 20:19 Sodium 133 L Potassium 4.2 Chloride 102 Carbon Dioxide 20 L BUN 70 H Creatinine 2.62 H Glucose 255 H Calcium 8.4 L Cardiac Enzymes 07/24/20 Range/Units 20:19 Troponin I 0.033 (0-0.045) ng/ml Liver Function 07/24/20 Range/Units 20:19 Total Bilirubin 0.6 (0.2-1) mg/dl AST 15 (15-37) U/L ALT 13 (12-78) U/L Alkaline Phosphatase 126 H (45-117) U/L Albumin 2.0 L (3.4-5.0) gm/dl Urine 07/24/20 Range/Units 17:55 Urine Color Dark Yellow Urine Appearance Clear (Clear) Urine pH 5.0 (4.5-7.5) Ur Specific [place] 1.020 (1.000-1.030) Urine Protein Trace H (Negative) Urine Glucose (UA) Negative (Negative) Code Status & VTE Plan VTE Prophylaxis Plan VTE Prophylaxis will be ordered: Yes
[2020-07-24] MEDS: DOXYCYCLINE HYCLATE 100 MG in DEXTROSE 5% 100 ML IV SCH (22:12)
[2020-07-24] MEDS ORDERED: [UNRECOGNIZED DRUG - OTHER] SCH (22:56)
[2020-07-24] MEDS ORDERED: ACETAMINOPHEN 325 MG TAB PO PRN (22:56)
[2020-07-24] MEDS ORDERED: ALBUT/IPRATROP 3MG/0.5MG NEB 3 ML VIAL INH PRN (22:56)
[2020-07-24] MEDS ORDERED: APPL SCH (22:56)
[2020-07-24] MEDS ORDERED: METOCLOPRAMIDE HCL 5 MG TABLET PO PRN (22:56)
[2020-07-24] MEDS ORDERED: INFLUENZA ADMINISTRATION CHARGE ONE (23:52)
[2020-07-24] MEDS ORDERED: PNEUMOCOCCAL ADMINISTRATION CHARGE ONE (23:52)
[2020-07-24] MEDS ORDERED: PNEUMOCOCCAL POLYSACCHARIDES 25 MCG/0.5 ML VIAL/SYR IM ONE (23:52)
[2020-07-24] MEDS ORDERED: INFLUENZA VIRUS QUAD VACCINE 0.5 ML SYR IM ONE (23:52)
[2020-07-25] MEDS ORDERED: CEFEPIME CONSULT ACTIVE PRN (00:16)
[2020-07-25] MEDS ORDERED: FIBERSOURCE HN 1.2 CAL 1000 ML BAG PO SCH (00:45)
[2020-07-25 07:47] LABS: Basophils # (auto) 0.03 K/uL (0-0.2); Basophils % (auto) 0.2 %; Eosinophils # (auto) 0.01 K/uL (0-0.5); Eosinophils % (auto) 0.1 %; Hematocrit (blood only) 32.3 % (37-47); Hemoglobin 10.6 g/dL (12.0-16.0); Immature Granulocytes # (auto) 0.09 K/uL (0.00-0.02); Immature Granulocytes % (auto) 0.5 %; Lymphocytes # (auto) 1.29 K/uL (1.2-3.4); Mean Corpuscular Hemoglobin 31.8 pg (25-34); Mean Corpuscular Hgb Conc 32.8 g/dL (32-36); Mean Platelet Volume 11.2 fL (7.4-10.4); Monocytes # (auto) 0.97 K/uL (0.11-0.59); Monocytes % (auto) 5.3 %; Neutrophils # (auto) 15.94 K/uL (1.4-6.5); Neutrophils % (auto) 86.9 %; Platelet Count 205 K/uL (130-400); RDW Coefficient of Variation 17.7 % (11.5-14.5); RDW Standard Deviation 61.6 fL (36.4-46.3); Red Blood Count 3.33 M/uL (4.2-5.4); White Blood Count 18.33 K/uL (4.8-10.8)
[2020-07-25] MEDS: LOSARTAN POTASSIUM 25 MG TAB PO SCH (07:48)
[2020-07-25] MEDS: LORATADINE 10 MG TAB PO SCH (07:49)
[2020-07-25] MEDS: PANTOprazole 40 MG TAB PO SCH (07:49)
[2020-07-25] MEDS: allopurinoL 100 MG TAB PO SCH (07:49)
[2020-07-25] MEDS: ASPIRIN 81 MG ECTAB PO SCH (07:50)
[2020-07-25] MEDS: FLUTICASONE PROPIONATE NA SPR 16 GM BTL SCH (07:51)
[2020-07-25] MEDS: MONTELUKAST SODIUM 10 MG TABLET PO SCH (07:51)
[2020-07-25] MEDS: EUCERIN CR 120 GM JAR EXT SCH ×2 (07:51→21:33)
[2020-07-25] MEDS: FLUTICASONE/VILANTEROL 200/25MCG 14 PUFFS/INHALER INH SCH (07:52)
[2020-07-25] MEDS: MICONAZOLE NITRATE POWDER 43 GM EXT PRN (07:53)
[2020-07-25] MEDS: NYSTATIN CR 15 GM TUBE EXT SCH ×2 (07:53→21:34)
[2020-07-25] MEDS: DOCUSATE SODIUM/SENNA 50/8.6MG TAB PO SCH ×2 (07:54→21:36)
[2020-07-25] MEDS: SODIUM CHLORIDE 0.65% NA SOLN 45 ML (OCEAN) SCH (07:54)
[2020-07-25] MEDS: CHLORHEXIDINE GLUCONATE 0.12% 480 ML MT SCH ×2 (07:54→21:34)
[2020-07-25] MEDS: INSULIN GLARGINE SOLOSTAR 100 UNITS/ML 3 ML PEN SQ SCH (07:55)
--- NOTE | 2020-07-25 08:03 | Electrocardiogram Report ---
Test Reason : Blood Pressure : / mmHG Vent. 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
[2020-07-25 08:18] LABS: BUN Creatinine Ratio 27.3 (10-20); Calcium 7.8 mg/dl (8.5-10.1); Est GFR (Non-African American) 14.6; Phosphorus 2.8 mg/dl (2.5-4.9)
--- NOTE | 2020-07-25 08:52 | Hospitalist Progress Note ---
Date of Service July 25, 2020 Assessment & Plan (1) Pneumonia: Met sepsis criteria on admission with tachycardia, high white count and confusion Bibasilar infiltrates on CXR Possible aspiration Blood cultures in lab Currently on cefepime and doxycycline Add flagyl for anerobic coverage Increased leukocytosis (2) Unresponsive episode: Reported to have un[facility] episode [facility] the [place] [facility] and also in the hospital Likely cause could be the illness Currently awake but not oriented or following commands (3) Oropharyngeal dysphagia: Status post PEG tube placement during last admission Continue with PEG tube feeding and medications Strict NPO (4) JOANN (acute kidney injury): JOANN on CKD3 Cr is 2.76 Suspended diuretic and losartan Increase Tube flushes to 200cc q4h for now Monitor and avoid nephrotoxins (5) (HFpEF) heart failure with preserved ejection fraction: Hold bumex in the setting of JOANN (6) Type 2 diabetes mellitus: Continue lantus and sliding scale q6h while on tube feeding Pharm on board (7) PVD (peripheral vascular disease): Has chronic skin changes bilaterally RN reported some sacral skin breakdown. Not able to assess this myself as patient was difficult to turn alone. Get wound care consult. Reassess later Regular turning and skin care (8) Asthma, moderate: No acute exacerbation DVT prophylaxis Subcu heparin CODE STATUS DNR Admission and Anticipated Discharge Date Admission Date: July 24, 2020 Subjective Patient seen and examined Patient was sleeping but arousable. Not oriented Unable to do review of systems due to level of consciousness Physical Exam Constitutional: + well hydrated; no acute distress Elderly woman Eyes: PERRL, conjunctivae normal, anicteric sclerae ENMT: external ear and nose normal, oropharynx normal Respiratory: no respiratory distress Auscultation: + diminished lung sounds Mild basilar crackles Cardiovascular: Rate/Rhythm: + irregularly irregular S1 S2 Gastrointestinal (Abdomen): normal bowel sounds, soft, nontender, no hepatosplenomegaly PEG in situ Musculoskeletal: Chronic stasis skin changes on legs bilaterally, no pedal edema Neurologic: Awake, not oriented, does not follow commands Results & Data Results & Data ([facility]) Vital Signs (Past 12 Hours) Vital Signs Temp Pulse Pulse Resp BP BP Pulse Ox 07/25/20 08:11 37.3 C 95 H 16 123/73 99 07/25/20 07:01 96 H 07/25/20 06:37 100 07/25/20 06:07 100 07/25/20 03:35 36.8 C 95 H 18 145/72 H 100 07/25/20 03:02 101 H 07/24/20 23:29 37.0 C 107 H 22 128/76 100 07/24/20 22:12 100 H 18 143/61 H 100 07/24/20 21:30 38.0 C H 100 H 18 134/65 100 07/24/20 21:00 102 H 20 130/56 L 100 Laboratory Results Laboratory Results - last 24 hr 07/24/20 07/24/20 07/24/20 17:55 19:19 19:19 WBC RBC Hgb POC Hgb Hct POC Hct MCV MCH MCHC RDW Std Deviation RDW Coeff of Adolph Plt Count MPV Immature Gran % (Auto) Neut % (Auto) Lymph % (Auto) [place] % (Auto) Eos % (Auto) Baso % (Auto) Neut # (Auto) Lymph # (Auto) [place] # (Auto) Eos # (Auto) Baso # (Auto) Immature Gran # (Auto) PT INR APTT PTT Ratio POC Sodium Sodium POC Potassium Potassium POC Chloride Chloride Carbon Dioxide POC Total CO2 Anion Gap POC Anion Gap POC BUN BUN Creatinine POC Creatinine Est Cr Clr Drug Dosing Est GFR ( Amer) Est GFR (Non-Af Amer) BUN/Creatinine Ratio Glucose POC Glucose POC Glucose (other) Lactate Calcium POC Ioniz Calcium Lucía Phosphorus Magnesium Total Bilirubin AST ALT Alkaline Phosphatase Troponin I Total Protein Albumin Globulin Albumin/Globulin Ratio TSH Urine Color Dark Yellow Urine Appearance Clear Urine pH 5.0 Ur Specific [place] 1.020 Urine Protein Trace H Urine Glucose (UA) Negative Urine Ketones Trace H Urine Blood Negative Urine Nitrite Positive A Urine Bilirubin Negative Urine Urobilinogen Negative Ur Leukocyte Esterase Negative Urine WBC (Auto) 1-5 Urine RBC (Auto) 0-4 U Hyaline Cast (Auto) 10-30 H U Epithel Cells (Auto) 20-30 H Urine Bacteria (Auto) Negative Nasal Screen MRSA (PCR) COVID-19 Eval Order Covid19 Done at [facility] COVID-19 PCR NEGATIVE Influ A Molecular Assay Influ B Molecular Assay 07/24/20 07/24/20 07/24/20 19:20 20:19 20:19 WBC 16.74 H RBC 3.53 L Hgb 11.3 L POC Hgb Hct 33.7 L POC Hct MCV 95.5 MCH 32.0 MCHC 33.5 RDW Std Deviation 59.8 H RDW Coeff of Adolph 17.3 H Plt Count 225 MPV 11.2 H Immature Gran % (Auto) 0.5 Neut % (Auto) 91.7 Lymph % (Auto) 3.5 [place] % (Auto) 4.2 Eos % (Auto) 0.0 Baso % (Auto) 0.1 Neut # (Auto) 15.34 H Lymph # (Auto) 0.59 L [place] # (Auto) 0.71 H Eos # (Auto) 0.00 Baso # (Auto) 0.02 Immature Gran # (Auto) 0.08 H PT 11.5 INR 1.1 APTT 31.0 PTT Ratio 1.1 POC Sodium Sodium POC Potassium Potassium POC Chloride Chloride Carbon Dioxide POC Total CO2 Anion Gap POC Anion Gap POC BUN BUN Creatinine POC Creatinine Est Cr Clr Drug Dosing Est GFR ( Amer) Est GFR (Non-Af Amer) BUN/Creatinine Ratio Glucose POC Glucose POC Glucose (other) Lactate Calcium POC Ioniz Calcium Lucía Phosphorus Magnesium Total Bilirubin AST ALT Alkaline Phosphatase Troponin I Total Protein Albumin Globulin Albumin/Globulin Ratio TSH Urine Color Urine Appearance Urine pH Ur Specific [place] Urine Protein Urine Glucose (UA) Urine Ketones Urine Blood Urine Nitrite Urine Bilirubin Urine Urobilinogen Ur Leukocyte Esterase Urine WBC (Auto) Urine RBC (Auto) U Hyaline Cast (Auto) U Epithel Cells (Auto) Urine Bacteria (Auto) Nasal Screen MRSA (PCR) COVID-19 Eval Order COVID-19 PCR Influ A Molecular Assay Negative Influ B Molecular Assay Negative 07/24/20 07/24/20 07/24/20 20:19 20:19 20:22 WBC RBC Hgb POC Hgb 14.3 Hct POC Hct 42 MCV MCH MCHC RDW Std Deviation RDW Coeff of Adolph Plt Count MPV Immature Gran % (Auto) Neut % (Auto) Lymph % (Auto) [place] % (Auto) Eos % (Auto) Baso % (Auto) Neut # (Auto) Lymph # (Auto) [place] # (Auto) Eos # (Auto) Baso # (Auto) Immature Gran # (Auto) PT INR APTT PTT Ratio POC Sodium 133 L Sodium 133 L POC Potassium 5.5 H Potassium 4.2 POC Chloride 99 L Chloride 102 Carbon Dioxide 20 L POC Total CO2 21 L Anion Gap 11.0 POC Anion Gap 19.0 POC BUN 73 H BUN 70 H Creatinine 2.62 H POC Creatinine 2.7 H Est Cr Clr Drug Dosing 15.1 Est GFR ( Amer) 18.1 Est GFR (Non-Af Amer) 15.6 BUN/Creatinine Ratio 26.8 H Glucose 255 H POC Glucose POC Glucose (other) 216 H Lactate 1.8 Calcium 8.4 L POC Ioniz Calcium Lucía 1.12 Phosphorus Magnesium 1.9 Total Bilirubin 0.6 AST 15 ALT 13 Alkaline Phosphatase 126 H Troponin I 0.033 Total Protein 6.0 L Albumin 2.0 L Globulin 4.0 Albumin/Globulin Ratio 0.5 L TSH 1.310 Urine Color Urine Appearance Urine pH Ur Specific [place] Urine Protein Urine Glucose (UA) Urine Ketones Urine Blood Urine Nitrite Urine Bilirubin Urine Urobilinogen Ur Leukocyte Esterase Urine WBC (Auto) Urine RBC (Auto) U Hyaline Cast (Auto) U Epithel Cells (Auto) Urine Bacteria (Auto) Nasal Screen MRSA (PCR) COVID-19 Eval Order COVID-19 PCR Influ A Molecular Assay Influ B Molecular Assay 07/25/20 07/25/20 07/25/20 04:10 07:08 07:08 WBC 18.33 H RBC 3.33 L Hgb 10.6 L POC Hgb Hct 32.3 L POC Hct MCV 97.0 MCH 31.8 MCHC 32.8 RDW Std Deviation 61.6 H RDW Coeff of Adolph 17.7 H Plt Count 205 MPV 11.2 H Immature Gran % (Auto) 0.5 Neut % (Auto) 86.9 Lymph % (Auto) 7.0 [place] % (Auto) 5.3 Eos % (Auto) 0.1 Baso % (Auto) 0.2 Neut # (Auto) 15.94 H Lymph # (Auto) 1.29 [place] # (Auto) 0.97 H Eos # (Auto) 0.01 Baso # (Auto) 0.03 Immature Gran # (Auto) 0.09 H PT INR APTT PTT Ratio POC Sodium Sodium 137 POC Potassium Potassium POC Chloride Chloride 105 Carbon Dioxide 23 POC Total CO2 Anion Gap 8.0 POC Anion Gap POC BUN BUN 75 H Creatinine 2.76 H POC Creatinine Est Cr Clr Drug Dosing 14.0 Est GFR ( Amer) 17.0 Est GFR (Non-Af Amer) 14.6 BUN/Creatinine Ratio 27.3 H Glucose 224 H POC Glucose POC Glucose (other) Lactate Calcium 7.8 L POC Ioniz Calcium Lucía Phosphorus 2.8 Magnesium Total Bilirubin AST ALT Alkaline Phosphatase Troponin I Total Protein Albumin Globulin Albumin/Globulin Ratio TSH Urine Color Urine Appearance Urine pH Ur Specific [place] Urine Protein Urine Glucose (UA) Urine Ketones Urine Blood Urine Nitrite Urine Bilirubin Urine Urobilinogen Ur Leukocyte Esterase Urine WBC (Auto) Urine RBC (Auto) U Hyaline Cast (Auto) U Epithel Cells (Auto) Urine Bacteria (Auto) Nasal Screen MRSA (PCR) Positive A COVID-19 Eval Order COVID-19 PCR Influ A Molecular Assay Influ B Molecular Assay 07/25/20 07/25/20 07/25/20 07:44 09:30 09:58 WBC RBC Hgb POC Hgb Hct POC Hct MCV MCH MCHC RDW Std Deviation RDW Coeff of Adolph Plt Count MPV Immature Gran % (Auto) Neut % (Auto) Lymph % (Auto) [place] % (Auto) Eos % (Auto) Baso % (Auto) Neut # (Auto) Lymph # (Auto) [place] # (Auto) Eos # (Auto) Baso # (Auto) Immature Gran # (Auto) PT INR APTT PTT Ratio POC Sodium Sodium POC Potassium Potassium 3.8 POC Chloride Chloride Carbon Dioxide POC Total CO2 Anion Gap POC Anion Gap POC BUN BUN Creatinine POC Creatinine Est Cr Clr Drug Dosing Est GFR ( Amer) Est GFR (Non-Af Amer) BUN/Creatinine Ratio Glucose POC Glucose 242 H 261 H POC Glucose (other) Lactate Calcium POC Ioniz Calcium Lucía Phosphorus Magnesium 1.8 Total Bilirubin AST ALT Alkaline Phosphatase Troponin I Total Protein Albumin Globulin Albumin/Globulin Ratio TSH Urine Color Urine Appearance Urine pH Ur Specific [place] Urine Protein Urine Glucose (UA) Urine Ketones Urine Blood Urine Nitrite Urine Bilirubin Urine Urobilinogen Ur Leukocyte Esterase Urine WBC (Auto) Urine RBC (Auto) U Hyaline Cast (Auto) U Epithel Cells (Auto) Urine Bacteria (Auto) Nasal Screen MRSA (PCR) COVID-19 Eval Order COVID-19 PCR Influ A Molecular Assay Influ B Molecular Assay
[2020-07-25] MEDS ORDERED: GLUCOSE 10 TABS/TUBE PO PRN (08:54)
[2020-07-25] MEDS ORDERED: GLUCOSE 40% GEL 15 GM TUBE PO PRN (08:54)
[2020-07-25] MEDS ORDERED: GLUCAGON FOR INJ 1 MG VIAL SQ PRN (08:54)
[2020-07-25] MEDS ORDERED: CARBOHYDRATES FOR HYPOGLYCEMIA PO PRN (08:54)
[2020-07-25] MEDS ORDERED: DEXTROSE 50% 50 ML SYRINGE IV PRN (08:54)
[2020-07-25] MEDS ORDERED: METOPROLOL TARTRATE 25 MG TAB PO SCH (09:00)
[2020-07-25] MEDS ORDERED: BUMETANIDE 1 MG TAB PO SCH (09:00)
[2020-07-25] MEDS ORDERED: amLODIPine BESYLATE 5 MG TAB PO SCH (09:00)
[2020-07-25] MEDS ORDERED: PHARMACY GLYCEMIC MGMT CONSULT PRN (09:07)
[2020-07-25] MEDS: INSULIN ASPART 100 UNITS/ML 3 ML PEN SC SCH ×4 (10:00→21:44)
[2020-07-25] MEDS: DOXYCYCLINE HYCLATE 100 MG in DEXTROSE 5% 100 ML IV SCH ×2 (10:01→22:51)
[2020-07-25 10:23] LABS: Potassium 3.8 mmol/L (3.5-5.1)
[2020-07-25 10:24] LABS: Magnesium 1.8 mg/dl (1.8-2.4)
[2020-07-25] MEDS: TUBE FEEDING WATER FLUSH GT SCH ×3 (13:14→20:38)
[2020-07-25] MEDS: metroNIDAZOLE 500 MG/100 ML BAG IV SCH ×2 (13:14→21:28)
--- NOTE | 2020-07-25 15:22 | Pharmacy Report ---
Glycemic Control Consultation - Date of Service July 25, 2020 - Scope Scope: Glycemic Pharmacist consulted for glycemic control and to write orders per [facility] inpatient glycemic control protocol. - Objective Weight: 81.5 kg Accuchecks BSG (last 24hrs): 07/24/20 07/24/20 07/25/20 20:19 20:22 07:08 Glucose 255 H 224 H POC Glucose POC Glucose (other) 216 H 07/25/20 07/25/20 07/25/20 07:44 09:58 13:12 Glucose POC Glucose 242 H 261 H 128 H POC Glucose (other) Laboratory Data (last 24hrs): 07/24/20 07/25/20 07/25/20 20:19 07:08 09:30 Potassium 4.2 3.8 Carbon Dioxide 20 L 23 Anion Gap 11.0 8.0 Creatinine 2.62 H 2.76 H Est Cr Clr Drug Dosing 15.1 14.0 - Recent Pertinent Medications Outpatient Anti-diabetic Regimen: * Basaglar 15 units daily * A1c = 6.1% on 07/03/20 Risk Factors for Insulin Resistance: * Steroids: none * Infection: Cefepime + Doxy * Pressors: none * Diet: Fibersource tube feeds @ 60 ml/hr * Mechanical Ventilation: N/A - Assessment & Plan Assessment & Plan: ASSESSMENT: * 89 y/o F admitted for bilateral Pneumonia. Patient was recently admitted here early this month. She has a history of diabetes managed at home on basal and bolus insulin. * Pt has needed 15 units of basal on previous admission while she was on Fibersource tube feeds running at 60 ml/hr. This dose was ordered before pharmacy was consulted. Will continue with the same dose of basal insulin for now. * Fasting BSG this AM was 242 mg/dl. Novolog was ordered with CF of 15 and CR of 10. * Pre-lunch BSG dropped significantly to 128 mg/dl. Therefore, Novolog parameters were loosened. * Of note, patient has some renal insufficiency currently compared to her previous admission. PLAN FOR INPATIENT GLYCEMIC CONTROL: * Basal insulin: * Lantus 15 units SQ QAM * Bolus insulin: loosened * NovoLog per scale ACHS or Q6hrs while NPO * Goal Range: Low 120 mg/dL - High 150 mg/dL * Correction Factor: 25 mg/dL/unit * Nutritional / Prandial insulin per carb ratio of 1 unit per 15 grams CHO consumed * Please note that the plan above was derived based on current level of insulin resistance and hospital stress. These recommendations are appropriate for inpatient admission only. Plan of care upon discharge will need to be reassessed to avoid potential outpatient hypo/hyperglycemia. Thank you.
[2020-07-25] MEDS: ACETAMINOPHEN 500 MG TAB PO SCH (21:36)
[2020-07-25] MEDS: MIRTAZAPINE TAB 15 MG TAB PO SCH (21:37)
[2020-07-25] MEDS: FIBERSOURCE HN 1.2 CAL 1000 ML BAG GT SCH (21:56)
[2020-07-25] MEDS: HEPARIN SOD 5,000 UNIT/0.5 ML VIAL SQ SCH (21:57)
[2020-07-25] MEDS: CEFEPIME 1,000 MG in SYRINGE 0 ML IV SCH (22:51)
[2020-07-26] MEDS ORDERED: SODIUM CHLORIDE 0.9% 500 ML IV SCH (00:30)
[2020-07-26] MEDS ORDERED: SODIUM CHLORIDE 0.9% 1000ML 1,000 ML IV SCH ×2 (00:30→07:15)
[2020-07-26] MEDS: TUBE FEEDING WATER FLUSH GT SCH ×6 (00:39→21:00)
[2020-07-26] MEDS: INSULIN ASPART 100 UNITS/ML 3 ML PEN SC SCH ×6 (00:53→20:39)
[2020-07-26] MEDS: metroNIDAZOLE 500 MG/100 ML BAG IV SCH ×3 (05:33→20:45)
[2020-07-26 07:01] LABS: Hematocrit (blood only) 28.9 % (37-47); Hemoglobin 9.4 g/dL (12.0-16.0); Mean Corpuscular Hemoglobin 31.4 pg (25-34); Mean Corpuscular Volume 96.7 fL (80-100); Mean Platelet Volume 10.1 fL (7.4-10.4); Platelet Count 144 K/uL (130-400); RDW Coefficient of Variation 17.7 % (11.5-14.5); Red Blood Count 2.99 M/uL (4.2-5.4); White Blood Count 11.96 K/uL (4.8-10.8)
[2020-07-26 07:02] LABS: Mean Corpuscular Hgb Conc 32.5 g/dL (32-36)
[2020-07-26 07:04] LABS: BUN Creatinine Ratio 32.9 (10-20); Calcium 7.6 mg/dl (8.5-10.1); Creatinine Clr Calc Pharmacy 15.5 ml/min; Est GFR (African American) 18.6; Potassium 4.3 mmol/L (3.5-5.1)
[2020-07-26] MEDS ORDERED: VANCOMYCIN HCL 1,750 MG in SODIUM CHLORIDE 0.9% 500 ML IV STA (08:20)
[2020-07-26] MEDS ORDERED: VANCOMYCIN CONSULT ACTIVE PRN (08:21)
--- NOTE | 2020-07-26 08:42 | Hospitalist Progress Note ---
Date of Service July 26, 2020 Assessment & Plan (1) Pneumonia: Met sepsis criteria on admission with tachycardia, high white count and confusion Bibasilar infiltrates on CXR Possible aspiration One of blood culture growing GPC in clusters today Repeat blood culture Got one dose of vancomycin. MRSA PCR on the positive blood cultures came back negative Continue cefepime, doxycycline and flagyl Improving leukocytosis (2) Unresponsive episode: Reported to have unresponsive episode at the [facility] and also in the hospital Likely cause could be the illness Currently awake but not oriented or following commands (3) Oropharyngeal dysphagia: Status post PEG tube placement during last admission Continue with PEG tube feeding and medications Strict NPO (4) JOANN (acute kidney injury): JOANN on CKD3 Cr is 2.76 Likely ATN in the setting of possible sepsis Suspended diuretic and losartan Hold all antihypertensives Discussed with mobile development manager. Dr Cano Continue increased Tube flushes at 250cc q4h for now Hold off IVF for now Monitor and avoid nephrotoxins (5) (HFpEF) heart failure with preserved ejection fraction: Hold bumex in the setting of JOANN (6) Type 2 diabetes mellitus: Continue lantus and sliding scale q6h while on tube feeding Pharm on board (7) PVD (peripheral vascular disease): Has chronic skin changes bilaterally Wound consult for sacral skin breakdown Regular turning and skin care (8) Asthma, moderate: No acute exacerbation DVT prophylaxis Subcu heparin CODE STATUS DNR Called son and updated him Admission and Anticipated Discharge Date Admission Date: July 24, 2020 Subjective Patient seen and examined Awake and confused. Does not follow commands Was started on IVF overnight due to poor urine output and hypotensive episode Last fever was on 07/24 at 38 Physical Exam Constitutional: + well hydrated; no acute distress Eyes: PERRL, conjunctivae normal, anicteric sclerae ENMT: external ear and nose normal, oropharynx normal Respiratory: no respiratory distress Auscultation: + diminished lung sounds Mild basilar crackles Cardiovascular: Rate/Rhythm: + irregularly irregular S1 S2 Gastrointestinal (Abdomen): normal bowel sounds, soft, nontender, no hepatosplenomegaly Musculoskeletal: Mild edema of UE bilaterally. No edema of LE but has chronic stasis changes Neurologic: Awake, alert, answers to name but does not know where she is or date. Does not follow commands Results & Data Results & Data ([facility]) Vital Signs (Past 12 Hours) Vital Signs Temp Pulse Pulse Resp BP BP Pulse Ox 07/26/20 07:35 37.1 C 94 H 16 143/79 H 96 07/26/20 07:25 89 07/26/20 03:30 37.3 C 93 H 20 104/68 91 07/26/20 00:18 82 07/25/20 23:20 37.2 C 90 16 83/33 L 93 Laboratory Results Laboratory Results - last 24 hr 07/24/20 07/25/20 07/25/20 20:19 13:12 16:18 WBC RBC Hgb Hct MCV MCH MCHC RDW Std Deviation RDW Coeff of Adolph Plt Count MPV Absolute Nucleated RBC Nucleated RBC % (auto) Platelet Estimate Sodium Potassium Chloride Carbon Dioxide Anion Gap BUN Creatinine Est Cr Clr Drug Dosing Est GFR ( Amer) Est GFR (Non-Af Amer) BUN/Creatinine Ratio Glucose POC Glucose 128 H 100 H Calcium Specimen Hemolysis Urine Color Urine Appearance Urine pH Ur Specific [place] Urine Protein Urine Glucose (UA) Urine Ketones Urine Blood Urine Nitrite Urine Bilirubin Urine Urobilinogen Ur Leukocyte Esterase Urine WBC (Auto) Urine RBC (Auto) U Hyaline Cast (Auto) U Epithel Cells (Auto) Urine Bacteria (Auto) Ur Renal Epithelial Cell Granular Casts Urine Yeast Bld Cult Staph aureus PCR Negative Blood Culture MRSA PCR Negative 07/25/20 07/26/20 07/26/20 20:18 00:07 05:05 WBC RBC Hgb Hct MCV MCH MCHC RDW Std Deviation RDW Coeff of Adolph Plt Count MPV Absolute Nucleated RBC Nucleated RBC % (auto) Platelet Estimate Sodium Potassium Chloride Carbon Dioxide Anion Gap BUN Creatinine Est Cr Clr Drug Dosing Est GFR ( Amer) Est GFR (Non-Af Amer) BUN/Creatinine Ratio Glucose POC Glucose 118 H 159 H 142 H Calcium Specimen Hemolysis Urine Color Urine Appearance Urine pH Ur Specific [place] Urine Protein Urine Glucose (UA) Urine Ketones Urine Blood Urine Nitrite Urine Bilirubin Urine Urobilinogen Ur Leukocyte Esterase Urine WBC (Auto) Urine RBC (Auto) U Hyaline Cast (Auto) U Epithel Cells (Auto) Urine Bacteria (Auto) Ur Renal Epithelial Cell Granular Casts Urine Yeast Bld Cult Staph aureus PCR Blood Culture MRSA PCR 07/26/20 07/26/20 07/26/20 05:39 05:39 06:53 WBC Cancelled 11.96 H RBC Cancelled 2.99 L Hgb Cancelled 9.4 L Hct Cancelled 28.9 L MCV Cancelled 96.7 MCH Cancelled 31.4 MCHC Cancelled 32.5 RDW Std Deviation Cancelled 62.0 H RDW Coeff of Adolph Cancelled 17.7 H Plt Count Cancelled 144 MPV Cancelled 10.1 Absolute Nucleated RBC Cancelled Nucleated RBC % (auto) Cancelled Platelet Estimate Cancelled Sodium 136 Potassium 4.3 Chloride 106 Carbon Dioxide 24 Anion Gap 6.0 BUN 84 H Creatinine 2.56 H Est Cr Clr Drug Dosing 15.5 Est GFR ( Amer) 18.6 Est GFR (Non-Af Amer) 16.0 BUN/Creatinine Ratio 32.9 H Glucose 147 H POC Glucose Calcium 7.6 L Specimen Hemolysis Urine Color Urine Appearance Urine pH Ur Specific [place] Urine Protein Urine Glucose (UA) Urine Ketones Urine Blood Urine Nitrite Urine Bilirubin Urine Urobilinogen Ur Leukocyte Esterase Urine WBC (Auto) Urine RBC (Auto) U Hyaline Cast (Auto) U Epithel Cells (Auto) Urine Bacteria (Auto) Ur Renal Epithelial Cell Granular Casts Urine Yeast Bld Cult Staph aureus PCR Blood Culture MRSA PCR 07/26/20 07/26/20 07/26/20 07:50 11:35 11:42 WBC RBC Hgb Hct MCV MCH MCHC RDW Std Deviation RDW Coeff of Adolph Plt Count MPV Absolute Nucleated RBC Nucleated RBC % (auto) Platelet Estimate Sodium Potassium Chloride Carbon Dioxide Anion Gap BUN Creatinine Est Cr Clr Drug Dosing Est GFR ( Amer) Est GFR (Non-Af Amer) BUN/Creatinine Ratio Glucose POC Glucose 181 H 144 H Calcium Specimen Hemolysis Urine Color Yellow Urine Appearance Cloudy A Urine pH 5.0 Ur Specific [place] 1.020 Urine Protein Trace H Urine Glucose (UA) Negative Urine Ketones Negative Urine Blood Negative Urine Nitrite Negative Urine Bilirubin Negative Urine Urobilinogen Negative Ur Leukocyte Esterase 1+ H Urine WBC (Auto) 5-10 H Urine RBC (Auto) 0-4 U Hyaline Cast (Auto) 1-5 U Epithel Cells (Auto) >30 H Urine Bacteria (Auto) Negative Ur Renal Epithelial Cell Not Reportable Granular Casts 1-5 H Urine Yeast Budding w/ Hyphae A Bld Cult Staph aureus PCR Blood Culture MRSA PCR
[2020-07-26] MEDS: ASPIRIN 81 MG ECTAB PO SCH (08:43)
[2020-07-26] MEDS: LORATADINE 10 MG TAB PO SCH (08:44)
[2020-07-26] MEDS: allopurinoL 100 MG TAB PO SCH (08:44)
[2020-07-26] MEDS: MONTELUKAST SODIUM 10 MG TABLET PO SCH (08:44)
[2020-07-26] MEDS: PANTOprazole 40 MG TAB PO SCH (08:44)
[2020-07-26] MEDS: FLUTICASONE/VILANTEROL 200/25MCG 14 PUFFS/INHALER INH SCH (08:45)
[2020-07-26] MEDS: DOCUSATE SODIUM/SENNA 50/8.6MG TAB PO SCH ×2 (08:45→21:01)
[2020-07-26] MEDS: FLUTICASONE PROPIONATE NA SPR 16 GM BTL SCH (08:46)
[2020-07-26] MEDS: HEPARIN SOD 5,000 UNIT/0.5 ML VIAL SQ SCH ×2 (08:46→21:06)
[2020-07-26] MEDS: EUCERIN CR 120 GM JAR EXT SCH ×2 (08:46→21:03)
[2020-07-26] MEDS: NYSTATIN CR 15 GM TUBE EXT SCH ×2 (08:47→21:05)
[2020-07-26] MEDS: SODIUM CHLORIDE 0.65% NA SOLN 45 ML (OCEAN) SCH (08:47)
[2020-07-26] MEDS: CHLORHEXIDINE GLUCONATE 0.12% 480 ML MT SCH ×2 (08:47→21:02)
[2020-07-26] MEDS: INSULIN GLARGINE SOLOSTAR 100 UNITS/ML 3 ML PEN SQ SCH (08:48)
--- NOTE | 2020-07-26 10:16 | Nephrology Consultation ---
Date of Consultation July 26, 2020 Assessment & Plan (1) JOANN (acute kidney injury): Patient with acute kidney injury likely due to ischemic ATN in setting of bacteremia. Urinalysis on admission showed a lot of hyaline casts but no RBCs. Management of ATN is supportive. Renal function expected to improve over the next couple of days as bacteremia is treated. -We will repeat urinalysis today -We will check renal ultrasound to complete work-up for acute kidney injury and make sure no obstructive uropathy -No need for IV fluids given history of CHF. Patient appears fairly euvolemic and blood pressure is stable (2) Bacteremia due to Gram-positive bacteria: Due to gram-positive cocci. Continue vancomycin and cefepime per primary team. Please narrow antibiotic coverage once sensitivities are back. Avoid supratherapeutic vancomycin levels which can be nephrotoxic (3) (HFpEF) heart failure with preserved ejection fraction: Patient with history of CHF with preserved EF. Agree with holding d iuretics. Will avoid IV fluids. No indication for albumin as well since patient is not hypotensive History of Present Illness Reason for Consultation: Acute kidney injury Requesting Physician: Amada Vieira MD Attending Physician: Amada Vieira MD History of Present Illness Female with history of hypertension, carotid disease, CHF, atrial fibrillation, peripheral vascular disease, dysphagia s/p PEG tube and CKD stage III with baseline creatinine 1.1 on 07/07/2020 who was admitted on 07/24/2020 from [facility] with altered mental status. She was found to have acute kidney injury with a creatinine of 2.6 on admission and slightly better at 2.5 today. Patient now has bacteremia with gram-positive cocci in clusters. She is receiving vancomycin and cefepime. She is able to give history. She denied any pain or shortness of breath. She is on tube feeds. She is n.p.o. Urinalysis on admission showed no RBCs but a lot of hyaline casts. Patient has pressure ulcers in the gluteal region. Allergies Allergy/AdvReac Type Severity Reaction Status Date / Time clofibrate Allergy Severe SWELLING Verified 07/24/20 19:09 rabeprazole Allergy Intermediate SOB/COUGHING Verified 07/24/20 19:09 AND THROAT FELT TIGHT/ABD. CRAMPING fexofenadine Allergy Mild RASH Verified 07/24/20 19:09 Fibrate Anti-Lipidemics Allergy Mild SWELLING Verified 07/24/20 19:09 fluvastatin Allergy Mild HIVES Verified 07/24/20 19:09 metformin Allergy Mild URINARY Verified 07/24/20 19:09 FREQUENCY/RASH/ITCH morphine Allergy Mild ITCHY/HIVES Verified 07/24/20 19:09 moxifloxacin Allergy Mild ITCHY/NAUSE Verified 07/24/20 19:09 A Penicillins Allergy Mild HIVES Verified 07/24/20 19:09 Quinolones Allergy Mild RASH Verified 07/24/20 19:09 amoxicillin Allergy Unknown Unknown Verified 07/24/20 19:09 chlorpropamide Allergy Unknown UNKNOWN Verified 07/24/20 19:09 NSAIDS (Non-Steroidal Allergy Unknown UNKNOWN Verified 07/24/20 19:09 Anti-Inflamma ranitidine Allergy Unknown Unknown Verified 07/24/20 19:09 Sulfa (Sulfonamide Allergy Unknown UNKNOWN Verified 07/24/20 19:09 Antibiotics) blue dye AdvReac Mild MYALGIAS Verified 07/24/20 19:09 AND CRAMPS codeine AdvReac Mild FEELS Verified 07/24/20 19:09 "HIGH" ON/ITCHING dexlansoprazole AdvReac Mild MYALGIAS Verified 07/24/20 19:09 AND CRAMPS gemfibrozil AdvReac Mild ABDOMINAL Verified 07/24/20 19:09 CRAMPS AND DIZZINESS lisinopril AdvReac Mild COUGH Verified 07/24/20 19:09 lorazepam AdvReac Mild 0 Verified 07/24/20 19:09 rofecoxib AdvReac Mild INDIGESTION Verified 07/24/20 19:09 Home Medications Home Medications Medication Instructions Recorded Confirmed Type montelukast 10 mg tablet 10 mg PO DAILY 01/22/19 07/24/20 History allopurinol 200 mg PO DAILY 03/05/19 07/24/20 History fluticasone propionate [Flonase 2 spray INTRANASAL DAILY 03/05/19 07/24/20 History Allergy Relief] loratadine 10 mg PO DAILY 03/05/19 07/24/20 History sennosides-docusate sodium 2 tab PO BID 03/05/19 07/24/20 History [Senna-S] Aroma Therapy See Rx Instructions .ROUTE .COMPLEX 06/23/20 07/24/20 History Breo Ellipta 1 inh INHALATION DAILY 06/23/20 07/24/20 History Eucerin 1 applic TOPICAL BID 06/23/20 07/24/20 History Vitron-C 1 tab PO DAILY 06/23/20 07/24/20 History acetaminophen 500 mg PO HS MDD 3000 MG APAP/24 06/23/20 07/24/20 History HOURS acetaminophen 650 mg PO Q4H PRN MDD 3000 MG 06/23/20 07/24/20 History APAP/24 HOURS amlodipine 5 mg PO DAILY 06/23/20 07/24/20 History aspirin 81 mg PO DAILY 06/23/20 07/24/20 History azelastine 2 spray INTRANASAL AMHS 06/23/20 07/24/20 History bumetanide 1 mg PO DAILY 06/23/20 07/24/20 History ipratropium-albuterol 3 ml INHALATION Q4H PRN 06/23/20 07/24/20 History mirtazapine 30 mg PO HS 06/23/20 07/24/20 History omeprazole 40 mg PO QAM 06/23/20 07/24/20 History ondansetron HCl [Zofran] 4 mg PO Q6H PRN 06/23/20 07/24/20 History sodium chloride [Saline Nasal] 2 spray INTRANASAL DIRECTED 06/23/20 07/24/20 History insulin glargine [Lantus Solostar 15 unit SUBCUT DAILY 30 Days #4.5 07/07/20 07/24/20 Rx U-100 Insulin] ml losartan 12.5 mg PO DAILY #0 tab 07/07/20 07/24/20 Rx metoclopramide HCl 5 mg PO BIDM PRN #10 tab 07/07/20 07/24/20 Rx metoprolol tartrate 12.5 mg PO QAM #0 tab 07/07/20 07/24/20 Rx miconazole nitrate [Desenex] 1 applic EXT PRN PRN 30 Days #43 g 07/07/20 07/24/20 Rx nystatin 1 applic EXT BID #30 g 07/07/20 07/24/20 Rx chlorhexidine gluconate 15 ml PO BID 07/24/20 07/24/20 History glucagon (human recombinant) 0 mg SUBCUT UD 07/24/20 07/24/20 History [Glucagon Emergency Kit (human)] nut.tx.impaired dige fxn-fiber 0 ea FEEDING TUBE UD 07/24/20 07/24/20 History [Vital 1.0 Bhavin] Patient History Medical History Anemia Asthma CAD (coronary atherosclerotic disease) CKD (chronic kidney disease) stage 4, GFR 15-29 ml/min Diabetes GERD (gastroesophageal reflux disease) HTN, goal to be determined Hyperparathyroidism Obesity Oropharyngeal dysphagia PVD (peripheral vascular disease) Surgical History H/O right coronary artery stent placement S/P abdominal hysterectomy S/P cholecystectomy Family History Other No pertinent family history in first degree relatives Social History Smoking Status: Unknown if ever smoked Hx Alcohol Use: No Hx Substance Use: No Preferred Language: [place] Communication Ability: Unable Visual Impairment: Limited Hearing Ability: Hard of Hearing Aircraft 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 Gastrointestinal: Abdomen is soft, non distended, non tender, bowel sounds are present. PEG tube present CVS: Regular rate and rhythm. No murmurs, rubs or gallops Musculoskeletal: No joint or muscle tenderness Extremities: Non tender, 1+ upper extremity edema, peripheral pulses are present Neuro: Oriented, no tremors, no focal neurological deficits Skin: No rashes, gluteal pressure ulcer Results & Data ([facility]) Vital Signs (Past 12 Hours) Vital Signs Temp Pulse Pulse Resp BP BP Pulse Ox 07/26/20 07:35 37.1 C 94 H 16 143/79 H 96 07/26/20 07:25 89 07/26/20 03:30 37.3 C 93 H 20 104/68 91 07/26/20 00:18 82 07/25/20 23:20 37.2 C 90 16 83/33 L 93 Laboratory Results 07/26/20 05:39 07/26/20 07/26/20 05:39 06:53 WBC Cancelled 11.96 H RBC Cancelled 2.99 L MCV Cancelled 96.7 MCH Cancelled 31.4 MCHC Cancelled 32.5 RDW Std Deviation Cancelled 62.0 H RDW Coeff of Adolph Cancelled 17.7 H Plt Count Cancelled 144 MPV Cancelled 10.1
--- NOTE | 2020-07-26 11:00 | Ultrasound Report ---
US renal/blad retro comp HISTORY: 89 years-old Female JOANN acute kidney injury COMPARISON: CT abdomen and pelvis 06/24/2020 TECHNIQUE: Multiple real-time sonographic images of the kidneys and urinary bladder were obtained ass essing grayscale appearance and color flow FINDINGS: The right kidney measures 9.8 x 5.6 x 5.2 cm and demonstrates mild cortical thinning. No right-sided renal calculi, hydronephrosis or suspicious mass lesion. The left kidney measures 11.6 x 4.2 x 4.0 cm and also demonstrates mild cortical thinning without renal calculi, hydronephrosis or suspicious mas s lesion. Calcified renal vessels are noted bilaterally. Decompressed urinary bladder is not well visualized. IMPRESSION: 1. No renal calculi or hydronephrosis. 2. Bilateral renal calcifications with cortical thinning. 3. Decompressed urinary bladder. ACT 112: Negative or not required by law. The above report was generated using voice recognition software. It may contain grammatical, syntax o r spelling errors. Electronically signed by: Beto Eddy M.D. 07/26/2020 10:59 AM
[2020-07-26 11:48] LABS: Appearance Urine Cloudy (Clear); Bacteria Urine Automated Negative (Negative); Bilirubin Urine Negative (Negative); Blood Urine Negative (Negative); Color Urine Yellow; Epithelial Cell Urine Auto >30 /lpf (0-5); Glucose Urine UA Negative (Negative); Ketones Urine Negative (Negative); Leukocyte Esterase Urine 1+ (Negative); Nitrite Urine Negative (Negative); Protein Urine Trace (Negative); RBC Urine Automated 0-4 /hpf (0-4); Urobilinogen Urine Negative (Negative)
--- NOTE | 2020-07-26 14:42 | Pharmacy Report ---
Pharmacy Glycemic Short Note 2 - Date of Service July 26, 2020 - Glycemic Short BSG Results (Last 24 hours): 07/25/20 07/25/20 07/26/20 16:18 20:18 00:07 Glucose POC Glucose 100 H 118 H 159 H 07/26/20 07/26/20 07/26/20 05:05 05:39 07:50 Glucose 147 H POC Glucose 142 H 181 H 07/26/20 11:42 Glucose POC Glucose 144 H OUTPATIENT ANTIDIABETIC REGIMEN: * Basaglar 15 units SQ QAM * Novolog sliding scale ASSESSMENT: * Patient is continual tube feeds- Fibersource running at 60 ml/hr. * Patient received total 36 units of insulin yesterday: 15 units basal + 21 units bolus. * Fasting BSG this AM 147 and pre-breakfast BSG= 181. Continue same basal but slightly tightened Novolog CF this AM. * Pre-lunch BSG at goal = 144. PLAN FOR INPATIENT GLYCEMIC CONTROL: * Hold outpatient oral diabetes medications * Basal insulin * Lantus 15 units SQ QAM * Bolus insulin: CF tightened * NovoLog per scale Q4h while on tube feeds. * Goal Range: Low 120 mg/dL - High 150 mg/dL * Correction Factor: 20 mg/dL/unit * Nutritional / Prandial insulin per carb ratio of 1 unit per 15 grams CHO consumed PLAN FOR DISCHARGE: * TBD
[2020-07-26] MEDS: FIBERSOURCE HN 1.2 CAL 1000 ML BAG GT SCH (17:17)
[2020-07-26] MEDS: MIRTAZAPINE TAB 15 MG TAB PO SCH (21:03)
[2020-07-26] MEDS: ACETAMINOPHEN 500 MG TAB PO SCH (21:03)
[2020-07-26] MEDS: CEFEPIME 1,000 MG in SYRINGE 0 ML IV SCH (21:14)
[2020-07-26] MEDS: DOXYCYCLINE HYCLATE 100 MG in DEXTROSE 5% 100 ML IV SCH (22:24)
[2020-07-27] MEDS: TUBE FEEDING WATER FLUSH GT SCH ×6 (00:55→20:45)
[2020-07-27] MEDS: INSULIN ASPART 100 UNITS/ML 3 ML PEN SC SCH ×3 (01:29→09:04)
[2020-07-27] MEDS: metroNIDAZOLE 500 MG/100 ML BAG IV SCH ×3 (05:29→21:59)
[2020-07-27 06:31] LABS: Hematocrit (blood only) 29.7 % (37-47); Hemoglobin 9.4 g/dL (12.0-16.0); Mean Corpuscular Hgb Conc 31.6 g/dL (32-36); Mean Platelet Volume 10.9 fL (7.4-10.4); Platelet Count 148 K/uL (130-400); RDW Coefficient of Variation 18.2 % (11.5-14.5); RDW Standard Deviation 64.7 fL (36.4-46.3); Red Blood Count 3.03 M/uL (4.2-5.4)
[2020-07-27 06:54] LABS: BUN Creatinine Ratio 39.9 (10-20); Calcium 7.6 mg/dl (8.5-10.1); Creatinine Clr Calc Pharmacy 18.9 ml/min; Est GFR (African American) 23.6; Est GFR (Non-African American) 20.4; Potassium 4.6 mmol/L (3.5-5.1)
[2020-07-27] MEDS: FLUTICASONE/VILANTEROL 200/25MCG 14 PUFFS/INHALER INH SCH (07:51)
[2020-07-27] MEDS: DOCUSATE SODIUM/SENNA 50/8.6MG TAB PO SCH ×2 (07:54→21:52)
[2020-07-27] MEDS: MICONAZOLE NITRATE POWDER 43 GM EXT PRN (07:56)
[2020-07-27] MEDS: FLUTICASONE PROPIONATE NA SPR 16 GM BTL SCH (07:58)
[2020-07-27] MEDS: HEPARIN SOD 5,000 UNIT/0.5 ML VIAL SQ SCH ×2 (07:58→21:56)
[2020-07-27] MEDS: NYSTATIN CR 15 GM TUBE EXT SCH ×2 (07:59→21:55)
[2020-07-27] MEDS: CHLORHEXIDINE GLUCONATE 0.12% 480 ML MT SCH ×2 (07:59→21:55)
[2020-07-27] MEDS: allopurinoL 100 MG TAB PO SCH (08:00)
[2020-07-27] MEDS: LORATADINE 10 MG TAB PO SCH (08:00)
[2020-07-27] MEDS: MONTELUKAST SODIUM 10 MG TABLET PO SCH (08:00)
[2020-07-27] MEDS: EUCERIN CR 120 GM JAR EXT SCH ×2 (08:01→21:54)
[2020-07-27] MEDS: INSULIN GLARGINE SOLOSTAR 100 UNITS/ML 3 ML PEN SQ SCH (08:01)
[2020-07-27] MEDS: PANTOprazole 40 MG TAB PO SCH (08:04)
[2020-07-27] MEDS ORDERED: Nursing to Pharmacy Communication SCH (09:45)
--- NOTE | 2020-07-27 09:51 | Hospitalist Progress Note ---
Date of Service July 27, 2020 Assessment & Plan (1) Pneumonia: Met sepsis criteria on admission with tachycardia, high white count and confusion Bibasilar infiltrates on CXR Possible aspiration One of blood culture growing GPC in clusters Repeat blood culture still in lab Got one dose of vancomycin. MRSA PCR on the positive blood cultures came back negative Continue cefepime, doxycycline and flagyl Leukocytosis improved (2) Unresponsive episode: Reported to have unresponsive episode at the skilled nursing and also in the hospital Likely due to current illness - sepsis from pneumonia, ?? bacteremia Mental status improved slightly compared to yesterday Per discussion with patient's son yesterday, baseline mental status is usually at least alert and oriented to person and place and able to hold conversation but has been weaker since recent hospitalization (3) Oropharyngeal dysphagia: Status post PEG tube placement during last admission Continue with PEG tube feeding and medications Strict NPO (4) JOANN (acute kidney injury): JOANN on CKD3 Cr 2.62 on admission >>2.76 Likely ATN in the setting of possible sepsis Currently improving, Cr is 2.10 today Continue to hold diuretic and losartan 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 BP currently low normal (6) Type 2 diabetes mellitus: Continue lantus and sliding scale q6h while on tube feeding Pharm on board (7) PVD (peripheral vascular disease): Has chronic skin changes bilaterally Wound consult for sacral skin breakdown Regular turning and skin care (8) Asthma, moderate: No acute exacerbation DVT prophylaxis Subcu heparin CODE STATUS DNR Admission and Anticipated Discharge Date Admission Date: July 24, 2020 Subjective Patient seen and examined Patient is more awake and interactive today. She is oriented to person only but follows simple commands such as 'raise your hand','squeeze my finger' However, ROS still limited as patient occasionally does not respond appropriately and gives opposite replies to same questions when repeated. Physical Exam Constitutional: + well hydrated; no acute distress Eyes: PERRL, conjunctivae normal, anicteric sclerae ENMT: external ear and nose normal, oropharynx normal Respiratory: no respiratory distress Auscultation: + diminished lung sounds Cardiovascular: Rate/Rhythm: + irregularly irregular S1 S2 Gastrointestinal (Abdomen): normal bowel sounds, soft, nontender, no hepatosplenomegaly Musculoskeletal: UE edema b/l with bruises at iv site No LE edema with chronic stasis changes Neurologic: Alert and oriented to person only, confused, occasionally follows simple commands Genitourinary: Espinosa in situ Results & Data Results & Data ([facility]) Vital Signs (Past 12 Hours) Vital Signs Temp Pulse Pulse Resp BP BP Pulse Ox 07/27/20 08:14 37.0 C 96 H 18 91/45 L 94 07/27/20 07:27 74 07/27/20 03:37 37 C 88 18 136/76 95 07/26/20 22:28 37.1 C 88 16 99/49 L 93 07/26/20 22:20 99 H Laboratory Results Laboratory Results - last 24 hr 07/26/20 07/26/20 07/26/20 11:35 11:42 16:35 WBC RBC Hgb Hct MCV MCH MCHC RDW Std Deviation RDW Coeff of Aodlph Plt Count MPV Sodium Potassium Chloride Carbon Dioxide Anion Gap BUN Creatinine Est Cr Clr Drug Dosing Est GFR ( Amer) Est GFR (Non-Af Amer) BUN/Creatinine Ratio Glucose POC Glucose 144 H 126 H Calcium Urine Color Yellow Urine Appearance Cloudy A Urine pH 5.0 Ur Specific [place] 1.020 Urine Protein Trace H Urine Glucose (UA) Negative Urine Ketones Negative Urine Blood Negative Urine Nitrite Negative Urine Bilirubin Negative Urine Urobilinogen Negative Ur Leukocyte Esterase 1+ H Urine WBC (Auto) 5-10 H Urine RBC (Auto) 0-4 U Hyaline Cast (Auto) 1-5 U Epithel Cells (Auto) >30 H Urine Bacteria (Auto) Negative Ur Renal Epithelial Cell Not Reportable Granular Casts 1-5 H Urine Yeast Budding w/ Hyphae A 07/26/20 07/27/20 07/27/20 20:24 01:27 05:24 WBC RBC Hgb Hct MCV MCH MCHC RDW Std Deviation RDW Coeff of Adolph Plt Count MPV Sodium Potassium Chloride Carbon Dioxide Anion Gap BUN Creatinine Est Cr Clr Drug Dosing Est GFR ( Amer) Est GFR (Non-Af Amer) BUN/Creatinine Ratio Glucose POC Glucose 105 H 138 H 144 H Calcium Urine Color Urine Appearance Urine pH Ur Specific [place] Urine Protein Urine Glucose (UA) Urine Ketones Urine Blood Urine Nitrite Urine Bilirubin Urine Urobilinogen Ur Leukocyte Esterase Urine WBC (Auto) Urine RBC (Auto) U Hyaline Cast (Auto) U Epithel Cells (Auto) Urine Bacteria (Auto) Ur Renal Epithelial Cell Granular Casts Urine Yeast 07/27/20 07/27/20 07/27/20 06:08 06:08 09:02 WBC 10.10 RBC 3.03 L Hgb 9.4 L Hct 29.7 L MCV 98.0 MCH 31.0 MCHC 31.6 L RDW Std Deviation 64.7 H RDW Coeff of Adolph 18.2 H Plt Count 148 MPV 10.9 H Sodium 134 L Potassium 4.6 Chloride 106 Carbon Dioxide 23 Anion Gap 5.0 BUN 84 H Creatinine 2.10 H D Est Cr Clr Drug Dosing 18.9 Est GFR ( Amer) 23.6 Est GFR (Non-Af Amer) 20.4 BUN/Creatinine Ratio 39.9 H Glucose 166 H POC Glucose 207 H Calcium 7.6 L Urine Color Urine Appearance Urine pH Ur Specific [place] Urine Protein Urine Glucose (UA) Urine Ketones Urine Blood Urine Nitrite Urine Bilirubin Urine Urobilinogen Ur Leukocyte Esterase Urine WBC (Auto) Urine RBC (Auto) U Hyaline Cast (Auto) U Epithel Cells (Auto) Urine Bacteria (Auto) Ur Renal Epithelial Cell Granular Casts Urine Yeast
[2020-07-27] MEDS: DOXYCYCLINE HYCLATE 100 MG in DEXTROSE 5% 100 ML IV SCH ×2 (10:12→22:59)
[2020-07-27] MEDS: SODIUM CHLORIDE 0.65% NA SOLN 45 ML (OCEAN) SCH (10:15)
--- NOTE | 2020-07-27 10:16 | Progress Notes ---
DATE: 07/27/2020 NEPHROLOGY PROGRESS NOTE SUBJECTIVE: The patient's renal function got slightly better. She is making increasing amount of urine. Blood pressure seems somewhat low. She denies any acute complaints, but she is not really completely oriented to give me any detailed account of her medical problem. OBJECTIVE: VITAL SIGNS: Blood pressure 91/45, pulse rate 96, temperature 37 degrees Celsius, 94% on room air. HEENT: Mucous membranes moist. NECK: Supple. No jugular venous distention. CHEST: Bilateral decreased breath sounds, but very poor inspiratory effort. CARDIOVASCULAR: S1 and S2, regular. ABDOMEN: Soft, nontender. EXTREMITIES: Show trace edema. LABORATORY TEST: From this morning was reviewed and shows decreasing creatinine. Sodium is 134, potassium 4.6, BUN is down to 84, creatinine is down to 2.1. Hemoglobin 9.4, WBC count is trending down and is now 10,000. ASSESSMENT AND PLAN: An 89-year-old female with acute kidney injury secondary to acute tubular necrosis in the setting of bacteremia and sepsis. Acute renal failure: This is getting better with increasing urine output and decreasing creatinine. Continue current management. Renal ultrasound is pending, but I have very low suspicion of this being obstructive uropathy. Continue antibiotics. Continue daily laboratories and input/output charting.
--- NOTE | 2020-07-27 10:18 | Pharmacy Report ---
Pharmacy Glycemic Short Note 2 - Date of Service July 27, 2020 - Glycemic Short BSG Results (Last 24 hours): 07/26/20 07/26/20 07/26/20 11:42 16:35 20:24 Glucose POC Glucose 144 H 126 H 105 H 07/27/20 07/27/20 07/27/20 01:27 05:24 06:08 Glucose 166 H POC Glucose 138 H 144 H 07/27/20 09:02 Glucose POC Glucose 207 H OUTPATIENT ANTIDIABETIC REGIMEN: * Basaglar 15 units SQ QAM * Novolog sliding scale ASSESSMENT: 07/27/20 * No changes to stressors noted * BSG's trended down nicely after started covering CHO in tubefeeds yesterday. CHO in TF not covered overnight x2-3 checks therefore BSG elevated this AM. Anticipate improvement with again covering CHO in TF * OK to change from q4h to q6h checks, but will then also switch from Novolog to regular insulin to provide coverage for the full 6 hour interval 07/26/20 * Patient is continual tube feeds- Fibersource running at 60 ml/hr. * Patient received total 36 units of insulin yesterday: 15 units basal + 21 units bolus. * Fasting BSG this AM 147 and pre-breakfast BSG= 181. Continue same basal but slightly tightened Novolog CF this AM. * Pre-lunch BSG at goal = 144. PLAN FOR INPATIENT GLYCEMIC CONTROL: * Hold outpatient oral diabetes medications * Basal insulin * Lantus 15 units SQ QAM * Bolus insulin: lengthen interval and change to regular insulin * Regular insulin per scale Q6h while on tube feeds. * Goal Range: Low 120 mg/dL - High 150 mg/dL * Correction Factor: 20 mg/dL/unit * Nutritional / Prandial insulin per carb ratio of 1 unit per 15 grams CHO consumed (including CHO in tubefeeds) PLAN FOR DISCHARGE: * TBD
[2020-07-27] MEDS: ASPIRIN 81 MG CHEW PEG SCH (12:25)
[2020-07-27] MEDS: FIBERSOURCE HN 1.2 CAL 1000 ML BAG GT SCH (12:26)
[2020-07-27] MEDS: INSULIN HUMAN REGULAR SC SCH ×2 (12:56→18:02)
[2020-07-27] MEDS ORDERED: FIBERSOURCE HN 1.2 CAL 1000 ML BAG GT SCH (13:15)
[2020-07-27] MEDS: ASPIRIN 81 MG ECTAB PO SCH (13:56)
[2020-07-27] MEDS: CEFEPIME 1,000 MG in SYRINGE 0 ML IV SCH (21:50)
[2020-07-27] MEDS: ACETAMINOPHEN 500 MG TAB PO SCH (21:51)
[2020-07-27] MEDS: MIRTAZAPINE TAB 15 MG TAB PO SCH (21:53)
[2020-07-28] MEDS: INSULIN HUMAN REGULAR SC SCH ×4 (00:36→19:14)
[2020-07-28] MEDS: TUBE FEEDING WATER FLUSH GT SCH ×6 (00:55→20:58)
[2020-07-28] MEDS: metroNIDAZOLE 500 MG/100 ML BAG IV SCH ×3 (04:40→20:58)
[2020-07-28] MEDS ORDERED: Nursing to Pharmacy Communication SCH ×2 (07:00→07:30)
[2020-07-28] MEDS: DOCUSATE SODIUM/SENNA 50/8.6MG TAB PO SCH ×2 (08:37→21:01)
[2020-07-28] MEDS: LANSOPRAZOLE 30 MG SOLTAB PEG SCH (08:37)
[2020-07-28] MEDS: ASPIRIN 81 MG CHEW PEG SCH (08:37)
[2020-07-28] MEDS: MONTELUKAST SODIUM 10 MG TABLET PO SCH (08:37)
[2020-07-28] MEDS: FLUTICASONE PROPIONATE NA SPR 16 GM BTL SCH (08:38)
[2020-07-28] MEDS: FLUTICASONE/VILANTEROL 200/25MCG 14 PUFFS/INHALER INH SCH (08:38)
[2020-07-28] MEDS: allopurinoL 100 MG TAB PO SCH (08:38)
[2020-07-28] MEDS: EUCERIN CR 120 GM JAR EXT SCH ×2 (08:40→20:59)
[2020-07-28] MEDS: SODIUM CHLORIDE 0.65% NA SOLN 45 ML (OCEAN) SCH (08:40)
[2020-07-28] MEDS: NYSTATIN CR 15 GM TUBE EXT SCH ×2 (08:40→21:09)
[2020-07-28] MEDS: HEPARIN SOD 5,000 UNIT/0.5 ML VIAL SQ SCH ×2 (08:40→20:59)
[2020-07-28] MEDS: CHLORHEXIDINE GLUCONATE 0.12% 480 ML MT SCH ×2 (08:40→21:00)
[2020-07-28] MEDS: LORATADINE 10 MG TAB PO SCH (08:41)
[2020-07-28] MEDS: INSULIN GLARGINE SOLOSTAR 100 UNITS/ML 3 ML PEN SQ SCH (08:42)
[2020-07-28 09:03] LABS: Hematocrit (blood only) 32.3 % (37-47); Hemoglobin 10.5 g/dL (12.0-16.0); Mean Corpuscular Hemoglobin 31.4 pg (25-34); Mean Corpuscular Volume 96.7 fL (80-100); Mean Platelet Volume 10.9 fL (7.4-10.4); Platelet Count 176 K/uL (130-400); Red Blood Count 3.34 M/uL (4.2-5.4); White Blood Count 9.84 K/uL (4.8-10.8)
[2020-07-28 09:06] LABS: BUN Creatinine Ratio 45.3 (10-20); Creatinine Clr Calc Pharmacy 24.1 ml/min; Est GFR (African American) 30.9; Est GFR (Non-African American) 26.7; Potassium 5.3 mmol/L (3.5-5.1)
[2020-07-28 09:24] LABS: Mean Corpuscular Hgb Conc 32.5 g/dL (32-36)
--- NOTE | 2020-07-28 09:59 | Hospitalist Progress Note ---
Date of Service July 28, 2020 Assessment & Plan (1) Pneumonia: Met sepsis criteria on admission with tachycardia, high white count and confusion Bibasilar infiltrates on CXR Possible aspiration One of blood culture grew GPC in clusters Got one dose of vancomycin. MRSA PCR on the positive blood cultures came back negative +Blood culture finalized as CONS. Likely contaminant Repeat blood culture negative Continue cefepime, doxycycline and flagyl Day 4 Leukocytosis resolved (2) Unresponsive episode: Reported to have unresponsive episode at the half-way and also in the hospital Likely due to current illness - sepsis from pneumonia, ?? bacteremia Mental status continue to improve Per discussion with patient's son, baseline mental status is usually at least alert and oriented to person and place and able to hold conversation but has b een weaker since recent hospitalization (3) Oropharyngeal dysphagia: Status post PEG tube placement during last admission Continue with PEG tube feeding and medications Strict NPO (4) JOANN (acute kidney injury): JOANN on CKD3 Cr 2.62 on admission >>2.76 Likely ATN in the setting of possible sepsis Currently improving, Cr is 1.68 today Continue to hold diuretic and losartan Engineering Aide on 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 BP currently stable (6) Type 2 diabetes mellitus: Continue lantus and sliding scale q6h while on tube feeding Pharm on board (7) PVD (peripheral vascular disease): Has chronic skin changes bilaterally Wound consult for sacral skin breakdown Regular turning and skin care (8) Asthma, moderate: No acute exacerbation Urinary retention Discussed with RN. Plan to assess and possible dc godfrey once patient is able to notify RN to mitigate further skin breakdown DVT prophylaxis Subcu heparin Get PT/oT eval now patient is more interactive CODE STATUS DNR Admission and Anticipated Discharge Date Admission Date: July 24, 2020 Subjective Patient seen and examined. Patient is more awake and interactive today Oriented to person only and follows commands Denied any chest pain, SOB Denied cough Denied abd pain, nausea or vomiting No events overnight Patient has poor insight into current clinical status Physical Exam Constitutional: + well hydrated; no acute distress Eyes: PERRL, conjunctivae normal, anicteric sclerae ENMT: external ear and nose normal, oropharynx normal Respiratory: no respiratory distress Auscultation: + diminished lung sounds Cardiovascular: Rate/Rhythm: + irregularly irregular S1 S2 Gastrointestinal (Abdomen): normal bowel sounds, soft, nontender, no hepatosplenomegaly PEG in situ Musculoskeletal: Upper extremity edema much improved LE no edema but has chronic stasis changes Moisture skin excoriation on back Neurologic: Alert oriented to person only, follows commands, moves extremities (UE>LE) no focal deficits Results & Data Results & Data ([facility]) Vital Signs (Past 12 Hours) Vital Signs Temp Pulse Pulse Pulse Resp BP BP 07/28/20 07:42 36.7 C 80 18 127/72 07/28/20 04:00 36.8 C 78 20 130/71 07/27/20 22:49 35.8 C L 72 22 128/80 07/27/20 22:20 85 Pulse Ox 07/28/20 07:42 96 07/28/20 04:00 96 07/27/20 22:49 93 07/27/20 22:20 Laboratory Results Laboratory Results - last 24 hr 07/27/20 07/27/20 07/28/20 12:09 17:58 00:16 WBC RBC Hgb Hct MCV MCH MCHC RDW Std Deviation RDW Coeff of Adolph Plt Count MPV Absolute Nucleated RBC Nucleated RBC % (auto) Platelet Estimate Sodium Potassium Chloride Carbon Dioxide Anion Gap BUN Creatinine Est Cr Clr Drug Dosing Est GFR ( Amer) Est GFR (Non-Af Amer) BUN/Creatinine Ratio Glucose POC Glucose 170 H 118 H 151 H Calcium 07/28/20 07/28/20 07/28/20 06:14 07:57 07:57 WBC Cancelled RBC Cancelled Hgb Cancelled Hct Cancelled MCV Cancelled MCH Cancelled MCHC Cancelled RDW Std Deviation Cancelled RDW Coeff of Adolph Cancelled Plt Count Cancelled MPV Cancelled Absolute Nucleated RBC Cancelled Nucleated RBC % (auto) Cancelled Platelet Estimate Cancelled Sodium 134 L Potassium 5.3 H D Chloride 105 Carbon Dioxide 21 Anion Gap 7.0 BUN 76 H Creatinine 1.68 H D Est Cr Clr Drug Dosing 24.1 Est GFR ( Amer) 30.9 Est GFR (Non-Af Amer) 26.7 BUN/Creatinine Ratio 45.3 H Glucose 146 H POC Glucose 174 H Calcium 8.0 L 11/03/20 08:42 WBC 9.84 RBC 3.34 L Hgb 10.5 L Hct 32.3 L MCV 96.7 MCH 31.4 MCHC 32.5 RDW Std Deviation 63.0 H RDW Coeff of Adolph 18.0 H Plt Count 176 MPV 10.9 H Absolute Nucleated RBC Nucleated RBC % (auto) Platelet Estimate Sodium Potassium Chloride Carbon Dioxide Anion Gap BUN Creatinine Est Cr Clr Drug Dosing Est GFR ( Amer) Est GFR (Non-Af Amer) BUN/Creatinine Ratio Glucose POC Glucose Calcium
--- NOTE | 2020-07-28 10:48 | Progress Notes ---
DATE: 07/28/2020 NEPHROLOGY PROGRESS NOTE SUBJECTIVE: No new issues overnight. She is making urine. She is hemodynamically stable. OBJECTIVE: VITAL SIGNS: Blood pressure is 127/72, pulse rate 80, temperature 36.7, 96% on room air. HEENT: Mucous membranes moist. NECK: Supple. No jugular venous distention. CHEST: Bilateral clear to auscultation. Occasional decreased breath sounds, but very poor inspiratory effort limiting the quality of the exam. CARDIOVASCULAR: S1, S2 regular. ABDOMEN: Soft, nontender, obese. EXTREMITIES: Show trace to 1+ edema. LABORATORY TEST: From this morning shows sodium of 134 and slightly high potassium of 5.4. Creatinine has improved. ASSESSMENT AND PLAN: An 89-year-old female with acute kidney injury secondary to acute tubular necrosis in the setting of bacteremia and sepsis. Acute renal failure: Creatinine is getting better with increasing urine output and decreasing creatinine. Her sodium is low and potassium is high. We will restart a loop diuretic, Bumex, which she was getting as an outpatient. Hopefully, this would bring the potassium down and get the sodium up. I would continue to hold the losartan for the time being at least until the potassium is normalized.
[2020-07-28] MEDS: DOXYCYCLINE HYCLATE 100 MG in DEXTROSE 5% 100 ML IV SCH ×2 (11:16→21:10)
[2020-07-28] MEDS: BUMETANIDE 1 MG TAB PO SCH (11:16)
--- NOTE | 2020-07-28 13:02 | Pharmacy Report ---
Pharmacy Glycemic Short Note 2 - Date of Service July 28, 2020 - Glycemic Short BSG Results (Last 24 hours): 07/27/20 07/28/20 07/28/20 17:58 00:16 06:14 Glucose POC Glucose 118 H 151 H 174 H 07/28/20 07/28/20 07:57 12:48 Glucose 146 H POC Glucose 188 H OUTPATIENT ANTIDIABETIC REGIMEN: * Basaglar 15 units SQ QAM * Novolog sliding scale ASSESSMENT: 07/28/20 * Stressors stable * BSG's trending up gradually, now slightly above 180 mg/dL. Will tighten CHO ratio to provide more coverage for tubefeeds with each q6h check 07/27/20 * No changes to stressors noted * BSG's trended down nicely after started covering CHO in tubefeeds yesterday. CHO in TF not covered overnight x2-3 checks therefore BSG elevated this AM. Anticipate improvement with again covering CHO in TF * OK to change from q4h to q6h checks, but will then also switch from Novolog to regular insulin to provide coverage for the full 6 hour interval 07/26/20 * Patient is continual tube feeds- Fibersource running at 60 ml/hr. * Patient received total 36 units of insulin yesterday: 15 units basal + 21 units bolus. * Fasting BSG this AM 147 and pre-breakfast BSG= 181. Continue same basal but slightly tightened Novolog CF this AM. * Pre-lunch BSG at goal = 144. PLAN FOR INPATIENT GLYCEMIC CONTROL: * Hold outpatient oral diabetes medications * Basal insulin * Lantus 15 units SQ QAM * Bolus insulin: lengthen interval and change to regular insulin * Regular insulin per scale Q6h while on tube feeds. * Goal Range: Low 120 mg/dL - High 150 mg/dL * Correction Factor: 20 mg/dL/unit * Nutritional / Prandial insulin per carb ratio of 1 unit per 11 grams CHO consumed (including CHO in tubefeeds) PLAN FOR DISCHARGE: * TBD
[2020-07-28] MEDS: ACETAMINOPHEN 500 MG TAB PO SCH (21:01)
[2020-07-28] MEDS: MIRTAZAPINE TAB 15 MG TAB PO SCH (21:01)
[2020-07-28] MEDS: CEFEPIME 1,000 MG in SYRINGE 0 ML IV SCH (21:09)
[2020-07-29] MEDS: INSULIN HUMAN REGULAR SC SCH ×4 (00:16→19:40)
[2020-07-29] MEDS: TUBE FEEDING WATER FLUSH GT SCH ×6 (00:30→21:02)
[2020-07-29] MEDS: metroNIDAZOLE 500 MG/100 ML BAG IV SCH ×3 (04:29→21:02)
[2020-07-29] MEDS: INSULIN GLARGINE SOLOSTAR 100 UNITS/ML 3 ML PEN SQ SCH (06:13)
[2020-07-29 06:55] LABS: Hematocrit (blood only) 30.2 % (37-47); Hemoglobin 9.7 g/dL (12.0-16.0); Mean Corpuscular Hemoglobin 30.8 pg (25-34); Mean Corpuscular Hgb Conc 32.1 g/dL (32-36); Mean Corpuscular Volume 95.9 fL (80-100); Mean Platelet Volume 10.1 fL (7.4-10.4); Platelet Count 174 K/uL (130-400); RDW Standard Deviation 61.9 fL (36.4-46.3); Red Blood Count 3.15 M/uL (4.2-5.4)
[2020-07-29 07:21] LABS: BUN Creatinine Ratio 55.3 (10-20); Calcium 7.9 mg/dl (8.5-10.1); Creatinine Clr Calc Pharmacy 30.4 ml/min; Est GFR (African American) 41.7; Potassium 4.9 mmol/L (3.5-5.1)
[2020-07-29] MEDS: SODIUM CHLORIDE 0.65% NA SOLN 45 ML (OCEAN) SCH (07:45)
[2020-07-29] MEDS: FLUTICASONE PROPIONATE NA SPR 16 GM BTL SCH (07:45)
[2020-07-29] MEDS: FLUTICASONE/VILANTEROL 200/25MCG 14 PUFFS/INHALER INH SCH (07:45)
[2020-07-29] MEDS: CHLORHEXIDINE GLUCONATE 0.12% 480 ML MT SCH ×2 (07:45→21:06)
[2020-07-29] MEDS: BUMETANIDE 1 MG TAB PO SCH (07:46)
[2020-07-29] MEDS: LANSOPRAZOLE 30 MG SOLTAB PEG SCH (07:47)
[2020-07-29] MEDS: ASPIRIN 81 MG CHEW PEG SCH (07:47)
[2020-07-29] MEDS: DOCUSATE SODIUM/SENNA 50/8.6MG TAB PO SCH ×2 (07:48→21:07)
[2020-07-29] MEDS: HEPARIN SOD 5,000 UNIT/0.5 ML VIAL SQ SCH ×2 (07:48→21:03)
[2020-07-29] MEDS: LORATADINE 10 MG TAB PO SCH (07:48)
[2020-07-29] MEDS: MONTELUKAST SODIUM 10 MG TABLET PO SCH (07:48)
[2020-07-29] MEDS: allopurinoL 100 MG TAB PO SCH (07:48)
[2020-07-29] MEDS: EUCERIN CR 120 GM JAR EXT SCH ×2 (07:49→21:05)
[2020-07-29] MEDS: NYSTATIN CR 15 GM TUBE EXT SCH ×2 (07:49→21:05)
--- NOTE | 2020-07-29 08:50 | Hospitalist Progress Note ---
Date of Service July 29, 2020 Assessment & Plan (1) Pneumonia: Met sepsis criteria on admission with tachycardia, high white count and confusion Bibasilar infiltrates on CXR Possible aspiration One of blood culture grew GPC in clusters Got one dose of vancomycin. MRSA PCR on the positive blood cultures came back negative +Blood culture finalized as CONS. Likely contaminant Repeat blood culture negative Continue cefepime, doxycycline and flagyl Day 5 Leukocytosis resolved (2) Unresponsive episode: Reported to have unresponsive episode at the [facility] and also in the hospital Likely due to current illness - sepsis from pneumonia, ?? bacteremia Mental status continue to improve Per discussion with patient's son, baseline mental status is usually at least alert and oriented to person and place and able to hold conversation but has b een weaker since recent hospitalization (3) Oropharyngeal dysphagia: Status post PEG tube placement during last admission Continue with PEG tube feeding and medications Strict NPO (4) JOANN (acute kidney injury): JONAN on CKD3 Cr 2.62 on admission >>2.76 Likely ATN in the setting of possible sepsis Currently improving, Cr is 1.3 today Restart Bumex Continue to hold losartan [employer] on board Continue increased Tube flushes at 250cc q4h for now Hold off IVF for now Monitor and avoid nephrotoxins (5) (HFpEF) heart failure with preserved ejection fraction: Held bumex initially in the setting of JOANN Restarted Bumex hold other antihypertensives. BP currently stable (6) Type 2 diabetes mellitus: Continue lantus and sliding scale q6h while on tube feeding Pharm on board (7) PVD (peripheral vascular disease): Has chronic skin changes bilaterally Wound consult for sacral skin breakdown Regular turning and skin care (8) Asthma, moderate: No acute exacerbation Urinary retention Discussed with RN. Plan to assess and possible dc godfrey once patient is able to notify RN to mitigate further skin breakdown DVT prophylaxis: Subcu heparin PT/OT CODE STATUS: DNR Admission and Anticipated Discharge Date Admission Date: July 24, 2020 Subjective Pt is laying in bed in NAD. Appears quite fatigued. Denies any complaints. Reports cough. Review of Systems Review of Systems: All systems reviewed & are unremarkable except as noted in HPI & below Constitutional: + fatigue; no fever and no chills Respiratory: + cough; no dyspnea Cardiovascular: no chest pain and no palpitations Gastrointestinal: no abdominal pain, no nausea and no vomiting Physical Exam Physical Exam: Constitutional: + well hydrated; no acute distress Eyes: PERRL, conjunctivae normal, anicteric sclerae ENMT: external ear and nose normal, oropharynx normal Respiratory: no respiratory distress Auscultation: + diminished lung sounds Cardiovascular: Rate/Rhythm: + irregularly irregular S1 S2 Gastrointestinal (Abdomen): normal bowel sounds, soft, nontender, no hepatosplenomegaly PEG in situ Musculoskeletal: Upper extremity edema much improved LE no edema but has chronic stasis changes Moisture skin excoriation on back Neurologic: Alert oriented to person only, follows commands, moves extremities (UE>LE) no focal deficits Results & Data Results & Data ([facility]) Vital Signs (Past 12 Hours) Vital Signs Temp Pulse Pulse Resp BP Pulse Ox 07/29/20 07:34 36.8 C 86 18 136/66 100 07/29/20 07:03 70 07/29/20 03:09 36.5 C 82 21 120/69 100 07/28/20 23:57 36.5 C 93 H 20 116/67 97 07/28/20 23:30 87 Laboratory Results 07/29/20 07/29/20 07/29/20 Range/Units 06:26 06:26 05:58 WBC 9.60 (4.8-10.8) K/uL RBC 3.15 L (4.2-5.4) M/uL Hgb 9.7 L (12.0-16.0) g/dL Hct 30.2 L (37-47) % MCV 95.9 (80-100) fL MCH 30.8 (25-34) pg MCHC 32.1 (32-36) g/dL RDW Std Deviation 61.9 H (36.4-46.3) fL RDW Coeff of Adolph 18.0 H (11.5-14.5) % Plt Count 174 (130-400) K/uL MPV 10.1 (7.4-10.4) fL Sodium 133 L (136-145) mmol/L Potassium 4.9 (3.5-5.1) mmol/L Chloride 105 (98-107) mmol/L Carbon Dioxide 25 (21-32) mmol/L Anion Gap 3.0 (3-11) BUN 72 H (7-18) mg/dl Creatinine 1.31 H D (0.6-1.2) mg/dl Est Cr Clr Drug Dosing 30.4 ml/min Est GFR ( Amer) 41.7 Est GFR (Non-Af Amer) 36.0 BUN/Creatinine Ratio 55.3 H (10-20) Glucose 146 H (70-99) mg/dl POC Glucose 134 H (70-99) mg/dl Calcium 7.9 L (8.5-10.1) mg/dl Stl C. diff Tox B Gene (Neg) 07/29/20 07/28/20 07/28/20 Range/Units 03:38 23:56 18:00 WBC (4.8-10.8) K/uL RBC (4.2-5.4) M/uL Hgb (12.0-16.0) g/dL Hct (37-47) % MCV (80-100) fL MCH (25-34) pg MCHC (32-36) g/dL RDW Std Deviation (36.4-46.3) fL RDW Coeff of Adolph (11.5-14.5) % Plt Count (130-400) K/uL MPV (7.4-10.4) fL Sodium (136-145) mmol/L Potassium (3.5-5.1) mmol/L Chloride (98-107) mmol/L Carbon Dioxide (21-32) mmol/L Anion Gap (3-11) BUN (7-18) mg/dl Creatinine (0.6-1.2) mg/dl Est Cr Clr Drug Dosing ml/min Est GFR ( Amer) Est GFR (Non-Af Amer) BUN/Creatinine Ratio (10-20) Glucose (70-99) mg/dl POC Glucose 149 H 160 H (70-99) mg/dl Calcium (8.5-10.1) mg/dl Stl C. diff Tox B Gene Negative Cdiff Gene (Neg) 07/28/20 07/28/20 07/28/20 Range/Units 12:48 08:42 07:57 WBC 9.84 (4.8-10.8) K/uL RBC 3.34 L (4.2-5.4) M/uL Hgb 10.5 L (12.0-16.0) g/dL Hct 32.3 L (37-47) % MCV 96.7 (80-100) fL MCH 31.4 (25-34) pg MCHC 32.5 (32-36) g/dL RDW Std Deviation 63.0 H (36.4-46.3) fL RDW Coeff of Adolph 18.0 H (11.5-14.5) % Plt Count 176 (130-400) K/uL MPV 10.9 H (7.4-10.4) fL Sodium 134 L (136-145) mmol/L Potassium 5.3 H D (3.5-5.1) mmol/L Chloride 105 (98-107) mmol/L Carbon Dioxide 21 (21-32) mmol/L Anion Gap 7.0 (3-11) BUN 76 H (7-18) mg/dl Creatinine 1.68 H D (0.6-1.2) mg/dl Est Cr Clr Drug Dosing 24.1 ml/min Est GFR ( Amer) 30.9 Est GFR (Non-Af Amer) 26.7 BUN/Creatinine Ratio 45.3 H (10-20) Glucose 146 H (70-99) mg/dl POC Glucose 188 H (70-99) mg/dl Calcium 8.0 L (8.5-10.1) mg/dl Stl C. diff Tox B Gene (Neg) Medications Administered Current Inpatient Medications Acetaminophen (Acetaminophen 325 Mg Tab) 650 mg PO Q4H PRN PRN Reason: Fever Or Pain Stop: 08/23/20 22:55 Acetaminophen (Acetaminophen 500 Mg Tab) 500 mg PO HS BR[facility]ON Stop: 08/24/20 20:59 Last Admin: 07/28/20 21:01 Dose: 500 mg Documented by: Albuterol (Albut/Ipratrop 3mg/0.5mg Neb 3 Ml Vial) 3 ml INH Q4H PRN PRN Reason: Wheezing Stop: 08/23/20 22:55 Allopurinol (Allopurinol 100 Mg Tab) 200 mg PO DAILY BR[facility]ON Stop: 08/24/20 08:59 Last Admin: 07/29/20 07:48 Dose: 200 mg Documented by: Amlodipine Besylate (Amlodipine Besylate 5 Mg Tab) 5 mg PO DAILY [facility] Stop: 08/24/20 08:59 Last Admin: 07/25/20 07:51 Dose: 5 mg Documented by: Aspirin (Aspirin 81 Mg Chew) 81 mg PEG DAILY [facility] Stop: 08/26/20 09:59 Last Admin: 07/29/20 07:47 Dose: 81 mg Documented by: Bumetanide (Bumetanide 1 Mg Tab) 1 mg PO DAILY [facility] Stop: 08/24/20 08:59 Last Admin: 07/25/20 07:51 Dose: 1 mg Documented by: Bumetanide (Bumetanide 1 Mg Tab) 1 mg PO QAM [facility] Stop: 08/27/20 10:29 Last Admin: 07/29/20 07:46 Dose: 1 mg Documented by: Chlorhexidine Gluconate (Chlorhexidine Gluconate 0.12% 480 Ml) 15 ml MT BID [facility] Stop: 08/24/20 08:59 Last Admin: 07/29/20 07:45 Dose: 15 ml Documented by: Dextrose (Dextrose 50% 50 Ml Syringe) 25 - 50 ml IV UD PRN; Protocol PRN Reason: Hypoglycemia Protocol Stop: 08/24/20 08:53 Enteral Nutritional Formula (Fibersource Hn 1.2 Bhvain 1000 Ml Bag) 1,000 ml GT UD BRANDON; Protocol Stop: 08/26/20 13:14 Last Admin: 07/28/20 08:37 Dose: 1,000 ml Documented by: Fluticasone Propionate (Fluticasone Propionate Na Spr 16 Gm Btl) 2 sprays NA DAILY [facility] Stop: 08/24/20 08:59 Last Admin: 07/29/20 07:45 Dose: 2 sprays Documented by: Fluticasone/Vilanterol (Fluticasone/Vilanterol 200/25mcg 14 Puffs/Inhaler) 1 puffs INH DAILY [facility] Stop: 08/24/20 08:59 Last Admin: 07/29/20 07:45 Dose: 1 puffs Documented by: Glucagon (Glucagon For Inj 1 Mg Vial) 1 mg SQ UD PRN; Protocol PRN Reason: Hypoglycemia Protocol Stop: 08/24/20 08:53 Glucose (Glucose 10 Tabs/Tube) 4 - 8 tabs PO UD PRN; Protocol PRN Reason: Hypoglycemia Protocol Stop: 08/24/20 08:53 Glucose (Glucose 40% Gel 15 Gm Tube) 15 - 30 gm PO UD PRN; Protocol PRN Reason: Hypoglycemia Protocol Stop: 08/24/20 08:53 Heparin Sodium (Porcine) (Heparin Sod 5,000 Unit/0.5 Ml Vial) 5,000 units SQ Q12 [facility] Stop: 08/24/20 20:59 Last Admin: 07/29/20 07:48 Dose: Not Given Documented by: Doxycycline Hyclate 100 mg/ (Dextrose) 110 mls @ 50 mls/hr IV Q12H [facility] Stop: 07/31/20 21:59 Last Infusion: 07/28/20 23:22 Dose: Infused Documented by: Cefepime HCl 1,000 mg/ Syringe 11.3 mls @ 5.5 mls/min IV Q24H [facility] Stop: 07/30/20 22:03 Last Admin: 07/28/20 21:09 Dose: 5.5 mls/min Documented by: Metronidazole (Flagyl) 500 mg in 100 mls @ 100 mls/hr IV Q8H [facility] Stop: 08/01/20 12:59 Last Infusion: 07/29/20 05:29 Dose: Infused Documented by: Insulin Glargine (Insulin Glargine Solostar 100 Units/Ml 3 Ml Pen) 15 units SQ DAILY@0600 [facility] Stop: 08/27/20 07:14 Last Admin: 07/29/20 06:13 Dose: 15 units Documented by: Insulin Human Regular (Insulin Human Regular) 0 units SC Q6 [facility]; Protocol Stop: 08/26/20 11:59 Last Admin: 07/29/20 06:14 Dose: 6 units Documented by: Lansoprazole (Lansoprazole 30 Mg Soltab) 30 mg PEG DAILY [facility]; Protocol Stop: 08/27/20 08:59 Last Admin: 07/29/20 07:47 Dose: 30 mg Documented by: Loratadine (Loratadine 10 Mg Tab) 10 mg PO DAILY [facility] Stop: 08/24/20 08:59 Last Admin: 07/29/20 07:48 Dose: 10 mg Documented by: Losartan Potassium (Losartan Potassium 25 Mg Tab) 12.5 mg PO DAILY [facility] Stop: 08/24/20 08:59 Last Admin: 07/25/20 07:48 Dose: 12.5 mg Documented by: Metoclopramide HCl (Metoclopramide Hcl 5 Mg Tablet) 5 mg PO BIDM PRN PRN Reason: nausea and vomiting Stop: 08/23/20 22:55 Metoprolol Tartrate (Metoprolol Tartrate 25 Mg Tab) 12.5 mg PO QAM [facility] Stop: 08/24/20 08:59 Last Admin: 07/25/20 07:49 Dose: 12.5 mg Documented by: Miconazole Nitrate (Miconazole Nitrate Powder 43 Gm) 1 appln EXT PRN PRN PRN Reason: rash Stop: 08/23/20 22:55 Last Admin: 07/27/20 07:56 Dose: 1 appln Documented by: Mirtazapine (Mirtazapine Tab 15 Mg Tab) 30 mg PO HS [facility]ON Stop: 08/24/20 20:59 Last Admin: 07/28/20 21:01 Dose: 30 mg Documented by: Miscellaneous (Azelastine Ns~Order Awaiting Action) 1 ea N/A QS [facility] Stop: 08/24/20 07:59 Last Admin: 07/29/20 07:47 Dose: Not Given Documented by: Miscellaneous (Carbohydrates For Hypoglycemia ) 15 - 30 gm PO UD PRN PRN Reason: Hypoglycemia Protocol Stop: 08/24/20 08:53 Miscellaneous Information (Cefepime Consult Active) 1 ea N/A UD PRN PRN Reason: Consult Stop: 08/24/20 00:15 Miscellaneous Information (Pharmacy Glycemic Mgmt Consult) 1 ea N/A UD PRN; Protocol PRN Reason: Consult Stop: 08/24/20 09:06 Montelukast Sodium (Montelukast Sodium 10 Mg Tablet) 10 mg PO DAILY [facility] Stop: 08/24/20 08:59 Last Admin: 07/29/20 07:48 Dose: 10 mg Documented by: Multi-Ingredient Cream (Eucerin Cr 120 Gm Jar) 1 appln EXT BID [facility] Stop: 08/24/20 08:59 Last Admin: 07/29/20 07:49 Dose: 1 appln Documented by: Nystatin (Nystatin Cr 15 Gm Tube) 1 appln EXT BID [facility] Stop: 08/24/20 08:59 Last Admin: 07/29/20 07:49 Dose: Not Given Documented by: Senna/Docusate Sodium (Docusate Sodium/Senna 50/8.6mg Tab) 2 tab PO BID [facility] Stop: 08/24/20 08:59 Last Admin: 07/29/20 07:48 Dose: Not Given Documented by: Sodium Chloride (Sodium Chloride 0.65% Na Soln 45 Ml ([place])) 2 sprays NA DAILY [facility] Stop: 08/24/20 08:59 Last Admin: 07/29/20 07:45 Dose: 2 sprays Documented by: Sterile Water (Tube Feeding Water Flush) 250 ml GT Q4H [facility] Stop: 08/24/20 12:29 Last Admin: 07/29/20 07:47 Dose: 250 ml Documented by:
[2020-07-29] MEDS: DOXYCYCLINE HYCLATE 100 MG in DEXTROSE 5% 100 ML IV SCH ×2 (10:02→21:07)
[2020-07-29] MEDS: CEFEPIME 2,000 MG in SYRINGE 0 ML IV SCH (17:26)
[2020-07-29] MEDS: MIRTAZAPINE TAB 15 MG TAB PO SCH (21:06)
[2020-07-29] MEDS: ACETAMINOPHEN 500 MG TAB PO SCH (21:07)
[2020-07-30] MEDS: BUMETANIDE 1 MG TAB PO SCH (00:07)
[2020-07-30] MEDS: INSULIN HUMAN REGULAR SC SCH ×4 (00:17→17:49)
[2020-07-30] MEDS: metroNIDAZOLE 500 MG/100 ML BAG IV SCH ×3 (04:45→20:24)
[2020-07-30] MEDS: TUBE FEEDING WATER FLUSH GT SCH ×6 (04:46→22:39)
[2020-07-30] MEDS: INSULIN GLARGINE SOLOSTAR 100 UNITS/ML 3 ML PEN SQ SCH (05:53)
[2020-07-30] MEDS: LANSOPRAZOLE 30 MG SOLTAB PEG SCH (08:45)
[2020-07-30] MEDS: DOCUSATE SODIUM/SENNA 50/8.6MG TAB PO SCH ×2 (08:45→20:24)
[2020-07-30] MEDS: ASPIRIN 81 MG CHEW PEG SCH (08:45)
[2020-07-30] MEDS: LORATADINE 10 MG TAB PO SCH (08:45)
[2020-07-30] MEDS: allopurinoL 100 MG TAB PO SCH (08:45)
[2020-07-30] MEDS: CHLORHEXIDINE GLUCONATE 0.12% 480 ML MT SCH ×2 (08:46→20:25)
[2020-07-30] MEDS: MONTELUKAST SODIUM 10 MG TABLET PO SCH (08:46)
[2020-07-30] MEDS: SODIUM CHLORIDE 0.65% NA SOLN 45 ML (OCEAN) SCH (08:47)
[2020-07-30] MEDS: FLUTICASONE/VILANTEROL 200/25MCG 14 PUFFS/INHALER INH SCH (08:47)
[2020-07-30] MEDS: EUCERIN CR 120 GM JAR EXT SCH ×2 (08:47→21:00)
[2020-07-30] MEDS: FLUTICASONE PROPIONATE NA SPR 16 GM BTL SCH (08:47)
[2020-07-30] MEDS: HEPARIN SOD 5,000 UNIT/0.5 ML VIAL SQ SCH ×2 (08:48→20:24)
[2020-07-30 08:49] LABS: BUN Creatinine Ratio 52.1 (10-20); Calcium 8.4 mg/dl (8.5-10.1); Creatinine Clr Calc Pharmacy 31.3 ml/min; Est GFR (African American) 42.9; Magnesium 1.5 mg/dl (1.8-2.4); Phosphorus 1.8 mg/dl (2.5-4.9); Potassium 5.1 mmol/L (3.5-5.1)
[2020-07-30] MEDS: NYSTATIN CR 15 GM TUBE EXT SCH ×2 (08:49→20:26)
[2020-07-30] MEDS: DOXYCYCLINE HYCLATE 100 MG in DEXTROSE 5% 100 ML IV SCH ×2 (08:49→22:03)
[2020-07-30] MEDS ORDERED: SODIUM PHOSPHATE 3 MMOL/1 ML INFUSION IV STA (09:02)
[2020-07-30] MEDS ORDERED: MAGNESIUM SULFATE / D5W 1 GM/100 ML BAG IV ONE (09:03)
--- NOTE | 2020-07-30 09:04 | Hospitalist Progress Note ---
Date of Service July 30, 2020 Assessment & Plan (1) Pneumonia: Met sepsis criteria on admission with tachycardia, high white count and confusion Bibasilar infiltrates on CXR Possible aspiration One of blood culture grew GPC in clusters Got one dose of vancomycin. MRSA PCR on the positive blood cultures came back negative +Blood culture finalized as CONS. Likely contaminant Repeat blood culture negative Continue cefepime, doxycycline and flagyl Day 5 Leukocytosis resolved (2) Unresponsive episode: Reported to have unresponsive episode at the senior care and also in the hospital Likely due to current illness - sepsis from pneumonia, ?? 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 BP currently stable (6) Type 2 diabetes mellitus: Continue lantus and sliding scale q6h while on tube feeding Pharm on board (7) PVD (peripheral vascular disease): Has chronic skin changes bilaterally Wound consult for sacral skin breakdown Regular turning and skin care (8) Asthma, moderate: No acute exacerbation Urinary retention Discussed with RN. Plan to assess and possible dc godfrey once patient is able to notify RN to mitigate further skin breakdown DVT prophylaxis: Subcu heparin PT/OT CODE STATUS: DNR Pt is not moving by herself. Needs assistance with performing physical exam, and obtaining vital signs. Recently, during last admission, PEG tube placed d/t dysphagia. Now readmitted d/t unresponsive episode likely secondary to pneumonia. Overall prognosis is poor. Discussed with pt's son Luis, over the phone. Palliative medicine consulted. Admission and Anticipated Discharge Date Admission Date: July 24, 2020 Subjective Pt is laying in bed. Very weak but today appears more alert. No fever, chills, chest pain or abdominal pain. Breathing comfortably, reports occasional cough. Pt is hardly moving, need for assistance with physical exam, also needs help during obtaining vital signs. Review of Systems Review of Systems: All systems reviewed & are unremarkable except as noted in HPI & below Constitutional: + fatigue; no fever and no chills Respiratory: + cough; no dyspnea Cardiovascular: no chest pain and no palpitations Gastrointestinal: no abdominal pain, no nausea and no vomiting Physical Exam Physical Exam: Constitutional: elderly female laying in bed, + chronically ill appearing, pale, in no acute distress Eyes: PERRL, EOMI, conjunctivae normal, anicteric sclerae ENMT: external ear and nose normal, oropharynx normal Respiratory: no respiratory distress Auscultation: + diminished lung sounds Cardiovascular: Rate/Rhythm: + irregularly irregular S1 S2 Gastrointestinal (Abdomen): normal bowel sounds, soft, nontender, PEG tube visualized Musculoskeletal: Upper extremity edema much improved LE no edema but has chronic stasis changes Moisture skin excoriation on back Neurologic: Alert oriented to person only, follows commands, moves extremities (UE>LE) no focal deficits Results & Data Results & Data ([facility]) Vital Signs (Past 12 Hours) Vital Signs Temp Pulse Pulse Pulse Resp BP Pulse Ox 07/30/20 07:09 98 H 07/30/20 07:00 36.4 C L 88 20 117/59 L 97 07/30/20 03:14 36.9 C 88 20 177/66 H 97 07/29/20 23:35 89 07/29/20 23:07 36.8 C 91 H 18 180/75 H 99 07/29/20 22:00 84 Laboratory Results 07/30/20 07/30/20 07/30/20 Range/Units 08:07 05:48 00:14 Sodium 133 L (136-145) mmol/L Potassium 5.1 (3.5-5.1) mmol/L Chloride 104 (98-107) mmol/L Carbon Dioxide 24 (21-32) mmol/L Anion Gap 5.0 (3-11) BUN 67 H (7-18) mg/dl Creatinine 1.28 H (0.6-1.2) mg/dl Est Cr Clr Drug Dosing 31.3 ml/min Est GFR ( Amer) 42.9 Est GFR (Non-Af Amer) 37.0 BUN/Creatinine Ratio 52.1 H (10-20) Glucose 131 H (70-99) mg/dl POC Glucose 131 H 181 H (70-99) mg/dl Calcium 8.4 L (8.5-10.1) mg/dl Phosphorus 1.8 L (2.5-4.9) mg/dl Magnesium 1.5 L (1.8-2.4) mg/dl 07/29/20 07/29/20 Range/Units 19:35 11:13 Sodium (136-145) mmol/L Potassium (3.5-5.1) mmol/L Chloride (98-107) mmol/L Carbon Dioxide (21-32) mmol/L Anion Gap (3-11) BUN (7-18) mg/dl Creatinine (0.6-1.2) mg/dl Est Cr Clr Drug Dosing ml/min Est GFR ( Amer) Est GFR (Non-Af Amer) BUN/Creatinine Ratio (10-20) Glucose (70-99) mg/dl POC Glucose 160 H 157 H (70-99) mg/dl Calcium (8.5-10.1) mg/dl Phosphorus (2.5-4.9) mg/dl Magnesium (1.8-2.4) mg/dl Medications Administered Current Inpatient Medications Acetaminophen (Acetaminophen 325 Mg Tab) 650 mg PO Q4H PRN PRN Reason: Fever Or Pain Stop: 08/23/20 22:55 Acetaminophen (Acetaminophen 500 Mg Tab) 500 mg PO HS BRANDON Stop: 08/24/20 20:59 Last Admin: 07/29/20 21:07 Dose: 500 mg Documented by: Albuterol (Albut/Ipratrop 3mg/0.5mg Neb 3 Ml Vial) 3 ml INH Q4H PRN PRN Reason: Wheezing Stop: 08/23/20 22:55 Allopurinol (Allopurinol 100 Mg Tab) 200 mg PO DAILY BRANDON Stop: 08/24/20 08:59 Last Admin: 07/30/20 08:45 Dose: 200 mg Documented by: Amlodipine Besylate (Amlodipine Besylate 5 Mg Tab) 5 mg PO DAILY BRANDON Stop: 08/24/20 08:59 Last Admin: 07/25/20 07:51 Dose: 5 mg Documented by: Aspirin (Aspirin 81 Mg Chew) 81 mg PEG DAILY BRANDON Stop: 08/26/20 09:59 Last Admin: 07/30/20 08:45 Dose: 81 mg Documented by: Bumetanide (Bumetanide 1 Mg Tab) 1 mg PO QAM [facility] Stop: 08/28/20 23:34 Last Admin: 07/30/20 00:07 Dose: 1 mg Documented by: Chlorhexidine Gluconate (Chlorhexidine Gluconate 0.12% 480 Ml) 15 ml MT BID [facility] Stop: 08/24/20 08:59 Last Admin: 07/30/20 08:46 Dose: 15 ml Documented by: Dextrose (Dextrose 50% 50 Ml Syringe) 25 - 50 ml IV UD PRN; Protocol PRN Reason: Hypoglycemia Protocol Stop: 08/24/20 08:53 Enteral Nutritional Formula (Fibersource Hn 1.2 Bhavin 1000 Ml Bag) 1,000 ml GT UD [facility]; Protocol Stop: 08/26/20 13:14 Last Admin: 07/28/20 08:37 Dose: 1,000 ml Documented by: Fluticasone Propionate (Fluticasone Propionate Na Spr 16 Gm Btl) 2 sprays NA DAILY [facility] Stop: 08/24/20 08:59 Last Admin: 07/30/20 08:47 Dose: 2 sprays Documented by: Fluticasone/Vilanterol (Fluticasone/Vilanterol 200/25mcg 14 Puffs/Inhaler) 1 puffs INH DAILY [facility] Stop: 08/24/20 08:59 Last Admin: 07/30/20 08:47 Dose: 1 puffs Documented by: Glucagon (Glucagon For Inj 1 Mg Vial) 1 mg SQ UD PRN; Protocol PRN Reason: Hypoglycemia Protocol Stop: 08/24/20 08:53 Glucose (Glucose 10 Tabs/Tube) 4 - 8 tabs PO UD PRN; Protocol PRN Reason: Hypoglycemia Protocol Stop: 08/24/20 08:53 Glucose (Glucose 40% Gel 15 Gm Tube) 15 - 30 gm PO UD PRN; Protocol PRN Reason: Hypoglycemia Protocol Stop: 08/24/20 08:53 Heparin Sodium (Porcine) (Heparin Sod 5,000 Unit/0.5 Ml Vial) 5,000 units SQ Q12 [facility] Stop: 08/24/20 20:59 Last Admin: 07/30/20 08:48 Dose: 5,000 units Documented by: Doxycycline Hyclate 100 mg/ (Dextrose) 110 mls @ 50 mls/hr IV Q12H [facility] Stop: 07/31/20 21:59 Last Admin: 07/30/20 08:49 Dose: 50 mls/hr Documented by: Metronidazole (Flagyl) 500 mg in 100 mls @ 100 mls/hr IV Q8H [facility] Stop: 08/01/20 12:59 Last Infusion: 07/30/20 05:45 Dose: Infused Documented by: Cefepime HCl 2,000 mg/ Syringe 20 mls @ 5 mls/min IV DAILY@1600 [facility]; Protocol Stop: 08/05/20 15:59 Last Admin: 07/29/20 17:26 Dose: 5 mls/min Documented by: Magnesium Sulfate/Dextrose (Magnesium Sulfate / D5w) 1 gm in 100 mls @ 50 mls/hr IV ONE ONE Stop: 07/30/20 11:02 Insulin Glargine (Insulin Glargine Solostar 100 Units/Ml 3 Ml Pen) 15 units SQ DAILY@0600 [facility] Stop: 08/27/20 07:14 Last Admin: 07/30/20 05:53 Dose: 15 units Documented by: Insulin Human Regular (Insulin Human Regular) 0 units SC Q6 [facility]; Protocol Stop: 08/26/20 11:59 Last Admin: 07/30/20 05:54 Dose: 6 units Documented by: Lansoprazole (Lansoprazole 30 Mg Soltab) 30 mg PEG DAILY [facility]; Protocol Stop: 08/27/20 08:59 Last Admin: 07/30/20 08:45 Dose: 30 mg Documented by: Loratadine (Loratadine 10 Mg Tab) 10 mg PO DAILY [facility] Stop: 08/24/20 08:59 Last Admin: 07/30/20 08:45 Dose: 10 mg Documented by: Losartan Potassium (Losartan Potassium 25 Mg Tab) 12.5 mg PO DAILY [facility] Stop: 08/24/20 08:59 Last Admin: 07/25/20 07:48 Dose: 12.5 mg Documented by: Metoclopramide HCl (Metoclopramide Hcl 5 Mg Tablet) 5 mg PO BIDM PRN PRN Reason: nausea and vomiting Stop: 08/23/20 22:55 Metoprolol Tartrate (Metoprolol Tartrate 25 Mg Tab) 12.5 mg PO QAM [facility] Stop: 08/24/20 08:59 Last Admin: 07/25/20 07:49 Dose: 12.5 mg Documented by: Miconazole Nitrate (Miconazole Nitrate Powder 43 Gm) 1 appln EXT PRN PRN PRN Reason: rash Stop: 08/23/20 22:55 Last Admin: 07/27/20 07:56 Dose: 1 appln Documented by: Mirtazapine (Mirtazapine Tab 15 Mg Tab) 30 mg PO HS BRANDON Stop: 08/24/20 20:59 Last Admin: 07/29/20 21:06 Dose: 30 mg Documented by: Miscellaneous (Azelastine Ns~Order Awaiting Action) 1 ea N/A QS [facility] Stop: 08/24/20 07:59 Last Admin: 07/30/20 08:48 Dose: Not Given Documented by: Miscellaneous (Carbohydrates For Hypoglycemia ) 15 - 30 gm PO UD PRN PRN Reason: Hypoglycemia Protocol Stop: 08/24/20 08:53 Miscellaneous Information (Cefepime Consult Active) 1 ea N/A UD PRN PRN Reason: Consult Stop: 08/24/20 00:15 Miscellaneous Information (Pharmacy Glycemic Mgmt Consult) 1 ea N/A UD PRN; Protocol PRN Reason: Consult Stop: 08/24/20 09:06 Montelukast Sodium (Montelukast Sodium 10 Mg Tablet) 10 mg PO DAILY BRANDON Stop: 08/24/20 08:59 Last Admin: 07/30/20 08:46 Dose: 10 mg Documented by: Multi-Ingredient Cream (Eucerin Cr 120 Gm Jar) 1 appln EXT BID [facility] Stop: 08/24/20 08:59 Last Admin: 07/30/20 08:47 Dose: 1 appln Documented by: Nystatin (Nystatin Cr 15 Gm Tube) 1 appln EXT BID [facility] Stop: 08/24/20 08:59 Last Admin: 07/30/20 08:49 Dose: Not Given Documented by: Senna/Docusate Sodium (Docusate Sodium/Senna 50/8.6mg Tab) 2 tab PO BID BR[facility]ON Stop: 08/24/20 08:59 Last Admin: 07/30/20 08:45 Dose: 2 tab Documented by: Sodium Chloride (Sodium Chloride 0.65% Na Soln 45 Ml ([place])) 2 sprays NA DAILY [facility] Stop: 08/24/20 08:59 Last Admin: 07/30/20 08:47 Dose: 2 sprays Documented by: Sodium Phosphate (Sodium Phosphate 3 Mmol/1 Ml Infusion) 12 mmol IV NOW STA Stop: 07/30/20 09:03 Sterile Water (Tube Feeding Water Flush) 250 ml GT Q4H [facility] Stop: 08/24/20 12:29 Last Admin: 07/30/20 08:48 Dose: 250 ml Documented by:
[2020-07-30] MEDS ORDERED: SODIUM PHOSPHATE 12 MMOL in SODIUM CHLORIDE 0.9% 250 ML IV ONE (09:30)
--- NOTE | 2020-07-30 11:45 | Pharmacy Report ---
Pharmacy Glycemic Short Note 2 - Date of Service July 30, 2020 - Glycemic Short BSG Results (Last 24 hours): 07/29/20 07/30/20 07/30/20 19:35 00:14 05:48 Glucose POC Glucose 160 H 181 H 131 H 07/30/20 07/30/20 08:07 11:32 Glucose 131 H POC Glucose 173 H OUTPATIENT ANTIDIABETIC REGIMEN: * Basaglar 15 units SQ QAM * Novolog sliding scale ASSESSMENT: 07/30: * Pt has been receiving ~ 40 units of insulin per day with adequate control * 15 units of basal insulin with Lantus * 24 units of bolus insulin with Regular insulin to cover CHO in continuous tube feedings (6 units SQ q6hrs) * BSGs ranging 131-173 mg/dl which is adequate based on age/co-morbidities * No changes needed to regimen at this time. Insulin regimen will need significantly decreased if tube feeds are stopped. 07/28/20 * Stressors stable * BSG's trending up gradually, now slightly above 180 mg/dL. Will tighten CHO ratio to provide more coverage for tubefeeds with each q6h check 07/27/20 * No changes to stressors noted * BSG's trended down nicely after started covering CHO in tubefeeds yesterday. CHO in TF not covered overnight x2-3 checks therefore BSG elevated this AM. Anticipate improvement with again covering CHO in TF * OK to change from q4h to q6h checks, but will then also switch from Novolog to regular insulin to provide coverage for the full 6 hour interval 07/26/20 * Patient is continual tube feeds- Fibersource running at 60 ml/hr. * Patient received total 36 units of insulin yesterday: 15 units basal + 21 units bolus. * Fasting BSG this AM 147 and pre-breakfast BSG= 181. Continue same basal but slightly tightened Novolog CF this AM. * Pre-lunch BSG at goal = 144. PLAN FOR INPATIENT GLYCEMIC CONTROL: * Basal insulin * Lantus 15 units SQ QAM * Bolus insulin: lengthen interval and change to regular insulin * Regular insulin per scale Q6h while on tube feeds. * Goal Range: Low 120 mg/dL - High 150 mg/dL * Correction Factor: 20 mg/dL/unit * Nutritional / Prandial insulin per carb ratio of 1 unit per 11 grams CHO consumed (including CHO in tubefeeds)
--- NOTE | 2020-07-30 11:46 | Palliative Care Consultation ---
Date of Consultation July 30, 2020 Assessment & Plan (1) Palliative care encounter: This is an 89 year old female who presented to the [facility] from [facility] with overall confusion and decreased responsiveness. She had a recent admission in May 2020 for PEG tube placement for chronic aspiration and dysphagia. She was under a 14 day quarantine upon her return there, then she became more lethargic and returned to the hospital. Additional PMH includes: CAD, CHF, Atrial fibrillation, CKD IV, anemia of chronic disease, DM2, PVD, and dysphagia. On admission, this patient was found to have bibasilar PNA and is receiving treatment for such. The patient is listed as a DNR/DNI. Palliative Care was consulted to discuss goals of care. I visited the patient in room 280. She was lying in her hospital bed in no apparent distress. Patient was able to answer some questions, but had some intermittent confusion throughout my visit. She has a son Luis and daughter in law Altagracia. I spoke with Luis on the phone at [phone]. Luis mentioned that he feels his mother has declined over the past year. She has lived at [facility] since August 2019. He confirmed that she would want to remain a DNR/DNI. We discussed a POLST form at this time and suggested that it could be helpful to complete prior to her discharge. He plans to come to the hospital tomorrow and on Monday. He agrees that we could monitor how she responds to the IV antibiotics over the weekend and continue having conversations to establish goals prior to her return to [facility]. Thank you kindly for involving the palliative care consultation service with this patient. We will follow as necessary. (2) Lethargy: (3) Pneumonia: Laterality: bilateral Lung location: unspecified part of lung Pneumonia type: due to unspecified organism Qualified Code(s): J18.9 - Pneumonia, unspecified organism (4) Stage II pressure ulcer of buttock: (5) Chronic venous insufficiency: History of Present Illness Reason for Consultation: Goals of Care Requesting Physician: Dr. Ramos Attending Physician: Juan Ramos MD History of Present Illness This is an 89 year old female who presented to the [facility] from [facility] with overall confusion and decreased responsiveness. She had a recent admission in May 2020 for PEG tube placement for chronic aspiration and dysphagia. She was under a 14 day quarantine upon her return there, then she became more lethargic and returned to the hospital. Additional PMH includes: CAD, CHF, Atrial fibrillation, CKD IV, anemia of chronic disease, DM2, PVD, and dysphagia. On admission, this patient was found to have bibasilar PNA and is receiving treatment for such. The patient is listed as a DNR/DNI. Palliative Care was consulted to discuss goals of care. Please see A/P for further details. Thank you kindly for involving the palliative care consultation service with this patient. We will follow as necessary. Allergies Allergy/AdvReac Type Severity Reaction Status Date / Time clofibrate Allergy Severe SWELLING Verified 07/24/20 19:09 rabeprazole Allergy Intermediate SOB/COUGHING Verified 07/24/20 19:09 AND THROAT FELT TIGHT/ABD. CRAMPING fexofenadine Allergy Mild RASH Verified 07/24/20 19:09 Fibrate Anti-Lipidemics Allergy Mild SWELLING Verified 07/24/20 19:09 fluvastatin Allergy Mild HIVES Verified 07/24/20 19:09 metformin Allergy Mild URINARY Verified 07/24/20 19:09 FREQUENCY/RASH/ITCH morphine Allergy Mild ITCHY/HIVES Verified 07/24/20 19:09 moxifloxacin Allergy Mild ITCHY/NAUSE Verified 07/24/20 19:09 A Penicillins Allergy Mild HIVES Verified 07/24/20 19:09 Quinolones Allergy Mild RASH Verified 07/24/20 19:09 amoxicillin Allergy Unknown Unknown Verified 07/24/20 19:09 chlorpropamide Allergy Unknown UNKNOWN Verified 07/24/20 19:09 NSAIDS (Non-Steroidal Allergy Unknown UNKNOWN Verified 07/24/20 19:09 Anti-Inflamma ranitidine Allergy Unknown Unknown Verified 07/24/20 19:09 Sulfa (Sulfonamide Allergy Unknown UNKNOWN Verified 07/24/20 19:09 Antibiotics) blue dye AdvReac Mild MYALGIAS Verified 07/24/20 19:09 AND CRAMPS codeine AdvReac Mild FEELS Verified 07/24/20 19:09 "HIGH" ON/ITCHING dexlansoprazole AdvReac Mild MYALGIAS Verified 07/24/20 19:09 AND CRAMPS gemfibrozil AdvReac Mild ABDOMINAL Verified 07/24/20 19:09 CRAMPS AND DIZZINESS lisinopril AdvReac Mild COUGH Verified 07/24/20 19:09 lorazepam AdvReac Mild 0 Verified 07/24/20 19:09 rofecoxib AdvReac Mild INDIGESTION Verified 07/24/20 19:09 Home Medications Home Medications Medication Instructions Recorded Confirmed Type montelukast 10 mg tablet 10 mg PO DAILY 01/22/19 07/24/20 History allopurinol 200 mg PO DAILY 03/05/19 07/24/20 History fluticasone propionate [Flonase 2 spray INTRANASAL DAILY 03/05/19 07/24/20 History Allergy Relief] loratadine 10 mg PO DAILY 03/05/19 07/24/20 History sennosides-docusate sodium 2 tab PO BID 03/05/19 07/24/20 History [Senna-S] Aroma Therapy See Rx Instructions .ROUTE .COMPLEX 06/23/20 07/24/20 History Breo Ellipta 1 inh INHALATION DAILY 06/23/20 07/24/20 History Eucerin 1 applic TOPICAL BID 06/23/20 07/24/20 History Vitron-C 1 tab PO DAILY 06/23/20 07/24/20 History acetaminophen 500 mg PO HS MDD 3000 MG APAP/24 06/23/20 07/24/20 History HOURS acetaminophen 650 mg PO Q4H PRN MDD 3000 MG 06/23/20 07/24/20 History APAP/24 HOURS amlodipine 5 mg PO DAILY 06/23/20 07/24/20 History aspirin 81 mg PO DAILY 06/23/20 07/24/20 History azelastine 2 spray INTRANASAL AMHS 06/23/20 07/24/20 History bumetanide 1 mg PO DAILY 06/23/20 07/24/20 History ipratropium-albuterol 3 ml INHALATION Q4H PRN 06/23/20 07/24/20 History mirtazapine 30 mg PO HS 06/23/20 07/24/20 History omeprazole 40 mg PO QAM 06/23/20 07/24/20 History ondansetron HCl [Zofran] 4 mg PO Q6H PRN 06/23/20 07/24/20 History sodium chloride [Saline Nasal] 2 spray INTRANASAL DIRECTED 06/23/20 07/24/20 History insulin glargine [Lantus Solostar 15 unit SUBCUT DAILY 30 Days #4.5 07/07/20 07/24/20 Rx U-100 Insulin] ml losartan 12.5 mg PO DAILY #0 tab 07/07/20 07/24/20 Rx metoclopramide HCl 5 mg PO BIDM PRN #10 tab 07/07/20 07/24/20 Rx metoprolol tartrate 12.5 mg PO QAM #0 tab 07/07/20 07/24/20 Rx miconazole nitrate [Desenex] 1 applic EXT PRN PRN 30 Days #43 g 07/07/20 10/ Rx nystatin 1 applic EXT BID #30 g 07/07/20 07/24/20 Rx chlorhexidine gluconate 15 ml PO BID 07/24/20 07/24/20 History glucagon (human recombinant) 0 mg SUBCUT UD 07/24/20 07/24/20 History [Glucagon Emergency Kit (human)] nut.tx.impaired dige fxn-fiber 0 ea FEEDING TUBE UD 07/24/20 07/24/20 History [Vital 1.0 Bhavin] Patient History Medical History Anemia Asthma CAD (coronary atherosclerotic disease) CKD (chronic kidney disease) stage 4, GFR 15-29 ml/min Diabetes GERD (gastroesophageal reflux disease) HTN, goal to be determined Hyperparathyroidism Obesity Oropharyngeal dysphagia Palliative care encounter PVD (peripheral vascular disease) Surgical History H/O right coronary artery stent placement S/P abdominal hysterectomy S/P cholecystectomy Family History Other No pertinent family history in first degree relatives Social History Smoking Status: Unknown if ever smoked Hx Alcohol Use: No Hx Substance Use: No Preferred Language: Persian Communication Ability: Unable Visual Impairment: Limited Hearing Ability: Hard of Hearing [employer]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 Beliefs That Will Affect Care: None marital status: / Current Living Situation: Personal Care Facility Current Living Situation Comment: [facility] current occupational status: retired Feels Safe at Home: Yes Assistive Devices: None Review of Systems Review of Systems: Unobtainable due to cognitive status Physical Exam Constitutional: + frail appearing, + disheveled and cooperative Respiratory: normal respiratory effort; no respiratory distress and no labored breathing Auscultation: + diminished lung sounds and + rhonchi Cardiovascular: Rate/Rhythm: + irregularly irregular Heart Sounds: normal S1 and normal S2 Vessels: normal peripheral pulses Extremities: + edema; + abnormal capillary refill and no pedal edema LE PVD Gastrointestinal (Abdomen): normal bowel sounds, soft, nontender, no hepatosplenomegaly Percussion/Palpation: abdomen soft LUQ PEG Skin: + turgor decreased, + crusts, + dry skin and + pallor Psychiatric: Orientation: alert, oriented to person, oriented to place and cooperative Insight: + limited insight Judgement: + limited judgement Results & Data ([facility]) Vital Signs (Past 12 Hours) Vital Signs Temp Pulse Pulse Pulse Resp BP Pulse Ox 07/30/20 07:09 98 H 07/30/20 07:00 36.4 C L 88 20 117/59 L 97 07/30/20 03:14 36.9 C 88 20 177/66 H 97 PG Care Time/CCT Total # of Minutes Spent Total Time Spent with Patient: Total time spent is greater than 50% in coordination of care (as documented) at patient's floor/unit and/or counseling patient: 70 Coding Level of Care Code 90617 Inpt Consult Level 3 Diagnoses Palliative care encounter Z51.5 Lethargy R53.83 Pneumonia J18.9 Laterality: bilateral Lung location: unspecified part of lung Pneumonia type: due to unspecified organism Stage II pressure ulcer of buttock L89.302 Chronic venous insufficiency I87.2 Time Spent (min) 70 Time Spent Midlevel Total time spent 70 minutes with > 50% of that time spent assessing the patient, discussing goals of care with patient and family, along with collaborating with the IDT
[2020-07-30] MEDS: CEFEPIME 2,000 MG in SYRINGE 0 ML IV SCH (16:32)
[2020-07-30] MEDS: PEPTAMEN 1.5 CAL 1,000 ML BAG PEG SCH (17:52)
[2020-07-30] MEDS: ACETAMINOPHEN 500 MG TAB PO SCH (20:23)
[2020-07-30] MEDS: MIRTAZAPINE TAB 15 MG TAB PO SCH (20:24)
[2020-07-31] MEDS: INSULIN HUMAN REGULAR SC SCH ×4 (00:33→17:59)
[2020-07-31] MEDS: TUBE FEEDING WATER FLUSH GT SCH ×6 (02:30→23:50)
[2020-07-31] MEDS: metroNIDAZOLE 500 MG/100 ML BAG IV SCH ×3 (04:51→20:54)
[2020-07-31 06:11] LABS: Hematocrit (blood only) 29.3 % (37-47); Hemoglobin 9.7 g/dL (12.0-16.0); Mean Corpuscular Hgb Conc 33.1 g/dL (32-36); Mean Corpuscular Volume 96.7 fL (80-100); Mean Platelet Volume 10.5 fL (7.4-10.4); Platelet Count 202 K/uL (130-400); RDW Coefficient of Variation 18.1 % (11.5-14.5); Red Blood Count 3.03 M/uL (4.2-5.4); White Blood Count 9.11 K/uL (4.8-10.8)
[2020-07-31] MEDS: INSULIN GLARGINE SOLOSTAR 100 UNITS/ML 3 ML PEN SQ SCH (06:23)
[2020-07-31 06:37] LABS: BUN Creatinine Ratio 55.2 (10-20); Creatinine Clr Calc Pharmacy 37.1 ml/min; Est GFR (African American) 52.1; Magnesium 1.7 mg/dl (1.8-2.4); Potassium 4.9 mmol/L (3.5-5.1)
[2020-07-31 06:40] LABS: Phosphorus 2.5 mg/dl (2.5-4.9)
--- NOTE | 2020-07-31 08:17 | Hospitalist Progress Note ---
Date of Service July 31, 2020 Assessment & Plan (1) Pneumonia: Met sepsis criteria on admission with tachycardia, high white count and confusion Bibasilar infiltrates on CXR Possible aspiration One of blood culture grew GPC in clusters Got one dose of vancomycin. MRSA PCR on the positive blood cultures came back negative +Blood culture finalized as CONS. Likely contaminant Repeat blood culture negative Continue cefepime, doxycycline and flagyl Day 7 Leukocytosis resolved (2) Unresponsive episode: Reported to have unresponsive episode at the care home and also in the hospital Likely due to current illness - sepsis from pneumonia, ?? bacteremia Mental status continue to improve Per discussion with patient's son, baseline mental status is usually at least alert and oriented to person and place and able to hold conversation but has b een weaker since recent hospitalization (3) Oropharyngeal dysphagia: Status post PEG tube placement during last admission Continue with PEG tube feeding and medications Strict NPO (4) JOANN (acute kidney injury): JOANN on CKD3 Cr 2.62 on admission >>2.76 Likely ATN in the setting of possible sepsis Currently improving, Cr is 1.1 Restart Bumex Continue to hold losartan Nurse Supervisor on board Tube flushes at 200cc q4h for now Hold off IVF for now Monitor and avoid nephrotoxins (5) (HFpEF) heart failure with preserved ejection fraction: Held bumex initially in the setting of JOANN Restarted Bumex hold other antihypertensives. BP currently stable (6) Type 2 diabetes mellitus: Continue lantus and sliding scale q6h while on tube feeding Pharm on board (7) PVD (peripheral vascular disease): Has chronic skin changes bilaterally Wound consult for sacral skin breakdown Regular turning and skin care (8) Asthma, moderate: No acute exacerbation Urinary retention Discussed with RN. Plan to assess and possible dc godfrey once patient is able to notify RN to mitigate further skin breakdown DVT prophylaxis: Subcu heparin PT/OT CODE STATUS: DNR Pt is not moving by herself. Needs assistance with performing physical exam, and obtaining vital signs. Recently, during last admission, PEG tube placed d/t dysphagia. Now readmitted d/t unresponsive episode likely secondary to pneumonia. Overall prognosis is poor. Discussed with pt's son Luis, over the phone. Palliative medicine consulted. Admission and Anticipated Discharge Date Admission Date: July 24, 2020 Subjective Pt is laying in bed. She has been very weak, today more somnolent. She is sleeping but able to answer simple questions and follows simple commands. No fever, chills, chest pain or abdominal pain. Breathing comfortably, reports occasional cough. Pt is hardly moving, need for assistance with physical exam, also needs help during obtaining vital signs. Pt's son updated over the phone yesterday and palliative medicine consulted. Plan to fill out POLST. Review of Systems Review of Systems: All systems reviewed & are unremarkable except as noted in HPI & below Constitutional: + fatigue; no fever and no chills Respiratory: no dyspnea Cardiovascular: no chest pain and no palpitations Gastrointestinal: no abdominal pain Physical Exam Physical Exam: Constitutional: elderly female laying in bed, + chronically ill appearing, pale, in no acute distress Eyes: PERRL, EOMI, conjunctivae normal, anicteric sclerae ENMT: external ear and nose normal, oropharynx normal Respiratory: no respiratory distress Auscultation: + diminished lung sounds Cardiovascular: Rate/Rhythm: + irregularly irregular S1 S2 Gastrointestinal (Abdomen): normal bowel sounds, soft, nontender, PEG tube visualized Musculoskeletal: Upper extremity edema much improved LE no edema but has chronic stasis changes Moisture skin excoriation on back Neurologic: Alert oriented to person only, follows commands, moves extremities (UE>LE) no focal deficits Results & Data Results & Data ([facility]) Vital Signs (Past 12 Hours) Vital Signs Temp Pulse Pulse Resp BP BP Pulse Ox 07/31/20 07:36 36.9 C 85 16 132/71 97 07/31/20 07:28 36.9 C 92 H 16 155/74 H 95 07/31/20 07:22 87 07/31/20 04:00 36.7 C 84 20 151/61 H 95 07/30/20 22:58 37.1 C 86 22 119/57 L 95 Laboratory Results 07/31/20 07/31/20 07/31/20 Range/Units 05:51 05:51 05:37 WBC 9.11 (4.8-10.8) K/uL RBC 3.03 L (4.2-5.4) M/uL Hgb 9.7 L (12.0-16.0) g/dL Hct 29.3 L (37-47) % MCV 96.7 (80-100) fL MCH 32.0 (25-34) pg MCHC 33.1 (32-36) g/dL RDW Std Deviation 63.0 H (36.4-46.3) fL RDW Coeff of Adolph 18.1 H (11.5-14.5) % Plt Count 202 (130-400) K/uL MPV 10.5 H (7.4-10.4) fL Sodium 134 L (136-145) mmol/L Potassium 4.9 (3.5-5.1) mmol/L Chloride 104 (98-107) mmol/L Carbon Dioxide 26 (21-32) mmol/L Anion Gap 4.0 (3-11) BUN 60 H (7-18) mg/dl Creatinine 1.09 (0.6-1.2) mg/dl Est Cr Clr Drug Dosing 37.1 ml/min Est GFR ( Amer) 52.1 Est GFR (Non-Af Amer) 45.0 BUN/Creatinine Ratio 55.2 H (10-20) Glucose 97 (70-99) mg/dl POC Glucose 107 H (70-99) mg/dl Calcium 8.0 L (8.5-10.1) mg/dl Phosphorus 2.5 (2.5-4.9) mg/dl Magnesium 1.7 L (1.8-2.4) mg/dl 07/31/20 07/30/20 07/30/20 Range/Units 00:05 20:41 17:47 WBC (4.8-10.8) K/uL RBC (4.2-5.4) M/uL Hgb (12.0-16.0) g/dL Hct (37-47) % MCV (80-100) fL MCH (25-34) pg MCHC (32-36) g/dL RDW Std Deviation (36.4-46.3) fL RDW Coeff of Adolph (11.5-14.5) % Plt Count (130-400) K/uL MPV (7.4-10.4) fL Sodium (136-145) mmol/L Potassium (3.5-5.1) mmol/L Chloride (98-107) mmol/L Carbon Dioxide (21-32) mmol/L Anion Gap (3-11) BUN (7-18) mg/dl Creatinine (0.6-1.2) mg/dl Est Cr Clr Drug Dosing ml/min Est GFR ( Amer) Est GFR (Non-Af Amer) BUN/Creatinine Ratio (10-20) Glucose (70-99) mg/dl POC Glucose 116 H 151 H 177 H (70-99) mg/dl Calcium (8.5-10.1) mg/dl Phosphorus (2.5-4.9) mg/dl Magnesium (1.8-2.4) mg/dl 07/30/20 07/30/20 Range/Units 11:32 08:07 WBC (4.8-10.8) K/uL RBC (4.2-5.4) M/uL Hgb (12.0-16.0) g/dL Hct (37-47) % MCV (80-100) fL MCH (25-34) pg MCHC (32-36) g/dL RDW Std Deviation (36.4-46.3) fL RDW Coeff of Adolph (11.5-14.5) % Plt Count (130-400) K/uL MPV (7.4-10.4) fL Sodium 133 L (136-145) mmol/L Potassium 5.1 (3.5-5.1) mmol/L Chloride 104 (98-107) mmol/L Carbon Dioxide 24 (21-32) mmol/L Anion Gap 5.0 (3-11) BUN 67 H (7-18) mg/dl Creatinine 1.28 H (0.6-1.2) mg/dl Est Cr Clr Drug Dosing 31.3 ml/min Est GFR ( Amer) 42.9 Est GFR (Non-Af Amer) 37.0 BUN/Creatinine Ratio 52.1 H (10-20) Glucose 131 H (70-99) mg/dl POC Glucose 173 H (70-99) mg/dl Calcium 8.4 L (8.5-10.1) mg/dl Phosphorus 1.8 L (2.5-4.9) mg/dl Magnesium 1.5 L (1.8-2.4) mg/dl Medications Administered Current Inpatient Medications Acetaminophen (Acetaminophen 325 Mg Tab) 650 mg PO Q4H PRN PRN Reason: Fever Or Pain Stop: 08/23/20 22:55 Acetaminophen (Acetaminophen 500 Mg Tab) 500 mg PO HS BRANDON Stop: 08/24/20 20:59 Last Admin: 07/30/20 20:23 Dose: 500 mg Documented by: Albuterol (Albut/Ipratrop 3mg/0.5mg Neb 3 Ml Vial) 3 ml INH Q4H PRN PRN Reason: Wheezing Stop: 08/23/20 22:55 Allopurinol (Allopurinol 100 Mg Tab) 200 mg PO DAILY BRANDON Stop: 08/24/20 08:59 Last Admin: 07/30/20 08:45 Dose: 200 mg Documented by: Amlodipine Besylate (Amlodipine Besylate 5 Mg Tab) 5 mg PO DAILY BRANDON Stop: 08/24/20 08:59 Last Admin: 07/25/20 07:51 Dose: 5 mg Documented by: Aspirin (Aspirin 81 Mg Chew) 81 mg PEG DAILY BRANDON Stop: 08/26/20 09:59 Last Admin: 07/30/20 08:45 Dose: 81 mg Documented by: Bumetanide (Bumetanide 1 Mg Tab) 1 mg PO QAM BRANDON Stop: 08/28/20 23:34 Last Admin: 07/30/20 00:07 Dose: 1 mg Documented by: Chlorhexidine Gluconate (Chlorhexidine Gluconate 0.12% 480 Ml) 15 ml MT BID BRANDON Stop: 08/24/20 08:59 Last Admin: 07/30/20 20:25 Dose: 15 ml Documented by: Dextrose (Dextrose 50% 50 Ml Syringe) 25 - 50 ml IV UD PRN; Protocol PRN Reason: Hypoglycemia Protocol Stop: 08/24/20 08:53 Enteral Nutritional Formula (Peptamen 1.5 Bhavin 1,000 Ml Bag) 1,000 ml PEG UD BRANDON; Protocol Stop: 08/29/20 16:14 Last Admin: 07/30/20 17:52 Dose: 1,000 ml Documented by: Fluticasone Propionate (Fluticasone Propionate Na Spr 16 Gm Btl) 2 sprays NA DAILY BRANDON Stop: 08/24/20 08:59 Last Admin: 07/30/20 08:47 Dose: 2 sprays Documented by: Fluticasone/Vilanterol (Fluticasone/Vilanterol 200/25mcg 14 Puffs/Inhaler) 1 puffs INH DAILY BRANDON Stop: 08/24/20 08:59 Last Admin: 07/30/20 08:47 Dose: 1 puffs Documented by: Glucagon (Glucagon For Inj 1 Mg Vial) 1 mg SQ UD PRN; Protocol PRN Reason: Hypoglycemia Protocol Stop: 08/24/20 08:53 Glucose (Glucose 10 Tabs/Tube) 4 - 8 tabs PO UD PRN; Protocol PRN Reason: Hypoglycemia Protocol Stop: 08/24/20 08:53 Glucose (Glucose 40% Gel 15 Gm Tube) 15 - 30 gm PO UD PRN; Protocol PRN Reason: Hypoglycemia Protocol Stop: 08/24/20 08:53 Heparin Sodium (Porcine) (Heparin Sod 5,000 Unit/0.5 Ml Vial) 5,000 units SQ Q12 BRANDON Stop: 08/24/20 20:59 Last Admin: 07/30/20 20:24 Dose: 5,000 units Documented by: Doxycycline Hyclate 100 mg/ (Dextrose) 110 mls @ 50 mls/hr IV Q12H [facility] Stop: 07/31/20 21:59 Last Infusion: 07/31/20 00:15 Dose: Infused Documented by: Metronidazole (Flagyl) 500 mg in 100 mls @ 100 mls/hr IV Q8H [facility] Stop: 08/01/20 12:59 Last Infusion: 07/31/20 05:51 Dose: Infused Documented by: Cefepime HCl 2,000 mg/ Syringe 20 mls @ 5 mls/min IV DAILY@1600 BRANDON; Protocol Stop: 08/05/20 15:59 Last Admin: 07/30/20 16:32 Dose: 5 mls/min Documented by: Magnesium Sulfate/Dextrose (Magnesium Sulfate / D5w) 1 gm in 100 mls @ 50 mls/hr IV ONE ONE Stop: 07/31/20 10:12 Insulin Glargine (Insulin Glargine Solostar 100 Units/Ml 3 Ml Pen) 15 units SQ DAILY@0600 [facility] Stop: 08/27/20 07:14 Last Admin: 07/31/20 06:23 Dose: 15 units Documented by: Insulin Human Regular (Insulin Human Regular) 0 units SC Q6 [facility]; Protocol Stop: 08/26/20 11:59 Last Admin: 07/31/20 06:22 Dose: 2 units Documented by: Lansoprazole (Lansoprazole 30 Mg Soltab) 30 mg PEG DAILY [facility]; Protocol Stop: 08/27/20 08:59 Last Admin: 07/30/20 08:45 Dose: 30 mg Documented by: Loratadine (Loratadine 10 Mg Tab) 10 mg PO DAILY BRANDON Stop: 08/24/20 08:59 Last Admin: 07/30/20 08:45 Dose: 10 mg Documented by: Losartan Potassium (Losartan Potassium 25 Mg Tab) 12.5 mg PO DAILY BRANDON Stop: 08/24/20 08:59 Last Admin: 07/25/20 07:48 Dose: 12.5 mg Documented by: Metoclopramide HCl (Metoclopramide Hcl 5 Mg Tablet) 5 mg PO BIDM PRN PRN Reason: nausea and vomiting Stop: 08/23/20 22:55 Metoprolol Tartrate (Metoprolol Tartrate 25 Mg Tab) 12.5 mg PO QAM BRANDON Stop: 08/24/20 08:59 Last Admin: 07/25/20 07:49 Dose: 12.5 mg Documented by: Miconazole Nitrate (Miconazole Nitrate Powder 43 Gm) 1 appln EXT PRN PRN PRN Reason: rash Stop: 08/23/20 22:55 Last Admin: 07/27/20 07:56 Dose: 1 appln Documented by: Mirtazapine (Mirtazapine Tab 15 Mg Tab) 30 mg PO HS BRANDON Stop: 08/24/20 20:59 Last Admin: 07/30/20 20:24 Dose: 30 mg Documented by: Miscellaneous (Azelastine Ns~Order Awaiting Action) 1 ea N/A QS [facility] Stop: 08/24/20 07:59 Last Admin: 07/31/20 00:29 Dose: Not Given Documented by: Miscellaneous (Carbohydrates For Hypoglycemia ) 15 - 30 gm PO UD PRN PRN Reason: Hypoglycemia Protocol Stop: 08/24/20 08:53 Miscellaneous Information (Cefepime Consult Active) 1 ea N/A UD PRN PRN Reason: Consult Stop: 08/24/20 00:15 Miscellaneous Information (Pharmacy Glycemic Mgmt Consult) 1 ea N/A UD PRN; Protocol PRN Reason: Consult Stop: 08/24/20 09:06 Montelukast Sodium (Montelukast Sodium 10 Mg Tablet) 10 mg PO DAILY BRANDON Stop: 08/24/20 08:59 Last Admin: 07/30/20 08:46 Dose: 10 mg Documented by: Multi-Ingredient Cream (Eucerin Cr 120 Gm Jar) 1 appln EXT BID BRANDON Stop: 08/24/20 08:59 Last Admin: 07/30/20 21:00 Dose: 1 appln Documented by: Nystatin (Nystatin Cr 15 Gm Tube) 1 appln EXT BID BRANDON Stop: 08/24/20 08:59 Last Admin: 07/30/20 20:26 Dose: 1 appln Documented by: Senna/Docusate Sodium (Docusate Sodium/Senna 50/8.6mg Tab) 2 tab PO BID BRANDON Stop: 08/24/20 08:59 Last Admin: 07/30/20 20:24 Dose: 2 tab Documented by: Sodium Chloride (Sodium Chloride 0.65% Na Soln 45 Ml (Ellis)) 2 sprays NA DAILY BRANDON Stop: 08/24/20 08:59 Last Admin: 07/30/20 08:47 Dose: 2 sprays Documented by: Sterile Water (Tube Feeding Water Flush) 200 ml GT Q4H BRANDON Stop: 08/29/20 14:29 Last Admin: 07/31/20 06:30 Dose: 200 ml Documented by:
[2020-07-31] MEDS: FLUTICASONE/VILANTEROL 200/25MCG 14 PUFFS/INHALER INH SCH (08:34)
[2020-07-31] MEDS: ASPIRIN 81 MG CHEW PEG SCH (08:34)
[2020-07-31] MEDS: LORATADINE 10 MG TAB PO SCH (08:34)
[2020-07-31] MEDS: BUMETANIDE 1 MG TAB PO SCH (08:34)
[2020-07-31] MEDS: FLUTICASONE PROPIONATE NA SPR 16 GM BTL SCH (08:35)
[2020-07-31] MEDS: SODIUM CHLORIDE 0.65% NA SOLN 45 ML (OCEAN) SCH (08:35)
[2020-07-31] MEDS: DOCUSATE SODIUM/SENNA 50/8.6MG TAB PO SCH ×2 (08:35→20:55)
[2020-07-31] MEDS: LANSOPRAZOLE 30 MG SOLTAB PEG SCH (08:35)
[2020-07-31] MEDS: MONTELUKAST SODIUM 10 MG TABLET PO SCH (08:36)
[2020-07-31] MEDS: allopurinoL 100 MG TAB PO SCH (08:36)
[2020-07-31] MEDS: HEPARIN SOD 5,000 UNIT/0.5 ML VIAL SQ SCH ×2 (08:37→20:54)
[2020-07-31] MEDS: CHLORHEXIDINE GLUCONATE 0.12% 480 ML MT SCH ×2 (08:37→20:55)
[2020-07-31] MEDS: NYSTATIN CR 15 GM TUBE EXT SCH ×2 (08:37→20:55)
[2020-07-31] MEDS: EUCERIN CR 120 GM JAR EXT SCH ×2 (08:37→20:55)
[2020-07-31] MEDS ORDERED: MAGNESIUM SULFATE / D5W 1 GM/100 ML BAG IV ONE (09:00)
[2020-07-31] MEDS: DOXYCYCLINE HYCLATE 100 MG in DEXTROSE 5% 100 ML IV SCH (09:34)
--- NOTE | 2020-07-31 09:39 | Pharmacy Report ---
Pharmacy Glycemic Short Note 2 - Date of Service July 31, 2020 - Glycemic Short BSG Results (Last 24 hours): 07/30/20 07/30/20 07/30/20 11:32 17:47 20:41 Glucose POC Glucose 173 H 177 H 151 H 07/31/20 07/31/20 07/31/20 00:05 05:37 05:51 Glucose 97 POC Glucose 116 H 107 H OUTPATIENT ANTIDIABETIC REGIMEN: * Basaglar 15 units SQ QAM * Novolog sliding scale ASSESSMENT: 07/31: * Pt has been received 37 units of insulin over the past 24 hrs * 15 units of basal insulin with Lantus * 22 units of bolus insulin with Regular insulin to cover CHO in continuous tube feedings (6 units SQ q6hrs) * BSGs ranging 107-177 mg/dl which may be too tight of control based on age/co-morbidities * Continuous tube feedings changed from fibersource to peptamen. Peptamen contains MORE CHO per liter than fibersource but the goal rate is lower with the peptamen which evens out the number of CHO delivered over 6 hrs. * BSGs running on the lower end of the goal range. Will taper insulin regimen sl ightly. * Insulin regimen will need significantly decreased if tube feeds are stopped. 07/30: * Pt has been receiving ~ 40 units of insulin per day with adequate control * 15 units of basal insulin with Lantus * 24 units of bolus insulin with Regular insulin to cover CHO in continuous tube feedings (6 units SQ q6hrs) * BSGs ranging 131-173 mg/dl which is adequate based on age/co-morbidities * No changes needed to regimen at this time. Insulin regimen will need significantly decreased if tube feeds are stopped. 07/28/20 * Stressors stable * BSG's trending up gradually, now slightly above 180 mg/dL. Will tighten CHO ratio to provide more coverage for tubefeeds with each q6h check 07/27/20 * No changes to stressors noted * BSG's trended down nicely after started covering CHO in tubefeeds yesterday. CHO in TF not covered overnight x2-3 checks therefore BSG elevated this AM. Anticipate improvement with again covering CHO in TF * OK to change from q4h to q6h checks, but will then also switch from Novolog to regular insulin to provide coverage for the full 6 hour interval 07/26/20 * Patient is continual tube feeds- Fibersource running at 60 ml/hr. * Patient received total 36 units of insulin yesterday: 15 units basal + 21 units bolus. * Fasting BSG this AM 147 and pre-breakfast BSG= 181. Continue same basal but slightly tightened Novolog CF this AM. * Pre-lunch BSG at goal = 144. PLAN FOR INPATIENT GLYCEMIC CONTROL: * Basal insulin * Decrease Lantus 15 units SQ QAM to Lantus 12 units SQ AM * Bolus insulin: loosen CF/CR * Regular insulin per scale Q6h while on tube feeds. * Goal Range: Low 120 mg/dL - High 150 mg/dL * Correction Factor: 25 mg/dL/unit * Nutritional / Prandial insulin per carb ratio of 1 unit per 13 grams CHO consumed (including CHO in tubefeeds)
[2020-07-31] MEDS: CEFEPIME 2,000 MG in SYRINGE 0 ML IV SCH (16:02)
[2020-07-31] MEDS: PEPTAMEN 1.5 CAL 1,000 ML BAG PEG SCH (19:06)
--- NOTE | 2020-07-31 20:38 | CT Scan Report ---
CT OF THE HEAD WITHOUT CONTRAST CLINICAL HISTORY: increased somnolence/ AMS COMPARISON STUDY: Head CT July 24, 2020. CT DOSE: 537.48 mGy.cm TECHNIQUE: Helical axial images of the head were obtained without IV contrast. Automated exposure con trol was utilized for the study. A dose lowering technique was utilized adhering to the principles o f ALARA. FINDINGS: No acute intracranial hemorrhage, midline shift or mass effect is present. The ventricular system is stable. White matter hypodensities are unchanged and suggest small vessel disease. The basa l cisterns are patent. No extra-axial collections are present. There are no findings to suggest acute dural sinus thrombosis or acute territorial infarct. No significant calvarial abnormalities are pres ent. Visualized portions of the sinuses and mastoid air cells are clear. IMPRESSION: No acute intracranial findings. No change in appearance of the brain. ACT 112: Negative or not required by law. Electronically signed by: Declan Person M.D. 07/31/2020 8:37 PM
[2020-07-31] MEDS: ACETAMINOPHEN 500 MG TAB PO SCH (20:56)
[2020-07-31 22:40] LABS: Allen Test Pos (Pos); Base Excess ABG -1.1 mEq/L (-9-1.8); HCO3 ABG 23 mmol/L (19-24); Oxygen Saturation ABG 97.9 % (90-95); PCO2 ABG 36 mmHg (35-46); PO2 ABG 102 mmHg (80-95); pH ABG 7.43 (7.35-7.45)
[2020-08-01] MEDS: INSULIN HUMAN REGULAR SC SCH ×5 (01:23→23:59)
[2020-08-01] MEDS: TUBE FEEDING WATER FLUSH GT SCH ×6 (03:16→22:30)
[2020-08-01 06:16] LABS: BUN Creatinine Ratio 56.2 (10-20); Calcium 6.6 mg/dl (8.5-10.1); Creatinine Clr Calc Pharmacy 47.1 ml/min; Est GFR (African American) 69.4; Est GFR (Non-African American) 59.9; Magnesium 1.5 mg/dl (1.8-2.4); Phosphorus 2.3 mg/dl (2.5-4.9); Potassium 4.5 mmol/L (3.5-5.1)
[2020-08-01] MEDS: metroNIDAZOLE 500 MG/100 ML BAG IV SCH (06:25)
[2020-08-01] MEDS: INSULIN GLARGINE SOLOSTAR 100 UNITS/ML 3 ML PEN SQ SCH (06:26)
[2020-08-01] MEDS: FLUTICASONE/VILANTEROL 200/25MCG 14 PUFFS/INHALER INH SCH (07:57)
[2020-08-01] MEDS: ASPIRIN 81 MG CHEW PEG SCH (07:57)
[2020-08-01] MEDS: BUMETANIDE 1 MG TAB PO SCH (07:58)
[2020-08-01] MEDS: FLUTICASONE PROPIONATE NA SPR 16 GM BTL SCH (07:58)
[2020-08-01] MEDS: LORATADINE 10 MG TAB PO SCH (07:58)
[2020-08-01] MEDS: DOCUSATE SODIUM/SENNA 50/8.6MG TAB PO SCH ×2 (07:59→20:50)
[2020-08-01] MEDS: SODIUM CHLORIDE 0.65% NA SOLN 45 ML (OCEAN) SCH (07:59)
[2020-08-01] MEDS: LANSOPRAZOLE 30 MG SOLTAB PEG SCH (07:59)
[2020-08-01] MEDS: MONTELUKAST SODIUM 10 MG TABLET PO SCH (07:59)
[2020-08-01] MEDS: allopurinoL 100 MG TAB PO SCH (08:00)
[2020-08-01] MEDS ORDERED: MAGNESIUM SULFATE / D5W 1 GM/100 ML BAG IV ONE (08:00)
[2020-08-01] MEDS: CHLORHEXIDINE GLUCONATE 0.12% 480 ML MT SCH ×2 (08:00→20:50)
[2020-08-01] MEDS: EUCERIN CR 120 GM JAR EXT SCH ×2 (08:01→20:50)
[2020-08-01] MEDS: NYSTATIN CR 15 GM TUBE EXT SCH ×2 (08:01→20:50)
[2020-08-01] MEDS: HEPARIN SOD 5,000 UNIT/0.5 ML VIAL SQ SCH ×2 (08:03→20:49)
[2020-08-01] MEDS ORDERED: CALCIUM GLUCONATE 10% 1,000 MG in SODIUM CHLORIDE 0.9% 50 ML IV ONE (08:30)
--- NOTE | 2020-08-01 08:36 | XRay Report ---
XR chest 1V portable CLINICAL HISTORY: follow up COMPARISON STUDY: 07/24/2020 FINDINGS: The cardiac and mediastinal contours remain stable. There are persistent bilateral mid to l ower lung zone airspace opacities with associated small pleural effusions. There is slight elevation of interstitium and an element of mild pulmonary vascular congestion is suspected.[ IMPRESSION: 1. Persistent bilateral pulmonary airspace opacities with small bilateral pleural effusions 2. Suspected mild pulmonary vascular congestion/fluid overload ACT 112: Negative or not required by law. Electronically signed by: Yury Pierre M.D. 08/01/2020 8:35 AM
[2020-08-01 08:43] LABS: Appearance Urine Cloudy (Clear); Bacteria Urine Automated Negative (Negative); Bilirubin Urine Negative (Negative); Blood Urine Negative (Negative); Color Urine Yellow; Epithelial Cell Urine Auto >30 /lpf (0-5); Glucose Urine UA Negative (Negative); Ketones Urine Negative (Negative); Leukocyte Esterase Urine 2+ (Negative); Nitrite Urine Negative (Negative); Protein Urine 1+ (Negative); Specific Gravity Urine 1.018 (1.000-1.030); Urobilinogen Urine Negative (Negative); WBC Urine Automated >30 /hpf (0-5)
[2020-08-01 09:11] LABS: RBC Urine Automated 0-4 /hpf (0-4)
--- NOTE | 2020-08-01 09:48 | Hospitalist Progress Note ---
Date of Service August 01, 2020 Assessment & Plan (1) Pneumonia: Met sepsis criteria on admission with tachycardia, high white count and confusion Bibasilar infiltrates on CXR Possible aspiration One of blood culture grew GPC in clusters Got one dose of vancomycin. MRSA PCR on the positive blood cultures came back negative +Blood culture finalized as CONS. Likely contaminant Repeat blood culture negative Continue cefepime, doxycycline and flagyl Day 8 Leukocytosis resolved (2) Unresponsive episode: Reported to have unresponsive episode at the alf and also in the hospital Likely due to current illness - sepsis from pneumonia, ?? bacteremia Mental status continue to improve Per discussion with patient's son, baseline mental status is usually at least alert and oriented to person and place and able to hold conversation but has b een weaker since recent hospitalization Patient was again very somnolent yesterday, July 31, work-up unrevealing Currently she seems to be back to baseline, appears very fatigued and somnolent however easily arousable and answering questions mostly appropriately, satting 97% on room air (3) Oropharyngeal dysphagia: Status post PEG tube placement during last admission Continue with PEG tube feeding and medications Strict NPO (4) JOANN (acute kidney injury): JOANN on CKD3, now resolved Cr 2.62 on admission >>2.76 Likely ATN in the setting of possible sepsis Currently improving, Cr is <1 Restart Bumex Restart losartan Numerical Control Operator on 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 BP currently stable (6) Type 2 diabetes mellitus: Continue lantus and sliding scale q6h while on tube feeding Pharm on board (7) PVD (peripheral vascular disease): Has chronic skin changes bilaterally Wound consult for sacral skin breakdown Regular turning and skin care (8) Asthma, moderate: No acute exacerbation Urinary retention Discussed with RNSheela Espinosa today (08/01), check UA DVT prophylaxis: Subcu heparin PT/OT CODE STATUS: DNR Pt is not moving by herself. Needs assistance with performing physical exam, and obtaining vital signs. Recently, during last admission, PEG tube placed d/t dysphagia. Now readmitted d/t unresponsive episode likely secondary to pneumonia. Overall prognosis is poor. Discussed with pt's son Luis, at the bedside last evening. Palliative medicine consulted. Admission and Anticipated Discharge Date Admission Date: July 24, 2020 Subjective Patient was more somnolent yesterday, therefore work-up obtained, including ABG, ammonia level, lactic acid, x-ray, head CT. All the work-up unremarkable, except for a mild pulmonary pleural effusion. Currently patient is sitting up in bed, satting on room air 97%. She is easily awoken and answers questions mostly appropriately. Seems that patient is back at baseline, however fatigued. Patient is on Bumex, and per our records she is net negative. Currently patient has no complaints, specifically denies any chest pain, shortness of breath, abdominal pain. Review of Systems Review of Systems: All systems reviewed & are unremarkable except as noted in HPI & below Constitutional: + fatigue Respiratory: no cough and no dyspnea Cardiovascular: no chest pain and no palpitations Gastrointestinal: no abdominal pain, no nausea and no vomiting Physical Exam Physical Exam: Constitutional: elderly female laying in bed, + chronically ill appearing, pale, in no acute distress Eyes: PERRL, EOMI, conjunctivae normal, anicteric sclerae ENMT: external ear and nose normal, oropharynx normal Respiratory: no respiratory distress Auscultation: CTAB, no wheezing, rhonchi noted, diminished lung sounds at bases Cardiovascular: Rate/Rhythm: + irregularly irregular S1 S2 Gastrointestinal (Abdomen): normal bowel sounds, soft, nontender, PEG tube visualized Musculoskeletal: Upper extremity edema much improved LE no edema but has chronic stasis changes Moisture skin excoriation on back Neurologic: somnolent but easily arousable, answers most questions appropriately, follows commands, moves extremities (UE>LE) no focal deficits Results & Data Results & Data ([facility]) Vital Signs (Past 12 Hours) Vital Signs Temp Pulse Pulse Resp BP Pulse Ox 08/01/20 08:01 36.9 C 80 20 141/60 H 97 08/01/20 07:17 89 08/01/20 04:00 36.5 C 79 18 135/72 95 08/01/20 02:58 95 08/01/20 01:40 98 08/01/20 01:39 99 08/01/20 00:00 36.5 C 80 85 18 135/74 100 Laboratory Results 08/01/20 08/01/20 08/01/20 Range/Units 08:24 06:07 05:31 ABG pH (7.35-7.45) ABG pCO2 (35-46) mmHg ABG pO2 (80-95) mmHg ABG HCO3 (19-24) mmol/L ABG O2 Saturation (90-95) % ABG Base Excess (-9-1.8) mEq/L Jose Test (Pos) Barometric Pressure mm/Hg Oxygen Given Sodium (136-145) mmol/L Potassium (3.5-5.1) mmol/L Chloride (98-107) mmol/L Carbon Dioxide (21-32) mmol/L Anion Gap (3-11) BUN (7-18) mg/dl Creatinine (0.6-1.2) mg/dl Est Cr Clr Drug Dosing ml/min Est GFR ( Amer) Est GFR (Non-Af Amer) BUN/Creatinine Ratio (10-20) Glucose (70-99) mg/dl POC Glucose 170 H (70-99) mg/dl Lactate (0.4-2.0) mmol/L Calcium (8.5-10.1) mg/dl Phosphorus (2.5-4.9) mg/dl Magnesium (1.8-2.4) mg/dl Ammonia (11-32) umol/L NT-Pro-B Natriuret Pep 8006 H (0-1800) pg/ml Urine Color Yellow Urine Appearance Cloudy A (Clear) Urine pH 5.0 (4.5-7.5) Ur Specific [place] 1.018 (1.000-1.030) Urine Protein 1+ H (Negative) Urine Glucose (UA) Negative (Negative) Urine Ketones Negative (Negative) Urine Blood Negative (Negative) Urine Nitrite Negative (Negative) Urine Bilirubin Negative (Negative) Urine Urobilinogen Negative (Negative) Ur Leukocyte Esterase 2+ H (Negative) Urine WBC (Auto) >30 H (0-5) /hpf Urine RBC (Auto) 0-4 (0-4) /hpf U Hyaline Cast (Auto) 5-10 H (0-5) /lpf U Epithel Cells (Auto) >30 H (0-5) /lpf Urine Bacteria (Auto) Negative (Negative) Ur Renal Epithelial Cell 5-10 H (0-5) /lpf Granular Casts 1-5 H (0) /lpf WBC Casts 1-5 H (0) /lpf Urine Yeast Budding w/ Hyphae A (None Prsent) 08/01/20 07/31/20 07/31/20 Range/Units 05:31 23:54 22:16 ABG pH 7.43 (7.35-7.45) ABG pCO2 36 (35-46) mmHg ABG pO2 102 H (80-95) mmHg ABG HCO3 23 (19-24) mmol/L ABG O2 Saturation 97.9 H (90-95) % ABG Base Excess -1.1 (-9-1.8) mEq/L Jose Test Pos (Pos) Barometric Pressure 741.4 mm/Hg Oxygen Given 2.5 LITERS Sodium 138 (136-145) mmol/L Potassium 4.5 (3.5-5.1) mmol/L Chloride 112 H (98-107) mmol/L Carbon Dioxide 23 (21-32) mmol/L Anion Gap 3.0 (3-11) BUN 48 H (7-18) mg/dl Creatinine 0.86 (0.6-1.2) mg/dl Est Cr Clr Drug Dosing 47.1 ml/min Est GFR ( Amer) 69.4 Est GFR (Non-Af Amer) 59.9 BUN/Creatinine Ratio 56.2 H (10-20) Glucose 151 H (70-99) mg/dl POC Glucose 156 H (70-99) mg/dl Lactate (0.4-2.0) mmol/L Calcium 6.6 L D (8.5-10.1) mg/dl Phosphorus 2.3 L (2.5-4.9) mg/dl Magnesium 1.5 L (1.8-2.4) mg/dl Ammonia (11-32) umol/L NT-Pro-B Natriuret Pep (0-1800) pg/ml Urine Color Urine Appearance (Clear) Urine pH (4.5-7.5) Ur Specific [place] (1.000-1.030) Urine Protein (Negative) Urine Glucose (UA) (Negative) Urine Ketones (Negative) Urine Blood (Negative) Urine Nitrite (Negative) Urine Bilirubin (Negative) Urine Urobilinogen (Negative) Ur Leukocyte Esterase (Negative) Urine WBC (Auto) (0-5) /hpf Urine RBC (Auto) (0-4) /hpf U Hyaline Cast (Auto) (0-5) /lpf U Epithel Cells (Auto) (0-5) /lpf Urine Bacteria (Auto) (Negative) Ur Renal Epithelial Cell (0-5) /lpf Granular Casts (0) /lpf WBC Casts (0) /lpf Urine Yeast (None Prsent) 07/31/20 07/31/20 07/31/20 Range/Units 22:16 22:16 22:16 ABG pH (7.35-7.45) ABG pCO2 (35-46) mmHg ABG pO2 (80-95) mmHg ABG HCO3 (19-24) mmol/L ABG O2 Saturation (90-95) % ABG Base Excess (-9-1.8) mEq/L Jose Test (Pos) Barometric Pressure mm/Hg Oxygen Given Sodium (136-145) mmol/L Potassium (3.5-5.1) mmol/L Chloride (98-107) mmol/L Carbon Dioxide (21-32) mmol/L Anion Gap (3-11) BUN (7-18) mg/dl Creatinine (0.6-1.2) mg/dl Est Cr Clr Drug Dosing ml/min Est GFR ( Amer) Est GFR (Non-Af Amer) BUN/Creatinine Ratio (10-20) Glucose (70-99) mg/dl POC Glucose (70-99) mg/dl Lactate 0.9 (0.4-2.0) mmol/L Calcium (8.5-10.1) mg/dl Phosphorus (2.5-4.9) mg/dl Magnesium (1.8-2.4) mg/dl Ammonia 25.1 (11-32) umol/L NT-Pro-B Natriuret Pep 9673 H (0-1800) pg/ml Urine Color Urine Appearance (Clear) Urine pH (4.5-7.5) Ur Specific [place] (1.000-1.030) Urine Protein (Negative) Urine Glucose (UA) (Negative) Urine Ketones (Negative) Urine Blood (Negative) Urine Nitrite (Negative) Urine Bilirubin (Negative) Urine Urobilinogen (Negative) Ur Leukocyte Esterase (Negative) Urine WBC (Auto) (0-5) /hpf Urine RBC (Auto) (0-4) /hpf U Hyaline Cast (Auto) (0-5) /lpf U Epithel Cells (Auto) (0-5) /lpf Urine Bacteria (Auto) (Negative) Ur Renal Epithelial Cell (0-5) /lpf Granular Casts (0) /lpf WBC Casts (0) /lpf Urine Yeast (None Prsent) 07/31/20 07/31/20 Range/Units 18:02 11:48 ABG pH (7.35-7.45) ABG pCO2 (35-46) mmHg ABG pO2 (80-95) mmHg ABG HCO3 (19-24) mmol/L ABG O2 Saturation (90-95) % ABG Base Excess (-9-1.8) mEq/L Jose Test (Pos) Barometric Pressure mm/Hg Oxygen Given Sodium (136-145) mmol/L Potassium (3.5-5.1) mmol/L Chloride (98-107) mmol/L Carbon Dioxide (21-32) mmol/L Anion Gap (3-11) BUN (7-18) mg/dl Creatinine (0.6-1.2) mg/dl Est Cr Clr Drug Dosing ml/min Est GFR ( Amer) Est GFR (Non-Af Amer) BUN/Creatinine Ratio (10-20) Glucose (70-99) mg/dl POC Glucose 136 H 113 H (70-99) mg/dl Lactate (0.4-2.0) mmol/L Calcium (8.5-10.1) mg/dl Phosphorus (2.5-4.9) mg/dl Magnesium (1.8-2.4) mg/dl Ammonia (11-32) umol/L NT-Pro-B Natriuret Pep (0-1800) pg/ml Urine Color Urine Appearance (Clear) Urine pH (4.5-7.5) Ur Specific [place] (1.000-1.030) Urine Protein (Negative) Urine Glucose (UA) (Negative) Urine Ketones (Negative) Urine Blood (Negative) Urine Nitrite (Negative) Urine Bilirubin (Negative) Urine Urobilinogen (Negative) Ur Leukocyte Esterase (Negative) Urine WBC (Auto) (0-5) /hpf Urine RBC (Auto) (0-4) /hpf U Hyaline Cast (Auto) (0-5) /lpf U Epithel Cells (Auto) (0-5) /lpf Urine Bacteria (Auto) (Negative) Ur Renal Epithelial Cell (0-5) /lpf Granular Casts (0) /lpf WBC Casts (0) /lpf Urine Yeast (None Prsent)
[2020-08-01] MEDS: LOSARTAN POTASSIUM 25 MG TAB PO SCH (12:11)
[2020-08-01] MEDS: CEFEPIME 2,000 MG in SYRINGE 0 ML IV SCH (15:46)
[2020-08-01] MEDS: PEPTAMEN 1.5 CAL 1,000 ML BAG PEG SCH (19:45)
[2020-08-01] MEDS: ACETAMINOPHEN 500 MG TAB PO SCH (20:49)
[2020-08-02] MEDS: TUBE FEEDING WATER FLUSH GT SCH ×6 (02:22→22:14)
[2020-08-02] MEDS: INSULIN GLARGINE SOLOSTAR 100 UNITS/ML 3 ML PEN SQ SCH (05:59)
[2020-08-02] MEDS: INSULIN HUMAN REGULAR SC SCH ×3 (06:00→18:06)
[2020-08-02 06:27] LABS: BUN Creatinine Ratio 53.5 (10-20); Calcium 7.4 mg/dl (8.5-10.1); Creatinine Clr Calc Pharmacy 47.4 ml/min; Est GFR (African American) 69.4; Est GFR (Non-African American) 59.9; Magnesium 1.6 mg/dl (1.8-2.4); Phosphorus 2.1 mg/dl (2.5-4.9)
[2020-08-02] MEDS ORDERED: SODIUM PHOSPHATE 3 MMOL/1 ML INFUSION IV STA (08:13)
--- NOTE | 2020-08-02 08:14 | Hospitalist Progress Note ---
Date of Service August 02, 2020 Assessment & Plan (1) Pneumonia: Met sepsis criteria on admission with tachycardia, high white count and confusion Bibasilar infiltrates on CXR Possible aspiration One of blood culture grew GPC in clusters Got one dose of vancomycin. MRSA PCR on the positive blood cultures came back negative +Blood culture finalized as CONS. Likely contaminant Repeat blood culture negative Continued cefepime, doxycycline and flagyl, finished abx course Leukocytosis resolved (2) Unresponsive episode: Reported to have unresponsive episode at the assisted and also in the hospital Likely due to current illness - sepsis from pneumonia, ?? bacteremia Mental status continue to improve Per discussion with patient's son, baseline mental status is usually at least alert and oriented to person and place and able to hold conversation but has been weaker since recent hospitalization Patient was again very somnolent on July 31, work-up unrevealing Currently awake and alert and answering questions mostly appropriately,satting 99% on room air (08/02) (3) Oropharyngeal dysphagia: Status post PEG tube placement during last admission Continue with PEG tube feeding and medications Strict NPO (4) JOANN (acute kidney injury): JOANN on CKD3, now resolved Cr 2.62 on admission >>2.76 Likely ATN in the setting of possible sepsis Currently Cr is <1 Restarted Bumex Restarted losartan, decrease dose Writer Producer on board Tube flushes at 200cc q4h for now Hold off IVF for now Monitor and avoid nephrotoxins Hypomagnesemia, hypophosphatemia -Low mag likely secondary to restarting Bumex -Replete and monitor (5) (HFpEF) heart failure with preserved ejection fraction: Held bumex initially in the setting of JOANN Restarted Bumex restarted losartan, decr. dose hold amlodipine, metoprolol, BP currently stable (6) Type 2 diabetes mellitus: Continue lantus and sliding scale q6h while on tube feeding Pharm on board (7) PVD (peripheral vascular disease): Has chronic skin changes bilaterally Wound consult for sacral skin breakdown Regular turning and skin care (8) Asthma, moderate: No acute exacerbation Urinary retention Discussed with RNSheela Espinosa (08/01), voiding w/o difficulty DVT prophylaxis: Subcu heparin PT/OT CODE STATUS: DNR Pt is not moving by herself. Needs assistance with performing physical exam, and obtaining vital signs. Recently, during last admission, PEG tube placed d/t dysphagia. Now readmitted d/t unresponsive episode likely secondary to pneumonia. Overall prognosis is poor. Discussed with pt's son Luis, at the bedside last evening. Palliative medicine consulted. Admission and Anticipated Discharge Date Admission Date: July 24, 2020 Subjective Patient is lying in bed, in no acute distress. She is awake, and answering questions appropriately. She denies any complaints. Specifically denies any chest pain, shortness of breath, abdominal pain. Currently patient is satting 99% on room air. Review of Systems Review of Systems: All systems reviewed & are unremarkable except as noted in HPI & below Constitutional: no fever and no chills Respiratory: no cough and no dyspnea Cardiovascular: no chest pain and no palpitations Gastrointestinal: no abdominal pain, no nausea and no vomiting Genitourinary: no dysuria Physical Exam Physical Exam: Constitutional: elderly female laying in bed, + chronically ill appearing, pale, in no acute distress Eyes: PERRL, EOMI, conjunctivae normal, anicteric sclerae ENMT: external ear and nose normal, oropharynx normal Respiratory: no respiratory distress Auscultation: CTAB, no wheezing, rhonchi noted, diminished lung sounds at bases Cardiovascular: Rate/Rhythm: + irregularly irregular S1 S2 Gastrointestinal (Abdomen): normal bowel sounds, soft, nontender, PEG tube visualized Musculoskeletal: Upper extremity edema much improved LE no edema but has chronic stasis changes Moisture skin excoriation on back Neurologic: awake and alert, answers most questions appropriately, follows commands, moves extremities (UE>LE) no focal deficits Results & Data Results & Data ([facility]) Vital Signs (Past 12 Hours) Vital Signs Temp Pulse Pulse Resp BP Pulse Ox 08/02/20 07:41 36.4 C L 84 18 126/60 97 08/02/20 04:00 36.4 C L 88 18 149/63 H 94 08/01/20 23:00 36.4 C L 74 18 134/71 98 08/01/20 22:20 66 Laboratory Results 08/02/20 08/02/20 08/02/20 Range/Units 12:00 05:50 05:27 Sodium 136 (136-145) mmol/L Potassium 5.0 (3.5-5.1) mmol/L Chloride 110 H (98-107) mmol/L Carbon Dioxide 22 (21-32) mmol/L Anion Gap 4.0 (3-11) BUN 46 H (7-18) mg/dl Creatinine 0.86 (0.6-1.2) mg/dl Est Cr Clr Drug Dosing 47.4 ml/min Est GFR ( Amer) 69.4 Est GFR (Non-Af Amer) 59.9 BUN/Creatinine Ratio 53.5 H (10-20) Glucose 108 H (70-99) mg/dl POC Glucose 142 H 125 H (70-99) mg/dl Calcium 7.4 L (8.5-10.1) mg/dl Phosphorus 2.1 L (2.5-4.9) mg/dl Magnesium 1.6 L (1.8-2.4) mg/dl Specimen Hemolysis 08/01/20 08/01/20 Range/Units 23:56 17:31 Sodium (136-145) mmol/L Potassium (3.5-5.1) mmol/L Chloride (98-107) mmol/L Carbon Dioxide (21-32) mmol/L Anion Gap (3-11) BUN (7-18) mg/dl Creatinine (0.6-1.2) mg/dl Est Cr Clr Drug Dosing ml/min Est GFR ( Amer) Est GFR (Non-Af Amer) BUN/Creatinine Ratio (10-20) Glucose (70-99) mg/dl POC Glucose 178 H 128 H (70-99) mg/dl Calcium (8.5-10.1) mg/dl Phosphorus (2.5-4.9) mg/dl Magnesium (1.8-2.4) mg/dl Specimen Hemolysis Medications Administered Current Inpatient Medications Acetaminophen (Acetaminophen 325 Mg Tab) 650 mg PO Q4H PRN PRN Reason: Fever Or Pain Stop: 08/23/20 22:55 Acetaminophen (Acetaminophen 500 Mg Tab) 500 mg PO HS [facility] Stop: 08/24/20 20:59 Last Admin: 08/01/20 20:49 Dose: 500 mg Documented by: Albuterol (Albut/Ipratrop 3mg/0.5mg Neb 3 Ml Vial) 3 ml INH Q4H PRN PRN Reason: Wheezing Stop: 08/23/20 22:55 Allopurinol (Allopurinol 100 Mg Tab) 200 mg PO DAILY [facility] Stop: 08/24/20 08:59 Last Admin: 08/02/20 08:25 Dose: 200 mg Documented by: Amlodipine Besylate (Amlodipine Besylate 5 Mg Tab) 5 mg PO DAILY [facility] Stop: 08/24/20 08:59 Last Admin: 07/25/20 07:51 Dose: 5 mg Documented by: Aspirin (Aspirin 81 Mg Chew) 81 mg PEG DAILY [facility] Stop: 08/26/20 09:59 Last Admin: 08/02/20 08:23 Dose: 81 mg Documented by: Bumetanide (Bumetanide 1 Mg Tab) 1 mg PO QAM [facility] Stop: 08/28/20 23:34 Last Admin: 08/02/20 08:23 Dose: 1 mg Documented by: Chlorhexidine Gluconate (Chlorhexidine Gluconate 0.12% 480 Ml) 15 ml MT BID [facility] Stop: 08/24/20 08:59 Last Admin: 08/02/20 08:29 Dose: 15 ml Documented by: Dextrose (Dextrose 50% 50 Ml Syringe) 25 - 50 ml IV UD PRN; Protocol PRN Reason: Hypoglycemia Protocol Stop: 08/24/20 08:53 Enteral Nutritional Formula (Peptamen 1.5 Bhavin 1,000 Ml Bag) 1,000 ml PEG UD [facility]; Protocol Stop: 08/29/20 16:14 Last Admin: 08/01/20 19:45 Dose: 1,000 ml Documented by: Fluticasone Propionate (Fluticasone Propionate Na Spr 16 Gm Btl) 2 sprays NA DAILY [facility] Stop: 08/24/20 08:59 Last Admin: 08/02/20 08:24 Dose: 2 sprays Documented by: Fluticasone/Vilanterol (Fluticasone/Vilanterol 200/25mcg 14 Puffs/Inhaler) 1 puffs INH DAILY [facility] Stop: 08/24/20 08:59 Last Admin: 08/02/20 08:23 Dose: 1 puffs Documented by: Glucagon (Glucagon For Inj 1 Mg Vial) 1 mg SQ UD PRN; Protocol PRN Reason: Hypoglycemia Protocol Stop: 08/24/20 08:53 Glucose (Glucose 10 Tabs/Tube) 4 - 8 tabs PO UD PRN; Protocol PRN Reason: Hypoglycemia Protocol Stop: 08/24/20 08:53 Glucose (Glucose 40% Gel 15 Gm Tube) 15 - 30 gm PO UD PRN; Protocol PRN Reason: Hypoglycemia Protocol Stop: 08/24/20 08:53 Heparin Sodium (Porcine) (Heparin Sod 5,000 Unit/0.5 Ml Vial) 5,000 units SQ Q12 [facility] Stop: 08/24/20 20:59 Last Admin: 08/02/20 08:24 Dose: 5,000 units Documented by: Cefepime HCl 2,000 mg/ Syringe 20 mls @ 5 mls/min IV DAILY@1600 [facility]; Protocol Stop: 08/05/20 15:59 Last Admin: 08/01/20 15:46 Dose: 5 mls/min Documented by: Insulin Glargine (Insulin Glargine Solostar 100 Units/Ml 3 Ml Pen) 12 units SQ DAILY@0600 [facility] Stop: 08/31/20 05:59 Last Admin: 08/02/20 05:59 Dose: 12 units Documented by: Insulin Human Regular (Insulin Human Regular) 0 units SC Q6 [facility]; Protocol Stop: 08/26/20 11:59 Last Admin: 08/02/20 12:27 Dose: 5 units Documented by: Lansoprazole (Lansoprazole 30 Mg Soltab) 30 mg PEG DAILY [facility]; Protocol Stop: 08/27/20 08:59 Last Admin: 08/02/20 08:25 Dose: 30 mg Documented by: Loratadine (Loratadine 10 Mg Tab) 10 mg PO DAILY [facility] Stop: 08/24/20 08:59 Last Admin: 08/02/20 08:23 Dose: 10 mg Documented by: Losartan Potassium (Losartan Potassium 25 Mg Tab) 12.5 mg PO DAILY [facility] Stop: 08/24/20 08:59 Last Admin: 08/02/20 08:23 Dose: 12.5 mg Documented by: Metoclopramide HCl (Metoclopramide Hcl 5 Mg Tablet) 5 mg PO BIDM PRN PRN Reason: nausea and vomiting Stop: 08/23/20 22:55 Metoprolol Tartrate (Metoprolol Tartrate 25 Mg Tab) 12.5 mg PO QAM [facility] Stop: 08/24/20 08:59 Last Admin: 07/25/20 07:49 Dose: 12.5 mg Documented by: Miconazole Nitrate (Miconazole Nitrate Powder 43 Gm) 1 appln EXT PRN PRN PRN Reason: rash Stop: 08/23/20 22:55 Last Admin: 07/27/20 07:56 Dose: 1 appln Documented by: Mirtazapine (Mirtazapine Tab 15 Mg Tab) 30 mg PO HS [facility] Stop: 08/24/20 20:59 Last Admin: 07/30/20 20:24 Dose: 30 mg Documented by: Miscellaneous (Carbohydrates For Hypoglycemia ) 15 - 30 gm PO UD PRN PRN Reason: Hypoglycemia Protocol Stop: 08/24/20 08:53 Miscellaneous Information (Cefepime Consult Active) 1 ea N/A UD PRN PRN Reason: Consult Stop: 08/24/20 00:15 Miscellaneous Information (Pharmacy Glycemic Mgmt Consult) 1 ea N/A UD PRN; Protocol PRN Reason: Consult Stop: 08/24/20 09:06 Montelukast Sodium (Montelukast Sodium 10 Mg Tablet) 10 mg PO DAILY [facility] Stop: 08/24/20 08:59 Last Admin: 08/02/20 08:25 Dose: 10 mg Documented by: Multi-Ingredient Cream (Eucerin Cr 120 Gm Jar) 1 appln EXT BID [facility] Stop: 08/24/20 08:59 Last Admin: 08/02/20 08:29 Dose: 1 appln Documented by: Nystatin (Nystatin Cr 15 Gm Tube) 1 appln EXT BID [facility] Stop: 08/24/20 08:59 Last Admin: 08/02/20 08:28 Dose: 1 appln Documented by: Senna/Docusate Sodium (Docusate Sodium/Senna 50/8.6mg Tab) 2 tab PO BID [facility] Stop: 08/24/20 08:59 Last Admin: 08/02/20 08:25 Dose: Not Given Documented by: Sodium Chloride (Sodium Chloride 0.65% Na Soln 45 Ml ([facility])) 2 sprays NA DAILY [facility] Stop: 08/24/20 08:59 Last Admin: 08/02/20 08:24 Dose: 2 sprays Documented by: Sterile Water (Tube Feeding Water Flush) 200 ml GT Q4H [facility] Stop: 08/29/20 14:29 Last Admin: 08/02/20 14:35 Dose: 200 ml Documented by:
[2020-08-02] MEDS: BUMETANIDE 1 MG TAB PO SCH (08:23)
[2020-08-02] MEDS: LORATADINE 10 MG TAB PO SCH (08:23)
[2020-08-02] MEDS: ASPIRIN 81 MG CHEW PEG SCH (08:23)
[2020-08-02] MEDS: FLUTICASONE/VILANTEROL 200/25MCG 14 PUFFS/INHALER INH SCH (08:23)
[2020-08-02] MEDS: LOSARTAN POTASSIUM 25 MG TAB PO SCH (08:23)
[2020-08-02] MEDS: FLUTICASONE PROPIONATE NA SPR 16 GM BTL SCH (08:24)
[2020-08-02] MEDS: SODIUM CHLORIDE 0.65% NA SOLN 45 ML (OCEAN) SCH (08:24)
[2020-08-02] MEDS: HEPARIN SOD 5,000 UNIT/0.5 ML VIAL SQ SCH ×2 (08:24→20:27)
[2020-08-02] MEDS: LANSOPRAZOLE 30 MG SOLTAB PEG SCH (08:25)
[2020-08-02] MEDS: allopurinoL 100 MG TAB PO SCH (08:25)
[2020-08-02] MEDS: DOCUSATE SODIUM/SENNA 50/8.6MG TAB PO SCH ×2 (08:25→20:29)
[2020-08-02] MEDS: MONTELUKAST SODIUM 10 MG TABLET PO SCH (08:25)
[2020-08-02] MEDS: NYSTATIN CR 15 GM TUBE EXT SCH ×2 (08:28→20:29)
[2020-08-02] MEDS: CHLORHEXIDINE GLUCONATE 0.12% 480 ML MT SCH ×2 (08:29→20:29)
[2020-08-02] MEDS: EUCERIN CR 120 GM JAR EXT SCH ×2 (08:29→20:27)
[2020-08-02] MEDS ORDERED: SODIUM PHOSPHATE 12 MMOL in SODIUM CHLORIDE 0.9% 250 ML IV ONE (08:30)
[2020-08-02] MEDS ORDERED: MAGNESIUM SULFATE / D5W 1 GM/100 ML BAG IV ONE (08:30)
[2020-08-02] MEDS: PEPTAMEN 1.5 CAL 1,000 ML BAG PEG SCH (18:07)
[2020-08-02] MEDS: ACETAMINOPHEN 500 MG TAB PO SCH (20:29)
[2020-08-03] MEDS: TUBE FEEDING WATER FLUSH GT SCH ×4 (02:34→14:15)
[2020-08-03] MEDS: INSULIN HUMAN REGULAR SC SCH ×3 (06:21→12:06)
[2020-08-03] MEDS: INSULIN GLARGINE SOLOSTAR 100 UNITS/ML 3 ML PEN SQ SCH (06:22)
[2020-08-03] MEDS: ASPIRIN 81 MG CHEW PEG SCH (08:15)
[2020-08-03] MEDS: FLUTICASONE/VILANTEROL 200/25MCG 14 PUFFS/INHALER INH SCH (08:16)
[2020-08-03] MEDS: LORATADINE 10 MG TAB PO SCH (08:16)
[2020-08-03] MEDS: BUMETANIDE 1 MG TAB PO SCH (08:16)
[2020-08-03] MEDS: LANSOPRAZOLE 30 MG SOLTAB PEG SCH (08:16)
[2020-08-03] MEDS: SODIUM CHLORIDE 0.65% NA SOLN 45 ML (OCEAN) SCH (08:17)
[2020-08-03] MEDS: DOCUSATE SODIUM/SENNA 50/8.6MG TAB PO SCH (08:17)
[2020-08-03] MEDS: allopurinoL 100 MG TAB PO SCH (08:17)
[2020-08-03] MEDS: MONTELUKAST SODIUM 10 MG TABLET PO SCH (08:17)
[2020-08-03] MEDS: HEPARIN SOD 5,000 UNIT/0.5 ML VIAL SQ SCH (08:18)
[2020-08-03] MEDS: FLUTICASONE PROPIONATE NA SPR 16 GM BTL SCH (08:19)
[2020-08-03] MEDS: EUCERIN CR 120 GM JAR EXT SCH (08:20)
[2020-08-03] MEDS: NYSTATIN CR 15 GM TUBE EXT SCH (08:20)
[2020-08-03] MEDS: CHLORHEXIDINE GLUCONATE 0.12% 480 ML MT SCH (08:20)
[2020-08-03] MEDS ORDERED: LOSARTAN POTASSIUM 25 MG TAB PO SCH (09:00)
[2020-08-03] MEDS ORDERED: METOPROLOL TARTRATE 25 MG TAB PO SCH (09:00)
[2020-08-03 09:32] LABS: Hemoglobin 9.7 g/dL (12.0-16.0); Mean Corpuscular Hemoglobin 31.5 pg (25-34); Mean Corpuscular Hgb Conc 32.3 g/dL (32-36); Mean Corpuscular Volume 97.4 fL (80-100); Mean Platelet Volume 10.9 fL (7.4-10.4); Platelet Count 279 K/uL (130-400); RDW Coefficient of Variation 18.9 % (11.5-14.5); Red Blood Count 3.08 M/uL (4.2-5.4)
[2020-08-03 10:04] LABS: BUN Creatinine Ratio 53.9 (10-20); Calcium 8.4 mg/dl (8.5-10.1); Creatinine Clr Calc Pharmacy 47.2 ml/min; Est GFR (African American) 69.4; Est GFR (Non-African American) 59.9; Magnesium 1.9 mg/dl (1.8-2.4); Phosphorus 2.6 mg/dl (2.5-4.9); Potassium 5.2 mmol/L (3.5-5.1)
[2020-08-03] MEDS ORDERED: SODIUM POLYSTYRENE SULFONATE 15G/60ML SUSP PO ONE (11:30)
--- NOTE | 2020-08-03 13:05 | Hospitalist Progress Note ---
Date of Service August 03, 2020 Assessment & Plan (1) Pneumonia: Met sepsis criteria on admission with tachycardia, high white count and confusion Bibasilar infiltrates on CXR Possible aspiration One of blood culture grew GPC in clusters Got one dose of vancomycin. MRSA PCR on the positive blood cultures came back negative +Blood culture finalized as CONS. Likely contaminant Repeat blood culture negative Continued cefepime, doxycycline and flagyl, finished abx course Leukocytosis resolved (2) Unresponsive episode: Reported to have unresponsive episode at the [facility] and also in the hospital Likely due to current illness - sepsis from pneumonia, ?? bacteremia Mental status continue to improve Per discussion with patient's son, baseline mental status is usually at least alert and oriented to person and place and able to hold conversation but has been weaker since recent hospitalization Patient was again very somnolent on July 31, work-up unrevealing Currently awake and alert and answering questions mostly appropriately,satting 97% on room air (3) Oropharyngeal dysphagia: Status post PEG tube placement during last admission Continue with PEG tube feeding and medications Strict NPO (4) JOANN (acute kidney injury): JOANN on CKD3, now resolved Cr 2.62 on admission >>2.76 Likely ATN in the setting of possible sepsis Currently Cr is <1 Restarted Bumex Restarted losartan, decreased dose Given mildly elevated K will hold losartan - re-eval. as outpt [employer] on board Tube flushes at 200cc q4h for now Monitor and avoid nephrotoxins Hypomagnesemia, hypophosphatemia -Low mag likely secondary to restarting Bumex -Replete and monitor (5) (HFpEF) heart failure with preserved ejection fraction: Held bumex initially in the setting of JOANN Restarted Bumex restarted losartan, decr. dose, rec. to hold losartan d/t mildly elev. K hold amlodipine, metoprolol decr. dose, BP currently stable (6) Type 2 diabetes mellitus: Continue lantus and sliding scale q6h while on tube feeding Pharm on board (7) PVD (peripheral vascular disease): Has chronic skin changes bilaterally Wound consult for sacral skin breakdown Regular turning and skin care (8) Asthma, moderate: No acute exacerbation Urinary retention Discussed with RNSheela Espinosa (08/01), voiding w/o difficulty DVT prophylaxis: Subcu heparin PT/OT CODE STATUS: DNR Pt is not moving by herself. Needs assistance with performing physical exam, and obtaining vital signs. Recently, during last admission, PEG tube placed d/t dysphagia. Now readmitted d/t unresponsive episode likely secondary to pneumonia. Overall prognosis is poor. Discussed with pt's son Luis, at the bedside last evening. Palliative medicine consulted. Admission and Anticipated Discharge Date Admission Date: July 24, 2020 Subjective Patient is lying in bed, in no acute distress. She is awake, and answering questions appropriately. She denies any complaints. Specifically denies any chest pain, shortness of breath, abdominal pain. Currently patient is satting 97% on room air. Review of Systems Review of Systems: All systems reviewed & are unremarkable except as noted in HPI & below Constitutional: no fever and no chills Respiratory: no cough and no dyspnea Cardiovascular: no chest pain and no palpitations Gastrointestinal: no abdominal pain, no nausea and no vomiting Genitourinary: no dysuria Physical Exam Physical Exam: Constitutional: elderly female laying in bed, + chronically ill appearing, pale, in no acute distress Eyes: PERRL, EOMI, conjunctivae normal, anicteric sclerae ENMT: external ear and nose normal, oropharynx normal Respiratory: no respiratory distress Auscultation: CTAB, no wheezing, rhonchi noted, diminished lung sounds at bases Cardiovascular: Rate/Rhythm: + irregularly irregular S1 S2 Gastrointestinal (Abdomen): normal bowel sounds, soft, nontender, PEG tube visualized Musculoskeletal: Upper extremity edema much improved LE no edema but has chronic stasis changes Moisture skin excoriation on back Neurologic: awake and alert, answers most questions appropriately, follows commands, moves extremities (UE>LE) no focal deficits Results & Data Results & Data ([facility]) Vital Signs (Past 12 Hours) Vital Signs Temp Pulse Pulse Resp BP Pulse Ox 08/03/20 11:56 36.9 C 69 18 145/82 H 97 08/03/20 08:14 36.3 C L 90 16 157/75 H 08/03/20 07:25 82 08/03/20 03:41 36.6 C 89 20 162/48 H 94
--- NOTE | 2020-08-03 13:24 | Discharge Summary ---
Date of Service August 03, 2020 Admission HPI Per Admitting Provider She is an 89-year-old female with significant past medical history of CAD, CHF, atrial fibrillation, CKD stage IV with anemia, diabetes, peripheral vascular disease and dysphagia status post PEG tube placement apparently was brought in from [facility] with decreased responsiveness and increasing confusion since this morning. She was at the [facility] recently and the following discharge from hospital she was in isolation for about 14 days. She came out of isolation this morning and she was noted to be very confused with decrease in saturation and decreased responsiveness and she was sent to emergency room for further evaluation. She was semiresponsive during my examination in the emergency room and she was moaning at times but without any other apparent distress. She was noted to be febrile with increased white count and chest x-ray did show bibasilar pneumonia. She is started with intravenous cefepime and as above advised for admission. Admission Exam Per Admitting Provider Physical Exam: Lying in bed moaning Constitutional: + acute distress (Morning at times without any shortness of breath), + ill appearing and + thin Eyes: Closed ENMT: external ear and nose normal, oropharynx normal Neck: trachea midline, no thyromegaly Respiratory: + respiratory distress (Minimal shortness of breath) Auscultation: + diminished lung sounds (Bibasilar crackles) Cardiovascular: Rate/Rhythm: + abnormal rate and + abnormal rhythm Heart Sounds: + murmur Gastrointestinal (Abdomen): Inspection/Auscultation: normal bowel sounds; abdomen not distended Percussion/Palpation: abdomen soft; abdomen nontender Neurologic: Minimal response to vocal commands. Lymphatic: no cervical or axillary lymphadenopathy Principal Diagnosis Pneumonia Ambulatory dysfunction Dysphagia, strict n.p.o., status post PEG tube placement Chronic CHF Discharge Exam Constitutional: elderly female laying in bed, + chronically ill appearing, pale, in no acute distress Eyes: PERRL, EOMI, conjunctivae normal, anicteric sclerae ENMT: external ear and nose normal, oropharynx normal Respiratory: no respiratory distress Auscultation: CTAB, no wheezing, rhonchi noted, diminished lung sounds at bases Cardiovascular: Rate/Rhythm: + irregularly irregular S1 S2 Gastrointestinal (Abdomen): normal bowel sounds, soft, nontender, PEG tube visualized Musculoskeletal: Upper extremity edema much improved LE no edema but has chronic stasis changes Moisture skin excoriation on back Neurologic: awake and alert, answers most questions appropriately, follows commands, moves extremities (UE>LE) no focal deficits Discharge Data Allergies Allergy/AdvReac Type Severity Reaction Status Date / Time clofibrate Allergy Severe SWELLING Verified 07/24/20 19:09 rabeprazole Allergy Intermediate SOB/COUGHING Verified 07/24/20 19:09 AND THROAT FELT TIGHT/ABD. CRAMPING fexofenadine Allergy Mild RASH Verified 07/24/20 19:09 Fibrate Anti-Lipidemics Allergy Mild SWELLING Verified 07/24/20 19:09 fluvastatin Allergy Mild HIVES Verified 07/24/20 19:09 metformin Allergy Mild URINARY Verified 07/24/20 19:09 FREQUENCY/RASH/ITCH morphine Allergy Mild ITCHY/HIVES Verified 07/24/20 19:09 moxifloxacin Allergy Mild ITCHY/NAUSE Verified 07/24/20 19:09 A Penicillins Allergy Mild HIVES Verified 07/24/20 19:09 Quinolones Allergy Mild RASH Verified 07/24/20 19:09 amoxicillin Allergy Unknown Unknown Verified 07/24/20 19:09 chlorpropamide Allergy Unknown UNKNOWN Verified 07/24/20 19:09 NSAIDS (Non-Steroidal Allergy Unknown UNKNOWN Verified 07/24/20 19:09 Anti-Inflamma ranitidine Allergy Unknown Unknown Verified 07/24/20 19:09 Sulfa (Sulfonamide Allergy Unknown UNKNOWN Verified 07/24/20 19:09 Antibiotics) blue dye AdvReac Mild MYALGIAS Verified 07/24/20 19:09 AND CRAMPS codeine AdvReac Mild FEELS Verified 07/24/20 19:09 "HIGH" ON/ITCHING dexlansoprazole AdvReac Mild MYALGIAS Verified 07/24/20 19:09 AND CRAMPS gemfibrozil AdvReac Mild ABDOMINAL Verified 07/24/20 19:09 CRAMPS AND DIZZINESS lisinopril AdvReac Mild COUGH Verified 07/24/20 19:09 lorazepam AdvReac Mild 0 Verified 07/24/20 19:09 rofecoxib AdvReac Mild INDIGESTION Verified 07/24/20 19:09 Consultations 07/24/20 20:27 ED Decision to Admit Stat 07/26/20 09:35 Consult Nephrology Routine 07/30/20 09:05 Consult Palliative Care Routine Ordered Studies 07/24/20 17:35 CT head/brain wo con Stat IMPRESSION: No acute intracranial abnormality. 07/26/20 10:10 US renal/blad retro comp Routine IMPRESSION: 1. No renal calculi or hydronephrosis. 2. Bilateral renal calcifications with cortical thinning. 3. Decompressed urinary bladder. 07/31/20 19:22 CT head/brain wo con Urgent IMPRESSION: No acute intracranial findings. No change in appearance of the brain. Hospital Course (1) Pneumonia: Met sepsis criteria on admission with tachycardia, high white count and confusion Bibasilar infiltrates on CXR Possible aspiration One of blood culture grew GPC in clusters Got one dose of vancomycin. MRSA PCR on the positive blood cultures came back negative +Blood culture finalized as CONS. Likely contaminant Repeat blood culture negative Continued cefepime, doxycycline and flagyl, finished abx course Leukocytosis resolved (2) Unresponsive episode: [facility] the [facility] Likely due to current illness - sepsis from pneumonia, ?? bacteremia Mental status continue to improve Per discussion with patient's son, baseline mental status is usually at least alert and oriented to person and place and able to hold conversation but has been weaker since recent hospitalization Patient was again very somnolent on July 31, work-up unrevealing Currently awake and alert and answering questions mostly appropriately,satting 97% on room air (3) Oropharyngeal dysphagia: Status post PEG tube placement during last admission Continue with PEG tube feeding and medications Strict NPO (4) JOANN (acute kidney injury): JOANN on CKD3, now resolved Cr 2.62 on admission >>2.76 Likely ATN in the setting of possible sepsis Currently Cr is <1 Restarted Bumex Restarted losartan, decreased dose Given mildly elevated K will hold losartan - re-eval. as outpt [employer] on board Tube flushes at 200cc q4h for now Monitor and avoid nephrotoxins Hypomagnesemia, hypophosphatemia -Low mag likely secondary to restarting Bumex -Replete and monitor (5) (HFpEF) heart failure with preserved ejection fraction: Held bumex initially in the setting of JOANN Restarted Bumex restarted losartan, decr. dose, rec. to hold losartan d/t mildly elev. K hold amlodipine, metoprolol decr. dose, BP currently stable (6) Type 2 diabetes mellitus: Continue lantus and sliding scale q6h while on tube feeding Pharm on board (7) PVD (peripheral vascular disease): Has chronic skin changes bilaterally Wound consult for sacral skin breakdown Regular turning and skin care (8) Asthma, moderate: No acute exacerbation Urinary retention Discussed with RN. YARA Espinosa (08/01), voiding w/o difficulty CODE STATUS: DNR Pt is not moving by herself. Needs assistance with performing physical exam, and obtaining vital signs. Recently, during last admission, PEG tube placed d/t dysphagia. Now readmitted d/t unresponsive episode likely secondary to pneumonia. Overall prognosis is poor. Discussed with pt's son Luis, at the bedside last evening. Palliative medicine consulted. Plan to fill out POLST. Total Time Total Time Spent Total Time Spent (In Minutes): 40 Total Time Includes: Examination of the Patient, Discharge Planning and Medication Reconciliation Discharge Plan Discharge Items Patient Disposition: Transfer [facility] Reason For Visit: BILATERAL PNEUMONIA Discharge Diagnosis: Pneumonia Ambulatory dysfunction Dysphagia, strict n.p.o., status post PEG tube placement Chronic CHF Condition on Discharge: Fair Activity: Per Instructions section Non-emergency contact: Primary Care Provider Call non-emergency contact if: you have any medication questions and your symptoms worsen Follow-up/Referrals: Agustina Mock, DO [Primary Care Provider] - Diet: Other - See Diet Comment Diet Comment: Tube feeds, see dietitian info Addtl Attending Provider Instructions: Pt is on tube feeds. Strict n.p.o. Elevated head of bed, risk for aspiration. Was admitted with dehydration, and pneumonia. Recommend monitoring input and output closely to prevent dehydration. Mild electrolyte abnormalities, recommend to recheck BMP, Mag and Phos within 3 days. Tube feeds adjustment per dietitian at [facility]. Recommend use incentive spirometry as tolerated. Pending Studies at Discharge: No Stand-Alone Forms: My [facility] Skilled Items Patient informed of condition?: Yes DNR: Yes Discharge Level of Care: Skilled Communicable Disease: No Discharge Prognosis: Other Lines: None Urinary Catheter: No Medications and DC Order Prescriptions: Continued montelukast [Singulair] 10 mg tablet 10 mg PO DAILY RF: 0 acetaminophen 500 mg Tablet 500 mg PO HS MDD 3000 MG APAP/24 HOURS RF: 0 aspirin 81 mg Tablet,Chewable 81 mg PO DAILY RF: 0 azelastine 0.15 % (205.5 mcg) spray,non-aerosol 2 spray INTRANASAL AMHS RF: 0 omeprazole 40 mg capsule,delayed release(DR/EC) 40 mg PO QAM RF: 0 mirtazapine 30 mg tablet 30 mg PO HS RF: 0 bumetanide 1 mg tablet 1 mg PO DAILY RF: 0 sodium chloride [Saline Nasal] 0.65 % Aerosol,[place] 2 spray INTRANASAL DIRECTED RF: 0 Eucerin Cream 1 applic TOPICAL BID RF: 0 Vitron-C 65 mg iron- 125 mg Tablet,Delayed Release (Dr/Ec) 1 tab PO DAILY RF: 0 Breo Ellipta 200-25 mcg/dose blister with device 1 inh INHALATION DAILY RF: 0 acetaminophen 325 mg Tablet 650 mg PO Q4H MDD 3000 MG APAP/24 HOURS PRN (Reason: Fever Or Pain) RF: 0 ipratropium-albuterol 0.5 mg-3 mg(2.5 mg base)/3 mL solution for nebulization 3 ml INHALATION Q4H PRN (Reason: Wheezing) RF: 0 ondansetron HCl [Zofran] 4 mg Tablet 4 mg PO Q6H PRN (Reason: Nausea/Vomiting) RF: 0 Aroma Therapy See Rx Instructions .ROUTE .COMPLEX RF: 0 nystatin 100,000 unit/gram Cream 1 applic EXT BID Qty: 30 RF: 0 Desenex 2 % Powder 1 applic EXT PRN PRN (Reason: rash) 30 Days Qty: 43 RF: 0 metoclopramide HCl 5 mg Tablet 5 mg PO BIDM PRN (Reason: nausea and vomiting) Qty: 10 RF: 0 Lantus Solostar U-100 Insulin 100 unit/mL (3 mL) Insulin Pen 15 unit subcut DAILY 30 Days Qty: 4.5 RF: 0 sennosides-docusate sodium [Senna-S] 8.6-50 mg Tablet 2 tab PO BID RF: 0 allopurinol 100 mg tablet 200 mg PO DAILY RF: 0 fluticasone propionate [Flonase Allergy Relief] 50 mcg/actuation [place],Suspension 2 spray INTRANASAL DAILY RF: 0 loratadine 10 mg Tablet 10 mg PO DAILY RF: 0 Glucagon Emergency Kit (human) 1 mg recon soln 0 mg subcut UD RF: 0 Vital 1.0 Bhavin 0.04 gram- 1 kcal/mL Liquid 0 ea feeding tube UD RF: 0 chlorhexidine gluconate 0.12 % mouthwash 15 ml PO BID RF: 0 Changed metoprolol tartrate 25 mg Tablet 6.25 mg PO QAM Qty: 0 RF: 0 Discontinued amlodipine 5 mg tablet 5 mg PO DAILY RF: 0 losartan 25 mg tablet 12.5 mg PO DAILY Qty: 0 RF: 0 Discharge Orders: Discharge Order (Routine); Ordered 08/03/20 Ordered By: Juan Ramos Admission Data Admit Date/Time: 07/24/20 21:22 Attending Provider: Juan Ramos Admit Provider: Jamal Salas Primary Care Provider: Agustina Mock Other Providers: Antonino Torrez ; Amy Johns ; Nicole Cano ; Amada Vieira I. ; Marjorie Brito
--- NOTE | 2020-08-03 19:06 | Nephrology Progress Note ---
Date of Service August 03, 2020 Assessment & Plan (1) JOANN (acute kidney injury): Patient with now resolved acute kidney injury likely due to ischemic ATN in setting of sepsis from presumed aspiration PNA. Urinalysis on admission showed a lot of hyaline casts but no RBCs. Management of ATN is supportive. Renal function improved. presented w/ creatinine 2.6 on 07/24; peaked at 2.8 on 07/25; then steady down trend to 0.9 by 08/01 where it plateaud volume status ok today; mild hyperkalemia noted. note that she has in the past had advanced ckd, even to the point where I worried we would have to make plans about dialysis. more recently though, renal function has been better; will work to keep it better -bumex resumed; losartan held at d/c -plan bmp one week after hospital d/c -pt is on TF and strict NPO >>I note she has no renal f/u scheduled and will ensure she gets that , mostly to watch labs, see if she even needs losartan Admission and Anticipated Discharge Date Admission Date: July 24, 2020 Subjective seen on rounds this afternoon at 1345; no complaints > denies abd pain, sob, swelling, voiding concerns. Review of Systems Review of Systems: All systems reviewed & are unremarkable except as noted in HPI & below Constitutional: + fatigue and + weakness Physical Exam Constitutional: well developed, + frail appearing, cooperative (but tired) and comfortable; no acute distress Eyes: EOM intact bilaterally ENMT: Ears: no external ear abnormality Nose: no external nose abnormality Mouth: + dry oral mucous membranes and + edentulous Neck: no nuchal rigidity Respiratory: normal respiratory effort Auscultation: + diminished lung sounds Cardiovascular: Rate/Rhythm: regular rate and regular rhythm Extremities: + edema (trace dependent) Gastrointestinal (Abdomen): Inspection/Auscultation: normal bowel sounds Percussion/Palpation: abdomen soft; abdomen nontender PEG present, TF running Musculoskeletal: Extremities: + abnormal strength (generalized weakness) Skin: no rashes, warm and dry Neurologic: limited but appropriate/ fluent speech, no tremor; marked generalized weakness Psychiatric: Orientation: oriented to person and oriented to place Eye Contact: + poor eye contact Results & Data ([facility]) Vital Signs (Past 12 Hours) Vital Signs Temp Pulse Pulse Pulse Resp BP BP 08/03/20 15:30 79 08/03/20 14:05 36.9 C 69 88 18 145/82 H 155/74 H 08/03/20 11:56 36.9 C 69 18 145/82 H 08/03/20 08:14 36.3 C L 90 16 157/75 H 08/03/20 07:25 82 Pulse Ox 08/03/20 15:30 08/03/20 14:05 97 08/03/20 11:56 97 08/03/20 08:14 08/03/20 07:25 Laboratory Results 08/03/20 08:37 08/03/20 08:37
--- NOTE | 2020-08-17 13:16 | Coding Query ---
PRESSURE ULCER DOCUMENTATION To promote full compliance with coding requirements relating to patient care, physician participation is requested in all cases of legal office administrator uncertainty. Please assist us with the question(s) below: Please specify the known or suspected type by placing an "X" within the parenthesis (x). 1. A pressure ulcer of the Sacral (H&P documents may have sacral decubiti) If possible, please check the box that provides the specific stage of the pressure ulcer ( ) Stage I ( +) Stage II ( ) Stage III ( ) Stage IV ( ) Unstageable ( ) Unable to determine ( ) No Decubitus Ulcer of Sacral area - Ruled-Out 2. A pressure ulcer of the Heel (H&P documents may have Heel decubiti) If possible, please check the box that provides the specific stage of the pressure ulcer ( ) Stage I ( ) Stage II ( ) Stage III ( ) Stage IV ( ) Unstageable ( ) Unable to determine (+ ) No Decubitus Ulcer of Heel - Ruled-Out Please specify the laterality of the possible Heel decubiti: ( ) Left Heel ( ) Right Heel ( ) Both Heels ( ) Unknown laterality Thank you Carly LAM
--- NOTE | 2020-08-17 13:18 | Coding Query ---
PRESENT ON ADMISSION QUERY To promote full compliance with coding requirements relating to pateint care, physician participation is requested in all cases of loading checker uncertainty. Please assist us with the question(s) below: Please place an X within the parenthesis (x). The following diagnosis(es) listed in this patient's medical record require physician assistance to determine if they were present on admission (POA) or not. Please advise for each diagnosis whether it was present on admission, not present on admission, or if it was clinically undetermined. 1. Stage 2 Pressure Ulcer of Buttock (documented on the 07/30/20 Palliative Consultation) (X ) Present On Admission ( ) Not Present On Admission ( ) Clinically Undetermined Please specify laterality as well: ( ) Left Buttock ( ) Right Buttock ( ) Bilateral Buttock ( X ) Unknown Laterality Thank you Carly Miller *Definition of the present on admission (POA)-Present on admission is defined as present at the time the order for inpatient admission occurs. Conditions that develop during an outpatient encounter prior to a written order for inpatient admission (including emergency department, observation, or outpatient surgery) are considered present on admission. GERMAND
--- NOTE | 2020-08-17 13:23 | Coding Query ---
To promote full compliance with coding requirements relating to patient care, provider participation is requested in all cases of head of maintenance uncertainty. Please assist us with the question(s) below: Coding Question(s): The diagnosis(es) below was documented in the ER H&P, then subsequently fell off all further documentation. Please indicate if it is still a possible diagnosis or ruled out. Physician's Response(s): RESPIRATORY FAILURE ( ) Diagnosed and POA ( ) Diagnosed and not POA ( X ) Ruled out ( ) Other (please specify) Please clarify further below, if Respiratory Failure is diagnosed: ( ) Acute Respiratory Failure ( ) Acute on Chronic Respiratory Failure ( ) Chronic Respiratory Failure ( ) Respiratory Failure, Unspecified ( ) Other Respiratory Failure: Please Specify MTDD
--- NOTE | 2020-08-17 13:40 | Coding Query ---
CODING QUERY To promote full compliance with coding requirements relating to patient care, provider participation is requested in all cases of screen printing loader unloader uncertainty. Please assist us with the question(s) below: Coding Question(s): There is documentation in the record and on Discharge Summary of possible Sepsis and there is documentation on the Discharge Summary of, "One of blood culture grew GPC in clusters Got one dose of vancomycin. MRSA PCR on the positive blood cultures came back negative +Blood culture finalized as CONS. Likely contaminant Repeat blood culture negative Continued cefepime, doxycycline and flagyl, finished abx course". It is not clear if Possible Sepsis was treated or if this was ruled-out. Please clarify below, in your clinical opinion. ( ) Possible Sepsis ( ) Sepsis Ruled-Out ( X ) Other: Please Specify Pet met sepsis criteria and was treated for sepsis likely secondary to pneumonia. Bacteremia was ruled out. Physician's Response(s): Thank you Carly Miller Principal Diagnosis: "that condition established after study, to be chiefly responsible for occasioning the admission of the patient to the hospital for care." Co-Existing Principal Diagnosis: "when two or more diagnoses equally meet the criteria for principal diagnosis as determined by the circumstances of admission, diagnostic work up, and/or therapy provided, and the Alphabetic Index, Tabular List, or another coding guideline does not provide sequencing direction, any one of the diagnoses may be sequenced first." "When the physician has documented what appears to be a current diagnosis in the body of the record, but has not included the diagnosis in the final diagnostic statement, the physician should be asked whether the diagnosis should be added." (Source Coding [facility] 2 QTR90. p3-4) GENARO
== END 2020-08-03 17:57 | DRG 871 ==
LOC: ED 17:20 → SUATTDRO 21:22 → 2N 21:22